=== PATIENT | male | born 1950 | race Caucasian/White ===

== ENCOUNTER → 2016-10-16 | Outpatient (CLI) | payer MEDICARE, OTHER ==
--- NOTE | 2016-10-16 11:06 | XR ---
EXAMINATION TYPE: XR Hip RT and AP Pelvis DATE OF EXAM: 10/16/2016 10:30 AM COMPARISON: NONE HISTORY: Pain TECHNIQUE: A single AP view of the pelvis is obtained. Two views of the right hip are obtained. FINDINGS: There is no acute fracture/dislocation evident in the pelvis. The hip and sacroiliac join ts appear symmetric and unremarkable. The overlying soft tissue appears unremarkable. Two views of right hip show no acute fracture or dislocation. No focal lytic or sclerotic lesion see n in the proximal right femur. The overlying soft tissue is unremarkable. IMPRESSION: There is no acute fracture or dislocation in the pelvis or hip.
== END | disposition home or self-care (01) ==
LOC: RADXRMAIN 10:18
PROVIDERS: ATTEND Family Medicine
DX: M25.851 Other specified joint disorders, right hip (principal)
CPT/HCPCS: 73502

== ENCOUNTER → 2017-02-09 | Outpatient (CLI) | payer MEDICARE, OTHER ==
--- NOTE | 2017-02-09 12:56 | XR ---
EXAMINATION TYPE: XR chest 2V DATE OF EXAM: 02/09/2017 12:48 PM COMPARISON: NONE HISTORY: Shortness of breath TECHNIQUE: Frontal and lateral views of the chest are obtained. FINDINGS: Scattered senescent parenchymal changes noted. Hyperinflation compatible with COPD. No evidence for infiltrate. No evidence for atelectasis. Heart size is stable. Mediastinal structures are stable and grossly unremarkable. No evidence for hilar prominence. Degenerative changes dorsal spine. IMPRESSION: 1. No evidence for acute pulmonary disease.
== END | disposition home or self-care (01) ==
LOC: RADXRMAIN 12:21
PROVIDERS: ATTEND Family Medicine
DX: Z01.818 Encounter for other preprocedural examination (principal); I10 Essential (primary) hypertension
CPT/HCPCS: 71020; 93005

== ENCOUNTER → 2017-02-13 | Outpatient (CLI) | payer MEDICARE, OTHER ==
[2017-02-13 09:35] LABS: Prothrombin Time 10.6 sec (9.0-12.0)
[2017-02-13 09:43] LABS: Partial Thromboplastin Time 21.7 sec (22.0-30.0)
== END | disposition home or self-care (01) ==
LOC: LABWHC1 09:02
PROVIDERS: ATTEND Family Medicine
DX: Z01.812 Encounter for preprocedural laboratory examination (principal)
CPT/HCPCS: 36415; 85610; 85730

== ENCOUNTER → 2017-04-08 | Outpatient (CLI) | payer MEDICARE, OTHER ==
--- NOTE | 2017-04-08 14:18 | US ---
EXAMINATION TYPE: US venous doppler duplex LE DATE OF EXAM: 04/08/2017 2:04 PM COMPARISON: US CLINICAL HISTORY: M79.661, M79.662 Pain-Bilateral legs. Follow up after hip replacement SIDE PERFORMED: Bilateral TECHNIQUE: The lower extremity deep venous system is examined utilizing real time linear array sonog alan with graded compression, doppler sonography and color-flow sonography. VESSELS IMAGED: External Iliac Vein (EIV) Common Femoral Vein Deep Femoral Vein Greater Saphenous Vein * Femoral Vein Popliteal Vein Small Saphenous Vein * Proximal Calf Veins (* superficial vessels) Grayscale, color doppler, spectral doppler imaging performed of the deep veins of the lower extremiti es. There is normal flow, compressibility, vascular waveforms bilaterally. Right Leg: Appears negative for DVT Left Leg: Appears negative for DVT IMPRESSION: No evidence for DVT.
== END | disposition home or self-care (01) ==
LOC: RADUSWWP 13:39
PROVIDERS: ATTEND Orthopaedic Surgery
DX: M79.661 Pain in right lower leg (principal); M79.662 Pain in left lower leg
CPT/HCPCS: 93970

== ENCOUNTER → 2017-04-29 | Outpatient (CLI) | payer MEDICARE, OTHER ==
--- NOTE | 2017-04-29 11:48 | XR ---
EXAMINATION TYPE: XR lumbosacral spine min 4V DATE OF EXAM: 04/29/2017 CLINICAL HISTORY: Low back pain TECHNIQUE: Frontal, lateral, and oblique images of the lumbar spine are obtained. COMPARISON: Lumbar spine x-ray August 19, 2016 FINDINGS: There are 5 lumbar type vertebral bodies redemonstrated. The lumbar spine shows satisfact ory alignment without evidence of acute fracture or dislocation. Vertebral body heights normal limits . There is persistent mild to moderate disc space narrowing and spurring L3-L4 level. There is persis tent moderate to severe disc space narrowing with mild spurring L5-S1 level. Vacuum disc phenomenon i s present bilaterally at these levels. Facet arthropathy mid to lower lumbar levels is redemonstrated . Osseous structures are somewhat demineralized. The oblique images appear within normal limits. Vasc ular calcification of overlying abdominal aorta is seen. There is partial visualization of metallic h ardware from hip surgery. IMPRESSION: Multilevel degenerative changes L4-L5 and L5-S1 level redemonstrated, no significant ramirez ge from prior.
--- NOTE | 2017-04-29 11:52 | XR ---
EXAMINATION TYPE: XR pelvis AP view DATE OF EXAM: 04/29/2017 CLINICAL HISTORY: Low back and pelvic pain. TECHNIQUE: A single AP view of the pelvis is obtained. COMPARISON: Pelvic x-ray 10/16/2016. FINDINGS: There is no acute fracture/dislocation evident in the pelvis. Metallic hardware from left hip surgery is redemonstrated only partially imaged. Slight asymmetric protrusion on the left is stab le. There is interval total right hip replacement. Sacroiliac joints are maintained. Surgical clips l eft groin is redemonstrated. Osseous structures are overall somewhat demineralized. Pubic symphysis i s not suspiciously widened. IMPRESSION: There is no new or acute finding identified to account for patient's symptoms. Other fin dings as noted above.
--- NOTE | 2017-04-29 11:54 | XR ---
EXAMINATION TYPE: XR sacrum coccyx DATE OF EXAM: 04/29/2017 COMPARISON: NONE HISTORY: 2 views of sacrum and coccyx are obtained TECHNIQUE: Low back and sacral pain FINDINGS: Osseous structures are demineralized. There is no acute displaced sacral or coccygeal fract ure seen. Sacroiliac joints are maintained. Tubular and punctate densities overlying the lower pelvis are felt to reflect central zone calcifications in prostate gland. IMPRESSION: No significant new or acute finding is seen to account for patient's symptoms.
== END | disposition home or self-care (01) ==
LOC: RADXRMAIN 11:10
PROVIDERS: ATTEND Family Medicine
DX: M47.817 Spondylosis without myelopathy or radiculopathy, lumbosacral region (principal); M53.3 Sacrococcygeal disorders, not elsewhere classified; R10.2 Pelvic and perineal pain
CPT/HCPCS: 72110; 72170; 72220

== ENCOUNTER → 2017-11-23 | Outpatient (CLI) | payer MEDICARE, OTHER ==
--- NOTE | 2017-11-23 12:53 | MR ---
EXAMINATION TYPE: MR lumbar spine wo con DATE OF EXAM: 11/23/2017 11:26 AM COMPARISON: NONE HISTORY: Radiculopathy, lumbar region, pain Multiplanar, MultiSpin echo imaging of the lumbar spine was performed. L1-L2: Normal disc appearance without desiccation. No herniation, protrusion or disc bulging. No ca nal stenosis is present. Foramina are patent bilaterally. L2-L3: Normal disc appearance without desiccation. No herniation, protrusion or disc bulging. No ca nal stenosis is present. Foramina are patent bilaterally. L3-L4: Mild disc desiccation noted. Mild posterior disc bulge with mild effacement ventral thecal sac . Hypertrophy of the ligamentum flavum and facet joint arthropathy result in borderline central steno sis. Mild left greater than right foraminal encroachment. L4-L5: Moderate to severe disc desiccation. Circumferential disc bulge greatest posteriorly. Effaceme nt of the ventral thecal sac without central stenosis. Bilateral foraminal encroachment. L5-S1: Severe disc desiccation with partial encapsulating spur resulting in disc endplate complex. Mi ld effacement ventral thecal sac. No evidence for central stenosis. Bilateral foraminal encroachment. Lumbar segments are intact. No paraspinal masses are identified. Conus medullaris has a normal appe arance. Ventral spondylosis identified. IMPRESSION: 1. Degenerative disc disease as discussed. 2. Borderline central stenosis at L3-4. 3. Varying degrees of foraminal encroachment as outlined above.
== END | disposition home or self-care (01) ==
LOC: RADMRIMAIN 10:46
PROVIDERS: ATTEND Family Medicine
DX: M51.16 Intervertebral disc disorders with radiculopathy, lumbar region (principal)
CPT/HCPCS: 72148

== ENCOUNTER → 2018-01-12 | Outpatient (CLI) | payer MEDICARE, OTHER ==
[2018-01-08 13:33] VITALS: BMI 31.3
[2018-01-12 11:59] VITALS: BP 190/97; PULSE 56; RESP 16
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
--- NOTE | 2018-01-12 12:23 | P.PN ---
Progress Note - Text Progress Note Date: 01/12/18 This is an addendum to the note dictated earlier= patient blood pressure measurement was 190/97 measured , after multiple measurement, she'll continue to have severe pressure, patient is advised to see his primary care TISH and he reports that he is in his see her today, and he will discuss with his primary care , the appropriate treatment for hypertension
== END | disposition home or self-care (01) ==
LOC: PNWHC3 10:39
PROVIDERS: ATTEND Specialist
DX: G89.29 Other chronic pain (principal); M54.5 Low back pain; M51.36 Other intervertebral disc degeneration, lumbar region; M47.816 Spondylosis without myelopathy or radiculopathy, lumbar region; M46.86 Other specified inflammatory spondylopathies, lumbar region; I25.10 Atherosclerotic heart disease of native coronary artery without angina pectoris; E11.9 Type 2 diabetes mellitus without complications; E78.5 Hyperlipidemia, unspecified; I10 Essential (primary) hypertension; I25.2 Old myocardial infarction; Z87.891 Personal history of nicotine dependence; Z95.1 Presence of aortocoronary bypass graft; Z79.891 Long term (current) use of opiate analgesic
CPT/HCPCS: 99211

== ENCOUNTER 2018-02-22 07:49 | Day surgery (SDC) | payer MEDICARE, OTHER ==
[2018-02-18 10:26] VITALS: BMI 32.1
[~2018-02-22 07:49] MED LIST: LACTATED RINGERS 1,000 ML IV SCH
[2018-02-22 09:45] VITALS: RESP 16; TEMP 97.9
[2018-02-22] MEDS ORDERED: LIDOCAINE 1% 20 ML VIAL (10MG/ML) FOR IV START INTRADERMA ONE (09:52)
[2018-02-22 09:55] LABS: Glucose,Whole Blood 118 mg/dL (75-99)
--- NOTE | 2018-02-22 11:04 | P.PCN ---
Date of Procedure: 02/22/18 Surgeon: Basim Tierney Description of Procedure: PREOPERATIVE DIAGNOSIS: Lumbar spondylosis without myelopathy and facet arthropathy. POSTOPERATIVE DIAGNOSIS: Lumbar spondylosis without myelopathy and facet arthropathy. PROCEDURE : L3-L4, L4-L5 and L5-S1 diagnostic medial branch blocks under fluoroscopic guidance. The procedure is performed using fluoroscopic guidance during needle placement to assure proper position and maximize safety. ANESTHESIA: Local with 1% lidocaine; conscious sedation with IV versed EBL: Minimal PROCEDURE INDICATION: Patient with lumbar facet arthropathy signs and symptoms, here for diagnostic medial branch block #2 today. Pt does not take any blood thinning medications. PROCEDURE DESCRIPTION: The patient was seen and identified in the preoperative area. Risks, benefits, complications, and alternatives were discussed with the patient (including but not limited to incomplete pain relief, bleeding, infection, nerve damage, and allergies to medications), the patient agreed to proceed with the procedure and signed the consent after all questions were answered. Patient was taken to the OR and time out was completed to verify proper patient, position, laterality of pain, and allergies. Pt was placed in the prone position and a pillow was placed under the abdomen to reduce lumbar lordosis. The lumbosacral area was prepped and draped in the usual sterile fashion. Using oblique fluoroscopy, the eye of the "Yrn dog" of right L4 vertebral body, which corresponds to the path of the medial branch originating from the level above, which is L3 in this case, was identified. Subsequently, a 22-gauge 3.5-inch spinal needle was inserted under fluoroscopic guidance toward the eye of the "Yrn dog" of the right L4 vertebral body, corresponding to the junction of the superior articular process and the transverse process of the pedicle of the same level. After needle tip confirmation on lateral view and after negative aspiration for CSF and blood and without paresthesias, 1 mL of a 6 ml solution of 0.5% preservative-free bupivacaine and 40 mg Kenalog was injected. Subsequently the needle was withdrawn intact and the same procedure was repeated for the right L4, right L5, left L3, left L4, and left L5 medial branches which together with right L3 medial branch correspond to the sensory innervation of the bilateral L3-L4, L4-L5, and L5-S1 facet joints. Needle was withdrawn intact after each injection. At the end of the procedure, the skin was cleansed and bandages were applied. COMPLICATIONS: None. DISPOSITION/PLAN: The patient taken to the recovery area after the procedure in a stable condition for observation. Patient was reexamined prior to discharge and there were no issues. Patient was discharged home, accompanied by an adult, after meeting discharged criteria. Discharge instructions were give to the patient by the staff. Patient was specifically instructed not to drive today and to rest for the rest of the day. Patient will follow up in the clinic clinic in 2-4 weeks.
[2018-02-22] MEDS ORDERED: IV FLUID CONTINUATION 1,000 ML IV ONE (11:10)
--- NOTE | 2018-02-22 11:30 | FL ---
Fluoroscopy HISTORY: Pain 7 seconds fluoroscopy time supplied to the referring clinician. 3 intraoperative C-arm images docume nt the procedure. See dictated report from anesthesia.
[2018-02-22 11:32] VITALS: BP 162/78; PULSE 57
== END 2018-02-22 11:48 | disposition home or self-care (01) ==
LOC: ORPAIN 07:49
PROVIDERS: ATTEND Anesthesiology
DX: M47.816 Spondylosis without myelopathy or radiculopathy, lumbar region (principal); I25.10 Atherosclerotic heart disease of native coronary artery without angina pectoris; I10 Essential (primary) hypertension; E11.9 Type 2 diabetes mellitus without complications; Z88.6 Allergy status to analgesic agent
CPT/HCPCS: 64493; 64494; 64495; J2250; J3301; 99152

== ENCOUNTER → 2018-03-04 | Outpatient (CLI) | payer MEDICARE, OTHER ==
[2018-03-04 12:50] VITALS: BP 187/88; PULSE 54; RESP 16
--- NOTE | 2018-03-04 13:06 | P.PAINPG ---
Subjective Progress Note Date: 03/04/18 Principal diagnosis: Bilateral lumbar spondylosis His very pleasant 67-year-old gentleman who is seen in our clinic for intractable low back pain. He is undergone previous diagnostic medial branch blocks on 2 separate occasions. The first time gave him nearly 2 weeks of complete pain relief. The second time relieves his pain 100% for 3 days. He presents today requesting further management of his low back pain. Objective - Vital Signs Vital signs: Vital Signs Temp Pulse 54 L 03/04/18 12:43 Resp 16 03/04/18 12:43 BP 187/88 03/04/18 12:43 Pulse Ox 98 03/04/18 12:43 Intake & Output 03/03/18 03/04/18 03/04/18 18:59 06:59 18:59 Weight 92.986 kg - Exam General: The patient is alert and oriented. Patient is not sedateded Patient is a question appropriately. Cardiac: Heart is regular in rate and rhythm Respiratory: Clear to auscultation. No audible wheezes. Abdomen: Soft nontender nondistended. Lower extremities: Strength is normal bilaterally. Sensation is normal bilaterally. Reflexes are preserved and symmetric bilaterally. Straight leg raise is negative bilaterally. Facet loading maneuvers are positive bilaterally. Range of motion of her back extension is limited secondary to pain. Assessment and Plan (1) Lumbar spondylosis Current Visit: Yes Status: Acute Code(s): M47.816 - SPONDYLOSIS W/O MYELOPATHY OR RADICULOPATHY, LUMBAR REGION SNOMED Code(s): 522627623 Plan: Plan of Care 1. Medications: Patient does not receive any medications from our clinic. 2. Interventions: We'll schedule the patient for lumbar radio frequency ablation. The first appointment will be for this procedure to be performed on the right side at the L3, L4, L5 and S1 levels. This would be repeated on the left side as needed. 3. Referrals: None 4. Testing: None 5. Psychological: Patient denies significant anxiety or depression. PQRS Measure Charge Sheet Measure #226: Tobacco Use: Screen & Cessation Intervention: Pt screened for tobacco use AND intervention given Measure #111: Pneumonia Vaccination: Pneumococcal vaccine NOT administered or previously given Measure #47: Advance Care Plan: Advance care planning discussed & documented, pt chose/unable to give Measure #412: Opioid Treatment Agreement: No documentation of signed opioid treatment agreement Measure #408: Opioid Therapy Follow-up Evaluation: Patient had NO f/u eval minimum every 3 months during opioid therapy Measure #317: Preventitive Care & Scrn High Bld Press & F/U: Pre-hypertensive or hypertensive BP documented, pt will f/u with PCP Measure #131: Pain Assessment & Follow-up: Pain positive & plan documented Measure #431: Unhealthy Alcohol Use Preventative Care & Scrn: Patient not identified as an unhealthy alcohol user PQRS Narrative: Smoking Status Former smoker Do You Want the Pneumonia Vaccine Up to Date Vaccine AT THIS TIME? Blood Pressure 187/88 Pain Intensity [Bilateral 8 Lower Back] Scale Used Numeric (1 - 10) Hx Alcohol Use (MH) Yes: occ Home Medications: Ambulatory Orders Allopurinol [Zyloprim] 100 mg PO DAILY 01/20/18 Aspirin 1 tab PO HS 01/20/18 Atorvastatin Calcium [Lipitor] 10 mg PO HS 01/20/18 Hydrocodone/Acetaminophen [[place] 7.5-325] 1 tab PO Q6HR PRN 01/20/18 Lisinopril 40 mg PO DAILY 01/20/18 Metoprolol Tartrate [Lopressor] 75 mg PO BID 01/20/18 Niacin [Niacin ER] 1 tab PO HS 01/20/18 Pantoprazole Sodium [Protonix] 40 mg PO DAILY 01/20/18 Torsemide [Demadex] 10 mg PO DAILY 01/20/18 amLODIPine [Norvasc] 10 mg PO DAILY 01/20/18 metFORMIN HCL [Glucophage] 500 mg PO BID 01/20/18 Controlled Substance Measures - Controlled Substance Measures Is patient prescribed a controlled substance at discharge?: No
== END | disposition home or self-care (01) ==
LOC: PNWHC3 11:52
PROVIDERS: ATTEND Pain Medicine Pain Medicine
DX: M47.816 Spondylosis without myelopathy or radiculopathy, lumbar region (principal); Z79.82 Long term (current) use of aspirin; Z79.899 Other long term (current) drug therapy
CPT/HCPCS: 99211

== ENCOUNTER 2018-03-10 09:11 | Day surgery (SDC) | payer MEDICARE, OTHER ==
[2018-03-04 15:08] VITALS: BMI 32.1
[2018-03-10 10:19] VITALS: TEMP 97.9
[2018-03-10 10:24] LABS: Glucose,Whole Blood 131 mg/dL (75-99)
--- NOTE | 2018-03-10 11:23 | P.PCN ---
Date of Procedure: 03/10/18 Surgeon: Basim Tierney Pathology: none sent Condition: stable Disposition: PACU Description of Procedure: PREOPERATIVE DIAGNOSIS: Lumbar spondylosis without myelopathy POSTOPERATIVE DIAGNOSIS: Lumbar spondylosis without myelopathy PROCEDURES : Rt Radiofrequency thermocoagulation,L2-4, L3-L4, L4-L5, and L5-S1 medial branch, with fluoroscopic guidance ANESTHESIA: IV moderate conscious sedation with versed and fentanyl and local infiltration with lidocaine 1% 5 ml EBL: Minimal PROCEDURE INDICATION: The patient with low back pain secondary to lumbar facet arthropathy who had more than 50% relief of her pain with previous diagnostic lumbar medial branch block with bupivacaine. PROCEDURE DESCRIPTION / TECHNIQUE: The patient was seen and identified in the preoperative area. Risks, benefits, complications, including but not limited to risk of infection ,bleeding , allergic reactions to the medications and no complete pain relief , and alternatives were discussed with the patient, the patient agreed to proceed with the procedure and signed the consent. IV was started. Vital signs remained stable throughout the procedure. Patient was taken to the OR and time out was completed. The patient was placed in the prone position on the procedure table. The lumber area was prepped and draped in the usual sterile fashion. . Vital signs were closely monitored during the procedure .IV sedation was used during the procedure to decrease patients anxiety. The target points were identified as follows: For the L5-S1 level which corresponds to the dorsal ramus of L5 the target point was at the superior medial aspect of the sacral ala on the --rt-- side of the spine on the AP view of fluoroscopy and for the L2, L3, and L4 medial branches the target points were at the connection between the transverse process and the superior articular process of L3, L4, and L5 vertebra respectively on the -Rt--- oblique view of fluoroscopy. skin was marked, and localized with 1% lidocaineat these points. Subsequently, an 18 [id number] radiofrequency needles with a 10-mm curved active tips were advanced guided by fluoroscopy to each of the target points mentioned above in a superior medial direction to get the active tips as parallel as possible to the medial branches tracks. AP, oblique, and lateral views of fluoroscopy were used to verify needle tips position. Each level then underwent motor testing at 2.5 Hz and 0 to 3 volt with local stimulation, but no radicular symptoms down the legs. I then injected 1 mL of lidocaine 1% in each needle before starting radiofrequency thermocoagulation at 80 degrees celsius for 90 seconds and then I injected 1 ml of a solution made up of PF ropivacaine 0.5%(3 mls) with 40 mg of Kenalog. At the end of the procedure, the skin was cleansed and bandages were applied. COMPLICATIONS: No acute complications. DISPOSITION / PLANS: The patient was placed in a supine position and transferred to the recovery area in a stable condition for observation and was discharged from the recovery room after meeting discharge criteria. Home discharge instructions given to the patient by the staff. The patient was reexamined prior to discharge. The patient will schedule the same procedure to be done on the left side in 2-4 weeks from now.
[2018-03-10] MEDS ORDERED: IV FLUID CONTINUATION 1,000 ML IV ONE (11:32)
[2018-03-10 11:38] VITALS: RESP 18
[2018-03-10 11:41] LABS: Glucose,Whole Blood 123 mg/dL (75-99)
[2018-03-10 11:53] VITALS: BP 170/75; PULSE 53
--- NOTE | 2018-03-10 12:03 | FL ---
Fluoroscopy INDICATION: Pain FINDINGS: Fluoroscopy time: 12 seconds. Images obtained: 4. IMPRESSIONS: 1. Documentation of fluoroscopy.
== END 2018-03-10 12:06 | disposition home or self-care (01) ==
LOC: ORPAIN 09:11
PROVIDERS: ATTEND Anesthesiology
DX: M47.816 Spondylosis without myelopathy or radiculopathy, lumbar region (principal); I10 Essential (primary) hypertension; E11.9 Type 2 diabetes mellitus without complications
CPT/HCPCS: 64635; 64636 ×3; J2250; J3301; J3010; 99152

== ENCOUNTER 2018-04-05 07:02 | Day surgery (SDC) | payer MEDICARE, OTHER ==
[2018-03-31 09:12] VITALS: BMI 32.1
[2018-04-05 07:40] VITALS: RESP 18; TEMP 98.2
[2018-04-05] MEDS ORDERED: LACTATED RINGERS 1,000 ML IV ONE (07:41)
[2018-04-05] MEDS ORDERED: LIDOCAINE 1% 20 ML VIAL (10MG/ML) FOR IV START INTRADERMA ONE (07:44)
[2018-04-05 07:47] LABS: Glucose,Whole Blood 126 mg/dL (75-99)
--- NOTE | 2018-04-05 08:23 | P.OP ---
Date of Procedure: 04/05/18 Surgeon: Christian Sainz Description of Procedure: Procedure(s) Performed: PREOPERATIVE DIAGNOSIS: 1. Lumbar Spondylosis with Facet Arthropathy without myelopathy. 2-. Lumber degenerative disc disease POSTOPERATIVE DIAGNOSIS: 1. Lumbar Spondylosis with Facet Arthropathy without myelopathy. 2-. Lumber degenerative disc disease PROCEDURES: Left Radiofrequency thermocoagulation, L4,L5, Sacral Ala medial branch, with fluoroscopic guidance SURGEON: Christian Sainz MD. ANESTHESIA: Moderate sedation with intravenous versed 2 mg and fentanyl 100 mcg and local infiltration with lidocaine 1% 4 ml EBL: Minimal PROCEDURE INDICATION: The patient with low back pain secondary to lumbar facet arthropathy who had more than 50% relief of pain with previous diagnostic lumbar medial branch block with bupivacaine. PROCEDURE DESCRIPTION / TECHNIQUE: The patient was seen and identified in the preoperative area. Risks, benefits, complications, including but not limited to risk of infection ,bleeding , allergic reactions to the medications and no complete pain relief , and alternatives were discussed with the patient, the patient agreed to proceed with the procedure and signed the consent. IV was started. The operative site was marked. Patient was taken to the OR and time out was completed. The patient was placed in the prone position on the procedure table. The lumber area was prepped and draped in the usual sterile fashion. . Vital signs were closely monitored during the procedure .IV sedation was used during the procedure to decrease patients anxiety. Using AP and then oblique fluoroscopy, the ``eye of the Yrn dog corresponding to the connection between the superior and transverse articular processes of the above-mentioned levels were identified, marked, and localized with 1% lidocaine. Subsequently, a [id number] radiofrequency cannula with a 10-mm active tip was advanced guided by fluoroscopy to each of the ``eyes of the Yrn dog at each site then underwent sensory testing at 50 Hz and 0 to 1 volt and motor testing at 2.5 Hz and 0 to 3 volt with local stimulation, but no radicular symptoms down the legs. Then the sites underwent radiofrequency thermocoagulation at 80 degrees celsius for 90 seconds after injecting 0.5 ml of PF lidocaine 1%. then After the thermocoagulation done , 1 ml of the block solution containing depomedrol 40 mg and 4 ml of maraine 0.5 % was injected at each levels after negative aspiration of CSF and blood and with no paresthesias. Cannulas were retracted while injecting lidocaine 1% until the needle is out.. At the end of the procedure, the skin was cleansed and bandages were applied. COMPLICATIONS: No acute complications. DISPOSITION / PLANS: The patient was placed in a supine position and transferred to the recovery area in a stable condition for observation and was discharged from the recovery room after meeting discharge criteria. Home discharge instructions given to the patient by the staff. The patient was reexamined prior to discharge.
--- NOTE | 2018-04-05 08:46 | FL ---
Fluoroscopy INDICATION: Pain FINDINGS: Fluoroscopy time: 3 seconds. Images obtained: 3. IMPRESSIONS: 1. Documentation of fluoroscopy.
[2018-04-05] MEDS ORDERED: IV FLUID CONTINUATION 1,000 ML IV ONE (08:53)
[2018-04-05 08:57] VITALS: PULSE 53
[2018-04-05 09:14] VITALS: BP 158/83
[2018-04-05 09:30] LABS: Glucose,Whole Blood 132 mg/dL (75-99)
== END 2018-04-05 09:30 | disposition home or self-care (01) ==
LOC: ORPAIN 07:02
PROVIDERS: ATTEND Pain Medicine Pain Medicine
DX: M47.816 Spondylosis without myelopathy or radiculopathy, lumbar region (principal); M51.36 Other intervertebral disc degeneration, lumbar region; Z79.82 Long term (current) use of aspirin; Z88.6 Allergy status to analgesic agent
CPT/HCPCS: 64635; 64636; J2250; J1030; J2001; 99152

== ENCOUNTER → 2018-05-03 | Outpatient (CLI) | payer MEDICARE, OTHER ==
[2018-05-03 13:54] VITALS: BP 166/86; PULSE 67; RESP 16
--- NOTE | 2018-05-03 14:10 | P.PN ---
Subjective Progress Note Date: 05/03/18 Principal diagnosis: Lumbar spondylosis without myelopathy and degenerative disc disease This is a 67-year-old gentleman with history of chronic lower back pain with no radiation down the lower extremities. The patient denies any numbness or tingling in the lower extremities or any weakness. He also denies any bowel or bladder dysfunction. He just had lumbar medial branch radio frequency ablation recently which gave him significant relief of his pain however he feels his back pain at a higher level now above the procedure level. He used to be on Muddy for his pain and he was taken Muddy sparingly 1-2 pills a day however his physician stopped prescribing Muddy for him. He states that when he was on Muddy he had better pain control and he was able to do his daily activities in a better way. n addition to above, 13-point review of systems is also negative for chest pain , shortness of breath, changes in vision, changes in hearing, new onset weakness , abdominal pain, diarrhea, extreme fatigue, malaise, fever, skin changes, homicidal or suicidal ideation, or bowel or bladder incontinence. Vital Signs: Reviewed in EMR Gen: WDWN, AAOx3, NAD HEENT: NCAT, EOMI, hearing grossly normal Pulm: resp unlabored Neck: supple, trachea midline ROM in flexion lumbar spine: reduced ROM in extension lumbar spine: reduced Lumbar paravertebral tenderness: + Straight leg raise: _ Neuro: CN II-XII grossly intact, muscle strength lower extremities PRESERVED Deep tendon reflexes in the lower extremities normal and symmetrical Imaging: Reviewed in EMR Assessment: lumbar spondylosis without myelopathy Severe disc desiccation in the lumbar area Chronic pain syndrome Plan: 1. Explanation: Opioid and psychological risk scores were reviewed. Diagnoses , prognoses, and multiple treatment options including but not limited to physical therapy, interventional therapies, adjuvant medical therapies, narcotic medication therapies, and surgery were discussed with the patient and all questions were answered to the patient's satisfaction. 2. Opioid agreement: We do not prescribe opioids 3. Counseling: The patient was counseled extensively on SMOKING CESSATION, BODY MASS INDEX, EXERCISE. Specifically, the patient was instructed regarding the importance of smoking cessation, obesity, and exercise in the context of both chronic pain and overall health. 4. Procedures: None at this point 5. Consultations: Referred to Dr. Mejia for possible opioid treatment 6. Investigations: None 7. Medications: No prescriptions are given today 8. Disposition: f/u in the pain clinic on an as-needed basis Objective - Vital Signs Vital signs: Vital Signs Temp Pulse 67 05/03/18 13:49 Resp 16 05/03/18 13:49 BP 166/86 05/03/18 13:49 Pulse Ox 95 05/03/18 13:49 Intake & Output 05/02/18 05/03/18 05/03/18 18:59 06:59 18:59 Weight 92.986 kg
== END | disposition home or self-care (01) ==
LOC: PNWHC3 13:31
PROVIDERS: ATTEND Anesthesiology
DX: G89.4 Chronic pain syndrome (principal); M54.5 Low back pain; M51.36 Other intervertebral disc degeneration, lumbar region; M47.816 Spondylosis without myelopathy or radiculopathy, lumbar region; Z79.891 Long term (current) use of opiate analgesic
CPT/HCPCS: 99211

== ENCOUNTER → 2018-11-18 | Outpatient (CLI) | payer MEDICARE, OTHER ==
--- NOTE | 2018-11-18 08:36 | US ---
EXAMINATION TYPE: US abdomen limited DATE OF EXAM: 11/18/2018 COMPARISON: NONE CLINICAL HISTORY: Elevated liver enzymes R94.5. EXAM MEASUREMENTS: Liver Length: 11.1 cm Gallbladder Wall: 0.2 cm CBD: 0.6 cm Right Kidney: 10.1 x 4.7 x 5.1 cm Pancreas: limited visualization due to midline bowel gas Liver: wnl Gallbladder: No stones seen, folds noted Evidence for sonographic Miner's sign: No CBD: wnl Right Kidney: No hydronephrosis or masses seen IMPRESSION: 1. No distinct abnormality appreciated.
== END | disposition home or self-care (01) ==
LOC: RADUSWWP 07:57
PROVIDERS: ATTEND Nurse Practitioner Family
DX: R74.8 Abnormal levels of other serum enzymes (principal)
CPT/HCPCS: 76705

== ENCOUNTER 2019-02-08 14:37 | Inpatient (IN) | payer MEDICARE, OTHER ==
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
[2019-02-08] MEDS: SODIUM CHLORIDE 0.9% 1,000 ML IV STA (15:12)
[2019-02-08 15:19] LABS: Basophils % (A) 0 %; Eosinophils # (A) 0.1 k/uL (0-0.7); Eosinophils % (A) 2 %; HCT 39.1 % (39.0-53.0); HGB 13.2 gm/dL (13.0-17.5); Lymphocytes # (A) 1.4 k/uL (1.0-4.8); Lymphocytes % (A) 30 %; MCHC 33.8 g/dL (31.0-37.0); MCV 88.8 fL (80.0-100.0); Mean Platelet Volume 6.5; Monocytes # (A) 0.3 k/uL (0-1.0); Monocytes % (A) 7 %; Neutrophils # (A) 2.6 k/uL (1.3-7.7); Neutrophils % (A) 56 %; Platelet Count 179 k/uL (150-450); RBC 4.41 m/uL (4.30-5.90); RDW 14.1 % (11.5-15.5); WBC 4.6 k/uL (3.8-10.6)
[2019-02-08 15:28] LABS: INR 0.9 (<1.2); Prothrombin Time 10.1 sec (9.0-12.0)
[2019-02-08 15:37] LABS: Albumin 4.5 g/dL (3.5-5.0); Calcium 9.7 mg/dL (8.4-10.2); Magnesium 1.5 mg/dL (1.6-2.3); Phosphorus 3.3 mg/dL (2.5-4.5); Potassium 3.5 mmol/L (3.5-5.1); Total Bilirubin 0.6 mg/dL (0.2-1.3); Total Protein 7.1 g/dL (6.3-8.2)
[2019-02-08] MEDS ORDERED: HEPARIN SODIUM,PORCINE 5,000 UNIT/ML 1 ML VIAL IV ONE (16:25)
[2019-02-08] MEDS ORDERED: HEPARIN SODIUM,PORCINE 5,000 UNIT/ML 1 ML VIAL IV PRN (16:25)
[2019-02-08] MEDS ORDERED: HEPARIN SOD,PORK IN 0.45% NACL 25,000 UNIT in 0.45% NACL 1 250ML.BAG IV SCH (16:30)
[2019-02-08] MEDS ORDERED: NITROGLYCERIN SL TABS 0.4 MG TAB SUBLINGUAL PRN (16:32)
[2019-02-08] MEDS ORDERED: ASPIRIN 81 MG PO STA (16:32)
[2019-02-08] MEDS ORDERED: ACETAMINOPHEN TAB 325 MG TAB PO PRN (17:08)
[2019-02-08] MEDS ORDERED: NALOXONE 0.4 MG/ML 1 ML VIAL IV PRN (17:08)
[2019-02-08] MEDS ORDERED: MORPHINE SULFATE 2 MG/ML SYRINGE IV PRN (17:08)
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
[2019-02-08] MEDS: MAGNESIUM SULFATE-D5W PMX 1 GM in DEXTROSE/WATER 1 100ML.BAG IVPB SCH ×2 (19:39→21:37)
[2019-02-08 20:50] LABS: Glucose,Whole Blood 110 mg/dL (75-99)
[2019-02-08] MEDS ORDERED: NIACIN TR 500 MG CAPLET PO SCH (21:00)
[2019-02-08] MEDS ORDERED: ATORVASTATIN 10 MG TAB PO SCH (21:00)
[2019-02-08] MEDS ORDERED: ASPIRIN 325 MG TAB PO SCH (21:00)
[2019-02-08] MEDS ORDERED: METOPROLOL TARTRATE 25 MG TAB PO SCH (21:00)
[2019-02-08] MEDS: METOPROLOL TARTRATE 25 MG TAB PO SCH (21:38)
[2019-02-08] MEDS: TAMSULOSIN 0.4 MG CAP.ER.24H PO SCH (21:38)
[2019-02-09] MEDS: SODIUM CHLORIDE 0.9% 1,000 ML IV STA (00:25)
[2019-02-09 05:16] LABS: Basophils % (A) 0 %; Eosinophils # (A) 0.1 k/uL (0-0.7); Eosinophils % (A) 3 %; HCT 33.5 % (39.0-53.0); HGB 11.6 gm/dL (13.0-17.5); Lymphocytes # (A) 1.1 k/uL (1.0-4.8); Lymphocytes % (A) 26 %; MCH 30.4 pg (25.0-35.0); MCHC 34.6 g/dL (31.0-37.0); Monocytes # (A) 0.3 k/uL (0-1.0); Monocytes % (A) 6 %; Neutrophils # (A) 2.6 k/uL (1.3-7.7); Neutrophils % (A) 62 %; Platelet Count 155 k/uL (150-450); RDW 14.3 % (11.5-15.5); WBC 4.2 k/uL (3.8-10.6)
[2019-02-09 05:46] LABS: Partial Thromboplastin Time 46.5 sec (22.0-30.0); Prothrombin Time 10.7 sec (9.0-12.0)
[2019-02-09 06:05] LABS: Albumin 3.6 g/dL (3.5-5.0); Potassium 3.2 mmol/L (3.5-5.1); Total Bilirubin 0.7 mg/dL (0.2-1.3); Total Protein 6.1 g/dL (6.3-8.2)
[2019-02-09 06:26] LABS: Glucose,Whole Blood 124 mg/dL (75-99)
[2019-02-09] MEDS: INSULIN ASPART (NovoLOG) 100 UNIT/ML VIAL SQ SCH ×2 (06:44→12:40)
[2019-02-09] MEDS ORDERED: POTASSIUM CHLORIDE ER 20 MEQ TAB.ER PO STA (07:28)
[2019-02-09] MEDS ORDERED: PANTOPRAZOLE 40 MG TABLET PO SCH (07:30)
--- NOTE | 2019-02-09 08:26 | P.PN ---
Subjective Progress Note Date: 02/09/19 Principal diagnosis: Palpitations Patient was seen and examined. No acute events overnight. No palpitations overnight. He denies any chest pain, shortness of breath. No dizziness. No nausea or vomiting. No fever or chills. Nothing by mouth for possible intervention today. Objective - Vital Signs Vital signs: Vital Signs Temp 98 F 02/09/19 04:00 Pulse 54 L 02/09/19 04:00 Resp 16 02/09/19 04:00 BP 135/71 02/09/19 04:00 Pulse Ox 98 02/09/19 04:00 Intake & Output 02/08/19 02/09/19 02/09/19 18:59 06:59 18:59 Intake Total 1245.896 Output Total 250 675 Balance -250 570.896 Weight 90.718 kg 92.2 kg Intake: Intake, IV Titration 545.896 Amount Heparin Sod,Pork in 0.45% 145.896 NaCl 25,000 unit In 0.45 % NaCl 1 250ml.bag @ 11. 023 UNITS/KG/HR 10 mls/hr IV .Q24H [facility] Rx#: [id number] Magnesium Sulfate-D5w Pmx 200 1 gm In Dextrose/Water 1 100ml.bag @ 100 mls/hr IVPB Q1H [facility] Rx#: [id number] Sodium Chloride 0.9% 1, 200 000 ml @ 100 mls/hr IV . Q10H [facility] Rx#:[id number] Oral 700 Output: Urine 250 675 Other: # Voids 1 - Exam General: [non toxic], [no distress], [appears at stated age] Derm: [warm], [dry] Head: [atraumatic], [normocephalic], [symmetric] Eyes: [EOMI], [no lid lag], [anicteric sclera] Mouth: [no lip lesion], [mucus membranes moist] Cardiovascular: [S1S2 reg], [no murmur], [positive DP pulse bilateral] Lungs: [CTA bilateral], [no rhonchi, no rales] , [no accessory muscle use] Abdominal: [soft], [ nontender to palpation], [no guarding], [no appreciable organomegaly] Ext: [no gross muscle atrophy], [no edema], [no contractures] Neuro: [ CN II-XI grossly intact], [no focal neuro deficits] Psych: [Alert], [oriented], [appropriate affect] - Labs CBC & Chem 7: 02/09/19 05:00 02/09/19 05:00 Labs: Abnormal Lab Results - Last 24 Hours (Table) 02/08/19 02/08/19 02/08/19 Range/Units 14:50 14:50 20:48 RBC (4.30-5.90) m/uL Hgb (13.0-17.5) gm/dL Hct (39.0-53.0) % APTT (22.0-30.0) sec Potassium (3.5-5.1) mmol/L Glucose 143 H (74-99) mg/dL POC Glucose (mg/dL) 110 H (75-99) mg/dL Magnesium 1.5 L (1.6-2.3) mg/dL ALT 73 H (21-72) U/L Troponin I 0.253 H* (0.000-0.034) ng/mL Total Protein (6.3-8.2) g/dL 02/08/19 02/08/19 02/09/19 Range/Units 21:47 21:47 02:49 RBC (4.30-5.90) m/uL Hgb (13.0-17.5) gm/dL Hct (39.0-53.0) % APTT 35.1 H (22.0-30.0) sec Potassium (3.5-5.1) mmol/L Glucose (74-99) mg/dL POC Glucose (mg/dL) (75-99) mg/dL Magnesium (1.6-2.3) mg/dL ALT (21-72) U/L Troponin I 0.534 H* 0.350 H* (0.000-0.034) ng/mL Total Protein (6.3-8.2) g/dL 02/09/19 02/09/19 02/09/19 Range/Units 02:49 05:00 05:00 RBC 3.80 L (4.30-5.90) m/uL Hgb 11.6 L (13.0-17.5) gm/dL Hct 33.5 L (39.0-53.0) % APTT 46.5 H (22.0-30.0) sec Potassium (3.5-5.1) mmol/L Glucose (74-99) mg/dL POC Glucose (mg/dL) (75-99) mg/dL Magnesium 2.4 H (1.6-2.3) mg/dL ALT (21-72) U/L Troponin I (0.000-0.034) ng/mL Total Protein (6.3-8.2) g/dL 02/09/19 02/09/19 Range/Units 05:00 06:25 RBC (4.30-5.90) m/uL Hgb (13.0-17.5) gm/dL Hct (39.0-53.0) % APTT (22.0-30.0) sec Potassium 3.2 L (3.5-5.1) mmol/L Glucose 103 H (74-99) mg/dL POC Glucose (mg/dL) 124 H (75-99) mg/dL Magnesium (1.6-2.3) mg/dL ALT (21-72) U/L Troponin I (0.000-0.034) ng/mL Total Protein 6.1 L (6.3-8.2) g/dL Assessment and Plan Assessment: Assessment and Plan Palpitations Troponin elevation CAD status post CABG Diabetes mellitus with hyperglycemia Hypertension Hyperlipidemia Hypokalemia Elevated ALT Frequent PVCs seen on telemetry. Concerns for acute coronary syndrome. Potassium is low at 3.2, magnesium within normal limits after replacement. TSH 1.910, within normal limits. Troponin 0.253, 0.534, 0.350 with EKG showing normal sinus rhythm and incomplete RBBB. Plan: ACS ruled out but Troponins remain elevated (unknown reason). Continue metoprolol. Telemetry monitoring. Need to obtain most recent echocardiogram. Replace potassium. Follow cardiology consult. Troponin 0.253, 0.534, 0.350 with EKG showing normal sinus rhythm and incomplete RBBB. Given risk factors, plans to rule out acute coronary syndrome. Lipid panel is within normal limits. Plan: As above. Nitrostat, Tylenol or morphine for pain management. Continue aspirin and Lipitor. Upjeg-ke-hafx glucose 124. Plan: Insulin sliding scale. Hypoglycemic precautions. Regular Accu-Cheks. BP 135/71. Plan: Continue lisinopril and metoprolol. Monitor vitals, adjust medications as necessary. Plan: Continue Lipitor. Follow lipid panel. Potassium 3.4. Replaced by mouth. Plan: BMP in the AM. ALT mildly elevated at 73 to 46. Likely secondary to fatty liver. Lipid panel within normal limits. Plan: Resolved Patient admitted for palpitations. Found to have frequent PVCs on telemetry. Also elevated troponins. Heparin drip started. Cardiology is consulted.
[2019-02-09] MEDS: METOPROLOL TARTRATE 25 MG TAB PO SCH (08:43)
[2019-02-09] MEDS: TAMSULOSIN 0.4 MG CAP.ER.24H PO SCH (08:43)
[2019-02-09 08:47] LABS: Troponin I 0.277 ng/mL (0.000-0.034)
[2019-02-09 08:49] VITALS: RESP 18
[2019-02-09] MEDS ORDERED: ASPIRIN 325 MG TAB PO SCH (09:00)
[2019-02-09] MEDS ORDERED: amLODIPine 10 MG TAB PO SCH (09:00)
[2019-02-09] MEDS ORDERED: TORSEMIDE 20 MG TAB PO SCH (09:00)
[2019-02-09] MEDS ORDERED: LISINOPRIL 20 MG TAB PO SCH (09:00)
[2019-02-09 11:52] VITALS: BP 151/75; PULSE 58; TEMP 98
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
[2019-02-09 12:33] LABS: Glucose,Whole Blood 129 mg/dL (75-99)
[2019-02-09] MEDS ORDERED: ASPIRIN 81 MG PO SCH (21:00)
== END 2019-02-09 14:39 | disposition home or self-care (01) | DRG 310 ==
LOC: EC 14:37 → 3SCARD 16:32
PROVIDERS: ADMIT Internal Medicine; ATTEND Internal Medicine
DX: R00.2 Palpitations (principal); E11.65 Type 2 diabetes mellitus with hyperglycemia; E83.42 Hypomagnesemia; K76.0 Fatty (change of) liver, not elsewhere classified; E87.6 Hypokalemia; E78.5 Hyperlipidemia, unspecified; H40.9 Unspecified glaucoma; I10 Essential (primary) hypertension; I25.10 Atherosclerotic heart disease of native coronary artery without angina pectoris; I25.2 Old myocardial infarction; I45.10 Unspecified right bundle-branch block; G89.29 Other chronic pain; M54.5 Low back pain; R00.0 Tachycardia, unspecified; I49.3 Ventricular premature depolarization; R77.9 Abnormality of plasma protein, unspecified; Z79.82 Long term (current) use of aspirin; Z79.84 Long term (current) use of oral hypoglycemic drugs; Z79.899 Other long term (current) drug therapy; Z88.8 Allergy status to other drugs, medicaments and biological substances; Z87.891 Personal history of nicotine dependence; Z95.1 Presence of aortocoronary bypass graft; Z96.643 Presence of artificial hip joint, bilateral
CPT/HCPCS: 36415; 80053; 80061; 82550; 82553; 83605; 83735; 84100; 84132; 84443; 84484; 85025; 85379; 85610; 85730; 93005; 96365; 96366; 96368; 96376; 99291

== ENCOUNTER 2019-04-28 07:18 | Day surgery (SDC) | payer MEDICARE, OTHER ==
[2019-04-27 08:33] VITALS: BMI 32.1
[2019-04-28] MEDS ORDERED: ALPRAZolam 0.25 MG TAB PO PRN (07:50)
[2019-04-28] MEDS ORDERED: ALPRAZolam 0.5 MG TAB PO PRN (07:50)
[2019-04-28] MEDS ORDERED: NITROGLYCERIN SL TABS 0.4 MG TAB SUBLINGUAL PRN (07:50)
[2019-04-28] MEDS ORDERED: SODIUM CHLORIDE 0.9% 1,000 ML in EMPTY BAG 1 BAG IV ONE (07:50)
[2019-04-28] MEDS ORDERED: ASPIRIN 325 MG TAB PO STA (07:57)
[2019-04-28] MEDS ORDERED: ATORVASTATIN 80 MG TAB PO STA (07:57)
[2019-04-28 08:17] LABS: Glucose,Whole Blood 142 mg/dL (75-99)
[2019-04-28 08:28] LABS: Basophils % (A) 0 %; Eosinophils # (A) 0.1 k/uL (0-0.7); Eosinophils % (A) 2 %; HCT 39.5 % (39.0-53.0); Lymphocytes % (A) 19 %; MCH 28.9 pg (25.0-35.0); MCV 87.8 fL (80.0-100.0); Mean Platelet Volume 6.9; Monocytes # (A) 0.3 k/uL (0-1.0); Monocytes % (A) 5 %; Neutrophils # (A) 3.8 k/uL (1.3-7.7); Neutrophils % (A) 71 %; Platelet Count 185 k/uL (150-450); RDW 14.2 % (11.5-15.5); WBC 5.4 k/uL (3.8-10.6)
[2019-04-28 08:38] LABS: Calcium 9.7 mg/dL (8.4-10.2)
[2019-04-28 08:39] LABS: Potassium 4.7 mmol/L (3.5-5.1)
[2019-04-28] MEDS ORDERED: MIDAZOLAM (PF) 2 MG/2 ML VIAL IV ONE (10:10)
[2019-04-28] MEDS ORDERED: fentaNYL (PF) 50 MCG/ML 2 ML AMP IV ONE (10:10)
[2019-04-28] MEDS ORDERED: LIDOCAINE 1% INJ 10MG/ML (20 ML MDV) SQ ONE (10:13)
[2019-04-28 10:47] LABS: O2 Sat Blood Gas 67.7 %
[2019-04-28] MEDS ORDERED: IOPAMIDOL-370 100ML BTL INJ ONE ×2 (10:47→11:05)
[2019-04-28 10:50] LABS: O2 Sat Blood Gas 71.3 %
[2019-04-28] MEDS ORDERED: RX INFO: IV CONTRAST WAS GIVEN 1 EACH MISC MISCELLANE PRN (11:25)
[2019-04-28] MEDS ORDERED: SODIUM CHLORIDE 0.9% 1,000 ML IV SCH (11:30)
--- NOTE | 2019-04-28 11:45 | P.CARDCATH ---
Date of Procedure: 04/28/19 Preoperative Diagnosis: Coronary artery disease, ventricular tachycardia, nonsustained, and also aortic stenosis Postoperative Diagnosis: Noncritical aortic stenosis. Occlusion of the grafts to the OM branch diagonal and also to the RCA. Patent GAYLE graft to the LAD. Description of Procedure: HISTORY: This is a 68-year-old gentleman with history of ischemic heart disease with previous bypass surgery who was admitted with the dizziness and syncope and subsequent evaluation showed episodes of nonsustained V. tach. He also had evidence of aortic stenosis by echo. Patient is advised to have a right and left heart catheterization to assess underlying ischemic heart disease and also to assess aortic stenosis. CONSENT:I have discussed the risks, benefits and alternative therapies for the above-mentioned procedure and for both sedation/analgesia as well as necessary blood product administration, if indicated, as they pertain to this patient. The patient has indicated understanding and acceptance of the risks and procedures discussed. PROCEDURE: Left heart catheterization: Patient was brought to the lab in a fasting state. Patient was given some IV sedation. The right groin is infiltrated with lidocaine and right femoral artery was entered using Seldinger technique. A 6-[place] catheter was left in place and selective coronary arteriography was performed. Patient tolerated the procedure well. Femoral angiogram was performed and Angio-Seal was applied for hemostasis. Right heart catheterization: The right groin is infiltrated. The right femoral vein was entered using Seldinger technique and a 7-[place] introducer sheath was left in place. A 6-[place] catheter was used for right heart catheterization. Patient tolerated the procedure well. No immediate complications. Manual compression was applied for hemostasis No immediate complications were noted and patient was transferred to [facility] in a stable condition Conscious Sedation: Versed 1mg Fentanyl 50 g Duration 55minutes HEMODYNAMICS: The aortic pressure is about 130/70. Left ventricular end- diastolic pressure is 12. The right atrial pressure was 4. Right ventricular pressure is about 30/10. The have pulmonary artery pressure is about 30/12. The pulmonary wedge pressure is 12. The cardiac output is about 5.9. There is a gradient of 6-10 across the aortic valve. No significant aortic stenosis SELECTIVE CORONARY ARTERIOGRAPHY: LEFT MAIN: Normal length and patent THE LEFT ANTERIOR DESCENDING CORONARY ARTERY:. This is totally occluded after giving rise to diagonal branch. There is critical lesion involving the ostium of the diagonal. The diagonal is a relatively small caliber vessel THE LEFT CIRCUMFLEX AND IS CORONARY ARTERY:. This is a fair caliber vessel giving rise good-sized OM branch. The left system has diffuse disease with a 70% lesion of the ostium of the OM branch. There is also about 60-70% stenosis in the mid circumflex. The PLV branch of the circumflex has about 70-80% lesion THE RIGHT CORONARY ARTERY:. This is a good caliber vessel with diffuse disease in the proximal midportion. There is about 80% stenosis of the proximal right coronary artery. There is areas of about 40-50% stenosis throat length of the RCA. The PDA and PLV branch and good in caliber. The GAYLE graft to the LAD: This is patent at the distal anastomosis and throat its length. The distal LAD is free of any significant occlusive disease. The vein graft to the diagonal: Totally occluded area did The vein graft to the OM branch: Totally occluded The free radial graft to the RCA: Totally occluded LEFT VENTRICULOGRAPHY: Not performed FINAL IMPRESSION:. Total occlusion of vein grafts to the diagonal and also OM branch. Total occlusion of the graft to the RCA. The GAYLE graft to LAD is patent. There is critical lesions involving the RCA and also circumflex. In significant gradient across the aortic valve PLAN: Maximum medical therapy. Stent placement of the RCA and circumflex to be constricted. Films reviewed with Dr. ARTIE Aquino. Patient to be scheduled for stent placement as an outpatient PROGNOSIS:. Fair
[2019-04-28] MEDS ORDERED: HYDROcodone/APAP 5-325MG 1 EACH TAB PO STA (12:20)
[2019-04-28 12:27] LABS: Glucose,Whole Blood 113 mg/dL (75-99)
[2019-04-28 17:15] VITALS: RESP 18
[2019-04-28 17:16] VITALS: BP 152/77
== END 2019-04-28 17:17 | disposition home or self-care (01) ==
LOC: CATHCVL 07:18
PROVIDERS: ATTEND Internal Medicine Cardiovascular Disease
DX: I25.810 Atherosclerosis of coronary artery bypass graft(s) without angina pectoris (principal); I25.10 Atherosclerotic heart disease of native coronary artery without angina pectoris; I35.0 Nonrheumatic aortic (valve) stenosis; I25.82 Chronic total occlusion of coronary artery; I47.2 Ventricular tachycardia; E78.00 Pure hypercholesterolemia, unspecified; E78.5 Hyperlipidemia, unspecified; I10 Essential (primary) hypertension; I25.2 Old myocardial infarction; E11.9 Type 2 diabetes mellitus without complications; Z82.49 Family history of ischemic heart disease and other diseases of the circulatory system; F17.290 Nicotine dependence, other tobacco product, uncomplicated; Z79.84 Long term (current) use of oral hypoglycemic drugs; Z79.899 Other long term (current) drug therapy; Z95.1 Presence of aortocoronary bypass graft; Z88.6 Allergy status to analgesic agent
CPT/HCPCS: 93457; 80048; 85018; 82810; 85025; C1760; C1769 ×2; C1894 ×2; J2001; J3010; Q9967; J2250

== ENCOUNTER → 2019-05-05 | Outpatient (CLI) | payer MEDICARE, OTHER ==
[2019-05-05 17:55] LABS: Anion Gap 9.1 mmol/L (4.00-12.00); BUN/Creat Ratio 14.67 Ratio (12.00-20.00); Calcium 9.6 mg/dL (8.7-10.3); Carbon Dioxide 25.9 mmol/L (21.6-31.8); Potassium 3.4 mmol/L (3.5-5.5)
== END | disposition home or self-care (01) ==
LOC: LABWHC1 14:25
PROVIDERS: ATTEND Internal Medicine Cardiovascular Disease
DX: I25.10 Atherosclerotic heart disease of native coronary artery without angina pectoris (principal); N19 Unspecified kidney failure
CPT/HCPCS: 36415; 80048

== ENCOUNTER → 2019-05-23 | Outpatient (CLI) | payer MEDICARE, OTHER ==
[2019-05-23 11:33] LABS: Magnesium 1.7 mg/dL (1.6-2.3); Potassium 3.9 mmol/L (3.5-5.1)
[2019-05-23 11:37] LABS: HCT 40.9 % (39.0-53.0); HGB 13.3 gm/dL (13.0-17.5); MCH 29.6 pg (25.0-35.0); MCHC 32.5 g/dL (31.0-37.0); MCV 91.1 fL (80.0-100.0); Mean Platelet Volume 6.7; Platelet Count 211 k/uL (150-450); RBC 4.49 m/uL (4.30-5.90); RDW 14.2 % (11.5-15.5); WBC 4.9 k/uL (3.8-10.6)
== END | disposition home or self-care (01) ==
LOC: LABPAT 10:04
PROVIDERS: ATTEND Internal Medicine Interventional Cardiology
DX: Z01.812 Encounter for preprocedural laboratory examination (principal); I10 Essential (primary) hypertension; I25.10 Atherosclerotic heart disease of native coronary artery without angina pectoris
CPT/HCPCS: 80051; 82565; 82947; 83735; 84520; 85027

== ENCOUNTER 2019-05-26 06:10 | Day surgery (SDC) | payer MEDICARE, OTHER ==
[2019-05-24 09:20] VITALS: BMI 31.4
[2019-05-26] MEDS ORDERED: ATORVASTATIN 80 MG TAB PO STA (06:24)
[2019-05-26] MEDS ORDERED: NITROGLYCERIN SL TABS 0.4 MG TAB SUBLINGUAL PRN ×2 (06:24→10:43)
[2019-05-26] MEDS ORDERED: ALPRAZolam 0.5 MG TAB PO PRN (06:24)
[2019-05-26] MEDS ORDERED: ASPIRIN 325 MG TAB PO STA (06:24)
[2019-05-26] MEDS ORDERED: SODIUM CHLORIDE 0.9% 1,000 ML in EMPTY BAG 1 BAG IV ONE (06:24)
[2019-05-26] MEDS ORDERED: ALPRAZolam 0.25 MG TAB PO PRN (06:24)
[2019-05-26 07:38] LABS: Glucose,Whole Blood 145 mg/dL (75-99)
[2019-05-26] MEDS ORDERED: LIDOCAINE 1% INJ 10MG/ML (20 ML MDV) ONE (09:14)
[2019-05-26] MEDS: MIDAZOLAM (PF) 2 MG/2 ML VIAL IV ONE ×2 (09:33→09:35)
[2019-05-26] MEDS ORDERED: LIDOCAINE 1% INJ 10MG/ML (20 ML MDV) SQ ONE (09:33)
[2019-05-26] MEDS ORDERED: HEPARIN SODIUM 1,000 UN/ML (10ML VL) ONE (09:40)
[2019-05-26] MEDS: NITROGLYCERIN 1000MCG/10ML SYRINGE INTRACORON ONE ×2 (09:43→10:09)
[2019-05-26] MEDS ORDERED: CLOPIDOGREL 75 MG TAB ONE ×2 (09:50→10:06)
[2019-05-26] MEDS ORDERED: IOPAMIDOL-370 100ML BTL INJ ONE ×2 (10:06→10:22)
[2019-05-26] MEDS ORDERED: CLOPIDOGREL 75 MG TAB PO ONE (10:06)
[2019-05-26] MEDS ORDERED: HYDROmorphone 1 MG/ML 1 ML SYRINGE ONE (10:14)
[2019-05-26] MEDS ORDERED: BIVALIRUDIN 250 MG VIAL IV ONE (10:20)
[2019-05-26] MEDS ORDERED: SODIUM CHLORIDE 0.9% 50 ML BAG ONE (10:20)
[2019-05-26] MEDS ORDERED: HYDROmorphone 1 MG/ML 1 ML SYRINGE IVP ONE (10:22)
[2019-05-26] MEDS ORDERED: ZOLPIDEM 5 MG TAB PO PRN (10:43)
[2019-05-26] MEDS ORDERED: ATROPINE SULFATE 0.1 MG/ML 10ML SYRINGE IV PRN (10:43)
[2019-05-26] MEDS ORDERED: RX INFO: IV CONTRAST WAS GIVEN 1 EACH MISC MISCELLANE PRN (10:43)
[2019-05-26] MEDS ORDERED: MAG HYDROX/AL HYDROX/SIMETH 30 ML CUP PO PRN (10:43)
[2019-05-26] MEDS ORDERED: SODIUM CHLORIDE 0.9% 1,000 ML IV SCH (10:45)
--- NOTE | 2019-05-26 11:31 | PTCA ---
PERCUTANEOUSTRANS CORORONARY ANGIOGRAPHY DATE OF SERVICE: 05/26/2019. PROCEDURE: PTCA and stenting of a long calcified chronic tortuous lesion involving the proximal and mid RCA with a drug-eluting stent. PERFORMED BY: Dr. Valery Aquino. Moderate conscious sedation time was 43 minutes. Patient was administered Versed and Dilaudid. His oxygen saturation, hemodynamics and EKG were monitored closely. CLINICAL INFORMATION: Mr. Lester Wright is a 51 is a 68-year-old gentleman, history of type 2 diabetes, hypertension, hyperlipidemia, previous aortocoronary bypass surgery in He had separate grafts placed to the circumflex marginal diagonal and RCA and these were all vein grafts and he had a GAYLE to LAD. Because of symptoms of angina pectoris and abnormal stress test with ventricular ectopy, Dr. Hicks performed a cardiac cath a few weeks ago, which revealed that all vein grafts were occluded, but GAYLE was patent. The [place] RCA was diffusely diseased with a lot of plaque throughout and approximately there was 80% to 90% stenosis and the mid lesion there was 70% long area of narrowing. Circumflex also had diffuse disease. Patient has mild renal dysfunction with a creatinine of about 1.32. He was orally hydrated and also intravenously hydrated and brought in for the procedure. PROCEDURE NOTE: Under local anesthesia and strict aseptic precautions, a 6-Emir[place] introducer was placed in the right femoral artery. I used a standard right Shira guide catheter to cannulate the right coronary artery. This patient was pretreated with Plavix for the last 3 days and he received a total of 600 mg over 3 days. He was initiated on an intravenous correction. He was given heparin about a total of 3280-2695 units of intravenous heparin was given and his ACT was about 303. He was already pretreated with Plavix. A standard right Shira guide catheter was used to cannulate the right coronary artery and a run-through wire was used to cross the lesion. A 2.5 caliber 12 mm [place] Trek balloon was used to dilate the mid and proximal lesions. I then deployed a 12 mm long 2.5 caliber Xience stent in the mid lesion and the entire proximal area was covered with a 38 mm long 2.5 caliber Xience stent that was deployed at 14 atmospheres. Patient did not have chest pain but had inferior ST elevation. Excellent angiographic result without complication was achieved. The sheath was taken out and a Perclose device used to secure hemostasis and he was sent to the room in stable condition. Results were discussed with the patient's girlfriend and family members. Excellent angiographic result without complication was achieved. He received about 115 mL of contrast. I will bring him back for circumflex intervention at a later date. Patient will be discharged in 24 hours if he remains stable. He will be hydrated during his stay. ILIA / RENETTAN: [id number] /
[2019-05-26] MEDS: SODIUM CHLORIDE 0.9% 1,000 ML IV SCH ×4 (11:36→23:51)
[2019-05-26 11:47] LABS: Glucose,Whole Blood 117 mg/dL (75-99)
[2019-05-26] MEDS ORDERED: HYDROcodone/APAP 5-325MG 1 EACH TAB PO ONE (12:00)
[2019-05-26] MEDS: ATORVASTATIN 80 MG TAB PO SCH (12:13)
[2019-05-26 16:49] LABS: Glucose,Whole Blood 109 mg/dL (75-99)
[2019-05-26 20:40] LABS: Glucose,Whole Blood 148 mg/dL (75-99)
[2019-05-27 06:43] LABS: Glucose,Whole Blood 130 mg/dL (75-99)
[2019-05-27] MEDS: SODIUM CHLORIDE 0.9% 1,000 ML IV SCH (06:53)
[2019-05-27] MEDS ORDERED: TAMSULOSIN 0.4 MG CAP.ER.24H PO SCH (07:22)
[2019-05-27 07:47] LABS: Basophils % (A) 0 %; Eosinophils # (A) 0.1 k/uL (0-0.7); Eosinophils % (A) 3 %; HCT 39.7 % (39.0-53.0); HGB 13.2 gm/dL (13.0-17.5); Lymphocytes # (A) 0.9 k/uL (1.0-4.8); Lymphocytes % (A) 22 %; MCH 29.8 pg (25.0-35.0); MCHC 33.3 g/dL (31.0-37.0); MCV 89.5 fL (80.0-100.0); Mean Platelet Volume 7.5; Monocytes # (A) 0.2 k/uL (0-1.0); Monocytes % (A) 5 %; Neutrophils # (A) 2.7 k/uL (1.3-7.7); Neutrophils % (A) 68 %; Platelet Count 165 k/uL (150-450); RBC 4.43 m/uL (4.30-5.90)
[2019-05-27 07:50] VITALS: BP 151/81; PULSE 64; RESP 16; TEMP 98.1
[2019-05-27] MEDS ORDERED: METOPROLOL TARTRATE 50 MG TAB PO SCH (08:00)
[2019-05-27 08:01] LABS: Calcium 9.2 mg/dL (8.4-10.2); Potassium 3.7 mmol/L (3.5-5.1)
[2019-05-27] MEDS: ATORVASTATIN 80 MG TAB PO SCH (08:03)
[2019-05-27] MEDS ORDERED: amLODIPine 10 MG TAB PO SCH (09:00)
[2019-05-27] MEDS ORDERED: CLOPIDOGREL 75 MG TAB PO SCH (09:00)
[2019-05-27] MEDS ORDERED: ALLOPURINOL 100 MG TAB PO SCH (09:00)
[2019-05-27] MEDS ORDERED: ASPIRIN 81 MG PO SCH (09:00)
[2019-05-27] MEDS ORDERED: PANTOPRAZOLE 40 MG TABLET PO SCH (09:00)
[2019-05-27] MEDS ORDERED: ISOSORBIDE MONONITRATE ER 30 MG TAB.ER.24H PO SCH (09:00)
[2019-05-27] MEDS ORDERED: LISINOPRIL 20 MG TAB PO SCH (09:00)
--- NOTE | 2019-05-27 09:23 | DS ---
DISCHARGE SUMMARY DATE OF ADMISSION: 05/26/2019. DATE OF DISCHARGE: 05/27/2019. DIAGNOSES: 1. Moderate aortic stenosis. 2. Coronary artery disease with previous bypass surgery. 3. Occlusion of 3 vein grafts and patient was brought in for elective PCI off the RCA and staged intervention of circumflex. 4. Type 2 diabetes. 5. 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 PROCEDURES PERFORMED: Patient was brought in for elective PCI of RCA. Two drug-eluting stents were deployed. Excellent angiographic result was achieved. Postprocedure course was uneventful. This morning, patient's blood pressure is 140/80, pulse rate is about 68 per minute. HEENT: Unremarkable, fundus was not examined by me, neck is supple. There is no JVD. I do not hear a carotid bruit heart exam reveals S1, S2 with ejection systolic murmur. Second heart sound is preserved lungs are clear abdomen is soft, nontender. Lower right groin is clean and dry with a good pulse. EKG revealed sinus mechanism with mild IVCD. No acute changes. Laboratory data was unremarkable. Patient is asymptomatic ambulating the hallways. He will be discharged today and he will see Dr. Hicks in one week. Discharge instructions regarding activity, diet, medications, and appointment were given. MMODL / IJN: [id number] /
== END 2019-05-27 08:51 | disposition home or self-care (01) ==
LOC: CATHCVL 06:10 → 3SCARD 10:15 → CATHCVL 05-27 08:51
PROVIDERS: ATTEND Internal Medicine Interventional Cardiology
DX: I25.119 Atherosclerotic heart disease of native coronary artery with unspecified angina pectoris (principal); I25.84 Coronary atherosclerosis due to calcified coronary lesion; I25.709 Atherosclerosis of coronary artery bypass graft(s), unspecified, with unspecified angina pectoris; I25.82 Chronic total occlusion of coronary artery; Z95.1 Presence of aortocoronary bypass graft; I35.0 Nonrheumatic aortic (valve) stenosis; I25.2 Old myocardial infarction; I47.2 Ventricular tachycardia; I12.9 Hypertensive chronic kidney disease with stage 1 through stage 4 chronic kidney disease, or unspecified chronic kidney disease; E11.22 Type 2 diabetes mellitus with diabetic chronic kidney disease; N18.2 Chronic kidney disease, stage 2 (mild); E78.5 Hyperlipidemia, unspecified; E78.00 Pure hypercholesterolemia, unspecified; F17.290 Nicotine dependence, other tobacco product, uncomplicated; Z79.02 Long term (current) use of antithrombotics/antiplatelets; Z79.82 Long term (current) use of aspirin; Z79.84 Long term (current) use of oral hypoglycemic drugs; Z79.899 Other long term (current) drug therapy; Z88.6 Allergy status to analgesic agent; Z82.49 Family history of ischemic heart disease and other diseases of the circulatory system
CPT/HCPCS: 80048; 85025; C9600; C1769 ×4; C1887; C1725; C1894; C1760; C1874; J2001; J1644 ×2; J1170; J0583; Q9967; J2250

== ENCOUNTER → 2019-06-02 | Outpatient (CLI) | payer MEDICARE, OTHER ==
[2019-06-02 16:08] LABS: African American GFR (CKD) 65.4 (60.0-200.0); Anion Gap 14.1 mmol/L (4.00-12.00); BUN/Creat Ratio 16.92 Ratio (12.00-20.00); Calcium 9.8 mg/dL (8.7-10.3); Carbon Dioxide 21.9 mmol/L (21.6-31.8); Potassium 4.3 mmol/L (3.5-5.5)
== END | disposition home or self-care (01) ==
LOC: LABWHC1 09:58
PROVIDERS: ATTEND Internal Medicine Cardiovascular Disease
DX: N19 Unspecified kidney failure (principal)
CPT/HCPCS: 36415; 80048

== ENCOUNTER 2019-06-16 06:04 | Day surgery (SDC) | payer MEDICARE, OTHER ==
[2019-06-16] MEDS ORDERED: NITROGLYCERIN SL TABS 0.4 MG TAB SUBLINGUAL PRN ×3 (06:27→14:36)
[2019-06-16] MEDS ORDERED: ALPRAZolam 0.5 MG TAB PO PRN (06:27)
[2019-06-16] MEDS ORDERED: SODIUM CHLORIDE 0.9% 1,000 ML in EMPTY BAG 1 BAG IV ONE (06:27)
[2019-06-16] MEDS ORDERED: ALPRAZolam 0.25 MG TAB PO PRN (06:27)
[2019-06-16] MEDS ORDERED: ASPIRIN 325 MG TAB PO ONE (07:00)
[2019-06-16] MEDS ORDERED: ATORVASTATIN 80 MG TAB PO ONE (07:00)
[2019-06-16 07:31] LABS: Glucose,Whole Blood 111 mg/dL (75-99)
[2019-06-16] MEDS ORDERED: LIDOCAINE 1% INJ 10MG/ML (20 ML MDV) ONE (10:30)
[2019-06-16] MEDS ORDERED: MIDAZOLAM (PF) 2 MG/2 ML VIAL IV ONE (10:46)
[2019-06-16] MEDS ORDERED: LIDOCAINE 1% INJ 10MG/ML (20 ML MDV) SQ ONE (10:46)
[2019-06-16] MEDS ORDERED: IV FLUID CONTINUATION 400 ML IV ONE (10:47)
[2019-06-16] MEDS ORDERED: BIVALIRUDIN BOLUS 250 MG/50 ML IV ONE (11:01)
[2019-06-16] MEDS ORDERED: BIVALIRUDIN 250 MG in SODIUM CHLORIDE 0.9% 36.5 ML IV ONE (11:03)
[2019-06-16] MEDS ORDERED: IOPAMIDOL-370 100ML BTL INJ ONE ×2 (11:24→11:57)
[2019-06-16] MEDS: NITROGLYCERIN 1000MCG/10ML SYRINGE INTRACORON ONE ×2 (11:31→11:53)
[2019-06-16] MEDS ORDERED: BIVALIRUDIN 250 MG in SODIUM CHLORIDE 0.9% 50 ML IV ONE (11:53)
[2019-06-16] MEDS ORDERED: IOPAMIDOL-370 50ML BTL INJ ONE (11:58)
[2019-06-16] MEDS ORDERED: CLOPIDOGREL 75 MG TAB ONE (11:58)
[2019-06-16] MEDS ORDERED: CLOPIDOGREL 75 MG TAB PO ONE (12:03)
[2019-06-16] MEDS ORDERED: ZOLPIDEM 5 MG TAB PO PRN (12:04)
[2019-06-16] MEDS ORDERED: MAG HYDROX/AL HYDROX/SIMETH 30 ML CUP PO PRN (12:04)
[2019-06-16] MEDS ORDERED: RX INFO: IV CONTRAST WAS GIVEN 1 EACH MISC MISCELLANE PRN (12:04)
[2019-06-16] MEDS ORDERED: ATROPINE SULFATE 0.1 MG/ML 10ML SYRINGE IV PRN (12:04)
--- NOTE | 2019-06-16 14:48 | PTCA ---
PERCUTANEOUSTRANS CORORONARY ANGIOGRAPHY DATE OF SERVICE: 06/16/2019. PROCEDURE: 1. Selective coronary angiography of [place] right coronary artery. 2. PTCA and stenting of first obtuse marginal branch of circumflex with a drug-eluting stent. 3. PTCA and stenting of proximal and mid circumflex coronary artery with 2 drug- eluting stents. PERFORMED BY: Dr. Valery Aquino. Moderate conscious sedation time was 72 minutes. Patient was administered Versed. His oxygen saturation, hemodynamics and EKG were monitored closely. CLINICAL INFORMATION: Mr. Lester Wright is a 68-year-old gentleman, history of type 2 diabetes, hypertension, hyperlipidemia, previous aortocoronary bypass surgery. He had separate graft to the circumflex marginal and RCA and a diagonal branch. And these were all vein grafts and he had a GAYLE to LAD. Because of symptoms of angina and abnormal stress test and ventricular ectopy, Dr. Hicks performed a cardiac cath sometime in late April and cardiac cath revealed that all vein grafts were occluded, but GAYLE was patent. I performed stenting of the [place] RCA with 2 long drug-eluting stents on 05/26/2019 and brought him back for a [place] circumflex intervention today. Rationale, risks, benefits, options were explained. Patient's creatinine was elevated. He was hydrated both orally and intravenously. PROCEDURE NOTE: Under local anesthesia and strict aseptic precautions, a 6-Nepali introducer was placed in the right femoral artery. I used a standard JL-4 guide catheter to cannulate the left coronary artery. Correction was I used a standard right Shira type diagnostic catheter to cannulate the right coronary artery and performed selective coronary angiography. I noted that the RCA that was stented was widely patent. Distally, there was a 40% lesion which was unchanged. The stented segments were widely patent with good flow. I then turned my attention to the circumflex coronary artery. A JL4 guide catheter was used to cannulate the circumflex coronary artery. A run-through wire was used to cross the lesion in the proximal circumflex and mid circumflex. The wire was kept in the distal posterolateral branch. I then used a Whisper wire with a very steep curve and this was a whisper with a J-tip and a steep curve proximal to the J-tip, with this I was able to cross into the tight lesion of the circumflex marginal and wire was kept distally. I performed a PTCA of the proximal circumflex and proximal portion of the obtuse marginal with a 15 mm long 2.5 NC Trek balloon at 12 atmospheres. A decent result was achieved. I then stented the first obtuse marginal branch of circumflex with a 3.0 caliber 8 mm long Xience stent and the proximal end of the stent was placed just at the ostium of the circumflex marginal. Excellent angiographic result was achieved. I noted that there was a compromise in the mid circumflex just after the obtuse marginal. This was addressed with a 3.0 caliber 8 mm Trek balloon with which I gave 8 mm correction with a with which I gave 8 atmosphere at inflation. I then used a 2.5 caliber 12 mm long Xience stent and deployed this in the mid circumflex where there was a 90% lesion with excellent angiographic result. Subsequently, I used a 3.0 caliber 8 mm Xience stent and deployed this in the proximal lesion just before the origin of the obtuse marginal and the stent was just before the circumflex marginal stent. There was no compromise of the continuation of circumflex. Excellent angiographic result was achieved. Patient did not have much chest discomfort and also had mild EKG changes. Excellent angiographic result was achieved. There were therefore 3 drug-eluting stents 1 in the proximal circumflex of 3.0 caliber 8 mm length, one in the first obtuse marginal at its ostium extending into the circumflex marginal which was also 3.0 caliber 8 mm stent. Mid circumflex was stented with a 2.5 caliber 12 mm Xience stent. Patient received Angiomax bolus and infusion. He was already on Plavix. He received additional 150 mg of Plavix orally today. Excellent angiographic result without complication was achieved. The sheath was taken out and Angio-Seal device used to secure hemostasis and he was sent to the room in a stable condition. MMODL / IJN: [id number] /
[2019-06-16 14:55] VITALS: BMI 31.1
[2019-06-16] MEDS: SODIUM CHLORIDE 0.9% 1,000 ML IV SCH ×3 (15:05→17:26)
[2019-06-16] MEDS: METOPROLOL TARTRATE 25 MG TAB PO SCH (20:02)
[2019-06-16] MEDS: POTASSIUM CHLORIDE ER 20 MEQ TAB.ER PO SCH (20:02)
[2019-06-16] MEDS: TAMSULOSIN 0.4 MG CAP.ER.24H PO SCH (20:02)
[2019-06-16 20:50] LABS: Glucose,Whole Blood 98 mg/dL (75-99)
[2019-06-17 00:05] VITALS: TEMP 97.8
[2019-06-17 06:08] LABS: Glucose,Whole Blood 109 mg/dL (75-99)
[2019-06-17] MEDS: SODIUM CHLORIDE 0.9% 1,000 ML IV SCH ×2 (06:35→08:27)
[2019-06-17 07:18] LABS: Calcium 8.9 mg/dL (8.4-10.2); Potassium 3.3 mmol/L (3.5-5.1)
[2019-06-17] MEDS ORDERED: POTASSIUM CHLORIDE ER 20 MEQ TAB.ER PO STA (07:42)
[2019-06-17 07:56] VITALS: BP 147/92; PULSE 65; RESP 20
[2019-06-17] MEDS: TAMSULOSIN 0.4 MG CAP.ER.24H PO SCH (07:56)
[2019-06-17] MEDS: METOPROLOL TARTRATE 25 MG TAB PO SCH (07:56)
[2019-06-17] MEDS: POTASSIUM CHLORIDE ER 20 MEQ TAB.ER PO SCH (07:57)
[2019-06-17 08:22] LABS: Basophils % (A) 1 %; Eosinophils # (A) 0.2 k/uL (0-0.7); Eosinophils % (A) 4 %; HCT 34.6 % (39.0-53.0); HGB 11.9 gm/dL (13.0-17.5); Lymphocytes # (A) 0.7 k/uL (1.0-4.8); Lymphocytes % (A) 15 %; MCH 30.2 pg (25.0-35.0); MCHC 34.5 g/dL (31.0-37.0); MCV 87.6 fL (80.0-100.0); Monocytes # (A) 0.3 k/uL (0-1.0); Monocytes % (A) 7 %; Neutrophils % (A) 71 %; Platelet Count 187 k/uL (150-450); RBC 3.95 m/uL (4.30-5.90); RDW 15.7 % (11.5-15.5); WBC 4.3 k/uL (3.8-10.6)
[2019-06-17] MEDS ORDERED: ALLOPURINOL 100 MG TAB PO SCH (09:00)
[2019-06-17] MEDS ORDERED: ISOSORBIDE MONONITRATE ER 30 MG TAB.ER.24H PO SCH (09:00)
[2019-06-17] MEDS ORDERED: amLODIPine 10 MG TAB PO SCH (09:00)
[2019-06-17] MEDS ORDERED: LISINOPRIL 20 MG TAB PO SCH (09:00)
[2019-06-17] MEDS ORDERED: CLOPIDOGREL 75 MG TAB PO SCH (09:00)
[2019-06-17] MEDS ORDERED: ATORVASTATIN 80 MG TAB PO SCH (09:00)
[2019-06-17] MEDS ORDERED: PANTOPRAZOLE 40 MG TABLET PO SCH (09:00)
[2019-06-17] MEDS ORDERED: ASPIRIN 81 MG PO SCH (09:00)
--- NOTE | 2019-06-17 12:31 | DS ---
DISCHARGE SUMMARY DATE OF ADMISSION: 06/16/2019 DATE OF DISCHARGE: 06/17/2019. DIAGNOSES: 1. CAD with previous history of prior bypass surgery and multivessel PCI. 2. Patient also has history of type 2 diabetes mellitus, hypertension, and hyperlipidemia. PROCEDURES PERFORMED: PTCA and stenting of a complex bifurcation lesion involving the circumflex marginal and main circumflex in the proximal and distal portion with 3 drug-eluting stents. Mr. Wright is a 68-year-old gentleman with a history of type 2 diabetes, hypertension, hyperlipidemia, previous bypass surgery. All his vein grafts are occluded. About 3 weeks ago I performed stenting of the wales RCA and brought him here electively yesterday for a PCI of circumflex. Circumflex was a very complex lesion. The first obtuse marginal was a good-sized vessel. There was ostial lesion. There was also lesion in the mid and proximal circumflex. All these 3 were addressed with drug-eluting stents. I used 2 separate wires, but I did not perform bifurcation stenting. Excellent angiographic result was achieved. The patient's postprocedure course was uneventful. His creatinine today is 1.02. Potassium is low at 3.3. This is being supplemented. Patient is asymptomatic. His right groin is clean and dry with a good pulse. Blood pressure today is 140/70, pulse rate is 65 per minute. EKG revealed sinus mechanism of the right bundle, unchanged from before. No acute changes. S1, S2 heard normally. Short ejection systolic murmur is audible at the base. Lungs are clear. Abdomen and lower exam unchanged and unchanged. Right groin is clean and dry. RECOMMENDATIONS: Patient will be discharged today and he will see me on June 21 at 3 p.m. and will then follow up with Dr. Hicks. He is also advised to follow with his primary care physician Alvaro Arias. Patient will be discharged today. MMODL / IJN: [id number] /
== END 2019-06-17 08:46 | disposition home or self-care (01) ==
LOC: CATHCVL 06:04 → 3SCARD 11:55 → CATHCVL 06-17 08:46
PROVIDERS: ATTEND Internal Medicine Interventional Cardiology
DX: I25.10 Atherosclerotic heart disease of native coronary artery without angina pectoris (principal); I25.810 Atherosclerosis of coronary artery bypass graft(s) without angina pectoris; I10 Essential (primary) hypertension; Z72.0 Tobacco use; Z95.1 Presence of aortocoronary bypass graft; I35.0 Nonrheumatic aortic (valve) stenosis; I47.2 Ventricular tachycardia; Z95.5 Presence of coronary angioplasty implant and graft; E78.5 Hyperlipidemia, unspecified; I25.2 Old myocardial infarction; E78.00 Pure hypercholesterolemia, unspecified; E11.9 Type 2 diabetes mellitus without complications; Z82.49 Family history of ischemic heart disease and other diseases of the circulatory system; Z79.84 Long term (current) use of oral hypoglycemic drugs; Z79.02 Long term (current) use of antithrombotics/antiplatelets; Z79.82 Long term (current) use of aspirin; Z79.899 Other long term (current) drug therapy; Z88.6 Allergy status to analgesic agent
CPT/HCPCS: 80048; 85025; C9600; C9601; C1760; C1769 ×5; C1887 ×2; C1725 ×2; C1894; C1874; J2001; J0583; Q9967 ×2; J2250

== ENCOUNTER → 2019-07-12 | Outpatient (CLI) | payer MEDICARE, OTHER ==
[2019-07-12 17:45] LABS: African American GFR (CKD) 65.4 (60.0-200.0); Anion Gap 14.5 mmol/L (4.00-12.00); BUN/Creat Ratio 13.85 Ratio (12.00-20.00); Calcium 9.2 mg/dL (8.7-10.3); Carbon Dioxide 24.5 mmol/L (21.6-31.8); Potassium 3.2 mmol/L (3.5-5.5)
== END | disposition home or self-care (01) ==
LOC: LABWHC1 11:16
PROVIDERS: ATTEND Internal Medicine Cardiovascular Disease
DX: I10 Essential (primary) hypertension (principal); E87.6 Hypokalemia
CPT/HCPCS: 36415; 80048

== ENCOUNTER 2019-08-03 07:18 | Emergency (ER) | payer MEDICARE, OTHER ==
[2019-08-03 07:28] VITALS: BP 145/77; PULSE 61; RESP 18; TEMP 98
[2019-08-03] MEDS ORDERED: DIPH,PERTUS(ACELL)TETVAC-LF 0.5 ML VIAL IM ONE (07:40)
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
--- NOTE | 2019-08-03 08:07 | XR ---
EXAMINATION TYPE: XR forearm RT DATE OF EXAM: 08/03/2019 COMPARISON: None HISTORY: Pain, entire follow-up unenhanced TECHNIQUE: 1 view right forearm FINDINGS: There is a oblique fracture of the proximal diaphyseal ulna. Prominent soft tissue swelling is over the proximal forearm. Old fracture of the ulnar styloid is evident nonunion. Multiple surgical clips are present within th e anterior forearm. IMPRESSION: 1. Nondisplaced proximal diaphyseal ulnar forearm. 2. Soft tissue swelling proximal forearm
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
== END 2019-08-03 08:47 | disposition home or self-care (01) ==
LOC: EC 07:18
DX: S52.001A Unspecified fracture of upper end of right ulna, initial encounter for closed fracture (principal); S10.91XA Abrasion of unspecified part of neck, initial encounter; S60.511A Abrasion of right hand, initial encounter; I25.10 Atherosclerotic heart disease of native coronary artery without angina pectoris; K21.9 Gastro-esophageal reflux disease without esophagitis; E78.5 Hyperlipidemia, unspecified; I10 Essential (primary) hypertension; I25.2 Old myocardial infarction; M46.90 Unspecified inflammatory spondylopathy, site unspecified; Z87.891 Personal history of nicotine dependence; Z88.6 Allergy status to analgesic agent; Z79.899 Other long term (current) drug therapy; Z95.1 Presence of aortocoronary bypass graft; Z96.643 Presence of artificial hip joint, bilateral; Z98.890 Other specified postprocedural states; Z23 Encounter for immunization; X50.1XXA Overexertion from prolonged static or awkward postures, initial encounter; W18.39XA Other fall on same level, initial encounter; Y93.89 Activity, other specified
CPT/HCPCS: 29105; 90471; 90715; 99284

== ENCOUNTER 2019-08-26 12:29 | Day surgery (SDC) | payer MEDICARE, OTHER ==
[2019-08-24 15:57] VITALS: BMI 32.1
[~2019-08-26 12:29] MED LIST changes: +DEXAMETHASONE SOD PHOSPHATE 10 MG/ML 1 ML VIAL IV ONE; +HYDROmorphone 0.5 MG/0.5 ML SYRINGE IVP PRN; +LIDOCAINE 1% 20 ML VIAL (10MG/ML) FOR IV START INTRADERMA PRN; +MIDAZOLAM 2 MG/2 ML VIAL IV PRN; +ONDANSETRON 4 MG/2 ML VIAL IVP ONE; +SCOPOLAMINE 1.5MG/72HR PATCH TRANSDERM ONE
[2019-08-26 13:35] LABS: Glucose,Whole Blood 97 mg/dL (75-99)
[2019-08-26] MEDS ORDERED: fentaNYL (PF) 50 MCG/ML 2 ML AMP IV ONE ×2 (14:16)
--- NOTE | 2019-08-26 14:52 | P.ANPRN ---
Procedure Note - Anesthesia - Nerve Block Performed Right Axillary Single Time Out Performed: Yes (1415) Date of Procedure: 08/26/19 Procedure Start Time: 14:15 Procedure Stop Time: 14:20 Location of Patient Procedure: PreOp Indication: Acute Post-Operative Pain, Dx/Pain Location, Requested by Surgeon Sedation Type: Sedate with meaningful contact maintained Position: Supine Needle Types: Pajunk Needle Gauge: 21 Ultrasound used to visualize needle placement: Yes Ultrasound used to observe medication spread: Yes Injectate: 0.5% Ropivacaine (see comment for volume) (20ml) Blood Aspirated: No Pain Paresthesia on Injection Noted: No Resistance on Injection: Normal Image Stored and Saved: Yes Events: Uneventful and Well Tolerated
[2019-08-26] MEDS ORDERED: fentaNYL (PF) 50 MCG/ML 2 ML AMP ONE (15:36)
[2019-08-26] MEDS ORDERED: PROPOFOL 10 MG/ML 20 ML VIAL IV ONE (15:36)
[2019-08-26] MEDS ORDERED: LIDOCAINE 1% INJ 10MG/ML (20 ML MDV) ONE (15:36)
[2019-08-26] MEDS ORDERED: MIDAZOLAM 2 MG/2 ML VIAL ONE (15:36)
[2019-08-26] MEDS ORDERED: ROPIVACAINE 5 MG/ML 30 ML VIAL ONE (15:36)
[2019-08-26] MEDS ORDERED: LACTATED RINGERS 1,000 ML IV ONE (16:00)
[2019-08-26] MEDS ORDERED: ceFAZolin 1,000 MG in SODIUM CHLORIDE 0.9% 1,000 ML IRRIGATION ONE (16:11)
--- NOTE | 2019-08-26 17:04 | P.OP ---
Date of Procedure: 08/26/19 Procedure(s) Performed: PREOPERATIVE DIAGNOSES: 1. Right Ulnar shaft fracture, acute POSTOPERATIVE DIAGNOSES: 1. Right Ulnar shaft fracture, acute PROCEDURES PERFORMED: 1. Right Ulnar shaft fracture open reduction and internal fixation ANESTHESIA: Gen. ELECTRIC SCREW DRIVER OPERATOR: Rosa Lopez PA-C (assistance with: Patient positioning, retraction, exposure, fixation, hemostasis, closure, dressing, splint) COMPLICATIONS: None ESTIMATED BLOOD LOSS: 50 mL. DISPOSITION: To post-anesthesia care unit INDICATIONS: Mr. Wright is a 68-year-old male with a angulated and displaced fracture of the right ulnar shaft. The fracture has angulated during conservative management with a cast and now is in approximately 15 of angulation. I have advised open reduction and internal fixation. I have explained the risks and potential complications of this surgery as being inclusive of but not limited to bleeding, infection, scarring, discomfort, blood vessel and/or nerve damage, malunion, nonunion, stiffness, hardware irritation, deformity, rotational abnormality, need for further surgery, and other risks. We have extensively discussed the risk of stiffness of the elbow joint, which is something that commonly occurs with these kinds of injuries. We have discussed the need for extended rehabilitation and occupational therapy to regain motion and strength. The consent form has been signed. PROCEDURE: After appropriate consent was obtained, the patient was taken to the operating room placed in the supine position. Anesthesia was initiated, and after confirmation of adequate anesthesia, the patient was carefully positioned. Care was taken to make sure that all pressure points were adequately padded. Prepping and draping were completed in the usual aseptic fashion using ChloraPrep. Timeout was called, confirming patient identity, side, procedure, and administration of antibiotics. The limb was exsanguinated with an Esmarch bandage and the tourniquet was inflated to 250 mmHg. Incision was created over the ulnar aspect of the forearm in line with the ulnar shaft. Incision was centered over the fracture site. Total length of incision was approximately 6 inches. Incision was carried down through skin into subcu tissues and then to muscular fascia. The raphae between the extensor and flexor structures was developed. Self-retaining retractor was applied. The fracture site was then exposed with subperiosteal dissection, removing organizing callus as necessary. Bone quality was judged as mildly osteopenic. A sparse amount of new bone formation was noted around the fracture site which was removed on the ulnar side side to create a flat surface for application of the plate. The interior of the fracture site was exposed and organizing soft tissue in this region was removed. The continuity of the intramedullary canal was reestablished using a small drill bit. Subsequent, the fracture was reduced anatomically. Provisional pin fixation was performed. A 3.5 mm DCP plate was used on the ulnar side and clamped into position over the fracture site. A slight bend was placed in the plate to allow for proper compression technique. Screws were filled first proximally using nonlocking 3.5 mm cortical screws. Then compression technique was used on the more distal screws. Good compression was noted at the fracture site. C-arm imaging was then used to confirm proper plate placement, reduction, and screw lengths. These parameters were judged to be satisfactory. All screws were away from the radiocapitellar joint and away from the radius. Irrigation was performed using normal saline and hemostasis was obtained using electrocautery after tourniquet deflation. Some of the good quality previous bone that was removed on exposure of the fracture site was reapplied at the fracture site.] Closure was performed of the deep fascia using 0 Vicryl suture, followed by 2-0 Vicryl suture in the subcu tissues and 3-0 strata fix suture for the skin. Dermabond adhesive was then applied (Exofin). A soft dressing with compressive Madhu wrap was placed. Neurovascular status was satisfactory. Patient tolerated the procedure well and taken to recovery room in stable condition.
[2019-08-26 17:38] VITALS: TEMP 97.2
[2019-08-26 17:47] VITALS: RESP 16
[2019-08-26 18:51] VITALS: BP 170/82; PULSE 58
--- NOTE | 2019-08-27 15:13 | FL ---
EXAMINATION TYPE: FL guidance operating room, XR forearm RT DATE OF EXAM: 08/26/2019 CLINICAL HISTORY: Open reduction internal fixation of a right ulnar fracture TECHNIQUE: Fluoroscopy. COMPARISON: None. FINDINGS: Fluoroscopic guidance was provided during pain relief procedure performed by Dr. Verduzco. A total of 2 seconds of fluoroscopic time was utilized during the procedure and two spot images are ac quired. Images acquired shows open reduction internal fixation of a right ulnar fracture. IMPRESSION: As Above.
--- NOTE | 2019-08-29 14:40 | CDI ---
Outpatient Documentation Clarification Form Date: 08/29/19 CDS/Swiss Type Screw Machine Operator name: Raven Casey Patient Name: Lester Wright Admit Date: 08/26/19 Discharge Date: 08/26/19 ATTENTION: The [facility] Coding Staff appreciate your assistance in clarifying documentation. Please respond to the clarification below the line and electronically sign. The [facility] Coding Staff will review the response and follow- up if needed. Please Note: Queries are made part of the Legal Health Record. If you have any questions, please contact the Residential Director. Dear Dr Verduzco, Please provide clarification of the laterality of the procedure. There is not laterality mentioned on the Operative report. Please clarify. Thank you for you kind consideration. MTDD
== END 2019-08-26 18:59 | disposition home or self-care (01) ==
LOC: OR 12:29
PROVIDERS: ATTEND Orthopaedic Surgery
DX: S52.201K Unspecified fracture of shaft of right ulna, subsequent encounter for closed fracture with nonunion (principal); I10 Essential (primary) hypertension; E78.5 Hyperlipidemia, unspecified; E11.9 Type 2 diabetes mellitus without complications; Z87.891 Personal history of nicotine dependence; I25.10 Atherosclerotic heart disease of native coronary artery without angina pectoris; I35.0 Nonrheumatic aortic (valve) stenosis; I25.2 Old myocardial infarction; Z98.890 Other specified postprocedural states
CPT/HCPCS: 25545; 64415; 76942; 84132; 73090; C1713; J2250; J1100; J0690 ×2; J2405; J2001; J3010; J2795; J2704

== ENCOUNTER → 2019-12-15 | Outpatient (CLI) | payer MEDICARE, OTHER ==
--- NOTE | 2019-12-15 15:09 | CT ---
EXAMINATION TYPE: CT abdomen w con DATE OF EXAM: 12/15/2019 COMPARISON: Ultrasound abdomen 11/18/2018 HISTORY: Elevated liver enzymes. CT DLP: 1216 mGycm Automated exposure control for dose reduction was used. TECHNIQUE: Helical acquisition of images was performed from the lung bases through the top of iliac crest to include entire abdomen. CONTRAST: Performed with Oral Contrast and with IV Contrast, patient injected with 80 mL of Isovue M300. FINDINGS: LUNG BASES: The lung bases demonstrate linear subsegmental changes suggestive of atelectasis. Sternot kunal clips are suggested correlate for previous surgery coronary artery calcification suggested LIVER/GB: No gallstones. Liver is reduced in attenuation mild. There are 2 tiny hypodensities noted w ithin the liver both measuring less than 5 mm too small to characterize. PANCREAS: No significant abnormality is seen. SPLEEN: No significant abnormality is seen. ADRENALS: Atrophy of the left adrenal gland. KIDNEYS: There are 2 hypodensities within the lower pole the left kidney the largest measuring 1.4 cm and 5 Hounsfield units compatible with simple cyst with no hydronephrosis. Tiny hypodensity along th e lateral margin of the right mid to upper pole posteriorly is too small to characterize but also lik brittany statistically a renal simple cyst. BOWEL: No significant abnormality is seen. LYMPH NODES: No significant abnormality is seen. OSSEOUS STRUCTURES: Hypertrophic and degenerative changes of the spine are noted. Multilevel facet a rthropathy noted. Canal stenosis at the lower lumbar spine is suggested. OTHER: Visualized aorta of normal caliber with atherosclerotic changes. There is a small hiatal herni a. No free fluid IMPRESSION: 1. Mild reduced attenuation of liver can be associated with mild hepatic steatosis. Correlate to excl ude hepatocellular disease or hepatitis with LFTs. There are 2 tiny hypodensities measuring less than 5 mm within the liver which are too small to characterize. 2. Simple left renal cyst.
== END | disposition home or self-care (01) ==
LOC: RADCTMAIN 13:26
PROVIDERS: ATTEND Family Medicine
DX: K76.0 Fatty (change of) liver, not elsewhere classified (principal); N28.1 Cyst of kidney, acquired; K76.89 Other specified diseases of liver
CPT/HCPCS: 82565; 84520; 74160; 36415; Q9967 ×2

== ENCOUNTER 2020-12-19 06:01 | Inpatient (IN) | payer MEDICARE, OTHER ==
[2020-12-19] MEDS ORDERED: ALBUTEROL NEB (CONC) 2.5 MG/0.5 ML INHALATION STA (06:23)
[2020-12-19] MEDS ORDERED: IPRATROPIUM-ALBUTEROL 3 ML NEB INHALATION STA (06:23)
[2020-12-19 06:45] LABS: Basophils % (A) 0 %; Eosinophils # (A) 0.1 k/uL (0-0.7); Eosinophils % (A) 2 %; HCT 36.5 % (39.0-53.0); HGB 11.9 gm/dL (13.0-17.5); Lymphocytes # (A) 0.4 k/uL (1.0-4.8); Lymphocytes % (A) 7 %; MCH 27.8 pg (25.0-35.0); MCHC 32.5 g/dL (31.0-37.0); MCV 85.4 fL (80.0-100.0); Mean Platelet Volume 7.2; Monocytes # (A) 0.3 k/uL (0-1.0); Monocytes % (A) 5 %; Neutrophils # (A) 5.2 k/uL (1.3-7.7); Neutrophils % (A) 84 %; Platelet Count 196 k/uL (150-450); RBC 4.28 m/uL (4.30-5.90); RDW 15.8 % (11.5-15.5); WBC 6.1 k/uL (3.8-10.6)
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
[2020-12-19 06:59] LABS: Albumin 4.4 g/dL (3.5-5.0); Calcium 9.6 mg/dL (8.4-10.2); Magnesium 1.2 mg/dL (1.6-2.3); Potassium 3.5 mmol/L (3.5-5.1); Total Protein 7.4 g/dL (6.3-8.2)
[2020-12-19 07:03] LABS: INR 1.1 (<1.2); Prothrombin Time 11.1 sec (9.0-12.0)
--- NOTE | 2020-12-19 07:10 | XR ---
EXAM: XR Chest, 2 Views CLINICAL HISTORY: ITS.REASON XR Reason: difficulty breathing TECHNIQUE: Frontal and lateral views of the chest. COMPARISON: 02/09/17 FINDINGS: Artifacts: Lateral view suboptimal due to motion artifact Lungs: Increased central markings. Low lung volume. Pleural space: Blunting of the costophrenic sulci bilaterally. No pneumothorax. Heart: Cardiovascular silhouette appears mildly enlarged which may partly reflect low lung volume and lordotic position. Mild cardiomegaly difficult to exclude. Mediastinum: Tortuous calcified thoracic aorta. Bones/joints: Status post median sternotomy. Degenerative changes in the spine. Other findings: Mild increased central markings. IMPRESSION: 1. Mild cardiomegaly. 2. Mild vascular congestion/edema. 3. Small bilateral pleural effusions suspected
[2020-12-19] MEDS ORDERED: FUROSEMIDE 10 MG/ML 4 ML VIAL IV STA (07:13)
[2020-12-19] MEDS ORDERED: Magnesium Replacement Protocol 1 EACH MISC MISCELLANE PRN (07:14)
[2020-12-19 07:23] LABS: Partial Thromboplastin Time 19.6 sec (22.0-30.0)
[2020-12-19] MEDS ORDERED: NALOXONE 0.4 MG/ML 1 ML VIAL IV PRN (07:23)
[2020-12-19] MEDS ORDERED: HEPARIN SODIUM,PORCINE 5,000 UNIT/ML 1 ML VIAL IV ONE (07:47)
[2020-12-19] MEDS ORDERED: HEPARIN SODIUM,PORCINE 5,000 UNIT/ML 1 ML VIAL IV PRN (07:47)
[2020-12-19] MEDS: MAGNESIUM SULFATE-D5W PMX 1 GM in DEXTROSE/WATER 1 100ML.BAG IVPB SCH ×3 (08:03→10:19)
[2020-12-19] MEDS: HEPARIN SOD,PORK IN 0.45% NACL 25,000 UNIT in 0.45% NACL 1 250ML.BAG IV SCH (08:14)
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
[2020-12-19] MEDS: allopurinoL 100 MG TAB PO SCH (09:16)
[2020-12-19] MEDS: ASPIRIN 81 MG PO SCH (09:18)
[2020-12-19] MEDS: CHOLECALCIFEROL 25 MCG (1000 IU) TABLET PO SCH (09:18)
[2020-12-19] MEDS: POTASSIUM CHLORIDE ER 20 MEQ TAB.ER PO SCH ×2 (09:23→21:03)
[2020-12-19] MEDS: ISOSORBIDE MONONITRATE ER 30 MG TAB.ER.24H PO SCH (09:23)
[2020-12-19] MEDS: PANTOPRAZOLE 40 MG TABLET PO SCH (09:23)
[2020-12-19] MEDS: ATORVASTATIN 80 MG TAB PO SCH (09:23)
[2020-12-19] MEDS: CLOPIDOGREL 75 MG TAB PO SCH (09:23)
[2020-12-19] MEDS: amLODIPine 10 MG TAB PO SCH (09:23)
[2020-12-19] MEDS: lisinopriL 20 MG TAB PO SCH (09:24)
[2020-12-19] MEDS: TAMSULOSIN 0.4 MG CAP.ER.24H PO SCH ×2 (09:24→21:03)
[2020-12-19] MEDS: METOPROLOL TARTRATE 25 MG TAB PO SCH ×2 (09:24→21:03)
[2020-12-19 12:12] LABS: Glucose,Whole Blood 115 mg/dL (75-99)
[2020-12-19] MEDS: INSULIN ASPART (NovoLOG) 100 UNIT/ML VIAL SQ SCH ×3 (12:23→19:48)
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
[2020-12-19 17:32] LABS: Glucose,Whole Blood 138 mg/dL (75-99)
[2020-12-19 19:49] LABS: Glucose,Whole Blood 119 mg/dL (75-99)
--- NOTE | 2020-12-19 20:00 | ECHOF ---
Referral Reason:CHF MEASUREMENTS -------- HEIGHT: 170.2 cm WEIGHT: 93.0 kg BP: IVSd: 1.2 cm (0.6 - 1.1) LVIDd: 5.9 cm (3.9 - 5.3) LVPWd: 1.2 cm (0.6 - 1.1) IVSs: 1.3 cm LVIDs: 5.5 cm LVPWs: 1.1 cm Ao Diam: 2.7 cm (2.0 - 3.7) AV Cusp: 0.8 cm (1.5 - 2.6) LA Diam: 4.1 cm (2.7 - 3.8) MV EXCURSION: 14.577 mm (> 18.000) MV EF SLOPE: 29 mm/s (70 - 150) EPSS: 2.4 cm MV E Young: 1.21 m/s MV DecT: 152 ms MV A Young: 0.21 m/s MV E/A Ratio: 5.90 AV maxP.10 mmHg AV meanP.78 mmHg RAP: 5.00 mmHg RVSP: 28.84 mmHg FINDINGS -------- Sinus rhythm. This was a technically difficult study with suboptimal views. The left ventricular size is normal. There is mild concentric left ventricular hypertrophy. Overa ll left ventricular systolic function is severely impaired with, an EF between 20 - 25 %. Basal inf erior LV wall motion is akinetic. Basal inferoseptal LV wall motion is akinetic. Mid inferior L V wall motion is akinetic. Mid inferoseptal LV wall motion is akinetic. Apical inferior LV wall motion is akinetic. The right ventricle is normal in size. The left atrium is mildly dilated. The right atrial size is normal. Lumason used There is moderate to severe aortic valve sclerosis. There is mild aortic stenosis present. Peak/m marco gradient across the Aortic Valve is 28.10mmHg / 14.78mmHg. Mild mitral annular calcification present. Mild mitral regurgitation is present. The tricuspid valve appears structurally normal. Mild tricuspid regurgitation present. Right vent ricular systolic pressure is normal at < 35 mmHg. Moderate pulmonic regurgitation. The aortic root size is normal. IVC Not well visulized. There is no pericardial effusion. CONCLUSIONS -------- 1. This was a technically difficult study with suboptimal views. 2. There is mild concentric left ventricular hypertrophy. 3. Overall left ventricular systolic function is severely impaired with, an EF between 20 - 25 %. 4. Basal inferior LV wall motion is akinetic. 5. Basal inferoseptal LV wall motion is akinetic. 6. Mid inferior LV wall motion is akinetic. 7. Mid inferoseptal LV wall motion is akinetic. 8. Apical inferior LV wall motion is akinetic. 9. The left atrium is mildly dilated. 10. There is moderate to severe aortic valve sclerosis. 11. There is mild aortic stenosis present. 12. Peak/mean gradient across the Aortic Valve is 28.10mmHg / 14.78mmHg. 13. Mild mitral annular calcification present. 14. Mild mitral regurgitation is present. 15. Mild tricuspid regurgitation present. 16. Moderate pulmonic regurgitation. 17. There is no pericardial effusion. SURGICAL INSTRUMENT MAKER: Richelle Rutledge RDCS
[2020-12-19] MEDS: FUROSEMIDE 10 MG/ML 4 ML VIAL IV SCH (21:03)
[2020-12-19] MEDS: ALBUTEROL NEBULIZED 2.5 MG/3 ML INHALATION PRN (23:04)
[2020-12-20 05:21] LABS: Basophils % (A) 0 %; Eosinophils # (A) 0.1 k/uL (0-0.7); Eosinophils % (A) 3 %; HCT 34.4 % (39.0-53.0); HGB 11.5 gm/dL (13.0-17.5); Lymphocytes # (A) 0.6 k/uL (1.0-4.8); Lymphocytes % (A) 12 %; MCH 28.2 pg (25.0-35.0); MCHC 33.4 g/dL (31.0-37.0); MCV 84.6 fL (80.0-100.0); Mean Platelet Volume 7.5; Monocytes # (A) 0.3 k/uL (0-1.0); Monocytes % (A) 6 %; Neutrophils # (A) 3.9 k/uL (1.3-7.7); Neutrophils % (A) 78 %; Platelet Count 186 k/uL (150-450); RBC 4.07 m/uL (4.30-5.90); RDW 15.9 % (11.5-15.5)
[2020-12-20 05:53] LABS: Calcium 9.4 mg/dL (8.4-10.2); Magnesium 1.9 mg/dL (1.6-2.3)
[2020-12-20] MEDS: HEPARIN SOD,PORK IN 0.45% NACL 25,000 UNIT in 0.45% NACL 1 250ML.BAG IV SCH ×2 (05:59→11:04)
[2020-12-20 06:17] LABS: Glucose,Whole Blood 138 mg/dL (75-99)
[2020-12-20] MEDS: PANTOPRAZOLE 40 MG TABLET PO SCH (06:25)
[2020-12-20] MEDS: INSULIN ASPART (NovoLOG) 100 UNIT/ML VIAL SQ SCH ×4 (06:25→20:30)
[2020-12-20] MEDS: ALBUTEROL NEBULIZED 2.5 MG/3 ML INHALATION PRN ×4 (07:50→20:18)
[2020-12-20] MEDS: allopurinoL 100 MG TAB PO SCH (09:20)
[2020-12-20] MEDS: ISOSORBIDE MONONITRATE ER 30 MG TAB.ER.24H PO SCH (09:20)
[2020-12-20] MEDS: lisinopriL 20 MG TAB PO SCH (09:20)
[2020-12-20] MEDS: METOPROLOL TARTRATE 25 MG TAB PO SCH ×2 (09:20→18:31)
[2020-12-20] MEDS: TAMSULOSIN 0.4 MG CAP.ER.24H PO SCH ×2 (09:20→20:30)
[2020-12-20] MEDS: amLODIPine 10 MG TAB PO SCH (09:20)
[2020-12-20] MEDS: CHOLECALCIFEROL 25 MCG (1000 IU) TABLET PO SCH (09:20)
[2020-12-20] MEDS: ASPIRIN 81 MG PO SCH (09:21)
[2020-12-20] MEDS: ATORVASTATIN 80 MG TAB PO SCH (09:21)
[2020-12-20] MEDS: CLOPIDOGREL 75 MG TAB PO SCH (09:21)
[2020-12-20] MEDS: FUROSEMIDE 10 MG/ML 4 ML VIAL IV SCH (09:21)
[2020-12-20] MEDS: POTASSIUM CHLORIDE ER 20 MEQ TAB.ER PO SCH (09:21)
--- NOTE | 2020-12-20 09:43 | P.PN ---
Subjective Progress Note Date: 12/20/20 Patient was up in the chair when I saw him this morning. Shortness of breath is improving. He is not diuresing as much as we would like to. Nursing staff informed me that is and os are accurate in the computer. Objective - Vital Signs Vital signs: Vital Signs Temp 97.8 F 12/20/20 08:00 Pulse 78 12/20/20 08:03 Resp 16 12/20/20 08:00 BP 147/82 12/20/20 08:00 Pulse Ox 95 12/20/20 09:34 Intake & Output 12/19/20 12/20/20 12/20/20 18:59 06:59 18:59 Intake Total 222 234.123 Output Total 850 Balance 222 -615.877 Weight 92.986 kg 92.2 kg Intake: Intake, IV Titration 234.123 Amount Heparin Sod,Pork in 0.45% 234.123 NaCl 25,000 unit In 0.45 % NaCl 1 250ml.bag @ 10. 754 UNITS/KG/HR 10 mls/hr IV .Q24H [facility] Rx#: [id number] Oral 222 Output: Urine 850 Other: Voiding Method Toilet Toilet Urinal Urinal # Voids 2 - Exam General: The patient is awake and alert, in no distress Eye: there is normal conjunctiva bilaterally. Neck: The neck is supple, there is no JVD. Cardiovascular: Normal S1-S2, no S3-S4, no murmurs. Respiratory: Lungs with scattered crackles Gastrointestinal: Abdomen is soft, nontender Musculoskeletal: There is +2 pedal edema. Neurological:. Speech is normal. Skin: Skin is warm and dry - Labs CBC & Chem 7: 12/20/20 04:51 12/20/20 04:51 Labs: Abnormal Lab Results - Last 24 Hours (Table) 12/19/20 12/19/20 12/19/20 Range/Units 09:01 12:09 12:11 RBC (4.30-5.90) m/uL Hgb (13.0-17.5) gm/dL Hct (39.0-53.0) % RDW (11.5-15.5) % Lymphocytes # (1.0-4.8) k/uL APTT (22.0-30.0) sec Carbon Dioxide (22-30) mmol/L BUN (9-20) mg/dL Creatinine (0.66-1.25) mg/dL Glucose (74-99) mg/dL POC Glucose (mg/dL) 115 H (75-99) mg/dL Troponin I 0.078 H* 0.088 H* (0.000-0.034) ng/mL 12/19/20 12/19/20 12/19/20 Range/Units 14:12 17:30 19:46 RBC (4.30-5.90) m/uL Hgb (13.0-17.5) gm/dL Hct (39.0-53.0) % RDW (11.5-15.5) % Lymphocytes # (1.0-4.8) k/uL APTT 33.0 H (22.0-30.0) sec Carbon Dioxide (22-30) mmol/L BUN (9-20) mg/dL Creatinine (0.66-1.25) mg/dL Glucose (74-99) mg/dL POC Glucose (mg/dL) 138 H 119 H (75-99) mg/dL Troponin I (0.000-0.034) ng/mL 12/19/20 12/20/20 12/20/20 Range/Units 20:17 04:51 04:51 RBC 4.07 L (4.30-5.90) m/uL Hgb 11.5 L (13.0-17.5) gm/dL Hct 34.4 L (39.0-53.0) % RDW 15.9 H (11.5-15.5) % Lymphocytes # 0.6 L (1.0-4.8) k/uL APTT 35.6 H (22.0-30.0) sec Carbon Dioxide 21 L (22-30) mmol/L BUN 23 H (9-20) mg/dL Creatinine 1.37 H (0.66-1.25) mg/dL Glucose 126 H (74-99) mg/dL POC Glucose (mg/dL) (75-99) mg/dL Troponin I (0.000-0.034) ng/mL 12/20/20 12/20/20 Range/Units 04:51 06:15 RBC (4.30-5.90) m/uL Hgb (13.0-17.5) gm/dL Hct (39.0-53.0) % RDW (11.5-15.5) % Lymphocytes # (1.0-4.8) k/uL APTT 40.0 H (22.0-30.0) sec Carbon Dioxide (22-30) mmol/L BUN (9-20) mg/dL Creatinine (0.66-1.25) mg/dL Glucose (74-99) mg/dL POC Glucose (mg/dL) 138 H (75-99) mg/dL Troponin I (0.000-0.034) ng/mL Assessment and Plan Assessment: This is a 70-year-old male with past medical history noted below who presented to the emergency room with worsening shortness of breath and orthopnea. Patient was evaluated in the ER and admitted to the hospital for further management of his medical problems noted below. 1. Acute systolic heart failure exacerbation: Echocardiogram showed EF of 20- 25%. Started on IV Lasix 40 mg twice daily with not a very good response. I would increase Lasix dose to 40 mg every 8 hours.. We will continue strict I's and O's and daily weights. 2. Acute hypoxic respiratory failure: Requiring 2 L of oxygen via nasal cannula. Chest x-ray showed evidence of fluid overload and pulmonary edema. COVID-19 screen negative. I would obtain repeat chest x-ray in the morning as follow-up 3. Troponin elevation: Most likely non-thrombotic troponin leak secondary to underlying CHF. Patient denies any chest pain. 12-lead EKG showed no acute ischemic changes in the emergency room. Patient was started on IV heparin drip by ER staff. Cardiology consulted for further evaluation. I would discontinue IV heparin today. Continue dual antiplatelet therapy. Echocardiogram showed diffuse akinesia involving left ventricular wall 4. Hypomagnesemia: Replaced 5. Coronary artery disease with history of CABG in year 1999 and subsequent stent placement most recently in June 2019 with drug-eluting stent to first dose marginal branch of circumflex and proximal and mid circumflex coronary artery. On dual antiplatelet therapy. 6. Type 2 diabetes: Hold home dose of metformin and continue sliding scale insulin 7. Essential hypertension: Blood pressure within acceptable range. Continue home regimen 8. Hyperlipidemia: On Lipitor 9. Ischemic cardiomyopathy, patient might be a candidate for AICD. Will discuss further with cardiology. Today, I reviewed his medication list and lab work results. Repeat lab work in the morning.
[2020-12-20] MEDS ORDERED: FUROSEMIDE 10 MG/ML 4 ML VIAL IV ONE (10:00)
[2020-12-20] MEDS ORDERED: FUROSEMIDE 10 MG/ML 4 ML VIAL IV SCH (10:00)
[2020-12-20] MEDS ORDERED: HEPARIN SODIUM,PORCINE 5,000 UNIT/ML 1 ML VIAL IV PRN (10:17)
[2020-12-20] MEDS: SPIRONOLACTONE 25 MG TAB PO SCH (11:03)
[2020-12-20 11:43] LABS: Glucose,Whole Blood 183 mg/dL (75-99)
--- NOTE | 2020-12-20 12:52 | P.PN ---
Subjective Progress Note Date: 12/20/20 HISTORY OF PRESENT ILLNESS: 12/19/2020 This is a 70-year-old male with a past medical history significant for coronary artery disease with previous CABG and PCI, diabetes mellitus, GERD, hypertension, and hyperlipidemia. Patient follows in the office with . We have been asked to see the patient in consultation for congestive heart failure. Patient examined at the bedside. Patient reports he has been having shortness of breath over the last 2-3 weeks. Patient states he did not seek any treatment for this because he thought "it would pass". However he states his shortness of breath has continued to worsen and yesterday he was so dyspneic he came to the emergency room for further evaluation. He also reports increased lower extremity edema. He denies any chest pain or pressure. He states his breathing has improved already since coming to the hospital. He denies dizziness or lightheadedness. Denies cough or congestion. EKG sinus rhythm with PACs Chest x-ray mild cardiomegaly, mild vascular congestion/edema, small bilateral pleural effusions. Laboratory data: WBC 6.1. Hemoglobin 11.9. Platelet count 196. Sodium 142. Potassium 3.5. BUN 21. Creatinine 1.32. Lactic acid 1.4. Magnesium 1.2. Troponin 0.077. 0.078. BNP 10,700. Current home cardiac medications include lisinopril 40 mg daily, amlodipine 10 mg daily, Demadex 20 mg daily, metoprolol tartrate 75 mg twice a day, Imdur 30 mg daily, Plavix 75 mg daily, Lipitor 80 mg daily, and aspirin 81 mg daily Cardiac catheterization history: June 2019 with PCI to first OM range of th e circumflex and PCI of proximal and mid circumflex 12/20/2020 Patient examined this morning. He is sitting in the chair. He denies chest pain or pressure. He reports continued shortness of breath. Fluid balance over the last 24 hours is -400 mL. Echocardiogram completed reveals ejection fraction 20-25%, mild aortic stenosis, mild mitral regurgitation, and mild tricuspid regurgitation. Patient had echocardiogram completed in June 2020 at the cardiology office revealing ejection fraction 50%. PHYSICAL EXAM: VITAL SIGNS: Reviewed. GENERAL: Well-developed in no acute distress. HEENT: Head is normocephalic. Pupils are equal, round. Sclerae anicteric. Mucous membranes of the mouth are moist. Neck supple. No JVD or thyromegaly LUNGS: Respirations even and unlabored. Lungs diminished bilaterally HEART: Regular rate and rhythm. S1 and S2 heard. Systolic murmur noted. ABDOMEN: Soft. Nondistended. Nontender. EXTREMITIES: Normal range of motion. No clubbing or cyanosis. Peripheral pulses intact. 3+ pitting edema of left lower extremity. 2+ pitting edema of right lower extremity NEUROLOGIC: Awake and alert. Oriented x 3. ASSESSMENT: Acute exacerbation of chronic systolic heart failure, EF 20-25%, EF previously 50% in 2019 per echo at cardiology office Coronary artery disease with previous CABG and PCI Hypertension Hyperlipidemia Diabetes mellitus GERD PLAN: Continue IV heparin Continue current cardiac medications Increase Lasix to 80 mg every 8 hours Monitor kidney function Daily weights Accurate I&O Nothing by mouth at midnight Possible cardiac catheterization tomorrow due to new impaired EF and abnormal troponins Further recommendations pending patient course Nurse practitioner note has been reviewed by physician. Signing provider agrees with the documented findings, assessment, and plan of care. Objective - Vital Signs Vital signs: Vital Signs Temp 97.8 F 12/20/20 08:00 Pulse 72 12/20/20 11:24 Resp 20 12/20/20 11:02 BP 117/78 12/20/20 11:02 Pulse Ox 96 12/20/20 11:29 Intake & Output 12/19/20 12/20/20 12/20/20 18:59 06:59 18:59 Intake Total 222 234.123 360 Output Total 850 750 Balance 222 -615.877 -390 Weight 92.986 kg 92.2 kg Intake: Intake, IV Titration 234.123 Amount Heparin Sod,Pork in 0.45% 234.123 NaCl 25,000 unit In 0.45 % NaCl 1 250ml.bag @ 10. 754 UNITS/KG/HR 10 mls/hr IV .Q24H [facility] Rx#: [id number] Oral 222 360 Output: Urine 850 750 Other: Voiding Method Toilet Toilet Urinal Urinal # Voids 2 - Labs CBC & Chem 7: 12/20/20 04:51 12/20/20 04:51 Labs: Abnormal Lab Results - Last 24 Hours (Table) 12/19/20 12/19/20 12/19/20 Range/Units 12:11 14:12 17:30 RBC (4.30-5.90) m/uL Hgb (13.0-17.5) gm/dL Hct (39.0-53.0) % RDW (11.5-15.5) % Lymphocytes # (1.0-4.8) k/uL APTT 33.0 H (22.0-30.0) sec Carbon Dioxide (22-30) mmol/L BUN (9-20) mg/dL Creatinine (0.66-1.25) mg/dL Glucose (74-99) mg/dL POC Glucose (mg/dL) 138 H (75-99) mg/dL Troponin I 0.088 H* (0.000-0.034) ng/mL 12/19/20 12/19/20 12/20/20 Range/Units 19:46 20:17 04:51 RBC (4.30-5.90) m/uL Hgb (13.0-17.5) gm/dL Hct (39.0-53.0) % RDW (11.5-15.5) % Lymphocytes # (1.0-4.8) k/uL APTT 35.6 H (22.0-30.0) sec Carbon Dioxide 21 L (22-30) mmol/L BUN 23 H (9-20) mg/dL Creatinine 1.37 H (0.66-1.25) mg/dL Glucose 126 H (74-99) mg/dL POC Glucose (mg/dL) 119 H (75-99) mg/dL Troponin I (0.000-0.034) ng/mL 12/20/20 12/20/20 12/20/20 Range/Units 04:51 04:51 06:15 RBC 4.07 L (4.30-5.90) m/uL Hgb 11.5 L (13.0-17.5) gm/dL Hct 34.4 L (39.0-53.0) % RDW 15.9 H (11.5-15.5) % Lymphocytes # 0.6 L (1.0-4.8) k/uL APTT 40.0 H (22.0-30.0) sec Carbon Dioxide (22-30) mmol/L BUN (9-20) mg/dL Creatinine (0.66-1.25) mg/dL Glucose (74-99) mg/dL POC Glucose (mg/dL) 138 H (75-99) mg/dL Troponin I (0.000-0.034) ng/mL 12/20/20 12/20/20 Range/Units 11:41 11:50 RBC (4.30-5.90) m/uL Hgb (13.0-17.5) gm/dL Hct (39.0-53.0) % RDW (11.5-15.5) % Lymphocytes # (1.0-4.8) k/uL APTT 34.3 H (22.0-30.0) sec Carbon Dioxide (22-30) mmol/L BUN (9-20) mg/dL Creatinine (0.66-1.25) mg/dL Glucose (74-99) mg/dL POC Glucose (mg/dL) 183 H (75-99) mg/dL Troponin I (0.000-0.034) ng/mL
[2020-12-20] MEDS: FUROSEMIDE 10 MG/ML 10 ML VIAL IV SCH ×2 (16:00→23:08)
[2020-12-20 16:57] LABS: Glucose,Whole Blood 111 mg/dL (75-99)
[2020-12-20 19:41] LABS: Glucose,Whole Blood 203 mg/dL (75-99)
[2020-12-21 06:16] LABS: Glucose,Whole Blood 120 mg/dL (75-99)
[2020-12-21] MEDS: INSULIN ASPART (NovoLOG) 100 UNIT/ML VIAL SQ SCH ×4 (06:26→20:46)
[2020-12-21] MEDS: PANTOPRAZOLE 40 MG TABLET PO SCH (06:29)
[2020-12-21] MEDS: HEPARIN SOD,PORK IN 0.45% NACL 25,000 UNIT in 0.45% NACL 1 250ML.BAG IV SCH (06:29)
[2020-12-21 07:03] LABS: Basophils % (A) 0 %; Eosinophils # (A) 0.1 k/uL (0-0.7); Eosinophils % (A) 2 %; HCT 34.8 % (39.0-53.0); HGB 11.5 gm/dL (13.0-17.5); Lymphocytes # (A) 0.5 k/uL (1.0-4.8); Lymphocytes % (A) 12 %; MCH 28.1 pg (25.0-35.0); MCV 85.1 fL (80.0-100.0); Mean Platelet Volume 7.5; Monocytes # (A) 0.3 k/uL (0-1.0); Monocytes % (A) 7 %; Neutrophils # (A) 3.4 k/uL (1.3-7.7); Neutrophils % (A) 76 %; Platelet Count 181 k/uL (150-450); RBC 4.09 m/uL (4.30-5.90); WBC 4.4 k/uL (3.8-10.6)
[2020-12-21 07:20] LABS: Calcium 9.1 mg/dL (8.4-10.2); Magnesium 1.7 mg/dL (1.6-2.3); Potassium 3.6 mmol/L (3.5-5.1)
[2020-12-21] MEDS: ALBUTEROL NEBULIZED 2.5 MG/3 ML INHALATION PRN (07:55)
--- NOTE | 2020-12-21 08:15 | XR ---
EXAMINATION TYPE: XR chest 1V DATE OF EXAM: 12/21/2020 COMPARISON: 12/19/2020 HISTORY: 70-year-old male follow-up TECHNIQUE: Single frontal view of the chest is obtained. FINDINGS: Median sternotomy wires and postsurgical clips in the mediastinum. Heart is enlarged. Small effusions and interstitial prominence which appears slightly improved. IMPRESSION: Correlate for CHF with improving pulmonary vascular congestion. Persistent small effusions with adjac ent atelectasis and/or consolidation.
[2020-12-21] MEDS: amLODIPine 10 MG TAB PO SCH (08:25)
[2020-12-21] MEDS: lisinopriL 20 MG TAB PO SCH (08:25)
[2020-12-21] MEDS: TAMSULOSIN 0.4 MG CAP.ER.24H PO SCH ×2 (08:25→20:46)
[2020-12-21] MEDS: CLOPIDOGREL 75 MG TAB PO SCH (08:25)
[2020-12-21] MEDS: ATORVASTATIN 80 MG TAB PO SCH (08:25)
[2020-12-21] MEDS: METOPROLOL TARTRATE 25 MG TAB PO SCH ×2 (08:26→20:46)
[2020-12-21] MEDS: SPIRONOLACTONE 25 MG TAB PO SCH (08:26)
[2020-12-21] MEDS: CHOLECALCIFEROL 25 MCG (1000 IU) TABLET PO SCH (08:26)
[2020-12-21] MEDS: POTASSIUM CHLORIDE ER 20 MEQ TAB.ER PO SCH (08:26)
[2020-12-21] MEDS: allopurinoL 100 MG TAB PO SCH (08:26)
[2020-12-21] MEDS: ISOSORBIDE MONONITRATE ER 30 MG TAB.ER.24H PO SCH (08:26)
[2020-12-21] MEDS: ASPIRIN 81 MG PO SCH (08:26)
[2020-12-21] MEDS: FUROSEMIDE 10 MG/ML 10 ML VIAL IV SCH ×2 (08:29→20:46)
[2020-12-21 11:55] LABS: Glucose,Whole Blood 170 mg/dL (75-99)
[2020-12-21] MEDS ORDERED: ALPRAZolam 0.25 MG TAB PO PRN (12:30)
[2020-12-21] MEDS ORDERED: ALPRAZolam 0.5 MG TAB PO PRN (12:30)
[2020-12-21] MEDS ORDERED: NITROGLYCERIN SL TABS 0.4 MG TAB SUBLINGUAL PRN (12:30)
--- NOTE | 2020-12-21 12:35 | P.PN ---
Subjective This is a pleasant 70-year-old male past medical history significant for coronary artery disease s/p bypass grafting and PCI, diabetes mellitus, hyp ertension, dyslipidemia and GERD. He follows in the office with Dr. Hicks. He is seen and examined in no acute distress. He continues to improve daily. Blood pressure 111/75 heart rate 77 afebrile and maintaining oxygen saturation on nasal cannula. Laboratory data reviewed, WBC 4.4, hgb 11.5, platelets 181, sodium 143, potassium 3.6, creatinine 1.54, magnesium 1.7 and proBNP 41681. Currently maintained on amlodipine 10 mg daily, aspirin 81 mg daily, atorvastatin 80 mg daily, plavix 75 mg daily, lasix 60 mg IV BID, heparin infusion, imidur 30 mg daily, lisinopirl 4mg daily, lopressor 75 mg daily and aldactone 12.5 mg daily. 24- hours urine output 3K and maintaining a negative fluid balance. Repeat chest xray today reveals improving vascular congestion with ongoing heart failure. GENERAL: Well-appearing, well-nourished and in no acute distress. NECK: Supple without JVD or thyromegaly. LUNGS: Bibasilar rales. Respiration equal and unlabored. Diminished bilaterally. HEART: Regular rate and rhythm with systolic ejection murmur at the base, no rubs or gallops. S1 and S2 heard. EXTREMITIES: Normal range of motion, 2+ pitting edema bilaterally. No clubbing or cyanosis. Peripheral pulses intact. ASSESSMENT Acute on chronic heart failure with reduced ejection fraction NSTEMI Coronary artery disease s/p bypass grafting and PCI Hypertension Dyslipidemia Diabetes mellitus PLAN Continue current medical regimen and diuresis. Plan for catheterization tomorrow if he continues to improve from a heart failure standpoint. NPO after midnight. Follow renal function in the morning. Further recommendations to follow based on clinical course. Nurse Practitioner note has been reviewed, I agree with a documented findings and plan of care. Patient was seen and examined. Objective - Vital Signs Vital signs: Vital Signs Temp 98.1 F 12/21/20 04:10 Pulse 77 12/21/20 11:39 Resp 18 12/21/20 11:39 BP 111/75 12/21/20 11:39 Pulse Ox 99 12/21/20 11:39 Intake & Output 12/20/20 12/21/20 12/21/20 18:59 06:59 18:59 Intake Total 240.890 3169.509 34.241 Output Total 1750 1250 450 Balance -878.509 -221.491 -415.759 Weight 90.5 kg Intake: Intake, IV Titration 31.491 218.509 34.241 Amount Heparin Sod,Pork in 0.45% 31.491 218.509 34.241 NaCl 25,000 unit In 0.45 % NaCl 1 250ml.bag @ 13. 754 UNITS/KG/HR 12.681 mls/hr IV .[id number] [facility] Rx #:[id number] Oral 840 810 Output: Urine 1750 1250 450 Other: Voiding Method Toilet Urinal # Voids 2 - Labs CBC & Chem 7: 12/21/20 06:04 12/21/20 06:04 Labs: Abnormal Lab Results - Last 24 Hours (Table) 12/20/20 12/20/20 12/20/20 Range/Units 11:50 16:56 19:04 RBC (4.30-5.90) m/uL Hgb (13.0-17.5) gm/dL Hct (39.0-53.0) % RDW (11.5-15.5) % Lymphocytes # (1.0-4.8) k/uL APTT 34.3 H 50.9 H (22.0-30.0) sec BUN (9-20) mg/dL Creatinine (0.66-1.25) mg/dL Glucose (74-99) mg/dL POC Glucose (mg/dL) 111 H (75-99) mg/dL 12/20/20 12/21/20 12/21/20 Range/Units 19:39 06:04 06:04 RBC 4.09 L (4.30-5.90) m/uL Hgb 11.5 L (13.0-17.5) gm/dL Hct 34.8 L (39.0-53.0) % RDW 16.0 H (11.5-15.5) % Lymphocytes # 0.5 L (1.0-4.8) k/uL APTT (22.0-30.0) sec BUN 24 H (9-20) mg/dL Creatinine 1.54 H (0.66-1.25) mg/dL Glucose 122 H (74-99) mg/dL POC Glucose (mg/dL) 203 H (75-99) mg/dL 12/21/20 12/21/20 12/21/20 Range/Units 06:04 06:14 11:52 RBC (4.30-5.90) m/uL Hgb (13.0-17.5) gm/dL Hct (39.0-53.0) % RDW (11.5-15.5) % Lymphocytes # (1.0-4.8) k/uL APTT 68.1 H (22.0-30.0) sec BUN (9-20) mg/dL Creatinine (0.66-1.25) mg/dL Glucose (74-99) mg/dL POC Glucose (mg/dL) 120 H 170 H (75-99) mg/dL
--- NOTE | 2020-12-21 14:04 | P.PN ---
Subjective Progress Note Date: 12/21/20 Patient is awake and alert. Shortness of breath is improving. He is diuresing well. Objective - Vital Signs Vital signs: Vital Signs Temp 98.1 F 12/21/20 04:10 Pulse 77 12/21/20 11:39 Resp 18 12/21/20 11:39 BP 111/75 12/21/20 11:39 Pulse Ox 99 12/21/20 11:39 Intake & Output 12/20/20 12/21/20 12/21/20 18:59 06:59 18:59 Intake Total 015.190 7794.509 274.241 Output Total 1750 1250 450 Balance -878.509 -221.491 -175.759 Weight 90.5 kg Intake: Intake, IV Titration 31.491 218.509 34.241 Amount Heparin Sod,Pork in 0.45% 31.491 218.509 34.241 NaCl 25,000 unit In 0.45 % NaCl 1 250ml.bag @ 13. 754 UNITS/KG/HR 12.681 mls/hr IV .[id number] [facility] Rx #:[id number] Oral 840 810 240 Output: Urine 1750 1250 450 Other: Voiding Method Toilet Urinal # Voids 2 - Exam General: The patient is awake and alert, in no distress Eye: there is normal conjunctiva bilaterally. Neck: The neck is supple, there is no JVD. Cardiovascular: Normal S1-S2, no S3-S4, no murmurs. Respiratory: Lungs with scattered crackles Gastrointestinal: Abdomen is soft, nontender Musculoskeletal: There is +1 pedal edema. Neurological:. Speech is normal. Skin: Skin is warm and dry - Labs CBC & Chem 7: 12/21/20 06:04 12/21/20 06:04 Labs: Abnormal Lab Results - Last 24 Hours (Table) 12/20/20 12/20/20 12/20/20 Range/Units 16:56 19:04 19:39 RBC (4.30-5.90) m/uL Hgb (13.0-17.5) gm/dL Hct (39.0-53.0) % RDW (11.5-15.5) % Lymphocytes # (1.0-4.8) k/uL APTT 50.9 H (22.0-30.0) sec BUN (9-20) mg/dL Creatinine (0.66-1.25) mg/dL Glucose (74-99) mg/dL POC Glucose (mg/dL) 111 H 203 H (75-99) mg/dL 12/21/20 12/21/20 12/21/20 Range/Units 06:04 06:04 06:04 RBC 4.09 L (4.30-5.90) m/uL Hgb 11.5 L (13.0-17.5) gm/dL Hct 34.8 L (39.0-53.0) % RDW 16.0 H (11.5-15.5) % Lymphocytes # 0.5 L (1.0-4.8) k/uL APTT 68.1 H (22.0-30.0) sec BUN 24 H (9-20) mg/dL Creatinine 1.54 H (0.66-1.25) mg/dL Glucose 122 H (74-99) mg/dL POC Glucose (mg/dL) (75-99) mg/dL 12/21/20 12/21/20 Range/Units 06:14 11:52 RBC (4.30-5.90) m/uL Hgb (13.0-17.5) gm/dL Hct (39.0-53.0) % RDW (11.5-15.5) % Lymphocytes # (1.0-4.8) k/uL APTT (22.0-30.0) sec BUN (9-20) mg/dL Creatinine (0.66-1.25) mg/dL Glucose (74-99) mg/dL POC Glucose (mg/dL) 120 H 170 H (75-99) mg/dL Assessment and Plan Assessment: This is a 70-year-old male with past medical history noted below who presented to the emergency room with worsening shortness of breath and orthopnea. Patient was evaluated in the ER and admitted to the hospital for further management of his medical problems noted below. 1. Acute systolic heart failure exacerbation: Echocardiogram showed EF of 20- 25%. Started on IV Lasix 40 mg twice daily now increased to 60 twice a day. We will continue strict I's and O's and daily weights. 2. Acute hypoxic respiratory failure: Requiring 2 L of oxygen via nasal cannula . Chest x-ray showed evidence of fluid overload and pulmonary edema. COVID-19 screen negative. I would obtain repeat chest x-ray in the morning as follow-up 3. Troponin elevation: Most likely non-thrombotic troponin leak secondary to underlying CHF. Patient denies any chest pain. 12-lead EKG showed no acute ischemic changes in the emergency room. Patient was started on IV heparin drip by cardiology. Cardiology consulted for further evaluation. Plan for left heart catheterization tomorrow. Continue dual antiplatelet therapy. Echocardiogram showed diffuse akinesia involving left ventricular wall 4. Hypomagnesemia: Replaced 5. Coronary artery disease with history of CABG in year 1999 and subsequent stent placement most recently in June 2019 with drug-eluting stent to first dose marginal branch of circumflex and proximal and mid circumflex coronary artery. On dual antiplatelet therapy. 6. Type 2 diabetes: Hold home dose of metformin and continue sliding scale insulin 7. Essential hypertension: Blood pressure within acceptable range. Continue home regimen 8. Hyperlipidemia: On Lipitor 9. Ischemic cardiomyopathy, patient might be a candidate for AICD. Will raven henry further with cardiology. Today, I reviewed his medication list and lab work results. Repeat lab work in the morning.
[2020-12-21] MEDS ORDERED: Magnesium Replacement Protocol 1 EACH MISC MISCELLANE PRN (16:06)
[2020-12-21 17:14] LABS: Glucose,Whole Blood 90 mg/dL (75-99)
[2020-12-21] MEDS: MAGNESIUM SULFATE-D5W PMX 1 GM in DEXTROSE/WATER 1 100ML.BAG IVPB SCH ×2 (17:14→18:33)
[2020-12-21 20:24] LABS: Glucose,Whole Blood 168 mg/dL (75-99)
[2020-12-22] MEDS: SODIUM CHLORIDE 0.9% 1,000 ML IV SCH ×2 (00:30→21:08)
[2020-12-22] MEDS: ALBUTEROL NEBULIZED 2.5 MG/3 ML INHALATION PRN ×3 (00:35→19:17)
[2020-12-22] MEDS: PANTOPRAZOLE 40 MG TABLET PO SCH (05:47)
[2020-12-22] MEDS: INSULIN ASPART (NovoLOG) 100 UNIT/ML VIAL SQ SCH ×4 (05:47→20:51)
[2020-12-22] MEDS: HEPARIN SOD,PORK IN 0.45% NACL 25,000 UNIT in 0.45% NACL 1 250ML.BAG IV SCH ×2 (05:48→15:08)
[2020-12-22 06:34] LABS: Anisocytosis Slight; Basophils % (A) 1 %; Eosinophils # (A) 0.1 k/uL (0-0.7); Eosinophils % (A) 2 %; HCT 33.6 % (39.0-53.0); Lymphocytes # (A) 0.5 k/uL (1.0-4.8); Lymphocytes % (A) 12 %; MCHC 32.6 g/dL (31.0-37.0); MCV 85.8 fL (80.0-100.0); Mean Platelet Volume 7.4; Monocytes # (A) 0.3 k/uL (0-1.0); Monocytes % (A) 8 %; Neutrophils % (A) 76 %; Platelet Count 168 k/uL (150-450); RBC 3.92 m/uL (4.30-5.90); RDW 16.1 % (11.5-15.5)
[2020-12-22] MEDS ORDERED: HEPARIN SODIUM,PORCINE 10,000 UNIT in SODIUM CHLORIDE 0.9% 1,000 ML IRRIGATION PRN (07:00)
[2020-12-22] MEDS ORDERED: HEPARIN SODIUM,PORCINE 2,500 UNIT in SODIUM CHLORIDE 0.9% 250 ML IRRIGATION PRN (07:00)
[2020-12-22 07:30] LABS: Calcium 9.1 mg/dL (8.4-10.2); Magnesium 2.1 mg/dL (1.6-2.3); Potassium 3.7 mmol/L (3.5-5.1)
[2020-12-22] MEDS: ISOSORBIDE MONONITRATE ER 30 MG TAB.ER.24H PO SCH (08:30)
[2020-12-22] MEDS: METOPROLOL TARTRATE 25 MG TAB PO SCH ×2 (08:30→22:23)
[2020-12-22] MEDS: ASPIRIN 81 MG PO SCH (08:30)
[2020-12-22] MEDS: allopurinoL 100 MG TAB PO SCH (08:30)
[2020-12-22] MEDS: ATORVASTATIN 80 MG TAB PO SCH (08:31)
[2020-12-22] MEDS: lisinopriL 20 MG TAB PO SCH ×2 (08:31→12:15)
[2020-12-22] MEDS: POTASSIUM CHLORIDE ER 20 MEQ TAB.ER PO SCH (08:31)
[2020-12-22] MEDS: amLODIPine 10 MG TAB PO SCH (08:31)
[2020-12-22] MEDS: CHOLECALCIFEROL 25 MCG (1000 IU) TABLET PO SCH (08:31)
[2020-12-22] MEDS: SPIRONOLACTONE 25 MG TAB PO SCH (08:31)
[2020-12-22] MEDS: TAMSULOSIN 0.4 MG CAP.ER.24H PO SCH ×2 (08:32→20:51)
[2020-12-22] MEDS: CLOPIDOGREL 75 MG TAB PO SCH (08:36)
--- NOTE | 2020-12-22 09:15 | P.PN ---
Subjective Progress Note Date: 12/22/20 Patient is feeling well today. This shortness of breath is improving. He is diuresing well. Patient is scheduled for left heart catheterization today at 11:30 in the morning. Objective - Vital Signs Vital signs: Vital Signs Temp 98.2 F 12/22/20 05:51 Pulse 77 12/22/20 08:16 Resp 16 12/22/20 05:51 BP 102/57 12/22/20 05:51 Pulse Ox 96 12/22/20 05:51 Intake & Output 12/21/20 12/22/20 12/22/20 18:59 06:59 18:59 Intake Total 514.241 215.759 Output Total 800 975 Balance -285.759 -759.241 Weight 91.9 kg Intake: Intake, IV Titration 34.241 215.759 Amount Heparin Sod,Pork in 0.45% 34.241 215.759 NaCl 25,000 unit In 0.45 % NaCl 1 250ml.bag @ 13. 754 UNITS/KG/HR 12.681 mls/hr IV .[id number] [facility] Rx #:[id number] Oral 480 0 Output: Urine 800 975 Other: # Voids 1 - Exam General: The patient is awake and alert, in no distress Eye: there is normal conjunctiva bilaterally. Neck: The neck is supple, there is no JVD. Cardiovascular: Normal S1-S2, no S3-S4, no murmurs. Respiratory: Lungs with scattered crackles Gastrointestinal: Abdomen is soft, nontender Musculoskeletal: There is +1 pedal edema. Neurological:. Speech is normal. Skin: Skin is warm and dry - Labs CBC & Chem 7: 12/22/20 06:02 12/22/20 06:02 Labs: Abnormal Lab Results - Last 24 Hours (Table) 12/21/20 12/21/20 12/21/20 Range/Units 11:52 15:52 20:23 RBC (4.30-5.90) m/uL Hgb (13.0-17.5) gm/dL Hct (39.0-53.0) % RDW (11.5-15.5) % Lymphocytes # (1.0-4.8) k/uL APTT 52.0 H (22.0-30.0) sec BUN (9-20) mg/dL Creatinine (0.66-1.25) mg/dL Glucose (74-99) mg/dL POC Glucose (mg/dL) 170 H 168 H (75-99) mg/dL 12/22/20 12/22/20 12/22/20 Range/Units 06:02 06:02 07:57 RBC 3.92 L (4.30-5.90) m/uL Hgb 11.0 L (13.0-17.5) gm/dL Hct 33.6 L (39.0-53.0) % RDW 16.1 H (11.5-15.5) % Lymphocytes # 0.5 L (1.0-4.8) k/uL APTT 53.3 H (22.0-30.0) sec BUN 29 H (9-20) mg/dL Creatinine 1.50 H (0.66-1.25) mg/dL Glucose 107 H (74-99) mg/dL POC Glucose (mg/dL) (75-99) mg/dL Assessment and Plan Assessment: This is a 70-year-old male with past medical history noted below who presented to the emergency room with worsening shortness of breath and orthopnea. Patient was evaluated in the ER and admitted to the hospital for further management of his medical problems noted below. 1. Acute systolic heart failure exacerbation: Echocardiogram showed EF of 20- 25%. Started on IV Lasix 40 mg twice daily now increased to 60 twice a day. We will continue strict I's and O's and daily weights. 2. Acute hypoxic respiratory failure: Requiring 2 L of oxygen via nasal cannula. Chest x-ray showed evidence of fluid overload and pulmonary edema. COVID-19 screen negative. I would obtain repeat chest x-ray in the morning as follow-up 3. Troponin elevation: Most likely non-thrombotic troponin leak secondary to underlying CHF. Patient denies any chest pain. 12-lead EKG showed no acute ischemic changes in the emergency room. Patient was started on IV heparin drip by cardiology. Cardiology consulted for further evaluation. Continue dual antiplatelet therapy. Echocardiogram showed diffuse akinesia involving left ventricular wall 4. Hypomagnesemia: Replaced 5. Coronary artery disease with history of CABG in year 1999 and subsequent stent placement most recently in June 2019 with drug-eluting stent to first dose marginal branch of circumflex and proximal and mid circumflex coronary artery. On dual antiplatelet therapy. 6. Type 2 diabetes: Hold home dose of metformin and continue sliding scale insulin 7. Essential hypertension: Blood pressure within acceptable range. Continue home regimen 8. Hyperlipidemia: On Lipitor 9. Ischemic cardiomyopathy, patient might be a candidate for AICD. Will discuss further with cardiology. Today, I reviewed his medication list and lab work results. Heparin drip managed by cardiology. Also IV fluid started by cardiology? Repeat lab work in the morning. Scheduled for left heart catheterization today
[2020-12-22] MEDS ORDERED: HEPARIN SODIUM 1,000 UN/ML (10ML VL) ONE (09:45)
[2020-12-22] MEDS ORDERED: VERAPAMIL 2.5 MG/ML 2 ML AMP ONE (09:45)
[2020-12-22] MEDS ORDERED: fentaNYL (PF) 50 MCG/ML 2 ML AMP ONE (09:46)
[2020-12-22] MEDS ORDERED: LIDOCAINE 1% INJ 10MG/ML (20 ML MDV) ONE (09:46)
[2020-12-22] MEDS ORDERED: fentaNYL (PF) 50 MCG/ML 2 ML AMP IV ONE (10:23)
[2020-12-22] MEDS ORDERED: IV FLUID CONTINUATION 400 ML IV ONE (10:23)
[2020-12-22] MEDS ORDERED: MIDAZOLAM 2 MG/2 ML VIAL IV ONE (10:23)
[2020-12-22] MEDS ORDERED: LIDOCAINE 1% INJ 10MG/ML (20 ML MDV) SQ ONE (10:29)
[2020-12-22] MEDS ORDERED: IOPAMIDOL-370 125ML BTL INJ ONE (10:43)
[2020-12-22] MEDS ORDERED: RX INFO: IV CONTRAST WAS GIVEN 1 EACH MISC MISCELLANE PRN (10:56)
[2020-12-22] MEDS ORDERED: SODIUM CHLORIDE 0.9% 1,000 ML IV SCH (11:00)
[2020-12-22] MEDS ORDERED: HEPARIN SODIUM,PORCINE 5,000 UNIT/ML 1 ML VIAL IV ONE (11:15)
[2020-12-22] MEDS ORDERED: HEPARIN SODIUM,PORCINE 5,000 UNIT/ML 1 ML VIAL IV PRN (11:15)
[2020-12-22] MEDS ORDERED: DEXTROSE 5% IN WATER 100 ML with AMIODARONE 150 MG IV ONE (11:30)
[2020-12-22] MEDS ORDERED: AMIODARONE 360 MG in DEXTROSE 5% IN WATER 200 ML IV ONE ×2 (11:45)
[2020-12-22 11:58] LABS: Glucose,Whole Blood 105 mg/dL (75-99)
[2020-12-22] MEDS: FUROSEMIDE 10 MG/ML 10 ML VIAL IV SCH ×2 (12:15→20:50)
[2020-12-22] MEDS: ACETAMINOPHEN TAB 325 MG TAB PO PRN (14:18)
[2020-12-22 16:30] LABS: Glucose,Whole Blood 140 mg/dL (75-99)
[2020-12-22] MEDS ORDERED: HYDROcodone/APAP 10-325MG 1 EACH TAB PO ONE (16:45)
[2020-12-22] MEDS: AMIODARONE 450 MG in DEXTROSE 5% IN WATER 250 ML IV SCH ×2 (17:52)
[2020-12-22] MEDS ORDERED: Potassium Replacement Protocol 1 EACH MISC MISCELLANE PRN (18:21)
[2020-12-22] MEDS ORDERED: POTASSIUM CHLORIDE ER 20 MEQ TAB.ER PO SCH (19:00)
[2020-12-22 20:31] LABS: Glucose,Whole Blood 182 mg/dL (75-99)
[2020-12-23 04:57] LABS: Calcium 8.8 mg/dL (8.4-10.2); Potassium 4.1 mmol/L (3.5-5.1)
[2020-12-23 06:09] LABS: Glucose,Whole Blood 144 mg/dL (75-99)
[2020-12-23] MEDS: INSULIN ASPART (NovoLOG) 100 UNIT/ML VIAL SQ SCH ×4 (06:24→20:36)
[2020-12-23] MEDS: PANTOPRAZOLE 40 MG TABLET PO SCH (06:24)
[2020-12-23] MEDS: ALBUTEROL NEBULIZED 2.5 MG/3 ML INHALATION PRN ×3 (07:39→15:28)
[2020-12-23] MEDS: CHOLECALCIFEROL 25 MCG (1000 IU) TABLET PO SCH (09:02)
[2020-12-23] MEDS: TAMSULOSIN 0.4 MG CAP.ER.24H PO SCH ×2 (09:02→20:36)
[2020-12-23] MEDS: allopurinoL 100 MG TAB PO SCH (09:02)
[2020-12-23] MEDS: ATORVASTATIN 80 MG TAB PO SCH (09:02)
[2020-12-23] MEDS: ASPIRIN 81 MG PO SCH (09:02)
[2020-12-23] MEDS: ISOSORBIDE MONONITRATE ER 30 MG TAB.ER.24H PO SCH (09:02)
[2020-12-23] MEDS: lisinopriL 20 MG TAB PO SCH (09:02)
[2020-12-23] MEDS: METOPROLOL TARTRATE 25 MG TAB PO SCH ×2 (09:02→20:35)
[2020-12-23] MEDS: CLOPIDOGREL 75 MG TAB PO SCH (09:03)
--- NOTE | 2020-12-23 10:13 | P.PN ---
Subjective Progress Note Date: 12/23/20 Patient is awake and alert today. Shortness of breath is unchanged compared to yesterday. He denies any chest pain. No acute events overnight reported by nursing staff. Objective - Vital Signs Vital signs: Vital Signs Temp 97.6 F 12/23/20 08:00 Pulse 120 H 12/23/20 08:00 Resp 20 12/23/20 08:00 BP 117/69 12/23/20 08:00 Pulse Ox 95 12/23/20 08:00 Intake & Output 12/22/20 12/23/20 12/23/20 17:59 06:59 18:59 Intake Total 240 Output Total 275 Balance -35 Weight Intake: IV Intake, IV Titration Amount Amiodarone 360 mg In Dextrose 5% in Water 200 ml @ 1 MG/MIN 33.333 mls/ hr IV .Q6H [facility] Rx#: [id number] Heparin Sod,Pork in 0.45% NaCl 25,000 unit In 0.45 % NaCl 1 250ml.bag @ 12 UNITS/KG/HR 11.028 mls/hr IV .[id number] [facility] Rx#: [id number] Sodium Chloride 0.9% 1, 000 ml @ 50 mls/hr IV . Q20H [facility] Rx#:[id number] Oral 240 Output: Urine 275 Other: # Voids 1 - Exam General: The patient is awake and alert, in no distress Eye: there is normal conjunctiva bilaterally. Neck: The neck is supple, there is no JVD. Cardiovascular: Normal S1-S2, no S3-S4, no murmurs. Respiratory: Lungs with scattered crackles Gastrointestinal: Abdomen is soft, nontender Musculoskeletal: There is +1 pedal edema. Neurological:. Speech is normal. Skin: Skin is warm and dry - Labs CBC & Chem 7: 12/22/20 06:02 12/23/20 04:08 Labs: Abnormal Lab Results - Last 24 Hours (Table) 12/22/20 12/22/20 12/22/20 Range/Units 11:57 16:29 20:30 APTT (22.0-30.0) sec BUN (9-20) mg/dL Creatinine (0.66-1.25) mg/dL Glucose (74-99) mg/dL POC Glucose (mg/dL) 105 H 140 H 182 H (75-99) mg/dL 12/22/20 12/23/20 12/23/20 Range/Units 21:07 04:08 04:08 APTT 42.4 H 50.0 H (22.0-30.0) sec BUN 35 H (9-20) mg/dL Creatinine 2.02 H (0.66-1.25) mg/dL Glucose 116 H (74-99) mg/dL POC Glucose (mg/dL) (75-99) mg/dL 12/23/20 Range/Units 06:08 APTT (22.0-30.0) sec BUN (9-20) mg/dL Creatinine (0.66-1.25) mg/dL Glucose (74-99) mg/dL POC Glucose (mg/dL) 144 H (75-99) mg/dL Assessment and Plan Assessment: This is a 70-year-old male with past medical history noted below who presented to the emergency room with worsening shortness of breath and orthopnea. Patient was evaluated in the ER and admitted to the hospital for further management of his medical problems noted below. 1. Acute systolic heart failure exacerbation: Echocardiogram showed EF of 20- 25%. Started on IV Lasix with good response. We will continue strict I's and O's and daily weights. 2. Acute hypoxic respiratory failure: Requiring 2 L of oxygen via nasal cannula. Chest x-ray showed evidence of fluid overload and pulmonary edema. COVID-19 screen negative. The chest x-ray showed improved congestion 3. Troponin elevation: Most likely non-thrombotic troponin leak secondary to underlying CHF. Patient denies any chest pain. 12-lead EKG showed no acute ischemic changes in the emergency room. Patient was started on IV heparin drip by cardiology. He underwent left heart catheterization during this admission showing no in-stent restenosis. Awaiting final report. Continue dual antiplatelet therapy. Echocardiogram showed diffuse akinesia involving left ventricular wall 4. New onset atrial fibrillation, and started on IV amiodarone drip by cardiology 5. Coronary artery disease with history of CABG in year 1999 and subsequent stent placement most recently in June 2019 with drug-eluting stent to first dose marginal branch of circumflex and proximal and mid circumflex coronary artery. On dual antiplatelet therapy. 6. Type 2 diabetes: Hold home dose of metformin and continue sliding scale insulin 7. Essential hypertension: Blood pressure within acceptable range. Continue home regimen 8. Hyperlipidemia: On Lipitor 9. Ischemic cardiomyopathy, patient might be a candidate for AICD. Will discuss further with cardiology. Today, I reviewed his medication list and lab work results. Blood pressure appears soft and kidney function worsening. Discontinue amlodipine, hold Lasix, spironolactone, and potassium. Continue gentle IV fluid hydration. Repeat lab work in the morning.
[2020-12-23] MEDS: HEPARIN SOD,PORK IN 0.45% NACL 25,000 UNIT in 0.45% NACL 1 250ML.BAG IV SCH (10:45)
--- NOTE | 2020-12-23 10:49 | P.PN ---
Subjective Progress Note Date: 12/23/20 This is a pleasant 70-year-old male past medical history significant for coronary artery disease s/p bypass grafting and PCI, diabetes mellitus, hypertension, dyslipidemia and GERD. He follows in the office with Dr. Hicks. He is seen and examined in no acute distress. He continues to improve daily. Blood pressure 111/75 heart rate 77 afebrile and maintaining oxygen saturation on nasal cannula. Laboratory data reviewed, WBC 4.4, hgb 11.5, platelets 181, sodium 143, potassium 3.6, creatinine 1.54, magnesium 1.7 and proBNP 54009. Currently maintained on amlodipine 10 mg daily, aspirin 81 mg daily, atorvastatin 80 mg daily, plavix 75 mg daily, lasix 60 mg IV BID, heparin infusion, imidur 30 mg daily, lisinopirl 4mg daily, lopressor 75 mg daily and aldactone 12.5 mg daily. 24- hours urine output 3K and maintaining a negative fluid balance. Repeat chest xray today reveals improving vascular congestion with ongoing heart failure. 12/23: Patient underwent heart catheterization yesterday and all stents were open. Patient has been started on amiodarone for atrial fibrillation and will transition to oral today. Renal function continues to worsen with BUN of 35 and creatinine 2.02 and consult will be added for nephrology. Lisinopril will be discontinued. Patient has been off diuretics. He has been afebrile, heart rate 60, blood pressure 122/90, pulse ox 97% on room air. surveillance monitor is atrial fibrillation with controlled rate. Patient continues to complain of some shortness of breath, orthopnea. No chest pain. GENERAL: Well-appearing, well-nourished and in no acute distress. NECK: Supple without JVD or thyromegaly. LUNGS: Bibasilar rales. Respiration equal and unlabored. Diminished bilaterally. HEART: Irregular rate and rhythm with systolic ejection murmur at the base, no rubs or gallops. S1 and S2 heard. EXTREMITIES: Normal range of motion, 1+ pitting edema bilaterally. No clubbing or cyanosis. Peripheral pulses intact. Right groin soft with no sign of hematom a. ASSESSMENT Acute on chronic heart failure with reduced ejection fraction NSTEMI Coronary artery disease s/p bypass grafting and PCI Hypertension Dyslipidemia Diabetes mellitus Paroxysmal atrial fibrillation with RVR onset on 12/20 evening PLAN Diuretics are on hold, discontinue lisinopril due to worsening renal function Consult nephrology for acute kidney injury Start patient on dobutamine drip at 5 mcg/kg/m Continue amiodarone but transition IV piggyback to oral 400 mg twice daily Continue heparin drip Continue to monitor renal function Further recommendations to follow based on clinical course. Nurse Practitioner note has been reviewed, I agree with a documented findings and plan of care. Patient was seen and examined. Objective - Vital Signs Vital signs: Vital Signs Temp 97.7 F 12/23/20 04:30 Pulse 69 12/23/20 07:50 Resp 18 12/23/20 04:30 BP 122/90 12/23/20 04:30 Pulse Ox 97 12/23/20 04:30 Intake & Output 12/22/20 12/23/20 12/23/20 17:59 06:59 18:59 Intake Total 240 Output Total Balance 240 Weight Intake: IV Intake, IV Titration Amount Amiodarone 360 mg In Dextrose 5% in Water 200 ml @ 1 MG/MIN 33.333 mls/ hr IV .Q6H [facility] Rx#: [id number] Heparin Sod,Pork in 0.45% NaCl 25,000 unit In 0.45 % NaCl 1 250ml.bag @ 12 UNITS/KG/HR 11.028 mls/hr IV .[id number] [facility] Rx#: [id number] Sodium Chloride 0.9% 1, 000 ml @ 50 mls/hr IV . Q20H [facility] Rx#:[id number] Oral 240 Output: Urine Other: # Voids 1 - Labs CBC & Chem 7: 12/22/20 06:02 12/23/20 04:08 Labs: Abnormal Lab Results - Last 24 Hours (Table) 12/22/20 12/22/20 12/22/20 Range/Units 07:57 11:57 16:29 APTT 53.3 H (22.0-30.0) sec BUN (9-20) mg/dL Creatinine (0.66-1.25) mg/dL Glucose (74-99) mg/dL POC Glucose (mg/dL) 105 H 140 H (75-99) mg/dL 12/22/20 12/22/20 12/23/20 Range/Units 20:30 21:07 04:08 APTT 42.4 H (22.0-30.0) sec BUN 35 H (9-20) mg/dL Creatinine 2.02 H (0.66-1.25) mg/dL Glucose 116 H (74-99) mg/dL POC Glucose (mg/dL) 182 H (75-99) mg/dL 12/23/20 12/23/20 Range/Units 04:08 06:08 APTT 50.0 H (22.0-30.0) sec BUN (9-20) mg/dL Creatinine (0.66-1.25) mg/dL Glucose (74-99) mg/dL POC Glucose (mg/dL) 144 H (75-99) mg/dL
[2020-12-23] MEDS: DOBUTamine DRIP 500 MG in DEXTROSE/WATER 1 250ML.BAG IV SCH (11:25)
[2020-12-23] MEDS: AMIODARONE 200 MG TAB PO SCH ×2 (11:33→20:35)
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
[2020-12-23 11:57] LABS: Glucose,Whole Blood 156 mg/dL (75-99)
[2020-12-23] MEDS: APIXABAN 5 MG TAB PO SCH ×3 (12:14→23:32)
--- NOTE | 2020-12-23 12:34 | P.CARDCATH ---
Date of Procedure: 12/23/20 Preoperative Diagnosis: Cardiomyopathy, congestive heart failure, known ischemic heart disease with stent placements of the circumflex and right coronary artery Postoperative Diagnosis: Patent stents without any progression of the coronary artery disease Procedure(s) Performed: Cardiac catheterization without left ventriculography Description of Procedure: HISTORY: . This is a 70-year-old gentleman with history of known ischemic or disease with previous bypass surgery. Patient had stent placement of the both right coronary artery and circumflex coronary artery. Patient is now admitted to the hospital with progressive shortness of breath and evidence of congestive heart failure. Echo cardiogram showed impaired LV function. Patient is advised to have cardiac catheterization to rule out progression of ischemic heart disease. Patient has underlying chronic kidney disease. CONSENT:I have discussed the risks, benefits and alternative therapies for the above-mentioned procedure and for both sedation/analgesia as well as necessary blood product administration, if indicated, as they pertain to this patient. The patient has indicated understanding and acceptance of the risks and procedures discussed. PROCEDURE: Patient was brought to the lab in a fasting state. Patient was given some IV sedation. The right groin is infiltrated with lidocaine and right femoral artery was entered using Seldinger technique. A 6-Spanish catheter was left in place and selective coronary arteriography was performed. Patient tolerated the procedure well. Femoral angiogram was performed and Angio-Seal was applied for hemostasis. No immediate complications were noted and patient was transferred to [facility] in a stable condition Conscious Sedation: Versed 1mg Fentanyl 50 g Duration 18minutes HEMODYNAMICS: Aortic pressure is about 110/70. The left ventricular end- diastolic pressure is about 25. There is mild gradient across the aortic valve probably in the range of 10-15 SELECTIVE CORONARY ARTERIOGRAPHY: LEFT MAIN: Normal length and free of occlusive disease THE LEFT ANTERIOR DESCENDING CORONARY ARTERY: . Totally occluded THE LEFT CIRCUMFLEX AND IS CORONARY ARTERY: Patent stents without any significant focal lesions THE RIGHT CORONARY ARTERY: And vessel with patent stents with about 30-40% stenosis in the midportion. The GAYLE graft to the LAD: This is patent throat its length and also at least anastomosis. The LAD beyond the anastomosis has mild disease without any critical lesions LEFT VENTRICULOGRAPHY: Not performed FINAL IMPRESSION: . Stable coronary artery disease with patent GAYLE to the LAD and widely open circumflex and right coronary artery at the previous stented areas PLAN: Continue maximal medical therapy. No intervention needed PROGNOSIS: Guarded
[2020-12-23] MEDS: AMIODARONE 450 MG in DEXTROSE 5% IN WATER 250 ML IV SCH ×2 (14:27)
[2020-12-23 16:41] LABS: Glucose,Whole Blood 131 mg/dL (75-99)
[2020-12-23] MEDS: SODIUM CHLORIDE 0.9% 1,000 ML IV SCH (17:47)
[2020-12-23 20:33] LABS: Glucose,Whole Blood 165 mg/dL (75-99)
[2020-12-23 22:32] LABS: Glucose,Whole Blood 105 mg/dL (75-99)
[2020-12-23 23:00] LABS: Glucose,Whole Blood 149 mg/dL (75-99)
[2020-12-23 23:07] LABS: Anisocytosis Slight; Basophils % (A) 0 %; Eosinophils # (A) 0.1 k/uL (0-0.7); Eosinophils % (A) 2 %; HGB 11.3 gm/dL (13.0-17.5); Lymphocytes # (A) 0.5 k/uL (1.0-4.8); Lymphocytes % (A) 12 %; MCHC 32.2 g/dL (31.0-37.0); MCV 86.8 fL (80.0-100.0); Mean Platelet Volume 7.9; Monocytes # (A) 0.3 k/uL (0-1.0); Monocytes % (A) 7 %; Neutrophils # (A) 3.5 k/uL (1.3-7.7); Neutrophils % (A) 78 %; Platelet Count 174 k/uL (150-450); RBC 4.03 m/uL (4.30-5.90); RDW 16.4 % (11.5-15.5); WBC 4.5 k/uL (3.8-10.6)
--- NOTE | 2020-12-23 23:10 | XR ---
EXAMINATION TYPE: XR chest 1V portable DATE OF EXAM: 12/23/2020 COMPARISON: 12/21/2020 HISTORY: Short of breath TECHNIQUE: FINDINGS: Heart is enlarged. There is some pulmonary vascular congestion. There is blunting of the co stophrenic angles. IMPRESSION: Congestive heart failure. There is decreased pleural fluid on the left side and increased fluid on the right side compared to old exam. Pulmonary congestion is increased.
[2020-12-23 23:11] LABS: Potassium 4.5 mmol/L (3.5-5.1); Total Bilirubin 0.6 mg/dL (0.2-1.3); Total Protein 6.6 g/dL (6.3-8.2)
[2020-12-23 23:34] LABS: ABG Base Excess -3.6 mmol/L; ABG HCO3 21 mmol/L (21-25); ABG Oxygen Saturation 95.8 % (94-97); ABG PCO2 33 mmHg (35-45); ABG PH 7.41 (7.35-7.45); ABG PO2 74 mmHg (83-108); ABG TCO2 22 mmol/L (19-24); Allen Test Performed? Yes
[2020-12-23] MEDS: HYDROcodone/APAP 5-325MG 1 EACH TAB PO PRN (23:57)
--- NOTE | 2020-12-24 00:45 | CT ---
EXAM: CT Head Without Intravenous Contrast CLINICAL HISTORY: ITS.REASON CT Reason: Fall TECHNIQUE: Axial computed tomography images of the head/brain without intravenous contrast. CTDI is 49.27 mGy and DLP is 1114.4 mGy-cm. This CT exam was performed using one or more of the following dose reduction techniques: automated exposure control, adjustment of the mA and/or kV according to patient size, and/or use of iterative reconstruction technique. COMPARISON: No relevant prior studies available. FINDINGS: Brain: No hemorrhage or mass effect. Ventricles: No hydrocephalus. Bones/joints: Unremarkable. Soft tissues: Unremarkable. Sinuses: Unremarkable. Mastoid air cells: Clear. IMPRESSION: No acute hemorrhage, hydrocephalus, or mass effect.
--- NOTE | 2020-12-24 01:12 | P.EN ---
yfn arias called on this patient after he sustained a fall while going to the bathroom, then he was unresponsive and lost pulse. CPR initiated following ACLS protocol, ROSC achieved after one round of CPR, patient regained consciousness and did not require intubation , following commands and answering questions properly , post ROSC EKG showed no acute ST changes, but new 1st degree block , tele did not show any arrhythmia , patient was in PEA the whole time. vital signs stable patient initially admitted for acute CHF exacerbation , ICMP with LVEF 25%, currently without AICD. left heart cath showed no significant occlusions , patient with history of CAD s/p CABG 1999 patient on blood thinners, and due to the fall, CT of the brain is ordered continue current meds , including dobutamine drip check fresh set of labs, CBC, CMP, magnesium due to suspicion of seizure like activity , prolactine level will be obtained, and EEG in AM seizure precautions family updated ICU dr. Azar consulted and updated 33 minutes spent in critical care time in the care of this patient
[2020-12-24 03:52] LABS: Anisocytosis Slight; Basophils % (A) 0 %; Eosinophils % (A) 1 %; HCT 31.6 % (39.0-53.0); HGB 10.2 gm/dL (13.0-17.5); Lymphocytes # (A) 0.2 k/uL (1.0-4.8); Lymphocytes % (A) 5 %; MCHC 32.3 g/dL (31.0-37.0); MCV 86.8 fL (80.0-100.0); Mean Platelet Volume 7.5; Monocytes # (A) 0.3 k/uL (0-1.0); Monocytes % (A) 6 %; Neutrophils # (A) 4.5 k/uL (1.3-7.7); Neutrophils % (A) 88 %; Platelet Count 157 k/uL (150-450); RBC 3.64 m/uL (4.30-5.90); RDW 16.2 % (11.5-15.5); WBC 5.1 k/uL (3.8-10.6)
[2020-12-24 04:04] LABS: Calcium 8.7 mg/dL (8.4-10.2); Magnesium 1.9 mg/dL (1.6-2.3); Potassium 4.6 mmol/L (3.5-5.1)
[2020-12-24 06:07] LABS: Glucose,Whole Blood 127 mg/dL (75-99)
[2020-12-24] MEDS: PANTOPRAZOLE 40 MG TABLET PO SCH (06:09)
[2020-12-24] MEDS: HYDROcodone/APAP 5-325MG 1 EACH TAB PO PRN ×4 (06:09→20:39)
[2020-12-24] MEDS: INSULIN ASPART (NovoLOG) 100 UNIT/ML VIAL SQ SCH ×4 (06:11→20:40)
[2020-12-24 06:31] LABS: Appearance,Urine Cloudy (Clear); Bacteria,Urine Rare /hpf; Bilirubin,Urine Negative (Negative); Blood,Urine Negative (Negative); Color,Urine Yellow; Glucose,Urine (UA) Negative (Negative); Hyaline Casts,Urine 72 /lpf (0-2); Ketones,Urine Negative (Negative); Leukocyte Esterase,Urine Moderate (Negative); Mucus,Urine Rare /hpf; Nitrite,Urine Negative (Negative); PH, Urine 5.5 (5.0-8.0); Protein,Urine 2+ (Negative); RBC,Urine 2 /hpf (0-5); Specific Gravity,Urine 1.022 (1.001-1.035); Squamous Epithelial Cell,Urine 1 /hpf (0-4); Urobilinogen,Urine <2.0 mg/dL (<2.0); WBC,Urine 11 /hpf (0-5)
[2020-12-24] MEDS: allopurinoL 100 MG TAB PO SCH (08:31)
[2020-12-24] MEDS: ATORVASTATIN 80 MG TAB PO SCH (08:32)
[2020-12-24] MEDS: AMIODARONE 200 MG TAB PO SCH ×2 (08:32→20:26)
[2020-12-24] MEDS: CHOLECALCIFEROL 25 MCG (1000 IU) TABLET PO SCH (08:33)
[2020-12-24] MEDS: ISOSORBIDE MONONITRATE ER 30 MG TAB.ER.24H PO SCH (08:33)
[2020-12-24] MEDS: METOPROLOL TARTRATE 25 MG TAB PO SCH (08:33)
[2020-12-24] MEDS: TAMSULOSIN 0.4 MG CAP.ER.24H PO SCH ×2 (08:34→20:26)
[2020-12-24] MEDS: ASPIRIN 81 MG PO SCH (08:35)
[2020-12-24] MEDS: CLOPIDOGREL 75 MG TAB PO SCH (08:35)
[2020-12-24] MEDS: ALBUTEROL NEBULIZED 2.5 MG/3 ML INHALATION PRN ×4 (08:50→19:46)
[2020-12-24 09:40] LABS: Prolactin 8.1 ng/mL (2.1-17.7)
[2020-12-24] MEDS ORDERED: FUROSEMIDE 10 MG/ML 4 ML VIAL IV STA (10:57)
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
--- NOTE | 2020-12-24 11:34 | P.PN ---
Subjective Patient is seen in follow-up for acute kidney injury on chronic kidney disease. Renal function is fairly stable. She is a little better today. No chest pain or shortness of breath. Last night he sustained a fall while going to the bathroom and was unresponsive. [facility] was called and he regained consciousness after 1 round of CPR. There was also concern for seizure episode. He is currently in ICU. Awake and alert. He is on dobutamine drip and also receiving normal saline at 50 mL an hour. Vital signs are stable. General: The patient appeared well nourished and normally developed. HEENT: Head exam is unremarkable. Neck is without jugular venous distension. LUNGS: Breath sounds decreased. HEART: Rate and Rhythm are regular. ABDOMEN: Soft, nontender. EXTREMITITES: 1+ edema left lower extremity. Trace edema right lower extremity. Objective - Vital Signs Vital signs: Vital Signs Temp 98.3 F 12/24/20 08:00 Pulse 64 12/24/20 11:00 Resp 24 12/24/20 11:00 BP 113/73 12/24/20 11:00 Pulse Ox 94 L 12/24/20 11:00 Intake & Output 12/23/20 12/24/20 12/24/20 18:59 06:59 18:59 Intake Total 2222.344 500 250 Output Total 378 350 100 Balance 1844.344 150 150 Weight 93.36 kg 95.3 kg Intake: IV 100 Sodium Chloride 0.9% 1, 100 000 ml @ 50 mls/hr IV . Q20H [facility] Rx#:[id number] Intake, IV Titration 1626.344 300 50 Amount Amiodarone 450 mg In 480 Dextrose 5% in Water 250 ml @ 0.5 MG/MIN 16.667 mls/hr IV .Q15H [facility] Rx#: [id number] DOBUTamine DRIP 500 mg In 0.468 Dextrose/Water 1 250ml. bag @ 3 MCG/KG/MIN 8.424 mls/hr IV .Q24H [facility] Rx#: [id number] Heparin Sod,Pork in 0.45% 145.876 NaCl 25,000 unit In 0.45 % NaCl 1 250ml.bag @ 12 UNITS/KG/HR 11.028 mls/hr IV .[id number] [facility] Rx#: [id number] IV Fluid Continuation 400 400 ml @ 0 mls/hr IV .ST[facility]- [facility] Rx#:[id number] Sodium Chloride 0.9% 1, 600 300 50 000 ml @ 50 mls/hr IV . Q20H [facility] Rx#:[id number] Oral 596 200 100 Output: Urine 378 350 100 Other: Voiding Method Toilet Urinal Urinal # Voids 1 - Labs CBC & Chem 7: 12/24/20 03:35 12/24/20 03:35 Labs: Abnormal Lab Results - Last 24 Hours (Table) 12/23/20 12/23/20 12/23/20 Range/Units 11:56 16:40 20:31 RBC (4.30-5.90) m/uL Hgb (13.0-17.5) gm/dL Hct (39.0-53.0) % RDW (11.5-15.5) % Lymphocytes # (1.0-4.8) k/uL ABG pCO2 (35-45) mmHg ABG pO2 (83-108) mmHg Sodium (137-145) mmol/L Carbon Dioxide (22-30) mmol/L BUN (9-20) mg/dL Creatinine (0.66-1.25) mg/dL Glucose (74-99) mg/dL POC Glucose (mg/dL) 156 H 131 H 165 H (75-99) mg/dL Plasma Lactic Acid Patrick (0.7-2.0) mmol/L Urine Protein (Negative) Ur Leukocyte Esterase (Negative) Urine WBC (0-5) /hpf Urine Bacteria (None) /hpf Hyaline Casts (0-2) /lpf Urine Mucus (None) /hpf 12/23/20 12/23/20 12/23/20 Range/Units 22:30 22:45 22:45 RBC 4.03 L (4.30-5.90) m/uL Hgb 11.3 L (13.0-17.5) gm/dL Hct 35.0 L (39.0-53.0) % RDW 16.4 H (11.5-15.5) % Lymphocytes # 0.5 L (1.0-4.8) k/uL ABG pCO2 (35-45) mmHg ABG pO2 (83-108) mmHg Sodium 135 L (137-145) mmol/L Carbon Dioxide 18 L (22-30) mmol/L BUN 35 H (9-20) mg/dL Creatinine 2.14 H (0.66-1.25) mg/dL Glucose 120 H (74-99) mg/dL POC Glucose (mg/dL) 105 H (75-99) mg/dL Plasma Lactic Acid Patrick (0.7-2.0) mmol/L Urine Protein (Negative) Ur Leukocyte Esterase (Negative) Urine WBC (0-5) /hpf Urine Bacteria (None) /hpf Hyaline Casts (0-2) /lpf Urine Mucus (None) /hpf 12/23/20 12/23/20 12/23/20 Range/Units 22:45 22:58 23:29 RBC (4.30-5.90) m/uL Hgb (13.0-17.5) gm/dL Hct (39.0-53.0) % RDW (11.5-15.5) % Lymphocytes # (1.0-4.8) k/uL ABG pCO2 33 L (35-45) mmHg ABG pO2 74 L (83-108) mmHg Sodium (137-145) mmol/L Carbon Dioxide (22-30) mmol/L BUN (9-20) mg/dL Creatinine (0.66-1.25) mg/dL Glucose (74-99) mg/dL POC Glucose (mg/dL) 149 H (75-99) mg/dL Plasma Lactic Acid Patrick 3.2 H* (0.7-2.0) mmol/L Urine Protein (Negative) Ur Leukocyte Esterase (Negative) Urine WBC (0-5) /hpf Urine Bacteria (None) /hpf Hyaline Casts (0-2) /lpf Urine Mucus (None) /hpf 12/24/20 12/24/20 12/24/20 Range/Units 03:35 03:35 05:40 RBC 3.64 L (4.30-5.90) m/uL Hgb 10.2 L (13.0-17.5) gm/dL Hct 31.6 L (39.0-53.0) % RDW 16.2 H (11.5-15.5) % Lymphocytes # 0.2 L (1.0-4.8) k/uL ABG pCO2 (35-45) mmHg ABG pO2 (83-108) mmHg Sodium 135 L (137-145) mmol/L Carbon Dioxide 19 L (22-30) mmol/L BUN 38 H (9-20) mg/dL Creatinine 2.14 H (0.66-1.25) mg/dL Glucose 126 H (74-99) mg/dL POC Glucose (mg/dL) (75-99) mg/dL Plasma Lactic Acid Patrick (0.7-2.0) mmol/L Urine Protein 2+ H (Negative) Ur Leukocyte Esterase Moderate H (Negative) Urine WBC 11 H (0-5) /hpf Urine Bacteria Rare H (None) /hpf Hyaline Casts 72 H (0-2) /lpf Urine Mucus Rare H (None) /hpf 12/24/20 Range/Units 06:05 RBC (4.30-5.90) m/uL Hgb (13.0-17.5) gm/dL Hct (39.0-53.0) % RDW (11.5-15.5) % Lymphocytes # (1.0-4.8) k/uL ABG pCO2 (35-45) mmHg ABG pO2 (83-108) mmHg Sodium (137-145) mmol/L Carbon Dioxide (22-30) mmol/L BUN (9-20) mg/dL Creatinine (0.66-1.25) mg/dL Glucose (74-99) mg/dL POC Glucose (mg/dL) 127 H (75-99) mg/dL Plasma Lactic Acid Patrick (0.7-2.0) mmol/L Urine Protein (Negative) Ur Leukocyte Esterase (Negative) Urine WBC (0-5) /hpf Urine Bacteria (None) /hpf Hyaline Casts (0-2) /lpf Urine Mucus (None) /hpf Microbiology - Last 24 Hours (Table) 12/24/20 05:40 Urine Culture - Preliminary Urine,Clean Catch Assessment and Plan Plan: Assessment: 1. Acute kidney injury secondary to ATN secondary to cardiorenal syndrome. Creatinine slightly worse at 2.14 today. Patient also received IV contrast dye on December 23 for cardiac catheterization. 2. Acute on chronic systolic CHF with ejection fraction of 20%. 3. Chronic kidney disease stage IIIa with baseline creatinine near 1.3. 4. Metabolic acidosis secondary to acute kidney injury and IV fluids. 5. Volume overload. Plan: Maintain dobutamine per cardiology. Lasix 40 mg IV once today. Stop normal saline. Encouraged oral intake. Avoid nephrotoxins. Continue to monitor renal function and urine output. Add oral bicarbonate.
[2020-12-24] MEDS: DOBUTamine DRIP 500 MG in DEXTROSE/WATER 1 250ML.BAG IV SCH (11:37)
[2020-12-24] MEDS: SODIUM BICARBONATE TAB 650 MG TAB PO SCH ×2 (11:51→20:26)
[2020-12-24 12:02] LABS: Glucose,Whole Blood 153 mg/dL (75-99)
[2020-12-24] MEDS ORDERED: bisacodyL 5 MG TABLET.DR PO PRN (12:12)
--- NOTE | 2020-12-24 12:18 | P.PN ---
Subjective Progress Note Date: 12/24/20 Patient was transferred to the ICU last night. He was apparently found on the floor in his room and thought to have no pulse and CPR was started and sewn after patient was awake and alert. Nursing staff informed me that cardiology reviewed campus monitor and there was no significant arrhythmia or PEA to suggest a cardiac arrest. Patient is currently in the ICU. He is doing fairly well. He denies any chest pain or shortness of breath. He is having some rib pain in his side. Objective - Vital Signs Vital signs: Vital Signs Temp 98.3 F 12/24/20 08:00 Pulse 64 12/24/20 11:00 Resp 24 12/24/20 11:00 BP 113/73 12/24/20 11:00 Pulse Ox 94 L 12/24/20 11:00 Intake & Output 12/23/20 12/24/20 12/24/20 18:59 06:59 18:59 Intake Total 2222.344 500 250 Output Total 378 350 100 Balance 1844.344 150 150 Weight 93.36 kg 95.3 kg Intake: IV 100 Sodium Chloride 0.9% 1, 100 000 ml @ 50 mls/hr IV . Q20H [facility] Rx#:[id number] Intake, IV Titration 1626.344 300 50 Amount Amiodarone 450 mg In 480 Dextrose 5% in Water 250 ml @ 0.5 MG/MIN 16.667 mls/hr IV .Q15H [facility] Rx#: [id number] DOBUTamine DRIP 500 mg In 0.468 Dextrose/Water 1 250ml. bag @ 3 MCG/KG/MIN 8.424 mls/hr IV .Q24H [facility] Rx#: [id number] Heparin Sod,Pork in 0.45% 145.876 NaCl 25,000 unit In 0.45 % NaCl 1 250ml.bag @ 12 UNITS/KG/HR 11.028 mls/hr IV .[id number] [facility] Rx#: [id number] IV Fluid Continuation 400 400 ml @ 0 mls/hr IV .STK- MED ONE Rx#:[id number] Sodium Chloride 0.9% 1, 600 300 50 000 ml @ 50 mls/hr IV . Q20H [facility] Rx#:[id number] Oral 596 200 100 Output: Urine 378 350 100 Other: Voiding Method Toilet Urinal Urinal # Voids 1 - Exam General: The patient is awake and alert, in no distress Eye: there is normal conjunctiva bilaterally. Neck: The neck is supple, there is no JVD. Cardiovascular: Normal S1-S2, no S3-S4, no murmurs. Respiratory: Lungs with scattered crackles Gastrointestinal: Abdomen is soft, nontender Musculoskeletal: There is +1 pedal edema. Neurological:. Speech is normal. Skin: Skin is warm and dry - Labs CBC & Chem 7: 12/24/20 03:35 12/24/20 03:35 Labs: Abnormal Lab Results - Last 24 Hours (Table) 12/23/20 12/23/20 12/23/20 Range/Units 16:40 20:31 22:30 RBC (4.30-5.90) m/uL Hgb (13.0-17.5) gm/dL Hct (39.0-53.0) % RDW (11.5-15.5) % Lymphocytes # (1.0-4.8) k/uL ABG pCO2 (35-45) mmHg ABG pO2 (83-108) mmHg Sodium (137-145) mmol/L Carbon Dioxide (22-30) mmol/L BUN (9-20) mg/dL Creatinine (0.66-1.25) mg/dL Glucose (74-99) mg/dL POC Glucose (mg/dL) 131 H 165 H 105 H (75-99) mg/dL Plasma Lactic Acid Patrick (0.7-2.0) mmol/L Urine Protein (Negative) Ur Leukocyte Esterase (Negative) Urine WBC (0-5) /hpf Urine Bacteria (None) /hpf Hyaline Casts (0-2) /lpf Urine Mucus (None) /hpf 12/23/20 12/23/20 12/23/20 Range/Units 22:45 22:45 22:45 RBC 4.03 L (4.30-5.90) m/uL Hgb 11.3 L (13.0-17.5) gm/dL Hct 35.0 L (39.0-53.0) % RDW 16.4 H (11.5-15.5) % Lymphocytes # 0.5 L (1.0-4.8) k/uL ABG pCO2 (35-45) mmHg ABG pO2 (83-108) mmHg Sodium 135 L (137-145) mmol/L Carbon Dioxide 18 L (22-30) mmol/L BUN 35 H (9-20) mg/dL Creatinine 2.14 H (0.66-1.25) mg/dL Glucose 120 H (74-99) mg/dL POC Glucose (mg/dL) (75-99) mg/dL Plasma Lactic Acid Patrick 3.2 H* (0.7-2.0) mmol/L Urine Protein (Negative) Ur Leukocyte Esterase (Negative) Urine WBC (0-5) /hpf Urine Bacteria (None) /hpf Hyaline Casts (0-2) /lpf Urine Mucus (None) /hpf 12/23/20 12/23/20 12/24/20 Range/Units 22:58 23:29 03:35 RBC 3.64 L (4.30-5.90) m/uL Hgb 10.2 L (13.0-17.5) gm/dL Hct 31.6 L (39.0-53.0) % RDW 16.2 H (11.5-15.5) % Lymphocytes # 0.2 L (1.0-4.8) k/uL ABG pCO2 33 L (35-45) mmHg ABG pO2 74 L (83-108) mmHg Sodium (137-145) mmol/L Carbon Dioxide (22-30) mmol/L BUN (9-20) mg/dL Creatinine (0.66-1.25) mg/dL Glucose (74-99) mg/dL POC Glucose (mg/dL) 149 H (75-99) mg/dL Plasma Lactic Acid Patrick (0.7-2.0) mmol/L Urine Protein (Negative) Ur Leukocyte Esterase (Negative) Urine WBC (0-5) /hpf Urine Bacteria (None) /hpf Hyaline Casts (0-2) /lpf Urine Mucus (None) /hpf 12/24/20 12/24/20 12/24/20 Range/Units 03:35 05:40 06:05 RBC (4.30-5.90) m/uL Hgb (13.0-17.5) gm/dL Hct (39.0-53.0) % RDW (11.5-15.5) % Lymphocytes # (1.0-4.8) k/uL ABG pCO2 (35-45) mmHg ABG pO2 (83-108) mmHg Sodium 135 L (137-145) mmol/L Carbon Dioxide 19 L (22-30) mmol/L BUN 38 H (9-20) mg/dL Creatinine 2.14 H (0.66-1.25) mg/dL Glucose 126 H (74-99) mg/dL POC Glucose (mg/dL) 127 H (75-99) mg/dL Plasma Lactic Acid Patrick (0.7-2.0) mmol/L Urine Protein 2+ H (Negative) Ur Leukocyte Esterase Moderate H (Negative) Urine WBC 11 H (0-5) /hpf Urine Bacteria Rare H (None) /hpf Hyaline Casts 72 H (0-2) /lpf Urine Mucus Rare H (None) /hpf 12/24/20 Range/Units 12:00 RBC (4.30-5.90) m/uL Hgb (13.0-17.5) gm/dL Hct (39.0-53.0) % RDW (11.5-15.5) % Lymphocytes # (1.0-4.8) k/uL ABG pCO2 (35-45) mmHg ABG pO2 (83-108) mmHg Sodium (137-145) mmol/L Carbon Dioxide (22-30) mmol/L BUN (9-20) mg/dL Creatinine (0.66-1.25) mg/dL Glucose (74-99) mg/dL POC Glucose (mg/dL) 153 H (75-99) mg/dL Plasma Lactic Acid Patrick (0.7-2.0) mmol/L Urine Protein (Negative) Ur Leukocyte Esterase (Negative) Urine WBC (0-5) /hpf Urine Bacteria (None) /hpf Hyaline Casts (0-2) /lpf Urine Mucus (None) /hpf Microbiology - Last 24 Hours (Table) 12/24/20 05:40 Urine Culture - Preliminary Urine,Clean Catch Assessment and Plan Assessment: This is a 70-year-old male with past medical history noted below who presented to the emergency room with worsening shortness of breath and orthopnea. Patient was evaluated in the ER and admitted to the hospital for further management of his medical problems noted below. 1. Acute systolic heart failure exacerbation: Echocardiogram showed EF of 20- 25%. Currently on dobutamine drip. Started on IV Lasix since admission with good response. Lasix was discontinued on 12/23 secondary to worsening kidney function. We will continue strict I's and O's and daily weights. 2. Acute hypoxic respiratory failure: Requiring 2 L of oxygen via nasal cannula. Chest x-ray showed evidence of fluid overload and pulmonary edema. COVID-19 screen negative. The chest x-ray showed improved congestion 3. Troponin elevation: Most likely non-thrombotic troponin leak secondary to underlying CHF. Patient denies any chest pain. 12-lead EKG showed no acute ischemic changes in the emergency room. Patient was started on IV heparin drip by cardiology. He underwent left heart catheterization during this admission showing patent graft and no in-stent restenosis. Continue dual antiplatelet therapy. Echocardiogram showed diffuse akinesia involving left ventricular wall 4. New onset atrial fibrillation, and started on IV amiodarone drip by cardiology. Currently transitioned to oral amiodarone and anticoagulation with Eliquis 5. Acute kidney failure on stage IIIB chronic kidney disease, baseline c reatinine around 1.4. Nephrology consulted for further evaluation. 6. Coronary artery disease with history of CABG in year 1999 and subsequent stent placement most recently in June 2019 with drug-eluting stent to first dose marginal branch of circumflex and proximal and mid circumflex coronary artery. On dual antiplatelet therapy. 7. Type 2 diabetes: Hold home dose of metformin and continue sliding scale insulin 8. Essential hypertension: Blood pressure within acceptable range. Continue home regimen 9. Hyperlipidemia: On Lipitor 10. Ischemic cardiomyopathy, patient might be a candidate for AICD. Will discuss further with cardiology. 11. CODE STATUS: Patient is full code Today, I reviewed his medication list and lab work results. Today, I spoke to his daughter Latoya over the phone. I updated her about her father's condition. I answered all of her questions to her satisfaction.
--- NOTE | 2020-12-24 14:56 | PN ---
PROGRESS NOTE Lester Wright is a gentleman who was on the floor yesterday. Apparently he had a cardiac catheterization which revealed that his grafts were patent and he is known to have previous bypass surgery and PCI. Apparently, his bypass grafts were patent. The GAYLE to LAD was patent and the ambler circumflex and RCA were widely patent at the previous stented segments. This catheterization was performed on 12/19/2020, was advised medical therapy but yesterday he developed an episode of unresponsiveness of unclear etiology. He was also in atrial fib, converted to sinus rhythm. It is unclear what the episode was whether it was a vasovagal episode or not is unclear. However, he is not able to remember the episode and looking at the clinical axis. He did not have any significant bradyarrhythmia. The details are very sketchy. I am recommending that given his bradycardia, we will decrease amiodarone from 400 to 200 mg b.i.d. and decrease the metoprolol to just 50 mg daily and observe him and monitor him closely. I will also discontinue the aspirin and leave him on a combination of Plavix as well as Eliquis. Aspirin will therefore be discontinued. Blood pressure today is 108/70, pulse rate is 56 per minute. JVD 1 cm. No carotid bruit. S1, S2 heard normally, short systolic murmur. Lungs reveal fair air entry. Abdomen is soft. Lower extremities reveal diminished pulses. IMPRESSION: 1. Patient is maintaining sinus rhythm, has history of atrial fibrillation. 2. Coronary artery disease with patent GAYLE to LAD and vein grafts. RECOMMENDATION: I will discontinue aspirin, leave him on a combination of Plavix and apixaban. I will also decrease amiodarone and beta cherri and continue monitoring. Discussed my thoughts with the patient and also spoke to his daughter by phone. MMODL / IJN: [id number] /
[2020-12-24 18:10] LABS: Glucose,Whole Blood 179 mg/dL (75-99)
--- NOTE | 2020-12-24 18:30 | EEG ---
ELECTROENCEPHALOGRAM REPORT DATE OF SERVICE: 12/24/2020. CLINICAL HISTORY: This is a 70-year-old gentleman with a reported episode of seizure-like activity. The video EEG is obtained to evaluate for seizure and epileptiform activity. EEG TYPE: A routine 21-channel EEG is performed with video using the 10/20 electrode placement system. DESCRIPTION: Only wakefulness is obtained. During wakefulness there is a posterior-dominant rhythm of low to moderate voltage, reactive, well modulated, of 8.5 to 9 hertz activity. There is no physiological stage II sleep. There is no focal slowing. Interictal and ictal: None. ACTIVATION PROCEDURE: Photic stimulation did not evoke a posterior driving response. There wis no abnormality during the photic stimulation. Hyperventilation is not performed. CLINICAL INTERPRETATION: This is a normal routine EEG. There are no focal slowing, epileptiform discharges or seizure on the EEG. Clinical correlation is recommended. ILIA / BRENDA: [id number] / MTDD
[2020-12-24] MEDS: polyethylene glycoL 3350 17 GM POWD.PACK PO SCH (20:26)
[2020-12-24] MEDS: APIXABAN 5 MG TAB PO SCH (20:26)
[2020-12-24 20:38] LABS: Glucose,Whole Blood 157 mg/dL (75-99)
[2020-12-25 03:46] LABS: Anisocytosis Slight; Basophils % (A) 0 %; Eosinophils # (A) 0.1 k/uL (0-0.7); Eosinophils % (A) 1 %; HCT 30.7 % (39.0-53.0); HGB 10.4 gm/dL (13.0-17.5); Lymphocytes # (A) 0.2 k/uL (1.0-4.8); Lymphocytes % (A) 6 %; MCH 29.5 pg (25.0-35.0); MCV 86.8 fL (80.0-100.0); Mean Platelet Volume 7.7; Monocytes # (A) 0.4 k/uL (0-1.0); Monocytes % (A) 10 %; Neutrophils # (A) 2.8 k/uL (1.3-7.7); Neutrophils % (A) 81 %; Platelet Count 147 k/uL (150-450); RBC 3.53 m/uL (4.30-5.90); RDW 16.4 % (11.5-15.5); WBC 3.5 k/uL (3.8-10.6)
[2020-12-25 04:00] LABS: Potassium 4.3 mmol/L (3.5-5.1)
[2020-12-25] MEDS: PANTOPRAZOLE 40 MG TABLET PO SCH (06:43)
[2020-12-25 06:46] LABS: Glucose,Whole Blood 127 mg/dL (75-99)
[2020-12-25] MEDS: HYDROcodone/APAP 5-325MG 1 EACH TAB PO PRN (06:47)
[2020-12-25] MEDS: INSULIN ASPART (NovoLOG) 100 UNIT/ML VIAL SQ SCH ×4 (06:59→21:40)
[2020-12-25] MEDS: ATORVASTATIN 80 MG TAB PO SCH (08:29)
[2020-12-25] MEDS: ISOSORBIDE MONONITRATE ER 30 MG TAB.ER.24H PO SCH (08:29)
[2020-12-25] MEDS: CLOPIDOGREL 75 MG TAB PO SCH (08:29)
[2020-12-25] MEDS: CHOLECALCIFEROL 25 MCG (1000 IU) TABLET PO SCH (08:29)
[2020-12-25] MEDS: METOPROLOL TARTRATE 50 MG TAB PO SCH ×2 (08:29→21:43)
[2020-12-25] MEDS: APIXABAN 5 MG TAB PO SCH ×2 (08:30→21:43)
[2020-12-25] MEDS: TAMSULOSIN 0.4 MG CAP.ER.24H PO SCH ×2 (08:30→21:43)
[2020-12-25] MEDS: SODIUM BICARBONATE TAB 650 MG TAB PO SCH ×2 (08:30→21:43)
[2020-12-25] MEDS: allopurinoL 100 MG TAB PO SCH (08:30)
[2020-12-25] MEDS: AMIODARONE 200 MG TAB PO SCH ×2 (08:30→21:43)
[2020-12-25] MEDS: ALBUTEROL NEBULIZED 2.5 MG/3 ML INHALATION PRN (08:57)
[2020-12-25] MEDS ORDERED: METOPROLOL TARTRATE 50 MG TAB PO SCH (09:00)
--- NOTE | 2020-12-25 09:25 | PN ---
PROGRESS NOTE Mr. Wright is in sinus rhythm. Complains of some right lateral rib area tenderness. He felt his rib pop. I am recommending some rib x-rays. He has not had any syncope or near syncope. His heart rate is better. I am recommending increase the metoprolol to 50 mg b.i.d. Vitals are stable. S1, S2 heard normally, short systolic murmur noted. Lungs reveal improved air entry. There is some splinting, possible some tenderness over the right lateral ribs. I am recommending a rib x-ray, same medications, increased activity and move him to telemetry unit. MMODL / IJN: [id number] /
[2020-12-25] MEDS ORDERED: LACTULOSE 20 GM/30 ML CUP PO ONE (10:13)
--- NOTE | 2020-12-25 10:36 | P.PN ---
Subjective Progress Note Date: 12/25/20 Principal diagnosis: PEA, unresponsiveness 70-year-old white male patient with history of ischemic cardiomyopathy with EF of 20-25% currently without AICD, coronary artery disease with previous of coronary artery bypass grafting in 1999, and subsequent stent placement most recently in May 2019, diabetes mellitus type 2, previous history of myocardial infarction, hypertension, hyperlipidemia, osteoarthritis, lifetime nonsmoker who came into the emergency department on 12/19/2020 complaining of shortness of breath, wheezing, orthopnea. His initial chest x-ray showed car diomegaly which was mild, mild vascular congestion/pulmonary edema, and small bilateral pleural effusions. Patient also reported increased lower extremity edema, however did not have any chest pain or chest pressure, he was evaluated by cardiology, he did have elevated troponins of 0.077, and 0.078, his admission proBNP was 10,700. He was given a diagnosis of acute exacerbation of chronic CHF with systolic dysfunction, he was started on IV diuretics. he underwent cardiac catheterization on 12/23/2020 and was found to have stable coronary artery disease with patent GAYLE to the LAD and a widely open circumflex and right coronary artery at the previously stented areas. Medical therapy was r ecommended. However on 12/23/2020 at around 2230 patient had gotten up to the bathroom, and had a fall, he was then unresponsive, and lost pulse. When he was connected to the monitor patient a core into the code sheet was in normal sinus rhythm with first-degree AV block. Brief CPR was given, with return of spontaneous circulation, patient does not require any epinephrine, or intubation, patient subsequently came to, there was a suspicion of seizure-like activity. Patient was transferred to the intensive care unit for further monitoring. In the ICU she was started on dobutamine drip at 3 units per kilo per minute, his point on the same infusing at 50 ML per hour, his chest x-ray shows changes consistent with pulmonary vessel congestion, CHF. Brain CT showed no acute intracranial abnormality. He remains in sinus mechanism, with a controlled rate, no arrhythmias since admission to the intensive care unit, he remains on gentle IV hydration with 0.9 at 50 ML per hour, his renal function is stable since yesterday, with BUN of 38 and creatinine of 2.14. His urine output is around 50-100 ML per hour, his oxygen requirement is currently at 2 L, his pulse ox is 96%, no signs of any acute respiratory distress at this time, no complaints of chest pain. No fever, blood pressures 131/74. On 12/25/2000 patient in follow-up in intensive care unit, he is awake and alert, oriented 3, breathing comfortably, no acute events overnight, dysrhythmias or bradycardias. He is currently on room air, pulse ox 95%, does complain of some chest wall soreness from previous CPR, exacerbated with movement. No cough or congestion, low-grade fever this morning temp of 99.3F, he is in sinus mechanism, his 0.9 normal saline is running at 10 ML per hour, rib x-rays pending. No episodes of syncope, neurology is following. Brain CT showed no acute hemorrhage hydrocephalus or mass effect, EEG did not show seizures, no focal slowing or epileptiform discharges. His labs have been reviewed, white blood cell count is 3.5, hemoglobin is 10.4, sodium is 133, potassium is 4.3, chloride is 102, CO2 is 21, BUN is 42, creatinine is 2.46. BNP is improved is down to 7250, urinalysis shows moderate, 2+ protein, rare bacteria, culture has been sent, patient has had no fever or chills, no urinary symptoms. Objective - Vital Signs Vital signs: Vital Signs Temp 99.3 F 12/25/20 08:00 Pulse 68 12/25/20 09:08 Resp 25 H 12/25/20 09:00 BP 125/85 12/25/20 09:00 Pulse Ox 95 12/25/20 09:00 Intake & Output 12/24/20 12/25/20 12/25/20 18:59 06:59 18:59 Intake Total 450 400 240 Output Total 250 475 100 Balance 200 -75 140 Weight 99.4 kg Intake: IV 100 Sodium Chloride 0.9% 1, 100 000 ml @ 50 mls/hr IV . Q20H [facility] Rx#:[id number] Intake, IV Titration 50 Amount Sodium Chloride 0.9% 1, 50 000 ml @ 50 mls/hr IV . Q20H [facility] Rx#:[id number] Oral 300 400 240 Output: Urine 250 475 100 Other: Voiding Method Urinal Urinal Urinal - Exam GENERAL EXAM: Alert, very pleasant, 70-year-old white male,on room air he pulse ox of 96% comfortable in no apparent distress. HEAD: Normocephalic/atraumatic. EYES: Normal reaction of pupils, equal size. Conjunctiva pink, sclera white. NOSE: Clear with pink turbinates. THROAT: No erythema or exudates. NECK: No masses, no JVD, no thyroid enlargement, no adenopathy. CHEST: No chest wall deformity. Symmetrical expansion. LUNGS: Equal air entry with mild crackles, no wheeze, rhonchi or dullness. CVS: Regular rate and rhythm, normal S1 and S2, no gallops, no murmurs, no rubs ABDOMEN: Soft, nontender. No hepatosplenomegaly, normal bowel sounds, no guarding or rigidity. EXTREMITIES: No clubbing, no edema, no cyanosis, 2+ pulses and upper and lower extremities. MUSCULOSKELETAL: Muscle strength and tone normal. SPINE: No scoliosis or deformity SKIN: No rashes CENTRAL NERVOUS SYSTEM: Alert and oriented -3. No focal deficits, tone is n ormal in all 4 extremities. PSYCHIATRIC: Alert and oriented -3. Appropriate affect. Intact judgment and insight. - Labs CBC & Chem 7: 12/25/20 03:19 12/25/20 03:19 Labs: Abnormal Lab Results - Last 24 Hours (Table) 12/24/20 12/24/20 12/24/20 Range/Units 12:00 18:08 20:36 WBC (3.8-10.6) k/uL RBC (4.30-5.90) m/uL Hgb (13.0-17.5) gm/dL Hct (39.0-53.0) % RDW (11.5-15.5) % Plt Count (150-450) k/uL Lymphocytes # (1.0-4.8) k/uL Sodium (137-145) mmol/L Carbon Dioxide (22-30) mmol/L BUN (9-20) mg/dL Creatinine (0.66-1.25) mg/dL Glucose (74-99) mg/dL POC Glucose (mg/dL) 153 H 179 H 157 H (75-99) mg/dL 12/25/20 12/25/20 12/25/20 Range/Units 03:19 03:19 06:44 WBC 3.5 L (3.8-10.6) k/uL RBC 3.53 L (4.30-5.90) m/uL Hgb 10.4 L (13.0-17.5) gm/dL Hct 30.7 L (39.0-53.0) % RDW 16.4 H (11.5-15.5) % Plt Count 147 L (150-450) k/uL Lymphocytes # 0.2 L (1.0-4.8) k/uL Sodium 133 L (137-145) mmol/L Carbon Dioxide 21 L (22-30) mmol/L BUN 42 H (9-20) mg/dL Creatinine 2.46 H (0.66-1.25) mg/dL Glucose 121 H (74-99) mg/dL POC Glucose (mg/dL) 127 H (75-99) mg/dL Microbiology - Last 24 Hours (Table) 12/24/20 05:40 Urine Culture - Preliminary Urine,Clean Catch Assessment and Plan Plan: Assessment: #1. Acute hypoxic respiratory failure related to acute exacerbation of systolic CHF #2. Cardiac arrest, PEA requiring brief CPR with return of spontaneous cir culation 12/23/2020 related to the above, possibility of seizures is not excluded, neurology consultation has been requested. CT brain shows no acute abnormality. EEG was within normal limits, no evidence of seizures or epileptiform discharges or background slowing #3. Acute kidney injury #4. Coronary artery disease, with previous bypass grafting and subsequent stenting. Patient underwent cardiac catheterization on 12/23/2020 showing stable chronic coronary artery disease with patent GAYLE to the LAD and circumflex and RCA stents patent #5. Ischemic cardiomyopathy #6. Nonsmoker #7. Diabetes mellitus #8. Troponin leak rule out possibility of non-ST elevated OR #9. Onset atrial fibrillation started on IV amiodarone #10. Hypertension #11. Hyperlipidemia Plan: Patient has had no acute events overnight, no syncopal episodes, no seizure, no further dysrhythmias. He is breathing comfortably, complaining of some rib pain likely related to recent history of CPR. We'll obtain bilateral rib x-ray. Patient is on room air, maintaining stable oxygenation, labs have been noted, EEG was within normal limits, brain CT showed no acute abnormality, neurology evaluation is pending. From pulmonary/critical care perspective patient is stable to go out of the intensive care unit to selective care today. I performed a history & physical examination of the patient and discussed their management with my nurse practitioner, Ariadna Cadena. I reviewed the nurse practitioner's note and agree with the documented findings and plan of care. Lung sounds are positive for diminished breath sounds.. The findings and the impression was discussed with the patient. I attest to the documentation by the nurse practitioner. Time with Patient: Less than 30
[2020-12-25] MEDS ORDERED: FUROSEMIDE 10 MG/ML 4 ML VIAL IV STA (10:38)
--- NOTE | 2020-12-25 10:38 | P.PN ---
Subjective Patient is seen in follow-up for acute kidney injury on chronic kidney disease. Renal function a little worse today. No chest pain or shortness of breath. Remains off IV fluids. Dobutamine stopped December 24. Vital signs are stable. General: The patient appeared well nourished and normally developed. HEENT: Head exam is unremarkable. Neck is without jugular venous distension. LUNGS: Breath sounds decreased. HEART: Rate and Rhythm are regular. ABDOMEN: Soft, nontender. EXTREMITITES: 1+ edema left lower extremity. Trace edema right lower extremity. Objective - Vital Signs Vital signs: Vital Signs Temp 99.3 F 12/25/20 08:00 Pulse 68 12/25/20 09:08 Resp 25 H 12/25/20 09:00 BP 125/85 12/25/20 09:00 Pulse Ox 95 12/25/20 09:00 Intake & Output 12/24/20 12/25/20 12/25/20 18:59 06:59 18:59 Intake Total 450 400 240 Output Total 250 475 100 Balance 200 -75 140 Weight 99.4 kg Intake: IV 100 Sodium Chloride 0.9% 1, 100 000 ml @ 50 mls/hr IV . Q20H [facility] Rx#:[id number] Intake, IV Titration 50 Amount Sodium Chloride 0.9% 1, 50 000 ml @ 50 mls/hr IV . Q20H [facility] Rx#:[id number] Oral 300 400 240 Output: Urine 250 475 100 Other: Voiding Method Urinal Urinal Urinal - Labs CBC & Chem 7: 12/25/20 03:19 12/25/20 03:19 Labs: Abnormal Lab Results - Last 24 Hours (Table) 12/24/20 12/24/20 12/24/20 Range/Units 12:00 18:08 20:36 WBC (3.8-10.6) k/uL RBC (4.30-5.90) m/uL Hgb (13.0-17.5) gm/dL Hct (39.0-53.0) % RDW (11.5-15.5) % Plt Count (150-450) k/uL Lymphocytes # (1.0-4.8) k/uL Sodium (137-145) mmol/L Carbon Dioxide (22-30) mmol/L BUN (9-20) mg/dL Creatinine (0.66-1.25) mg/dL Glucose (74-99) mg/dL POC Glucose (mg/dL) 153 H 179 H 157 H (75-99) mg/dL 12/25/20 12/25/20 12/25/20 Range/Units 03:19 03:19 06:44 WBC 3.5 L (3.8-10.6) k/uL RBC 3.53 L (4.30-5.90) m/uL Hgb 10.4 L (13.0-17.5) gm/dL Hct 30.7 L (39.0-53.0) % RDW 16.4 H (11.5-15.5) % Plt Count 147 L (150-450) k/uL Lymphocytes # 0.2 L (1.0-4.8) k/uL Sodium 133 L (137-145) mmol/L Carbon Dioxide 21 L (22-30) mmol/L BUN 42 H (9-20) mg/dL Creatinine 2.46 H (0.66-1.25) mg/dL Glucose 121 H (74-99) mg/dL POC Glucose (mg/dL) 127 H (75-99) mg/dL Microbiology - Last 24 Hours (Table) 12/24/20 05:40 Urine Culture - Preliminary Urine,Clean Catch Assessment and Plan Plan: Assessment: 1. Acute kidney injury secondary to ATN secondary to cardiorenal syndrome. Also component of contrast-induced acute kidney injury. Renal function worse. Creatinine 2.48 today. Patient received IV contrast dye on December 23 for cardiac catheterization. 2. Acute on chronic systolic CHF with ejection fraction of 20%. 3. Chronic kidney disease stage IIIa with baseline creatinine near 1.3. 4. Metabolic acidosis secondary to acute kidney injury and IV fluids. Maintained on oral bicarbonate. Better. 5. Volume overload. Plan: Dobutamine stopped December 24. Repeat Lasix 40 mg IV once today. Encouraged oral intake. Avoid nephrotoxins. Continue to monitor renal function and urine output. X-ray of the ribs pending. Patient states he felt the rib pop earlier today.
[2020-12-25 11:07] LABS: Glucose,Whole Blood 110 mg/dL (75-99)
--- NOTE | 2020-12-25 13:12 | XR ---
EXAMINATION TYPE: XR ribs bilateral DATE OF EXAM: 12/25/2020 COMPARISON: 12/23/2020 HISTORY: Rib pain TECHNIQUE: 2 view bilateral ribs FINDINGS: No acute fractures are identified. Ribs appear intact. IMPRESSION: 1. Normal bilateral ribs
[2020-12-25 16:42] LABS: Glucose,Whole Blood 132 mg/dL (75-99)
--- NOTE | 2020-12-25 17:31 | P.PN ---
Subjective Progress Note Date: 12/25/20 (delayed charting seen at 1045) Principal diagnosis: shortness of breath Patient is a 70-year-old male with a past medical history of coronary artery disease with history of CABG in 1999, diabetes mellitus type 2, hypertension, and dyslipidemia who presented to the emergency room with shortness of breath. He was subsequently found to have an acute exacerbation of systolic congestive heart failure. He was tachypneic and hypoxic on presentation. He was started on IV heparin due to an elevated troponin. He was started on Lasix and admitted. Cardiology was consulted who agreed with continuing Lasix and IV heparin. He had some optimal diuresis and therefore his Lasix was increased to 80 mg every 8 hours. Due to his low ejection fraction of 20-25% which was newly discovered plan was for cardiac catheterization, this was completed on 12/23 his stent were found to be patent LAD was widely open, with no additional intervention required. He was noted to have worsening renal function and his lisinopril was discontinued. He was transitioned off of heparin drip and onto Eliquis. He was also started on dobutamine. He did go into A. fib and was started on IV amiodarone and then transitioned to oral amiodarone. He was noted to have worsening renal function was seen by nephrology on 12/23. They agreed with continuing dobutamine drip and maintaining a systolic blood pressure greater than 110. On the evening of 12/23 patient seen in follow going to the bathroom and was found to be unresponsive with possible loss of pulses. CPR was initiated and after 1 round of CPR ROSC was achieved. He was awake and alert and did not require intubation. He was transferred to the ICU in critical care was consulted. There was some concern of possible seizure activity versus true cardiac arrest. Head CT was completed which showed no acute process, EEG was normal. His transitioned off of dobutamine on 12/24. Patient seen and examined at bedside. He reports feeling constipated and like his belly is distended. He initially denied any nausea or vomiting. He reports he has not had a bowel movement in several days. He is passing gas. He denies any chest pain. States his shortness of breath is at baseline. He is more edematous than prior to admission. General: non toxic, no distress, appears at stated age Derm: warm, dry Head: atraumatic, normocephalic, symmetric Eyes: EOMI, no lid lag, anicteric sclera Mouth: no lip lesion, mucus membranes moist Cardiovascular: S1-S2 regular, no murmur, positive posterior tibial pulse bilateral, Lungs: Crackles bilateral bases, no accessory muscle use, becomes quite winded when moving to the edge of the bed was in his lungs and is unable to speak been Abdominal: soft, distended, nontender to palpation, no guarding, no appreciable organomegaly Ext: no gross muscle atrophy, 3+ edema bilaterally with left greater than right, no contractures Neuro: CN II-XI grossly intact, no focal neuro deficits Psych: Alert, oriented, appropriate affect Acute exacerbation of systolic congestive heart failure with ejection fraction 20-25% -Cardiology recommendations appreciated -Strict I's and O's, daily weights -Off dobutamine -Continue with metoprolol -ILDA inhibitor on hold secondary to acute kidney injury -Question need for AICD in light of the affect of 20-25% with noted cardiac arrest, will defer to cardiology Cardiac arrest -Rosc achieved with 1 round of CPR -No additional arrhythmias noted -Normal EEG Constipation - add lactulose X1 to miralax Acute kidney injury, likely cardiorenal component of exposure to IV contrast dye, metabolic acidosis -Nephrology following -Intermittent doses of Lasix pending renal function -Off fluids -On oral bicarb Acute hypoxic respiratory failure -wean O2 as able New-onset A. fib -Started on IV amiodarone and then transitioned to oral amiodarone -Eliquis Non-STEMI with history of coronary artery disease and CABG -Cath with patent GAYLE to LAD and prior stents, no intervention needed -Continue with Plavix, Lipitor, Imdur, Lopressor Anemia, thrombocytopenia -Check iron studies -Follow CBC -No indication for transfusion at this point in time. Diabetes mellitus type 2 - off metformin - SSI - follow BS - check A1C Hypertension - controlled - Continue with metoprolol - follow BP Dyslipidemia - Statin Hypomagnesemia, resolved DVT prophylaxis: Nildaqunayely Discussed with: patient, nursing Anticipated discharge: 3-[address]: A total of 45 minutes was spent on the care of this complex patient more than 50% of the time was spent in counseling and care coordination. Objective - Vital Signs Vital signs: Vital Signs Temp 98.6 F 12/25/20 12:00 Pulse 73 12/25/20 14:00 Resp 16 12/25/20 14:00 BP 123/74 12/25/20 14:00 Pulse Ox 92 L 12/25/20 14:00 Intake & Output 12/24/20 12/25/20 12/25/20 18:59 06:59 18:59 Intake Total 450 400 600 Output Total 250 475 202 Balance 200 -75 398 Weight 99.4 kg 99.4 kg Intake: IV 100 Sodium Chloride 0.9% 1, 100 000 ml @ 50 mls/hr IV . Q20H BHASKAR Rx#:[id number] Intake, IV Titration 50 Amount Sodium Chloride 0.9% 1, 50 000 ml @ 50 mls/hr IV . Q20H BHASKAR Rx#:[id number] Oral 300 400 600 Output: Urine 250 475 200 Stool 2 Other: Voiding Method Urinal Urinal Urinal - Labs CBC & Chem 7: 12/25/20 03:19 12/25/20 03:19 Labs: Abnormal Lab Results - Last 24 Hours (Table) 12/24/20 12/24/20 12/25/20 Range/Units 18:08 20:36 03:19 WBC 3.5 L (3.8-10.6) k/uL RBC 3.53 L (4.30-5.90) m/uL Hgb 10.4 L (13.0-17.5) gm/dL Hct 30.7 L (39.0-53.0) % RDW 16.4 H (11.5-15.5) % Plt Count 147 L (150-450) k/uL Lymphocytes # 0.2 L (1.0-4.8) k/uL Sodium (137-145) mmol/L Carbon Dioxide (22-30) mmol/L BUN (9-20) mg/dL Creatinine (0.66-1.25) mg/dL Glucose (74-99) mg/dL POC Glucose (mg/dL) 179 H 157 H (75-99) mg/dL 12/25/20 12/25/20 12/25/20 Range/Units 03:19 06:44 11:05 WBC (3.8-10.6) k/uL RBC (4.30-5.90) m/uL Hgb (13.0-17.5) gm/dL Hct (39.0-53.0) % RDW (11.5-15.5) % Plt Count (150-450) k/uL Lymphocytes # (1.0-4.8) k/uL Sodium 133 L (137-145) mmol/L Carbon Dioxide 21 L (22-30) mmol/L BUN 42 H (9-20) mg/dL Creatinine 2.46 H (0.66-1.25) mg/dL Glucose 121 H (74-99) mg/dL POC Glucose (mg/dL) 127 H 110 H (75-99) mg/dL Microbiology - Last 24 Hours (Table) 12/24/20 05:40 Urine Culture - Final Urine,Clean Catch
--- NOTE | 2020-12-25 17:40 | XR ---
EXAMINATION TYPE: XR abdomen 2V DATE OF EXAM: 12/25/2020 COMPARISON: NONE HISTORY: Vomiting TECHNIQUE: Supine and upright views FINDINGS: There is dilated gas-filled large bowel down to the sigmoid colon. There is a relative lack of rectal gas. There is mild atelectasis and infiltrate at the lung bases. I see no sign of free air . IMPRESSION: Gas-filled distended large bowel probably due to ileus. Distal mechanical large bowel obs truction not excluded. No free air.
[2020-12-25 18:33] LABS: Albumin 4.2 g/dL (3.5-5.0); Calcium 9.2 mg/dL (8.4-10.2); Potassium 4.5 mmol/L (3.5-5.1); Total Bilirubin 0.8 mg/dL (0.2-1.3); Total Protein 6.9 g/dL (6.3-8.2)
--- NOTE | 2020-12-25 18:59 | CT ---
EXAMINATION TYPE: CT abdomen pelvis wo con DATE OF EXAM: 12/25/2020 COMPARISON: 12/15/2019 HISTORY: Pelvic pain, vomiting and constipation. CT DLP: 989.6 mGycm Automated exposure control for dose reduction was used. Images obtained from the diaphragm to the floor the pelvis without contrast. There are moderate-sized bilateral pleural effusions. Heart is enlarged. There is basilar pulmonary i nfiltrates and atelectasis. Heart is probably increased compared to old exam. Pleural fluid and infil trates are new. This could be congestive heart failure. Liver spleen pancreas stomach gallbladder appear intact. The bile ducts are not dilated. There is no adrenal mass. Kidneys have normal size and contour. There is no hydronephrosis. Ureters a re not dilated. There is mild bilateral perinephric fat stranding. There is small amount of ascites f luid in the paracolic gutters. There is no retroperitoneal adenopathy. There is metal artifact from l eft hip prosthesis. Bladder appears to distends smoothly. There is no inguinal hernia. There is no fr ee fluid in the pelvis. Appendix is normal. I see no mesenteric edema. There is no evidence of free a ir. I see no evidence of a bowel obstruction. There is some retained fecal material in the right colo n. There is some distended gas-filled transverse colon with fluid levels. I see no intestinal wall th ickening. This is consistent with ileus. There are a few sigmoid diverticula. The lumbar vertebra have normal alignment. There is no compression fracture. There is L5-S1 disc spac e narrowing and vacuum disc. There is some hypertrophic mild facet arthropathy. The bony pelvis appea rs intact. IMPRESSION: Distended large bowel with fluid levels suggestive of large bowel ileus. This is a change compared to old exam. I do not suspect a mechanical bowel obstruction. There is mild ascites. Bilateral pleural effusions and basilar pulmonary infiltrates suggestive of congestive heart failure which is new compared to recent exam.
[2020-12-25 21:21] LABS: Glucose,Whole Blood 130 mg/dL (75-99)
[2020-12-25] MEDS: polyethylene glycoL 3350 17 GM POWD.PACK PO SCH (21:44)
[2020-12-26 04:14] LABS: Anisocytosis Slight; Basophils % (A) 0 %; Eosinophils % (A) 0 %; HCT 30.7 % (39.0-53.0); HGB 9.9 gm/dL (13.0-17.5); Hypochromasia Slight; Lymphocytes # (A) 0.3 k/uL (1.0-4.8); Lymphocytes % (A) 10 %; MCH 28.5 pg (25.0-35.0); MCHC 32.3 g/dL (31.0-37.0); MCV 88.1 fL (80.0-100.0); Mean Platelet Volume 7.7; Monocytes # (A) 0.4 k/uL (0-1.0); Monocytes % (A) 10 %; Neutrophils # (A) 2.7 k/uL (1.3-7.7); Neutrophils % (A) 78 %; Platelet Count 150 k/uL (150-450); RBC 3.49 m/uL (4.30-5.90); RDW 16.2 % (11.5-15.5); WBC 3.5 k/uL (3.8-10.6)
[2020-12-26 04:40] LABS: Albumin 3.7 g/dL (3.5-5.0); Calcium 9.2 mg/dL (8.4-10.2); Potassium 3.9 mmol/L (3.5-5.1); Total Bilirubin 0.6 mg/dL (0.2-1.3); Total Protein 6.3 g/dL (6.3-8.2)
[2020-12-26 07:00] LABS: Glucose,Whole Blood 89 mg/dL (75-99)
[2020-12-26] MEDS: INSULIN ASPART (NovoLOG) 100 UNIT/ML VIAL SQ SCH ×4 (07:59→22:00)
[2020-12-26] MEDS: TAMSULOSIN 0.4 MG CAP.ER.24H PO SCH ×2 (08:03→21:58)
[2020-12-26] MEDS: CHOLECALCIFEROL 25 MCG (1000 IU) TABLET PO SCH (08:03)
[2020-12-26] MEDS: ISOSORBIDE MONONITRATE ER 30 MG TAB.ER.24H PO SCH (08:03)
[2020-12-26] MEDS: SODIUM BICARBONATE TAB 650 MG TAB PO SCH ×3 (08:03→21:58)
[2020-12-26] MEDS: LOSARTAN 25 MG TAB PO SCH (08:03)
[2020-12-26] MEDS: AMIODARONE 200 MG TAB PO SCH ×2 (08:03→21:58)
[2020-12-26] MEDS: METOPROLOL TARTRATE 50 MG TAB PO SCH ×2 (08:03→21:59)
[2020-12-26] MEDS: allopurinoL 100 MG TAB PO SCH (08:03)
[2020-12-26] MEDS: APIXABAN 5 MG TAB PO SCH ×2 (08:03→21:58)
[2020-12-26] MEDS: CLOPIDOGREL 75 MG TAB PO SCH (08:03)
[2020-12-26] MEDS: ATORVASTATIN 80 MG TAB PO SCH (08:03)
[2020-12-26] MEDS: PANTOPRAZOLE 40 MG TABLET PO SCH (08:06)
--- NOTE | 2020-12-26 10:27 | P.PN ---
Subjective Patient is seen in follow-up for acute kidney injury on chronic kidney disease. Renal function stable. No chest pain or shortness of breath. Remains off IV fluids. Dobutamine stopped December 24. Blood pressure stable. Vital signs are stable. General: The patient appeared well nourished and normally developed. HEENT: Head exam is unremarkable. Neck is without jugular venous distension. LUNGS: Breath sounds decreased. HEART: Rate and Rhythm are regular. ABDOMEN: Soft, nontender. EXTREMITITES: Trace edema. Objective - Vital Signs Vital signs: Vital Signs Temp 98.3 F 12/26/20 08:00 Pulse 94 12/26/20 08:00 Resp 22 12/26/20 08:00 BP 136/74 12/26/20 08:00 Pulse Ox 94 L 12/26/20 04:00 Intake & Output 12/25/20 12/26/20 12/26/20 18:59 06:59 18:59 Intake Total 600 Output Total 454 100 Balance 146 -100 Weight 99.4 kg 98.6 kg Intake: Oral 600 Output: Urine 350 100 Stool 4 Emesis 100 Other: Voiding Method Urinal Urinal Urinal # Voids 2 # Bowel Movements 3 - Labs CBC & Chem 7: 12/26/20 03:17 12/26/20 03:17 Labs: Abnormal Lab Results - Last 24 Hours (Table) 12/25/20 12/25/20 12/25/20 Range/Units 11:05 16:41 17:58 WBC (3.8-10.6) k/uL RBC (4.30-5.90) m/uL Hgb (13.0-17.5) gm/dL Hct (39.0-53.0) % RDW (11.5-15.5) % Lymphocytes # (1.0-4.8) k/uL Sodium 133 L (137-145) mmol/L Carbon Dioxide 16 L (22-30) mmol/L BUN 43 H (9-20) mg/dL Creatinine 2.34 H (0.66-1.25) mg/dL Glucose 127 H (74-99) mg/dL POC Glucose (mg/dL) 110 H 132 H (75-99) mg/dL Lipase 773 H (23-300) U/L 03/16/21 03/17/21 03/17/21 Range/Units 21:19 03:17 03:17 WBC 3.5 L (3.8-10.6) k/uL RBC 3.49 L (4.30-5.90) m/uL Hgb 9.9 L (13.0-17.5) gm/dL Hct 30.7 L (39.0-53.0) % RDW 16.2 H (11.5-15.5) % Lymphocytes # 0.3 L (1.0-4.8) k/uL Sodium 133 L (137-145) mmol/L Carbon Dioxide 17 L (22-30) mmol/L BUN 43 H (9-20) mg/dL Creatinine 2.20 H (0.66-1.25) mg/dL Glucose (74-99) mg/dL POC Glucose (mg/dL) 130 H (75-99) mg/dL Lipase (23-300) U/L Microbiology - Last 24 Hours (Table) 12/24/20 05:40 Urine Culture - Final Urine,Clean Catch Assessment and Plan Plan: Assessment: 1. Acute kidney injury secondary to ATN secondary to cardiorenal syndrome. Also component of contrast-induced acute kidney injury. Renal function stable. Patient received IV contrast dye on December 23 for cardiac catheterization. 2. Acute on chronic systolic CHF with ejection fraction of 20%. 3. Chronic kidney disease stage IIIa with baseline creatinine near 1.3. 4. Metabolic acidosis secondary to acute kidney injury and IV fluids. Maintained on oral bicarbonate. Better. 5. Volume overload. Plan: Dobutamine stopped December 24. Add oral Lasix 40 mg once daily. Encouraged oral intake. Avoid nephrotoxins. Continue to monitor renal function and urine output. Increase bicarb to 3 times a day.
--- NOTE | 2020-12-26 10:32 | P.PN ---
Subjective Progress Note Date: 12/26/20 Principal diagnosis: PEA, unresponsiveness 70-year-old white male patient with history of ischemic cardiomyopathy with EF of 20-25% currently without AICD, coronary artery disease with previous of coronary artery bypass grafting in 1999, and subsequent stent placement most recently in May 2019, diabetes mellitus type 2, previous history of myocardial infarction, hypertension, hyperlipidemia, osteoarthritis, lifetime nonsmoker who came into the emergency department on 12/19/2020 complaining of shortness of breath, wheezing, orthopnea. His initial chest x-ray showed car diomegaly which was mild, mild vascular congestion/pulmonary edema, and small bilateral pleural effusions. Patient also reported increased lower extremity edema, however did not have any chest pain or chest pressure, he was evaluated by cardiology, he did have elevated troponins of 0.077, and 0.078, his admission proBNP was 10,700. He was given a diagnosis of acute exacerbation of chronic CHF with systolic dysfunction, he was started on IV diuretics. he underwent cardiac catheterization on 12/23/2020 and was found to have stable coronary artery disease with patent GAYLE to the LAD and a widely open circumflex and right coronary artery at the previously stented areas. Medical therapy was r ecommended. However on 12/23/2020 at around 2230 patient had gotten up to the bathroom, and had a fall, he was then unresponsive, and lost pulse. When he was connected to the monitor patient a core into the code sheet was in normal sinus rhythm with first-degree AV block. Brief CPR was given, with return of spontaneous circulation, patient does not require any epinephrine, or intubation, patient subsequently came to, there was a suspicion of seizure-like activity. Patient was transferred to the intensive care unit for further monitoring. In the ICU she was started on dobutamine drip at 3 units per kilo per minute, his point on the same infusing at 50 ML per hour, his chest x-ray shows changes consistent with pulmonary vessel congestion, CHF. Brain CT showed no acute intracranial abnormality. He remains in sinus mechanism, with a controlled rate, no arrhythmias since admission to the intensive care unit, he remains on gentle IV hydration with 0.9 at 50 ML per hour, his renal function is stable since yesterday, with BUN of 38 and creatinine of 2.14. His urine output is around 50-100 ML per hour, his oxygen requirement is currently at 2 L, his pulse ox is 96%, no signs of any acute respiratory distress at this time, no complaints of chest pain. No fever, blood pressures 131/74. On 12/25/2000 patient in follow-up in intensive care unit, he is awake and alert, oriented 3, breathing comfortably, no acute events overnight, dysrhythmias or bradycardias. He is currently on room air, pulse ox 95%, does complain of some chest wall soreness from previous CPR, exacerbated with movement. No cough or congestion, low-grade fever this morning temp of 99.3F, he is in sinus mechanism, his 0.9 normal saline is running at 10 ML per hour, rib x-rays pending. No episodes of syncope, neurology is following. Brain CT showed no acute hemorrhage hydrocephalus or mass effect, EEG did not show seizures, no focal slowing or epileptiform discharges. His labs have been reviewed, white blood cell count is 3.5, hemoglobin is 10.4, sodium is 133, potassium is 4.3, chloride is 102, CO2 is 21, BUN is 42, creatinine is 2.46. BNP is improved is down to 7250, urinalysis shows moderate, 2+ protein, rare bacteria, culture has been sent, patient has had no fever or chills, no urinary symptoms. On 12/26/2020 patient seen in follow-up in the intensive care unit, since yesterday he has developed abdominal pain, and distention, and imaging was done, abdominal x-ray showed gas-filled distended large bowels related to ileus, no free air. CT of the abdomen and pelvis without contrast showed findings suggestive of large bowel ileus, but no suspicion for mechanical bowel obstruction, and there was mild ascites. Bilateral pleural effusions and bibasilar pulmonary infiltrates were noted suggestive of congestive heart failure. Patient developed nausea and vomiting as well. He is currently nothing by mouth, he was given enemas, he started passing small amount of stool, and a little bit of gas, he states his abdomen is less distended and he feels lightly reviewed, no worsening dyspnea, he still on 2 L of oxygen, his pulse ox is 94%, he's had no fever or chills, no chest pain. His had no arrhythmias overnight. A occasional cough, yesterday he was complaining of chest discomfort along her right lower ribs, rib x-ray showed normal bilateral ribs, without evidence of acute fractures. His labs have been reviewed, showing white blood cell, 3.5, hemoglobin of 9.9, sodium is 133, potassium is 3.9, CO2 17, and renal profile is stable, with BUN of 43 and creatinine of 2.2. Patient was given a dose of IV Lasix yesterday. His weight is down by 0.8 kg Objective - Vital Signs Vital signs: Vital Signs Temp 98.3 F 12/26/20 08:00 Pulse 94 12/26/20 08:00 Resp 22 12/26/20 08:00 BP 136/74 12/26/20 08:00 Pulse Ox 94 L 12/26/20 04:00 Intake & Output 12/25/20 12/26/20 12/26/20 18:59 06:59 18:59 Intake Total 600 Output Total 454 100 Balance 146 -100 Weight 99.4 kg 98.6 kg Intake: Oral 600 Output: Urine 350 100 Stool 4 Emesis 100 Other: Voiding Method Urinal Urinal Urinal # Voids 2 # Bowel Movements 3 - Exam GENERAL EXAM: Alert, very pleasant, 70-year-old white male,on 2 L of oxygen pulse ox of 94% comfortable in no apparent distress. HEAD: Normocephalic/atraumatic. EYES: Normal reaction of pupils, equal size. Conjunctiva pink, sclera white. NOSE: Clear with pink turbinates. THROAT: No erythema or exudates. NECK: No masses, no JVD, no thyroid enlargement, no adenopathy. CHEST: No chest wall deformity. Symmetrical expansion. LUNGS: Equal air entry with mild crackles, no wheeze, rhonchi or dullness. CVS: Regular rate and rhythm, normal S1 and S2, no gallops, no murmurs, no rubs ABDOMEN: Soft, nontender. No hepatosplenomegaly, normal bowel sounds, no guarding or rigidity. EXTREMITIES: No clubbing, no edema, no cyanosis, 2+ pulses and upper and lower extremities. MUSCULOSKELETAL: Muscle strength and tone normal. SPINE: No scoliosis or deformity SKIN: No rashes CENTRAL NERVOUS SYSTEM: Alert and oriented -3. No focal deficits, tone is normal in all 4 extremities. PSYCHIATRIC: Alert and oriented -3. Appropriate affect. Intact judgment and insight. - Labs CBC & Chem 7: 12/26/20 03:17 12/26/20 03:17 Labs: Abnormal Lab Results - Last 24 Hours (Table) 12/25/20 12/25/20 12/25/20 Range/Units 11:05 16:41 17:58 WBC (3.8-10.6) k/uL RBC (4.30-5.90) m/uL Hgb (13.0-17.5) gm/dL Hct (39.0-53.0) % RDW (11.5-15.5) % Lymphocytes # (1.0-4.8) k/uL Sodium 133 L (137-145) mmol/L Carbon Dioxide 16 L (22-30) mmol/L BUN 43 H (9-20) mg/dL Creatinine 2.34 H (0.66-1.25) mg/dL Glucose 127 H (74-99) mg/dL POC Glucose (mg/dL) 110 H 132 H (75-99) mg/dL Lipase 773 H (23-300) U/L 12/25/20 12/26/20 12/26/20 Range/Units 21:19 03:17 03:17 WBC 3.5 L (3.8-10.6) k/uL RBC 3.49 L (4.30-5.90) m/uL Hgb 9.9 L (13.0-17.5) gm/dL Hct 30.7 L (39.0-53.0) % RDW 16.2 H (11.5-15.5) % Lymphocytes # 0.3 L (1.0-4.8) k/uL Sodium 133 L (137-145) mmol/L Carbon Dioxide 17 L (22-30) mmol/L BUN 43 H (9-20) mg/dL Creatinine 2.20 H (0.66-1.25) mg/dL Glucose (74-99) mg/dL POC Glucose (mg/dL) 130 H (75-99) mg/dL Lipase (23-300) U/L Microbiology - Last 24 Hours (Table) 12/24/20 05:40 Urine Culture - Final Urine,Clean Catch Assessment and Plan Plan: Assessment: #1. Acute hypoxic respiratory failure related to acute exacerbation of systolic CHF #2. Cardiac arrest, PEA requiring brief CPR with return of spontaneous circulation 12/23/2020 related to the above, possibility of seizures is not excluded, neurology consultation has been requested. CT brain shows no acute abnormality. EEG was within normal limits, no evidence of seizures or e pileptiform discharges or background slowing #3. Acute kidney injury #4. Coronary artery disease, with previous bypass grafting and subsequent stenting. Patient underwent cardiac catheterization on 12/23/2020 showing stable chronic coronary artery disease with patent GAYLE to the LAD and circumf maurice and RCA stents patent #5. Ischemic cardiomyopathy #6. Nonsmoker #7. Diabetes mellitus #8. Troponin leak rule out possibility of non-ST elevated CT #9. Onset atrial fibrillation started on IV amiodarone #10. Hypertension #11. Hyperlipidemia #12. Acute ileus, with abdominal distention, nausea and vomiting, abdominal x- ray and CT imaging of the abdomen and pelvis showed colonic distention, but no suspicion for mechanical obstruction Plan: Continue oral Lasix, no worsening dyspnea, encourage deep breathing and coughing, no acute events overnight, patient was given enemas for ileus, we'll consult surgery for this issue. No recurrence of arrhythmia, hemodynamically stable. Patient is stable to transfer out of intensive care unit to selective care unit. I performed a history & physical examination of the patient and discussed their management with my nurse practitioner, Ariadna Cadena. I reviewed the nurse practitioner's note and agree with the documented findings and plan of care. Lung sounds are positive for diminished breath sounds.. The findings and the impression was discussed with the patient. I attest to the documentation by the nurse practitioner. Time with Patient: Less than 30
--- NOTE | 2020-12-26 11:29 | P.PN ---
Subjective Progress Note Date: 12/26/20 (delayed charting seen at 0915) Principal diagnosis: shortness of breath Patient is a 70-year-old male with a past medical history of coronary artery disease with history of CABG in 1999, diabetes mellitus type 2, hypertension, and dyslipidemia who presented to the emergency room with shortness of breath. He was subsequently found to have an acute exacerbation of systolic congestive heart failure. He was tachypneic and hypoxic on presentation. He was started on IV heparin due to an elevated troponin. He was started on Lasix and admitted. Cardiology was consulted who agreed with continuing Lasix and IV heparin. He had some optimal diuresis and therefore his Lasix was increased to 80 mg every 8 hours. Due to his low ejection fraction of 20-25% which was newly discovered plan was for cardiac catheterization, this was completed on 12/23 his stent were found to be patent LAD was widely open, with no additional intervention required. He was noted to have worsening renal function and his lisinopril was discontinued. He was transitioned off of heparin drip and onto Eliquis. He was also started on dobutamine. He did go into A. fib and was started on IV amiodarone and then transitioned to oral amiodarone. He was noted to have worsening renal function was seen by nephrology on 12/23. They agreed with continuing dobutamine drip and maintaining a systolic blood pressure greater than 110. On the evening of 12/23 patient seen in follow going to the bathroom and was found to be unresponsive with possible loss of pulses. CPR was initiated and after 1 round of CPR ROSC was noted, concern for possible vasovagal episode. He was awake and alert and did not require intubation. He was transferred to the ICU in critical care was consulted. There was some conc kay of possible seizure activity versus true cardiac arrest. Head CT was completed which showed no acute process, EEG was normal. His transitioned off of dobutamine on 12/24. He developed abdominal distension, nausea, and abdominal pain on 12/[address] demonstrated large bowel ileus. He did have an enema which resulted in liquid bowel movement and he had one large formed BM the morning of 12/26. Patient seen and examined at bedside. Feeling better today, some abd pain still, no nausea, has been tolerating small amounts of water. No chest pain, + SOB, still with edema L>R and more than he has at home. General: non toxic, mild distress distress, appears at stated age Derm: warm, dry Head: atraumatic, normocephalic, symmetric Eyes: EOMI, no lid lag, anicteric sclera Mouth: no lip lesion, mucus membranes moist Cardiovascular: S1-S2 regular, no murmur, positive posterior tibial pulse yanira ateral, Lungs: Crackles bilateral bases, no accessory muscle use Abdominal: Hypoactive bowel sounds, soft, distended, nontender to palpation, no guarding, no appreciable organomegaly Ext: no gross muscle atrophy, 3+ edema bilaterally with left greater than right, no contracture Neuro: CN II-XI grossly intact, no focal neuro deficits Psych: Alert, oriented, appropriate affect Acute exacerbation of systolic congestive heart failure with ejection fraction 20-25% -Cardiology recommendations appreciated -Strict I's and O's, daily weights -Off dobutamine -Continue with metoprolol -Lasix being dose by nephrology daily -ILDA inhibitor on hold secondary to acute kidney injury -Question need for AICD in light of the affect of 20-25% with noted cardiac arrest, will defer to cardiology Cardiac event possible syncope vs cardiac arrest -Rosc noted after 1 round of CPR -No additional arrhythmias noted -Normal EEG large bowel ileus - NPO except Ice chips and meds - enema X 1 - encourage up to chair and moving - had 1 large formed BM if no improvement in AM then consult surgery Acute kidney injury, likely cardiorenal component of exposure to IV contrast dye, metabolic acidosis -Nephrology following -Intermittent doses of Lasix pending renal function -Off fluids -On oral bicarb Acute hypoxic respiratory failure -wean O2 as able New-onset Paroxysmal A. fib -Started on IV amiodarone and then transitioned to oral amiodarone -Eliquis Non-STEMI with history of coronary artery disease and CABG -Cath with patent GAYLE to LAD and prior stents, no intervention needed -Continue with Plavix, Lipitor, Imdur, Lopressor Anemia, thrombocytopenia -await iron studies -Follow CBC -No indication for transfusion at this point in time. Diabetes mellitus type 2 - off metformin - SSI - follow BS - check A1C Hypertension - controlled - Continue with metoprolol - follow BP Dyslipidemia - Statin Hypomagnesemia, resolved DVT prophylaxis: Nildaquis Discussed with: patient, nursing Anticipated discharge: 2-[address]: A total of 35 minutes was spent on the care of this complex patient more than 50% of the time was spent in counseling and care coordination. Objective - Vital Signs Vital signs: Vital Signs Temp 98.3 F 12/26/20 08:00 Pulse 94 12/26/20 08:00 Resp 22 12/26/20 08:00 BP 136/74 12/26/20 08:00 Pulse Ox 94 L 12/26/20 04:00 Intake & Output 12/25/20 12/26/20 12/26/20 18:59 06:59 18:59 Intake Total 600 Output Total 454 100 Balance 146 -100 Weight 99.4 kg 98.6 kg Intake: Oral 600 Output: Urine 350 100 Stool 4 Emesis 100 Other: Voiding Method Urinal Urinal Urinal # Voids 2 # Bowel Movements 3 - Labs CBC & Chem 7: 12/26/20 03:17 12/26/20 03:17 Labs: Abnormal Lab Results - Last 24 Hours (Table) 12/25/20 12/25/20 12/25/20 Range/Units 16:41 17:58 21:19 WBC (3.8-10.6) k/uL RBC (4.30-5.90) m/uL Hgb (13.0-17.5) gm/dL Hct (39.0-53.0) % RDW (11.5-15.5) % Lymphocytes # (1.0-4.8) k/uL Sodium 133 L (137-145) mmol/L Carbon Dioxide 16 L (22-30) mmol/L BUN 43 H (9-20) mg/dL Creatinine 2.34 H (0.66-1.25) mg/dL Glucose 127 H (74-99) mg/dL POC Glucose (mg/dL) 132 H 130 H (75-99) mg/dL Lipase 773 H (23-300) U/L 12/26/20 12/26/20 Range/Units 03:17 03:17 WBC 3.5 L (3.8-10.6) k/uL RBC 3.49 L (4.30-5.90) m/uL Hgb 9.9 L (13.0-17.5) gm/dL Hct 30.7 L (39.0-53.0) % RDW 16.2 H (11.5-15.5) % Lymphocytes # 0.3 L (1.0-4.8) k/uL Sodium 133 L (137-145) mmol/L Carbon Dioxide 17 L (22-30) mmol/L BUN 43 H (9-20) mg/dL Creatinine 2.20 H (0.66-1.25) mg/dL Glucose (74-99) mg/dL POC Glucose (mg/dL) (75-99) mg/dL Lipase (23-300) U/L Microbiology - Last 24 Hours (Table) 12/24/20 05:40 Urine Culture - Final Urine,Clean Catch
[2020-12-26 11:41] LABS: Glucose,Whole Blood 88 mg/dL (75-99)
--- NOTE | 2020-12-26 12:44 | PN ---
PROGRESS NOTE Mr. Wright is doing well today. He is hemodynamically stable. No evidence of bradycardia. No syncope or near syncope. Vitals are stable. S1, S2 heard normally, short systolic murmur is audible at the base. Lungs reveal diminished air entry. Abdomen and lower extremity exam unchanged. Plan is to add losartan 25 mg daily, increase activity and move him to the medical floor on . MMODL / IJN: [id number] /
[2020-12-26] MEDS: FUROSEMIDE 40 MG TAB PO SCH (16:36)
[2020-12-26 16:44] LABS: Glucose,Whole Blood 81 mg/dL (75-99)
[2020-12-26 20:38] LABS: Glucose,Whole Blood 92 mg/dL (75-99)
[2020-12-26] MEDS: polyethylene glycoL 3350 17 GM POWD.PACK PO SCH (22:00)
[2020-12-27 03:00] LABS: Ferritin 45.2 ng/mL (22.0-322.0)
[2020-12-27 04:11] LABS: % Iron Saturation 6.73 (15.00-50.00)
[2020-12-27 04:59] LABS: Anisocytosis Slight; HCT 31.3 % (39.0-53.0); HGB 9.9 gm/dL (13.0-17.5); Hypochromasia Slight; MCH 27.1 pg (25.0-35.0); MCHC 31.6 g/dL (31.0-37.0); MCV 85.8 fL (80.0-100.0); Mean Platelet Volume 7.4; Platelet Count 156 k/uL (150-450); RBC 3.65 m/uL (4.30-5.90); RDW 16.3 % (11.5-15.5); WBC 3.2 k/uL (3.8-10.6)
[2020-12-27 05:24] LABS: Calcium 8.9 mg/dL (8.4-10.2); Potassium 3.3 mmol/L (3.5-5.1)
[2020-12-27] MEDS ORDERED: Potassium Replacement Protocol 1 EACH MISC MISCELLANE PRN (05:29)
[2020-12-27] MEDS: INSULIN ASPART (NovoLOG) 100 UNIT/ML VIAL SQ SCH ×4 (08:03→22:09)
[2020-12-27 08:04] LABS: Glucose,Whole Blood 86 mg/dL (75-99)
[2020-12-27] MEDS: POTASSIUM CHLORIDE ER 20 MEQ TAB.ER PO SCH ×2 (08:12→10:27)
[2020-12-27] MEDS: PANTOPRAZOLE 40 MG TABLET PO SCH (08:18)
[2020-12-27] MEDS: ATORVASTATIN 80 MG TAB PO SCH (08:19)
[2020-12-27] MEDS: AMIODARONE 200 MG TAB PO SCH ×2 (08:19→22:06)
[2020-12-27] MEDS: allopurinoL 100 MG TAB PO SCH (08:19)
[2020-12-27] MEDS: CLOPIDOGREL 75 MG TAB PO SCH (08:19)
[2020-12-27] MEDS: CHOLECALCIFEROL 25 MCG (1000 IU) TABLET PO SCH (08:19)
[2020-12-27] MEDS: APIXABAN 5 MG TAB PO SCH ×2 (08:19→22:07)
[2020-12-27] MEDS: FUROSEMIDE 40 MG TAB PO SCH (08:19)
[2020-12-27] MEDS: ISOSORBIDE MONONITRATE ER 30 MG TAB.ER.24H PO SCH (08:20)
[2020-12-27] MEDS: SODIUM BICARBONATE TAB 650 MG TAB PO SCH ×3 (08:20→22:06)
[2020-12-27] MEDS: METOPROLOL TARTRATE 50 MG TAB PO SCH ×2 (08:20→22:07)
[2020-12-27] MEDS: TAMSULOSIN 0.4 MG CAP.ER.24H PO SCH ×2 (08:20→22:07)
--- NOTE | 2020-12-27 08:36 | PN ---
PROGRESS NOTE Mr. Wright remains in sinus rhythm hemodynamically stable. However, he is having some abdominal distention and discomfort. There seems to be a small bowel partial obstruction type picture clinically. I am requesting evaluation by Dr. Chow. Vitals are stable. JVD is 1 cm. No carotid bruit. S1, S2 heard normally, short systolic murmur noted. Lungs reveal improved air entry. Abdomen is distended. Bowel sounds are diminished. Advised evaluation by Surgery. Same medications from a cardiac standpoint. MMODL / IJN: [id number] /
--- NOTE | 2020-12-27 09:51 | P.PN ---
Subjective Progress Note Date: 12/27/20 Principal diagnosis: shortness of breath Patient is a 70-year-old male with a past medical history of coronary artery disease with history of CABG in 1999, diabetes mellitus type 2, hypertension, and dyslipidemia who presented to the emergency room with shortness of breath. He was subsequently found to have an acute exacerbation of systolic congestive heart failure. He was tachypneic and hypoxic on presentation. He was started on IV heparin due to an elevated troponin. He was started on Lasix and admitted. Cardiology was consulted who agreed with continuing Lasix and IV heparin. He had some optimal diuresis and therefore his Lasix was increased to 80 mg every 8 hours. Due to his low ejection fraction of 20-25% which was newly discovered plan was for cardiac catheterization, this was completed on 12/23 his stent were found to be patent LAD was widely open, with no additional intervention required. He was noted to have worsening renal function and his lisinopril was discontinued. He was transitioned off of heparin drip and onto Eliquis. He was also started on dobutamine. He did go into A. fib and was started on IV amiodarone and then transitioned to oral amiodarone. He was noted to have worsening renal function was seen by nephrology on 12/23. They agreed with continuing dobutamine drip and maintaining a systolic blood pressure greater than 110. On the evening of 12/23 patient seen in follow going to the bathroom and was found to be unresponsive with possible loss of pulses. CPR was initiated and after 1 round of CPR ROSC was noted, concern for possible vasovagal episode. He was awake and alert and did not require intubation. He was transferred to the ICU in critical care was consulted. There was some concern of possible seizure activity versus true cardiac arrest. Head CT was completed which showed no acute process, EEG was normal. His transitioned off of dobutamine on 12/24. He developed abdominal distension, nausea, and abdominal pain on 12/[address] demonstrated large bowel ileus. He did have an enema which resulted in liquid bowel movement and he had one large formed BM the morning of 12/26, the rest were liquid. His renal function was slowly improving. Patient seen and examined at bedside. Having some abdominal cramping, not as severe as prior had several liquid stools. General: non toxic,no distress distress, appears at stated age Derm: warm, dry Head: atraumatic, normocephalic, symmetric Eyes: EOMI, no lid lag, anicteric sclera Mouth: no lip lesion, mucus membranes moist Cardiovascular: S1-S2 regular, no murmur, positive posterior tibial pulse bilateral, Lungs: Crackles bilateral bases, no accessory muscle use Abdominal: + bowel sounds, soft, distended, nontender to palpation, no guarding, no appreciable organomegaly Ext: no gross muscle atrophy, 2+ edema bilaterally with left greater than right, no contracture Neuro: CN II-XI grossly intact, no focal neuro deficits Psych: Alert, oriented, appropriate affect Acute exacerbation of systolic congestive heart failure with ejection fraction 20-25% -Cardiology recommendations appreciated -Strict I's and O's, daily weights - lopressor, losartan -Off dobutamine -Lasix once daily -Question need for AICD in light of the affect of 20-25% with noted cardiac arrest, will defer to cardiology Cardiac event possible syncope vs cardiac arrest -Rosc noted after 1 round of CPR -No additional arrhythmias noted -Normal EEG large bowel ileus - Clear liquid diet - enema X 1 - await surgery recs - encourage up to chair and moving - up to chair increase ambulation as able. Acute kidney injury, likely cardiorenal component of exposure to IV contrast d ye, metabolic acidosis -Nephrology following -Intermittent doses of Lasix pending renal function -Off fluids -On oral bicarb Acute hypoxic respiratory failure -wean O2 as able New-onset Paroxysmal A. fib -Started on IV amiodarone and then transitioned to oral amiodarone -Eliquis Non-STEMI with history of coronary artery disease and CABG -Cath with patent GAYLE to LAD and prior stents, no intervention needed -Continue with Plavix, Lipitor, Imdur, Lopressor Iron deficiency anemia -Follow CBC -No indication for transfusion at this point in time. -Recommend colonoscopy as outpatient in light of ileus, frequent use of imodium at home, and iron deficiency Diabetes mellitus type 2 - off metformin - SSI - follow BS - A1C 6 Hypertension - controlled - Continue with metoprolol - follow BP Dyslipidemia - Statin Hypomagnesemia, resolved thrombocytopenia, resolved DVT prophylaxis: Eliquis Discussed with: patient, nursing Anticipated discharge: 2-[address]: A total of 35 minutes was spent on the care of this complex patient more than 50% of the time was spent in counseling and care coordination. Objective - Vital Signs Vital signs: Vital Signs Temp 96.3 F L 12/27/20 08:00 Pulse 84 12/27/20 08:00 Resp 16 12/27/20 08:00 BP 147/78 12/27/20 08:00 Pulse Ox 94 L 12/27/20 08:00 Intake & Output 12/26/20 12/27/20 12/27/20 18:59 06:59 18:59 Intake Total 120 300 Output Total 200 1900 200 Balance -80 -1600 -200 Weight 92.5 kg Intake: Oral 120 300 Output: Urine 200 1400 200 Urine/Stool Mix 500 Other: Voiding Method Urinal # Voids 2 # Bowel Movements 2 2 - Labs CBC & Chem 7: 12/27/20 03:35 12/27/20 03:35 Labs: Abnormal Lab Results - Last 24 Hours (Table) 12/26/20 12/27/20 12/27/20 Range/Units 03:17 03:35 03:35 WBC 3.2 L (3.8-10.6) k/uL RBC 3.65 L (4.30-5.90) m/uL Hgb 9.9 L (13.0-17.5) gm/dL Hct 31.3 L (39.0-53.0) % RDW 16.3 H (11.5-15.5) % Potassium 3.3 L (3.5-5.1) mmol/L Carbon Dioxide 20 L (22-30) mmol/L BUN 37 H (9-20) mg/dL Creatinine 1.74 H (0.66-1.25) mg/dL Iron 23 L (65-175) ug/dL % Saturation 6.73 L (15.00-50.00)
[2020-12-27] MEDS: LOSARTAN 25 MG TAB PO SCH (10:28)
--- NOTE | 2020-12-27 10:32 | P.PN ---
Subjective Patient is seen in follow-up for acute kidney injury on chronic kidney disease. Renal function improved. No chest pain or shortness of breath. Remains off IV fluids. Dobutamine stopped December 24. Blood pressure stable. Good urine output. Vital signs are stable. General: The patient appeared well nourished and normally developed. HEENT: Head exam is unremarkable. Neck is without jugular venous distension. LUNGS: Breath sounds decreased. HEART: Rate and Rhythm are regular. ABDOMEN: Soft, nontender. EXTREMITITES: Trace edema. Objective - Vital Signs Vital signs: Vital Signs Temp 96.3 F L 12/27/20 08:00 Pulse 84 12/27/20 08:00 Resp 16 12/27/20 08:00 BP 147/78 12/27/20 08:00 Pulse Ox 94 L 12/27/20 08:00 Intake & Output 12/26/20 12/27/20 12/27/20 18:59 06:59 18:59 Intake Total 120 300 Output Total 200 1900 200 Balance -80 -1600 -200 Weight 92.5 kg Intake: Oral 120 300 Output: Urine 200 1400 200 Urine/Stool Mix 500 Other: Voiding Method Urinal # Voids 2 # Bowel Movements 2 2 - Labs CBC & Chem 7: 12/27/20 03:35 12/27/20 03:35 Labs: Abnormal Lab Results - Last 24 Hours (Table) 12/26/20 12/27/20 12/27/20 Range/Units 03:17 03:35 03:35 WBC 3.2 L (3.8-10.6) k/uL RBC 3.65 L (4.30-5.90) m/uL Hgb 9.9 L (13.0-17.5) gm/dL Hct 31.3 L (39.0-53.0) % RDW 16.3 H (11.5-15.5) % Potassium 3.3 L (3.5-5.1) mmol/L Carbon Dioxide 20 L (22-30) mmol/L BUN 37 H (9-20) mg/dL Creatinine 1.74 H (0.66-1.25) mg/dL Iron 23 L (65-175) ug/dL % Saturation 6.73 L (15.00-50.00) Assessment and Plan Plan: Assessment: 1. Acute kidney injury secondary to ATN secondary to cardiorenal syndrome. A lso component of contrast-induced acute kidney injury. Renal function improved. Patient received IV contrast dye on December 23 for cardiac catheterization. 2. Acute on chronic systolic CHF with ejection fraction of 20%. 3. Chronic kidney disease stage IIIa with baseline creatinine near 1.3. 4. Metabolic acidosis secondary to acute kidney injury and IV fluids. Maintained on oral bicarbonate. Better. 5. Volume overload. 6. Hypokalemia from diuresis. Replaced. Plan: Dobutamine stopped December 24. Maintain oral Lasix 40 mg once daily. Encouraged oral intake. Avoid nephrotoxins. Continue to monitor renal function and urine output.
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
--- NOTE | 2020-12-27 11:37 | P.PN ---
Subjective Progress Note Date: 12/27/20 Principal diagnosis: PEA, unresponsiveness 70-year-old white male patient with history of ischemic cardiomyopathy with EF of 20-25% currently without AICD, coronary artery disease with previous of coronary artery bypass grafting in 1999, and subsequent stent placement most recently in May 2019, diabetes mellitus type 2, previous history of myocardial infarction, hypertension, hyperlipidemia, osteoarthritis, lifetime nonsmoker who came into the emergency department on 12/19/2020 complaining of shortness of breath, wheezing, orthopnea. His initial chest x-ray showed car diomegaly which was mild, mild vascular congestion/pulmonary edema, and small bilateral pleural effusions. Patient also reported increased lower extremity edema, however did not have any chest pain or chest pressure, he was evaluated by cardiology, he did have elevated troponins of 0.077, and 0.078, his admission proBNP was 10,700. He was given a diagnosis of acute exacerbation of chronic CHF with systolic dysfunction, he was started on IV diuretics. he underwent cardiac catheterization on 12/23/2020 and was found to have stable coronary artery disease with patent GAYEL to the LAD and a widely open circumflex and right coronary artery at the previously stented areas. Medical therapy was r ecommended. However on 12/23/2020 at around 2230 patient had gotten up to the bathroom, and had a fall, he was then unresponsive, and lost pulse. When he was connected to the monitor patient a core into the code sheet was in normal sinus rhythm with first-degree AV block. Brief CPR was given, with return of spontaneous circulation, patient does not require any epinephrine, or intubation, patient subsequently came to, there was a suspicion of seizure-like activity. Patient was transferred to the intensive care unit for further monitoring. In the ICU she was started on dobutamine drip at 3 units per kilo per minute, his point on the same infusing at 50 ML per hour, his chest x-ray shows changes consistent with pulmonary vessel congestion, CHF. Brain CT showed no acute intracranial abnormality. He remains in sinus mechanism, with a controlled rate, no arrhythmias since admission to the intensive care unit, he remains on gentle IV hydration with 0.9 at 50 ML per hour, his renal function is stable since yesterday, with BUN of 38 and creatinine of 2.14. His urine output is around 50-100 ML per hour, his oxygen requirement is currently at 2 L, his pulse ox is 96%, no signs of any acute respiratory distress at this time, no complaints of chest pain. No fever, blood pressures 131/74. On 12/25/2000 patient in follow-up in intensive care unit, he is awake and alert, oriented 3, breathing comfortably, no acute events overnight, dysrhythmias or bradycardias. He is currently on room air, pulse ox 95%, does complain of some chest wall soreness from previous CPR, exacerbated with movement. No cough or congestion, low-grade fever this morning temp of 99.3F, he is in sinus mechanism, his 0.9 normal saline is running at 10 ML per hour, rib x-rays pending. No episodes of syncope, neurology is following. Brain CT showed no acute hemorrhage hydrocephalus or mass effect, EEG did not show seizures, no focal slowing or epileptiform discharges. His labs have been reviewed, white blood cell count is 3.5, hemoglobin is 10.4, sodium is 133, potassium is 4.3, chloride is 102, CO2 is 21, BUN is 42, creatinine is 2.46. BNP is improved is down to 7250, urinalysis shows moderate, 2+ protein, rare bacteria, culture has been sent, patient has had no fever or chills, no urinary symptoms. On 12/26/2020 patient seen in follow-up in the intensive care unit, since yesterday he has developed abdominal pain, and distention, and imaging was done, abdominal x-ray showed gas-filled distended large bowels related to ileus, no free air. CT of the abdomen and pelvis without contrast showed findings suggestive of large bowel ileus, but no suspicion for mechanical bowel obstruction, and there was mild ascites. Bilateral pleural effusions and bibasilar pulmonary infiltrates were noted suggestive of congestive heart failure. Patient developed nausea and vomiting as well. He is currently nothing by mouth, he was given enemas, he started passing small amount of stool, and a little bit of gas, he states his abdomen is less distended and he feels lightly reviewed, no worsening dyspnea, he still on 2 L of oxygen, his pulse ox is 94%, he's had no fever or chills, no chest pain. His had no arrhythmias overnight. A occasional cough, yesterday he was complaining of chest discomfort along her right lower ribs, rib x-ray showed normal bilateral ribs, without evidence of acute fractures. His labs have been reviewed, showing white blood cell, 3.5, hemoglobin of 9.9, sodium is 133, potassium is 3.9, CO2 17, and renal profile is stable, with BUN of 43 and creatinine of 2.2. Patient was given a dose of IV Lasix yesterday. His weight is down by 0.8 kg On 12/27/2020 patient seen in follow-up in the intensive care unit, he is awake and alert, in no acute distress, is currently on 2 L of oxygen pulse ox is 94%, vital signs are stable, no fever or chills, breathing fernández she is very stable, lung sounds are clear, no rhonchi wheezing or crackles. No cough or congestion, no complaints of chest pain. No dysrhythmias on the monitor, abdomen is soft, less distended, she has been started on clear liquid diet, abdomen is nontender, patient is passing some liquid brown output per rectum, he is still receiving MiraLAX and enemas. He is awaiting surgical evaluation. Otherwise he's had no acute events overnight Objective - Vital Signs Vital signs: Vital Signs Temp 96.3 F L 12/27/20 08:00 Pulse 84 12/27/20 08:00 Resp 16 12/27/20 08:00 BP 147/78 12/27/20 08:00 Pulse Ox 94 L 12/27/20 08:00 Intake & Output 12/26/20 12/27/20 12/27/20 18:59 06:59 18:59 Intake Total 120 300 Output Total 200 1900 200 Balance -80 -1600 -200 Weight 92.5 kg Intake: Oral 120 300 Output: Urine 200 1400 200 Urine/Stool Mix 500 Other: Voiding Method Urinal # Voids 2 # Bowel Movements 2 2 - Exam GENERAL EXAM: Alert, very pleasant, 70-year-old white male,on 2 L of oxygen pulse ox of 94% comfortable in no apparent distress. HEAD: Normocephalic/atraumatic. EYES: Normal reaction of pupils, equal size. Conjunctiva pink, sclera white. NOSE: Clear with pink turbinates. THROAT: No erythema or exudates. NECK: No masses, no JVD, no thyroid enlargement, no adenopathy. CHEST: No chest wall deformity. Symmetrical expansion. LUNGS: Equal air entry with mild crackles, no wheeze, rhonchi or dullness. CVS: Regular rate and rhythm, normal S1 and S2, no gallops, no murmurs, no rubs ABDOMEN: Soft, nontender. No hepatosplenomegaly, normal bowel sounds, no guarding or rigidity. EXTREMITIES: No clubbing, no edema, no cyanosis, 2+ pulses and upper and lower extremities. MUSCULOSKELETAL: Muscle strength and tone normal. SPINE: No scoliosis or deformity SKIN: No rashes CENTRAL NERVOUS SYSTEM: Alert and oriented -3. No focal deficits, tone is normal in all 4 extremities. PSYCHIATRIC: Alert and oriented -3. Appropriate affect. Intact judgment and insight. - Labs CBC & Chem 7: 12/27/20 03:35 12/27/20 03:35 Labs: Abnormal Lab Results - Last 24 Hours (Table) 12/26/20 12/27/20 12/27/20 Range/Units 03:17 03:35 03:35 WBC 3.2 L (3.8-10.6) k/uL RBC 3.65 L (4.30-5.90) m/uL Hgb 9.9 L (13.0-17.5) gm/dL Hct 31.3 L (39.0-53.0) % RDW 16.3 H (11.5-15.5) % Potassium 3.3 L (3.5-5.1) mmol/L Carbon Dioxide 20 L (22-30) mmol/L BUN 37 H (9-20) mg/dL Creatinine 1.74 H (0.66-1.25) mg/dL Iron 23 L (65-175) ug/dL % Saturation 6.73 L (15.00-50.00) Assessment and Plan Plan: Assessment: #1. Acute hypoxic respiratory failure related to acute exacerbation of systolic CHF #2. Cardiac arrest, PEA requiring brief CPR with return of spontaneous circulation 12/23/2020 related to the above, possibility of seizures is not excluded, neurology consultation has been requested. CT brain shows no acute abnormality. EEG was within normal limits, no evidence of seizures or epileptiform discharges or background slowing #3. Acute kidney injury #4. Coronary artery disease, with previous bypass grafting and subsequent stenting. Patient underwent cardiac catheterization on 12/23/2020 showing stable chronic coronary artery disease with patent GAYLE to the LAD and circumflex and RCA stents patent #5. Ischemic cardiomyopathy #6. Nonsmoker #7. Diabetes mellitus #8. Troponin leak rule out possibility of non-ST elevated ME #9. Onset atrial fibrillation started on IV amiodarone #10. Hypertension #11. Hyperlipidemia #12. Acute ileus, with abdominal distention, nausea and vomiting, abdominal x- ray and CT imaging of the abdomen and pelvis showed colonic distention, but no suspicion for mechanical obstruction Plan: Vital signs are stable, no worsening dyspnea, patient is awaiting surgical evaluation, but abdomen soft, nontender, slightly less distended, he is tolerating clear liquid diet and popsicles, from pulmonary/critical care perspective he stable to go out of ICU to general medical floor today I performed a history & physical examination of the patient and discussed their management with my nurse practitioner, Ariadna Cadena. I reviewed the nurse practitioner's note and agree with the documented findings and plan of care. Lung sounds are positive for diminished breath sounds.. The findings and the impression was discussed with the patient. I attest to the documentation by the nurse practitioner. Time with Patient: Less than 30
[2020-12-27 12:05] LABS: Glucose,Whole Blood 102 mg/dL (75-99)
[2020-12-27] MEDS: FERROUS SULFATE 325 MG TAB PO SCH (12:42)
[2020-12-27 17:33] LABS: Glucose,Whole Blood 114 mg/dL (75-99)
[2020-12-27 20:49] LABS: Glucose,Whole Blood 130 mg/dL (75-99)
[2020-12-27] MEDS: polyethylene glycoL 3350 17 GM POWD.PACK PO SCH (22:09)
[2020-12-28 07:24] LABS: Glucose,Whole Blood 106 mg/dL (75-99)
[2020-12-28 08:09] LABS: Anisocytosis Slight; HCT 32.7 % (39.0-53.0); HGB 10.8 gm/dL (13.0-17.5); MCH 28.2 pg (25.0-35.0); MCHC 32.9 g/dL (31.0-37.0); MCV 85.9 fL (80.0-100.0); Mean Platelet Volume 7.7; Platelet Count 166 k/uL (150-450); RBC 3.81 m/uL (4.30-5.90); RDW 16.4 % (11.5-15.5); WBC 3.4 k/uL (3.8-10.6)
[2020-12-28 08:19] LABS: ALT 45 U/L (4-49); AST 74 U/L (17-59); African American GFR (CKD) 56 (>60 ml/min/1.73 sqM); Albumin 3.5 g/dL (3.5-5.0); Albumin/Globulin Ratio 1.3; Alkaline Phosphatase 93 U/L (38-126); Anion Gap 10 mmol/L; Blood Urea Nitrogen 27 mg/dL (9-20); Calcium 8.9 mg/dL (8.4-10.2); Carbon Dioxide 20 mmol/L (22-30); Chloride 107 mmol/L (98-107); Globulin 2.6 g/dL; Glucose 111 mg/dL (74-99); Magnesium 1.7 mg/dL (1.6-2.3); Non-African American GFR(CKD) 48 (>60 ml/min/1.73 sqM); Potassium 2.9 mmol/L (3.5-5.1); Sodium 137 mmol/L (137-145); Total Bilirubin 0.6 mg/dL (0.2-1.3); Total Protein 6.1 g/dL (6.3-8.2)
[2020-12-28] MEDS: INSULIN ASPART (NovoLOG) 100 UNIT/ML VIAL SQ SCH ×4 (08:36→21:18)
[2020-12-28] MEDS: ATORVASTATIN 80 MG TAB PO SCH (08:41)
[2020-12-28] MEDS: TAMSULOSIN 0.4 MG CAP.ER.24H PO SCH ×2 (08:41→20:41)
[2020-12-28] MEDS: allopurinoL 100 MG TAB PO SCH (08:41)
[2020-12-28] MEDS: FUROSEMIDE 40 MG TAB PO SCH (08:41)
[2020-12-28] MEDS: ISOSORBIDE MONONITRATE ER 30 MG TAB.ER.24H PO SCH (08:41)
[2020-12-28] MEDS: METOPROLOL TARTRATE 50 MG TAB PO SCH ×2 (08:41→20:40)
[2020-12-28] MEDS: CHOLECALCIFEROL 25 MCG (1000 IU) TABLET PO SCH (08:42)
[2020-12-28] MEDS: LOSARTAN 25 MG TAB PO SCH ×2 (08:42→20:41)
[2020-12-28] MEDS: PANTOPRAZOLE 40 MG TABLET PO SCH (08:42)
[2020-12-28] MEDS: APIXABAN 5 MG TAB PO SCH ×2 (08:42→20:41)
[2020-12-28] MEDS: CLOPIDOGREL 75 MG TAB PO SCH (08:42)
[2020-12-28] MEDS ORDERED: POTASSIUM CHLORIDE ER 20 MEQ TAB.ER PO STA (08:49)
[2020-12-28] MEDS: AMIODARONE 200 MG TAB PO SCH ×2 (09:19→20:42)
[2020-12-28] MEDS: SODIUM BICARBONATE TAB 650 MG TAB PO SCH ×3 (09:19→20:40)
[2020-12-28] MEDS: HYDROcodone/APAP 5-325MG 1 EACH TAB PO PRN ×2 (09:19→23:57)
[2020-12-28] MEDS: POTASSIUM CHLORIDE 10 MEQ in WATER FOR INJECTION 1 100ML.BAG IVPB SCH ×4 (09:20→13:38)
--- NOTE | 2020-12-28 09:29 | P.PN ---
Subjective Progress Note Date: 12/28/20 Principal diagnosis: shortness of breath Patient is a 70-year-old male with a past medical history of coronary artery disease with history of CABG in 1999, diabetes mellitus type 2, hypertension, and dyslipidemia who presented to the emergency room with shortness of breath. He was subsequently found to have an acute exacerbation of systolic congestive heart failure. He was tachypneic and hypoxic on presentation. He was started on IV heparin due to an elevated troponin. He was started on Lasix and admitted. Cardiology was consulted who agreed with continuing Lasix and IV heparin. He had some optimal diuresis and therefore his Lasix was increased to 80 mg every 8 hours. Due to his low ejection fraction of 20-25% which was newly discovered plan was for cardiac catheterization, this was completed on 12/23 his stent were found to be patent LAD was widely open, with no additional intervention required. He was noted to have worsening renal function and his lisinopril was discontinued. He was transitioned off of heparin drip and onto Eliquis. He was also started on dobutamine. He did go into A. fib and was started on IV amiodarone and then transitioned to oral amiodarone. He was noted to have worsening renal function was seen by nephrology on 12/23. They agreed with continuing dobutamine drip and maintaining a systolic blood pressure greater than 110. On the evening of 12/23 patient seen in follow going to the bathroom and was found to be unresponsive with possible loss of pulses. CPR was initiated and after 1 round of CPR ROSC was noted, concern for possible vasovagal episode. He was awake and alert and did not require intubation. He was transferred to the ICU in critical care was consulted. There was some concern of possible seizure activity versus true cardiac arrest. Head CT was completed which showed no acute process, EEG was normal. His transitioned off of dobutamine on 12/24. He developed abdominal distension, nausea, and abdominal pain on 12/[address] demonstrated large bowel ileus. He did have an enema which resulted in liquid bowel movement and he had one large formed BM the morning of 12/26, the rest were liquid. His renal function was slowly improving and he was kept on lasix. He started having multiple liquid bowel movements. Patient seen and examined at bedside. Belly cramping is better, no nausea, no vomiting, feeling hungry and would like to eat more. Green liquid stool. Still short of breath with movements, still with significant edema. General: non toxic,no distress distress, appears at stated age Derm: warm, dry Head: atraumatic, normocephalic, symmetric Eyes: EOMI, no lid lag, anicteric sclera Mouth: no lip lesion, mucus membranes moist Cardiovascular: S1-S2 regular, no murmur, positive posterior tibial pulse bilateral, Lungs: Decreased bs bilateral bases, no accessory muscle use Abdominal: + bowel sounds, soft, nontender to palpation, no guarding, no appreciable organomegaly Ext: no gross muscle atrophy, 2+ edema bilaterally with left greater than right, no contracture Neuro: CN II-XI grossly intact, no focal neuro deficits Psych: Alert, oriented, appropriate affect Acute exacerbation of systolic congestive heart failure with ejection fraction 20-25% -Cardiology recommendations appreciated -Strict I's and O's, daily weights -Lopressor, losartan -Off dobutamine -Lasix once daily Cardiac event possible syncope vs cardiac arrest -Rosc noted after 1 round of CPR -No additional arrhythmias noted -Normal EEG large bowel ileus - full liquid diet - s/p enema X 1 - Surgery recs appreciated - encourage up to chair and moving - up to chair, increase ambulation as able. Hypokalemia - replace and recheck in AM - recheck Mg in AM - suspect related to lasix and diarrhea Acute kidney injury, likely cardiorenal component of exposure to IV contrast dye, metabolic acidosis -Nephrology following -Lasix once daily -Off fluids -On oral bicarb Acute hypoxic respiratory failure -wean O2 as able New-onset Paroxysmal A. fib -Started on IV amiodarone and then transitioned to oral amiodarone -Eliquis Non-STEMI with history of coronary artery disease and CABG -Cath with patent GAYLE to LAD and prior stents, no intervention needed -Continue with Plavix, Lipitor, Imdur, Lopressor Iron deficiency anemia -Follow CBC -No indication for transfusion at this point in time. -Recommend colonoscopy as outpatient in light of ileus, frequent use of imodium at home, and iron deficiency Diabetes mellitus type 2 - off metformin - SSI - follow BS - A1C 6 Hypertension - controlled - Continue with metoprolol - follow BP Dyslipidemia - Statin Hypomagnesemia, resolved thrombocytopenia, resolved DVT prophylaxis: Eliquis Discussed with: patient, nursing Anticipated discharge: 2-[address]: A total of 35 minutes was spent on the care of this complex patient more than 50% of the time was spent in counseling and care coordination. Objective - Vital Signs Vital signs: Vital Signs Temp 98.6 F 12/28/20 05:00 Pulse 76 12/28/20 05:00 Resp 16 12/28/20 05:00 BP 156/84 12/28/20 05:00 Pulse Ox 95 12/28/20 05:00 Intake & Output 12/27/20 12/28/20 12/28/20 18:59 06:59 18:59 Output Total 500 1 Balance -500 -1 Weight 94 kg Output: Urine 500 Stool 1 Other: Voiding Method Urinal Urinal # Voids 2 1 # Bowel Movements 2 4 - Labs CBC & Chem 7: 12/28/20 07:47 12/28/20 07:47 Labs: Abnormal Lab Results - Last 24 Hours (Table) 12/27/20 12/27/20 12/27/20 Range/Units 12:04 17:32 20:48 WBC (3.8-10.6) k/uL RBC (4.30-5.90) m/uL Hgb (13.0-17.5) gm/dL Hct (39.0-53.0) % RDW (11.5-15.5) % Potassium (3.5-5.1) mmol/L Carbon Dioxide (22-30) mmol/L BUN (9-20) mg/dL Creatinine (0.66-1.25) mg/dL Glucose (74-99) mg/dL POC Glucose (mg/dL) 102 H 114 H 130 H (75-99) mg/dL AST (17-59) U/L Total Protein (6.3-8.2) g/dL 12/28/20 12/28/20 12/28/20 Range/Units 07:23 07:47 07:47 WBC 3.4 L (3.8-10.6) k/uL RBC 3.81 L (4.30-5.90) m/uL Hgb 10.8 L (13.0-17.5) gm/dL Hct 32.7 L (39.0-53.0) % RDW 16.4 H (11.5-15.5) % Potassium 2.9 L (3.5-5.1) mmol/L Carbon Dioxide 20 L (22-30) mmol/L BUN 27 H (9-20) mg/dL Creatinine 1.46 H (0.66-1.25) mg/dL Glucose 111 H (74-99) mg/dL POC Glucose (mg/dL) 106 H (75-99) mg/dL AST 74 H (17-59) U/L Total Protein 6.1 L (6.3-8.2) g/dL
[2020-12-28 11:53] LABS: Glucose,Whole Blood 101 mg/dL (75-99)
[2020-12-28] MEDS: FERROUS SULFATE 325 MG TAB PO SCH (12:10)
--- NOTE | 2020-12-28 13:21 | P.PN ---
Subjective Progress Note Date: 12/28/20 CHIEF COMPLAINT: Ileus HISTORY OF PRESENT ILLNESS: The patient is a 70 year old male admitted for acute on chronic congestive heart failure admitted with elevated troponins. General surgery has been following for large bowel ileus. He continues to pass flatus and is tolerating diet. He also reports having bowel movements. No further abdominal pain at this time. Patient has been transferred from the ICU to the medical floor. REVIEW OF ORGAN SYSTEMS:No fevers or chills. Denies acute chest pain. Denies acute dyspnea on exertion PHYSICAL EXAM: VITALS: Reviewed CONSTITUTIONAL: Well developed and in no acute distress. EYES: Conjuctivae without sclera icterus. Extraocular movements grossly intact. HEAD, EARS, NOSE, THROAT: Moist buccal mucosa. Head is atraumatic, normocephalic . Hears conversational speech. No nasal drainage. NECK: Supple. No thyroidomegaly. RESPIRATORY: Non-labored respirations and equal bilateral excursions. CARDIOVASCULAR: Regular rate and rhythm. ABDOMEN: No peritonitis. Nontender. Mild abdominal distention MUSCULOSKELETAL: Range of motion bilateral upper extremities within normal limits. No clubbing. No cyanosis. SKIN: Well perfused with good skin turgor. NEUROLOGIC: Cranial nerves II through XII grossly intact. Sensation upper and extremities intact. No focal or lateralizing signs. PSYCH: Appropriate affect. Alert and oriented to person, place and time. Displays appropriate insight. CLINCAL LABS: Reviewed. WBC low 3.2 with leukopenia Hemoglobin low at 10.8 for anemia. Potassium low 2.9, hypokalemia. Creatinine improved 1.74 to 1.46 ASSESSMENT: 1. Abdominal distention with large bowel ileus 2. Coronary artery disease with history of stent 3. Acute on chronic congestive heart failure 4. History of recent cardiac event requiring cardiopulmonary resuscitation 5. Diabetes type 2, [id number] 6. Hypokalemia 7. Acute on chronic renal injury 8. Anemia 9. Leukopenia PLAN: 1. Recommend correcting low potassium which may cause refractory ileus 2. May advance diet as tolerated 3. Once medically stable, patient may be discharged Objective - Vital Signs Vital signs: Vital Signs Temp 98.6 F 12/28/20 05:00 Pulse 76 12/28/20 05:00 Resp 16 12/28/20 05:00 BP 156/84 12/28/20 05:00 Pulse Ox 95 03/19/21 05:00 Intake & Output 12/27/20 12/28/20 12/28/20 18:59 06:59 18:59 Output Total 500 1 Balance -500 -1 Weight 94 kg Output: Urine 500 Stool 1 Other: Voiding Method Urinal Urinal # Voids 2 1 # Bowel Movements 2 4 - Labs CBC & Chem 7: 12/29/20 06:20 12/29/20 09:28 Labs: Abnormal Lab Results - Last 24 Hours (Table) 12/27/20 12/27/20 12/28/20 Range/Units 17:32 20:48 07:23 WBC (3.8-10.6) k/uL RBC (4.30-5.90) m/uL Hgb (13.0-17.5) gm/dL Hct (39.0-53.0) % RDW (11.5-15.5) % Potassium (3.5-5.1) mmol/L Carbon Dioxide (22-30) mmol/L BUN (9-20) mg/dL Creatinine (0.66-1.25) mg/dL Glucose (74-99) mg/dL POC Glucose (mg/dL) 114 H 130 H 106 H (75-99) mg/dL AST (17-59) U/L Total Protein (6.3-8.2) g/dL 12/28/20 12/28/20 12/28/20 Range/Units 07:47 07:47 11:51 WBC 3.4 L (3.8-10.6) k/uL RBC 3.81 L (4.30-5.90) m/uL Hgb 10.8 L (13.0-17.5) gm/dL Hct 32.7 L (39.0-53.0) % RDW 16.4 H (11.5-15.5) % Potassium 2.9 L (3.5-5.1) mmol/L Carbon Dioxide 20 L (22-30) mmol/L BUN 27 H (9-20) mg/dL Creatinine 1.46 H (0.66-1.25) mg/dL Glucose 111 H (74-99) mg/dL POC Glucose (mg/dL) 101 H (75-99) mg/dL AST 74 H (17-59) U/L Total Protein 6.1 L (6.3-8.2) g/dL Assessment and Plan (1) Anemia Current Visit: Yes Status: Acute Code(s): D64.9 - ANEMIA, UNSPECIFIED SNOMED Code(s): 475844783 (2) Leukopenia Current Visit: Yes Status: Acute Code(s): D72.819 - DECREASED WHITE BLOOD CELL COUNT, UNSPECIFIED SNOMED Code(s): 73587458
--- NOTE | 2020-12-28 13:22 | P.PN ---
Subjective Patient is seen in follow-up for acute kidney injury on chronic kidney disease. Renal function improving. No chest pain or shortness of breath. Remains off IV fluids. Dobutamine stopped December 24. Blood pressure stable. Good urine output. Maintain on oral Lasix. Potassium level low today. Vital signs are stable. General: The patient appeared well nourished and normally developed. HEENT: Head exam is unremarkable. Neck is without jugular venous distension. LUNGS: Breath sounds decreased. HEART: Rate and Rhythm are regular. ABDOMEN: Soft, nontender. EXTREMITITES: Trace edema. Objective - Vital Signs Vital signs: Vital Signs Temp 98.6 F 12/28/20 05:00 Pulse 76 12/28/20 05:00 Resp 16 12/28/20 05:00 BP 156/84 12/28/20 05:00 Pulse Ox 95 12/28/20 05:00 Intake & Output 12/27/20 12/28/20 12/28/20 18:59 06:59 18:59 Output Total 500 1 Balance -500 -1 Weight 94 kg Output: Urine 500 Stool 1 Other: Voiding Method Urinal Urinal # Voids 2 1 # Bowel Movements 2 4 - Labs CBC & Chem 7: 12/28/20 07:47 12/28/20 07:47 Labs: Abnormal Lab Results - Last 24 Hours (Table) 12/27/20 12/27/20 12/28/20 Range/Units 17:32 20:48 07:23 WBC (3.8-10.6) k/uL RBC (4.30-5.90) m/uL Hgb (13.0-17.5) gm/dL Hct (39.0-53.0) % RDW (11.5-15.5) % Potassium (3.5-5.1) mmol/L Carbon Dioxide (22-30) mmol/L BUN (9-20) mg/dL Creatinine (0.66-1.25) mg/dL Glucose (74-99) mg/dL POC Glucose (mg/dL) 114 H 130 H 106 H (75-99) mg/dL AST (17-59) U/L Total Protein (6.3-8.2) g/dL 12/28/20 12/28/20 12/28/20 Range/Units 07:47 07:47 11:51 WBC 3.4 L (3.8-10.6) k/uL RBC 3.81 L (4.30-5.90) m/uL Hgb 10.8 L (13.0-17.5) gm/dL Hct 32.7 L (39.0-53.0) % RDW 16.4 H (11.5-15.5) % Potassium 2.9 L (3.5-5.1) mmol/L Carbon Dioxide 20 L (22-30) mmol/L BUN 27 H (9-20) mg/dL Creatinine 1.46 H (0.66-1.25) mg/dL Glucose 111 H (74-99) mg/dL POC Glucose (mg/dL) 101 H (75-99) mg/dL AST 74 H (17-59) U/L Total Protein 6.1 L (6.3-8.2) g/dL Assessment and Plan Plan: Assessment: 1. Acute kidney injury secondary to ATN secondary to cardiorenal syndrome. Also component of contrast-induced acute kidney injury. Renal function i mproved. Patient received IV contrast dye on December 23 for cardiac catheterization. 2. Acute on chronic systolic CHF with ejection fraction of 20%. 3. Chronic kidney disease stage IIIa with baseline creatinine near 1.3. 4. Metabolic acidosis secondary to acute kidney injury and IV fluids. Mainta ined on oral bicarbonate. 5. Volume overload. Improving with diuresis. 6. Hypokalemia from diuresis. Being replaced. Magnesium slightly on the lower side. Plan: Dobutamine stopped December 24. Maintain oral Lasix 40 mg once daily. Encouraged oral intake. Avoid nephrotoxins. Continue to monitor renal function and urine output. Potassium being replaced. I will give him 2 g of IV magnesium today.
[2020-12-28] MEDS: MAGNESIUM SULFATE-D5W PMX 1 GM in DEXTROSE/WATER 1 100ML.BAG IVPB SCH ×2 (14:50→17:03)
--- NOTE | 2020-12-28 16:16 | P.PN ---
Subjective Progress Note Date: 12/28/20 Principal diagnosis: PEA, unresponsiveness 70-year-old white male patient with history of ischemic cardiomyopathy with EF of 20-25% currently without AICD, coronary artery disease with previous of coronary artery bypass grafting in 1999, and subsequent stent placement most recently in May 2019, diabetes mellitus type 2, previous history of myocardial infarction, hypertension, hyperlipidemia, osteoarthritis, lifetime nonsmoker who came into the emergency department on 12/19/2020 complaining of shortness of breath, wheezing, orthopnea. His initial chest x-ray showed car diomegaly which was mild, mild vascular congestion/pulmonary edema, and small bilateral pleural effusions. Patient also reported increased lower extremity edema, however did not have any chest pain or chest pressure, he was evaluated by cardiology, he did have elevated troponins of 0.077, and 0.078, his admission proBNP was 10,700. He was given a diagnosis of acute exacerbation of chronic CHF with systolic dysfunction, he was started on IV diuretics. he underwent cardiac catheterization on 12/23/2020 and was found to have stable coronary artery disease with patent GAYLE to the LAD and a widely open circumflex and right coronary artery at the previously stented areas. Medical therapy was r ecommended. However on 12/23/2020 at around 2230 patient had gotten up to the bathroom, and had a fall, he was then unresponsive, and lost pulse. When he was connected to the monitor patient a core into the code sheet was in normal sinus rhythm with first-degree AV block. Brief CPR was given, with return of spontaneous circulation, patient does not require any epinephrine, or intubation, patient subsequently came to, there was a suspicion of seizure-like activity. Patient was transferred to the intensive care unit for further monitoring. In the ICU she was started on dobutamine drip at 3 units per kilo per minute, his point on the same infusing at 50 ML per hour, his chest x-ray shows changes consistent with pulmonary vessel congestion, CHF. Brain CT showed no acute intracranial abnormality. He remains in sinus mechanism, with a controlled rate, no arrhythmias since admission to the intensive care unit, he remains on gentle IV hydration with 0.9 at 50 ML per hour, his renal function is stable since yesterday, with BUN of 38 and creatinine of 2.14. His urine output is around 50-100 ML per hour, his oxygen requirement is currently at 2 L, his pulse ox is 96%, no signs of any acute respiratory distress at this time, no complaints of chest pain. No fever, blood pressures 131/74. On 12/25/2000 patient in follow-up in intensive care unit, he is awake and alert, oriented 3, breathing comfortably, no acute events overnight, dysrhythmias or bradycardias. He is currently on room air, pulse ox 95%, does complain of some chest wall soreness from previous CPR, exacerbated with movement. No cough or congestion, low-grade fever this morning temp of 99.3F, he is in sinus mechanism, his 0.9 normal saline is running at 10 ML per hour, rib x-rays pending. No episodes of syncope, neurology is following. Brain CT showed no acute hemorrhage hydrocephalus or mass effect, EEG did not show seizures, no focal slowing or epileptiform discharges. His labs have been reviewed, white blood cell count is 3.5, hemoglobin is 10.4, sodium is 133, potassium is 4.3, chloride is 102, CO2 is 21, BUN is 42, creatinine is 2.46. BNP is improved is down to 7250, urinalysis shows moderate, 2+ protein, rare bacteria, culture has been sent, patient has had no fever or chills, no urinary symptoms. On 12/26/2020 patient seen in follow-up in the intensive care unit, since yesterday he has developed abdominal pain, and distention, and imaging was done, abdominal x-ray showed gas-filled distended large bowels related to ileus, no free air. CT of the abdomen and pelvis without contrast showed findings suggestive of large bowel ileus, but no suspicion for mechanical bowel obstruction, and there was mild ascites. Bilateral pleural effusions and bibasilar pulmonary infiltrates were noted suggestive of congestive heart failure. Patient developed nausea and vomiting as well. He is currently nothing by mouth, he was given enemas, he started passing small amount of stool, and a little bit of gas, he states his abdomen is less distended and he feels lightly reviewed, no worsening dyspnea, he still on 2 L of oxygen, his pulse ox is 94%, he's had no fever or chills, no chest pain. His had no arrhythmias overnight. A occasional cough, yesterday he was complaining of chest discomfort along her right lower ribs, rib x-ray showed normal bilateral ribs, without evidence of acute fractures. His labs have been reviewed, showing white blood cell, 3.5, hemoglobin of 9.9, sodium is 133, potassium is 3.9, CO2 17, and renal profile is stable, with BUN of 43 and creatinine of 2.2. Patient was given a dose of IV Lasix yesterday. His weight is down by 0.8 kg On 12/27/2020 patient seen in follow-up in the intensive care unit, he is awake and alert, in no acute distress, is currently on 2 L of oxygen pulse ox is 94%, vital signs are stable, no fever or chills, breathing fernández she is very stable, lung sounds are clear, no rhonchi wheezing or crackles. No cough or congestion, no complaints of chest pain. No dysrhythmias on the monitor, abdomen is soft, less distended, she has been started on clear liquid diet, abdomen is nontender, patient is passing some liquid brown output per rectum, he is still receiving MiraLAX and enemas. He is awaiting surgical evaluation. Otherwise he's had no acute events overnight On 12/28/2020 patient seen in follow-up on medical floor. Is currently awake, in no acute distress, he is resting in bed, denies any shortness of breath, no chest pain, transfer out of intensive care unit yesterday, has had no acute events overnight, no further episodes of unresponsiveness or arrhythmias, lung sounds are clear, pulse ox is 95%, no fever or chills, abdomen is soft, nontender, hypoactive bowel sounds, no abdominal pain, patient continues to have liquid greenish colored watery stools, continues on popsicles and clear liquid diet, tolerating them well so far. His labs have been reviewed, showing white blood cell, 3.4, hemoglobin of 10.8, potassium is 2.9, CO2 is 20, BUN is 27 creatinine is 1.46 Objective - Vital Signs Vital signs: Vital Signs Temp 97.7 F 12/28/20 12:22 Pulse 69 12/28/20 12:22 Resp 16 12/28/20 12:22 BP 130/74 12/28/20 12:22 Pulse Ox 95 12/28/20 12:22 Intake & Output 12/27/20 12/28/2021 18:59 06:59 18:59 Output Total 500 1 Balance -500 -1 Weight 94 kg Output: Urine 500 Stool 1 Other: Voiding Method Urinal Urinal # Voids 2 2 # Bowel Movements 2 4 2 - Exam GENERAL EXAM: Alert, very pleasant, 70-year-old white male,on room air 94% comfortable in no apparent distress. HEAD: Normocephalic/atraumatic. EYES: Normal reaction of pupils, equal size. Conjunctiva pink, sclera white. NOSE: Clear with pink turbinates. THROAT: No erythema or exudates. NECK: No masses, no JVD, no thyroid enlargement, no adenopathy. CHEST: No chest wall deformity. Symmetrical expansion. LUNGS: Equal air entry with mild crackles, no wheeze, rhonchi or dullness. CVS: Regular rate and rhythm, normal S1 and S2, no gallops, no murmurs, no rubs ABDOMEN: Soft, nontender. No hepatosplenomegaly, normal bowel sounds, no guarding or rigidity. EXTREMITIES: No clubbing, no edema, no cyanosis, 2+ pulses and upper and lower extremities. MUSCULOSKELETAL: Muscle strength and tone normal. SPINE: No scoliosis or deformity SKIN: No rashes CENTRAL NERVOUS SYSTEM: Alert and oriented -3. No focal deficits, tone is normal in all 4 extremities. PSYCHIATRIC: Alert and oriented -3. Appropriate affect. Intact judgment and insight. - Labs CBC & Chem 7: 12/28/20 07:47 12/28/20 07:47 Labs: Abnormal Lab Results - Last 24 Hours (Table) 12/27/20 12/27/20 12/28/20 Range/Units 17:32 20:48 07:23 WBC (3.8-10.6) k/uL RBC (4.30-5.90) m/uL Hgb (13.0-17.5) gm/dL Hct (39.0-53.0) % RDW (11.5-15.5) % Potassium (3.5-5.1) mmol/L Carbon Dioxide (22-30) mmol/L BUN (9-20) mg/dL Creatinine (0.66-1.25) mg/dL Glucose (74-99) mg/dL POC Glucose (mg/dL) 114 H 130 H 106 H (75-99) mg/dL AST (17-59) U/L Total Protein (6.3-8.2) g/dL 12/28/20 12/28/20 12/28/20 Range/Units 07:47 07:47 11:51 WBC 3.4 L (3.8-10.6) k/uL RBC 3.81 L (4.30-5.90) m/uL Hgb 10.8 L (13.0-17.5) gm/dL Hct 32.7 L (39.0-53.0) % RDW 16.4 H (11.5-15.5) % Potassium 2.9 L (3.5-5.1) mmol/L Carbon Dioxide 20 L (22-30) mmol/L BUN 27 H (9-20) mg/dL Creatinine 1.46 H (0.66-1.25) mg/dL Glucose 111 H (74-99) mg/dL POC Glucose (mg/dL) 101 H (75-99) mg/dL AST 74 H (17-59) U/L Total Protein 6.1 L (6.3-8.2) g/dL Assessment and Plan Plan: Assessment: #1. Acute hypoxic respiratory failure related to acute exacerbation of systolic CHF #2. Cardiac arrest, PEA requiring brief CPR with return of spontaneous circulation 12/23/2020 related to the above, possibility of seizures is not excluded, neurology consultation has been requested. CT brain shows no acute abnormality. EEG was within normal limits, no evidence of seizures or epileptiform discharges or background slowing #3. Acute kidney injury #4. Coronary artery disease, with previous bypass grafting and subsequent stenting. Patient underwent cardiac catheterization on 12/23/2020 showing stable chronic coronary artery disease with patent GAYLE to the LAD and circumflex and RCA stents patent #5. Ischemic cardiomyopathy #6. Nonsmoker #7. Diabetes mellitus #8. Troponin leak rule out possibility of non-ST elevated CT #9. Onset atrial fibrillation started on IV amiodarone #10. Hypertension #11. Hyperlipidemia #12. Acute ileus, with abdominal distention, nausea and vomiting, abdominal x- ray and CT imaging of the abdomen and pelvis showed colonic distention, but no suspicion for mechanical obstruction Plan: No acute issues overnight, breathing comfortably, patient is maintaining stable to saturations on room air, abdomen is soft, nontender, surgical services are following, no surgical intervention was recommended at this time, pulmonary perspective she stable for discharge when cleared by cardiology, surgery and medical team. I performed a history & physical examination of the patient and discussed their management with my nurse practitioner, Ariadna Cadena. I reviewed the nurse practitioner's note and agree with the documented findings and plan of care. Lung sounds are positive for diminished breath sounds.. The findings and the impression was discussed with the patient. I attest to the documentation by the nurse practitioner. Time with Patient: Less than 30
[2020-12-28 17:26] LABS: Glucose,Whole Blood 192 mg/dL (75-99)
[2020-12-28 20:37] LABS: Glucose,Whole Blood 106 mg/dL (75-99)
[2020-12-28] MEDS: polyethylene glycoL 3350 17 GM POWD.PACK PO SCH (21:18)
[2020-12-29 07:53] LABS: Glucose,Whole Blood 103 mg/dL (75-99)
[2020-12-29] MEDS: INSULIN ASPART (NovoLOG) 100 UNIT/ML VIAL SQ SCH ×4 (08:18→21:17)
[2020-12-29] MEDS: FUROSEMIDE 40 MG TAB PO SCH (08:20)
[2020-12-29] MEDS: CHOLECALCIFEROL 25 MCG (1000 IU) TABLET PO SCH (08:20)
[2020-12-29] MEDS: ISOSORBIDE MONONITRATE ER 30 MG TAB.ER.24H PO SCH (08:20)
[2020-12-29] MEDS: ATORVASTATIN 80 MG TAB PO SCH (08:20)
[2020-12-29] MEDS: CLOPIDOGREL 75 MG TAB PO SCH (08:20)
[2020-12-29] MEDS: METOPROLOL TARTRATE 50 MG TAB PO SCH ×2 (08:20→21:17)
[2020-12-29] MEDS: PANTOPRAZOLE 40 MG TABLET PO SCH (08:20)
[2020-12-29] MEDS: APIXABAN 5 MG TAB PO SCH ×2 (08:20→21:18)
[2020-12-29] MEDS: LOSARTAN 25 MG TAB PO SCH (08:21)
[2020-12-29] MEDS: TAMSULOSIN 0.4 MG CAP.ER.24H PO SCH ×2 (08:22→21:18)
[2020-12-29] MEDS: AMIODARONE 200 MG TAB PO SCH ×2 (08:22→21:18)
[2020-12-29] MEDS: allopurinoL 100 MG TAB PO SCH (08:22)
[2020-12-29] MEDS: SODIUM BICARBONATE TAB 650 MG TAB PO SCH ×3 (08:23→21:17)
[2020-12-29 09:09] LABS: HCT 32.8 % (39.6-50.0); HGB 10.2 g/dL (13.0-17.0); MCH 27.3 pg (27.0-32.0); MCHC 31.1 g/dL (32.0-37.0); MCV 87.7 fL (80.0-97.0); Mean Platelet Volume 10.3 fL (9.5-12.2); Platelet Count 165 X 10*3/uL (140-440); RBC 3.74 X 10*6/uL (4.40-5.60); RDW 16.4 % (11.5-14.5)
[2020-12-29] MEDS ORDERED: POTASSIUM CHLORIDE ER 20 MEQ TAB.ER PO STA (09:58)
[2020-12-29 10:24] LABS: African American GFR (CKD) 54.3 (60.0-200.0); Anion Gap 11.9 mmol/L (4.00-12.00); BUN/Creat Ratio 18.67 Ratio (12.00-20.00); Calcium 8.7 mg/dL (8.7-10.3); Carbon Dioxide 19.1 mmol/L (21.6-31.8); Magnesium 1.8 mg/dL (1.5-2.4); Non-African American GFR(CKD) 46.8 (60.0-200.0); Potassium 3.2 mmol/L (3.5-5.5)
--- NOTE | 2020-12-29 11:18 | P.PN ---
Subjective Progress Note Date: 12/29/20 Principal diagnosis: shortness of breath Patient is a 70-year-old male with a past medical history of coronary artery disease with history of CABG in 1999, diabetes mellitus type 2, hypertension, and dyslipidemia who presented to the emergency room with shortness of breath. He was subsequently found to have an acute exacerbation of systolic congestive heart failure. He was tachypneic and hypoxic on presentation. He was started on IV heparin due to an elevated troponin. He was started on Lasix and admitted. Cardiology was consulted who agreed with continuing Lasix and IV heparin. He had some optimal diuresis and therefore his Lasix was increased to 80 mg every 8 hours. Due to his low ejection fraction of 20-25% which was newly discovered plan was for cardiac catheterization, this was completed on 12/23 his stent were found to be patent LAD was widely open, with no additional intervention required. He was noted to have worsening renal function and his lisinopril was discontinued. He was transitioned off of heparin drip and onto Eliquis. He was also started on dobutamine. He did go into A. fib and was started on IV amiodarone and then transitioned to oral amiodarone. He was noted to have worsening renal function was seen by nephrology on 12/23. They agreed with continuing dobutamine drip and maintaining a systolic blood pressure greater than 110. On the evening of 12/23 patient seen in follow going to the bathroom and was found to be unresponsive with possible loss of pulses. CPR was initiated and after 1 round of CPR ROSC was noted, concern for possible vasovagal episode. He was awake and alert and did not require intubation. He was transferred to the ICU in critical care was consulted. There was some concern of possible seizure activity versus true cardiac arrest. Head CT was completed which showed no acute process, EEG was normal. His transitioned off of dobutamine on 12/24. He developed abdominal distension, nausea, and abdominal pain on 12/[address] demonstrated large bowel ileus. He did have an enema which resulted in liquid bowel movement and he had one large formed BM the morning of 12/26, the rest were liquid. His renal function was slowly improving and he was kept on lasix. He started having multiple liquid bowel movements. He continued to have some liquid bowel movements but was tolerating a diet. Patient seen and examined at bedside. Moving around and getting better, still feeling hungry, liquid stool is still consisting, has returned from green to black. Lower extremity edema still present. Wants to go home tomorrow. We discussed needing to perform a home O2 eval today. General: non toxic,no distress distress, appears at stated age Derm: warm, dry Head: atraumatic, normocephalic, symmetric Eyes: EOMI, no lid lag, anicteric sclera Mouth: no lip lesion, mucus membranes dry Cardiovascular: S1-S2 regular, no murmur, positive posterior tibial pulse bilateral, Lungs: Decreased bs bilateral bases, no accessory muscle use Abdominal: + bowel sounds, soft, nontender to palpation, no guarding, no apprec iable organomegaly Ext: no gross muscle atrophy, 2+ edema bilaterally with left greater than right, no contracture Neuro: CN II-XI grossly intact, no focal neuro deficits Psych: Alert, oriented, appropriate affect Acute exacerbation of systolic congestive heart failure with ejection fraction 20-25% -Cardiology recommendations appreciated -Strict I's and O's, daily weights -Lopressor, losartan -Off dobutamine -Lasix once daily large bowel ileus -Advance to regular diet -Repeat x-ray in a.m. - s/p enema X 1 - Surgery recs appreciated - encourage up to chair and moving - up to chair, increase ambulation as able. Hypokalemia - replace and recheck in AM - suspect related to lasix and diarrhea Acute kidney injury, likely cardiorenal component of exposure to IV contrast dye, metabolic acidosis -Nephrology recs appreciated -Lasix once daily -Off fluids -On oral bicarb Acute hypoxic respiratory failure -wean O2 as able New-onset Paroxysmal A. fib -Started on IV amiodarone and then transitioned to oral amiodarone -Eliquis Non-STEMI with history of coronary artery disease and CABG -Cath with patent GAYLE to LAD and prior stents, no intervention needed -Continue with Plavix, Lipitor, Imdur, Lopressor Iron deficiency anemia -Follow CBC -No indication for transfusion at this point in time. -Recommend colonoscopy as outpatient in light of ileus, frequent use of imodium at home, and iron deficiency Diabetes mellitus type 2 - off metformin - SSI - follow BS - A1C 6 Hypertension - controlled - Continue with metoprolol - follow BP Dyslipidemia - Statin Hypomagnesemia, resolved thrombocytopenia, resolved Cardiac event possible syncope vs cardiac arrest DVT prophylaxis: Cara Discussed with: patient, nursing Anticipated discharge: in AM Anticipated discharge place: A total of 35 minutes was spent on the care of this complex patient more than 50% of the time was spent in counseling and care coordination. Objective - Vital Signs Vital signs: Vital Signs Temp 98.5 F 12/29/20 05:20 Pulse 73 12/29/20 05:20 Resp 20 12/29/20 05:20 BP 138/81 12/29/20 05:20 Pulse Ox 95 12/28/20 20:00 Intake & Output 12/28/20 12/29/20 12/29/20 18:59 06:59 18:59 Intake Total 100 Balance 100 Weight 92.8 kg Intake: Oral 100 Other: # Voids 4 3 # Bowel Movements 3 - Labs CBC & Chem 7: 12/29/20 06:20 12/29/20 09:28 Labs: Abnormal Lab Results - Last 24 Hours (Table) 12/28/20 12/28/20 12/28/20 Range/Units 11:51 17:24 20:34 WBC (4.50-10.00) X 10*3/uL RBC (4.40-5.60) X 10*6/uL Hgb (13.0-17.0) g/dL Hct (39.6-50.0) % MCHC (32.0-37.0) g/dL RDW (11.5-14.5) % Potassium (3.5-5.5) mmol/L Carbon Dioxide (21.6-31.8) mmol/L BUN (9.0-27.0) mg/dL Est GFR (CKD-EPI)AfAm (60.0-200.0) Est GFR (CKD-EPI)NonAf (60.0-200.0) POC Glucose (mg/dL) 101 H 192 H 106 H (75-99) mg/dL 12/29/20 12/29/20 12/29/20 Range/Units 06:20 06:20 07:52 WBC 2.90 L (4.50-10.00) X 10*3/uL RBC 3.74 L (4.40-5.60) X 10*6/uL Hgb 10.2 L (13.0-17.0) g/dL Hct 32.8 L (39.6-50.0) % MCHC 31.1 L (32.0-37.0) g/dL RDW 16.4 H (11.5-14.5) % Potassium 3.2 L (3.5-5.5) mmol/L Carbon Dioxide 19.1 L (21.6-31.8) mmol/L BUN 28.0 H (9.0-27.0) mg/dL Est GFR (CKD-EPI)AfAm 54.3 L (60.0-200.0) Est GFR (CKD-EPI)NonAf 46.8 L (60.0-200.0) POC Glucose (mg/dL) 103 H (75-99) mg/dL 12/29/20 Range/Units 09:28 WBC (4.50-10.00) X 10*3/uL RBC (4.40-5.60) X 10*6/uL Hgb (13.0-17.0) g/dL Hct (39.6-50.0) % MCHC (32.0-37.0) g/dL RDW (11.5-14.5) % Potassium 3.3 L (3.5-5.5) mmol/L Carbon Dioxide (21.6-31.8) mmol/L BUN (9.0-27.0) mg/dL Est GFR (CKD-EPI)AfAm (60.0-200.0) Est GFR (CKD-EPI)NonAf (60.0-200.0) POC Glucose (mg/dL) (75-99) mg/dL
--- NOTE | 2020-12-29 11:20 | XR ---
EXAMINATION TYPE: XR KUB DATE OF EXAM: 12/29/2020 COMPARISON: CT abdomen pelvis 12/25/2020 INDICATION: Follow-up ileus TECHNIQUE: Single view abdomen upright view FINDINGS: There are dilated bowel loops within the upper abdomen which can be compatible with ileus. These appe ar to be colonic. There is some nonspecific small bowel loops within the lower pelvis which are not dilated. Psoas margins are normal. No organomegaly is present. IMPRESSION: 1. Dilated prominent transverse colon. Correlate for colonic ileus.
[2020-12-29 11:49] LABS: Glucose,Whole Blood 119 mg/dL (75-99)
[2020-12-29] MEDS: FERROUS SULFATE 325 MG TAB PO SCH (12:04)
[2020-12-29] MEDS: HYDROcodone/APAP 5-325MG 1 EACH TAB PO PRN ×2 (14:16→19:27)
--- NOTE | 2020-12-29 14:27 | P.PN ---
Subjective Progress Note Date: 12/29/20 Principal diagnosis: ICU management. On 12/26/2020 patient seen in follow-up in the intensive care unit, since yesterday he has developed abdominal pain, and distention, and imaging was done, abdominal x-ray showed gas-filled distended large bowels related to ileus, no free air. CT of the abdomen and pelvis without contrast showed findings suggestive of large bowel ileus, but no suspicion for mechanical bowel obstruction, and there was mild ascites. Bilateral pleural effusions and bibasilar pulmonary infiltrates were noted suggestive of congestive heart failure. Patient developed nausea and vomiting as well. He is currently nothing by mouth, he was given enemas, he started passing small amount of stool, and a little bit of gas, he states his abdomen is less distended and he feels lightly reviewed, no worsening dyspnea, he still on 2 L of oxygen, his pulse ox is 94%, he's had no fever or chills, no chest pain. His had no arrhythmias overnight. A occasional cough, yesterday he was complaining of chest discomfort along her right lower ribs, rib x-ray showed normal bilateral ribs, without evidence of acute fractures. His labs have been reviewed, showing white blood cell, 3.5, hemoglobin of 9.9, sodium is 133, potassium is 3.9, CO2 17, and renal profile is stable, with BUN of 43 and creatinine of 2.2. Patient was given a dose of IV Lasix yesterday. His weight is down by 0.8 kg On 12/27/2020 patient seen in follow-up in the intensive care unit, he is awake and alert, in no acute distress, is currently on 2 L of oxygen pulse ox is 94%, vital signs are stable, no fever or chills, breathing fernández she is very stable, lung sounds are clear, no rhonchi wheezing or crackles. No cough or congestion, no complaints of chest pain. No dysrhythmias on the monitor, abdomen is soft, less distended, she has been started on clear liquid diet, abdomen is nontender, patient is passing some liquid brown output per rectum, he is still receiving MiraLAX and enemas. He is awaiting surgical evaluation. Otherwise he's had no acute events overnight On 12/28/2020 patient seen in follow-up on medical floor. Is currently awake, in no acute distress, he is resting in bed, denies any shortness of breath, no chest pain, transfer out of intensive care unit yesterday, has had no acute events overnight, no further episodes of unresponsiveness or arrhythmias, lung sounds are clear, pulse ox is 95%, no fever or chills, abdomen is soft, nontender, hypoactive bowel sounds, no abdominal pain, patient continues to have liquid greenish colored watery stools, continues on popsicles and clear liquid diet, tolerating them well so far. His labs have been reviewed, showing white blood cell, 3.4, hemoglobin of 10.8, potassium is 2.9, CO2 is 20, BUN is 27 creatinine is 1.46 Progress note dated 12/29/2020. The patient is again seen today, on December 29, in room 523. He is resting comfortably. He mostly complains of some abdominal distention, with some mild nausea. Patient denies any shortness of breath, cough, wheezing, phlegm production, chest pain, chest discomfort, or fever or chills. He was discharged out of the intensive care unit a couple days ago. His room air saturation is 95%. His potassium is 3.3, white count 2.9, hemoglobin 10.2, hematocrit 32.8, and platelet count 165,000. Sodium 138, potassium 3.3, chlorides 107, CO2 19, anion gap is 12, BUN 28, creatinine 1.5. A KUB film done today showed a dilated prominent transverse colon, which could be consistent with colonic ileus. Objective - Vital Signs Vital signs: Vital Signs Temp 98.5 F 12/29/20 05:20 Pulse 73 12/29/20 05:20 Resp 20 12/29/20 05:20 BP 138/81 12/29/20 05:20 Pulse Ox 95 12/28/20 20:00 Intake & Output 12/28/20 12/29/20 12/29/20 18:59 06:59 18:59 Intake Total 100 Balance 100 Weight 92.8 kg Intake: Oral 100 Other: # Voids 4 3 # Bowel Movements 3 - Exam GENERAL EXAM: Alert, very pleasant, 70-year-old white male,on room air 96% comfortable in no apparent distress. HEAD: Normocephalic/atraumatic. EYES: Normal reaction of pupils, equal size. Conjunctiva pink, sclera white. NOSE: Clear with pink turbinates. THROAT: No erythema or exudates. NECK: No masses, no JVD, no thyroid enlargement, no adenopathy. CHEST: No chest wall deformity. Symmetrical expansion. LUNGS: Equal air entry with mild crackles, no wheeze, rhonchi or dullness. CVS: Regular rate and rhythm, normal S1 and S2, no gallops, no murmurs, no rubs. Heart rate 73 bpm. ABDOMEN: Mildly distended, without tenderness. No bowel sounds noted. Mildly tympanitic. EXTREMITIES: No clubbing, no edema, no cyanosis, 2+ pulses and upper and lower extremities. MUSCULOSKELETAL: Muscle strength and tone normal. SPINE: No scoliosis or deformity SKIN: No rashes CENTRAL NERVOUS SYSTEM: Alert and oriented -3. No focal deficits, tone is normal in all 4 extremities. PSYCHIATRIC: Alert and oriented -3. Appropriate affect. Intact judgment and insight. - Labs CBC & Chem 7: 12/29/20 06:20 12/29/20 09:28 Labs: Abnormal Lab Results - Last 24 Hours (Table) 12/28/20 12/28/20 12/29/20 Range/Units 17:24 20:34 06:20 WBC 2.90 L (4.50-10.00) X 10*3/uL RBC 3.74 L (4.40-5.60) X 10*6/uL Hgb 10.2 L (13.0-17.0) g/dL Hct 32.8 L (39.6-50.0) % MCHC 31.1 L (32.0-37.0) g/dL RDW 16.4 H (11.5-14.5) % Potassium (3.5-5.5) mmol/L Carbon Dioxide (21.6-31.8) mmol/L BUN (9.0-27.0) mg/dL Est GFR (CKD-EPI)AfAm (60.0-200.0) Est GFR (CKD-EPI)NonAf (60.0-200.0) POC Glucose (mg/dL) 192 H 106 H (75-99) mg/dL 12/29/20 12/29/20 12/29/20 Range/Units 06:20 07:52 09:28 WBC (4.50-10.00) X 10*3/uL RBC (4.40-5.60) X 10*6/uL Hgb (13.0-17.0) g/dL Hct (39.6-50.0) % MCHC (32.0-37.0) g/dL RDW (11.5-14.5) % Potassium 3.2 L 3.3 L (3.5-5.5) mmol/L Carbon Dioxide 19.1 L (21.6-31.8) mmol/L BUN 28.0 H (9.0-27.0) mg/dL Est GFR (CKD-EPI)AfAm 54.3 L (60.0-200.0) Est GFR (CKD-EPI)NonAf 46.8 L (60.0-200.0) POC Glucose (mg/dL) 103 H (75-99) mg/dL 12/29/20 Range/Units 11:46 WBC (4.50-10.00) X 10*3/uL RBC (4.40-5.60) X 10*6/uL Hgb (13.0-17.0) g/dL Hct (39.6-50.0) % MCHC (32.0-37.0) g/dL RDW (11.5-14.5) % Potassium (3.5-5.5) mmol/L Carbon Dioxide (21.6-31.8) mmol/L BUN (9.0-27.0) mg/dL Est GFR (CKD-EPI)AfAm (60.0-200.0) Est GFR (CKD-EPI)NonAf (60.0-200.0) POC Glucose (mg/dL) 119 H (75-99) mg/dL Assessment and Plan Assessment: #1. Acute hypoxic respiratory failure related to acute exacerbation of systolic CHF. #2. Cardiac arrest, PEA requiring brief CPR with return of spontaneous circulation 12/23/2020 related to the above, possibility of seizures is not excl uded, neurology consultation has been requested. CT brain shows no acute abnormality. EEG was within normal limits, no evidence of seizures or epileptiform discharges or background slowing. #3. Acute kidney injury. #4. Coronary artery disease, with previous bypass grafting and subsequent stent ing. Patient underwent cardiac catheterization on 12/23/2020 showing stable chronic coronary artery disease with patent GAYLE to the LAD and circumflex and RCA stents patent. #5. Ischemic cardiomyopathy. #6. Nonsmoker. #7. Diabetes mellitus. #8. Troponin leak rule out possibility of non-ST elevated WA. #9. Onset atrial fibrillation started on IV amiodarone. #10. Hypertension. #11. Hyperlipidemia. #12. Acute ileus, with abdominal distention, nausea and vomiting, abdominal x- ray and CT imaging of the abdomen and pelvis showed colonic distention, but no suspicion for mechanical obstruction. Plan: Plan dated 12/29/2020. Currently, from the pulmonary standpoint, the patient is very stable. The patient's on room air, and saturation today is in the mid to high 90s. His big issue now is his abdominal distention. He feels a bit nauseated. KUB film shows a potential colonic ileus. Additional recommendations and suggestions are forthcoming. After today, we'll see the patient as needed unless he develops an acute respiratory issue. Prognosis is guarded. Time with Patient: Less than 30
--- NOTE | 2020-12-29 14:35 | PN ---
PROGRESS NOTE Patient is seen for followup for acute kidney injury. Renal function has improved. The patient also has underlying chronic kidney disease. The patient is being diuresed. He is maintained on oral Lasix. He is also maintained on a small dose of Cozaar. Serum creatinine is 1.5, which is down from 2.4 at peak on 12/25/2020. EXAMINATION: Today blood pressure 138/81, heart rate 73 per minute, he is afebrile. Examination of the heart S1, S2. Examination of the lungs, bilateral breath sounds are heard. Abdomen is soft, nontender. Examination lower extremities shows edema 1+ bilaterally. 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 LAB: Show sodium of 138, potassium 3.2, chloride 107, CO2 is 19, BUN 28, creatinine 1.5, calcium 8.7, magnesium 1.8. ASSESSMENT: 1. Acute kidney injury, currently improving, mostly cardiorenal and a component of contrast induced nephropathy. 2. Acute on chronic systolic congestive heart failure. 3. Cardiomyopathy, ejection fraction 20%. 4. Chronic kidney disease, stage 3A, baseline creatinine 1.3. 5. Metabolic acidosis associated with acute kidney injury, maintained on oral bicarb. 6. Volume overload now improved. 7. Hypokalemia from diuresis, being replaced. PLAN: Replace potassium. Continue with oral Lasix. Repeat labs in a.m. Follow up as outpatient. MMODL / IJN: [id number] /
[2020-12-29 17:57] LABS: Glucose,Whole Blood 124 mg/dL (75-99)
[2020-12-29] MEDS: ALBUTEROL NEBULIZED 2.5 MG/3 ML INHALATION PRN (20:22)
[2020-12-29 20:38] LABS: Glucose,Whole Blood 194 mg/dL (75-99)
[2020-12-29] MEDS ORDERED: FUROSEMIDE 10 MG/ML 4 ML VIAL IV STA (20:45)
[2020-12-29] MEDS: ACETAMINOPHEN TAB 325 MG TAB PO PRN (21:16)
--- NOTE | 2020-12-29 21:28 | XR ---
EXAMINATION TYPE: XR chest 1V portable DATE OF EXAM: 12/29/2020 COMPARISON: 12/23/2020 HISTORY: Short of breath TECHNIQUE: Single view FINDINGS: Heart is enlarged. There is some probably vascular congestion. There is pulmonary patchy ai rspace edema. There are sternal wires. There is mild blunting of the right costophrenic angle. IMPRESSION: There is evidence for congestive heart failure that is slightly worse than last exam. Rig ht pleural effusion noted.
[2020-12-29] MEDS: ALPRAZolam 0.25 MG TAB PO PRN (22:43)
[2020-12-30 00:16] LABS: Glucose,Whole Blood 135 mg/dL (75-99)
[2020-12-30] MEDS ORDERED: ALPRAZolam 0.25 MG TAB PO PRN (00:28)
[2020-12-30] MEDS ORDERED: VANCOMYCIN IV PER PHARMACY 1 EACH MISC MISCELLANE PRN (00:43)
[2020-12-30 00:52] LABS: Glucose,Whole Blood 111 mg/dL (75-99)
[2020-12-30] MEDS ORDERED: VANCOMYCIN 2,000 MG in SODIUM CHLORIDE 0.9% 500 ML 500 ML IVPB ONE (01:00)
[2020-12-30] MEDS: ALPRAZolam 0.25 MG TAB PO PRN (01:14)
--- NOTE | 2020-12-30 01:25 | P.EN ---
A team called on this patient , for worsening hypoxemia ,and increase work of breathing 70 year old male was admitted for acute hypoxic respiratory failure from CHF exacerbation , NSTEMI s/p cath with recommendations for maximal medical management at this time, he experienced PEA cardiac arrest was brief. he was discharge from ICU couple days ago, he was doing well this morning , having some large bowel ileus , but started having liquid bowel movement , plans were for discharge in AM . This evening he started having increase work of breathing, CXR repeated, and showed worsening right pleural effusion and patchy airspace disease diffuse infilterate vs pulmonary congestion , a trial of lasix given IV (he is currently on oral lasix) , then patient started having some productive cough, with increase work of breathing and hypoxemia to low 80% , he is also having spikes of fever. He denies any chest pain , or leg swelling. he denies any abd pain , nausea or vomiting on exam patient is in acute respiratory distress , unable to talk, diaphoretic, and tachypnic. alert, awake, makes good eye contact. follows commands lungs, decrease breath sounds right lung base, no wheezing or rales CVS tachycardia, normal s1 s2 bilateral pitting peripheral edema +2 abd mild distention , no tenderness patient has not urinated since lasix acute hypoxic respiratory failure spikes of fever , despite giving tylenol , rule out pneumonia , vs UTI plan patient was given one dose of IV lasix 40 mg bladder scan <100 cc, no estrada cath in place sputum Cx , blood Cx and UA and culture start empiric antibiotics with vanc and zosyn , for possible hospital acquired pneumonia check CBC, CMP, lactic acid close monitor of vital signs encourage to use bipap (currently on non rebreather , oxygen sat mid 80%) xanax to help tolerate bipap transfer patient to step down unit tylenol for fever 45 minutes were spent in critical care time in the care of this complex patient
[2020-12-30] MEDS: PIPERACILLIN-TAZOBACTAM 3.375 GM in SODIUM CHLORIDE 0.9% 100 ML IVPB SCH ×3 (01:29→16:52)
[2020-12-30 01:48] LABS: Anisocytosis Slight; Basophils % (A) 0 %; Eosinophils % (A) 0 %; HCT 33.8 % (39.0-53.0); HGB 11.2 gm/dL (13.0-17.5); Hypochromasia Slight; Lymphocytes # (A) 0.2 k/uL (1.0-4.8); Lymphocytes % (A) 2 %; MCH 28.6 pg (25.0-35.0); MCV 86.7 fL (80.0-100.0); Mean Platelet Volume 7.8; Monocytes # (A) 0.2 k/uL (0-1.0); Monocytes % (A) 3 %; Neutrophils # (A) 8.8 k/uL (1.3-7.7); Neutrophils % (A) 94 %; Platelet Count 163 k/uL (150-450); RDW 16.4 % (11.5-15.5); WBC 9.3 k/uL (3.8-10.6)
[2020-12-30 01:58] LABS: Albumin 3.8 g/dL (3.5-5.0); Calcium 8.7 mg/dL (8.4-10.2); Total Bilirubin 0.8 mg/dL (0.2-1.3); Total Protein 6.5 g/dL (6.3-8.2)
[2020-12-30] MEDS: ACETAMINOPHEN TAB 325 MG TAB PO PRN (02:18)
[2020-12-30] MEDS: HYDROcodone/APAP 5-325MG 1 EACH TAB PO PRN (03:20)
[2020-12-30] MEDS ORDERED: dexAMETHasone 2 MG TAB PO SCH ×2 (03:44→09:00)
[2020-12-30 04:43] LABS: C Reactive Protein 54.7 mg/L (<10.0); D-Dimer <0.17 mg/L FEU (<0.60); INR 1.4 (<1.2); Partial Thromboplastin Time 34.6 sec (22.0-30.0); Prothrombin Time 14.1 sec (9.0-12.0)
[2020-12-30] MEDS: polyethylene glycoL 3350 17 GM POWD.PACK PO SCH (06:16)
[2020-12-30] MEDS: PANTOPRAZOLE 40 MG TABLET PO SCH (06:29)
[2020-12-30 06:33] LABS: Glucose,Whole Blood 106 mg/dL (75-99)
[2020-12-30] MEDS: INSULIN ASPART (NovoLOG) 100 UNIT/ML VIAL SQ SCH ×4 (06:34→23:51)
[2020-12-30 09:54] LABS: Ferritin 187.4 ng/mL (22.0-322.0)
[2020-12-30] MEDS: FUROSEMIDE 10 MG/ML 4 ML VIAL IV SCH ×2 (10:09→20:06)
[2020-12-30] MEDS: ASCORBIC ACID 500 MG TAB PO SCH (10:10)
[2020-12-30] MEDS: SODIUM BICARBONATE TAB 650 MG TAB PO SCH ×3 (10:10→20:06)
[2020-12-30] MEDS: TAMSULOSIN 0.4 MG CAP.ER.24H PO SCH ×2 (10:10→20:06)
[2020-12-30] MEDS: CHOLECALCIFEROL 25 MCG (1000 IU) TABLET PO SCH (10:10)
[2020-12-30] MEDS: APIXABAN 5 MG TAB PO SCH ×2 (10:10→20:06)
[2020-12-30] MEDS: ATORVASTATIN 80 MG TAB PO SCH (10:10)
[2020-12-30] MEDS: METOPROLOL TARTRATE 50 MG TAB PO SCH ×2 (10:10→20:07)
[2020-12-30] MEDS: ISOSORBIDE MONONITRATE ER 30 MG TAB.ER.24H PO SCH (10:10)
[2020-12-30] MEDS: CLOPIDOGREL 75 MG TAB PO SCH (10:10)
[2020-12-30] MEDS: AMIODARONE 200 MG TAB PO SCH ×2 (10:10→20:06)
[2020-12-30] MEDS: allopurinoL 100 MG TAB PO SCH (10:11)
[2020-12-30] MEDS: DEXAMETHASONE SOD PHOSPHATE 10 MG/ML 1 ML VIAL IV SCH (10:11)
[2020-12-30] MEDS: ZINC SULFATE 220 MG CAP PO SCH (10:11)
--- NOTE | 2020-12-30 10:19 | P.PN ---
Subjective Progress Note Date: 12/30/20 Principal diagnosis: Colonic ileus Patient was being followed by Dr. Osman. Patient had evidence of colonic ileus which appeared to be clinically improving. Yesterday evening the patient had a decline in his condition. He was transferred to the ICU. He is currently tachypneic. Recently found to be Covid positive. Abdominal x-rays show persistent colonic distention without pneumoperitoneum. Patient has no complaints of pain and is nontender. We will re-consulted to evaluate this morning. Objective - Vital Signs Vital signs: Vital Signs Temp 99.7 F H 12/30/20 08:00 Pulse 75 12/30/20 08:00 Resp 25 H 12/30/20 08:00 BP 108/69 12/30/20 08:00 Pulse Ox 95 12/30/20 08:32 Intake & Output 12/29/20 12/30/20 12/30/20 18:59 06:59 18:59 Intake Total 240 0 Output Total 25 Balance 240 -25 Weight 95 kg Intake: Oral 240 0 Output: Urine 25 Other: Voiding Method Urinal # Voids 1 - Exam Abdomen: Soft, mild distention, nontender - Labs CBC & Chem 7: 12/30/20 01:16 12/30/20 01:16 Labs: Abnormal Lab Results - Last 24 Hours (Table) 12/29/20 12/29/20 12/29/20 Range/Units 06:20 11:46 17:50 RBC (4.30-5.90) m/uL Hgb (13.0-17.5) gm/dL Hct (39.0-53.0) % RDW (11.5-15.5) % Neutrophils # (1.3-7.7) k/uL Lymphocytes # (1.0-4.8) k/uL PT (9.0-12.0) sec INR (<1.2) APTT (22.0-30.0) sec Sodium (137-145) mmol/L Potassium 3.2 L (3.5-5.5) mmol/L Carbon Dioxide 19.1 L (21.6-31.8) mmol/L BUN 28.0 H (9.0-27.0) mg/dL Creatinine (0.66-1.25) mg/dL Est GFR (CKD-EPI)AfAm 54.3 L (60.0-200.0) Est GFR (CKD-EPI)NonAf 46.8 L (60.0-200.0) Glucose (74-99) mg/dL POC Glucose (mg/dL) 119 H 124 H (75-99) mg/dL Plasma Lactic Acid Patrick (0.7-2.0) mmol/L AST (17-59) U/L Lactate Dehydrogenase (313-618) U/L C-Reactive Protein (<10.0) mg/L Coronavirus (PCR) (Not Detectd) 12/29/20 12/30/20 12/30/20 Range/Units 20:35 00:14 00:50 RBC (4.30-5.90) m/uL Hgb (13.0-17.5) gm/dL Hct (39.0-53.0) % RDW (11.5-15.5) % Neutrophils # (1.3-7.7) k/uL Lymphocytes # (1.0-4.8) k/uL PT (9.0-12.0) sec INR (<1.2) APTT (22.0-30.0) sec Sodium (137-145) mmol/L Potassium (3.5-5.5) mmol/L Carbon Dioxide (21.6-31.8) mmol/L BUN (9.0-27.0) mg/dL Creatinine (0.66-1.25) mg/dL Est GFR (CKD-EPI)AfAm (60.0-200.0) Est GFR (CKD-EPI)NonAf (60.0-200.0) Glucose (74-99) mg/dL POC Glucose (mg/dL) 194 H 135 H 111 H (75-99) mg/dL Plasma Lactic Acid Patrick (0.7-2.0) mmol/L AST (17-59) U/L Lactate Dehydrogenase (313-618) U/L C-Reactive Protein (<10.0) mg/L Coronavirus (PCR) (Not Detectd) 12/30/20 12/30/20 12/30/20 Range/Units 01:16 01:16 01:17 RBC 3.90 L (4.30-5.90) m/uL Hgb 11.2 L (13.0-17.5) gm/dL Hct 33.8 L (39.0-53.0) % RDW 16.4 H (11.5-15.5) % Neutrophils # 8.8 H (1.3-7.7) k/uL Lymphocytes # 0.2 L (1.0-4.8) k/uL PT (9.0-12.0) sec INR (<1.2) APTT (22.0-30.0) sec Sodium 136 L (137-145) mmol/L Potassium (3.5-5.5) mmol/L Carbon Dioxide 17 L (21.6-31.8) mmol/L BUN 31 H (9.0-27.0) mg/dL Creatinine 2.15 H (0.66-1.25) mg/dL Est GFR (CKD-EPI)AfAm (60.0-200.0) Est GFR (CKD-EPI)NonAf (60.0-200.0) Glucose 121 H (74-99) mg/dL POC Glucose (mg/dL) (75-99) mg/dL Plasma Lactic Acid Patrick 2.2 H* (0.7-2.0) mmol/L AST 83 H (17-59) U/L Lactate Dehydrogenase (313-618) U/L C-Reactive Protein (<10.0) mg/L Coronavirus (PCR) (Not Detectd) 12/30/20 12/30/20 12/30/20 Range/Units 02:00 03:57 03:57 RBC (4.30-5.90) m/uL Hgb (13.0-17.5) gm/dL Hct (39.0-53.0) % RDW (11.5-15.5) % Neutrophils # (1.3-7.7) k/uL Lymphocytes # (1.0-4.8) k/uL PT 14.1 H (9.0-12.0) sec INR 1.4 H (<1.2) APTT 34.6 H (22.0-30.0) sec Sodium (137-145) mmol/L Potassium (3.5-5.5) mmol/L Carbon Dioxide (21.6-31.8) mmol/L BUN (9.0-27.0) mg/dL Creatinine (0.66-1.25) mg/dL Est GFR (CKD-EPI)AfAm (60.0-200.0) Est GFR (CKD-EPI)NonAf (60.0-200.0) Glucose (74-99) mg/dL POC Glucose (mg/dL) (75-99) mg/dL Plasma Lactic Acid Patrick (0.7-2.0) mmol/L AST (17-59) U/L Lactate Dehydrogenase 790 H (313-618) U/L C-Reactive Protein 54.7 H (<10.0) mg/L Coronavirus (PCR) Detected A (Not Detectd) 12/30/20 Range/Units 06:32 RBC (4.30-5.90) m/uL Hgb (13.0-17.5) gm/dL Hct (39.0-53.0) % RDW (11.5-15.5) % Neutrophils # (1.3-7.7) k/uL Lymphocytes # (1.0-4.8) k/uL PT (9.0-12.0) sec INR (<1.2) APTT (22.0-30.0) sec Sodium (137-145) mmol/L Potassium (3.5-5.5) mmol/L Carbon Dioxide (21.6-31.8) mmol/L BUN (9.0-27.0) mg/dL Creatinine (0.66-1.25) mg/dL Est GFR (CKD-EPI)AfAm (60.0-200.0) Est GFR (CKD-EPI)NonAf (60.0-200.0) Glucose (74-99) mg/dL POC Glucose (mg/dL) 106 H (75-99) mg/dL Plasma Lactic Acid Patrick (0.7-2.0) mmol/L AST (17-59) U/L Lactate Dehydrogenase (313-618) U/L C-Reactive Protein (<10.0) mg/L Coronavirus (PCR) (Not Detectd) Assessment and Plan (1) Ileus Narrative/Plan: Patient unfortunately has had a decline in his condition and currently admitted to the intensive care unit. Patient with evidence of ongoing tachypnea likely on the basis of recent Covid infection. The patient's x-rays show persistent mild to moderate colonic distention. Patient is having some loose liquid stools and flatus intermittently. We'll repeat abdominal x-rays tomorrow morning. Begin Dulcolax suppositories daily. With rectal stimulation hopefully some degree of improvement in the patient's ileus will be seen. Keep nothing by mouth for now. Will follow. Current Visit: Yes Status: Acute Code(s): K56.7 - ILEUS, UNSPECIFIED SNOMED Code(s): 497032001
[2020-12-30] MEDS ORDERED: ONDANSETRON 4 MG/2 ML VIAL IVP PRN (11:01)
[2020-12-30] MEDS: bisacodyL 10 MG SUPP RECTAL SCH (11:10)
[2020-12-30] MEDS: FERROUS SULFATE 325 MG TAB PO SCH (11:10)
[2020-12-30 11:14] LABS: Glucose,Whole Blood 114 mg/dL (75-99)
--- NOTE | 2020-12-30 12:31 | PN ---
PROGRESS NOTE The patient is seen for followup for acute kidney injury. Last night, patient developed worsening shortness of breath and was transferred to the ICU. His creatinine has increased to 2.1 mg/dL from 1.5 the day before. The patient also tested positive for COVID. He was initially negative on admission but test repeated laser engineer at 2:00 am showed positive PCR for coronavirus. The patient is currently still complaining of some shortness of breath. He did receive IV fluid bolus. His lactic acid was elevated at 2.2. Blood pressure has been around 108-125 mmHg systolic. The patient has not voided yet. It looks like earlier he had about 25 cc. There was no urinary retention noted on bladder scan done last night. Chest x-ray from this morning shows evidence of CHF, worse than last exam. EXAMINATION: Today blood pressure was 108/69, heart rate 77 per minute, he is afebrile. Examination shows edema 2+ bilateral lower extremities. Abdomen is soft, nontender. LABS: Show sodium of 136, potassium 4.0, chloride 104, CO2 17, BUN 31, creatinine 2.15, hemoglobin of 11.2 g/dL. ASSESSMENT: 1. Acute kidney injury with worsening renal function from yesterday, most likely acute tubular necrosis associated with underlying infection versus an element of cardiorenal syndrome as well. A bladder scan will be done again to check for urine retention and urine output. If urine output is low, the patient may need a Duckworth catheter placement. In the meantime, he is volume overloaded. I will maintain him on Lasix. Some of the chest x-ray findings could be related to the pneumonia as well. However, patient does have significant edema in his lower extremities. 2. Volume overload. Diurese patient. 3. COVID-19 pneumonia. 4. Acute kidney injury also related to contrast nephropathy. 5. Congestive heart failure, ejection fraction is 20%. 6. Chronic kidney disease stage 3a, baseline creatinine about 1.3. PLAN: Maintain patient on IV Lasix. Avoid any nephrotoxic agents. Check bladder scan. May need Duckworth catheter if urine output is low. Avoid hypotension. There is definitely a component of contrast induced nephropathy as patient had IV contrast for catheterization on December 23. Renal function, however, had improved with creatinine down to 1.4 and 1.5 as of yesterday. Therefore, this new acute kidney injury is most likely related to recent instability and possibly underlying infection as well. MMODL / IJN: [id number] /
--- NOTE | 2020-12-30 13:11 | P.PN ---
Subjective Progress Note Date: 12/30/20 Principal diagnosis: ICU management. On 12/26/2020 patient seen in follow-up in the intensive care unit, since yesterday he has developed abdominal pain, and distention, and imaging was done, abdominal x-ray showed gas-filled distended large bowels related to ileus, no free air. CT of the abdomen and pelvis without contrast showed findings suggestive of large bowel ileus, but no suspicion for mechanical bowel obstruction, and there was mild ascites. Bilateral pleural effusions and bibasilar pulmonary infiltrates were noted suggestive of congestive heart failure. Patient developed nausea and vomiting as well. He is currently nothing by mouth, he was given enemas, he started passing small amount of stool, and a little bit of gas, he states his abdomen is less distended and he feels lightly reviewed, no worsening dyspnea, he still on 2 L of oxygen, his pulse ox is 94%, he's had no fever or chills, no chest pain. His had no arrhythmias overnight. A occasional cough, yesterday he was complaining of chest discomfort along her right lower ribs, rib x-ray showed normal bilateral ribs, without evidence of acute fractures. His labs have been reviewed, showing white blood cell, 3.5, hemoglobin of 9.9, sodium is 133, potassium is 3.9, CO2 17, and renal profile is stable, with BUN of 43 and creatinine of 2.2. Patient was given a dose of IV Lasix yesterday. His weight is down by 0.8 kg On 12/27/2020 patient seen in follow-up in the intensive care unit, he is awake and alert, in no acute distress, is currently on 2 L of oxygen pulse ox is 94%, vital signs are stable, no fever or chills, breathing fernández she is very stable, lung sounds are clear, no rhonchi wheezing or crackles. No cough or congestion, no complaints of chest pain. No dysrhythmias on the monitor, abdomen is soft, less distended, she has been started on clear liquid diet, abdomen is nontender, patient is passing some liquid brown output per rectum, he is still receiving MiraLAX and enemas. He is awaiting surgical evaluation. Otherwise he's had no acute events overnight On 12/28/2020 patient seen in follow-up on medical floor. Is currently awake, in no acute distress, he is resting in bed, denies any shortness of breath, no chest pain, transfer out of intensive care unit yesterday, has had no acute events overnight, no further episodes of unresponsiveness or arrhythmias, lung sounds are clear, pulse ox is 95%, no fever or chills, abdomen is soft, nontender, hypoactive bowel sounds, no abdominal pain, patient continues to have liquid greenish colored watery stools, continues on popsicles and clear liquid diet, tolerating them well so far. His labs have been reviewed, showing white blood cell, 3.4, hemoglobin of 10.8, potassium is 2.9, CO2 is 20, BUN is 27 creatinine is 1.46 Progress note dated 12/29/2020. The patient is again seen today, on December 29, in room 523. He is resting comfortably. He mostly complains of some abdominal distention, with some mild nausea. Patient denies any shortness of breath, cough, wheezing, phlegm production, chest pain, chest discomfort, or fever or chills. He was discharged out of the intensive care unit a couple days ago. His room air saturation is 95%. His potassium is 3.3, white count 2.9, hemoglobin 10.2, hematocrit 32.8, and platelet count 165,000. Sodium 138, potassium 3.3, chlorides 107, CO2 19, anion gap is 12, BUN 28, creatinine 1.5. A KUB film done today showed a dilated prominent transverse colon, which could be consistent with colonic ileus. Progress note dated 12/30/2020. This is a patient that we saw yesterday in follow-up. Yesterday, he was on the [facility]. He was room 523. He was planning to be discharged home today. Unfortunately, last night, the patient developed some respiratory difficulty. He was thought to have CHF. The patient received Lasix 40 mg IV push, and was transferred over to the ICU as a overflow patient. He was placed on BiPAP initially with settings of 12/6 and 60%. Currently, he is on 10 L high flow nasal O2. He is not receiving any IV fluids. His lactic acid level was 2.2, and they retested him for coronavirus, and he was positive. The patient will have a pro-calcitonin level done, an N-terminal proBNP, and be given Decadron, vitamin C, vitamin D3, and zinc, and is ready on a factor X a inhibitor. White count is 9.3, hemoglobin 11.2, hematocrit 33.8, and platelet count 163,000. PT 14.1, INR 1.4, PTT 34.6, and d-dimer less than 0.17. Sodium 136, potassium 4, chloride 104, CO2 17, anion gap 15, with a BUN of 31 and a creatinine of 2.15. Ferritin is 187. C-reactive protein is 55, LDH 790, N-terminal proBNP 52,900, and pro-calcitonin level is 8.80. Chest x-ray shows diffuse bilateral infiltrates, which may relate to CHF/fluid overload, and/or COVID 19 Objective - Vital Signs Vital signs: Vital Signs Temp 98.6 F 12/30/20 12:00 Pulse 67 12/30/20 12:00 Resp 31 H 12/30/20 12:00 BP 108/65 12/30/20 12:00 Pulse Ox 96 12/30/20 12:00 Intake & Output 12/29/20 12/30/20 12/30/20 18:59 06:59 18:59 Intake Total 240 0 350 Output Total 25 101 Balance 240 -25 249 Weight 95 kg Intake: Intake, IV Titration 100 Amount Piperacillin-Tazobactam 3 100 .375 gm In Sodium Chloride 0.9% 100 ml @ 25 mls/hr IVPB Q8H [facility] Rx#: [id number] Oral 240 0 250 Output: Urine 25 100 Urine/Stool Mix 1 Other: Voiding Method Urinal Urinal # Voids 1 - Exam The patient has mild respiratory distress, and is on 10 L high flow oxygen. Mild conversational dyspnea, but no audible wheezing or use of accessory muscles. HEENT examination is grossly unremarkable. Mucous membranes are moist. Nasal cannula and place. Neck supple. Full range of motion. No adenopathy thyromegaly or neck vein distention. Cardiovascular examination reveals regular rhythm rate. S1-S2 normal. No S3 or S4. No discernible murmur noted. Heart sounds are distant. Heart rate 67 bpm. Lungs reveal diffuse coarse rhonchi in by lateral crackles. No wheezes. Breath sounds equal bilaterally. He does not take deep breaths. Abdomen soft bowel sounds are heard. No masses or tenderness. Extremities are intact. No cyanosis or clubbing. Trace edema. Skin is without rash or lesion. Neurologic examination is brief but nonfocal. - Labs CBC & Chem 7: 12/30/20 01:16 12/30/20 01:16 Labs: Abnormal Lab Results - Last 24 Hours (Table) 12/29/20 12/29/20 12/30/20 Range/Units 17:50 20:35 00:14 RBC (4.30-5.90) m/uL Hgb (13.0-17.5) gm/dL Hct (39.0-53.0) % RDW (11.5-15.5) % Neutrophils # (1.3-7.7) k/uL Lymphocytes # (1.0-4.8) k/uL PT (9.0-12.0) sec INR (<1.2) APTT (22.0-30.0) sec Sodium (137-145) mmol/L Carbon Dioxide (22-30) mmol/L BUN (9-20) mg/dL Creatinine (0.66-1.25) mg/dL Glucose (74-99) mg/dL POC Glucose (mg/dL) 124 H 194 H 135 H (75-99) mg/dL Plasma Lactic Acid Patrick (0.7-2.0) mmol/L AST (17-59) U/L Lactate Dehydrogenase (313-618) U/L C-Reactive Protein (<10.0) mg/L Procalcitonin (0.02-0.09) ng/mL Coronavirus (PCR) (Not Detectd) 12/30/20 12/30/20 12/30/20 Range/Units 00:50 01:16 01:16 RBC 3.90 L (4.30-5.90) m/uL Hgb 11.2 L (13.0-17.5) gm/dL Hct 33.8 L (39.0-53.0) % RDW 16.4 H (11.5-15.5) % Neutrophils # 8.8 H (1.3-7.7) k/uL Lymphocytes # 0.2 L (1.0-4.8) k/uL PT (9.0-12.0) sec INR (<1.2) APTT (22.0-30.0) sec Sodium 136 L (137-145) mmol/L Carbon Dioxide 17 L (22-30) mmol/L BUN 31 H (9-20) mg/dL Creatinine 2.15 H (0.66-1.25) mg/dL Glucose 121 H (74-99) mg/dL POC Glucose (mg/dL) 111 H (75-99) mg/dL Plasma Lactic Acid Patrick (0.7-2.0) mmol/L AST 83 H (17-59) U/L Lactate Dehydrogenase (313-618) U/L C-Reactive Protein (<10.0) mg/L Procalcitonin (0.02-0.09) ng/mL Coronavirus (PCR) (Not Detectd) 12/30/20 12/30/20 12/30/20 Range/Units 01:17 02:00 03:57 RBC (4.30-5.90) m/uL Hgb (13.0-17.5) gm/dL Hct (39.0-53.0) % RDW (11.5-15.5) % Neutrophils # (1.3-7.7) k/uL Lymphocytes # (1.0-4.8) k/uL PT 14.1 H (9.0-12.0) sec INR 1.4 H (<1.2) APTT 34.6 H (22.0-30.0) sec Sodium (137-145) mmol/L Carbon Dioxide (22-30) mmol/L BUN (9-20) mg/dL Creatinine (0.66-1.25) mg/dL Glucose (74-99) mg/dL POC Glucose (mg/dL) (75-99) mg/dL Plasma Lactic Acid Patrick 2.2 H* (0.7-2.0) mmol/L AST (17-59) U/L Lactate Dehydrogenase (313-618) U/L C-Reactive Protein (<10.0) mg/L Procalcitonin (0.02-0.09) ng/mL Coronavirus (PCR) Detected A (Not Detectd) 12/30/20 12/30/20 12/30/20 Range/Units 03:57 03:57 06:32 RBC (4.30-5.90) m/uL Hgb (13.0-17.5) gm/dL Hct (39.0-53.0) % RDW (11.5-15.5) % Neutrophils # (1.3-7.7) k/uL Lymphocytes # (1.0-4.8) k/uL PT (9.0-12.0) sec INR (<1.2) APTT (22.0-30.0) sec Sodium (137-145) mmol/L Carbon Dioxide (22-30) mmol/L BUN (9-20) mg/dL Creatinine (0.66-1.25) mg/dL Glucose (74-99) mg/dL POC Glucose (mg/dL) 106 H (75-99) mg/dL Plasma Lactic Acid Patrick (0.7-2.0) mmol/L AST (17-59) U/L Lactate Dehydrogenase 790 H (313-618) U/L C-Reactive Protein 54.7 H (<10.0) mg/L Procalcitonin 8.80 H (0.02-0.09) ng/mL Coronavirus (PCR) (Not Detectd) 12/30/20 Range/Units 11:13 RBC (4.30-5.90) m/uL Hgb (13.0-17.5) gm/dL Hct (39.0-53.0) % RDW (11.5-15.5) % Neutrophils # (1.3-7.7) k/uL Lymphocytes # (1.0-4.8) k/uL PT (9.0-12.0) sec INR (<1.2) APTT (22.0-30.0) sec Sodium (137-145) mmol/L Carbon Dioxide (22-30) mmol/L BUN (9-20) mg/dL Creatinine (0.66-1.25) mg/dL Glucose (74-99) mg/dL POC Glucose (mg/dL) 114 H (75-99) mg/dL Plasma Lactic Acid Patrick (0.7-2.0) mmol/L AST (17-59) U/L Lactate Dehydrogenase (313-618) U/L C-Reactive Protein (<10.0) mg/L Procalcitonin (0.02-0.09) ng/mL Coronavirus (PCR) (Not Detectd) Assessment and Plan Assessment: Acute hypoxemic respiratory failure, likely multifactorial, in part related to acute decompensation of systolic CHF, and/or COVID 19 pneumonia, with readmission to the ICU on December 30. Status post brief cardiac arrest, with pulseless electrical activity, requiring CPR in return of spontaneous circulation, on December 23. Acute kidney injury. History of coronary artery disease, with previous bypass grafting, and subsequent stenting. Ischemic cardiomyopathy. History of non-tobacco use. Diabetes mellitus. Rule out non-ST segment elevation myocardial infarction. New onset atrial fibrillation. History of hypertension. History of hyperlipidemia. History of a colonic ileus. Plan: Plan dated 12/30/2020. Because of the patient's respiratory decline, he was moved back to the ICU on December 30. The patient has a chest x-ray which suggested bilateral infiltrates, which may relate to underlying fluid overload and/or COVID 19 pneumonia. The patient's pro calcitonin was quite high. We added Decadron, vitamin C, vitamin D3, and zinc, and the patient was ready on a factor X a inhibitor. We also added an albuterol inhaler. Prognosis is guarded. We will continue to follow. The patient was made in the intensive care unit patient. Initially he was a [facility] overflow patient. Prognosis is guarded. Time with Patient: Greater than 30
--- NOTE | 2020-12-30 14:29 | P.PN ---
Subjective Progress Note Date: 12/30/20 (delayed charting seen at 0830) Principal diagnosis: shortness of breath Patient is a 70-year-old male with a past medical history of coronary artery disease with history of CABG in 1999, diabetes mellitus type 2, hypertension, and dyslipidemia who presented to the emergency room with shortness of breath. He was subsequently found to have an acute exacerbation of systolic congestive heart failure. He was tachypneic and hypoxic on presentation. He was started on IV heparin due to an elevated troponin. He was started on Lasix and admitted. Cardiology was consulted who agreed with continuing Lasix and IV heparin. He had some optimal diuresis and therefore his Lasix was increased to 80 mg every 8 hours. Due to his low ejection fraction of 20-25% which was newly discovered plan was for cardiac catheterization, this was completed on 12/23 his stent were found to be patent LAD was widely open, with no additional intervention required. He was noted to have worsening renal function and his lisinopril was discontinued. He was transitioned off of heparin drip and onto Eliquis. He was also started on dobutamine. He did go into A. fib and was started on IV amiodarone and then transitioned to oral amiodarone. He was noted to have worsening renal function was seen by nephrology on 12/23. They agreed with continuing dobutamine drip and maintaining a systolic blood pressure greater than 110. On the evening of 12/23 patient seen in follow going to the bathroom and was found to be unresponsive with possible loss of pulses. CPR was initiated and after 1 round of CPR ROSC was noted, concern for possible vasovagal episode. He was awake and alert and did not require intubation. He was transferred to the ICU in critical care was consulted. There was some conc kay of possible seizure activity versus true cardiac arrest. Head CT was completed which showed no acute process, EEG was normal. His transitioned off of dobutamine on 12/24. He developed abdominal distension, nausea, and abdominal pain on 12/[address] demonstrated large bowel ileus. He did have an enema which resulted in liquid bowel movement and he had one large formed BM the morning of 12/26, the rest were liquid. His renal function was slowly improving and he was kept on lasix. He started having multiple liquid bowel movements. He continued to have some liquid bowel movements but was tolerating a diet. Overnight on 12/29 the patient started spiking fevers at approximately 8 PM. He experienced respiratory distress and was noted to be hypoxemic. CXR demonstrated patchy perihilar infiltrates and COVID testing came back positive. He required BiPap for O2 support he was transferred to the ICU. Pulmonary was reconsulted. He was noted to have high procalcitonin and was started on Zosyn. Patient seen and examined at bedside. He complains of wanting to be up to stool, + SOB, + Fatigue, + nausea, + poor appetite, + liquid stools. General: ill appearing, mild distress, appears at stated age Derm: warm, dry, multiple areas of ecchymosis Head: atraumatic, normocephalic, symmetric Eyes: EOMI, no lid lag, anicteric sclera Mouth: no lip lesion, mucus membranes dry Cardiovascular: S1S2 irreg wth grade 3 ejection murmur, positive posterior tibial pulse bilateral, Lungs: High pitched wheeze bilateral, no rhonchi, no rales , + accessory muscle use, + 3 word conversational dyspnea Abdominal: soft, + high pitched bowel sounds, nontender to palpation, no guarding, no appreciable organomegaly Ext: no gross muscle atrophy, 2+ edema b/l LE, no contractures Neuro: CN II-XI grossly intact, no focal neuro deficits Psych: fatigued but awakes to speak, oriented, appropriate affect Covid-19 pneumonitis with acute hypoxic respiratory failure - Pulm recs - Decadron - Follow inflammatory labs - vit C, zinc, vit D - possible bacterial pneumonia with elevated procalcitonin, continue zosyn Acute exacerbation of systolic congestive heart failure with ejection fraction 20-25% -Cardiology recommendations appreciated -Strict I's and O's, daily weights -Lopressor, losartan on hold due to LULÚ -Off dobutamine -Lasix IV BID LULÚ, worsening: cardiorenal with component of contrast induced nephropathy, metabolic acidosis - nephrology recs: IV lasix BID - hold losartan -Off fluids -On oral bicarb large bowel ileus -NPO, rectal dulcolax -Repeat x-ray in a.m. - s/p enema X 1 - Surgery recs appreciated New-onset Paroxysmal A. fib -Started on IV amiodarone and then transitioned to oral amiodarone -Eliquis Non-STEMI with history of coronary artery disease and CABG -Cath with patent GAYLE to LAD and prior stents, no intervention needed -Continue with Plavix, Lipitor, Imdur, Lopressor Iron deficiency anemia -Follow CBC -No indication for transfusion at this point in time. -Recommend colonoscopy as outpatient in light of ileus, frequent use of imodium at home, and iron deficiency Diabetes mellitus type 2 - off metformin - SSI - follow BS - A1C 6 Hypertension - controlled - Continue with metoprolol - follow BP Dyslipidemia - Statin Hypomagnesemia, resolved thrombocytopenia, resolved Cardiac event possible syncope vs cardiac arrest Hypokalemia, resolved Updated [id number] Tara over the phone on current condition DVT prophylaxis: Cara Discussed with: patient, nursing Anticipated discharge:undetermined Anticipated discharge place: undetermined A total of 35 minutes was spent on the care of this complex patient more than 50% of the time was spent in counseling and care coordination. Objective - Vital Signs Vital signs: Vital Signs Temp 98.6 F 12/30/20 12:00 Pulse 67 12/30/20 13:00 Resp 24 12/30/20 13:00 BP 102/61 12/30/20 13:00 Pulse Ox 96 12/30/20 13:00 Intake & Output 12/29/20 12/30/20 12/30/20 18:59 06:59 18:59 Intake Total 240 0 600 Output Total 25 101 Balance 240 -25 499 Weight 95 kg Intake: Intake, IV Titration 100 Amount Piperacillin-Tazobactam 3 100 .375 gm In Sodium Chloride 0.9% 100 ml @ 25 mls/hr IVPB Q8H [facility] Rx#: [id number] Oral 240 0 500 Output: Urine 25 100 Urine/Stool Mix 1 Other: Voiding Method Urinal Urinal # Voids 1 # Bowel Movements 1 - Labs CBC & Chem 7: 12/30/20 01:16 12/30/20 01:16 Labs: Abnormal Lab Results - Last 24 Hours (Table) 12/29/20 12/29/20 12/30/20 Range/Units 17:50 20:35 00:14 RBC (4.30-5.90) m/uL Hgb (13.0-17.5) gm/dL Hct (39.0-53.0) % RDW (11.5-15.5) % Neutrophils # (1.3-7.7) k/uL Lymphocytes # (1.0-4.8) k/uL PT (9.0-12.0) sec INR (<1.2) APTT (22.0-30.0) sec Sodium (137-145) mmol/L Carbon Dioxide (22-30) mmol/L BUN (9-20) mg/dL Creatinine (0.66-1.25) mg/dL Glucose (74-99) mg/dL POC Glucose (mg/dL) 124 H 194 H 135 H (75-99) mg/dL Plasma Lactic Acid Patrick (0.7-2.0) mmol/L AST (17-59) U/L Lactate Dehydrogenase (313-618) U/L C-Reactive Protein (<10.0) mg/L Procalcitonin (0.02-0.09) ng/mL Coronavirus (PCR) (Not Detectd) 12/30/20 12/30/20 12/30/20 Range/Units 00:50 01:16 01:16 RBC 3.90 L (4.30-5.90) m/uL Hgb 11.2 L (13.0-17.5) gm/dL Hct 33.8 L (39.0-53.0) % RDW 16.4 H (11.5-15.5) % Neutrophils # 8.8 H (1.3-7.7) k/uL Lymphocytes # 0.2 L (1.0-4.8) k/uL PT (9.0-12.0) sec INR (<1.2) APTT (22.0-30.0) sec Sodium 136 L (137-145) mmol/L Carbon Dioxide 17 L (22-30) mmol/L BUN 31 H (9-20) mg/dL Creatinine 2.15 H (0.66-1.25) mg/dL Glucose 121 H (74-99) mg/dL POC Glucose (mg/dL) 111 H (75-99) mg/dL Plasma Lactic Acid Patrick (0.7-2.0) mmol/L AST 83 H (17-59) U/L Lactate Dehydrogenase (313-618) U/L C-Reactive Protein (<10.0) mg/L Procalcitonin (0.02-0.09) ng/mL Coronavirus (PCR) (Not Detectd) 12/30/20 12/30/20 12/30/20 Range/Units 01:17 02:00 03:57 RBC (4.30-5.90) m/uL Hgb (13.0-17.5) gm/dL Hct (39.0-53.0) % RDW (11.5-15.5) % Neutrophils # (1.3-7.7) k/uL Lymphocytes # (1.0-4.8) k/uL PT 14.1 H (9.0-12.0) sec INR 1.4 H (<1.2) APTT 34.6 H (22.0-30.0) sec Sodium (137-145) mmol/L Carbon Dioxide (22-30) mmol/L BUN (9-20) mg/dL Creatinine (0.66-1.25) mg/dL Glucose (74-99) mg/dL POC Glucose (mg/dL) (75-99) mg/dL Plasma Lactic Acid Patrick 2.2 H* (0.7-2.0) mmol/L AST (17-59) U/L Lactate Dehydrogenase (313-618) U/L C-Reactive Protein (<10.0) mg/L Procalcitonin (0.02-0.09) ng/mL Coronavirus (PCR) Detected A (Not Detectd) 12/30/20 12/30/20 12/30/20 Range/Units 03:57 03:57 06:32 RBC (4.30-5.90) m/uL Hgb (13.0-17.5) gm/dL Hct (39.0-53.0) % RDW (11.5-15.5) % Neutrophils # (1.3-7.7) k/uL Lymphocytes # (1.0-4.8) k/uL PT (9.0-12.0) sec INR (<1.2) APTT (22.0-30.0) sec Sodium (137-145) mmol/L Carbon Dioxide (22-30) mmol/L BUN (9-20) mg/dL Creatinine (0.66-1.25) mg/dL Glucose (74-99) mg/dL POC Glucose (mg/dL) 106 H (75-99) mg/dL Plasma Lactic Acid Patrick (0.7-2.0) mmol/L AST (17-59) U/L Lactate Dehydrogenase 790 H (313-618) U/L C-Reactive Protein 54.7 H (<10.0) mg/L Procalcitonin 8.80 H (0.02-0.09) ng/mL Coronavirus (PCR) (Not Detectd) 12/30/20 Range/Units 11:13 RBC (4.30-5.90) m/uL Hgb (13.0-17.5) gm/dL Hct (39.0-53.0) % RDW (11.5-15.5) % Neutrophils # (1.3-7.7) k/uL Lymphocytes # (1.0-4.8) k/uL PT (9.0-12.0) sec INR (<1.2) APTT (22.0-30.0) sec Sodium (137-145) mmol/L Carbon Dioxide (22-30) mmol/L BUN (9-20) mg/dL Creatinine (0.66-1.25) mg/dL Glucose (74-99) mg/dL POC Glucose (mg/dL) 114 H (75-99) mg/dL Plasma Lactic Acid Patrick (0.7-2.0) mmol/L AST (17-59) U/L Lactate Dehydrogenase (313-618) U/L C-Reactive Protein (<10.0) mg/L Procalcitonin (0.02-0.09) ng/mL Coronavirus (PCR) (Not Detectd)
[2020-12-30 16:50] LABS: Glucose,Whole Blood 158 mg/dL (75-99)
[2020-12-30 20:23] LABS: Glucose,Whole Blood 128 mg/dL (75-99)
[2020-12-31] MEDS: PIPERACILLIN-TAZOBACTAM 3.375 GM in SODIUM CHLORIDE 0.9% 100 ML IVPB SCH ×3 (00:18→17:08)
[2020-12-31] MEDS: HYDROcodone/APAP 5-325MG 1 EACH TAB PO PRN ×3 (00:49→21:16)
[2020-12-31] MEDS ORDERED: VANCOMYCIN 2,000 MG in SODIUM CHLORIDE 0.9% 500 ML 500 ML IVPB SCH (01:00)
[2020-12-31 04:20] LABS: Anisocytosis Slight; Basophils % (A) 0 %; Eosinophils % (A) 0 %; HGB 9.9 gm/dL (13.0-17.5); Hypochromasia Slight; Lymphocytes # (A) 0.2 k/uL (1.0-4.8); Lymphocytes % (A) 2 %; MCH 27.7 pg (25.0-35.0); MCHC 32.1 g/dL (31.0-37.0); MCV 86.4 fL (80.0-100.0); Mean Platelet Volume 8.1; Monocytes # (A) 0.2 k/uL (0-1.0); Monocytes % (A) 2 %; Neutrophils # (A) 8.5 k/uL (1.3-7.7); Neutrophils % (A) 95 %; Platelet Count 111 k/uL (150-450); RBC 3.59 m/uL (4.30-5.90); RDW 16.2 % (11.5-15.5)
[2020-12-31 04:39] LABS: Albumin 2.8 g/dL (3.5-5.0); Calcium 7.8 mg/dL (8.4-10.2); Magnesium 1.9 mg/dL (1.6-2.3); Potassium 3.1 mmol/L (3.5-5.1); Total Bilirubin 0.8 mg/dL (0.2-1.3); Total Protein 5.2 g/dL (6.3-8.2)
[2020-12-31 05:06] LABS: C Reactive Protein 203.7 mg/L (<10.0)
[2020-12-31] MEDS: POTASSIUM CHLORIDE ER 20 MEQ TAB.ER PO SCH ×4 (06:34→13:26)
[2020-12-31] MEDS: PANTOPRAZOLE 40 MG TABLET PO SCH (06:34)
[2020-12-31] MEDS: INSULIN ASPART (NovoLOG) 100 UNIT/ML VIAL SQ SCH ×4 (06:34→21:13)
--- NOTE | 2020-12-31 07:18 | XR ---
EXAMINATION TYPE: XR abdomen 2V DATE OF EXAM: 12/31/2020 COMPARISON: 12/29/2020 HISTORY: Pain TECHNIQUE: Single supine KUB image of the abdomen is obtained FINDINGS: Persistent distention of the large bowel with a larger all bile component noted at this time relative to the prior study. Findings are felt to reflect ileus. Continued follow-up is advised. No convincing evidence for pneumoperitoneum. No unusual calcifications. The lung bases are clear. The osseous structures are intact. IMPRESSION: 1. Persistent features of ileus. Clinical correlation advised.
--- NOTE | 2020-12-31 08:05 | P.PN ---
Subjective Progress Note Date: 12/31/20 12/31/2020, patient is being seen in follow-up in the intensive care unit. The patient the patient is an acute hypoxic respiratory failure due to a combination of the congestion heart failure and coronavirus/Covid 19 related pneumonia. Note that the patient has CHF on the patient also has impaired left ventricular function with an ejection fraction of 20-25% and the patient is post cardiac catheterization and coronary stent placed earlier was noted to be normal and patent and no intervention was performed. The patient also is post brief cardiac arrest with PEA requiring CPR and return of spontaneous circulation occurred on 12/23/2020. Note that the patient's computed tomography scan of the head that was done showed no abnormalities an EEG was also normal. During the course of her treatment here in the hospital, the patient also developed an ileus with secondary abdominal distention and nausea and emesis and the CAT scan of the abdomen that was done on 12/25/2020 showed large bowel ileus. The patient has was given an enema which resulted in to a liquid bowel movement and subsequently the patient phoned 1 large bowel movement and the rest was essentially liquids. The patient is known to have CAD, previous bypass surgery, ischemic cardiomyopathy, diabetes mellitus, and she fibrillation which is a new onset in addition to hypertension and hyperlipidemia and history of colonic ileu s. The patient currently is in intensive care unit. The patient is on high flow oxygen 10 L per minute nasal cannula to maintain a saturation above 90%. The was dropped to Chest x-ray showing diffuse breath and pulmonary infiltrates. The patient is being treated with a combination of Decadron which is currently being given at a dose of 6 minute grams IV every 24 hours in addition to routine vitamin supplements for Covid 19 related pneumonia. At the same time, the patient is on broad-spectrum antibiotics with a combination of Zosyn and vancomycin. The antibiotic coverage essentially empiric as the patient has an elevated pro-calcitonin level. She has developed an acute kidney injury in the creatinine is up to 2.1 from a baseline of 1.32 at time of admission. This creatinine rises was from yesterday and based on that the patient on no diuretics. This acute kidney injury was thought to be related to a various factors including diuretics and contrast and heart failure. Based on the evolving acute kidney injury, the patient was taken off the diuretics. The patient is also in atrial fibrillation. The patient on amiodarone. The patient is on long-term and to coagulation with Eliquis. Creatinine today is up to 2.48 and the patient has staph aureus Objective - Vital Signs Vital signs: Vital Signs Temp 98.6 F 12/31/20 04:00 Pulse 74 12/31/20 06:00 Resp 19 12/31/20 06:00 BP 97/67 12/31/20 06:00 Pulse Ox 97 12/31/20 06:00 Intake & Output 12/30/20 12/30/20 12/31/20 06:59 18:59 06:59 Intake Total 0 700 Output Total 25 201 300 Balance -25 499 -300 Weight 95 kg Intake: Intake, IV Titration 200 Amount Piperacillin-Tazobactam 3 200 .375 gm In Sodium Chloride 0.9% 100 ml @ 25 mls/hr IVPB Q8H [facility] Rx#: [id number] Oral 0 500 Output: Urine 25 200 300 Urine/Stool Mix 1 Other: Voiding Method Urinal Urinal Urinal # Voids 1 # Bowel Movements 1 - Exam General: ill appearing, mild distress, appears at stated age, currently on 4 L of oxygen by nasal cannula Derm: warm, dry, multiple areas of ecchymosis Head: Head exam was generally normal. There was no scleral icterus or corneal arcus. Mucous membranes were moist. Eyes: EOMI, no lid lag, anicteric sclera Mouth: no lip lesion, mucus membranes dry Cardiovascular: The patient is currently in an atrial fibrillation with S1S2 irreg wth grade 3 ejection murmur Lungs: High pitched wheeze bilateral, no rhonchi, no rales , patient is also having tach is midline bases bilaterally. Abdominal: soft, + high pitched bowel sounds, nontender to palpation, no guarding, no appreciable organomegaly Ext: no gross muscle atrophy, 2+ edema b/l LE, no contractures Neuro: Neurologically, the patient is awake and alert and the patient does not have any focal neurological deficit. Cranial nerves are essentially intact. Psych: fatigued but awakes to speak, oriented, appropriate affect - Labs CBC & Chem 7: 12/31/20 02:51 12/31/20 02:51 Labs: Abnormal Lab Results - Last 24 Hours (Table) 12/30/20 12/30/20 12/30/20 Range/Units 03:57 11:13 16:49 RBC (4.30-5.90) m/uL Hgb (13.0-17.5) gm/dL Hct (39.0-53.0) % RDW (11.5-15.5) % Plt Count (150-450) k/uL Neutrophils # (1.3-7.7) k/uL Lymphocytes # (1.0-4.8) k/uL D-Dimer (<0.60) mg/L FEU Sodium (137-145) mmol/L Potassium (3.5-5.1) mmol/L Carbon Dioxide (22-30) mmol/L BUN (9-20) mg/dL Creatinine (0.66-1.25) mg/dL Glucose (74-99) mg/dL POC Glucose (mg/dL) 114 H 158 H (75-99) mg/dL Calcium (8.4-10.2) mg/dL AST (17-59) U/L Lactate Dehydrogenase (313-618) U/L C-Reactive Protein (<10.0) mg/L Total Protein (6.3-8.2) g/dL Albumin (3.5-5.0) g/dL Procalcitonin 8.80 H (0.02-0.09) ng/mL 12/30/20 12/31/20 12/31/20 Range/Units 20:22 02:51 02:51 RBC 3.59 L (4.30-5.90) m/uL Hgb 9.9 L (13.0-17.5) gm/dL Hct 31.0 L (39.0-53.0) % RDW 16.2 H (11.5-15.5) % Plt Count 111 L (150-450) k/uL Neutrophils # 8.5 H (1.3-7.7) k/uL Lymphocytes # 0.2 L (1.0-4.8) k/uL D-Dimer 1.60 H (<0.60) mg/L FEU Sodium (137-145) mmol/L Potassium (3.5-5.1) mmol/L Carbon Dioxide (22-30) mmol/L BUN (9-20) mg/dL Creatinine (0.66-1.25) mg/dL Glucose (74-99) mg/dL POC Glucose (mg/dL) 128 H (75-99) mg/dL Calcium (8.4-10.2) mg/dL AST (17-59) U/L Lactate Dehydrogenase (313-618) U/L C-Reactive Protein (<10.0) mg/L Total Protein (6.3-8.2) g/dL Albumin (3.5-5.0) g/dL Procalcitonin (0.02-0.09) ng/mL 12/31/20 Range/Units 02:51 RBC (4.30-5.90) m/uL Hgb (13.0-17.5) gm/dL Hct (39.0-53.0) % RDW (11.5-15.5) % Plt Count (150-450) k/uL Neutrophils # (1.3-7.7) k/uL Lymphocytes # (1.0-4.8) k/uL D-Dimer (<0.60) mg/L FEU Sodium 135 L (137-145) mmol/L Potassium 3.1 L (3.5-5.1) mmol/L Carbon Dioxide 18 L (22-30) mmol/L BUN 45 H (9-20) mg/dL Creatinine 2.48 H (0.66-1.25) mg/dL Glucose 114 H (74-99) mg/dL POC Glucose (mg/dL) (75-99) mg/dL Calcium 7.8 L (8.4-10.2) mg/dL AST 71 H (17-59) U/L Lactate Dehydrogenase 646 H (313-618) U/L C-Reactive Protein 203.7 H (<10.0) mg/L Total Protein 5.2 L (6.3-8.2) g/dL Albumin 2.8 L (3.5-5.0) g/dL Procalcitonin (0.02-0.09) ng/mL Microbiology - Last 24 Hours (Table) 12/30/20 00:58 Blood Culture Gram Stain - Preliminary Blood Blood Culture - Preliminary Staphylococcus aureus 12/30/20 00:58 Blood Culture - Final Blood Assessment and Plan Plan: 1 acute hypoxic respiratory failure, currently on 4 L of oxygen by nasal cannula, and the respiratory failure is essentially due to combination of CHF exacerbation and covid 19 related pneumonia, currently the patient is on Decadron. The chest x-ray from today is still pending. LDH is 646 which is low and CRP is high at at 203. 2 acute covid 19 related pneumonia currently on Decadron and this to a combination of vitamin C, zinc and vitamin D. Superimposed pneumonia is likely the patient had an elevated pro-calcitonin level and the patient is currently on Zosyn 3 CHF with impaired left ventricular function and systolic heart failure with an ejection fraction of 20-25%. The patient was taken off diuretics due to an acute kidney injury. The patient was also off losartan and off dobutamine. 4 acute kidney injury, with interval worsening of the renal function and creatinine is up to 2.4. 5 large bowel ileus, please refer to the most recent CAT scan of the abdomen and the patient was given an enema with adequate bowel movements. General surgeries on the case 6 coronary artery disease, post non-STEMI, post cardiac catheterization with a patent GAYLE to LAD and patent previous stent inserted stents 7 new-onset atrial fibrillation, rate controlled on amiodarone and the patient is on long-term articulation with Eliquis 8 iron deficiency anemia 9. Diabetes mellitus type 2, currently off metformin due to acute kidney injury 10 hypertension 11 hyperlipidemia 12 thrombocytopenia, recovered Plan Repeat chest x-ray today Hold Lasix Hold vancomycin and continue the Zosyn Repeat blood cultures Wean down the FiO2 as the patient is currently on 4 L by nasal cannula The patient is having liquidy bowel movements Adjust the dose of Eliquis down to 2.5 mg by mouth twice a day my the patient continues to be in atrial fibrillation. Also obtain a flat film of the abdomen We'll continue to follow
--- NOTE | 2020-12-31 08:43 | XR ---
EXAMINATION TYPE: XR chest 1V portable DATE OF EXAM: 12/31/2020 HISTORY: Shortness of breath. COMPARISON: 12/29/2020 TECHNIQUE: Single view of the chest is submitted. FINDINGS: Demonstrated are scattered senescent parenchymal change. Patchy perihilar and basilar infiltrates are significantly improved although do persist. Continued fo llow-up is advised. The heart is stable. Hilar and mediastinal structures are within normal limits. Degenerative changes are seen of the dorsal spine. IMPRESSION: 1. Patchy perihilar and basilar infiltrates are significantly improved although do persist. Continue d follow-up is advised.
[2020-12-31] MEDS: ZINC SULFATE 220 MG CAP PO SCH (08:48)
[2020-12-31] MEDS: METOPROLOL TARTRATE 50 MG TAB PO SCH (08:48)
[2020-12-31] MEDS: SODIUM BICARBONATE TAB 650 MG TAB PO SCH ×3 (08:48→21:14)
[2020-12-31] MEDS: TAMSULOSIN 0.4 MG CAP.ER.24H PO SCH ×2 (08:49→21:14)
[2020-12-31] MEDS: allopurinoL 100 MG TAB PO SCH (08:49)
[2020-12-31] MEDS: AMIODARONE 200 MG TAB PO SCH ×2 (08:49→21:14)
[2020-12-31] MEDS: CLOPIDOGREL 75 MG TAB PO SCH (08:49)
[2020-12-31] MEDS: bisacodyL 10 MG SUPP RECTAL SCH (08:49)
[2020-12-31] MEDS: ASCORBIC ACID 500 MG TAB PO SCH (08:49)
[2020-12-31] MEDS: CHOLECALCIFEROL 25 MCG (1000 IU) TABLET PO SCH (08:49)
[2020-12-31] MEDS: DEXAMETHASONE SOD PHOSPHATE 10 MG/ML 1 ML VIAL IV SCH (08:49)
[2020-12-31] MEDS: ATORVASTATIN 80 MG TAB PO SCH (08:49)
[2020-12-31] MEDS ORDERED: APIXABAN 2.5 MG TABLET PO SCH (09:00)
[2020-12-31] MEDS: ISOSORBIDE MONONITRATE ER 30 MG TAB.ER.24H PO SCH (11:37)
--- NOTE | 2020-12-31 11:52 | P.PN ---
<RebeccaJessica medina - Last Filed: 12/31/20 11:41> Subjective Progress Note Date: 12/31/20 CHIEF COMPLAINT: Shortness of breath HISTORY OF PRESENT ILLNESS: Patient is followed by surgical service for his large bowel ileus. Patient required transfer back to the ICU due to elevated respiratory rate and increased shortness of breath on 12/30/2020. He was found to be Covid positive. Patient is currently sitting up in bed he appears comfortable. He is on 2 L of oxygen. Abdominal x-ray from today still showing a persistent ileus. Per nursing staff patient did have 3 liquidy bowel movements 2 of them last night and one this morning. His abdomen is soft. And he has been reporting that he is hungry. Afebrile. WBC 9.0 Hgb 9.9 platelets 111 d-dimer 1.60 sodium 135 potassium 3.4 creatinine 2.48 PHYSICAL EXAM: VITAL SIGNS: Reviewed GENERAL: Well-developed in no acute distress. HEENT: No sclera icterus. Extraocular movements grossly intact. Moist buccal mucosa. Head is atraumatic, normocephalic. Hears conversational speech. No nasal drainage. NECK: Supple without lymphadenopathy. CHEST: Non-labored respirations and equal bilateral excursions. CARDIOVASCULAR: Palpable 2+ radial pulses. ABDOMEN: Soft. Mildly distended. Nontender. MUSCULOSKELETAL: No clubbing or cyanosis. NEUROLOGIC: No focal or lateralizing signs. Cranial nerves II through XII grossly intact. PSYCH: Appropriate affect. Alert and oriented to person, place and time. SKIN: Well perfused. Good skin turgor. ASSESSMENT: 1. Abdominal distention with Large bowel ileus 2. Covid 19 pneumonia 3. Coronary artery disease with history of stent 4. Acute on chronic congestive heart failure 5. History of recent cardiac event requiring cardiopulmonary resuscitation 6. Diabetes type 2, [id number] 7. Hypokalemia 8. Acute on chronic renal injury 9. Anemia 10. Leukopenia PLAN: -Continue ICU management -Continue supportive care -Keep patient nothing by mouth for now -Potassium being replaced -Continue Dulcolax suppositories daily -Further recommendations forthcoming per surgeon Physician Surface Lay Out Technician note has been reviewed by physician. Signing provider agrees with the documented findings, assessment, and plan of care. Objective - Vital Signs Vital signs: Vital Signs Temp 98.0 F 12/31/20 08:00 Pulse 66 03/22/21 11:00 Resp 23 12/31/20 11:00 BP 85/59 12/31/20 11:00 Pulse Ox 95 12/31/20 11:00 Intake & Output 12/30/20 12/31/20 12/31/20 18:59 06:59 18:59 Intake Total 700 50 Output Total 201 500 100 Balance 499 -500 -50 Weight 95.4 kg Intake: Intake, IV Titration 200 50 Amount Piperacillin-Tazobactam 3 200 50 .375 gm In Sodium Chloride 0.9% 100 ml @ 25 mls/hr IVPB Q8H [facility] Rx#: [id number] Oral 500 Output: Urine 200 500 100 Urine/Stool Mix 1 Other: Voiding Method Urinal Urinal # Bowel Movements 1 1 - Labs CBC & Chem 7: 12/31/20 02:51 12/31/20 09:28 Labs: Abnormal Lab Results - Last 24 Hours (Table) 12/30/20 12/30/20 12/30/20 Range/Units 03:57 16:49 20:22 RBC (4.30-5.90) m/uL Hgb (13.0-17.5) gm/dL Hct (39.0-53.0) % RDW (11.5-15.5) % Plt Count (150-450) k/uL Neutrophils # (1.3-7.7) k/uL Lymphocytes # (1.0-4.8) k/uL D-Dimer (<0.60) mg/L FEU Sodium (137-145) mmol/L Potassium (3.5-5.1) mmol/L Carbon Dioxide (22-30) mmol/L BUN (9-20) mg/dL Creatinine (0.66-1.25) mg/dL Glucose (74-99) mg/dL POC Glucose (mg/dL) 158 H 128 H (75-99) mg/dL Calcium (8.4-10.2) mg/dL AST (17-59) U/L Lactate Dehydrogenase (313-618) U/L C-Reactive Protein (<10.0) mg/L Total Protein (6.3-8.2) g/dL Albumin (3.5-5.0) g/dL Procalcitonin 8.80 H (0.02-0.09) ng/mL 12/31/20 12/31/20 12/31/20 Range/Units 02:51 02:51 02:51 RBC 3.59 L (4.30-5.90) m/uL Hgb 9.9 L (13.0-17.5) gm/dL Hct 31.0 L (39.0-53.0) % RDW 16.2 H (11.5-15.5) % Plt Count 111 L (150-450) k/uL Neutrophils # 8.5 H (1.3-7.7) k/uL Lymphocytes # 0.2 L (1.0-4.8) k/uL D-Dimer 1.60 H (<0.60) mg/L FEU Sodium 135 L (137-145) mmol/L Potassium 3.1 L (3.5-5.1) mmol/L Carbon Dioxide 18 L (22-30) mmol/L BUN 45 H (9-20) mg/dL Creatinine 2.48 H (0.66-1.25) mg/dL Glucose 114 H (74-99) mg/dL POC Glucose (mg/dL) (75-99) mg/dL Calcium 7.8 L (8.4-10.2) mg/dL AST 71 H (17-59) U/L Lactate Dehydrogenase 646 H (313-618) U/L C-Reactive Protein 203.7 H (<10.0) mg/L Total Protein 5.2 L (6.3-8.2) g/dL Albumin 2.8 L (3.5-5.0) g/dL Procalcitonin (0.02-0.09) ng/mL 12/31/20 Range/Units 09:28 RBC (4.30-5.90) m/uL Hgb (13.0-17.5) gm/dL Hct (39.0-53.0) % RDW (11.5-15.5) % Plt Count (150-450) k/uL Neutrophils # (1.3-7.7) k/uL Lymphocytes # (1.0-4.8) k/uL D-Dimer (<0.60) mg/L FEU Sodium (137-145) mmol/L Potassium 3.4 L (3.5-5.1) mmol/L Carbon Dioxide (22-30) mmol/L BUN (9-20) mg/dL Creatinine (0.66-1.25) mg/dL Glucose (74-99) mg/dL POC Glucose (mg/dL) (75-99) mg/dL Calcium (8.4-10.2) mg/dL AST (17-59) U/L Lactate Dehydrogenase (313-618) U/L C-Reactive Protein (<10.0) mg/L Total Protein (6.3-8.2) g/dL Albumin (3.5-5.0) g/dL Procalcitonin (0.02-0.09) ng/mL Microbiology - Last 24 Hours (Table) 12/30/20 00:58 Blood Culture Gram Stain - Preliminary Blood Blood Culture - Preliminary Presumptive MRSA 12/30/20 00:58 Blood Culture - Final Blood <Thuy Alvarado - Last Filed: 12/31/20 20:57> Subjective Patient seen and evaluated. Please see additional documentation below. CHIEF COMPLAINT: Ileus HISTORY OF PRESENT ILLNESS: The patient is a 70 year old male admitted for acute on chronic congestive heart failure. He has had multiple cardiac events with return from the floor to the ICU. His diet was held as he had recurrent abdominal distention and ileus. He reports his last colonoscopy was more than 5 to 10 years ago. His last colonoscopy was canceled due to severe heart disease. He is passing flatus and having loose bowel movements. REVIEW OF ORGAN SYSTEMS: No fevers or chills. Has intermittent dyspnea. No blood in stools PHYSICAL EXAM: VITALS: Reviewed CONSTITUTIONAL: Well developed and in no acute distress. EYES: Conjuctivae without sclera icterus. Extraocular movements grossly intact. HEAD, EARS, NOSE, THROAT: Moist buccal mucosa. Head is atraumatic, normocephalic. Hears conversational speech. No nasal drainage. NECK: No thyroidomegaly. RESPIRATORY: Non-labored respirations and equal bilateral excursions. CARDIOVASCULAR: Regular rate and rhythm. ABDOMEN: No peritonitis. Nontender. Mild abdominal distention MUSCULOSKELETAL: No clubbing. No cyanosis. SKIN: Well perfused with good skin turgor. NEUROLOGIC: Cranial nerves II through XII grossly intact. Sensation upper and extremities intact. No focal or lateralizing signs. PSYCH: Appropriate affect. Alert and oriented to person, place and time. Displays appropriate insight. CLINCAL LABS: Reviewed. WBC normal 9.0, Hemoglobin down 11.2 to 9.9, potassium improved 3.1 to 4.0. Creatinine elevated 1.5 to 2.48 STUDIES: CT of the abdomen and pelvis re-evaluated with large bowel dilation proximal and distal to the sigmoid colon.F ocal area at sigmoid colon of stenosis with neoplasm cannot be excluded. ASSESSMENT: 1. Abdominal distention with large bowel ileus 2. Coronary artery disease with history of stent 3. Acute on chronic congestive heart failure 4. History of recent cardiac event requiring cardiopulmonary resuscitation 5. Diabetes type 2, [id number] 6. Hypokalemia 7. Acute on chronic renal injury 8. Anemia 9. Leukopenia, improved. PLAN: 1. He reports not having a recent colonoscopy. With re-evaluation of his CT scan, a sigmoid neoplasm cannot be excluded. 2. Recommend tumor markers for colon neoplasm. 3. May start liquid diet cautiously. 4. Correct electrolytes. 5. Start simethicone. Objective - Vital Signs Vital signs: Vital Signs Temp 98.1 F 12/31/20 12:00 Pulse 62 12/31/20 14:00 Resp 21 12/31/20 14:00 BP 97/61 12/31/20 14:00 Pulse Ox 93 L 12/31/20 14:00 Intake & Output 12/30/20 12/31/20 12/31/20 18:59 06:59 18:59 Intake Total 700 100 Output Total 201 500 225 Balance 499 -500 -125 Weight 95.4 kg Intake: Intake, IV Titration 200 100 Amount Piperacillin-Tazobactam 3 200 100 .375 gm In Sodium Chloride 0.9% 100 ml @ 25 mls/hr IVPB Q8H [facility] Rx#: [id number] Oral 500 Output: Urine 200 500 225 Urine/Stool Mix 1 Other: Voiding Method Urinal Urinal # Bowel Movements 1 1 - Labs CBC & Chem 7: 12/31/20 02:51 12/31/20 15:21 Labs: Abnormal Lab Results - Last 24 Hours (Table) 12/30/20 12/30/20 12/31/20 Range/Units 16:49 20:22 02:51 RBC 3.59 L (4.30-5.90) m/uL Hgb 9.9 L (13.0-17.5) gm/dL Hct 31.0 L (39.0-53.0) % RDW 16.2 H (11.5-15.5) % Plt Count 111 L (150-450) k/uL Neutrophils # 8.5 H (1.3-7.7) k/uL Lymphocytes # 0.2 L (1.0-4.8) k/uL D-Dimer (<0.60) mg/L FEU Sodium (137-145) mmol/L Potassium (3.5-5.1) mmol/L Carbon Dioxide (22-30) mmol/L BUN (9-20) mg/dL Creatinine (0.66-1.25) mg/dL Glucose (74-99) mg/dL POC Glucose (mg/dL) 158 H 128 H (75-99) mg/dL Calcium (8.4-10.2) mg/dL AST (17-59) U/L Lactate Dehydrogenase (313-618) U/L C-Reactive Protein (<10.0) mg/L Total Protein (6.3-8.2) g/dL Albumin (3.5-5.0) g/dL 12/31/20 12/31/20 12/31/20 Range/Units 02:51 02:51 09:28 RBC (4.30-5.90) m/uL Hgb (13.0-17.5) gm/dL Hct (39.0-53.0) % RDW (11.5-15.5) % Plt Count (150-450) k/uL Neutrophils # (1.3-7.7) k/uL Lymphocytes # (1.0-4.8) k/uL D-Dimer 1.60 H (<0.60) mg/L FEU Sodium 135 L (137-145) mmol/L Potassium 3.1 L 3.4 L (3.5-5.1) mmol/L Carbon Dioxide 18 L (22-30) mmol/L BUN 45 H (9-20) mg/dL Creatinine 2.48 H (0.66-1.25) mg/dL Glucose 114 H (74-99) mg/dL POC Glucose (mg/dL) (75-99) mg/dL Calcium 7.8 L (8.4-10.2) mg/dL AST 71 H (17-59) U/L Lactate Dehydrogenase 646 H (313-618) U/L C-Reactive Protein 203.7 H (<10.0) mg/L Total Protein 5.2 L (6.3-8.2) g/dL Albumin 2.8 L (3.5-5.0) g/dL 12/31/20 Range/Units 12:29 RBC (4.30-5.90) m/uL Hgb (13.0-17.5) gm/dL Hct (39.0-53.0) % RDW (11.5-15.5) % Plt Count (150-450) k/uL Neutrophils # (1.3-7.7) k/uL Lymphocytes # (1.0-4.8) k/uL D-Dimer (<0.60) mg/L FEU Sodium (137-145) mmol/L Potassium (3.5-5.1) mmol/L Carbon Dioxide (22-30) mmol/L BUN (9-20) mg/dL Creatinine (0.66-1.25) mg/dL Glucose (74-99) mg/dL POC Glucose (mg/dL) 152 H (75-99) mg/dL Calcium (8.4-10.2) mg/dL AST (17-59) U/L Lactate Dehydrogenase (313-618) U/L C-Reactive Protein (<10.0) mg/L Total Protein (6.3-8.2) g/dL Albumin (3.5-5.0) g/dL Microbiology - Last 24 Hours (Table) 12/30/20 00:58 Blood Culture Gram Stain - Preliminary Blood Blood Culture - Preliminary Presumptive MRSA 12/30/20 00:58 Blood Culture - Final Blood Assessment and Plan (1) Anemia Current Visit: Yes Status: Acute Code(s): D64.9 - ANEMIA, UNSPECIFIED SNOMED Code(s): 690145126 (2) Leukopenia Current Visit: Yes Status: Acute Code(s): D72.819 - DECREASED WHITE BLOOD CELL COUNT, UNSPECIFIED SNOMED Code(s): 48308416 (3) Acute on chronic renal insufficiency Current Visit: Yes Status: Acute Code(s): N28.9 - DISORDER OF KIDNEY AND URETER, UNSPECIFIED; N18.9 - CHRONIC KIDNEY DISEASE, UNSPECIFIED SNOMED Code(s): 322643914 (4) CHF (congestive heart failure) Current Visit: Yes Status: Acute Code(s): I50.9 - HEART FAILURE, UNSPECIFIED SNOMED Code(s): 61982717 (5) Cardiopulmonary arrest Current Visit: Yes Status: Acute Code(s): I46.9 - CARDIAC ARREST, CAUSE UNSPECIFIED SNOMED Code(s): 837753813 (6) Elevated troponin Current Visit: Yes Status: Acute Code(s): R77.8 - OTHER SPECIFIED ABNORMALITIES OF PLASMA PROTEINS SNOMED Code(s): 046477134 (7) Hypokalemia Current Visit: Yes Status: Acute Code(s): E87.6 - HYPOKALEMIA SNOMED Code(s): 94446873 (8) Ileus Current Visit: Yes Status: Acute Code(s): K56.7 - ILEUS, UNSPECIFIED SNOMED Code(s): 505195605
--- NOTE | 2020-12-31 12:00 | P.PN ---
Subjective Progress Note Date: 12/31/20 (delayed charting seen at 0930) Principal diagnosis: shortness of breath Patient is a 70-year-old male with a past medical history of coronary artery disease with history of CABG in 1999, diabetes mellitus type 2, hypertension, and dyslipidemia who presented to the emergency room with shortness of breath. He was subsequently found to have an acute exacerbation of systolic congestive heart failure. He was tachypneic and hypoxic on presentation. He was started on IV heparin due to an elevated troponin. He was started on Lasix and admitted. Cardiology was consulted who agreed with continuing Lasix and IV heparin. He had some optimal diuresis and therefore his Lasix was increased to 80 mg every 8 hours. Due to his low ejection fraction of 20-25% which was newly discovered plan was for cardiac catheterization, this was completed on 12/23 his stent were found to be patent LAD was widely open, with no additional intervention required. He was noted to have worsening renal function and his lisinopril was discontinued. He was transitioned off of heparin drip and onto Eliquis. He was also started on dobutamine. He did go into A. fib and was started on IV amiodarone and then transitioned to oral amiodarone. He was noted to have worsening renal function was seen by nephrology on 12/23. They agreed with continuing dobutamine drip and maintaining a systolic blood pressure greater than 110. On the evening of 12/23 patient seen in follow going to the bathroom and was found to be unresponsive with possible loss of pulses. CPR was initiated and after 1 round of CPR ROSC was noted, concern for possible vasovagal episode. He was awake and alert and did not require intubation. He was transferred to the ICU in critical care was consulted. There was some conc kay of possible seizure activity versus true cardiac arrest. Head CT was completed which showed no acute process, EEG was normal. His transitioned off of dobutamine on 12/24. He developed abdominal distension, nausea, and abdominal pain on 12/[address] demonstrated large bowel ileus. He did have an enema which resulted in liquid bowel movement and he had one large formed BM the morning of 12/26, the rest were liquid. His renal function was slowly improving and he was kept on lasix. He started having multiple liquid bowel movements. He continued to have some liquid bowel movements but was tolerating a diet. Overnight on 12/29 the patient started spiking fevers at approximately 8 PM. He experienced respiratory distress and was noted to be hypoxemic. CXR demonstrated patchy perihilar infiltrates and COVID testing came back positive. He required BiPap for O2 support he was transferred to the ICU. Pulmonary was reconsulted. He was noted to have high procalcitonin and was started on Zosyn. He then became nauseated and surgery made him NPO and ordered dulcolax. + blood culture and possible MRSA on 12/30 started on vanco. Patient seen and examined at bedside. He complains of wanting to eat, no nausea, Breathing okay still some swelling in lower extremities. General: ill appearing, mild distress, appears at stated age Derm: warm, dry, multiple areas of ecchymosis Head: atraumatic, normocephalic, symmetric Eyes: EOMI, no lid lag, anicteric sclera Mouth: no lip lesion, mucus membranes dry Cardiovascular: S1S2 irreg wth grade 3 ejection murmur, positive posterior tibial pulse bilateral, Lungs: + Ronchi bilateral bases, no accessory muscle use, no conversational dyspnea Abdominal: soft, + high pitched bowel sounds, nontender to palpation, no guarding, no appreciable organomegaly Ext: no gross muscle atrophy, 2+ edema b/l LE, no contractures Neuro: CN II-XI grossly intact, no focal neuro deficits Psych: fatigued but awakes to speak, oriented, appropriate affect Covid-19 pneumonitis with acute hypoxic respiratory failure - Pulm recs - Decadron - Follow inflammatory labs - vit C, zinc, vit D - possible bacterial pneumonia with elevated procalcitonin, continue zosyn + Blood cultures - continue vanco - repeat blood culture - await final reuslts. Acute exacerbation of systolic congestive heart failure with ejection fraction 20-25% -Cardiology recommendations appreciated -Strict I's and O's, daily weights -Lopressor, losartan on hold due to LULÚ -Off dobutamine -Lasix IV BID (hold) LULÚ, worsening: cardiorenal with component of contrast induced nephropathy, m etabolic acidosis - nephrology recs: IV lasix BID (hold) - hold losartan -Off fluids -On oral bicarb large bowel ileus - NPO, rectal dulcolax - Repeat x-ray in a.m. - s/p enema X 1 - Surgery recs appreciated New-onset Paroxysmal A. fib -Started on IV amiodarone and then transitioned to oral amiodarone -Eliquis, renal dose adjusted. Non-STEMI with history of coronary artery disease and CABG -Cath with patent GAYLE to LAD and prior stents, no intervention needed -Continue with Plavix, Lipitor, Imdur, Lopressor Iron deficiency anemia -Follow CBC -No indication for transfusion at this point in time. -Recommend colonoscopy as outpatient in light of ileus, frequent use of imodium at home, and iron deficiency Diabetes mellitus type 2 - off metformin - SSI - follow BS - A1C 6 Hypertension - controlled - Continue with metoprolol - follow BP Dyslipidemia - Statin Hypomagnesemia, resolved thrombocytopenia, resolved Cardiac event possible syncope vs cardiac arrest Hypokalemia, resolved Updated [id number] Tara over the phone on possible bacterial infection and on abx. DVT prophylaxis: Nildaqunayely Discussed with: patient, nursing Anticipated discharge:undetermined Anticipated discharge place: undetermined A total of 35 minutes was spent on the care of this complex patient more than 50% of the time was spent in counseling and care coordination. Objective - Vital Signs Vital signs: Vital Signs Temp 98.0 F 12/31/20 08:00 Pulse 66 12/31/20 11:00 Resp 23 12/31/20 11:00 BP 85/59 12/31/20 11:00 Pulse Ox 95 12/31/20 11:00 Intake & Output 12/30/20 12/31/20 12/31/20 18:59 06:59 18:59 Intake Total 700 50 Output Total 201 500 100 Balance 499 -500 -50 Weight 95.4 kg Intake: Intake, IV Titration 200 50 Amount Piperacillin-Tazobactam 3 200 50 .375 gm In Sodium Chloride 0.9% 100 ml @ 25 mls/hr IVPB Q8H [facility] Rx#: [id number] Oral 500 Output: Urine 200 500 100 Urine/Stool Mix 1 Other: Voiding Method Urinal Urinal # Bowel Movements 1 1 - Labs CBC & Chem 7: 12/31/20 02:51 12/31/20 09:28 Labs: Abnormal Lab Results - Last 24 Hours (Table) 12/30/20 12/30/20 12/30/20 Range/Units 03:57 16:49 20:22 RBC (4.30-5.90) m/uL Hgb (13.0-17.5) gm/dL Hct (39.0-53.0) % RDW (11.5-15.5) % Plt Count (150-450) k/uL Neutrophils # (1.3-7.7) k/uL Lymphocytes # (1.0-4.8) k/uL D-Dimer (<0.60) mg/L FEU Sodium (137-145) mmol/L Potassium (3.5-5.1) mmol/L Carbon Dioxide (22-30) mmol/L BUN (9-20) mg/dL Creatinine (0.66-1.25) mg/dL Glucose (74-99) mg/dL POC Glucose (mg/dL) 158 H 128 H (75-99) mg/dL Calcium (8.4-10.2) mg/dL AST (17-59) U/L Lactate Dehydrogenase (313-618) U/L C-Reactive Protein (<10.0) mg/L Total Protein (6.3-8.2) g/dL Albumin (3.5-5.0) g/dL Procalcitonin 8.80 H (0.02-0.09) ng/mL 12/31/20 12/31/20 12/31/20 Range/Units 02:51 02:51 02:51 RBC 3.59 L (4.30-5.90) m/uL Hgb 9.9 L (13.0-17.5) gm/dL Hct 31.0 L (39.0-53.0) % RDW 16.2 H (11.5-15.5) % Plt Count 111 L (150-450) k/uL Neutrophils # 8.5 H (1.3-7.7) k/uL Lymphocytes # 0.2 L (1.0-4.8) k/uL D-Dimer 1.60 H (<0.60) mg/L FEU Sodium 135 L (137-145) mmol/L Potassium 3.1 L (3.5-5.1) mmol/L Carbon Dioxide 18 L (22-30) mmol/L BUN 45 H (9-20) mg/dL Creatinine 2.48 H (0.66-1.25) mg/dL Glucose 114 H (74-99) mg/dL POC Glucose (mg/dL) (75-99) mg/dL Calcium 7.8 L (8.4-10.2) mg/dL AST 71 H (17-59) U/L Lactate Dehydrogenase 646 H (313-618) U/L C-Reactive Protein 203.7 H (<10.0) mg/L Total Protein 5.2 L (6.3-8.2) g/dL Albumin 2.8 L (3.5-5.0) g/dL Procalcitonin (0.02-0.09) ng/mL 12/31/20 Range/Units 09:28 RBC (4.30-5.90) m/uL Hgb (13.0-17.5) gm/dL Hct (39.0-53.0) % RDW (11.5-15.5) % Plt Count (150-450) k/uL Neutrophils # (1.3-7.7) k/uL Lymphocytes # (1.0-4.8) k/uL D-Dimer (<0.60) mg/L FEU Sodium (137-145) mmol/L Potassium 3.4 L (3.5-5.1) mmol/L Carbon Dioxide (22-30) mmol/L BUN (9-20) mg/dL Creatinine (0.66-1.25) mg/dL Glucose (74-99) mg/dL POC Glucose (mg/dL) (75-99) mg/dL Calcium (8.4-10.2) mg/dL AST (17-59) U/L Lactate Dehydrogenase (313-618) U/L C-Reactive Protein (<10.0) mg/L Total Protein (6.3-8.2) g/dL Albumin (3.5-5.0) g/dL Procalcitonin (0.02-0.09) ng/mL Microbiology - Last 24 Hours (Table) 12/30/20 00:58 Blood Culture Gram Stain - Preliminary Blood Blood Culture - Preliminary Presumptive MRSA 12/30/20 00:58 Blood Culture - Final Blood
[2020-12-31 12:30] LABS: Glucose,Whole Blood 152 mg/dL (75-99)
[2020-12-31] MEDS: FERROUS SULFATE 325 MG TAB PO SCH (13:26)
--- NOTE | 2020-12-31 14:42 | PN ---
PROGRESS NOTE Patient is being followed for acute kidney injury. He was transferred to the ICU secondary to shortness of breath, any he turned out to be positive for COVID-19. The patient was started on diuretics as he had significant edema and evidence of bilateral pulmonary infiltrates, which could be either CHF versus pneumonia from underlying COVID infection. Serum creatinine has been slowly increasing. It is up to 2.4. Patient did receive IV contrast for cardiac catheterization on 12/23/2020. Blood pressure has been on the lower side with systolic around 85 to 88 mmHg. The patient was not examined. Case discussed with nursing staff. Blood pressure today was 87/55, heart rate 72 per minute. He is afebrile. Lower extremities continue to have edema 2+ bilaterally. CONSULAR OFFICER exam grossly intact. LABS: Labs show sodium of 135, potassium 3.1, CO2 is 18, BUN 45, creatinine 2.48, hemoglobin 9.9 g/dL. ASSESSMENT: 1. Acute kidney injury, acute tubular necrosis, currently nonoliguric associated with underlying infection as well as contrast administration. Possible component of cardiorenal syndrome as well. The patient was being diuresed. His diuretics are currently on hold. He is off of IV fluids. Respiratory status appears fairly stable. He is maintained on steroids for COVID pneumonia. He may need to resume gentle diuresis. No nephrotoxic agents on board. Definitely the renal function has worsened with ongoing hypotension. I will add midodrine. 2. Hypotension associated with underlying infection. Rule out adrenal insufficiency. Check random cortisol level and add midodrine. 3. COVID-19 pneumonia. 4. Congestive heart failure, ejection fraction 20%. 5. Chronic kidney disease stage 3, baseline creatinine about 1.3 mg/dL. PLAN: Add midodrine. Check random cortisol level. May need to add loop diuretics depending on volume status and respiratory status. MMODL / IJN: [id number] /
[2020-12-31 16:23] LABS: Glucose,Whole Blood 125 mg/dL (75-99)
[2020-12-31] MEDS: MIDODRINE 5 MG TAB PO SCH (17:08)
[2020-12-31] MEDS ORDERED: MIDODRINE 5 MG TAB PO SCH (17:30)
[2020-12-31 20:50] LABS: Glucose,Whole Blood 150 mg/dL (75-99)
[2020-12-31] MEDS: APIXABAN 2.5 MG TABLET PO SCH (21:14)
[2020-12-31] MEDS: METOPROLOL TARTRATE 25 MG TAB PO SCH (21:14)
[2021-01-01] MEDS ORDERED: VANCOMYCIN IV PER PHARMACY 1 EACH MISC MISCELLANE PRN (02:47)
[2021-01-01] MEDS ORDERED: VANCOMYCIN 1,500 MG in SODIUM CHLORIDE 0.9% 250 ML IVPB ONE (03:00)
[2021-01-01] MEDS: PIPERACILLIN-TAZOBACTAM 3.375 GM in SODIUM CHLORIDE 0.9% 100 ML IVPB SCH ×3 (03:24→17:31)
[2021-01-01 03:31] LABS: Anisocytosis Slight; Basophils % (A) 0 %; Eosinophils % (A) 0 %; HCT 34.2 % (39.0-53.0); HGB 10.9 gm/dL (13.0-17.5); Hypochromasia Slight; Lymphocytes # (A) 0.2 k/uL (1.0-4.8); Lymphocytes % (A) 2 %; MCV 87.3 fL (80.0-100.0); Monocytes # (A) 0.3 k/uL (0-1.0); Monocytes % (A) 3 %; Neutrophils # (A) 9.6 k/uL (1.3-7.7); Neutrophils % (A) 94 %; Platelet Count 125 k/uL (150-450); RBC 3.91 m/uL (4.30-5.90); RDW 16.3 % (11.5-15.5); WBC 10.2 k/uL (3.8-10.6)
[2021-01-01] MEDS: HYDROcodone/APAP 5-325MG 1 EACH TAB PO PRN (03:33)
[2021-01-01 03:56] LABS: Albumin 2.9 g/dL (3.5-5.0); Calcium 8.1 mg/dL (8.4-10.2); Magnesium 2.1 mg/dL (1.6-2.3); Potassium 3.9 mmol/L (3.5-5.1); Total Bilirubin 0.8 mg/dL (0.2-1.3); Total Protein 5.5 g/dL (6.3-8.2)
[2021-01-01 04:42] LABS: C Reactive Protein 164.8 mg/L (<10.0)
[2021-01-01] MEDS: INSULIN ASPART (NovoLOG) 100 UNIT/ML VIAL SQ SCH ×4 (05:05→20:57)
[2021-01-01 06:51] LABS: Glucose,Whole Blood 124 mg/dL (75-99)
--- NOTE | 2021-01-01 08:18 | P.PN ---
Subjective Progress Note Date: 01/01/21 12/31/2020, patient is being seen in follow-up in the intensive care unit. The patient the patient is an acute hypoxic respiratory failure due to a combination of the congestion heart failure and coronavirus/Covid 19 related pneumonia. Note that the patient has CHF on the patient also has impaired left ventricular function with an ejection fraction of 20-25% and the patient is post cardiac catheterization and coronary stent placed earlier was noted to be normal and patent and no intervention was performed. The patient also is post brief cardiac arrest with PEA requiring CPR and return of spontaneous circulation occurred on 12/23/2020. Note that the patient's computed tomography scan of the head that was done showed no abnormalities an EEG was also normal. During the course of her treatment here in the hospital, the patient also developed an ileus with secondary abdominal distention and nausea and emesis and the CAT scan of the abdomen that was done on 12/25/2020 showed large bowel ileus. The patient has was given an enema which resulted in to a liquid bowel movement and subsequently the patient phoned 1 large bowel movement and the rest was essentially liquids. The patient is known to have CAD, previous bypass surgery, ischemic cardiomyopathy, diabetes mellitus, and she fibrillation which is a new onset in addition to hypertension and hyperlipidemia and history of colonic ileu s. The patient currently is in intensive care unit. The patient is on high flow oxygen 10 L per minute nasal cannula to maintain a saturation above 90%. The was dropped to Chest x-ray showing diffuse breath and pulmonary infiltrates. The patient is being treated with a combination of Decadron which is currently being given at a dose of 6 minute grams IV every 24 hours in addition to routine vitamin supplements for Covid 19 related pneumonia. At the same time, the patient is on broad-spectrum antibiotics with a combination of Zosyn and vancomycin. The antibiotic coverage essentially empiric as the patient has an elevated pro-calcitonin level. She has developed an acute kidney injury in the creatinine is up to 2.1 from a baseline of 1.32 at time of admission. This creatinine rises was from yesterday and based on that the patient on no diuretics. This acute kidney injury was thought to be related to a various factors including diuretics and contrast and heart failure. Based on the evolving acute kidney injury, the patient was taken off the diuretics. The patient is also in atrial fibrillation. The patient on amiodarone. The patient is on long-term and to coagulation with Eliquis. Creatinine today is up to 2.48 and the patient has staph aureus On 01/01/2021, the patient is being seen for a follow-up. The patient is quite comfortable on 3 L by nasal cannula. Repeat chest x-ray was done and it showed no major interval change compared to yesterday. Meanwhile, the patient is still in the intensive care unit and he is being treated for all these comorbidities. In terms of his respiratory status, the patient is still on Decadron 6 mg daily. His inflammatory markers show an LDH of 810 with a CRP of 164 which is down compared to yesterday. He did have staph aureus in the blood which is presumptively staph aureus. Due to concern of his underlying renal fa ilure, I stopped the vancomycin which probably has to be restarted back again. He is also on Zosyn. His pro-calcitonin level was as high as 8.8. A serum vancomycin level is not available at this point in time. Note that the patient also developed an acute kidney injury. Creatinine is at 2.5 which is slightly higher compared to yesterday. Serum bicarb is at 17 and the BUN is a 61. The patient's cardiac rhythm is still atrial fibrillation which is controlled for now. Abdominal ileus is still present as the patient's abdomen is slightly distended and patient is having liquid bowel movements. No nausea. No emesis. He is tolerating no direct for now and the patient is currently nothing by mouth. The abdominal film from yesterday showed persistence of ileus and distention of the large bowel. No abdominal pain at this point in time. As of his atrial fibrillation, the patient is on a combination of metoprolol 25 twice a day and amiodarone and the patient is on Eliquis 2.5 mg by mouth twice a day. His rate is currently controlled. His heart rate is in the mid 80s. Objective - Vital Signs Vital signs: Vital Signs Temp 99.2 F 01/01/21 04:00 Pulse 84 01/01/21 07:00 Resp 19 01/01/21 07:00 BP 112/69 01/01/21 07:00 Pulse Ox 95 01/01/21 07:00 Intake & Output 12/31/20 01/01/21 01/01/21 18:59 06:59 18:59 Intake Total 125 110 10 Output Total 225 426 101 Balance -100 -316 -91 Weight 96 kg Intake: IV 110 10 Normal saline 110 10 Intake, IV Titration 125 Amount Piperacillin-Tazobactam 3 125 .375 gm In Sodium Chloride 0.9% 100 ml @ 25 mls/hr IVPB Q8H [facility] Rx#: [id number] Output: Urine 225 425 100 Stool 1 1 Other: Voiding Method Urinal Urinal # Voids 0 1 # Bowel Movements 1 1 - Exam General: ill appearing, mild distress, appears at stated age, currently on 3 L of oxygen by nasal cannula Derm: warm, dry, multiple areas of ecchymosis Head: Head exam was generally normal. There was no scleral icterus or corneal arcus. Mucous membranes were moist. Eyes: EOMI, no lid lag, anicteric sclera Mouth: no lip lesion, mucus membranes dry Cardiovascular: The patient is currently in an atrial fibrillation with S1S2 irreg wth grade 3 ejection murmur Lungs: High pitched wheeze bilateral, no rhonchi, no rales , patient is also having tach is midline bases bilaterally. Abdominal: soft, + high pitched bowel sounds, nontender to palpation, no guarding, no appreciable organomegaly Ext: no gross muscle atrophy, 2+ edema b/l LE, no contractures Neuro: Neurologically, the patient is awake and alert and the patient does not have any focal neurological deficit. Cranial nerves are essentially intact. Psych: fatigued but awakes to speak, oriented, appropriate affect - Labs CBC & Chem 7: 01/01/21 03:07 01/01/21 03:07 Labs: Abnormal Lab Results - Last 24 Hours (Table) 12/31/20 12/31/20 12/31/20 Range/Units 09:28 12:29 16:22 RBC (4.30-5.90) m/uL Hgb (13.0-17.5) gm/dL Hct (39.0-53.0) % RDW (11.5-15.5) % Plt Count (150-450) k/uL Neutrophils # (1.3-7.7) k/uL Lymphocytes # (1.0-4.8) k/uL D-Dimer (<0.60) mg/L FEU Sodium (137-145) mmol/L Potassium 3.4 L (3.5-5.1) mmol/L Carbon Dioxide (22-30) mmol/L BUN (9-20) mg/dL Creatinine (0.66-1.25) mg/dL Glucose (74-99) mg/dL POC Glucose (mg/dL) 152 H 125 H (75-99) mg/dL Calcium (8.4-10.2) mg/dL Lactate Dehydrogenase (313-618) U/L C-Reactive Protein (<10.0) mg/L Total Protein (6.3-8.2) g/dL Albumin (3.5-5.0) g/dL 12/31/20 01/01/21 01/01/21 Range/Units 20:48 03:07 03:07 RBC 3.91 L (4.30-5.90) m/uL Hgb 10.9 L (13.0-17.5) gm/dL Hct 34.2 L (39.0-53.0) % RDW 16.3 H (11.5-15.5) % Plt Count 125 L (150-450) k/uL Neutrophils # 9.6 H (1.3-7.7) k/uL Lymphocytes # 0.2 L (1.0-4.8) k/uL D-Dimer 1.92 H (<0.60) mg/L FEU Sodium (137-145) mmol/L Potassium (3.5-5.1) mmol/L Carbon Dioxide (22-30) mmol/L BUN (9-20) mg/dL Creatinine (0.66-1.25) mg/dL Glucose (74-99) mg/dL POC Glucose (mg/dL) 150 H (75-99) mg/dL Calcium (8.4-10.2) mg/dL Lactate Dehydrogenase (313-618) U/L C-Reactive Protein (<10.0) mg/L Total Protein (6.3-8.2) g/dL Albumin (3.5-5.0) g/dL 01/01/21 01/01/21 Range/Units 03:07 06:50 RBC (4.30-5.90) m/uL Hgb (13.0-17.5) gm/dL Hct (39.0-53.0) % RDW (11.5-15.5) % Plt Count (150-450) k/uL Neutrophils # (1.3-7.7) k/uL Lymphocytes # (1.0-4.8) k/uL D-Dimer (<0.60) mg/L FEU Sodium 136 L (137-145) mmol/L Potassium (3.5-5.1) mmol/L Carbon Dioxide 17 L (22-30) mmol/L BUN 61 H (9-20) mg/dL Creatinine 2.52 H (0.66-1.25) mg/dL Glucose 122 H (74-99) mg/dL POC Glucose (mg/dL) 124 H (75-99) mg/dL Calcium 8.1 L (8.4-10.2) mg/dL Lactate Dehydrogenase 810 H (313-618) U/L C-Reactive Protein 164.8 H (<10.0) mg/L Total Protein 5.5 L (6.3-8.2) g/dL Albumin 2.9 L (3.5-5.0) g/dL Microbiology - Last 24 Hours (Table) 12/31/20 07:30 Blood Culture - Final Blood 12/31/20 07:47 Blood Culture - Final Blood 12/31/20 10:30 Gram Stain - Preliminary Sputum Sputum Culture - Preliminary 12/30/20 00:58 Blood Culture Gram Stain - Preliminary Blood Blood Culture - Preliminary Presumptive MRSA Assessment and Plan Plan: 1 acute hypoxic respiratory failure, currently on 3 L of oxygen by nasal cannula, and the respiratory failure is essentially due to combination of CHF exacerbation and covid 19 related pneumonia, currently the patient is on Decadron. The chest x-ray stable with diffuse but the pulmonary infiltrates with probably some improvement compared to yesterday.. LDH is 810 which is low and CRP is high at at 164. 2 acute covid 19 related pneumonia currently on Decadron and this to a combination of vitamin C, zinc and vitamin D. Superimposed pneumonia is likely the patient had an elevated pro-calcitonin level and the patient is currently on Zosyn and vancomycin. Sputum has not resulted yet. 3 CHF with impaired left ventricular function and systolic heart failure with an ejection fraction of 20-25%. The patient was taken off diuretics due to an acute kidney injury. The patient was also off losartan and off dobutamine. 4 acute kidney injury, with interval worsening of the renal function and creatinine is up to 2.5, the patient is producing urine output in the order of 50 mL an hour. 5 large bowel ileus, please refer to the most recent CAT scan of the abdomen and the patient was given an enema with adequate bowel movements. General surgeries on the case 6 coronary artery disease, post non-STEMI, post cardiac catheterization with a patent GAYLE to LAD and patent previous stent inserted stents 7 new-onset atrial fibrillation, rate controlled on amiodarone and metoprolol and the patient is on long-term articulation with Eliquis 8 iron deficiency anemia 9. Diabetes mellitus type 2, currently off metformin due to acute kidney injury 10 hypertension 11 hyperlipidemia 12 thrombocytopenia, recovered 13 MRSA in the blood, exact source is not clear. Rule out MRSA sepsi s/bacteremia. Repeat blood cultures are being sent. Continue vancomycin for now. Plan keep Lasix hold Continue metoprolol, amiodarone and Eliquis for long-term anticoagulation vancomycin and continue the Zosyn Keep vancomycin trough at 4 PM and decide on the dosing accordingly. Repeat blood cultures Wean down the FiO2 as the patient is currently on 3 L by nasal cannula The patient is having liquidy bowel movements Eliquis down to 2.5 mg by mouth twice a day flat film of the abdomen was noted and the patient is currently nothing by mouth in general surgeries on the case Repeat abdominal films A given some applesauce or soft diet at a later stage once cleared by general surgery. We'll continue to follow
--- NOTE | 2021-01-01 09:27 | XR ---
Abdomen HISTORY: Ileus Single frontal view the abdomen correlated prior abdomen 12/31/2020 Distended loops of colon and small bowel are noted similar to prior exam, no evident pneumoperitoneum . Lung bases, entire abdomen not included on the exam. IMPRESSION: The exam is somewhat limited. If pneumoperitoneum is suspected clinically, then additiona l imaging is suggested.
--- NOTE | 2021-01-01 09:31 | XR ---
EXAMINATION TYPE: XR chest 1V portable DATE OF EXAM: 01/01/2021 COMPARISON: Chest x-ray 12/31/2020 HISTORY: Shortness of breath TECHNIQUE: Single frontal view of the chest is obtained. FINDINGS: Bilateral patchy airspace disease is again seen. Patient is post median sternotomy. Superi or mediastinal wires are fractured. Cardiac mediastinal silhouette is stable. No pneumothorax or pleu ral effusion. IMPRESSION: Correlate for pneumonia, edema not excluded.
[2021-01-01] MEDS: PANTOPRAZOLE 40 MG TABLET PO SCH (09:33)
[2021-01-01] MEDS: CLOPIDOGREL 75 MG TAB PO SCH (09:33)
[2021-01-01] MEDS: CHOLECALCIFEROL 25 MCG (1000 IU) TABLET PO SCH (09:33)
[2021-01-01] MEDS: METOPROLOL TARTRATE 25 MG TAB PO SCH ×2 (09:33→20:33)
[2021-01-01] MEDS: TAMSULOSIN 0.4 MG CAP.ER.24H PO SCH ×2 (09:33→20:32)
[2021-01-01] MEDS: ZINC SULFATE 220 MG CAP PO SCH (09:33)
[2021-01-01] MEDS: ASCORBIC ACID 500 MG TAB PO SCH (09:33)
[2021-01-01] MEDS: SODIUM BICARBONATE TAB 650 MG TAB PO SCH ×3 (09:33→20:33)
[2021-01-01] MEDS: ISOSORBIDE MONONITRATE ER 30 MG TAB.ER.24H PO SCH (09:33)
[2021-01-01] MEDS: AMIODARONE 200 MG TAB PO SCH ×2 (09:33→20:33)
[2021-01-01] MEDS: FERROUS SULFATE 325 MG TAB PO SCH (09:33)
[2021-01-01] MEDS: ATORVASTATIN 80 MG TAB PO SCH (09:33)
[2021-01-01] MEDS: allopurinoL 100 MG TAB PO SCH (09:34)
[2021-01-01] MEDS: MIDODRINE 5 MG TAB PO SCH ×2 (09:34→17:31)
[2021-01-01] MEDS: APIXABAN 2.5 MG TABLET PO SCH ×2 (09:34→20:33)
[2021-01-01] MEDS: DEXAMETHASONE SOD PHOSPHATE 10 MG/ML 1 ML VIAL IV SCH (09:34)
[2021-01-01] MEDS: SIMETHICONE 40 MG/0.6 ML DROPS 2,000 MG/30 ML BOTTLE PO SCH ×4 (09:35→20:33)
[2021-01-01] MEDS: bisacodyL 10 MG SUPP RECTAL SCH (09:36)
[2021-01-01 10:25] LABS: Ferritin 344.6 ng/mL (22.0-322.0)
--- NOTE | 2021-01-01 11:08 | PN ---
PROGRESS NOTE The patient is seen for followup for acute kidney injury. He is being treated for COVID pneumonia. Patient is maintained on steroids. He has had diarrhea. The patient's blood pressure has been stable at 114 to 113 mmHg. He is complaining of feeling tired today. No significant shortness of breath. Oxygen requirement is stable. Patient is maintained on 3 L nasal cannula with O2 sats at 95%. PHYSICAL EXAMINATION: On examination today, blood pressure 113/85, heart rate of 96 per minute. Patient is afebrile. Examination shows edema 1+ bilateral lower extremities. Abdomen is soft, distended, nontender. L[employer] K[employer] AND RE[employer]USTICIZING OPERATOR exam grossly intact. Lungs and heart are not examined. LABS: Labs show sodium 136, potassium 3.9, chloride 107, CO2 is 17, BUN 61, creatinine 2.52, hemoglobin 10.9 g/dL. ASSESSMENT: 1. Acute kidney injury, acute tubular necrosis, nonoliguric, currently off of Lasix. The patient has good urine output. He has been voiding on his own. His chest x- ray is stable and since oxygen requirements are stable, we can continue to maintain patient off of Lasix, also given the fact that he has been having diarrhea. 2. Non gap metabolic acidosis secondary to renal failure and diarrhea. 3. Hypotension, maintained on midodrine. 4. Blood culture was positive for MRSA. 5. COVID-19 pneumonia, maintained on Decadron. PLAN: Continue with midodrine. Continue off of Lasix. Repeat labs in a.m. Continue with the sodium bicarb tablets. Continue to avoid nephrotoxic medications. MMODL / IJN: [id number] /
[2021-01-01 11:21] LABS: Glucose,Whole Blood 157 mg/dL (75-99)
--- NOTE | 2021-01-01 12:00 | ECHOF ---
Referral Reason:repeat echo; covid MEASUREMENTS -------- HEIGHT: 170.2 cm WEIGHT: 95.3 kg BP: 88/58 RVIDd: 4.1 cm (< 3.3) IVSd: 1.5 cm (0.6 - 1.1) LVIDd: 6.4 cm (3.9 - 5.3) LVPWd: 1.5 cm (0.6 - 1.1) IVSs: 1.9 cm LVIDs: 5.3 cm LVPWs: 1.6 cm LA Diam: 4.2 cm (2.7 - 3.8) LAESV Index (A-L): 32.37 ml/m Ao Diam: 3.8 cm (2.0 - 3.7) AV Cusp: 1.1 cm (1.5 - 2.6) MV EXCURSION: 18.742 mm (> 18.000) MV EF SLOPE: 91 mm/s (70 - 150) EPSS: 1.9 cm AV maxP.29 mmHg AV meanP.79 mmHg RAP: 15.00 mmHg RVSP: 42.66 mmHg FINDINGS -------- Atrial fibrillation. This was a technically difficult study with suboptimal apical views. The left ventricle is moderately dilated. There is moderate concentric left ventricular hypertrophy . Overall left ventricular systolic function is severely impaired with, an EF between 20 - 25 %. The right ventricle is moderately enlarged. LA is midly dilated 29-33ml/m2. The right atrium is normal in size. 5.0mg of Lumason was utilized for enhancement of images There is mild aortic valve sclerosis. There is mild aortic stenosis present. Peak/mean gradient a cross the Aortic Valve is 23.29mmHg / 13.79mmHg. The mitral valve leaflets are mildly thickened. There is trace to mild mitral regurgitation. Mild tricuspid regurgitation present. There is mild pulmonary hypertension. The right ventricular systolic pressure, as measured by Doppler, is 42.66mmHg. There is no pulmonic regurgitation present. The aortic root is dilated measuring 3.8cm. IVC Not well visulized. There is no pericardial effusion. CONCLUSIONS -------- 1. The left ventricle is moderately dilated. 2. There is moderate concentric left ventricular hypertrophy. 3. Overall left ventricular systolic function is severely impaired with, an EF between 20 - 25 %. 4. The right ventricle is moderately enlarged. 5. LA is midly dilated 29-33ml/m2. 6. 5.0mg of Lumason was utilized for enhancement of images 7. There is mild aortic valve sclerosis. 8. There is mild aortic stenosis present. 9. Peak/mean gradient across the Aortic Valve is 23.29mmHg / 13.79mmHg. 10. The mitral valve leaflets are mildly thickened. 11. There is trace to mild mitral regurgitation. 12. Mild tricuspid regurgitation present. 13. There is mild pulmonary hypertension. 14. The right ventricular systolic pressure, as measured by Doppler, is 42.66mmHg. 15. There is no pulmonic regurgitation present. 16. The aortic root is dilated measuring 3.8cm. 17. There is no pericardial effusion. [employer]: Sheridan Vaughan RDCS
--- NOTE | 2021-01-01 13:21 | P.PN ---
Subjective Progress Note Date: 01/01/21 Patient is awake and alert. He does not have any complaints. He had a bowel movement this morning. He denies any nausea or vomiting. No acute events overnight reported by nursing staff. Objective - Vital Signs Vital signs: Vital Signs Temp 98.8 F 01/01/21 09:00 Pulse 70 01/01/21 11:00 Resp 23 01/01/21 11:00 BP 104/77 01/01/21 11:00 Pulse Ox 94 L 01/01/21 11:00 Intake & Output 12/31/20 01/01/21 01/01/21 18:59 06:59 18:59 Intake Total 125 110 380 Output Total 225 426 201 Balance -100 -316 179 Weight 96 kg Intake: IV 110 40 Normal saline 110 40 Intake, IV Titration 125 100 Amount Piperacillin-Tazobactam 3 125 100 .375 gm In Sodium Chloride 0.9% 100 ml @ 25 mls/hr IVPB Q8H [facility] Rx#: [id number] Oral 240 Output: Urine 225 425 200 Stool 1 1 Other: Voiding Method Urinal Urinal Urinal # Voids 0 1 # Bowel Movements 1 1 1 - Exam General: The patient is awake and alert, in no distress Eye: there is normal conjunctiva bilaterally. Neck: The neck is supple, there is no JVD. Cardiovascular: Normal S1-S2, no S3-S4, no murmurs. Respiratory: Lungs clear to auscultation bilaterally Gastrointestinal: Abdomen is soft, nontender Musculoskeletal: There is +3 edema up to the midshin Neurological:. Speech is normal. Skin: Skin is warm and dry - Labs CBC & Chem 7: 01/01/21 03:07 01/01/21 03:07 Labs: Abnormal Lab Results - Last 24 Hours (Table) 12/31/20 12/31/20 01/01/21 Range/Units 16:22 20:48 03:07 RBC 3.91 L (4.30-5.90) m/uL Hgb 10.9 L (13.0-17.5) gm/dL Hct 34.2 L (39.0-53.0) % RDW 16.3 H (11.5-15.5) % Plt Count 125 L (150-450) k/uL Neutrophils # 9.6 H (1.3-7.7) k/uL Lymphocytes # 0.2 L (1.0-4.8) k/uL D-Dimer (<0.60) mg/L FEU Sodium (137-145) mmol/L Carbon Dioxide (22-30) mmol/L BUN (9-20) mg/dL Creatinine (0.66-1.25) mg/dL Glucose (74-99) mg/dL POC Glucose (mg/dL) 125 H 150 H (75-99) mg/dL Calcium (8.4-10.2) mg/dL Ferritin (22.0-322.0) ng/mL Lactate Dehydrogenase (313-618) U/L C-Reactive Protein (<10.0) mg/L Total Protein (6.3-8.2) g/dL Albumin (3.5-5.0) g/dL 01/01/21 01/01/21 01/01/21 Range/Units 03:07 03:07 06:50 RBC (4.30-5.90) m/uL Hgb (13.0-17.5) gm/dL Hct (39.0-53.0) % RDW (11.5-15.5) % Plt Count (150-450) k/uL Neutrophils # (1.3-7.7) k/uL Lymphocytes # (1.0-4.8) k/uL D-Dimer 1.92 H (<0.60) mg/L FEU Sodium 136 L (137-145) mmol/L Carbon Dioxide 17 L (22-30) mmol/L BUN 61 H (9-20) mg/dL Creatinine 2.52 H (0.66-1.25) mg/dL Glucose 122 H (74-99) mg/dL POC Glucose (mg/dL) 124 H (75-99) mg/dL Calcium 8.1 L (8.4-10.2) mg/dL Ferritin 344.6 H (22.0-322.0) ng/mL Lactate Dehydrogenase 810 H (313-618) U/L C-Reactive Protein 164.8 H (<10.0) mg/L Total Protein 5.5 L (6.3-8.2) g/dL Albumin 2.9 L (3.5-5.0) g/dL 01/01/21 Range/Units 11:19 RBC (4.30-5.90) m/uL Hgb (13.0-17.5) gm/dL Hct (39.0-53.0) % RDW (11.5-15.5) % Plt Count (150-450) k/uL Neutrophils # (1.3-7.7) k/uL Lymphocytes # (1.0-4.8) k/uL D-Dimer (<0.60) mg/L FEU Sodium (137-145) mmol/L Carbon Dioxide (22-30) mmol/L BUN (9-20) mg/dL Creatinine (0.66-1.25) mg/dL Glucose (74-99) mg/dL POC Glucose (mg/dL) 157 H (75-99) mg/dL Calcium (8.4-10.2) mg/dL Ferritin (22.0-322.0) ng/mL Lactate Dehydrogenase (313-618) U/L C-Reactive Protein (<10.0) mg/L Total Protein (6.3-8.2) g/dL Albumin (3.5-5.0) g/dL Microbiology - Last 24 Hours (Table) 12/31/20 07:30 Blood Culture Gram Stain - Preliminary Blood 12/31/20 07:47 Blood Culture Gram Stain - Preliminary Blood 12/30/20 00:58 Blood Culture Gram Stain - Final Blood Blood Culture - Final Methicillin resist S. aureus 12/31/20 07:30 Blood Culture - Final Blood 12/31/20 07:47 Blood Culture - Final Blood 12/31/20 10:30 Gram Stain - Preliminary Sputum Sputum Culture - Preliminary Assessment and Plan Assessment: Patient is a 70-year-old male with a past medical history of coronary artery disease with history of CABG in 1999, diabetes mellitus type 2, hypertension, and dyslipidemia who presented to the emergency room with shortness of breath. He was subsequently found to have an acute exacerbation of systolic congestive heart failure. He was tachypneic and hypoxic on presentation. He was started on IV heparin due to an elevated troponin. He was started on Lasix and admitted. Cardiology was consulted who agreed with continuing Lasix and IV heparin. He had some optimal diuresis and therefore his Lasix was increased to 80 mg every 8 hours. Due to his low ejection fraction of 20-25% which was newly discovered plan was for cardiac catheterization, this was completed on 12/23 his stent were found to be patent LAD was widely open, with no additional intervention required. He was noted to have worsening renal function and his lisinopril was discontinued. He was transitioned off of heparin drip and onto Eliquis. He was also started on dobutamine. He did go into A. fib and was started on IV amiodarone and then transitioned to oral amiodarone. He was noted to have worsening renal function was seen by nephrology on 12/23. They agreed with continuing dobutamine drip and maintaining a systolic blood pressure greater than 110. On the evening of 12/23 patient seen in follow going to the bathroom and was found to be unresponsive with possible loss of pulses. CPR was initiated and after 1 round of CPR ROSC was noted, concern for possible vasovagal episode. He was awake and alert and did not require intubation. He was transferred to the ICU in critical care was consulted. There was some concern of possible seizure activity versus true cardiac arrest. Head CT was completed which showed no acute process, EEG was normal. His transitioned off of dobutamine on 12/24. He developed abdominal distension, nausea, and abdominal pain on 12/[address] demonstrated large bowel ileus. He did have an enema which resulted in liquid bowel movement and he had one large formed BM the morning of 12/26, the rest were liquid. His renal function was slowly improving and he was kept on lasix. He started having multiple liquid bowel movements. He continued to have some liquid bowel movements but was tolerating a diet. Overnight on 12/29 the patient started spiking fevers at approximately 8 PM. He experienced respiratory distress and was noted to be hypoxemic. CXR demonstrated patchy perihilar infiltrates and COVID testing came back positive. He required BiPap for O2 support he was transferred to the ICU. Pulmonary was reconsulted. He was noted to have high procalcitonin and was started on Zosyn. He then became nauseated and surgery made him NPO and ordered dulcolax. + blood culture and possible MRSA on 12/30 started on vanco. Covid-19 pneumonitis with acute hypoxic respiratory failure - Pulm recs - Decadron day #3 - Follow inflammatory labs - vit C, zinc, vit D - possible bacterial pneumonia with elevated procalcitonin, continue zosyn day #3 MRSA bacteremia -Persistent with blood culture positive on 12/30 and 12/31 -Repeat blood culture today pending - continue vanco - Exam source unclear. I would consult infectious disease for further evaluation Acute exacerbation of systolic congestive heart failure with ejection fraction 20-25% -Cardiology recommendations appreciated -Strict I's and O's, daily weights -Lopressor, losartan on hold due to LULÚ -Off dobutamine -I would resume IV Lasix 40 mg daily LULÚ, worsening: cardiorenal with component of contrast induced nephropathy, metabolic acidosis - nephrology recs - hold losartan -Off fluids -On oral bicarb large bowel ileus - Improving clinically. Seen and evaluated by general surgery. Start liquid diet today. New-onset Paroxysmal A. fib -Started on IV amiodarone and then transitioned to oral amiodarone -Eliquis, renal dose adjusted. Non-STEMI with history of coronary artery disease and CABG -Cath with patent GAYLE to LAD and prior stents, no intervention needed -Continue with Plavix, Lipitor, Imdur, Lopressor Iron deficiency anemia -Follow CBC -No indication for transfusion at this point in time. -Recommend colonoscopy as outpatient in light of ileus, frequent use of imodium at home, and iron deficiency Diabetes mellitus type 2 - off metformin - SSI - follow BS - A1C 6 Hypertension - controlled - Continue with metoprolol - follow BP Dyslipidemia - Statin Hypomagnesemia, resolved thrombocytopenia, resolved Cardiac event possible syncope vs cardiac arrest Hypokalemia, resolved Updated [id number] Tara over the phone on possible bacterial infection and on abx. DVT prophylaxis: Cara Discussed with: patient, nursing Anticipated discharge:undetermined Anticipated discharge place: undetermined A total of 35 minutes was spent on the care of this complex patient more than 50% of the time was spent in counseling and care coordination.
[2021-01-01] MEDS: FUROSEMIDE 10 MG/ML 4 ML VIAL IV SCH (13:39)
[2021-01-01 15:32] LABS: Carcinoembryonic Antigen 2.1 ng/mL (0.0-4.9)
[2021-01-01 16:37] LABS: Glucose,Whole Blood 146 mg/dL (75-99)
[2021-01-01 16:46] LABS: Alpha Fetoprotein, Tumor Mkr <2.5 ng/mL (0.0-7.9)
[2021-01-01 20:39] LABS: Glucose,Whole Blood 217 mg/dL (75-99)
[2021-01-02] MEDS: PIPERACILLIN-TAZOBACTAM 3.375 GM in SODIUM CHLORIDE 0.9% 100 ML IVPB SCH ×2 (01:08→08:18)
[2021-01-02 04:22] LABS: Anisocytosis Slight; Basophils % (A) 0 %; Eosinophils % (A) 0 %; HCT 31.6 % (39.0-53.0); HGB 10.3 gm/dL (13.0-17.5); Hypochromasia Slight; Lymphocytes # (A) 0.2 k/uL (1.0-4.8); Lymphocytes % (A) 3 %; MCH 27.7 pg (25.0-35.0); MCHC 32.5 g/dL (31.0-37.0); MCV 85.2 fL (80.0-100.0); Mean Platelet Volume 8.4; Monocytes # (A) 0.3 k/uL (0-1.0); Monocytes % (A) 4 %; Neutrophils # (A) 6.9 k/uL (1.3-7.7); Neutrophils % (A) 92 %; Platelet Count 141 k/uL (150-450); RBC 3.71 m/uL (4.30-5.90); RDW 16.3 % (11.5-15.5); WBC 7.6 k/uL (3.8-10.6)
[2021-01-02 04:34] LABS: Potassium 3.2 mmol/L (3.5-5.1)
[2021-01-02 04:35] LABS: Albumin 2.8 g/dL (3.5-5.0); Calcium 7.9 mg/dL (8.4-10.2); Magnesium 2.1 mg/dL (1.6-2.3); Total Bilirubin 0.7 mg/dL (0.2-1.3); Total Protein 5.3 g/dL (6.3-8.2)
[2021-01-02 04:40] LABS: Vancomycin,Random 19.7 ug/mL
[2021-01-02 06:30] LABS: Glucose,Whole Blood 174 mg/dL (75-99)
[2021-01-02] MEDS ORDERED: POTASSIUM CHLORIDE ER 20 MEQ TAB.ER PO STA (06:31)
[2021-01-02] MEDS: INSULIN ASPART (NovoLOG) 100 UNIT/ML VIAL SQ SCH ×4 (06:45→20:53)
[2021-01-02] MEDS: PANTOPRAZOLE 40 MG TABLET PO SCH (06:45)
[2021-01-02] MEDS: MIDODRINE 5 MG TAB PO SCH ×2 (06:46→16:48)
[2021-01-02] MEDS: SIMETHICONE 40 MG/0.6 ML DROPS 2,000 MG/30 ML BOTTLE PO SCH ×4 (08:17→20:54)
[2021-01-02] MEDS: ISOSORBIDE MONONITRATE ER 30 MG TAB.ER.24H PO SCH (08:18)
[2021-01-02] MEDS: ASCORBIC ACID 500 MG TAB PO SCH (08:18)
[2021-01-02] MEDS: AMIODARONE 200 MG TAB PO SCH ×2 (08:18→20:52)
[2021-01-02] MEDS: ATORVASTATIN 80 MG TAB PO SCH (08:18)
[2021-01-02] MEDS: allopurinoL 100 MG TAB PO SCH (08:18)
[2021-01-02] MEDS: TAMSULOSIN 0.4 MG CAP.ER.24H PO SCH ×2 (08:18→20:52)
[2021-01-02] MEDS: APIXABAN 2.5 MG TABLET PO SCH ×2 (08:18→20:51)
[2021-01-02] MEDS: ZINC SULFATE 220 MG CAP PO SCH (08:18)
[2021-01-02] MEDS: SODIUM BICARBONATE TAB 650 MG TAB PO SCH ×3 (08:18→20:52)
[2021-01-02] MEDS: CHOLECALCIFEROL 25 MCG (1000 IU) TABLET PO SCH (08:18)
[2021-01-02] MEDS: CLOPIDOGREL 75 MG TAB PO SCH (08:18)
[2021-01-02] MEDS: FERROUS SULFATE 325 MG TAB PO SCH (08:18)
[2021-01-02] MEDS: FUROSEMIDE 10 MG/ML 4 ML VIAL IV SCH (08:18)
[2021-01-02] MEDS: METOPROLOL TARTRATE 25 MG TAB PO SCH ×2 (08:18→20:52)
[2021-01-02] MEDS: bisacodyL 10 MG SUPP RECTAL SCH (08:19)
[2021-01-02] MEDS: DEXAMETHASONE SOD PHOSPHATE 10 MG/ML 1 ML VIAL IV SCH (08:19)
--- NOTE | 2021-01-02 08:35 | P.PN ---
Subjective Progress Note Date: 01/02/21 12/31/2020, patient is being seen in follow-up in the intensive care unit. The patient the patient is an acute hypoxic respiratory failure due to a combination of the congestion heart failure and coronavirus/Covid 19 related pneumonia. Note that the patient has CHF on the patient also has impaired left ventricular function with an ejection fraction of 20-25% and the patient is post cardiac catheterization and coronary stent placed earlier was noted to be normal and patent and no intervention was performed. The patient also is post brief cardiac arrest with PEA requiring CPR and return of spontaneous circulation occurred on 12/23/2020. Note that the patient's computed tomography scan of the head that was done showed no abnormalities an EEG was also normal. During the course of her treatment here in the hospital, the patient also developed an ileus with secondary abdominal distention and nausea and emesis and the CAT scan of the abdomen that was done on 12/25/2020 showed large bowel ileus. The patient has was given an enema which resulted in to a liquid bowel movement and subsequently the patient phoned 1 large bowel movement and the rest was essentially liquids. The patient is known to have CAD, previous bypass surgery, ischemic cardiomyopathy, diabetes mellitus, and she fibrillation which is a new onset in addition to hypertension and hyperlipidemia and history of colonic ileu s. The patient currently is in intensive care unit. The patient is on high flow oxygen 10 L per minute nasal cannula to maintain a saturation above 90%. The was dropped to Chest x-ray showing diffuse breath and pulmonary infiltrates. The patient is being treated with a combination of Decadron which is currently being given at a dose of 6 minute grams IV every 24 hours in addition to routine vitamin supplements for Covid 19 related pneumonia. At the same time, the patient is on broad-spectrum antibiotics with a combination of Zosyn and vancomycin. The antibiotic coverage essentially empiric as the patient has an elevated pro-calcitonin level. She has developed an acute kidney injury in the creatinine is up to 2.1 from a baseline of 1.32 at time of admission. This creatinine rises was from yesterday and based on that the patient on no diuretics. This acute kidney injury was thought to be related to a various factors including diuretics and contrast and heart failure. Based on the evolving acute kidney injury, the patient was taken off the diuretics. The patient is also in atrial fibrillation. The patient on amiodarone. The patient is on long-term and to coagulation with Eliquis. Creatinine today is up to 2.48 and the patient has staph aureus On 01/01/2021, the patient is being seen for a follow-up. The patient is quite comfortable on 3 L by nasal cannula. Repeat chest x-ray was done and it showed no major interval change compared to yesterday. Meanwhile, the patient is still in the intensive care unit and he is being treated for all these comorbidities. In terms of his respiratory status, the patient is still on Decadron 6 mg daily. His inflammatory markers show an LDH of 810 with a CRP of 164 which is down compared to yesterday. He did have staph aureus in the blood which is presumptively staph aureus. Due to concern of his underlying renal fa ilure, I stopped the vancomycin which probably has to be restarted back again. He is also on Zosyn. His pro-calcitonin level was as high as 8.8. A serum vancomycin level is not available at this point in time. Note that the patient also developed an acute kidney injury. Creatinine is at 2.5 which is slightly higher compared to yesterday. Serum bicarb is at 17 and the BUN is a 61. The patient's cardiac rhythm is still atrial fibrillation which is controlled for now. Abdominal ileus is still present as the patient's abdomen is slightly distended and patient is having liquid bowel movements. No nausea. No emesis. He is tolerating no direct for now and the patient is currently nothing by mouth. The abdominal film from yesterday showed persistence of ileus and distention of the large bowel. No abdominal pain at this point in time. As of his atrial fibrillation, the patient is on a combination of metoprolol 25 twice a day and amiodarone and the patient is on Eliquis 2.5 mg by mouth twice a day. His rate is currently controlled. His heart rate is in the mid 80s. 01/02/2021 the patient is being seen for a follow-up. In terms of his pulmonary status, the patient remains on oxygen at 2 L per minute nasal cannula. As mentioned earlier, the patient has a Covid 19 related pneumonia and the patient remains on Decadron 6 mg by mouth daily. In terms of his inflammatory markers, the levels are still pending for now and they have been ordered. Meanwhile, the patient has positive blood culture with MRSA. There are at least 3 the positive blood cultures of last dose being on 12/31/2020 and the patient remains on vancomycin. The patient is also on empiric antibiotic coverage with IV Zosyn. Follow calcitonin level has been elevated at 23 consistent with underlying sep sis with staph aureus. The vancomycin trough was 19.7 from this morning. Vancomycin dosing adjustments is being done by pharmacy. White cell count 7.6. D-dimer is at 1.7. Creatinine is improving started around 2.1. The chest x-ray from today is showing cardiomegaly with stable bilateral pulmonary infiltrates and I will say they perihilar infiltrates have improved compared to earlier chest x-rays. In terms of his ileus, the patient is tolerating full liquid diet and he is requesting for more fluids. The patient remains in atrial fibrillation. He has cardiomyopathy with an ejection fraction of 20-25%. His rate is controlled for now with a combination of metoprolol 25 mg by mouth twice a day and amiodarone 400 mg by mouth twice a day and he is also on long-term anticoagulation with Eliquis 2.5 mg by mouth twice a day. Function continues to improve. Neck fluid balance over the past 24 hours is negative for 16 mL. He is on no diuretics for now and the Lasix and placed on hold bases underlying renal failure. Objective - Vital Signs Vital signs: Vital Signs Temp 98 F 01/02/21 00:00 Pulse 82 01/02/21 07:00 Resp 19 01/02/21 07:00 BP 125/78 01/02/21 07:00 Pulse Ox 93 L 01/02/21 07:00 Intake & Output 01/01/21 01/02/21 01/02/21 18:59 06:59 18:59 Intake Total 1400 660 10 Output Total 600 451 0 Balance 800 209 10 Weight 95.7 kg Intake: IV 120 120 10 Normal saline 120 120 10 Intake, IV Titration 200 Amount Piperacillin-Tazobactam 3 200 .375 gm In Sodium Chloride 0.9% 100 ml @ 25 mls/hr IVPB Q8H [facility] Rx#: [id number] Oral 1080 540 Output: Urine 600 450 0 Stool 1 Other: Voiding Method Urinal Urinal # Voids 1 0 0 # Bowel Movements 1 1 - Exam General: ill appearing, mild distress, appears at stated age, currently on 2 L of oxygen by nasal cannula Derm: warm, dry, multiple areas of ecchymosis Head: Head exam was generally normal. There was no scleral icterus or corneal arcus. Mucous membranes were moist. Eyes: EOMI, no lid lag, anicteric sclera Mouth: no lip lesion, mucus membranes dry Cardiovascular: The patient is currently in an atrial fibrillation with S1S2 irreg wth grade 3 ejection murmur Lungs: High pitched wheeze bilateral, no rhonchi, no rales , patient is also having tach is midline bases bilaterally. Abdominal: soft, + high pitched bowel sounds, nontender to palpation, no guarding, no appreciable organomegaly Ext: no gross muscle atrophy, 2+ edema b/l LE, no contractures Neuro: Neurologically, the patient is awake and alert and the patient does not have any focal neurological deficit. Cranial nerves are essentially intact. Psych: fatigued but awakes to speak, oriented, appropriate affect - Labs CBC & Chem 7: 01/02/21 03:18 01/02/21 03:18 Labs: Abnormal Lab Results - Last 24 Hours (Table) 12/31/20 01/01/21 01/01/21 Range/Units 09:28 03:07 03:07 RBC (4.30-5.90) m/uL Hgb (13.0-17.5) gm/dL Hct (39.0-53.0) % RDW (11.5-15.5) % Plt Count (150-450) k/uL Lymphocytes # (1.0-4.8) k/uL D-Dimer (<0.60) mg/L FEU Sodium (137-145) mmol/L Potassium (3.5-5.1) mmol/L Carbon Dioxide (22-30) mmol/L BUN (9-20) mg/dL Creatinine (0.66-1.25) mg/dL Glucose (74-99) mg/dL POC Glucose (mg/dL) (75-99) mg/dL Calcium (8.4-10.2) mg/dL Ferritin 344.6 H (22.0-322.0) ng/mL Total Protein (6.3-8.2) g/dL Albumin (3.5-5.0) g/dL CA 125 Antigen (0.0-30.1) U/mL Procalcitonin 0.16 H 23.74 H (0.02-0.09) ng/mL 01/01/21 01/01/21 01/01/21 Range/Units 08:06 11:19 16:36 RBC (4.30-5.90) m/uL Hgb (13.0-17.5) gm/dL Hct (39.0-53.0) % RDW (11.5-15.5) % Plt Count (150-450) k/uL Lymphocytes # (1.0-4.8) k/uL D-Dimer (<0.60) mg/L FEU Sodium (137-145) mmol/L Potassium (3.5-5.1) mmol/L Carbon Dioxide (22-30) mmol/L BUN (9-20) mg/dL Creatinine (0.66-1.25) mg/dL Glucose (74-99) mg/dL POC Glucose (mg/dL) 157 H 146 H (75-99) mg/dL Calcium (8.4-10.2) mg/dL Ferritin (22.0-322.0) ng/mL Total Protein (6.3-8.2) g/dL Albumin (3.5-5.0) g/dL CA 125 Antigen 69.5 H (0.0-30.1) U/mL Procalcitonin (0.02-0.09) ng/mL 01/01/21 01/02/21 01/02/21 Range/Units 20:37 03:18 03:18 RBC 3.71 L (4.30-5.90) m/uL Hgb 10.3 L (13.0-17.5) gm/dL Hct 31.6 L (39.0-53.0) % RDW 16.3 H (11.5-15.5) % Plt Count 141 L (150-450) k/uL Lymphocytes # 0.2 L (1.0-4.8) k/uL D-Dimer 1.74 H (<0.60) mg/L FEU Sodium (137-145) mmol/L Potassium (3.5-5.1) mmol/L Carbon Dioxide (22-30) mmol/L BUN (9-20) mg/dL Creatinine (0.66-1.25) mg/dL Glucose (74-99) mg/dL POC Glucose (mg/dL) 217 H (75-99) mg/dL Calcium (8.4-10.2) mg/dL Ferritin (22.0-322.0) ng/mL Total Protein (6.3-8.2) g/dL Albumin (3.5-5.0) g/dL CA 125 Antigen (0.0-30.1) U/mL Procalcitonin (0.02-0.09) ng/mL 01/02/21 01/02/21 Range/Units 03:18 06:28 RBC (4.30-5.90) m/uL Hgb (13.0-17.5) gm/dL Hct (39.0-53.0) % RDW (11.5-15.5) % Plt Count (150-450) k/uL Lymphocytes # (1.0-4.8) k/uL D-Dimer (<0.60) mg/L FEU Sodium 134 L (137-145) mmol/L Potassium 3.2 L (3.5-5.1) mmol/L Carbon Dioxide 19 L (22-30) mmol/L BUN 63 H (9-20) mg/dL Creatinine 2.16 H (0.66-1.25) mg/dL Glucose 152 H (74-99) mg/dL POC Glucose (mg/dL) 174 H (75-99) mg/dL Calcium 7.9 L (8.4-10.2) mg/dL Ferritin (22.0-322.0) ng/mL Total Protein 5.3 L (6.3-8.2) g/dL Albumin 2.8 L (3.5-5.0) g/dL CA 125 Antigen (0.0-30.1) U/mL Procalcitonin (0.02-0.09) ng/mL Microbiology - Last 24 Hours (Table) 12/31/20 07:30 Blood Culture Gram Stain - Preliminary Blood Blood Culture - Preliminary Presumptive MRSA 12/31/20 07:47 Blood Culture Gram Stain - Preliminary Blood Blood Culture - Preliminary Presumptive MRSA 12/30/20 00:58 Blood Culture Gram Stain - Final Blood Blood Culture - Final Methicillin resist S. aureus 12/31/20 07:30 Blood Culture - Final Blood Assessment and Plan Plan: 1 acute hypoxic respiratory failure, currently on 2 L of oxygen by nasal cannula, and the respiratory failure is essentially due to combination of CHF exacerbation and covid 19 related pneumonia, currently the patient is on Decadron. The chest x-ray stable with diffuse but the pulmonary infiltrates with probably some improvement resident ongoing improvement in the chest x-ray findings and the patient's vaccinations also improved and currently is down to 2 L and he remains on Decadron. Diuretics have been discontinued as the patient developed an acute kidney injury in the renal function continues to improve the creatinine is down to 2.1. 2 acute covid 19 related pneumonia currently on Decadron and this to a c ombination of vitamin C, zinc and vitamin D. Superimposed pneumonia is likely the patient had an elevated pro-calcitonin level and the patient is currently on Zosyn and vancomycin. Sputum has not resulted yet. Meanwhile the patient had MRSA in his blood, source is not clear, could be pneumonia. 3 CHF with impaired left ventricular function and systolic heart failure with an ejection fraction of 20-25%. The patient was taken off diuretics due to an acute kidney injury. The patient was also off losartan and off dobutamine. 4 acute kidney injury, with interval worsening of the renal function and creatinine is up to 2.1 5 large bowel ileus, please refer to the most recent CAT scan of the abdomen and the patient was given an enema with adequate bowel movements. General surgeries on the case 6 coronary artery disease, post non-STEMI, post cardiac catheterization with a patent GAYLE to LAD and patent previous stent inserted stents 7 new-onset atrial fibrillation, rate controlled on amiodarone and metoprolol and the patient is on long-term articulation with Eliquis 8 iron deficiency anemia 9. Diabetes mellitus type 2, currently off metformin due to acute kidney injury 10 hypertension 11 hyperlipidemia 12 thrombocytopenia, recovered 13 MRSA in the blood, exact source is not clear. Rule out MRSA sepsis/bacteremia. Repeat blood cultures are being sent. Continue vancomycin for now. She is also on empiric antibiotic coverage with Zosyn. Plan X-ray findings are stable and improving and the patient is down to 2 L of oxygen by nasal cannula history keep Lasix hold Continue metoprolol, amiodarone and Eliquis for long-term anticoagulation vancomycin and continue the Zosyn him a and may need another set of blood cultures to reevaluate the presence of MRSA. The patient has elevated pro- calcitonin level. The patient is currently on vancomycin. Vancomycin trough was 19 and pharmacy is adjusting the dose. Repeat blood cultures Wean down the FiO2 as the patient is currently on 2 L by nasal cannula The patient is having liquidy bowel movements advance diet if this is okay with general surgery Eliquis down to 2.5 mg by mouth twice a day A given some applesauce or soft diet at a later stage once cleared by general surgery. We'll continue to follow
--- NOTE | 2021-01-02 10:15 | XR ---
EXAMINATION TYPE: XR chest 1V portable DATE OF EXAM: 01/02/2021 COMPARISON: 01/01/2021 INDICATION: Shortness of breath TECHNIQUE: Single frontal view of the chest is obtained. FINDINGS: The heart size is upper limits of normal. The pulmonary vasculature is normal. Some mild left upper lobe infiltrate may be present. Right lower lobe infiltrate has improved with mi ld residual. IMPRESSION: 1. Mild bilateral scattered infiltrates improving from comparison. Correlate for atypical pneumonia
--- NOTE | 2021-01-02 10:43 | PN ---
PROGRESS NOTE The patient is being followed for acute kidney injury. His renal function has been improving. Case is discussed with nursing staff. NG tube is out. Patient is maintained on liquid diet. He has had good urine output. A 24 hour output documented at about 1051 mL. PHYSICAL EXAMINATION: On examination today, blood pressure was 115/86, heart rate of 84 per minute. Patient is awake, comfortable, not in any acute distress. [employer] exam grossly intact. He continues to have edema in the lower extremities. LABS: Labs show sodium 134, potassium 3.2, chloride 106, BUN 63, creatinine 2.16, hemoglobin 10.3 g/dL. ASSESSMENT: 1. Acute kidney injury, acute tubular necrosis, currently improving. Nonoliguric. The patient was being diuresed. Lasix was held and restarted yesterday. No significant change in his respiratory status. 2. Ileus, status post removal of NG tube, started on liquid diet. 3. Hypokalemia, currently being replaced. 4. COVID-19 pneumonia, maintained on steroids. 5. Cardiomyopathy, ejection fraction of 20%. 6. Chronic kidney disease stage 3. Baseline creatinine about 1.3 mg/dL. PLAN: Replace potassium. Continue to encourage increased oral intake. MMODL / IJN: [id number] / MIRTA
--- NOTE | 2021-01-02 11:03 | P.PN ---
Subjective Progress Note Date: 01/02/21 Patient is doing fairly well today. He denies any nausea or vomiting. No abdominal pain. He continues to have watery stool. There is no acute events overnight reported by nursing staff. Objective - Vital Signs Vital signs: Vital Signs Temp 97.5 F L 01/02/21 09:00 Pulse 84 01/02/21 10:00 Resp 21 01/02/21 10:00 BP 115/74 01/02/21 10:00 Pulse Ox 95 01/02/21 09:00 Intake & Output 01/01/21 01/02/21 01/02/21 18:59 06:59 18:59 Intake Total 1400 660 500 Output Total 600 451 300 Balance 800 209 200 Weight 95.7 kg Intake: IV 120 120 40 Normal saline 120 120 40 Intake, IV Titration 200 100 Amount Piperacillin-Tazobactam 3 200 100 .375 gm In Sodium Chloride 0.9% 100 ml @ 25 mls/hr IVPB Q8H [facility] Rx#: [id number] Oral 1080 540 360 Output: Urine 600 450 300 Stool 1 Other: Voiding Method Urinal Urinal Urinal # Voids 1 0 0 # Bowel Movements 1 1 1 - Exam General: The patient is awake and alert, in no distress Eye: there is normal conjunctiva bilaterally. Neck: The neck is supple, there is no JVD. Cardiovascular: Normal S1-S2, no S3-S4, no murmurs. Respiratory: Lungs clear to auscultation bilaterally Gastrointestinal: Abdomen is soft, nontender Musculoskeletal: There is +3 edema up to the midshin Neurological:. Speech is normal. Skin: Skin is warm and dry - Labs CBC & Chem 7: 01/02/21 03:18 01/02/21 03:18 Labs: Abnormal Lab Results - Last 24 Hours (Table) 12/31/20 01/01/21 01/01/21 Range/Units 09:28 03:07 08:06 RBC (4.30-5.90) m/uL Hgb (13.0-17.5) gm/dL Hct (39.0-53.0) % RDW (11.5-15.5) % Plt Count (150-450) k/uL Lymphocytes # (1.0-4.8) k/uL D-Dimer (<0.60) mg/L FEU Sodium (137-145) mmol/L Potassium (3.5-5.1) mmol/L Carbon Dioxide (22-30) mmol/L BUN (9-20) mg/dL Creatinine (0.66-1.25) mg/dL Glucose (74-99) mg/dL POC Glucose (mg/dL) (75-99) mg/dL Calcium (8.4-10.2) mg/dL Total Protein (6.3-8.2) g/dL Albumin (3.5-5.0) g/dL CA 125 Antigen 69.5 H (0.0-30.1) U/mL Procalcitonin 0.16 H 23.74 H (0.02-0.09) ng/mL 01/01/21 01/01/21 01/01/21 Range/Units 11:19 16:36 20:37 RBC (4.30-5.90) m/uL Hgb (13.0-17.5) gm/dL Hct (39.0-53.0) % RDW (11.5-15.5) % Plt Count (150-450) k/uL Lymphocytes # (1.0-4.8) k/uL D-Dimer (<0.60) mg/L FEU Sodium (137-145) mmol/L Potassium (3.5-5.1) mmol/L Carbon Dioxide (22-30) mmol/L BUN (9-20) mg/dL Creatinine (0.66-1.25) mg/dL Glucose (74-99) mg/dL POC Glucose (mg/dL) 157 H 146 H 217 H (75-99) mg/dL Calcium (8.4-10.2) mg/dL Total Protein (6.3-8.2) g/dL Albumin (3.5-5.0) g/dL CA 125 Antigen (0.0-30.1) U/mL Procalcitonin (0.02-0.09) ng/mL 01/02/21 01/02/21 01/02/21 Range/Units 03:18 03:18 03:18 RBC 3.71 L (4.30-5.90) m/uL Hgb 10.3 L (13.0-17.5) gm/dL Hct 31.6 L (39.0-53.0) % RDW 16.3 H (11.5-15.5) % Plt Count 141 L (150-450) k/uL Lymphocytes # 0.2 L (1.0-4.8) k/uL D-Dimer 1.74 H (<0.60) mg/L FEU Sodium 134 L (137-145) mmol/L Potassium 3.2 L (3.5-5.1) mmol/L Carbon Dioxide 19 L (22-30) mmol/L BUN 63 H (9-20) mg/dL Creatinine 2.16 H (0.66-1.25) mg/dL Glucose 152 H (74-99) mg/dL POC Glucose (mg/dL) (75-99) mg/dL Calcium 7.9 L (8.4-10.2) mg/dL Total Protein 5.3 L (6.3-8.2) g/dL Albumin 2.8 L (3.5-5.0) g/dL CA 125 Antigen (0.0-30.1) U/mL Procalcitonin (0.02-0.09) ng/mL 01/02/21 Range/Units 06:28 RBC (4.30-5.90) m/uL Hgb (13.0-17.5) gm/dL Hct (39.0-53.0) % RDW (11.5-15.5) % Plt Count (150-450) k/uL Lymphocytes # (1.0-4.8) k/uL D-Dimer (<0.60) mg/L FEU Sodium (137-145) mmol/L Potassium (3.5-5.1) mmol/L Carbon Dioxide (22-30) mmol/L BUN (9-20) mg/dL Creatinine (0.66-1.25) mg/dL Glucose (74-99) mg/dL POC Glucose (mg/dL) 174 H (75-99) mg/dL Calcium (8.4-10.2) mg/dL Total Protein (6.3-8.2) g/dL Albumin (3.5-5.0) g/dL CA 125 Antigen (0.0-30.1) U/mL Procalcitonin (0.02-0.09) ng/mL Microbiology - Last 24 Hours (Table) 03/23/21 08:06 Blood Culture Gram Stain - Preliminary Blood 01/01/21 08:06 Blood Culture - Final Blood 12/31/20 07:30 Blood Culture Gram Stain - Preliminary Blood Blood Culture - Preliminary Presumptive MRSA 12/31/20 07:47 Blood Culture Gram Stain - Preliminary Blood Blood Culture - Preliminary Presumptive MRSA 12/30/20 00:58 Blood Culture Gram Stain - Final Blood Blood Culture - Final Methicillin resist S. aureus Assessment and Plan Assessment: Patient is a 70-year-old male with a past medical history of coronary artery disease with history of CABG in 1999, diabetes mellitus type 2, hypertension, and dyslipidemia who presented to the emergency room with shortness of breath. He was subsequently found to have an acute exacerbation of systolic congestive heart failure. He was tachypneic and hypoxic on presentation. He was started on IV heparin due to an elevated troponin. He was started on Lasix and admitted. Cardiology was consulted who agreed with continuing Lasix and IV heparin. He had some optimal diuresis and therefore his Lasix was increased to 80 mg every 8 hours. Due to his low ejection fraction of 20-25% which was newly discovered plan was for cardiac catheterization, this was completed on 12/23 his stent were found to be patent LAD was widely open, with no additional intervention required. He was noted to have worsening renal function and his lisinopril was discontinued. He was transitioned off of heparin drip and onto Eliquis. He was also started on dobutamine. He did go into A. fib and was s tarted on IV amiodarone and then transitioned to oral amiodarone. He was noted to have worsening renal function was seen by nephrology on 12/23. They agreed with continuing dobutamine drip and maintaining a systolic blood pressure greater than 110. On the evening of 12/23 patient seen in follow going to the bathroom and was found to be unresponsive with possible loss of pulses. CPR was initiated and after 1 round of CPR ROSC was noted, concern for possible vasovagal episode. He was awake and alert and did not require intubation. He was transferred to the ICU in critical care was consulted. There was some concern of possible seizure activity versus true cardiac arrest. Head CT was completed which showed no acute process, EEG was normal. His transitioned off of dobutamine on 12/24. He developed abdominal distension, nausea, and abdominal pain on 12/[address] demonstrated large bowel ileus. He did have an enema which resulted in liquid bowel movement and he had one large formed BM the morning of 12/26, the rest were liquid. His renal function was slowly improving and he was kept on lasix. He started having multiple liquid bowel movements. He continued to have some liquid bowel movements but was tolerating a diet. Overnight on 12/29 the patient started spiking fevers at approximately 8 PM. He experienced respiratory distress and was noted to be hypoxemic. CXR demonstrated patchy perihilar infiltrates and COVID testing came back positive. He required BiPap for O2 support he was transferred to the ICU. Pulmonary was reconsulted. He was noted to have high procalcitonin and was started on Zosyn. He then became nauseated and surgery made him NPO and ordered dulcolax. + blood culture and possible MRSA on 12/30 started on vanco. Covid-19 pneumonitis with acute hypoxic respiratory failure - Pulm recs - Decadron day #4 - Follow inflammatory labs - vit C, zinc, vit D - possible bacterial pneumonia with elevated procalcitonin, continue zosyn day #4 MRSA bacteremia -Persistent with blood culture positive on 12/30 and 12/31 -Repeat blood culture 01/01 pending - continue vanco - Exact source unclear. I consulted infectious disease for further evaluation Acute exacerbation of systolic congestive heart failure with ejection fraction 20-25% -Cardiology recommendations appreciated -Strict I's and O's, daily weights -Lopressor, losartan on hold due to LULÚ -Off dobutamine -I would continue IV Lasix 40 mg daily LULÚ, worsening: cardiorenal with component of contrast induced nephropathy, metabolic acidosis - nephrology recs - hold losartan -Off fluids -On oral bicarb large bowel ileus - Improving clinically. Seen and evaluated by general surgery. Start liquid diet New-onset Paroxysmal A. fib -Started on IV amiodarone and then transitioned to oral amiodarone -Eliquis, renal dose adjusted. Non-STEMI with history of coronary artery disease and CABG -Cath with patent GAYLE to LAD and prior stents, no intervention needed -Continue with Plavix, Lipitor, Imdur, Lopressor Iron deficiency anemia -Follow CBC -No indication for transfusion at this point in time. -Recommend colonoscopy as outpatient in light of ileus, frequent use of imodium at home, and iron deficiency Diabetes mellitus type 2 - off metformin - SSI - follow BS - A1C 6 Hypertension - controlled - Continue with metoprolol - follow BP Dyslipidemia - Statin Hypomagnesemia, resolved thrombocytopenia, resolved Cardiac event possible syncope vs cardiac arrest Hypokalemia, resolved Updated [id number] Tara over the phone on possible bacterial infection and on abx. DVT prophylaxis: Nildaqunayely Discussed with: patient, nursing Anticipated discharge:undetermined Anticipated discharge place: undetermined A total of 35 minutes was spent on the care of this complex patient more than 50% of the time was spent in counseling and care coordination.
--- NOTE | 2021-01-02 11:08 | P.PN ---
Subjective Progress Note Date: 01/02/21 CHIEF COMPLAINT: Colonic distention HISTORY OF PRESENT ILLNESS: The patient is a 70 year old male admitted for acute on chronic congestive heart failure. He has had cardiopulmonary resuscitation events at least twice. He was recently diagnosed coronavirus positive. In the past week he has progressive colonic distention initially being treated for ileus however further discussion with the patient confirms no recent colonoscopy within the past 5-[address] of the abdomen and pelvis reviewed with questionable neoplasm of the sigmoid colon. Tumor markers were obtained and elevated for CA-125. He is tolerating liquid diet. Patient is in the ICU maintaining adequate oxygen saturation on 2 L nasal cannula. Denies abdominal pain. He reports some passage of flatus. REVIEW OF ORGAN SYSTEMS: No fevers or chills. Has intermittent dyspnea. No blood in stools PHYSICAL EXAM: VITALS: Reviewed CONSTITUTIONAL: Well developed and in no acute distress. EYES: Conjuctivae without sclera icterus. Extraocular movements grossly intact. HEAD, EARS, NOSE, THROAT: Moist buccal mucosa. Head is atraumatic, normocephalic. Hears conversational speech. No nasal drainage. Wears glasses. NECK: No thyroidomegaly. RESPIRATORY: Non-labored respirations and equal bilateral excursions. CARDIOVASCULAR: Regular rate and rhythm. ABDOMEN: Persistent distention of the abdomen, tympanic, nontender. No p eritonitis. MUSCULOSKELETAL: No clubbing. No cyanosis. SKIN: Well perfused with good skin turgor. NEUROLOGIC: Cranial nerves II through XII grossly intact. Sensation upper and extremities intact. No focal or lateralizing signs. PSYCH: Appropriate affect. Alert and oriented to person, place and time. Displays appropriate insight. CLINCAL LABS: Reviewed. WBC normal 7.6. Potassium of 3.2 with hypokalemia. Creatinine improving from 2.4-2.16. STUDIES: Abdominal x-ray independently reviewed with transverse colon and ascending colon dilated over 7 cm. ASSESSMENT: 1. Abdominal distention with large bowel dilation, persistent 2. Coronary artery disease with history of stent 3. Acute on chronic congestive heart failure 4. History of recent cardiac event requiring cardiopulmonary resuscitation 5. Diabetes type 2, [id number] 6. Hypokalemia 7. Acute on chronic renal injury 8. Anemia 9. Leukopenia, improved. PLAN: 1. Recommend barium enema to elucidate sigmoid stricture/neoplasm. 2. Diet held pending barium enema 3. Correction of persistent hypokalemia including check of magnesium level for medical refractory hypokalemia Objective - Vital Signs Vital signs: Vital Signs Temp 97.5 F L 01/02/21 09:00 Pulse 84 01/02/21 10:00 Resp 21 01/02/21 10:00 BP 115/74 01/02/21 10:00 Pulse Ox 95 01/02/21 09:00 Intake & Output 01/01/21 01/02/21 01/02/21 18:59 06:59 18:59 Intake Total 1400 660 500 Output Total 600 451 300 Balance 800 209 200 Weight 95.7 kg Intake: IV 120 120 40 Normal saline 120 120 40 Intake, IV Titration 200 100 Amount Piperacillin-Tazobactam 3 200 100 .375 gm In Sodium Chloride 0.9% 100 ml @ 25 mls/hr IVPB Q8H [facility] Rx#: [id number] Oral 1080 540 360 Output: Urine 600 450 300 Stool 1 Other: Voiding Method Urinal Urinal Urinal # Voids 1 0 0 # Bowel Movements 1 1 1 - Labs CBC & Chem 7: 01/02/21 03:18 01/02/21 03:18 Labs: Abnormal Lab Results - Last 24 Hours (Table) 12/31/20 01/01/21 01/01/21 Range/Units 09:28 03:07 08:06 RBC (4.30-5.90) m/uL Hgb (13.0-17.5) gm/dL Hct (39.0-53.0) % RDW (11.5-15.5) % Plt Count (150-450) k/uL Lymphocytes # (1.0-4.8) k/uL D-Dimer (<0.60) mg/L FEU Sodium (137-145) mmol/L Potassium (3.5-5.1) mmol/L Carbon Dioxide (22-30) mmol/L BUN (9-20) mg/dL Creatinine (0.66-1.25) mg/dL Glucose (74-99) mg/dL POC Glucose (mg/dL) (75-99) mg/dL Calcium (8.4-10.2) mg/dL Total Protein (6.3-8.2) g/dL Albumin (3.5-5.0) g/dL CA 125 Antigen 69.5 H (0.0-30.1) U/mL Procalcitonin 0.16 H 23.74 H (0.02-0.09) ng/mL 01/01/21 01/01/21 01/01/21 Range/Units 11:19 16:36 20:37 RBC (4.30-5.90) m/uL Hgb (13.0-17.5) gm/dL Hct (39.0-53.0) % RDW (11.5-15.5) % Plt Count (150-450) k/uL Lymphocytes # (1.0-4.8) k/uL D-Dimer (<0.60) mg/L FEU Sodium (137-145) mmol/L Potassium (3.5-5.1) mmol/L Carbon Dioxide (22-30) mmol/L BUN (9-20) mg/dL Creatinine (0.66-1.25) mg/dL Glucose (74-99) mg/dL POC Glucose (mg/dL) 157 H 146 H 217 H (75-99) mg/dL Calcium (8.4-10.2) mg/dL Total Protein (6.3-8.2) g/dL Albumin (3.5-5.0) g/dL CA 125 Antigen (0.0-30.1) U/mL Procalcitonin (0.02-0.09) ng/mL 01/02/21 01/02/21 01/02/21 Range/Units 03:18 03:18 03:18 RBC 3.71 L (4.30-5.90) m/uL Hgb 10.3 L (13.0-17.5) gm/dL Hct 31.6 L (39.0-53.0) % RDW 16.3 H (11.5-15.5) % Plt Count 141 L (150-450) k/uL Lymphocytes # 0.2 L (1.0-4.8) k/uL D-Dimer 1.74 H (<0.60) mg/L FEU Sodium 134 L (137-145) mmol/L Potassium 3.2 L (3.5-5.1) mmol/L Carbon Dioxide 19 L (22-30) mmol/L BUN 63 H (9-20) mg/dL Creatinine 2.16 H (0.66-1.25) mg/dL Glucose 152 H (74-99) mg/dL POC Glucose (mg/dL) (75-99) mg/dL Calcium 7.9 L (8.4-10.2) mg/dL Total Protein 5.3 L (6.3-8.2) g/dL Albumin 2.8 L (3.5-5.0) g/dL CA 125 Antigen (0.0-30.1) U/mL Procalcitonin (0.02-0.09) ng/mL 01/02/21 Range/Units 06:28 RBC (4.30-5.90) m/uL Hgb (13.0-17.5) gm/dL Hct (39.0-53.0) % RDW (11.5-15.5) % Plt Count (150-450) k/uL Lymphocytes # (1.0-4.8) k/uL D-Dimer (<0.60) mg/L FEU Sodium (137-145) mmol/L Potassium (3.5-5.1) mmol/L Carbon Dioxide (22-30) mmol/L BUN (9-20) mg/dL Creatinine (0.66-1.25) mg/dL Glucose (74-99) mg/dL POC Glucose (mg/dL) 174 H (75-99) mg/dL Calcium (8.4-10.2) mg/dL Total Protein (6.3-8.2) g/dL Albumin (3.5-5.0) g/dL CA 125 Antigen (0.0-30.1) U/mL Procalcitonin (0.02-0.09) ng/mL Microbiology - Last 24 Hours (Table) 01/01/21 08:06 Blood Culture Gram Stain - Preliminary Blood 01/01/21 08:06 Blood Culture - Final Blood 12/31/20 07:30 Blood Culture Gram Stain - Preliminary Blood Blood Culture - Preliminary Presumptive MRSA 12/31/20 07:47 Blood Culture Gram Stain - Preliminary Blood Blood Culture - Preliminary Presumptive MRSA 12/30/20 00:58 Blood Culture Gram Stain - Final Blood Blood Culture - Final Methicillin resist S. aureus Assessment and Plan (1) Anemia Current Visit: Yes Status: Acute Code(s): D64.9 - ANEMIA, UNSPECIFIED SNOMED Code(s): 978919418 (2) Leukopenia Current Visit: Yes Status: Acute Code(s): D72.819 - DECREASED WHITE BLOOD CELL COUNT, UNSPECIFIED SNOMED Code(s): 28678600 (3) Acute on chronic renal insufficiency Current Visit: Yes Status: Acute Code(s): N28.9 - DISORDER OF KIDNEY AND URETER, UNSPECIFIED; N18.9 - CHRONIC KIDNEY DISEASE, UNSPECIFIED SNOMED Code(s): 613051903 (4) CHF (congestive heart failure) Current Visit: Yes Status: Acute Code(s): I50.9 - HEART FAILURE, UNSPECIFIED SNOMED Code(s): 25792203 (5) Cardiopulmonary arrest Current Visit: Yes Status: Acute Code(s): I46.9 - CARDIAC ARREST, CAUSE UNSPECIFIED SNOMED Code(s): 099375388 (6) Elevated troponin Current Visit: Yes Status: Acute Code(s): R77.8 - OTHER SPECIFIED ABNORMA LITIES OF PLASMA PROTEINS SNOMED Code(s): 651765744 (7) Hypokalemia Current Visit: Yes Status: Acute Code(s): E87.6 - HYPOKALEMIA SNOMED Code(s): 56416923 (8) Ileus Current Visit: Yes Status: Acute Code(s): K56.7 - ILEUS, UNSPECIFIED SNO MED Code(s): 347093585
[2021-01-02 11:56] LABS: Glucose,Whole Blood 189 mg/dL (75-99)
[2021-01-02] MEDS ORDERED: POLYETHYLENE GLYCOL LYTES SOLN 4,000 ML SOLN.RECON PO ONE (14:07)
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
[2021-01-02 16:53] LABS: Glucose,Whole Blood 143 mg/dL (75-99)
--- NOTE | 2021-01-02 17:08 | P.PN ---
Progress Note - Text Progress Note Date: 01/02/21 Notified by nursing, barium enema unable to obtain per radiology. Will proceed with colonoscopy for direct visualization of sigmoid colon lesion versus ileus
[2021-01-02 20:43] LABS: Glucose,Whole Blood 207 mg/dL (75-99)
[2021-01-02] MEDS: HYDROcodone/APAP 5-325MG 1 EACH TAB PO PRN (20:52)
--- NOTE | 2021-01-02 23:19 | PN ---
PROGRESS NOTE DATE OF SERVICE: 01/02/2021 REASON FOR FOLLOWUP: MRSA bacteremia. INTERVAL HISTORY: The patient is currently afebrile. He is breathing comfortably. Denies having any chest pain. He did have shortness of breath and cough, bringing up some yellow sputum. No nausea, no vomiting. No abdominal pain or diarrhea. PHYSICAL EXAMINATION: Blood pressure 149/89, pulse of 79, temperature 98. He is 97% on 2 L nasal cannula. General description is an elderly male lying in bed in no distress. RESPIRATORY SYSTEM: Labored breathing with decreased breath sounds at the base. No wheeze. HEART: S1, S2. Regular rate and rhythm. ABDOMEN: Soft. No tenderness. EXTREMITIES: No edema of the feet. LABS: Hemoglobin is 10.3, white count 7.6, BUN of 63, creatinine is 2.16. Vancomycin random is 19.7. Blood culture repeat positive as well. DIAGNOSTIC IMPRESSION AND PLAN: Patient with MRSA bacteremia, concern for possible pneumonia; has no other obvious focus. Patient is covered with vancomycin; to continue. Daily blood cultures to document clearance of his bacteremia. Zosyn discontinued. MMODL / IJN: [id number] /
[2021-01-03 06:09] LABS: Anisocytosis Slight; Basophils % (A) 0 %; Eosinophils % (A) 0 %; HCT 33.8 % (39.0-53.0); HGB 10.7 gm/dL (13.0-17.5); Hypochromasia Slight; Lymphocytes # (A) 0.2 k/uL (1.0-4.8); Lymphocytes % (A) 3 %; MCH 27.1 pg (25.0-35.0); MCHC 31.8 g/dL (31.0-37.0); MCV 85.1 fL (80.0-100.0); Mean Platelet Volume 8.3; Monocytes # (A) 0.4 k/uL (0-1.0); Monocytes % (A) 5 %; Neutrophils # (A) 6.7 k/uL (1.3-7.7); Neutrophils % (A) 91 %; Platelet Count 165 k/uL (150-450); RBC 3.97 m/uL (4.30-5.90); RDW 16.4 % (11.5-15.5); WBC 7.3 k/uL (3.8-10.6)
[2021-01-03 06:22] LABS: C Reactive Protein 53.4 mg/L (<10.0); Calcium 8.1 mg/dL (8.4-10.2); Potassium 2.8 mmol/L (3.5-5.1)
[2021-01-03 06:25] LABS: Vancomycin,Random 12.8 ug/mL
[2021-01-03 06:34] LABS: Glucose,Whole Blood 141 mg/dL (75-99)
[2021-01-03] MEDS: INSULIN ASPART (NovoLOG) 100 UNIT/ML VIAL SQ SCH ×4 (06:51→20:09)
[2021-01-03] MEDS: POTASSIUM CHLORIDE 10 MEQ in WATER FOR INJECTION 1 100ML.BAG IVPB SCH ×6 (06:52→15:26)
--- NOTE | 2021-01-03 07:21 | XR ---
EXAMINATION TYPE: XR chest 1V portable DATE OF EXAM: 01/03/2021 HISTORY: Shortness of breath. COMPARISON: 01/02/2021 TECHNIQUE: Single view of the chest is submitted. FINDINGS: Demonstrated are scattered senescent parenchymal change. There is persistent scattered patchy infiltrates seen without significant interval change appreciated . The heart is stable. Hilar and mediastinal structures are within normal limits. Degenerative changes are seen of the dorsal spine. IMPRESSION: 1. There is persistent scattered patchy infiltrates seen without significant interval change appreci ated.
--- NOTE | 2021-01-03 07:51 | P.PN ---
Subjective Progress Note Date: 01/03/21 12/31/2020, patient is being seen in follow-up in the intensive care unit. The patient the patient is an acute hypoxic respiratory failure due to a combination of the congestion heart failure and coronavirus/Covid 19 related pneumonia. Note that the patient has CHF on the patient also has impaired left ventricular function with an ejection fraction of 20-25% and the patient is post cardiac catheterization and coronary stent placed earlier was noted to be normal and patent and no intervention was performed. The patient also is post brief cardiac arrest with PEA requiring CPR and return of spontaneous circulation occurred on 12/23/2020. Note that the patient's computed tomography scan of the head that was done showed no abnormalities an EEG was also normal. During the course of her treatment here in the hospital, the patient also developed an ileus with secondary abdominal distention and nausea and emesis and the CAT scan of the abdomen that was done on 12/25/2020 showed large bowel ileus. The patient has was given an enema which resulted in to a liquid bowel movement and subsequently the patient phoned 1 large bowel movement and the rest was essentially liquids. The patient is known to have CAD, previous bypass surgery, ischemic cardiomyopathy, diabetes mellitus, and she fibrillation which is a new onset in addition to hypertension and hyperlipidemia and history of colonic ileu s. The patient currently is in intensive care unit. The patient is on high flow oxygen 10 L per minute nasal cannula to maintain a saturation above 90%. The was dropped to Chest x-ray showing diffuse breath and pulmonary infiltrates. The patient is being treated with a combination of Decadron which is currently being given at a dose of 6 minute grams IV every 24 hours in addition to routine vitamin supplements for Covid 19 related pneumonia. At the same time, the patient is on broad-spectrum antibiotics with a combination of Zosyn and vancomycin. The antibiotic coverage essentially empiric as the patient has an elevated pro-calcitonin level. She has developed an acute kidney injury in the creatinine is up to 2.1 from a baseline of 1.32 at time of admission. This creatinine rises was from yesterday and based on that the patient on no diuretics. This acute kidney injury was thought to be related to a various factors including diuretics and contrast and heart failure. Based on the evolving acute kidney injury, the patient was taken off the diuretics. The patient is also in atrial fibrillation. The patient on amiodarone. The patient is on long-term and to coagulation with Eliquis. Creatinine today is up to 2.48 and the patient has staph aureus On 01/01/2021, the patient is being seen for a follow-up. The patient is quite comfortable on 3 L by nasal cannula. Repeat chest x-ray was done and it showed no major interval change compared to yesterday. Meanwhile, the patient is still in the intensive care unit and he is being treated for all these comorbidities. In terms of his respiratory status, the patient is still on Decadron 6 mg daily. His inflammatory markers show an LDH of 810 with a CRP of 164 which is down compared to yesterday. He did have staph aureus in the blood which is presumptively staph aureus. Due to concern of his underlying renal fa ilure, I stopped the vancomycin which probably has to be restarted back again. He is also on Zosyn. His pro-calcitonin level was as high as 8.8. A serum vancomycin level is not available at this point in time. Note that the patient also developed an acute kidney injury. Creatinine is at 2.5 which is slightly higher compared to yesterday. Serum bicarb is at 17 and the BUN is a 61. The patient's cardiac rhythm is still atrial fibrillation which is controlled for now. Abdominal ileus is still present as the patient's abdomen is slightly distended and patient is having liquid bowel movements. No nausea. No emesis. He is tolerating no direct for now and the patient is currently nothing by mouth. The abdominal film from yesterday showed persistence of ileus and distention of the large bowel. No abdominal pain at this point in time. As of his atrial fibrillation, the patient is on a combination of metoprolol 25 twice a day and amiodarone and the patient is on Eliquis 2.5 mg by mouth twice a day. His rate is currently controlled. His heart rate is in the mid 80s. 01/02/2021 the patient is being seen for a follow-up. In terms of his pulmonary status, the patient remains on oxygen at 2 L per minute nasal cannula. As mentioned earlier, the patient has a Covid 19 related pneumonia and the patient remains on Decadron 6 mg by mouth daily. In terms of his inflammatory markers, the levels are still pending for now and they have been ordered. Meanwhile, the patient has positive blood culture with MRSA. There are at least 3 the positive blood cultures of last dose being on 12/31/2020 and the patient remains on vancomycin. The patient is also on empiric antibiotic coverage with IV Zosyn. Follow calcitonin level has been elevated at 23 consistent with underlying sep sis with staph aureus. The vancomycin trough was 19.7 from this morning. Vancomycin dosing adjustments is being done by pharmacy. White cell count 7.6. D-dimer is at 1.7. Creatinine is improving started around 2.1. The chest x-ray from today is showing cardiomegaly with stable bilateral pulmonary infiltrates and I will say they perihilar infiltrates have improved compared to earlier chest x-rays. In terms of his ileus, the patient is tolerating full liquid diet and he is requesting for more fluids. The patient remains in atrial fibrillation. He has cardiomyopathy with an ejection fraction of 20-25%. His rate is controlled for now with a combination of metoprolol 25 mg by mouth twice a day and amiodarone 400 mg by mouth twice a day and he is also on long-term anticoagulation with Eliquis 2.5 mg by mouth twice a day. Function continues to improve. Neck fluid balance over the past 24 hours is negative for 16 mL. He is on no diuretics for now and the Lasix and placed on hold bases underlying renal failure. 01/03/2021, the patient is persistently bacteremic with MRSA. I think this is a main ongoing issue along with his Covid 19 related pneumonia, acute kidney injury, and abdominal ileus. The blood culture from yesterday came back again positive for MRSA and the patient remains on vancomycin. I'm not absolutely sure of the source of the infection. Unlikely to be related to MRSA pneumonia. Consider endovascular infection. Echocardiogram that was done during this current admission. Days back showed no evidence of any valvular vegetation. Remains on vancomycin. The chest x-ray f showed no major abnormalities. No evidence of any significant consolidation and the findings are essentially the same compared to yesterday's film. The patient's only on 2 L of oxygen by nasal cannula. Antibiotic coverage with Zosyn and vancomycin. His white cell count today that 7.3 and the patient is afebrile. I'm also noticing improvement in his renal function and the creatinine is down to 1.5 and the diuretics has been on hold. Potassium level needs to be replaced. His LDH level is down to 850 and the CRP is down to 53 and the patient remains on Decadron. The pro- calcitonin level is still quite elevated and the level came up to 23 and this is consistent with his MRSA bacteremia/sepsis. The patient has a vancomycin trough of 12.8. He remains in atrial fibrillation. He has a poor ejection fraction of 20-25%. His fluid balance over the past 24 hours has been in the order of +1.1 L. Abdomen is still distended. The patient is having liquidy stool. The abdomen is tympanic. The plan is to do a colonoscopy. The patient has taken follow-up prep with [facility]. Objective - Vital Signs Vital signs: Vital Signs Temp 96.6 F L 01/03/21 04:00 Pulse 93 01/03/21 07:00 Resp 13 01/03/21 07:00 BP 144/90 01/03/21 07:00 Pulse Ox 91 L 01/03/21 07:00 Intake & Output 01/02/21 01/03/21 01/03/21 18:59 06:59 18:59 Intake Total 880 1660 10 Output Total 800 631 1 Balance 80 1029 9 Weight 96.3 kg Intake: IV 120 120 10 Normal saline 120 120 10 Intake, IV Titration 100 Amount Piperacillin-Tazobactam 3 100 .375 gm In Sodium Chloride 0.9% 100 ml @ 25 mls/hr IVPB [facility] Rx#: [id number] Oral 660 1540 Output: Urine 800 625 0 Stool 6 1 Other: Voiding Method Urinal Urinal # Voids 0 0 0 # Bowel Movements 1 - Exam General: ill appearing, mild distress, appears at stated age, currently on 2 L of oxygen by nasal cannula Derm: warm, dry, multiple areas of ecchymosis Head: Head exam was generally normal. There was no scleral icterus or corneal arcus. Mucous membranes were moist. Eyes: EOMI, no lid lag, anicteric sclera Mouth: no lip lesion, mucus membranes dry Cardiovascular: The patient is currently in an atrial fibrillation with S1S2 irreg wth grade 3 ejection murmur Lungs: High pitched wheeze bilateral, no rhonchi, no rales , patient is also having tach is midline bases bilaterally. Abdominal: soft, + high pitched bowel sounds, nontender to palpation, no guarding, no appreciable organomegaly Ext: no gross muscle atrophy, 2+ edema b/l LE, no contractures Neuro: Neurologically, the patient is awake and alert and the patient does not have any focal neurological deficit. Cranial nerves are essentially intact. Psych: fatigued but awakes to speak, oriented, appropriate affect - Labs CBC & Chem 7: 01/03/21 05:23 01/03/21 05:23 Labs: Abnormal Lab Results - Last 24 Hours (Table) 01/02/21 01/02/21 01/02/21 Range/Units 11:55 16:51 20:42 RBC (4.30-5.90) m/uL Hgb (13.0-17.5) gm/dL Hct (39.0-53.0) % RDW (11.5-15.5) % Lymphocytes # (1.0-4.8) k/uL Sodium (137-145) mmol/L Potassium (3.5-5.1) mmol/L Carbon Dioxide (22-30) mmol/L BUN (9-20) mg/dL Creatinine (0.66-1.25) mg/dL Glucose (74-99) mg/dL POC Glucose (mg/dL) 189 H 143 H 207 H (75-99) mg/dL Calcium (8.4-10.2) mg/dL Lactate Dehydrogenase (313-618) U/L C-Reactive Protein (<10.0) mg/L 01/03/21 01/03/21 01/03/21 Range/Units 05:23 05:23 06:34 RBC 3.97 L (4.30-5.90) m/uL Hgb 10.7 L (13.0-17.5) gm/dL Hct 33.8 L (39.0-53.0) % RDW 16.4 H (11.5-15.5) % Lymphocytes # 0.2 L (1.0-4.8) k/uL Sodium 136 L (137-145) mmol/L Potassium 2.8 L (3.5-5.1) mmol/L Carbon Dioxide 21 L (22-30) mmol/L BUN 53 H (9-20) mg/dL Creatinine 1.57 H (0.66-1.25) mg/dL Glucose 146 H (74-99) mg/dL POC Glucose (mg/dL) 141 H (75-99) mg/dL Calcium 8.1 L (8.4-10.2) mg/dL Lactate Dehydrogenase 850 H (313-618) U/L C-Reactive Protein 53.4 H (<10.0) mg/L Microbiology - Last 24 Hours (Table) 01/02/21 13:30 Sputum Culture - Preliminary Sputum 01/01/21 08:06 Blood Culture Gram Stain - Preliminary Blood Blood Culture - Preliminary Presumptive MRSA 12/31/20 07:30 Blood Culture Gram Stain - Final Blood Blood Culture - Final Methicillin resist S. aureus 12/31/20 07:47 Blood Culture Gram Stain - Final Blood Blood Culture - Final Methicillin resist S. aureus 12/31/20 10:30 Gram Stain - Final Sputum Sputum Culture - Final 01/01/21 08:06 Blood Culture - Final Blood Assessment and Plan Plan: 1 acute hypoxic respiratory failure, currently on 2 L of oxygen by nasal ca nnula, and the respiratory failure is essentially due to combination of CHF exacerbation and covid 19 related pneumonia, currently the patient is on Decadron. 2 acute covid 19 related pneumonia currently on Decadron and this to a combination of vitamin C, zinc and vitamin D. Superimposed pneumonia is likely the patient had an elevated pro-calcitonin level and the patient is currently on vancomycin. Sputum has not resulted yet. Meanwhile the patient had MRSA in his blood, source is not clear, could be pneumonia. 3 CHF with impaired left ventricular function and systolic heart failure with an ejection fraction of 20-25%. The patient was taken off diuretics due to an acute kidney injury. The patient was also off losartan and off dobutamine. 4 acute kidney injury, improving and creatinine is up to 1.5 5 large bowel ileus, please refer to the most recent CAT scan of the abdomen and the patient was given an enema with adequate bowel movements. General surgeries on the case patient is receiving bowel preps and the patient is going to undergo a colonoscopy today. 6 coronary artery disease, post non-STEMI, post cardiac catheterization with a patent GAYLE to LAD and patent previous stent inserted stents 7 new-onset atrial fibrillation, rate controlled on amiodarone and metoprolol and the patient is on long-term articulation with Eliquis 8 iron deficiency anemia 9. Diabetes mellitus type 2, currently off metformin due to acute kidney injury 10 hypertension 11 hyperlipidemia 12 thrombocytopenia, recovered 13 MRSA in the blood, exact source is not clear. Rule out MRSA sepsis/bacteremia. Repeat blood cultures are being sent. Continue vancomycin for now. Plan CX-ray findings are stable and improving and the patient is down to 2 L of oxygen by nasal cannula history keep Lasix hold Continue metoprolol, amiodarone and Eliquis for long-term anticoagulation vancomycin an The patient has elevated pro-calcitonin level. The patient is currently on vancomycin. Vancomycin trough was 12 and pharmacy is adjusting the dose. Repeat another set of blood cultures Repeat blood cultures and the patient has persistent bacteremia with MRSA. Consider a JOHN and this will be discussed with the cardiology team Wean down the FiO2 as the patient is currently on 2 L by nasal cannula The patient is having liquidy bowel movements and the patient is going to underg o a colonoscopy today Eliquis down to 2.5 mg by mouth twice a day We'll continue to follow
[2021-01-03] MEDS: FUROSEMIDE 10 MG/ML 4 ML VIAL IV SCH (08:57)
[2021-01-03] MEDS: allopurinoL 100 MG TAB PO SCH (08:57)
[2021-01-03] MEDS: ISOSORBIDE MONONITRATE ER 30 MG TAB.ER.24H PO SCH (08:57)
[2021-01-03] MEDS: SODIUM BICARBONATE TAB 650 MG TAB PO SCH ×3 (08:57→20:10)
[2021-01-03] MEDS: AMIODARONE 200 MG TAB PO SCH ×2 (08:57→20:00)
[2021-01-03] MEDS: TAMSULOSIN 0.4 MG CAP.ER.24H PO SCH ×2 (08:57→20:00)
[2021-01-03] MEDS: DEXAMETHASONE SOD PHOSPHATE 10 MG/ML 1 ML VIAL IV SCH (08:57)
[2021-01-03] MEDS: CLOPIDOGREL 75 MG TAB PO SCH (08:57)
[2021-01-03] MEDS: CHOLECALCIFEROL 25 MCG (1000 IU) TABLET PO SCH (08:57)
[2021-01-03] MEDS: APIXABAN 2.5 MG TABLET PO SCH (08:57)
[2021-01-03] MEDS: METOPROLOL TARTRATE 25 MG TAB PO SCH ×2 (08:58→20:00)
[2021-01-03] MEDS: ASCORBIC ACID 500 MG TAB PO SCH (08:58)
[2021-01-03] MEDS: VANCOMYCIN 1,500 MG in SODIUM CHLORIDE 0.9% 250 ML IVPB SCH (08:58)
[2021-01-03] MEDS: MIDODRINE 5 MG TAB PO SCH ×2 (08:58→16:34)
[2021-01-03] MEDS: PANTOPRAZOLE 40 MG TABLET PO SCH (08:58)
[2021-01-03] MEDS: ATORVASTATIN 80 MG TAB PO SCH (08:58)
[2021-01-03] MEDS: SIMETHICONE 40 MG/0.6 ML DROPS 2,000 MG/30 ML BOTTLE PO SCH ×4 (09:00→19:59)
[2021-01-03 09:34] LABS: Ferritin 262.7 ng/mL (22.0-322.0)
[2021-01-03] MEDS: bisacodyL 10 MG SUPP RECTAL SCH (09:59)
[2021-01-03 11:28] LABS: Glucose,Whole Blood 179 mg/dL (75-99)
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
[2021-01-03] MEDS: FERROUS SULFATE 325 MG TAB PO SCH (12:06)
[2021-01-03] MEDS: ZINC SULFATE 220 MG CAP PO SCH (12:06)
--- NOTE | 2021-01-03 14:46 | P.PN ---
<Jessica Mitchell - Last Filed: 01/03/21 14:39> Subjective Progress Note Date: 01/03/21 CHIEF COMPLAINT: Colonic distention HISTORY OF PRESENT ILLNESS: The patient is a 70 year old male admitted for acute on chronic congestive heart failure. He has had cardiopulmonary resuscitation events at least twice. He was recently diagnosed coronavirus positive. In the past week he has progressive colonic distention initially being treated for ileus however further discussion with the patient confirms no recent colonoscopy within the past 5-[address] of the abdomen and pelvis reviewed with questionable neoplasm of the sigmoid colon. Tumor markers were obtained and elevated for CA-125. He is tolerating liquid diet. Patient unable to have colonoscopy today due to hypokalemia. Patient's potassium is being corrected and colonoscopy is scheduled for tomorrow. Afebrile. He's on 2 L of oxygen satting at 96%. WBC 7.3 hemoglobin 10.7 platelets 165 sodium 136 potassium 2.8 magnesium 2.0 creatinine 1.57 PHYSICAL EXAM: VITAL SIGNS: Reviewed GENERAL: Well-developed in no acute distress. HEENT: No sclera icterus. Extraocular movements grossly intact. Moist buccal mucosa. Head is atraumatic, normocephalic. Hears conversational speech. No nasal drainage. NECK: Supple without lymphadenopathy. CHEST: Non-labored respirations and equal bilateral excursions. CARDIOVASCULAR: Palpable 2+ radial pulses. ABDOMEN: Soft. Mildly distended. Nontender. MUSCULOSKELETAL: No clubbing or cyanosis. NEUROLOGIC: No focal or lateralizing signs. Cranial nerves II through XII grossly intact. PSYCH: Appropriate affect. Alert and oriented to person, place and time. SKIN: Well perfused. Good skin turgor. ASSESSMENT: 1. Abdominal distention with Large bowel ileus 2. Covid 19 pneumonia 3. Coronary artery disease with history of stent 4. Acute on chronic congestive heart failure 5. History of recent cardiac event requiring cardiopulmonary resuscitation 6. Diabetes type 2, [id number] 7. Hypokalemia 8. Acute on chronic renal injury 9. Anemia 10. Leukopenia improved PLAN: -Patient is scheduled for colonoscopy tomorrow, 01/04/[address] Christiano Victor placed on hold for colonoscopy tomorrow -Continue ICU management -Continue supportive care -Potassium being replaced -We'll check potassium at 6 PM and further correction to be made if potassium remains low Physician Casing Machine Operator note has been reviewed by physician. Signing provider agrees with the documented findings, assessment, and plan of care. Objective - Vital Signs Vital signs: Vital Signs Temp 98.5 F 01/03/21 12:00 Pulse 83 01/03/21 14:00 Resp 33 H 01/03/21 14:00 BP 148/109 01/03/21 14:00 Pulse Ox 96 01/03/21 14:00 Intake & Output 01/02/21 01/03/21 01/03/21 18:59 06:59 18:59 Intake Total 880 1660 1720 Output Total 800 631 977 Balance 80 1029 743 Weight 96.3 kg 96.3 kg Intake: IV 120 120 70 Normal saline 120 120 70 Intake, IV Titration 100 850 Amount Piperacillin-Tazobactam 3 100 .375 gm In Sodium Chloride 0.9% 100 ml @ 25 mls/hr IVPB Q8H [facility] Rx#: [id number] Potassium Chloride 10 meq 600 In Water For Injection 1 100ml.bag @ 100 mls/hr IVPB Q1HR [facility] Rx#: [id number] Vancomycin 1,500 mg In 250 Sodium Chloride 0.9% 250 ml @ 125 mls/hr IVPB Q24HR [facility] Rx#:[id number] Oral 660 1540 800 Output: Urine 800 625 975 Stool 6 2 Other: Voiding Method Urinal Urinal Urinal # Voids 0 0 0 # Bowel Movements 1 - Labs CBC & Chem 7: 01/03/21 05:23 01/03/21 05:23 Labs: Abnormal Lab Results - Last 24 Hours (Table) 01/02/21 01/02/21 01/03/21 Range/Units 16:51 20:42 05:23 RBC (4.30-5.90) m/uL Hgb (13.0-17.5) gm/dL Hct (39.0-53.0) % RDW (11.5-15.5) % Lymphocytes # (1.0-4.8) k/uL Sodium 136 L (137-145) mmol/L Potassium 2.8 L (3.5-5.1) mmol/L Carbon Dioxide 21 L (22-30) mmol/L BUN 53 H (9-20) mg/dL Creatinine 1.57 H (0.66-1.25) mg/dL Glucose 146 H (74-99) mg/dL POC Glucose (mg/dL) 143 H 207 H (75-99) mg/dL Calcium 8.1 L (8.4-10.2) mg/dL Lactate Dehydrogenase 850 H (313-618) U/L C-Reactive Protein 53.4 H (<10.0) mg/L 01/03/21 01/03/21 01/03/21 Range/Units 05:23 06:34 11:26 RBC 3.97 L (4.30-5.90) m/uL Hgb 10.7 L (13.0-17.5) gm/dL Hct 33.8 L (39.0-53.0) % RDW 16.4 H (11.5-15.5) % Lymphocytes # 0.2 L (1.0-4.8) k/uL Sodium (137-145) mmol/L Potassium (3.5-5.1) mmol/L Carbon Dioxide (22-30) mmol/L BUN (9-20) mg/dL Creatinine (0.66-1.25) mg/dL Glucose (74-99) mg/dL POC Glucose (mg/dL) 141 H 179 H (75-99) mg/dL Calcium (8.4-10.2) mg/dL Lactate Dehydrogenase (313-618) U/L C-Reactive Protein (<10.0) mg/L Microbiology - Last 24 Hours (Table) 01/02/21 13:30 Gram Stain - Preliminary Sputum Sputum Culture - Preliminary 01/01/21 08:06 Blood Culture Gram Stain - Preliminary Blood Blood Culture - Preliminary Presumptive MRSA 12/31/20 07:30 Blood Culture Gram Stain - Final Blood Blood Culture - Final Methicillin resist S. aureus 12/31/20 07:47 Blood Culture Gram Stain - Final Blood Blood Culture - Final Methicillin resist S. aureus 12/31/20 10:30 Gram Stain - Final Sputum Sputum Culture - Final <Thuy Alvarado - Last Filed: 01/03/21 19:02> Subjective Patient seen and evaluated. Please see additional documentation below. CHIEF COMPLAINT: Colonic distention HISTORY OF PRESENT ILLNESS: The patient is a 70 year old male with acute on chronic congestive heart failure, chronic anticoagulation, multiple cardiopulmonary arrest, recent diagnosis coronavirus serology who has over 1 week history of persistent colonic distention. Initially ileus was suspected however additional tumor markers were obtained with suspicion of gastrointestinal malignancy. Patient has not had recent colonoscopy. Additi onally computed tomography scan is suspicious of neoplasm along the sigmoid colon. Colonoscopy was deferred due to severe hypokalemia. REVIEW OF ORGAN SYSTEMS: No fevers or chills. He is having bowel movements. No reports of abdominal pain. PHYSICAL EXAM: VITALS: Reviewed CONSTITUTIONAL: Well developed and in no acute distress. EYES: Conjuctivae without sclera icterus. Extraocular movements grossly intact. HEAD, EARS, NOSE, THROAT: Moist buccal mucosa. Head is atraumatic, normocephali c. Hears conversational speech. No nasal drainage. Wears glasses. NECK: No thyroidomegaly. RESPIRATORY: Non-labored respirations and equal bilateral excursions. CARDIOVASCULAR: Iregular rate and rhythm. ABDOMEN: No peritonitis. Mild abdominal distention. MUSCULOSKELETAL: No clubbing. No cyanosis. SKIN: Well perfused with good skin turgor. NEUROLOGIC: Cranial nerves II through XII grossly intact. Sensation upper and extremities intact. No focal or lateralizing signs. PSYCH: Appropriate affect. Alert and oriented to person, place and time. Displays appropriate insight. CLINCAL LABS: Reviewed. WBC normal 7.6. Potassium 2.8 with hypokalemia. Creatinine improving from 2.16 down to 1.57 STUDIES: Chest x-ray in the pelvis reviewed without pulmonary congestion or pleural effusions. ASSESSMENT: 1. Abdominal distention with large bowel dilation, persistent 2. Coronary artery disease with history of stent 3. Acute on chronic congestive heart failure 4. History of recent cardiac event requiring cardiopulmonary resuscitation 5. Diabetes type 2, [id number] 6. Hypokalemia 7. Acute on chronic renal injury 8. Anemia 9. Leukopenia, improved. 10. Coronavirus positive serology PLAN: 1. We'll recheck an correct potassium for greater than 3.5. 2. He is at elevated risk for complications from colonoscopy including bleeding complications and perforation with pre-existing colonic ileus 3. In the interim, may have clear liquid diet. 4. Colonoscopy deferred for tomorrow. Objective - Vital Signs Vital signs: Vital Signs Temp 98.8 F 01/03/21 16:00 Pulse 85 01/03/21 18:00 Resp 21 01/03/21 18:00 BP 161/113 01/03/21 18:00 Pulse Ox 96 01/03/21 18:00 Intake & Output 01/02/21 01/03/21 01/03/21 18:59 06:59 18:59 Intake Total 880 1660 2160 Output Total 038 623 9598 Balance 80 1029 682 Weight 96.3 kg 96.3 kg Intake: IV 120 120 110 Normal saline 120 120 110 Intake, IV Titration 100 850 Amount Piperacillin-Tazobactam 3 100 .375 gm In Sodium Chloride 0.9% 100 ml @ 25 mls/hr IVPB Q8H [facility] Rx#: [id number] Potassium Chloride 10 meq 600 In Water For Injection 1 100ml.bag @ 100 mls/hr IVPB Q1HR [facility] Rx#: [id number] Vancomycin 1,500 mg In 250 Sodium Chloride 0.9% 250 ml @ 125 mls/hr IVPB Q24HR [facility] Rx#:[id number] Oral 660 1540 1200 Output: Urine 530 240 8601 Stool 6 3 Other: Voiding Method Urinal Urinal Urinal # Voids 0 0 0 # Bowel Movements 1 - Labs CBC & Chem 7: 01/03/21 05:23 01/03/21 18:00 Labs: Abnormal Lab Results - Last 24 Hours (Table) 01/02/21 01/03/21 01/03/21 Range/Units 20:42 05:23 05:23 RBC 3.97 L (4.30-5.90) m/uL Hgb 10.7 L (13.0-17.5) gm/dL Hct 33.8 L (39.0-53.0) % RDW 16.4 H (11.5-15.5) % Lymphocytes # 0.2 L (1.0-4.8) k/uL Sodium 136 L (137-145) mmol/L Potassium 2.8 L (3.5-5.1) mmol/L Carbon Dioxide 21 L (22-30) mmol/L BUN 53 H (9-20) mg/dL Creatinine 1.57 H (0.66-1.25) mg/dL Glucose 146 H (74-99) mg/dL POC Glucose (mg/dL) 207 H (75-99) mg/dL Calcium 8.1 L (8.4-10.2) mg/dL Lactate Dehydrogenase 850 H (313-618) U/L C-Reactive Protein 53.4 H (<10.0) mg/L 01/03/21 01/03/21 01/03/21 Range/Units 06:34 11:26 16:37 RBC (4.30-5.90) m/uL Hgb (13.0-17.5) gm/dL Hct (39.0-53.0) % RDW (11.5-15.5) % Lymphocytes # (1.0-4.8) k/uL Sodium (137-145) mmol/L Potassium (3.5-5.1) mmol/L Carbon Dioxide (22-30) mmol/L BUN (9-20) mg/dL Creatinine (0.66-1.25) mg/dL Glucose (74-99) mg/dL POC Glucose (mg/dL) 141 H 179 H 273 H (75-99) mg/dL Calcium (8.4-10.2) mg/dL Lactate Dehydrogenase (313-618) U/L C-Reactive Protein (<10.0) mg/L 01/03/21 Range/Units 18:00 RBC (4.30-5.90) m/uL Hgb (13.0-17.5) gm/dL Hct (39.0-53.0) % RDW (11.5-15.5) % Lymphocytes # (1.0-4.8) k/uL Sodium (137-145) mmol/L Potassium 3.3 L (3.5-5.1) mmol/L Carbon Dioxide (22-30) mmol/L BUN (9-20) mg/dL Creatinine (0.66-1.25) mg/dL Glucose (74-99) mg/dL POC Glucose (mg/dL) (75-99) mg/dL Calcium (8.4-10.2) mg/dL Lactate Dehydrogenase (313-618) U/L C-Reactive Protein (<10.0) mg/L Microbiology - Last 24 Hours (Table) 01/02/21 15:18 Blood Culture Gram Stain - Preliminary Blood 01/02/21 15:18 Blood Culture - Final Blood 01/02/21 13:30 Gram Stain - Preliminary Sputum Sputum Culture - Preliminary 01/01/21 08:06 Blood Culture Gram Stain - Preliminary Blood Blood Culture - Preliminary Presumptive MRSA 12/31/20 07:30 Blood Culture Gram Stain - Final Blood Blood Culture - Final Methicillin resist S. aureus 12/31/20 07:47 Blood Culture Gram Stain - Final Blood Blood Culture - Final Methicillin resist S. aureus Assessment and Plan (1) Anemia Current Visit: Yes Status: Acute Code(s): D64.9 - ANEMIA, UNSPECIFIED S NOMED Code(s): 033533794 (2) Leukopenia Current Visit: Yes Status: Acute Code(s): D72.819 - DECREASED WHITE BLOOD CELL COUNT, UNSPECIFIED SNOMED Code(s): 70832940 (3) Acute on chronic renal insufficiency Current Visit: Yes Status: Acute Code(s): N28.9 - DISORDER OF KIDNEY AND URETER, UNSPECIFIED; N18.9 - CHRONIC KIDNEY DISEASE, UNSPECIFIED SNOMED Cod e(s): 563601056 (4) CHF (congestive heart failure) Current Visit: Yes Status: Acute Code(s): I50.9 - HEART FAILURE, UNSPECIFIED SNOMED Code(s): 44519723 (5) Cardiopulmonary arrest Current Visit: Yes Status: Acute Code(s): I46.9 - CARDIAC ARREST, CAUSE UNSPECIFIED SNOMED Code(s): 140303505 (6) Elevated troponin Current Visit: Yes Status: Acute Code(s): R77.8 - OTHER SPECIFIED ABNORMALITIES OF PLASMA PROTEINS SNOMED Code(s): 710373705 (7) Hypokalemia Current Visit: Yes Status: Acute Code(s): E87.6 - HYPOKALEMIA SNOMED Code(s): 19256091 (8) Ileus Current Visit: Yes Status: Acute Code(s): K56.7 - ILEUS, UNSPECIFIED SNOMED Code(s): 061491701
--- NOTE | 2021-01-03 14:50 | P.PN ---
Subjective Progress Note Date: 01/03/21 Patient is awake and alert. No acute events overnight. He is very frustrated that his colonoscopy was canceled this morning secondary to hypokalemia. Objective - Vital Signs Vital signs: Vital Signs Temp 98.5 F 01/03/21 12:00 Pulse 83 01/03/21 14:00 Resp 33 H 01/03/21 14:00 BP 148/109 01/03/21 14:00 Pulse Ox 96 01/03/21 14:00 Intake & Output 01/02/21 01/03/21 01/03/21 18:59 06:59 18:59 Intake Total 880 1660 1720 Output Total 800 631 977 Balance 80 1029 743 Weight 96.3 kg 96.3 kg Intake: IV 120 120 70 Normal saline 120 120 70 Intake, IV Titration 100 850 Amount Piperacillin-Tazobactam 3 100 .375 gm In Sodium Chloride 0.9% 100 ml @ 25 mls/hr IVPB Q8H [facility] Rx#: [id number] Potassium Chloride 10 meq 600 In Water For Injection 1 100ml.bag @ 100 mls/hr IVPB Q1HR [facility] Rx#: [id number] Vancomycin 1,500 mg In 250 Sodium Chloride 0.9% 250 ml @ 125 mls/hr IVPB Q24HR [facility] Rx#:[id number] Oral 660 1540 800 Output: Urine 800 625 975 Stool 6 2 Other: Voiding Method Urinal Urinal Urinal # Voids 0 0 0 # Bowel Movements 1 - Exam General: The patient is awake and alert, in no distress Eye: there is normal conjunctiva bilaterally. Neck: The neck is supple, there is no JVD. Cardiovascular: Normal S1-S2, no S3-S4, no murmurs. Respiratory: Lungs clear to auscultation bilaterally Gastrointestinal: Abdomen is soft, nontender Musculoskeletal: There is +3 edema up to the midshin Neurological:. Speech is normal. Skin: Skin is warm and dry - Labs CBC & Chem 7: 01/03/21 05:23 01/03/21 05:23 Labs: Abnormal Lab Results - Last 24 Hours (Table) 01/02/21 01/02/21 01/03/21 Range/Units 16:51 20:42 05:23 RBC (4.30-5.90) m/uL Hgb (13.0-17.5) gm/dL Hct (39.0-53.0) % RDW (11.5-15.5) % Lymphocytes # (1.0-4.8) k/uL Sodium 136 L (137-145) mmol/L Potassium 2.8 L (3.5-5.1) mmol/L Carbon Dioxide 21 L (22-30) mmol/L BUN 53 H (9-20) mg/dL Creatinine 1.57 H (0.66-1.25) mg/dL Glucose 146 H (74-99) mg/dL POC Glucose (mg/dL) 143 H 207 H (75-99) mg/dL Calcium 8.1 L (8.4-10.2) mg/dL Lactate Dehydrogenase 850 H (313-618) U/L C-Reactive Protein 53.4 H (<10.0) mg/L 01/03/21 01/03/21 01/03/21 Range/Units 05:23 06:34 11:26 RBC 3.97 L (4.30-5.90) m/uL Hgb 10.7 L (13.0-17.5) gm/dL Hct 33.8 L (39.0-53.0) % RDW 16.4 H (11.5-15.5) % Lymphocytes # 0.2 L (1.0-4.8) k/uL Sodium (137-145) mmol/L Potassium (3.5-5.1) mmol/L Carbon Dioxide (22-30) mmol/L BUN (9-20) mg/dL Creatinine (0.66-1.25) mg/dL Glucose (74-99) mg/dL POC Glucose (mg/dL) 141 H 179 H (75-99) mg/dL Calcium (8.4-10.2) mg/dL Lactate Dehydrogenase (313-618) U/L C-Reactive Protein (<10.0) mg/L Microbiology - Last 24 Hours (Table) 01/02/21 13:30 Gram Stain - Preliminary Sputum Sputum Culture - Preliminary 01/01/21 08:06 Blood Culture Gram Stain - Preliminary Blood Blood Culture - Preliminary Presumptive MRSA 12/31/20 07:30 Blood Culture Gram Stain - Final Blood Blood Culture - Final Methicillin resist S. aureus 12/31/20 07:47 Blood Culture Gram Stain - Final Blood Blood Culture - Final Methicillin resist S. aureus 12/31/20 10:30 Gram Stain - Final Sputum Sputum Culture - Final Assessment and Plan Assessment: Patient is a 70-year-old male with a past medical history of coronary artery disease with history of CABG in 1999, diabetes mellitus type 2, hypertension, and dyslipidemia who presented to the emergency room with shortness of breath. He was subsequently found to have an acute exacerbation of systolic congestive heart failure. He was tachypneic and hypoxic on presentation. He was started on IV heparin due to an elevated troponin. He was started on Lasix and admitted. Cardiology was consulted who agreed with continuing Lasix and IV heparin. He had some optimal diuresis and therefore his Lasix was increased to 80 mg every 8 hours. Due to his low ejection fraction of 20-25% which was newly discovered plan was for cardiac catheterization, this was completed on 12/23 his stent were found to be patent LAD was widely open, with no additional intervention required. He was noted to have worsening renal function and his lisinopril was discontinued. He was transitioned off of heparin drip and onto Eliquis. He was also started on dobutamine. He did go into A. fib and was s tarted on IV amiodarone and then transitioned to oral amiodarone. He was noted to have worsening renal function was seen by nephrology on 12/23. They agreed with continuing dobutamine drip and maintaining a systolic blood pressure greater than 110. On the evening of 12/23 patient seen in follow going to the bathroom and was found to be unresponsive with possible loss of pulses. CPR was initiated and after 1 round of CPR ROSC was noted, concern for possible vasovagal episode. He was awake and alert and did not require intubation. He was transferred to the ICU in critical care was consulted. There was some concern of possible seizure activity versus true cardiac arrest. Head CT was completed which showed no acute process, EEG was normal. His transitioned off of dobutamine on 12/24. He developed abdominal distension, nausea, and abdominal pain on 12/[address] demonstrated large bowel ileus. He did have an enema which resulted in liquid bowel movement and he had one large formed BM the morning of 12/26, the rest were liquid. His renal function was slowly improving and he was kept on lasix. He started having multiple liquid bowel movements. He continued to have some liquid bowel movements but was tolerating a diet. Overnight on 12/29 the patient started spiking fevers at approximately 8 PM. He experienced respiratory distress and was noted to be hypoxemic. CXR demonstrated patchy perihilar infiltrates and COVID testing came back positive. He required BiPap for O2 support he was transferred to the ICU. Pulmonary was reconsulted. He was noted to have high procalcitonin and was started on Zosyn. He then became nauseated and surgery made him NPO and ordered dulcolax. + blood culture and possible MRSA on 12/30 started on vanco. Covid-19 pneumonitis with acute hypoxic respiratory failure - Pulm recs - Decadron day #5 - Follow inflammatory labs - vit C, zinc, vit D - possible bacterial pneumonia with elevated procalcitonin, patient received Zosyn for 4 days and currently on vancomycin day #5 MRSA bacteremia -Persistent with blood culture positive on 12/30, 12/31, and 01/01 -Repeat blood culture 01/02 pending - continue vanco - Exact source unclear possibly underlying pneumonia. I consulted infectious disease for further evaluation -Cardiology consulted for JOHN Acute exacerbation of systolic congestive heart failure with ejection fraction 20-25% -Cardiology recommendations appreciated -Strict I's and O's, daily weights -Lopressor, losartan on hold due to LULÚ -Off dobutamine -I would continue IV Lasix 40 mg daily LULÚ, worsening: cardiorenal with component of contrast induced nephropathy, metabolic acidosis - nephrology recs - hold losartan -Off fluids -On oral bicarb large bowel ileus - Improving clinically. Seen and evaluated by general surgery. Started liquid diet. Plan for colonoscopy in the morning New-onset Paroxysmal A. fib -Started on IV amiodarone and then transitioned to oral amiodarone -Eliquis, renal dose adjusted. Non-STEMI with history of coronary artery disease and CABG -Cath with patent GAYLE to LAD and prior stents, no intervention needed -Continue with Plavix, Lipitor, Imdur, Lopressor Iron deficiency anemia -Follow CBC -No indication for transfusion at this point in time. -Recommend colonoscopy as outpatient in light of ileus, frequent use of imodium at home, and iron deficiency Diabetes mellitus type 2 - off metformin - SSI - follow BS - A1C 6 Hypertension - controlled - Continue with metoprolol - follow BP Dyslipidemia - Statin Hypomagnesemia, resolved thrombocytopenia, resolved Cardiac event possible syncope vs cardiac arrest Hypokalemia, resolved Updated [id number] Tara over the phone on possible bacterial infection and on abx. DVT prophylaxis: Cara Discussed with: patient, nursing Anticipated discharge:undetermined Anticipated discharge place: undetermined A total of 35 minutes was spent on the care of this complex patient more than 50% of the time was spent in counseling and care coordination.
--- NOTE | 2021-01-03 16:12 | PN ---
PROGRESS NOTE Patient is seen for followup for acute kidney injury. Renal function has improved. The patient is maintained on IV Lasix once a day. He was scheduled for colonoscopy which is postponed until tomorrow secondary to hypokalemia. No significant chest pains or shortness of breath. Good urine output. Patient is maintained on IV Lasix once a day. PHYSICAL EXAMINATION: Blood pressure is 124/85, heart rate 77 per minute. He is afebrile. EXAMINATION OF THE HEART: S1, S2. Examination of the lower extremities shows edema 2+ bilaterally. Abdomen is soft, distended, nontender. LABS: Labs show sodium 136, potassium 2.8, BUN 53, serum creatinine 1.57, hemoglobin 10.7 g/dL. ASSESSMENT: 1. Acute kidney injury, acute tubular necrosis, nonoliguric, currently improved. Continue with IV Lasix. The patient does have significant edema. 2. Hypokalemia secondary to diuresis, being replaced. 3. COVID-19 pneumonia, maintained on Decadron. 4. Congestive heart failure acute on top of chronic systolic, ejection fraction of about 20% to 25%, currently off of dobutamine. 5. Atrial fibrillation with controlled ventricular response. 6. Ileus being followed by Surgery. 7. Persistent MRSA bacteremia source is unclear, maintained on vancomycin. PLAN: Continue with IV Lasix. Repeat labs in a.m. Replace potassium and recheck this evening. MMODL / IJN: [id number] /
[2021-01-03 16:39] LABS: Glucose,Whole Blood 273 mg/dL (75-99)
[2021-01-03] MEDS ORDERED: INSULIN ASPART (NovoLOG) 100 UNIT/ML VIAL SQ ONE (16:50)
--- NOTE | 2021-01-03 17:47 | PN ---
PROGRESS NOTE DATE OF SERVICE: 01/03/2021 REASON FOR FOLLOWUP: MRSA bacteremia. INTERVAL HISTORY: The patient is currently afebrile. The patient is breathing slightly comfortably. The patient denies having any chest pain or shortness of breath. He did have a cough. No abdominal pain or diarrhea. PHYSICAL EXAMINATION: Blood pressure 145/83 with a pulse of 80, temperature 98.8. He is 93% on 2 L nasal cannula. General description is an elderly male lying in bed in no distress. RESPIRATORY SYSTEM: Unlabored breathing with decreased breath sounds at the base. No wheeze. HEART: S1, S2. Regular rate and rhythm. ABDOMEN: Soft. No tenderness. LABS: Hemoglobin 10.3, white count 7.3, BUN of 53, creatinine 1.57. Vancomycin trough on the low side. Blood culture obtained is positive. DIAGNOSTIC IMPRESSION AND PLAN: Patient with MRSA bacteremia, persistent; possible for endovascular source plus/minus pneumonia. Patient is covered with vancomycin; dose to be adjusted up to keep the trough around 15. Blood culture to document clearance of bacteremia. Patient will need an echocardiogram currently has been consulted. Patient is covered vancomycin. Daily blood culture to document clearance of bacteremia. Continue with supportive care. MMODL / IJN: [id number] /
[2021-01-03] MEDS: POTASSIUM CHLORIDE ER 20 MEQ TAB.ER PO SCH ×2 (18:44→20:00)
[2021-01-03] MEDS ORDERED: POTASSIUM CHLORIDE ER 20 MEQ TAB.ER PO STA (18:56)
[2021-01-03 19:59] LABS: Glucose,Whole Blood 264 mg/dL (75-99)
[2021-01-03] MEDS: FUROSEMIDE 40 MG TAB PO SCH (20:41)
[2021-01-04 05:53] LABS: Calcium 8.2 mg/dL (8.4-10.2); Potassium 3.4 mmol/L (3.5-5.1)
[2021-01-04 06:17] LABS: Glucose,Whole Blood 119 mg/dL (75-99)
[2021-01-04] MEDS: INSULIN ASPART (NovoLOG) 100 UNIT/ML VIAL SQ SCH ×4 (07:07→20:14)
[2021-01-04] MEDS ORDERED: PROPOFOL 10 MG/ML 20 ML VIAL IV ONE (07:36)
[2021-01-04] MEDS ORDERED: LIDOCAINE 1% INJ 10MG/ML (20 ML MDV) ONE (07:36)
[2021-01-04] MEDS ORDERED: IV FLUID CONTINUATION 500 ML IV ONE (07:42)
--- NOTE | 2021-01-04 08:04 | P.PCN ---
Date of Procedure: 01/04/21 Description of Procedure: PREOPERATIVE DIAGNOSIS: Abnormal computed tomography scan for sigmoid stricture Colonic ileus Congestive heart failure Anasarca Active chronic anticoagulation Elevated tumor markers Coronavirus positive serology Stage I decubiti ulcer, right buttock POSTOPERATIVE DIAGNOSIS: Segmental edema sigmoid colon causing mild large bowel obstruction Colonic ileus Congestive heart failure with anasarca Colon polyp, descending colon Active chronic anticoagulation Elevated tumor markers Coronavirus positive serology Stage I decubiti ulcer, right buttock OPERATION: Colonoscopy to the cecum, ileocecal valve and appendiceal orifice. Colonoscopy decompression for colonic distention SURGEON: Thuy Alvarado MD. ANESTHESIA: MAC. INDICATIONS: The patient is a 70-year-old male who presents colonic distention with abnormal computed tomography scan with focal narrowing of the sigmoid colon including elevated tumor markers. Last colonoscopy was over 5-10 years ago. Lower endoscopy was offered for therapeutic and diagnostic assessment. Benefits and risks were described and informed consent was obtained. DESCRIPTION OF PROCEDURE: The patient had undergone Golytely prep. The patient had been brought into the operating room and laid in the left lateral decubitus position. After adequate intravenous sedation, the rectum was examined with 2% lidocaine jelly. The prostate was mildly enlarged, soft. No external hemorrhoids were encountered. The rectal tone was within normal limits. No lesions were palpated in the rectal vault. An Olympus colonoscope was advanced until the cecum, ileocecal valve and appendiceal orifice were clearly viewed. The prep was fair. No large diverticulosis was encountered. Segmental edema of the sigmoid colon between 20-30 cm was identified causing mild obstruction. No evidence of focal colitis was found. Hyperplastic 4-mm polyp was identified along the descending colon unable to retrieve due to active anticoagulation. Retroflexion of the scope demonstrated grade 2 internal hemorrhoids without active bleeding or inflammation. The colon was desufflated. The patient had tolerated the procedure well. Withdrawal time was over 6 minutes. FINDINGS: Aronchick preparation quality scale 3 (1-5) Internal hemorrhoids, grade 2 No external prolapsed hemorrhoids. No arteriovenous malformations. No adenomatous polyps. Focal segmental edema between 20-30 cm causing functional intermittent large bowel obstruction RECOMMENDATIONS: Lower endoscopy in 5 years, 2025 Recommend treatment of global anasarca with diuretics May start heart healthy diet
--- NOTE | 2021-01-04 08:10 | P.PN ---
Subjective Progress Note Date: 01/04/21 12/31/2020, patient is being seen in follow-up in the intensive care unit. The patient the patient is an acute hypoxic respiratory failure due to a combination of the congestion heart failure and coronavirus/Covid 19 related pneumonia. Note that the patient has CHF on the patient also has impaired left ventricular function with an ejection fraction of 20-25% and the patient is post cardiac catheterization and coronary stent placed earlier was noted to be normal and patent and no intervention was performed. The patient also is post brief cardiac arrest with PEA requiring CPR and return of spontaneous circulation occurred on 12/23/2020. Note that the patient's computed tomography scan of the head that was done showed no abnormalities an EEG was also normal. During the course of her treatment here in the hospital, the patient also developed an ileus with secondary abdominal distention and nausea and emesis and the CAT scan of the abdomen that was done on 12/25/2020 showed large bowel ileus. The patient has was given an enema which resulted in to a liquid bowel movement and subsequently the patient phoned 1 large bowel movement and the rest was essentially liquids. The patient is known to have CAD, previous bypass surgery, ischemic cardiomyopathy, diabetes mellitus, and she fibrillation which is a new onset in addition to hypertension and hyperlipidemia and history of colonic ileu s. The patient currently is in intensive care unit. The patient is on high flow oxygen 10 L per minute nasal cannula to maintain a saturation above 90%. The was dropped to Chest x-ray showing diffuse breath and pulmonary infiltrates. The patient is being treated with a combination of Decadron which is currently being given at a dose of 6 minute grams IV every 24 hours in addition to routine vitamin supplements for Covid 19 related pneumonia. At the same time, the patient is on broad-spectrum antibiotics with a combination of Zosyn and vancomycin. The antibiotic coverage essentially empiric as the patient has an elevated pro-calcitonin level. She has developed an acute kidney injury in the creatinine is up to 2.1 from a baseline of 1.32 at time of admission. This creatinine rises was from yesterday and based on that the patient on no diuretics. This acute kidney injury was thought to be related to a various factors including diuretics and contrast and heart failure. Based on the evolving acute kidney injury, the patient was taken off the diuretics. The patient is also in atrial fibrillation. The patient on amiodarone. The patient is on long-term and to coagulation with Eliquis. Creatinine today is up to 2.48 and the patient has staph aureus On 01/01/2021, the patient is being seen for a follow-up. The patient is quite comfortable on 3 L by nasal cannula. Repeat chest x-ray was done and it showed no major interval change compared to yesterday. Meanwhile, the patient is still in the intensive care unit and he is being treated for all these comorbidities. In terms of his respiratory status, the patient is still on Decadron 6 mg daily. His inflammatory markers show an LDH of 810 with a CRP of 164 which is down compared to yesterday. He did have staph aureus in the blood which is presumptively staph aureus. Due to concern of his underlying renal fa ilure, I stopped the vancomycin which probably has to be restarted back again. He is also on Zosyn. His pro-calcitonin level was as high as 8.8. A serum vancomycin level is not available at this point in time. Note that the patient also developed an acute kidney injury. Creatinine is at 2.5 which is slightly higher compared to yesterday. Serum bicarb is at 17 and the BUN is a 61. The patient's cardiac rhythm is still atrial fibrillation which is controlled for now. Abdominal ileus is still present as the patient's abdomen is slightly distended and patient is having liquid bowel movements. No nausea. No emesis. He is tolerating no direct for now and the patient is currently nothing by mouth. The abdominal film from yesterday showed persistence of ileus and distention of the large bowel. No abdominal pain at this point in time. As of his atrial fibrillation, the patient is on a combination of metoprolol 25 twice a day and amiodarone and the patient is on Eliquis 2.5 mg by mouth twice a day. His rate is currently controlled. His heart rate is in the mid 80s. 01/02/2021 the patient is being seen for a follow-up. In terms of his pulmonary status, the patient remains on oxygen at 2 L per minute nasal cannula. As mentioned earlier, the patient has a Covid 19 related pneumonia and the patient remains on Decadron 6 mg by mouth daily. In terms of his inflammatory markers, the levels are still pending for now and they have been ordered. Meanwhile, the patient has positive blood culture with MRSA. There are at least 3 the positive blood cultures of last dose being on 12/31/2020 and the patient remains on vancomycin. The patient is also on empiric antibiotic coverage with IV Zosyn. Follow calcitonin level has been elevated at 23 consistent with underlying sep sis with staph aureus. The vancomycin trough was 19.7 from this morning. Vancomycin dosing adjustments is being done by pharmacy. White cell count 7.6. D-dimer is at 1.7. Creatinine is improving started around 2.1. The chest x-ray from today is showing cardiomegaly with stable bilateral pulmonary infiltrates and I will say they perihilar infiltrates have improved compared to earlier chest x-rays. In terms of his ileus, the patient is tolerating full liquid diet and he is requesting for more fluids. The patient remains in atrial fibrillation. He has cardiomyopathy with an ejection fraction of 20-25%. His rate is controlled for now with a combination of metoprolol 25 mg by mouth twice a day and amiodarone 400 mg by mouth twice a day and he is also on long-term anticoagulation with Eliquis 2.5 mg by mouth twice a day. Function continues to improve. Neck fluid balance over the past 24 hours is negative for 16 mL. He is on no diuretics for now and the Lasix and placed on hold bases underlying renal failure. 01/03/2021, the patient is persistently bacteremic with MRSA. I think this is a main ongoing issue along with his Covid 19 related pneumonia, acute kidney injury, and abdominal ileus. The blood culture from yesterday came back again positive for MRSA and the patient remains on vancomycin. I'm not absolutely sure of the source of the infection. Unlikely to be related to MRSA pneumonia. Consider endovascular infection. Echocardiogram that was done during this current admission. Days back showed no evidence of any valvular vegetation. Remains on vancomycin. The chest x-ray f showed no major abnormalities. No evidence of any significant consolidation and the findings are essentially the same compared to yesterday's film. The patient's only on 2 L of oxygen by nasal cannula. Antibiotic coverage with Zosyn and vancomycin. His white cell count today that 7.3 and the patient is afebrile. I'm also noticing improvement in his renal function and the creatinine is down to 1.5 and the diuretics has been on hold. Potassium level needs to be replaced. His LDH level is down to 850 and the CRP is down to 53 and the patient remains on Decadron. The pro- calcitonin level is still quite elevated and the level came up to 23 and this is consistent with his MRSA bacteremia/sepsis. The patient has a vancomycin trough of 12.8. He remains in atrial fibrillation. He has a poor ejection fraction of 20-25%. His fluid balance over the past 24 hours has been in the order of +1.1 L. Abdomen is still distended. The patient is having liquidy stool. The abdomen is tympanic. The plan is to do a colonoscopy. The patient has taken follow-up prep with [facility]. 01/04/2021, the patient is on 2 L of oxygen by nasal cannula. He underwent his colonoscopy this morning it is ongoing ileus and the patient was found to have no major abnormalities. He was found to have some colonic polyps. 4 report is pending for now. The patient otherwise is not having any significant respiratory distress. Renal function continues to improve in the creatinine is down to 1.1. His chest x-ray from today is still pending. The blood cultures is still showing persistent bacteremia with the blood culture from 01/02/2021 was still positive for MRSA and a subsequent blood cultures from 01/03/2021 are positive for gram-positive cocci. As such, the patient is still bacteremic. He did have MRSA in his blood. He remains on vancomycin. The trough is 12.8 from yesterday. ID is on the case. No plans for JOHN by cardiology despite this ongoing bacteremia. As of his Covid 19 infection, the patient remains on Decadron 6 mg and he will complete a total of 10 day course. I make sure that they follow-up chest x-ray is obtained from today. Objective - Vital Signs Vital signs: Vital Signs Temp 98 F 01/04/21 03:15 Pulse 106 H 01/04/21 06:15 Resp 39 H 01/04/21 06:15 BP 149/79 01/04/21 06:15 Pulse Ox 91 L 01/04/21 06:15 Intake & Output 01/03/21 01/04/21 01/04/21 18:59 06:59 18:59 Intake Total 2160 120 10 Output Total 1478 603 Balance 682 -483 10 Weight 96.3 kg 95.2 kg Intake: IV 110 120 10 Normal saline 110 120 10 Intake, IV Titration 850 Amount Potassium Chloride 10 meq 600 In Water For Injection 1 100ml.bag @ 100 mls/hr IVPB Q1HR [facility] Rx#: [id number] Vancomycin 1,500 mg In 250 Sodium Chloride 0.9% 250 ml @ 125 mls/hr IVPB Q24HR [facility] Rx#:[id number] Oral 1200 Output: Urine 1475 600 Stool 3 3 Other: Voiding Method Urinal # Voids 0 # Bowel Movements 1 - Exam General: ill appearing, mild distress, appears at stated age, currently on 2 L of oxygen by nasal cannula Derm: warm, dry, multiple areas of ecchymosis Head: Head exam was generally normal. There was no scleral icterus or corneal arcus. Mucous membranes were moist. Eyes: EOMI, no lid lag, anicteric sclera Mouth: no lip lesion, mucus membranes dry Cardiovascular: The patient is currently in an atrial fibrillation with S1S2 irreg wth grade 3 ejection murmur Lungs: High pitched wheeze bilateral, no rhonchi, no rales , patient is also having tach is midline bases bilaterally. Abdominal: soft, + high pitched bowel sounds, nontender to palpation, no guarding, no appreciable organomegaly Ext: no gross muscle atrophy, 2+ edema b/l LE, no contractures Neuro: Neurologically, the patient is awake and alert and the patient does not have any focal neurological deficit. Cranial nerves are essentially intact. Psych: fatigued but awakes to speak, oriented, appropriate affect - Labs CBC & Chem 7: 01/03/21 05:23 01/04/21 03:30 Labs: Abnormal Lab Results - Last 24 Hours (Table) 01/03/21 01/03/21 01/03/21 Range/Units 11:26 16:37 18:00 Potassium 3.3 L (3.5-5.1) mmol/L Chloride (98-107) mmol/L Carbon Dioxide (22-30) mmol/L BUN (9-20) mg/dL Glucose (74-99) mg/dL POC Glucose (mg/dL) 179 H 273 H (75-99) mg/dL Calcium (8.4-10.2) mg/dL 01/03/21 01/04/21 01/04/21 Range/Units 19:58 03:30 06:15 Potassium 3.4 L (3.5-5.1) mmol/L Chloride 109 H (98-107) mmol/L Carbon Dioxide 21 L (22-30) mmol/L BUN 41 H (9-20) mg/dL Glucose 100 H (74-99) mg/dL POC Glucose (mg/dL) 264 H 119 H (75-99) mg/dL Calcium 8.2 L (8.4-10.2) mg/dL Microbiology - Last 24 Hours (Table) 01/03/21 05:23 Blood Culture - Final Blood 01/03/21 11:50 Blood Culture - Final Blood 01/02/21 15:18 Blood Culture Gram Stain - Preliminary Blood 01/01/21 08:06 Blood Culture Gram Stain - Final Blood Blood Culture - Final Methicillin resist S. aureus 01/02/21 15:18 Blood Culture - Final Blood 01/02/21 13:30 Gram Stain - Preliminary Sputum Sputum Culture - Preliminary Assessment and Plan Plan: 1 acute hypoxic respiratory failure, currently on 2 L of oxygen by nasal cannula, and the respiratory failure is essentially due to combination of CHF exacerbation and covid 19 related pneumonia, currently the patient is on Decadron. Overall pulmonary status is stable. Chest x-ray from today still pending. No active respiratory issues and there are no signs of respiratory decompensation at this point in time. 2 acute covid 19 related pneumonia currently on Decadron and this to a combination of vitamin C, zinc and vitamin D. Superimposed pneumonia is likely the patient had an elevated pro-calcitonin level and the patient is currently on vancomycin. Sputum has not resulted yet. Meanwhile the patient had MRSA in his blood, source is not clear, could be pneumonia. Strongly suspect an intravascular infection/cardiac abscess, valvular infection because of the persistent bacteremia. 3 CHF with impaired left ventricular function and systolic heart failure with an ejection fraction of 20-25%. The patient was taken off diuretics due to an acu te kidney injury. The patient was also off losartan and off dobutamine. 4 acute kidney injury, improving and creatinine is up to 1.1 5 large bowel ileus, please refer to the most recent CAT scan of the abdomen and the patient was given an enema with adequate bowel movements. General surgeries on the case ,colonoscopy today Reveals no abnormalities. 6 coronary artery disease, post non-STEMI, post cardiac catheterization with a patent GAYLE to LAD and patent previous stent inserted stents 7 new-onset atrial fibrillation, rate controlled on amiodarone and metoprolol and the patient is on long-term articulation with Eliquis, and correlation will be restarted post colonoscopy 8 iron deficiency anemia 9. Diabetes mellitus type 2, currently off metformin due to acute kidney injury 10 hypertension 11 hyperlipidemia 12 thrombocytopenia, recovered 13 MRSA in the blood, exact source is not clear. Rule out MRSA sepsis/bacteremia. Repeat blood cultures are being sent. Continue vancomycin for now. There is persistent bacteremia even the blood cultures from yesterday on 01/03/2021 are positive. Strongly suspect endovascular infection. Doubt this bacteremia is all resulting from a pneumonia. His pulmonary status is stable. JOHN is recommended. Plan Repeat chest x-ray Restart Eliquis keep Lasix hold Continue metoprolol, amiodarone and Eliquis for long-term anticoagulation vancomycin regarding his MRSA septicemia Repeat another set of blood cultures from 01/03/2021 were still positive Repeat blood cultures and the patient has persistent bacteremia with MRSA. Wean down the FiO2 as the patient is currently on 2 L by nasal cannula colonoscopy today done , and results noted We'll continue to follow
[2021-01-04] MEDS: bisacodyL 10 MG SUPP RECTAL SCH (08:33)
[2021-01-04] MEDS: ISOSORBIDE MONONITRATE ER 30 MG TAB.ER.24H PO SCH (08:38)
[2021-01-04] MEDS: ASCORBIC ACID 500 MG TAB PO SCH (08:38)
[2021-01-04] MEDS: CHOLECALCIFEROL 25 MCG (1000 IU) TABLET PO SCH (08:38)
[2021-01-04] MEDS: APIXABAN 5 MG TAB PO SCH ×2 (08:38→20:14)
[2021-01-04] MEDS: AMIODARONE 200 MG TAB PO SCH ×2 (08:38→20:14)
[2021-01-04] MEDS: PANTOPRAZOLE 40 MG TABLET PO SCH (08:38)
[2021-01-04] MEDS: METOPROLOL TARTRATE 25 MG TAB PO SCH ×2 (08:38→20:13)
[2021-01-04] MEDS: MIDODRINE 5 MG TAB PO SCH (08:38)
[2021-01-04] MEDS: SODIUM BICARBONATE TAB 650 MG TAB PO SCH ×3 (08:38→21:45)
[2021-01-04] MEDS: CLOPIDOGREL 75 MG TAB PO SCH (08:38)
[2021-01-04] MEDS: ATORVASTATIN 80 MG TAB PO SCH (08:39)
[2021-01-04] MEDS: TAMSULOSIN 0.4 MG CAP.ER.24H PO SCH ×2 (08:39→20:13)
[2021-01-04] MEDS: DEXAMETHASONE SOD PHOSPHATE 10 MG/ML 1 ML VIAL IV SCH (08:39)
[2021-01-04] MEDS: allopurinoL 100 MG TAB PO SCH (08:39)
[2021-01-04] MEDS: HYDROcodone/APAP 5-325MG 1 EACH TAB PO PRN ×3 (08:39→19:44)
[2021-01-04] MEDS: SIMETHICONE 40 MG/0.6 ML DROPS 2,000 MG/30 ML BOTTLE PO SCH ×4 (08:42→20:13)
--- NOTE | 2021-01-04 08:47 | XR ---
EXAMINATION TYPE: XR chest 1V portable DATE OF EXAM: 01/04/2021 COMPARISON: NONE HISTORY: SOB TECHNIQUE: Single frontal view of the chest is obtained. FINDINGS: Diffuse interstitial pattern. Heart is prominent there is postoperative change. Atheroscle rotic change aorta. Diffuse osteopenia and arthropathy of the shoulders. No sizable pleural effusion. Hypertrophic and degenerative change of the spine. IMPRESSION: Bilateral diffuse infiltrates stable.
[2021-01-04] MEDS ORDERED: FUROSEMIDE 10 MG/ML 4 ML VIAL IV SCH (10:30)
[2021-01-04] MEDS: ZINC SULFATE 220 MG CAP PO SCH (11:04)
[2021-01-04] MEDS: VANCOMYCIN 1,500 MG in SODIUM CHLORIDE 0.9% 250 ML IVPB SCH (11:05)
[2021-01-04] MEDS: FERROUS SULFATE 325 MG TAB PO SCH (11:57)
[2021-01-04] MEDS: POTASSIUM CHLORIDE ER 20 MEQ TAB.ER PO SCH ×2 (11:57→14:41)
[2021-01-04 12:01] LABS: Glucose,Whole Blood 186 mg/dL (75-99)
--- NOTE | 2021-01-04 12:58 | P.PN ---
Subjective Progress Note Date: 01/04/21 Patient is doing well today. No acute events overnight. Patient is not diuresing and is actually positive on his fluid balance. He had a colonoscopy this morning showing a couple polyps that were not removed secondary to patient being on anticoagulation. Also noted colon edema. Patient is clearly fluid overloaded and has anasarca up to the hip. Objective - Vital Signs Vital signs: Vital Signs Temp 96.5 F L 01/04/21 08:00 Pulse 101 H 01/04/21 09:00 Resp 35 H 01/04/21 09:00 BP 140/104 01/04/21 09:00 Pulse Ox 94 L 01/04/21 09:00 Intake & Output 01/03/21 01/04/21 01/04/21 18:59 06:59 18:59 Intake Total 2160 120 620 Output Total 1478 603 2 Balance 682 -483 618 Weight 96.3 kg 95.2 kg 95.2 kg Intake: IV 110 120 120 Normal saline 110 120 20 Intake, IV Titration 850 Amount Potassium Chloride 10 meq 600 In Water For Injection 1 100ml.bag @ 100 mls/hr IVPB Q1HR [facility] Rx#: [id number] Vancomycin 1,500 mg In 250 Sodium Chloride 0.9% 250 ml @ 125 mls/hr IVPB Q24HR [facility] Rx#:[id number] Oral 1200 500 Output: Urine 1475 600 Stool 3 3 2 Other: Voiding Method Urinal Urinal # Voids 0 # Bowel Movements 1 - Exam General: The patient is awake and alert, in no distress Eye: there is normal conjunctiva bilaterally. Neck: The neck is supple, there is no JVD. Cardiovascular: Normal S1-S2, no S3-S4, no murmurs. Respiratory: Lungs clear to auscultation bilaterally Gastrointestinal: Abdomen is soft, nontender Musculoskeletal: There is +3 edema up to the midshin Neurological:. Speech is normal. Skin: Skin is warm and dry - Labs CBC & Chem 7: 01/03/21 05:23 01/04/21 03:30 Labs: Abnormal Lab Results - Last 24 Hours (Table) 01/03/21 01/03/21 01/03/21 Range/Units 16:37 18:00 19:58 Potassium 3.3 L (3.5-5.1) mmol/L Chloride (98-107) mmol/L Carbon Dioxide (22-30) mmol/L BUN (9-20) mg/dL Glucose (74-99) mg/dL POC Glucose (mg/dL) 273 H 264 H (75-99) mg/dL Calcium (8.4-10.2) mg/dL 01/04/21 01/04/21 01/04/21 Range/Units 03:30 06:15 11:59 Potassium 3.4 L (3.5-5.1) mmol/L Chloride 109 H (98-107) mmol/L Carbon Dioxide 21 L (22-30) mmol/L BUN 41 H (9-20) mg/dL Glucose 100 H (74-99) mg/dL POC Glucose (mg/dL) 119 H 186 H (75-99) mg/dL Calcium 8.2 L (8.4-10.2) mg/dL Microbiology - Last 24 Hours (Table) 01/03/21 05:23 Blood Culture Gram Stain - Preliminary Blood 01/03/21 11:50 Blood Culture Gram Stain - Preliminary Blood 01/02/21 15:18 Blood Culture Gram Stain - Preliminary Blood Blood Culture - Preliminary Presumptive MRSA 01/01/21 08:06 Blood Culture Gram Stain - Final Blood Blood Culture - Final Methicillin resist S. aureus 01/03/21 05:23 Blood Culture - Final Blood 01/03/21 11:50 Blood Culture - Final Blood 01/02/21 15:18 Blood Culture - Final Blood Assessment and Plan Assessment: Patient is a 70-year-old male with a past medical history of coronary artery disease with history of CABG in 1999, diabetes mellitus type 2, hypertension, and dyslipidemia who presented to the emergency room with shortness of breath. He was subsequently found to have an acute exacerbation of systolic congestive heart failure. He was tachypneic and hypoxic on presentation. He was started on IV heparin due to an elevated troponin. He was started on Lasix and admitted. Cardiology was consulted who agreed with continuing Lasix and IV heparin. He had some optimal diuresis and therefore his Lasix was increased to 80 mg every 8 hours. Due to his low ejection fraction of 20-25% which was newly discovered plan was for cardiac catheterization, this was completed on 12/23 his stent were found to be patent LAD was widely open, with no additional intervention required. He was noted to have worsening renal function and his lisinopril was discontinued. He was transitioned off of heparin drip and onto Eliquis. He was also started on dobutamine. He did go into A. fib and was started on IV amiodarone and then transitioned to oral amiodarone. He was noted to have worsening renal function was seen by nephrology on 12/23. They agreed with continuing dobutamine drip and maintaining a systolic blood pressure greater than 110. On the evening of 12/23 patient seen in follow going to the bathroom and was found to be unresponsive with possible loss of pulses. CPR was initiated and after 1 round of CPR ROSC was noted, concern for possible vasovagal episode. He was awake and alert and did not require intubation. He was transferred to the ICU in critical care was consulted. There was some concern of possible seizure activity versus true cardiac arrest. Head CT was completed which showed no acute process, EEG was normal. His transitioned off of dobutamine on 12/24. He developed abdominal distension, nausea, and abdominal pain on 12/[address] demonstrated large bowel ileus. He did have an enema which resulted in liquid bowel movement and he had one large formed BM the morning of 12/26, the rest were liquid. His renal function was slowly improving and he was kept on lasix. He started having multiple liquid bowel movements. He continued to have some liquid bowel movements but was tolerating a diet. Overnight on 12/29 the patient started spiking fevers at approximately 8 PM. He experienced respiratory distress and was noted to be hypoxemic. CXR demonstrated patchy perihilar infiltrates and COVID testing came back positive. He required BiPap for O2 support he was transferred to the ICU. Pulmonary was reconsulted. He was noted to have high procalcitonin and was started on Zosyn. He then became nauseated and surgery made him NPO and ordered dulcolax. + blood culture and possible MRSA on 12/30 started on vanco. Covid-19 pneumonitis with acute hypoxic respiratory failure - Pulm recs - Decadron day #6 - Follow inflammatory labs - vit C, zinc, vit D - possible bacterial pneumonia with elevated procalcitonin, patient received Zosyn for 4 days and currently on vancomycin day #6 MRSA bacteremia -Persistent for 5 days with blood culture positive on 12/30-25 -Repeat blood culture today - continue vanco - Exact source unclear possibly underlying pneumonia. I consulted infectious disease for further evaluation. Patient does not have any lines or open wounds. Cardiology consulted to perform a JOHN that they did not think it's necessary as the patient echocardiogram was done 2 days ago was a good study and did not show any evidence of endocarditis or vegetation Acute exacerbation of systolic congestive heart failure with ejection fraction 20-25% -Cardiology recommendations appreciated -Strict I's and O's, daily weights -Lopressor, losartan on hold due to LULÚ -Required dobutamine during this admission -I would continue IV Lasix 40 mg twice daily LULÚ, worsening: cardiorenal with component of contrast induced nephropathy, metabolic acidosis - nephrology recs - hold losartan -Off fluids -On oral bicarb large bowel ileus - Improving clinically. Seen and evaluated by general surgery. Underwent colonoscopy showing colon polyp and segmental edema involving the sigmoid colon New-onset Paroxysmal A. fib -Started on IV amiodarone and then transitioned to oral amiodarone -Eliquis, renal dose adjusted. Non-STEMI with history of coronary artery disease and CABG -Cath with patent GAYLE to LAD and prior stents, no intervention needed -Continue with Plavix, Lipitor, Imdur, Lopressor Iron deficiency anemia -Follow CBC -No indication for transfusion at this point in time. -Recommend colonoscopy as outpatient in light of ileus, frequent use of imodium at home, and iron deficiency Diabetes mellitus type 2 - off metformin - SSI - follow BS - A1C 6 Hypertension - controlled - Continue with metoprolol - follow BP Dyslipidemia - Statin Hypomagnesemia, resolved thrombocytopenia, resolved Cardiac event possible syncope vs cardiac arrest Hypokalemia, resolved DVT prophylaxis: Cara Discussed with: patient, nursing Anticipated discharge:undetermined Anticipated discharge place: undetermined A total of 35 minutes was spent on the care of this complex patient more than 50% of the time was spent in counseling and care coordination.
--- NOTE | 2021-01-04 16:02 | P.PN ---
Subjective Progress Note Date: 01/04/21 CHIEF COMPLAINT: Colonic distention HISTORY OF PRESENT ILLNESS: The patient is a 70 year old male with acute on chronic congestive heart failure, chronic anticoagulation, multiple cardiopulmonary arrest, recent diagnosis coronavirus serology who had ileus and abnormal computed tomography scan for sigmoid stricture. Colonoscopy has been completed with findings of focal edema along the sigmoid colon causing functional large bowel obstruction. Patient has generalized anasarca. He had been placed on regular diet. He is tolerating. Creatinine has improved. Potassium has improved as well. No reports of abdominal pain. He is passing flatus and bowel movements. REVIEW OF ORGAN SYSTEMS: No fevers or chills. He is having bowel movements. No reports of abdominal pain. PHYSICAL EXAM: VITALS: Reviewed CONSTITUTIONAL: Well developed and in no acute distress. EYES: Conjuctivae without sclera icterus. Extraocular movements grossly intact. HEAD, EARS, NOSE, THROAT: Moist buccal mucosa. Head is atraumatic, normocephalic. Hears conversational speech. No nasal drainage. Wears glasses. NECK: No thyroidomegaly. RESPIRATORY: Non-labored respirations and equal bilateral excursions. CARDIOVASCULAR: Iregular rate and rhythm. ABDOMEN: No peritonitis. Mild abdominal distention. MUSCULOSKELETAL: No clubbing. No cyanosis. SKIN: Well perfused with good skin turgor. NEUROLOGIC: Cranial nerves II through XII grossly intact. Sensation upper and extremities intact. No focal or lateralizing signs. PSYCH: Appropriate affect. Alert and oriented to person, place and time. Displays appropriate insight. CLINCAL LABS: Reviewed. WBC normal 7.3. Potassium up to 3.4. Creatinine improving to normal 1.18 ASSESSMENT: 1. Abdominal distention with large bowel dilation, persistent 2. Coronary artery disease with history of stent 3. Acute on chronic congestive heart failure 4. History of recent cardiac event requiring cardiopulmonary resuscitation 5. Diabetes type 2, [id number] 6. Hypokalemia 7. Acute on chronic renal injury 8. Anemia 9. Leukopenia, improved. 10. Coronavirus positive serology 11. Functional obstruction due to colonic edema PLAN: 1. Recommend correction of anasarca with generous diuresis. 2. Regular diet, low-salt Objective - Vital Signs Vital signs: Vital Signs Temp 96.5 F L 01/04/21 08:00 Pulse 101 H 01/04/21 09:00 Resp 35 H 01/04/21 09:00 BP 140/104 01/04/21 09:00 Pulse Ox 94 L 01/04/21 09:00 Intake & Output 01/03/21 01/04/21 01/04/21 18:59 06:59 18:59 Intake Total 2160 120 1420 Output Total 1478 603 452 Balance 682 -483 968 Weight 96.3 kg 95.2 kg 95.2 kg Intake: IV 110 120 120 Normal saline 110 120 20 Intake, IV Titration 850 300 Amount DAPTOmycin 550 mg In 50 Sodium Chloride 0.9% 50 ml @ 100 mls/hr IVPB Q24H [facility] Rx#:[id number] Potassium Chloride 10 meq 600 In Water For Injection 1 100ml.bag @ 100 mls/hr IVPB Q1HR [facility] Rx#: [id number] Vancomycin 1,500 mg In 250 250 Sodium Chloride 0.9% 250 ml @ 125 mls/hr IVPB Q24HR [facility] Rx#:[id number] Oral 1200 1000 Output: Urine 1475 600 450 Stool 3 3 2 Other: Voiding Method Urinal Urinal # Voids 0 # Bowel Movements 1 - Labs CBC & Chem 7: 01/03/21 05:23 01/04/21 03:30 Labs: Abnormal Lab Results - Last 24 Hours (Table) 01/03/21 01/03/21 01/03/21 Range/Units 16:37 18:00 19:58 Potassium 3.3 L (3.5-5.1) mmol/L Chloride (98-107) mmol/L Carbon Dioxide (22-30) mmol/L BUN (9-20) mg/dL Glucose (74-99) mg/dL POC Glucose (mg/dL) 273 H 264 H (75-99) mg/dL Calcium (8.4-10.2) mg/dL 01/04/21 01/04/21 01/04/21 Range/Units 03:30 06:15 11:59 Potassium 3.4 L (3.5-5.1) mmol/L Chloride 109 H (98-107) mmol/L Carbon Dioxide 21 L (22-30) mmol/L BUN 41 H (9-20) mg/dL Glucose 100 H (74-99) mg/dL POC Glucose (mg/dL) 119 H 186 H (75-99) mg/dL Calcium 8.2 L (8.4-10.2) mg/dL Microbiology - Last 24 Hours (Table) 01/03/21 05:23 Blood Culture Gram Stain - Preliminary Blood 01/03/21 11:50 Blood Culture Gram Stain - Preliminary Blood 01/02/21 15:18 Blood Culture Gram Stain - Preliminary Blood Blood Culture - Preliminary Presumptive MRSA 01/01/21 08:06 Blood Culture Gram Stain - Final Blood Blood Culture - Final Methicillin resist S. aureus 01/03/21 05:23 Blood Culture - Final Blood 01/03/21 11:50 Blood Culture - Final Blood 01/02/21 15:18 Blood Culture - Final Blood Assessment and Plan (1) Anemia Current Visit: Yes Status: Acute Code(s): D64.9 - ANEMIA, UNSPECIFIED SNOMED Code(s): 787249993 (2) Leukopenia Current Visit: Yes Status: Acute Code(s): D72.819 - DECREASED WHITE BLOOD CELL COUNT, UNSPECIFIED SNOMED Code(s): 77916677 (3) Acute on chronic renal insufficiency Current Visit: Yes Status: Acute Code(s): N28.9 - DISORDER OF KIDNEY AND URETER, UNSPECIFIED; N18.9 - CHRONIC KIDNEY DISEASE, UNSPECIFIED SNOMED Code(s): 732774317 (4) CHF (congestive heart failure) Current Visit: Yes Status: Acute Code(s): I50.9 - HEART FAILURE, UNSPECIFIED SNOMED Code(s): 57014711 (5) Cardiopulmonary arrest Current Visit: Yes Status: Acute Code(s): I46.9 - CARDIAC ARREST, CAUSE UNSPECIFIED SNOMED Code(s): 720415200 (6) Elevated troponin Current Visit: Yes Status: Acute Code(s): R77.8 - OTHER SPECIFIED ABNORMALITIES OF PLASMA PROTEINS SNOMED Code(s): 748428896 (7) Hypokalemia Current Visit: Yes Status: Acute Code(s): E87.6 - HYPOKALEMIA SNOMED Code(s): 82527728 (8) Ileus Current Visit: Yes Status: Acute Code(s): K56.7 - ILEUS, UNSPECIFIED SNOMED Code(s): 719747685
--- NOTE | 2021-01-04 16:07 | PN ---
PROGRESS NOTE Patient is seen for followup for acute kidney injury, mostly ATN, currently improved. Patient also has underlying COVID-19 pneumonia. His oxygen requirements have improved. Renal function continues to improve, with creatinine down to 1.18. Patient also has MRSA bacteremia, for which an MRI of the lumbar spine is being considered to rule out diskitis. Patient had been having diarrhea, which is now improved. Patient had a colonoscopy this morning which showed evidence of colonic ileus. There was a polyp noted, but polypectomy was not done secondary to patient being on anticoagulation. On examination, patient's vital signs are reviewed. Blood pressure was 149/79, heart rate 105 per minute. Patient is not examined. Case is discussed with nursing staff. He continues to have good urine output with 24-hour output documented at about 2 L. RUG FRAME MOUNTER exam is grossly intact. Patient continues to have edema in his lower extremities, about 2+, unchanged from yesterday. Labs show sodium 139, potassium 3.4, chloride 109. CO2 is 21, BUN 41, creatinine 1.18. ASSESSMENT: 1. Acute kidney injury, acute tubular necrosis, currently nonoliguric secondary to sepsis, hypotension, underlying COVID infection as well as an element of contrast nephropathy. Renal function is significantly improved. Patient has good urine output. He has edema in his lower extremities with an EF of 20% to 25%. Therefore patient is maintained on diuretics. I will continue with the current dose of Lasix 40 mg IV daily. 2. Cardiomyopathy. EF 20% to 25%. 3. Methicillin-resistant Staphylococcus aeruginosa bacteremia with no evidence of vegetation on echocardiogram. Patient is scheduled for MRI of the spine. 4. Hypokalemia secondary to diuresis. 5. COVID-19 pneumonia, currently maintained on Decadron. 6. Atrial fibrillation with controlled ventricular response. 7. Colonic ileus, status post colonoscopy done yesterday. PLAN: Continue with IV Lasix. Repeat labs in a.m. Replace potassium. Okay to proceed with MRI with contrast. MMODL / IJN: [id number] /
[2021-01-04 17:47] LABS: Glucose,Whole Blood 315 mg/dL (75-99)
[2021-01-04 17:49] LABS: Glucose,Whole Blood 288 mg/dL (75-99)
[2021-01-04 20:03] LABS: Glucose,Whole Blood 260 mg/dL (75-99)
[2021-01-04] MEDS: FUROSEMIDE 10 MG/ML 4 ML VIAL IV SCH (20:13)
--- NOTE | 2021-01-04 23:12 | PN ---
PROGRESS NOTE DATE OF SERVICE: 01/04/2021 REASON FOR FOLLOWUP: MRSA bacteremia. INTERVAL HISTORY: The patient is currently afebrile. The patient has been breathing comfortably. Still requiring high-flow oxygen. The patient denies having any chest pain or shortness of breath. He did have a cough. No abdominal pain or diarrhea. PHYSICAL EXAMINATION: Blood pressure is 140/100 with a pulse of 101, temperature 98. He is 94% on 2 L nasal cannula. General description is an elderly male lying in bed in no distress. RESPIRATORY SYSTEM: Unlabored breathing with decreased breath sounds at the base. No wheeze. HEART: S1, S2. Regular rate and rhythm. ABDOMEN: Soft. No tenderness. LABS: BUN of 41, creatinine is 1.18. Vancomycin level was low at 12.8. Blood cultures repeat from 01/03 were positive as well. DIAGNOSTIC IMPRESSION AND PLAN: Patient with MRSA bacteremia, nosocomial with initial concern for possible pneumonia; however, sputum has been negative so far. The patient's chest x-ray has more of a diffuse infiltrate rather than consolidation. The patient has been complaining of a lot of back pain; possible diskitis. At this point we will obtain an MRI of the lumbosacral spine with contrast, and this has been cleared with Nephrology. Antibiotic will be switched over to daptomycin, as the patient has been bacteremic for almost a week on vancomycin, and clinical suspicion for pneumonia is low. All his questions and concerns were answered. Plan of care was discussed in detail with the admitting team. ILIA / BRENDA: [id number] /
--- NOTE | 2021-01-05 04:24 | MR ---
EXAMINATION TYPE: MR lumbar spine wo con DATE OF EXAM: 01/04/2021 COMPARISON: 11/23/2017 HISTORY: MRSA bacteremia, back pain, discitis. Multiplanar multiecho imaging of the lumbar spine was performed without contrast. The vertebra have normal alignment. There is no compression fracture. There is some disc space narrow ing at L5-S1. There is no lumbar paraspinal mass. Posterior elements are intact. There is some hypert rophic facet arthropathy and mild lateral recess stenosis at L4-5. I do not see any significant incre ased fluid signal in the distal suggest discitis. There is hypertrophic spurring of the endplates ant eriorly and posteriorly at L4-5 and L5-S1. There is bilateral narrowing of the neural foramina from L 3 to S1 due to disc space narrowing and facet arthropathy. IMPRESSION: Spondylotic changes. No definite sign of discitis. There is bilateral multilevel mild neural foramina l narrowing due to disc space narrowing and facet arthropathy.
[2021-01-05 06:34] LABS: C Reactive Protein 45.3 mg/L (<10.0); Calcium 8.3 mg/dL (8.4-10.2); Potassium 3.6 mmol/L (3.5-5.1)
[2021-01-05 07:00] LABS: Glucose,Whole Blood 190 mg/dL (75-99)
[2021-01-05] MEDS ORDERED: VANCOMYCIN TROUGH DUE 1 EACH MISC MISCELLANE ONE (08:00)
[2021-01-05] MEDS: TAMSULOSIN 0.4 MG CAP.ER.24H PO SCH ×2 (08:23→20:45)
[2021-01-05] MEDS: PANTOPRAZOLE 40 MG TABLET PO SCH (08:23)
[2021-01-05] MEDS: METOPROLOL TARTRATE 25 MG TAB PO SCH ×2 (08:23→20:45)
[2021-01-05] MEDS: CHOLECALCIFEROL 25 MCG (1000 IU) TABLET PO SCH (08:23)
[2021-01-05] MEDS: ZINC SULFATE 220 MG CAP PO SCH (08:23)
[2021-01-05] MEDS: SODIUM BICARBONATE TAB 650 MG TAB PO SCH ×3 (08:23→20:44)
[2021-01-05] MEDS: allopurinoL 100 MG TAB PO SCH (08:23)
[2021-01-05] MEDS: CLOPIDOGREL 75 MG TAB PO SCH (08:23)
[2021-01-05] MEDS: FUROSEMIDE 10 MG/ML 4 ML VIAL IV SCH ×3 (08:23→20:45)
[2021-01-05] MEDS: ISOSORBIDE MONONITRATE ER 30 MG TAB.ER.24H PO SCH (08:23)
[2021-01-05] MEDS: ASCORBIC ACID 500 MG TAB PO SCH (08:23)
[2021-01-05] MEDS: APIXABAN 5 MG TAB PO SCH ×2 (08:23→20:45)
[2021-01-05] MEDS: AMIODARONE 200 MG TAB PO SCH ×2 (08:23→20:45)
[2021-01-05] MEDS: DEXAMETHASONE SOD PHOSPHATE 10 MG/ML 1 ML VIAL IV SCH (08:24)
[2021-01-05] MEDS: bisacodyL 10 MG SUPP RECTAL SCH (08:25)
[2021-01-05] MEDS: INSULIN ASPART (NovoLOG) 100 UNIT/ML VIAL SQ SCH ×4 (08:25→20:47)
[2021-01-05] MEDS: SIMETHICONE 40 MG/0.6 ML DROPS 2,000 MG/30 ML BOTTLE PO SCH ×4 (08:25→20:46)
--- NOTE | 2021-01-05 09:21 | P.PN ---
Subjective Progress Note Date: 01/05/21 Principal diagnosis: This is a 70-year-old male seen in consultation because of acute kidney injury from [place] with pneumonia. Additionally had MRSA bacteremia. He is slowly impro ving although remained short of breath. He has significant cardiomyopathy with ejection fraction of 20-25%, atrial fibrillation. No nausea vomiting diarrhea Blood pressure remains somewhat high. 24-hour urine output is documented at 678 mL only. Is on Lasix 40 mg by mouth twice a day Objective - Vital Signs Vital signs: Vital Signs Temp 99.3 F 01/05/21 09:09 Pulse 81 01/05/21 09:09 Resp 22 01/05/21 09:09 BP 141/83 01/05/21 09:09 Pulse Ox 94 L 01/05/21 09:09 Intake & Output 01/04/21 01/05/21 01/05/21 18:59 06:59 18:59 Intake Total 1420 200 Output Total 453 225 Balance 967 -25 Weight 95.2 kg 97 kg Intake: IV 120 0 Normal saline 20 0 Intake, IV Titration 300 Amount DAPTOmycin 550 mg In 50 Sodium Chloride 0.9% 50 ml @ 100 mls/hr IVPB Q24H [facility] Rx#:[id number] Vancomycin 1,500 mg In 250 Sodium Chloride 0.9% 250 ml @ 125 mls/hr IVPB Q24HR [facility] Rx#:[id number] Oral 1000 200 Output: Urine 450 225 Stool 3 Other: Voiding Method Urinal Urinal # Voids 4 # Bowel Movements 1 Examination is awake alert, slightly short of breath HEENT exam JVP is elevated about 7-8 cm about sternal angle is supple no facial asymmetry Lung exam is significant for occasional fine crackle at the left base fairly Heart sounds unremarkable except for atrial fibrillation Abdomen soft nontender Extremity exam was mild edema Neurologically awake alert oriented but profoundly weak had difficulty sitting up - Labs CBC & Chem 7: 01/03/21 05:23 01/05/21 05:38 Labs: Abnormal Lab Results - Last 24 Hours (Table) 01/04/21 01/04/21 01/04/21 Range/Units 11:59 17:45 17:47 Chloride (98-107) mmol/L BUN (9-20) mg/dL Glucose (74-99) mg/dL POC Glucose (mg/dL) 186 H 315 H 288 H (75-99) mg/dL Calcium (8.4-10.2) mg/dL Lactate Dehydrogenase (313-618) U/L C-Reactive Protein (<10.0) mg/L 01/04/21 01/05/21 01/05/21 Range/Units 20:02 05:38 06:53 Chloride 110 H (98-107) mmol/L BUN 36 H (9-20) mg/dL Glucose 183 H (74-99) mg/dL POC Glucose (mg/dL) 260 H 190 H (75-99) mg/dL Calcium 8.3 L (8.4-10.2) mg/dL Lactate Dehydrogenase 955 H (313-618) U/L C-Reactive Protein 45.3 H (<10.0) mg/L Microbiology - Last 24 Hours (Table) 01/04/21 03:30 Blood Culture - Preliminary Blood No Growth after 24 hours 01/03/21 05:23 Blood Culture Gram Stain - Preliminary Blood Blood Culture - Preliminary Presumptive MRSA 01/03/21 11:50 Blood Culture Gram Stain - Preliminary Blood Blood Culture - Preliminary Presumptive MRSA 01/02/21 15:18 Blood Culture Gram Stain - Preliminary Blood Blood Culture - Preliminary Presumptive MRSA 01/01/21 08:06 Blood Culture Gram Stain - Final Blood Blood Culture - Final Methicillin resist S. aureus 01/03/21 05:23 Blood Culture - Final Blood 01/03/21 11:50 Blood Culture - Final Blood Assessment and Plan Assessment: Impression 1. Acute kidney injury likely from the cardiac cath and dye but also element of cardiorenal syndrome with ejection fraction being 20%,: Pneumonia. Creatinine is down to normal at 1.05. 2. Chronic kidney disease, stage III likely diabetic nephropathy baseline creatinine 1.3. Urinalysis shows 2+ proteinuria on 12/24/2020. Possibility of renovascular disease is considered because of the coronary artery disease 3. Diabetes mellitus, with 2+ proteinuria . 4. Severe coronary artery disease status post CABG and subsequent stent 2018, heart catheterization yesterday the 2020 no intervention. Ejection fraction is 20%. 5. Anemia hemoglobin is 10.7 at target for chronic kidney disease. 6. Slightly high blood pressure Recommendation 1. start IV Lasix 40 twice a day and hold the by mouth Lasix and see how he responds as far as the blood pressure is concerned creatinine is concerned. 2. Also will hopefully improve his blood pressure with more diuresis 3. Watch creatinine urine output blood pressure closely
[2021-01-05 09:28] LABS: Ferritin 304.7 ng/mL (22.0-322.0)
[2021-01-05] MEDS: INSULIN DETEMIR (LEVEMIR) 100 UNIT/ML SYR SQ SCH (09:29)
--- NOTE | 2021-01-05 10:15 | P.PN ---
Subjective Progress Note Date: 01/05/21 12/31/2020, patient is being seen in follow-up in the intensive care unit. The patient the patient is an acute hypoxic respiratory failure due to a combination of the congestion heart failure and coronavirus/Covid 19 related pneumonia. Note that the patient has CHF on the patient also has impaired left ventricular function with an ejection fraction of 20-25% and the patient is post cardiac catheterization and coronary stent placed earlier was noted to be normal and patent and no intervention was performed. The patient also is post brief cardiac arrest with PEA requiring CPR and return of spontaneous circulation occurred on 12/23/2020. Note that the patient's computed tomography scan of the head that was done showed no abnormalities an EEG was also normal. During the course of her treatment here in the hospital, the patient also developed an ileus with secondary abdominal distention and nausea and emesis and the CAT scan of the abdomen that was done on 12/25/2020 showed large bowel ileus. The patient has was given an enema which resulted in to a liquid bowel movement and subsequently the patient phoned 1 large bowel movement and the rest was essentially liquids. The patient is known to have CAD, previous bypass surgery, ischemic cardiomyopathy, diabetes mellitus, and she fibrillation which is a new onset in addition to hypertension and hyperlipidemia and history of colonic ileu s. The patient currently is in intensive care unit. The patient is on high flow oxygen 10 L per minute nasal cannula to maintain a saturation above 90%. The was dropped to Chest x-ray showing diffuse breath and pulmonary infiltrates. The patient is being treated with a combination of Decadron which is currently being given at a dose of 6 minute grams IV every 24 hours in addition to routine vitamin supplements for Covid 19 related pneumonia. At the same time, the patient is on broad-spectrum antibiotics with a combination of Zosyn and vancomycin. The antibiotic coverage essentially empiric as the patient has an elevated pro-calcitonin level. She has developed an acute kidney injury in the creatinine is up to 2.1 from a baseline of 1.32 at time of admission. This creatinine rises was from yesterday and based on that the patient on no diuretics. This acute kidney injury was thought to be related to a various factors including diuretics and contrast and heart failure. Based on the evolving acute kidney injury, the patient was taken off the diuretics. The patient is also in atrial fibrillation. The patient on amiodarone. The patient is on long-term and to coagulation with Eliquis. Creatinine today is up to 2.48 and the patient has staph aureus On 01/01/2021, the patient is being seen for a follow-up. The patient is quite comfortable on 3 L by nasal cannula. Repeat chest x-ray was done and it showed no major interval change compared to yesterday. Meanwhile, the patient is still in the intensive care unit and he is being treated for all these comorbidities. In terms of his respiratory status, the patient is still on Decadron 6 mg daily. His inflammatory markers show an LDH of 810 with a CRP of 164 which is down compared to yesterday. He did have staph aureus in the blood which is presumptively staph aureus. Due to concern of his underlying renal fa ilure, I stopped the vancomycin which probably has to be restarted back again. He is also on Zosyn. His pro-calcitonin level was as high as 8.8. A serum vancomycin level is not available at this point in time. Note that the patient also developed an acute kidney injury. Creatinine is at 2.5 which is slightly higher compared to yesterday. Serum bicarb is at 17 and the BUN is a 61. The patient's cardiac rhythm is still atrial fibrillation which is controlled for now. Abdominal ileus is still present as the patient's abdomen is slightly distended and patient is having liquid bowel movements. No nausea. No emesis. He is tolerating no direct for now and the patient is currently nothing by mouth. The abdominal film from yesterday showed persistence of ileus and distention of the large bowel. No abdominal pain at this point in time. As of his atrial fibrillation, the patient is on a combination of metoprolol 25 twice a day and amiodarone and the patient is on Eliquis 2.5 mg by mouth twice a day. His rate is currently controlled. His heart rate is in the mid 80s. 01/02/2021 the patient is being seen for a follow-up. In terms of his pulmonary status, the patient remains on oxygen at 2 L per minute nasal cannula. As mentioned earlier, the patient has a Covid 19 related pneumonia and the patient remains on Decadron 6 mg by mouth daily. In terms of his inflammatory markers, the levels are still pending for now and they have been ordered. Meanwhile, the patient has positive blood culture with MRSA. There are at least 3 the positive blood cultures of last dose being on 12/31/2020 and the patient remains on vancomycin. The patient is also on empiric antibiotic coverage with IV Zosyn. Follow calcitonin level has been elevated at 23 consistent with underlying sep sis with staph aureus. The vancomycin trough was 19.7 from this morning. Vancomycin dosing adjustments is being done by pharmacy. White cell count 7.6. D-dimer is at 1.7. Creatinine is improving started around 2.1. The chest x-ray from today is showing cardiomegaly with stable bilateral pulmonary infiltrates and I will say they perihilar infiltrates have improved compared to earlier chest x-rays. In terms of his ileus, the patient is tolerating full liquid diet and he is requesting for more fluids. The patient remains in atrial fibrillation. He has cardiomyopathy with an ejection fraction of 20-25%. His rate is controlled for now with a combination of metoprolol 25 mg by mouth twice a day and amiodarone 400 mg by mouth twice a day and he is also on long-term anticoagulation with Eliquis 2.5 mg by mouth twice a day. Function continues to improve. Neck fluid balance over the past 24 hours is negative for 16 mL. He is on no diuretics for now and the Lasix and placed on hold bases underlying renal failure. 01/03/2021, the patient is persistently bacteremic with MRSA. I think this is a main ongoing issue along with his Covid 19 related pneumonia, acute kidney injury, and abdominal ileus. The blood culture from yesterday came back again positive for MRSA and the patient remains on vancomycin. I'm not absolutely sure of the source of the infection. Unlikely to be related to MRSA pneumonia. Consider endovascular infection. Echocardiogram that was done during this current admission. Days back showed no evidence of any valvular vegetation. Remains on vancomycin. The chest x-ray f showed no major abnormalities. No evidence of any significant consolidation and the findings are essentially the same compared to yesterday's film. The patient's only on 2 L of oxygen by nasal cannula. Antibiotic coverage with Zosyn and vancomycin. His white cell count today that 7.3 and the patient is afebrile. I'm also noticing improvement in his renal function and the creatinine is down to 1.5 and the diuretics has been on hold. Potassium level needs to be replaced. His LDH level is down to 850 and the CRP is down to 53 and the patient remains on Decadron. The pro- calcitonin level is still quite elevated and the level came up to 23 and this is consistent with his MRSA bacteremia/sepsis. The patient has a vancomycin trough of 12.8. He remains in atrial fibrillation. He has a poor ejection fraction of 20-25%. His fluid balance over the past 24 hours has been in the order of +1.1 L. Abdomen is still distended. The patient is having liquidy stool. The abdomen is tympanic. The plan is to do a colonoscopy. The patient has taken follow-up prep with [facility]. 01/04/2021, the patient is on 2 L of oxygen by nasal cannula. He underwent his colonoscopy this morning it is ongoing ileus and the patient was found to have no major abnormalities. He was found to have some colonic polyps. 4 report is pending for now. The patient otherwise is not having any significant respiratory distress. Renal function continues to improve in the creatinine is down to 1.1. His chest x-ray from today is still pending. The blood cultures is still showing persistent bacteremia with the blood culture from 01/02/2021 was still positive for MRSA and a subsequent blood cultures from 01/03/2021 are positive for gram-positive cocci. As such, the patient is still bacteremic. He did have MRSA in his blood. He remains on vancomycin. The trough is 12.8 from yesterday. ID is on the case. No plans for JOHN by cardiology despite this ongoing bacteremia. As of his Covid 19 infection, the patient remains on Decadron 6 mg and he will complete a total of 10 day course. I make sure that they follow-up chest x-ray is obtained from today. 01/05/2021 I'm seeing the patient for the follow-up. He is currently out of the intensive care unit and is currently on the medical floor. He remains on 2 L of oxygen by nasal cannula. No signs of any significant respiratory distress. Active issues for now are Covid 19 related pneumonia, ileus which is improved an d ongoing septicemia/bacteremia with MRSA. The last blood culture from 01/04/2021 is not showing any growth yet it's early. Prior to that, his cultures from 01/03/2021 were again positive for MRSA. The patient remains on vancomycin. His vancomycin trough level is at 12.8 from 01/03/2021 and pharmacy is adjusting the dose of vancomycin. His white cell count today is at pending and the rest of the electrolytes including his renal function is stable with a creatinine of 1.0 with a BUN of 36 and a sodium of 140. He is back on diuretics and is currently taking Lasix 40 mg IV every 12 hours. He has chronic atrial fibrillation. He remains on anticoagulation with Eliquis. No other significant events otherwise for now. He is tolerating diet Objective - Vital Signs Vital signs: Vital Signs Temp 99.3 F 01/05/21 09:09 Pulse 81 01/05/21 09:09 Resp 22 01/05/21 09:09 BP 141/83 01/05/21 09:09 Pulse Ox 94 L 01/05/21 09:09 Intake & Output 01/04/21 01/05/21 01/05/21 18:59 06:59 18:59 Intake Total 1420 200 Output Total 453 225 Balance 967 -25 Weight 95.2 kg 97 kg Intake: IV 120 0 Normal saline 20 0 Intake, IV Titration 300 Amount DAPTOmycin 550 mg In 50 Sodium Chloride 0.9% 50 ml @ 100 mls/hr IVPB Q24H [facility] Rx#:[id number] Vancomycin 1,500 mg In 250 Sodium Chloride 0.9% 250 ml @ 125 mls/hr IVPB Q24HR [facility] Rx#:[id number] Oral 1000 200 Output: Urine 450 225 Stool 3 Other: Voiding Method Urinal Urinal # Voids 4 # Bowel Movements 1 - Exam General: ill appearing, mild distress, appears at stated age, currently on 2 L of oxygen by nasal cannula Derm: warm, dry, multiple areas of ecchymosis Head: Head exam was generally normal. There was no scleral icterus or corneal arcus. Mucous membranes were moist. Eyes: EOMI, no lid lag, anicteric sclera Mouth: no lip lesion, mucus membranes dry Cardiovascular: The patient is currently in an atrial fibrillation with S1S2 irreg wth grade 3 ejection murmur Lungs: High pitched wheeze bilateral, no rhonchi, no rales , patient is also having tach is midline bases bilaterally. Abdominal: soft, + high pitched bowel sounds, nontender to palpation, no guarding, no appreciable organomegaly Ext: no gross muscle atrophy, 2+ edema b/l LE, no contractures Neuro: Neurologically, the patient is awake and alert and the patient does not have any focal neurological deficit. Cranial nerves are essentially intact. Psych: fatigued but awakes to speak, oriented, appropriate affect - Labs CBC & Chem 7: 01/03/21 05:23 01/05/21 05:38 Labs: Abnormal Lab Results - Last 24 Hours (Table) 01/04/21 01/04/21 01/04/21 Range/Units 11:59 17:45 17:47 Chloride (98-107) mmol/L BUN (9-20) mg/dL Glucose (74-99) mg/dL POC Glucose (mg/dL) 186 H 315 H 288 H (75-99) mg/dL Calcium (8.4-10.2) mg/dL Lactate Dehydrogenase (313-618) U/L C-Reactive Protein (<10.0) mg/L 01/04/21 01/05/21 01/05/21 Range/Units 20:02 05:38 06:53 Chloride 110 H (98-107) mmol/L BUN 36 H (9-20) mg/dL Glucose 183 H (74-99) mg/dL POC Glucose (mg/dL) 260 H 190 H (75-99) mg/dL Calcium 8.3 L (8.4-10.2) mg/dL Lactate Dehydrogenase 955 H (313-618) U/L C-Reactive Protein 45.3 H (<10.0) mg/L Microbiology - Last 24 Hours (Table) 01/02/21 15:18 Blood Culture Gram Stain - Final Blood Blood Culture - Final Methicillin resist S. aureus 01/02/21 13:30 Gram Stain - Final Sputum Sputum Culture - Final 01/04/21 03:30 Blood Culture - Preliminary Blood No Growth after 24 hours 01/03/21 05:23 Blood Culture Gram Stain - Preliminary Blood Blood Culture - Preliminary Presumptive MRSA 01/03/21 11:50 Blood Culture Gram Stain - Preliminary Blood Blood Culture - Preliminary Presumptive MRSA 01/01/21 08:06 Blood Culture Gram Stain - Final Blood Blood Culture - Final Methicillin resist S. aureus 01/03/21 05:23 Blood Culture - Final Blood 01/03/21 11:50 Blood Culture - Final Blood Assessment and Plan Plan: 1 acute hypoxic respiratory failure, currently on 2 L of oxygen by nasal cannula, and the respiratory failure is essentially due to combination of CHF exacerbation and covid 19 related pneumonia, currently the patient is on Decadron. Overall pulmonary status is stable. Signs of any significant rest or distress and the patient continues to be on 2 L of oxygen by nasal cannula. 2 acute covid 19 related pneumonia currently on Decadron and this to a combination of vitamin C, zinc and vitamin D. Superimposed pneumonia is likely the patient had an elevated pro-calcitonin level and the patient is currently on vancomycin. Sputum has not resulted yet. Meanwhile the patient had MRSA in his blood, source is not clear, could be pneumonia. Strongly suspect an intravascular infection/cardiac abscess, valvular infection because of the persistent bacteremia. The most recent blood culture from 01/03/2021 was positive for MRSA. The follow-up blood culture from 01/04/2010 1 is still pending. 3 CHF with impaired left ventricular function and systolic heart failure with an ejection fraction of 20-25%. The patient was taken off diuretics due to an acute kidney injury. The patient was also off losartan and off dobutamine. 4 acute kidney injury, recovered and the patient has a normal renal function for now 5 large bowel ileus, please refer to the most recent CAT scan of the abdomen and the patient was given an enema with adequate bowel movements. General surgeries on the case ,colonoscopy today Reveals no abnormalities. The patient is passing flatus and bowel movement activity 6 coronary artery disease, post non-STEMI, post cardiac catheterization with a patent GAYLE to LAD and patent previous stent inserted stents 7 new-onset atrial fibrillation, rate controlled on amiodarone and metoprolol and the patient is on long-term articulation with Eliquis, and correlation will be restarted post colonoscopy 8 iron deficiency anemia 9 Diabetes mellitus type 2, currently off metformin due to acute kidney injury 10 hypertension 11 hyperlipidemia 12 thrombocytopenia, recovered 13 MRSA in the blood, exact source is not clear. Rule out MRSA sepsis/bacteremia. Repeat blood cultures are being sent. Continue vancomycin for now. There is persistent bacteremia even the blood cultures from yesterday on 01/03/2021 are positive. Strongly suspect endovascular infection. Doubt this bacteremia is all resulting from a pneumonia. His pulmonary status is stable. JOHN is recommended. Plan MRI of the lumbar spine was noted. There is multilevel degenerative changes and abdominal narrowing and spondylosis. No evidence of any abscess. Continue Lasix 40 mg IV every 12 hours Continue anticoagulation with Eliquis Continue metoprolol, amiodarone and Eliquis for long-term anticoagulation vancomycin regarding his MRSA septicemia set of blood cultures from 01/03/2021 were still positive, and the repeat cultures from 01/04/2021 is still pending I would support the need for a JOHN Wean down the FiO2 as the patient is currently on 2 L by nasal cannula colonoscopy was completed and the patient has no significant abdominal distention today's evaluation. He is passing flatus above with activity We'll continue to follow
[2021-01-05 11:46] LABS: Glucose,Whole Blood 297 mg/dL (75-99)
--- NOTE | 2021-01-05 12:08 | P.PN ---
Subjective Progress Note Date: 01/05/21 Patient is doing fairly well today. No acute events overnight. He is not diuresing well. Urine output is not documented accurately as patient is wearing a diaper. Objective - Vital Signs Vital signs: Vital Signs Temp 99.3 F 01/05/21 09:09 Pulse 81 01/05/21 09:09 Resp 22 01/05/21 09:09 BP 141/83 01/05/21 09:09 Pulse Ox 94 L 01/05/21 09:09 Intake & Output 01/04/21 01/05/21 01/05/21 18:59 06:59 18:59 Intake Total 1420 200 Output Total 453 225 500 Balance 967 -25 -500 Weight 95.2 kg 97 kg Intake: IV 120 0 Normal saline 20 0 Intake, IV Titration 300 Amount DAPTOmycin 550 mg In 50 Sodium Chloride 0.9% 50 ml @ 100 mls/hr IVPB Q24H [facility] Rx#:[id number] Vancomycin 1,500 mg In 250 Sodium Chloride 0.9% 250 ml @ 125 mls/hr IVPB Q24HR [facility] Rx#:[id number] Oral 1000 200 Output: Urine 450 225 500 Stool 3 Other: Voiding Method Urinal Urinal # Voids 4 # Bowel Movements 1 - Exam General: The patient is awake and alert, in no distress Eye: there is normal conjunctiva bilaterally. Neck: The neck is supple, there is no JVD. Cardiovascular: Normal S1-S2, no S3-S4, no murmurs. Respiratory: Lungs clear to auscultation bilaterally Gastrointestinal: Abdomen is soft, nontender Musculoskeletal: There is +3 edema up to the midshin Neurological:. Speech is normal. Skin: Skin is warm and dry - Labs CBC & Chem 7: 01/03/21 05:23 01/05/21 05:38 Labs: Abnormal Lab Results - Last 24 Hours (Table) 01/04/21 01/04/21 01/04/21 Range/Units 17:45 17:47 20:02 Chloride (98-107) mmol/L BUN (9-20) mg/dL Glucose (74-99) mg/dL POC Glucose (mg/dL) 315 H 288 H 260 H (75-99) mg/dL Calcium (8.4-10.2) mg/dL Lactate Dehydrogenase (313-618) U/L C-Reactive Protein (<10.0) mg/L 01/05/21 01/05/21 01/05/21 Range/Units 05:38 06:53 11:37 Chloride 110 H (98-107) mmol/L BUN 36 H (9-20) mg/dL Glucose 183 H (74-99) mg/dL POC Glucose (mg/dL) 190 H 297 H (75-99) mg/dL Calcium 8.3 L (8.4-10.2) mg/dL Lactate Dehydrogenase 955 H (313-618) U/L C-Reactive Protein 45.3 H (<10.0) mg/L Microbiology - Last 24 Hours (Table) 01/02/21 15:18 Blood Culture Gram Stain - Final Blood Blood Culture - Final Methicillin resist S. aureus 01/02/21 13:30 Gram Stain - Final Sputum Sputum Culture - Final 01/04/21 03:30 Blood Culture - Preliminary Blood No Growth after 24 hours 01/03/21 05:23 Blood Culture Gram Stain - Preliminary Blood Blood Culture - Preliminary Presumptive MRSA 01/03/21 11:50 Blood Culture Gram Stain - Preliminary Blood Blood Culture - Preliminary Presumptive MRSA 01/01/21 08:06 Blood Culture Gram Stain - Final Blood Blood Culture - Final Methicillin resist S. aureus Assessment and Plan Assessment: Patient is a 70-year-old male with a past medical history of coronary artery disease with history of CABG in 1999, diabetes mellitus type 2, hypertension, and dyslipidemia who presented to the emergency room with shortness of breath. He was subsequently found to have an acute exacerbation of systolic congestive heart failure. He was tachypneic and hypoxic on presentation. He was started on IV heparin due to an elevated troponin. He was started on Lasix and admitted. Cardiology was consulted who agreed with continuing Lasix and IV heparin. He had some optimal diuresis and therefore his Lasix was increased to 80 mg every 8 hours. Due to his low ejection fraction of 20-25% which was newly discovered plan was for cardiac catheterization, this was completed on 12/23 his stent were found to be patent LAD was widely open, with no additional intervention required. He was noted to have worsening renal function and his lisinopril was discontinued. He was transitioned off of heparin drip and onto Eliquis. He was also started on dobutamine. He did go into A. fib and was started on IV amiodarone and then transitioned to oral amiodarone. He was noted to have worsening renal function was seen by nephrology on 12/23. They agreed with continuing dobutamine drip and maintaining a systolic blood pressure greater than 110. On the evening of 12/23 patient seen in follow going to the bathroom and was found to be unresponsive with possible loss of pulses. CPR was initiated and after 1 round of CPR ROSC was noted, concern for possible vasovagal episode. He was awake and alert and did not require intubation. He was transferred to the ICU in critical care was consulted. There was some concern of possible seizure activity versus true cardiac arrest. Head CT was completed which showed no acute process, EEG was normal. His transitioned off of dobutamine on 12/24. He developed abdominal distension, nausea, and abdominal pain on 12/[address] demonstrated large bowel ileus. He did have an enema which resulted in liquid bowel movement and he had one large formed BM the morning of 12/26, the rest were liquid. His renal function was slowly improving and he was kept on lasix. He started having multiple liquid bowel movements. He continued to have some liquid bowel movements but was tolerating a diet. Overnight on 12/29 the patient started spiking fevers at approximately 8 PM. He experienced respiratory distress and was noted to be hypoxemic. CXR demonstrated patchy perihilar infiltrates and COVID testing came back positive. He required BiPap for O2 support he was transferred to the ICU. Pulmonary was reconsulted. He was noted to have high procalcitonin and was started on Zosyn. He then became nauseated and surgery made him NPO and ordered dulcolax. + blood culture and pos sible MRSA on 12/30 started on vanco. Covid-19 pneumonitis with acute hypoxic respiratory failure - Pulm recs - Decadron day #7 - Follow inflammatory labs - vit C, zinc, vit D - possible bacterial pneumonia with elevated procalcitonin, patient received Zosyn for 4 days and received vancomycin for 6 days. Currently on daptomycin started 01/04 MRSA bacteremia -Persistent for 5 days with blood culture positive on 12/30-25 Blood culture from 01/04 negative to date -Repeat blood culture today - Received several vancomycin for 6 days and currently on daptomycin started on 01/04 - Exact source unclear possibly underlying pneumonia. I consulted infectious disease for further evaluation. Patient does not have any lines or open wounds. MRI of the lumbar spine with no evidence of discitis or any obvious source. Cardiology consulted to perform a JOHN that they did not think it's necessary as the patient echocardiogram was done 2 days ago was a good study and did not show any evidence of endocarditis or vegetation. I would strongly advocate for a JOHN and will discuss further with cardiology Acute exacerbation of systolic congestive heart failure with ejection fraction 20-25% -Cardiology recommendations appreciated -Strict I's and O's, daily weights -Lopressor, losartan on hold due to LULÚ -Required dobutamine during this admission -I would continue IV Lasix 40 mg twice daily LULÚ, worsening: cardiorenal with component of contrast induced nephropathy, metabolic acidosis - nephrology recs - hold losartan -Off fluids -On oral bicarb large bowel ileus - Improving clinically. Seen and evaluated by general surgery. Underwent colonoscopy showing colon polyp and segmental edema involving the sigmoid colon New-onset Paroxysmal A. fib -Started on IV amiodarone and then transitioned to oral amiodarone -Eliquis, renal dose adjusted. Non-STEMI with history of coronary artery disease and CABG -Cath with patent GAYLE to LAD and prior stents, no intervention needed -Continue with Plavix, Lipitor, Imdur, Lopressor Iron deficiency anemia -Follow CBC -No indication for transfusion at this point in time. -Recommend colonoscopy as outpatient in light of ileus, frequent use of imodium at home, and iron deficiency Diabetes mellitus type 2 - off metformin - SSI - follow BS - A1C 6 Hypertension - controlled - Continue with metoprolol - follow BP Dyslipidemia - Statin Hypomagnesemia, resolved thrombocytopenia, resolved Cardiac event possible syncope vs cardiac arrest Hypokalemia, resolved DVT prophylaxis: Cara Discussed with: patient, nursing Anticipated discharge:undetermined Anticipated discharge place: undetermined A total of 35 minutes was spent on the care of this complex patient more than 50% of the time was spent in counseling and care coordination.
[2021-01-05] MEDS: FERROUS SULFATE 325 MG TAB PO SCH (12:16)
[2021-01-05] MEDS ORDERED: SODIUM CHLORIDE 0.9% 1,000 ML IV ONE (14:48)
--- NOTE | 2021-01-05 15:21 | P.PN ---
Subjective Progress Note Date: 01/05/21 CHIEF COMPLAINT: Colonic distention HISTORY OF PRESENT ILLNESS: The patient is a 70 year old male with acute on chronic congestive heart failure, chronic anticoagulation, multiple cardiopulmonary arrest, recent diagnosis coronavirus who had ileus and abnormal computed tomography scan for sigmoid stricture. Then a colonoscopy without findings of neoplasm however had focal edema of the sigmoid colon. He had been started on regular diet yesterday. He is tolerating diet. He is passing flatus having bowel movements. He has been transferred from intensive care unit to the floor. He is on oxygen by nasal cannula He is snacking on sugary foods. He has loose stools. No abdominal pain. Denies distention. REVIEW OF ORGAN SYSTEMS: No fevers or chills. No reports of abdominal pain. He has intermittent cough. PHYSICAL EXAM: VITALS: Reviewed CONSTITUTIONAL: Well developed and in no acute distress. EYES: Conjuctivae without sclera icterus. Extraocular movements grossly intact. HEAD, EARS, NOSE, THROAT: Moist buccal mucosa. Head is atraumatic, normocephalic. Hears conversational speech. No nasal drainage. Wears glasses. NECK: No thyroidomegaly. RESPIRATORY: Non-labored respirations and equal bilateral excursions. CARDIOVASCULAR: Iregular rate and rhythm. ABDOMEN: No peritonitis. Nontender. Nondistended. MUSCULOSKELETAL: No clubbing. No cyanosis. SKIN: Well perfused with good skin turgor. NEUROLOGIC: Cranial nerves II through XII grossly intact. Sensation upper and extremities intact. No focal or lateralizing signs. PSYCH: Appropriate affect. Alert and oriented to person, place and time. Displays appropriate insight. CLINCAL LABS: Reviewed. No new CBC. Potassium up to 3.6. Creatinine improving from 1.18 to 1.05 ASSESSMENT: 1. Abdominal distention with large bowel dilation, persistent 2. Coronary artery disease with history of stent 3. Acute on chronic congestive heart failure 4. History of recent cardiac event requiring cardiopulmonary resuscitation 5. Diabetes type 2, [id number] 6. Hypokalemia 7. Acute on chronic renal injury 8. Anemia 9. Leukopenia, improved. 10. Coronavirus positive serology 11. Functional obstruction due to colonic edema PLAN: 1. Continue with diuretics with special attention to potassium due to persi stent hypokalemia. 2. Otherwise, moderate improvement in the last few days. 3. Hold all laxatives Objective - Vital Signs Vital signs: Vital Signs Temp 99.3 F 01/05/21 09:09 Pulse 81 01/05/21 09:09 Resp 22 01/05/21 09:09 BP 141/83 01/05/21 09:09 Pulse Ox 94 L 01/05/21 09:09 Intake & Output 01/04/21 01/05/21 01/05/21 18:59 06:59 18:59 Intake Total 1420 200 Output Total 453 225 500 Balance 967 -25 -500 Weight 95.2 kg 97 kg Intake: IV 120 0 Normal saline 20 0 Intake, IV Titration 300 Amount DAPTOmycin 550 mg In 50 Sodium Chloride 0.9% 50 ml @ 100 mls/hr IVPB Q24H [facility] Rx#:[id number] Vancomycin 1,500 mg In 250 Sodium Chloride 0.9% 250 ml @ 125 mls/hr IVPB Q24HR [facility] Rx#:[id number] Oral 1000 200 Output: Urine 450 225 500 Stool 3 Other: Voiding Method Urinal Urinal # Voids 4 # Bowel Movements 1 - Labs CBC & Chem 7: 01/03/21 05:23 01/05/21 05:38 Labs: Abnormal Lab Results - Last 24 Hours (Table) 01/04/21 01/04/21 01/04/21 Range/Units 17:45 17:47 20:02 Chloride (98-107) mmol/L BUN (9-20) mg/dL Glucose (74-99) mg/dL POC Glucose (mg/dL) 315 H 288 H 260 H (75-99) mg/dL Calcium (8.4-10.2) mg/dL Lactate Dehydrogenase (313-618) U/L C-Reactive Protein (<10.0) mg/L 01/05/21 01/05/21 01/05/21 Range/Units 05:38 06:53 11:37 Chloride 110 H (98-107) mmol/L BUN 36 H (9-20) mg/dL Glucose 183 H (74-99) mg/dL POC Glucose (mg/dL) 190 H 297 H (75-99) mg/dL Calcium 8.3 L (8.4-10.2) mg/dL Lactate Dehydrogenase 955 H (313-618) U/L C-Reactive Protein 45.3 H (<10.0) mg/L Microbiology - Last 24 Hours (Table) 01/02/21 15:18 Blood Culture Gram Stain - Final Blood Blood Culture - Final Methicillin resist S. aureus 01/02/21 13:30 Gram Stain - Final Sputum Sputum Culture - Final 01/04/21 03:30 Blood Culture - Preliminary Blood No Growth after 24 hours 01/03/21 05:23 Blood Culture Gram Stain - Preliminary Blood Blood Culture - Preliminary Presumptive MRSA 01/03/21 11:50 Blood Culture Gram Stain - Preliminary Blood Blood Culture - Preliminary Presumptive MRSA 01/01/21 08:06 Blood Culture Gram Stain - Final Blood Blood Culture - Final Methicillin resist S. aureus Assessment and Plan (1) Anemia Current Visit: Yes Status: Acute Code(s): D64.9 - ANEMIA, UNSPECIFIED SNOMED Code(s): 411862651 (2) Leukopenia Current Visit: Yes Status: Acute Code(s): D72.819 - DECREASED WHITE BLOOD CELL COUNT, UNSPECIFIED SNOMED Code(s): 62933353 (3) Acute on chronic renal insufficiency Current Visit: Yes Status: Acute Code(s): N28.9 - DISORDER OF KIDNEY AND URETER, UNSPECIFIED; N18.9 - CHRONIC KIDNEY DISEASE, UNSPECIFIED SNOMED Code(s): 151212692 (4) CHF (congestive heart failure) Current Visit: Yes Status: Acute Code(s): I50.9 - HEART FAILURE, UNSPECIFIED SNOMED Code(s): 95054120 (5) Cardiopulmonary arrest Current Visit: Yes Status: Acute Code(s): I46.9 - CARDIAC ARREST, CAUSE UNSPECIFIED SNOMED Code(s): 633037876 (6) Elevated troponin Current Visit: Yes Status: Acute Code(s): R77.8 - OTHER SPECIFIED ABNORMALITIES OF PLASMA PROTEINS SNOMED Code(s): 423770027 (7) Hypokalemia Current Visit: Yes Status: Acute Code(s): E87.6 - HYPOKALEMIA SNOMED Code(s): 57565080 (8) Ileus Current Visit: Yes Status: Acute Code(s): K56.7 - ILEUS, UNSPECIFIED SNOMED Code(s): 643325363
[2021-01-05] MEDS: HYDROcodone/APAP 5-325MG 1 EACH TAB PO PRN (15:59)
[2021-01-05 16:18] LABS: Glucose,Whole Blood 254 mg/dL (75-99)
--- NOTE | 2021-01-05 18:06 | PN ---
PROGRESS NOTE DATE OF SERVICE: 01/05/2021 REASON FOR FOLLOWUP: MRSA bacteremia. INTERVAL HISTORY: Patient is currently afebrile. The patient is feeling better. He is breathing comfortably. Patient denies having any chest pain. No shortness of breath. Occasional cough. No abdominal pain and low back pain has improved. PHYSICAL EXAMINATION: Blood pressure is 153/80 with a pulse of 95, temperature 98.8. He is 97% on 3 L nasal cannula. General description is an elderly male lying in bed in no distress. Respiratory system: Unlabored breathing, clear to auscultation anteriorly. Heart S1, S2. Regular rate and rhythm. Abdomen soft, no tenderness. LABS: BUN of 36 and creatinine 1.05. DIAGNOSTIC IMPRESSION AND PLAN: Patient with MRSA bacteremia persistent, possible endovascular deep source. The patient MRI of the lumbosacral spine came back negative. JOHN was requested. Cardiology recommended against it. We will obtain a WBC scan. Antibiotic has been adjusted to daptomycin yesterday. Will continue with daily blood cultures to document clearance of bacteremia. Continue supportive care. MMODL / IJN: [id number] /
[2021-01-05 19:49] LABS: Glucose,Whole Blood 261 mg/dL (75-99)
[2021-01-06] MEDS: HYDROcodone/APAP 5-325MG 1 EACH TAB PO PRN ×4 (05:43→22:23)
[2021-01-06 06:53] LABS: Glucose,Whole Blood 137 mg/dL (75-99)
[2021-01-06] MEDS: bisacodyL 10 MG SUPP RECTAL SCH (07:58)
[2021-01-06] MEDS: CHOLECALCIFEROL 25 MCG (1000 IU) TABLET PO SCH (08:07)
[2021-01-06] MEDS: METOPROLOL TARTRATE 25 MG TAB PO SCH ×2 (08:07→19:39)
[2021-01-06] MEDS: SODIUM BICARBONATE TAB 650 MG TAB PO SCH ×3 (08:07→19:40)
[2021-01-06] MEDS: CLOPIDOGREL 75 MG TAB PO SCH (08:07)
[2021-01-06] MEDS: AMIODARONE 200 MG TAB PO SCH ×2 (08:07→19:39)
[2021-01-06] MEDS: dexAMETHasone 2 MG TAB PO SCH (08:08)
[2021-01-06] MEDS: ASCORBIC ACID 500 MG TAB PO SCH (08:08)
[2021-01-06] MEDS: APIXABAN 5 MG TAB PO SCH ×2 (08:08→19:40)
[2021-01-06] MEDS: allopurinoL 100 MG TAB PO SCH (08:08)
[2021-01-06] MEDS: PANTOPRAZOLE 40 MG TABLET PO SCH (08:08)
[2021-01-06] MEDS: INSULIN ASPART (NovoLOG) 100 UNIT/ML VIAL SQ SCH ×4 (08:08→20:52)
[2021-01-06] MEDS: ISOSORBIDE MONONITRATE ER 30 MG TAB.ER.24H PO SCH (08:08)
[2021-01-06] MEDS: TAMSULOSIN 0.4 MG CAP.ER.24H PO SCH ×2 (08:08→19:39)
[2021-01-06] MEDS: ZINC SULFATE 220 MG CAP PO SCH (08:08)
[2021-01-06] MEDS: INSULIN DETEMIR (LEVEMIR) 100 UNIT/ML SYR SQ SCH (08:09)
[2021-01-06] MEDS: SIMETHICONE 40 MG/0.6 ML DROPS 2,000 MG/30 ML BOTTLE PO SCH ×4 (08:09→19:40)
[2021-01-06] MEDS: FUROSEMIDE 10 MG/ML 4 ML VIAL IV SCH (08:16)
[2021-01-06 08:17] LABS: African American GFR (CKD) 83 (>60 ml/min/1.73 sqM); Anion Gap 7 mmol/L; Blood Urea Nitrogen 32 mg/dL (9-20); Calcium 8.1 mg/dL (8.4-10.2); Carbon Dioxide 25 mmol/L (22-30); Chloride 108 mmol/L (98-107); Glucose 122 mg/dL (74-99); Magnesium 1.8 mg/dL (1.6-2.3); Non-African American GFR(CKD) 72 (>60 ml/min/1.73 sqM); Potassium 3.5 mmol/L (3.5-5.1); Sodium 140 mmol/L (137-145)
--- NOTE | 2021-01-06 10:00 | P.PN ---
Subjective Progress Note Date: 01/06/21 Principal diagnosis: This is a 70-year-old male seen in consultation because of acute kidney injury from Covid with pneumonia. Additionally had MRSA bacteremia. He is slowly impr oving although remained short of breath. He has significant cardiomyopathy with ejection fraction of 20-25%, atrial fibrillation. No nausea vomiting diarrhea, his appetite remains low though Is on Lasix 40 mg by mouth twice a day - History of Present Illness This is a 70-year-old male seen in consultation because of acute kidney injury and chronic kidney disease on 12/23/2020 Is known with diabetes for several years, no neuropathy or retinopathy reported. His review his creatinine has been 1.3. He was admitted with shortness of breath. Known with with past medical history significant for coronary artery disease with history of CABG in year 1999 and subsequent stent placement most recently in May 2019 that presented to the emergency room shortness of breath. He underwent cardiac catheterization yesterday 12/22/2020. Echocardiogram shows ejection fraction is 20%. Objective - Vital Signs Vital signs: Vital Signs Temp 98.1 F 01/06/21 09:34 Pulse 94 01/06/21 09:34 Resp 24 01/06/21 09:34 BP 143/85 01/06/21 09:34 Pulse Ox 88 L 01/06/21 09:34 Intake & Output 01/05/21 01/06/21 01/06/21 18:59 06:59 18:59 Intake Total 1250 300 Output Total 500 201 Balance 750 99 Weight 97.5 kg Intake: Intake, IV Titration 1050 Amount DAPTOmycin 550 mg In 50 Sodium Chloride 0.9% 50 ml @ 100 mls/hr IVPB Q24H [facility] Rx#:[id number] Sodium Chloride 0.9% 1, 1000 000 ml @ 999 mls/hr IV . Q1H1M [facility] Rx#:[id number] Oral 200 300 Output: Urine 500 200 Stool 1 Other: Voiding Method Urinal # Voids 3 # Bowel Movements 1 because of COVID, he was examined from the door. He is on nasal cannula oxygen. Is awake alert oriented. - Labs CBC & Chem 7: 01/03/21 05:23 01/06/21 07:39 Labs: Abnormal Lab Results - Last 24 Hours (Table) 01/05/21 01/05/21 01/05/21 Range/Units 11:37 16:17 19:48 Chloride (98-107) mmol/L BUN (9-20) mg/dL Glucose (74-99) mg/dL POC Glucose (mg/dL) 297 H 254 H 261 H (75-99) mg/dL Calcium (8.4-10.2) mg/dL Troponin I (0.000-0.034) ng/mL 01/06/21 01/06/21 01/06/21 Range/Units 06:52 07:39 07:39 Chloride 108 H (98-107) mmol/L BUN 32 H (9-20) mg/dL Glucose 122 H (74-99) mg/dL POC Glucose (mg/dL) 137 H (75-99) mg/dL Calcium 8.1 L (8.4-10.2) mg/dL Troponin I 0.060 H* (0.000-0.034) ng/mL Microbiology - Last 24 Hours (Table) 01/04/21 03:30 Blood Culture - Preliminary Blood No Growth after 48 hours 01/05/21 05:38 Blood Culture - Final Blood 01/03/21 05:23 Blood Culture Gram Stain - Final Blood Blood Culture - Final Methicillin resist S. aureus 01/03/21 11:50 Blood Culture Gram Stain - Final Blood Blood Culture - Final Methicillin resist S. aureus 01/02/21 15:18 Blood Culture Gram Stain - Final Blood Blood Culture - Final Methicillin resist S. aureus 01/02/21 13:30 Gram Stain - Final Sputum Sputum Culture - Final Assessment and Plan Assessment: Impression 1. Acute kidney injury likely from the cardiac cath and dye but also element of cardiorenal syndrome with ejection fraction being 20%,additionally Pneumonia. Creatinine is down to normal at 1.06. 2. Chronic kidney disease, stage III likely diabetic nephropathy baseline creatinine 1.3. Urinalysis shows 2+ proteinuria on 12/24/2020. Possibility of renovascular disease is considered because of the coronary artery disease 3. Diabetes mellitus, with 2+ proteinuria . 4. Severe coronary artery disease status post CABG and subsequent stent 2018, heart catheterization yesterday the 2020 no intervention. Ejection fraction is 20%. 5. Anemia hemoglobin is 10.7 at target for chronic kidney disease. 6. Slightly high blood pressure, improved on IV Lasix 7. MRSA bacteremia, infectious diseases on the case. Source is unclear. JOHN was not done, cardiology is on the case. Recommendation 1. patient should be considered for discharge therefore stop the IV Lasix, start torsemide 40 mg a day. 2. Also will hopefully improve his blood pressure with more diuresis 3. Watch creatinine urine output blood pressure closely
[2021-01-06] MEDS: TORSEMIDE 20 MG TAB PO SCH (10:28)
[2021-01-06 11:31] LABS: Glucose,Whole Blood 145 mg/dL (75-99)
[2021-01-06] MEDS: FERROUS SULFATE 325 MG TAB PO SCH (12:02)
--- NOTE | 2021-01-06 12:14 | P.PN ---
Subjective Progress Note Date: 01/06/21 Patient is awake and alert. He appeared more short of breath today. He is still on 3 L of oxygen via nasal cannula. Blood culture from yesterday returned positive for MRSA. Objective - Vital Signs Vital signs: Vital Signs Temp 98.1 F 01/06/21 09:34 Pulse 94 01/06/21 09:34 Resp 24 01/06/21 09:34 BP 143/85 01/06/21 09:34 Pulse Ox 88 L 01/06/21 09:34 Intake & Output 01/05/21 01/06/21 01/06/21 18:59 06:59 18:59 Intake Total 1250 300 Output Total 500 201 Balance 750 99 Weight 97.5 kg Intake: Intake, IV Titration 1050 Amount DAPTOmycin 550 mg In 50 Sodium Chloride 0.9% 50 ml @ 100 mls/hr IVPB Q24H [facility] Rx#:[id number] Sodium Chloride 0.9% 1, 1000 000 ml @ 999 mls/hr IV . Q1H1M ONE Rx#:[id number] Oral 200 300 Output: Urine 500 200 Stool 1 Other: Voiding Method Urinal # Voids 3 # Bowel Movements 1 - Exam General: The patient is awake and alert, in no distress Eye: there is normal conjunctiva bilaterally. Neck: The neck is supple, there is no JVD. Cardiovascular: Normal S1-S2, no S3-S4, no murmurs. Respiratory: Lungs clear to auscultation bilaterally Gastrointestinal: Abdomen is soft, nontender Musculoskeletal: There is +3 edema up to the midshin Neurological:. Speech is normal. Skin: Skin is warm and dry - Labs CBC & Chem 7: 01/03/21 05:23 01/06/21 07:39 Labs: Abnormal Lab Results - Last 24 Hours (Table) 01/05/21 01/05/21 01/06/21 Range/Units 16:17 19:48 06:52 Chloride (98-107) mmol/L BUN (9-20) mg/dL Glucose (74-99) mg/dL POC Glucose (mg/dL) 254 H 261 H 137 H (75-99) mg/dL Calcium (8.4-10.2) mg/dL Troponin I (0.000-0.034) ng/mL 01/06/21 01/06/21 01/06/21 Range/Units 07:39 07:39 11:28 Chloride 108 H (98-107) mmol/L BUN 32 H (9-20) mg/dL Glucose 122 H (74-99) mg/dL POC Glucose (mg/dL) 145 H (75-99) mg/dL Calcium 8.1 L (8.4-10.2) mg/dL Troponin I 0.060 H* (0.000-0.034) ng/mL Microbiology - Last 24 Hours (Table) 01/03/21 05:23 Blood Culture Gram Stain - Final Blood Blood Culture - Final Methicillin resist S. aureus 01/03/21 11:50 Blood Culture Gram Stain - Final Blood Blood Culture - Final Methicillin resist S. aureus 01/02/21 15:18 Blood Culture Gram Stain - Final Blood Blood Culture - Final Methicillin resist S. aureus 01/05/21 05:38 Blood Culture Gram Stain - Preliminary Blood Blood Culture - Preliminary Presumptive MRSA 01/04/21 03:30 Blood Culture - Preliminary Blood No Growth after 48 hours 01/05/21 05:38 Blood Culture - Final Blood 01/02/21 13:30 Gram Stain - Final Sputum Sputum Culture - Final Assessment and Plan Assessment: Patient is a 70-year-old male with a past medical history of coronary artery disease with history of CABG in 1999, diabetes mellitus type 2, hypertension, and dyslipidemia who presented to the emergency room with shortness of breath. He was subsequently found to have an acute exacerbation of systolic congestive heart failure. He was tachypneic and hypoxic on presentation. He was started on IV heparin due to an elevated troponin. He was started on Lasix and admitted. Cardiology was consulted who agreed with continuing Lasix and IV heparin. He had some optimal diuresis and therefore his Lasix was increased to 80 mg every 8 hours. Due to his low ejection fraction of 20-25% which was newly discovered plan was for cardiac catheterization, this was completed on 12/23 his stent were found to be patent LAD was widely open, with no additional intervention required. He was noted to have worsening renal function and his lisinopril was discontinued. He was transitioned off of heparin drip and onto Eliquis. He was also started on dobutamine. He did go into A. fib and was started on IV amiodarone and then transitioned to oral amiodarone. He was noted to have worsening renal function was seen by nephrology on 12/23. They agreed with continuing dobutamine drip and maintaining a systolic blood pressure greater than 110. On the evening of 12/23 patient seen in follow going to the bathroom and was found to be unresponsive with possible loss of pulses. CPR was initiated and after 1 round of CPR ROSC was noted, concern for possible vasovagal episode. He was awake and alert and did not require intubation. He was transferred to the ICU in critical care was consulted. There was some concern of possible seizure activity versus true cardiac arrest. Head CT was completed which showed no acute process, EEG was normal. His transitioned off of dobutamine on 12/24. He developed abdominal distension, nausea, and abdominal pain on 12/[address] demonstrated large bowel ileus. He did have an enema which resulted in liquid bowel movement and he had one large formed BM the morning of 12/26, the rest were liquid. His renal function was slowly improving and he was kept on lasix. He started having multiple liquid bowel movements. He continued to have some liquid bowel movements but was tolerating a diet. Overnight on 12/29 the patient started spiking fevers at approximately 8 PM. He experienced respiratory distress and was noted to be hypoxemic. CXR demonstrated patchy perihilar infiltrates and COVID testing came back positive. He required BiPap for O2 support he was transferred to the ICU. Pulmonary was reconsulted. He was noted to have high procalcitonin and was started on Zosyn. He then became nauseated and surgery made him NPO and ordered dulcolax. + blood culture and possible MRSA on 12/30 started on vanco. Covid-19 pneumonitis with acute hypoxic respiratory failure - Pulm recs - Decadron day #8 - Follow inflammatory labs - vit C, zinc, vit D - possible bacterial pneumonia with elevated procalcitonin, patient received Zosyn for 4 days and received vancomycin for 6 days. Currently on daptomycin started 01/04 MRSA bacteremia -Persistent for 5 days with blood culture positive on 12/30- then once negative on 01/04 but turned positive again on 01/05 -Repeat blood culture today - Received several vancomycin for 6 days and currently on daptomycin started on 01/04 - Exact source unclear possibly underlying pneumonia. I consulted infectious disease for further evaluation. Patient does not have any lines or open wounds. MRI of the lumbar spine with no evidence of discitis or any obvious source. Cardiology consulted to perform a JOHN that they did not think it's necessary as the patient echocardiogram was done 2 days ago was a good study and did not show any evidence of endocarditis or vegetation. I would strongly advocate for a JOHN and will discuss further with cardiology Acute exacerbation of systolic congestive heart failure with ejection fraction 20-25% -Cardiology recommendations appreciated -Strict I's and O's, daily weights -Lopressor, losartan on hold due to LULÚ -Required dobutamine during this admission -Improved with IV Lasix and currently transitioned to torsemide per nephrology recommendation LULÚ: cardiorenal with component of contrast induced nephropathy, metabolic acidosis - nephrology recs - hold losartan -Off fluids -On oral bicarb large bowel ileus - Improving clinically. Seen and evaluated by general surgery. Underwent colo noscopy showing colon polyp and segmental edema involving the sigmoid colon New-onset Paroxysmal A. fib -Started on IV amiodarone and then transitioned to oral amiodarone -Eliquis, renal dose adjusted. Non-STEMI with history of coronary artery disease and CABG -Cath with patent GAYLE to LAD and prior stents, no intervention needed -Continue with Plavix, Lipitor, Imdur, Lopressor Iron deficiency anemia -Follow CBC -No indication for transfusion at this point in time. -Recommend colonoscopy as outpatient in light of ileus, frequent use of imodium at home, and iron deficiency Diabetes mellitus type 2 - off metformin - SSI - follow BS - A1C 6 Hypertension - controlled - Continue with metoprolol - follow BP Dyslipidemia - Statin Hypomagnesemia, resolved thrombocytopenia, resolved Cardiac event possible syncope vs cardiac arrest Hypokalemia, resolved DVT prophylaxis: Cara Discussed with: patient, nursing Anticipated discharge:undetermined Anticipated discharge place: undetermined A total of 35 minutes was spent on the care of this complex patient more than 50% of the time was spent in counseling and care coordination.
--- NOTE | 2021-01-06 12:35 | P.PN ---
Subjective Progress Note Date: 01/06/21 CHIEF COMPLAINT: Colonic distention HISTORY OF PRESENT ILLNESS: The patient is a 70 year old male with acute on chronic congestive heart failure, chronic anticoagulation, multiple cardiopulmonary arrest, recent diagnosis coronavirus and focal segmental edema causing functional intermittent bowel obstruction. He is doing well. Patient being treated for MSSA bacteremia. He is tolerating his diet. He prefers desert. He is passing moderate flatus. REVIEW OF ORGAN SYSTEMS: No fevers or chills. No reports of abdominal pain. PHYSICAL EXAM: VITALS: Reviewed CONSTITUTIONAL: Well developed and in no acute distress. EYES: Conjuctivae without sclera icterus. Extraocular movements grossly intact. HEAD, EARS, NOSE, THROAT: Moist buccal mucosa. Head is atraumatic, normocephalic. Hears conversational speech. No nasal drainage. Wears glasses. NECK: No thyroidomegaly. RESPIRATORY: Non-labored respirations and equal bilateral excursions. CARDIOVASCULAR: Iregular rate and rhythm. ABDOMEN: No peritonitis. Nontender. Nondistended. MUSCULOSKELETAL: No clubbing. No cyanosis. SKIN: Well perfused with good skin turgor. NEUROLOGIC: Cranial nerves II through XII grossly intact. Sensation upper and extremities intact. No focal or lateralizing signs. PSYCH: Appropriate affect. Alert and oriented to person, place and time. Displays appropriate insight. CLINCAL LABS: Reviewed. Creatinine normal 1.06. ASSESSMENT: 1. Abdominal distention with large bowel dilation, persistent 2. Coronary artery disease with history of stent 3. Acute on chronic congestive heart failure 4. History of recent cardiac event requiring cardiopulmonary resuscitation 5. Diabetes type 2, [id number] 6. Hypokalemia 7. Acute on chronic renal injury 8. Anemia 9. Leukopenia, improved. 10. Coronavirus positive serology 11. Functional obstruction due to colonic edema 12. MSSA bacteremia PLAN: 1. At this time, diet as tolerated. 2. Continue IV antibiotics for MSSA bacteremia. 3. Also recommend generous diuretics due to global anasarca which is improving. Objective - Vital Signs Vital signs: Vital Signs Temp 98.1 F 01/06/21 09:34 Pulse 94 01/06/21 09:34 Resp 24 01/06/21 09:34 BP 143/85 01/06/21 09:34 Pulse Ox 88 L 01/06/21 09:34 Intake & Output 01/05/21 01/06/21 01/06/21 18:59 06:59 18:59 Intake Total 1250 300 Output Total 500 201 Balance 750 99 Weight 97.5 kg Intake: Intake, IV Titration 1050 Amount DAPTOmycin 550 mg In 50 Sodium Chloride 0.9% 50 ml @ 100 mls/hr IVPB Q24H [facility] Rx#:[id number] Sodium Chloride 0.9% 1, 1000 000 ml @ 999 mls/hr IV . Q1H1M [facility] Rx#:[id number] Oral 200 300 Output: Urine 500 200 Stool 1 Other: Voiding Method Urinal # Voids 3 # Bowel Movements 1 - Labs CBC & Chem 7: 01/03/21 05:23 01/06/21 07:39 Labs: Abnormal Lab Results - Last 24 Hours (Table) 01/05/21 01/05/21 01/05/21 Range/Units 11:37 16:17 19:48 Chloride (98-107) mmol/L BUN (9-20) mg/dL Glucose (74-99) mg/dL POC Glucose (mg/dL) 297 H 254 H 261 H (75-99) mg/dL Calcium (8.4-10.2) mg/dL Troponin I (0.000-0.034) ng/mL 01/06/21 01/06/21 01/06/21 Range/Units 06:52 07:39 07:39 Chloride 108 H (98-107) mmol/L BUN 32 H (9-20) mg/dL Glucose 122 H (74-99) mg/dL POC Glucose (mg/dL) 137 H (75-99) mg/dL Calcium 8.1 L (8.4-10.2) mg/dL Troponin I 0.060 H* (0.000-0.034) ng/mL Microbiology - Last 24 Hours (Table) 01/05/21 05:38 Blood Culture Gram Stain - Preliminary Blood Blood Culture - Preliminary Presumptive MRSA 01/04/21 03:30 Blood Culture - Preliminary Blood No Growth after 48 hours 01/05/21 05:38 Blood Culture - Final Blood 01/03/21 05:23 Blood Culture Gram Stain - Final Blood Blood Culture - Final Methicillin resist S. aureus 01/03/21 11:50 Blood Culture Gram Stain - Final Blood Blood Culture - Final Methicillin resist S. aureus 01/02/21 15:18 Blood Culture Gram Stain - Final Blood Blood Culture - Final Methicillin resist S. aureus 01/02/21 13:30 Gram Stain - Final Sputum Sputum Culture - Final Assessment and Plan (1) Anemia Current Visit: Yes Status: Acute Code(s): D64.9 - ANEMIA, UNSPECIFIED SNOMED Code(s): 296249005 (2) Leukopenia Current Visit: Yes Status: Acute Code(s): D72.819 - DECREASED WHITE BLOOD CELL COUNT, UNSPECIFIED SNOMED Code(s): 46414797 (3) Acute on chronic renal insufficiency Current Visit: Yes Status: Acute Code(s): N28.9 - DISORDER OF KIDNEY AND URETER, UNSPECIFIED; N18.9 - CHRONIC KIDNEY DISEASE, UNSPECIFIED SNOMED Code(s): 419924784 (4) CHF (congestive heart failure) Current Visit: Yes Status: Acute Code(s): I50.9 - HEART FAILURE, UNSPECIFIED SNOMED Code(s): 85696991 (5) Cardiopulmonary arrest Current Visit: Yes Status: Acute Code(s): I46.9 - CARDIAC ARREST, CAUSE UNSPECIFIED SNOMED Code(s): 766000577 (6) Elevated troponin Current Visit: Yes Status: Acute Code(s): R77.8 - OTHER SPECIFIED ABNORMALITIES OF PLASMA PROTEINS SNOMED Code(s): 412465449 (7) Hypokalemia Current Visit: Yes Status: Acute Code(s): E87.6 - HYPOKALEMIA SNOMED Code(s): 03238723 (8) Ileus Current Visit: Yes Status: Acute Code(s): K56.7 - ILEUS, UNSPECIFIED SNOMED Code(s): 998729815 (9) Anasarca Current Visit: Yes Status: Acute Code(s): R60.1 - GENERALIZED EDEMA SNOMED Code(s): 609600925
--- NOTE | 2021-01-06 13:13 | XR ---
EXAMINATION TYPE: XR chest 1V portable DATE OF EXAM: 01/06/2021 COMPARISON: 01/04/2021 HISTORY: Covid 19 TECHNIQUE: Single frontal view of the chest is obtained. FINDINGS: There is diffuse heterogeneous interstitial and airspace opacity in both lungs with slight interval worsening compared to the prior study. There is no pleural effusion or pneumothorax. Heart size is normal. The osseous structures are intact . Impression: mild interval worsening in the acute diffuse inflammatory process within the lungs.
--- NOTE | 2021-01-06 13:14 | P.PN ---
Subjective Progress Note Date: 01/06/21 12/31/2020, patient is being seen in follow-up in the intensive care unit. The patient the patient is an acute hypoxic respiratory failure due to a combination of the congestion heart failure and coronavirus/Covid 19 related pneumonia. Note that the patient has CHF on the patient also has impaired left ventricular function with an ejection fraction of 20-25% and the patient is post cardiac catheterization and coronary stent placed earlier was noted to be normal and patent and no intervention was performed. The patient also is post brief cardiac arrest with PEA requiring CPR and return of spontaneous circulation occurred on 12/23/2020. Note that the patient's computed tomography scan of the head that was done showed no abnormalities an EEG was also normal. During the course of her treatment here in the hospital, the patient also developed an ileus with secondary abdominal distention and nausea and emesis and the CAT scan of the abdomen that was done on 12/25/2020 showed large bowel ileus. The patient has was given an enema which resulted in to a liquid bowel movement and subsequently the patient phoned 1 large bowel movement and the rest was essentially liquids. The patient is known to have CAD, previous bypass surgery, ischemic cardiomyopathy, diabetes mellitus, and she fibrillation which is a new onset in addition to hypertension and hyperlipidemia and history of colonic ileu s. The patient currently is in intensive care unit. The patient is on high flow oxygen 10 L per minute nasal cannula to maintain a saturation above 90%. The was dropped to Chest x-ray showing diffuse breath and pulmonary infiltrates. The patient is being treated with a combination of Decadron which is currently being given at a dose of 6 minute grams IV every 24 hours in addition to routine vitamin supplements for Covid 19 related pneumonia. At the same time, the patient is on broad-spectrum antibiotics with a combination of Zosyn and vancomycin. The antibiotic coverage essentially empiric as the patient has an elevated pro-calcitonin level. She has developed an acute kidney injury in the creatinine is up to 2.1 from a baseline of 1.32 at time of admission. This creatinine rises was from yesterday and based on that the patient on no diuretics. This acute kidney injury was thought to be related to a various factors including diuretics and contrast and heart failure. Based on the evolving acute kidney injury, the patient was taken off the diuretics. The patient is also in atrial fibrillation. The patient on amiodarone. The patient is on long-term and to coagulation with Eliquis. Creatinine today is up to 2.48 and the patient has staph aureus On 01/01/2021, the patient is being seen for a follow-up. The patient is quite comfortable on 3 L by nasal cannula. Repeat chest x-ray was done and it showed no major interval change compared to yesterday. Meanwhile, the patient is still in the intensive care unit and he is being treated for all these comorbidities. In terms of his respiratory status, the patient is still on Decadron 6 mg daily. His inflammatory markers show an LDH of 810 with a CRP of 164 which is down compared to yesterday. He did have staph aureus in the blood which is presumptively staph aureus. Due to concern of his underlying renal fa ilure, I stopped the vancomycin which probably has to be restarted back again. He is also on Zosyn. His pro-calcitonin level was as high as 8.8. A serum vancomycin level is not available at this point in time. Note that the patient also developed an acute kidney injury. Creatinine is at 2.5 which is slightly higher compared to yesterday. Serum bicarb is at 17 and the BUN is a 61. The patient's cardiac rhythm is still atrial fibrillation which is controlled for now. Abdominal ileus is still present as the patient's abdomen is slightly distended and patient is having liquid bowel movements. No nausea. No emesis. He is tolerating no direct for now and the patient is currently nothing by mouth. The abdominal film from yesterday showed persistence of ileus and distention of the large bowel. No abdominal pain at this point in time. As of his atrial fibrillation, the patient is on a combination of metoprolol 25 twice a day and amiodarone and the patient is on Eliquis 2.5 mg by mouth twice a day. His rate is currently controlled. His heart rate is in the mid 80s. 01/02/2021 the patient is being seen for a follow-up. In terms of his pulmonary status, the patient remains on oxygen at 2 L per minute nasal cannula. As mentioned earlier, the patient has a Covid 19 related pneumonia and the patient remains on Decadron 6 mg by mouth daily. In terms of his inflammatory markers, the levels are still pending for now and they have been ordered. Meanwhile, the patient has positive blood culture with MRSA. There are at least 3 the positive blood cultures of last dose being on 12/31/2020 and the patient remains on vancomycin. The patient is also on empiric antibiotic coverage with IV Zosyn. Follow calcitonin level has been elevated at 23 consistent with underlying sep sis with staph aureus. The vancomycin trough was 19.7 from this morning. Vancomycin dosing adjustments is being done by pharmacy. White cell count 7.6. D-dimer is at 1.7. Creatinine is improving started around 2.1. The chest x-ray from today is showing cardiomegaly with stable bilateral pulmonary infiltrates and I will say they perihilar infiltrates have improved compared to earlier chest x-rays. In terms of his ileus, the patient is tolerating full liquid diet and he is requesting for more fluids. The patient remains in atrial fibrillation. He has cardiomyopathy with an ejection fraction of 20-25%. His rate is controlled for now with a combination of metoprolol 25 mg by mouth twice a day and amiodarone 400 mg by mouth twice a day and he is also on long-term anticoagulation with Eliquis 2.5 mg by mouth twice a day. Function continues to improve. Neck fluid balance over the past 24 hours is negative for 16 mL. He is on no diuretics for now and the Lasix and placed on hold bases underlying renal failure. 01/03/2021, the patient is persistently bacteremic with MRSA. I think this is a main ongoing issue along with his Covid 19 related pneumonia, acute kidney injury, and abdominal ileus. The blood culture from yesterday came back again positive for MRSA and the patient remains on vancomycin. I'm not absolutely sure of the source of the infection. Unlikely to be related to MRSA pneumonia. Consider endovascular infection. Echocardiogram that was done during this current admission. Days back showed no evidence of any valvular vegetation. Remains on vancomycin. The chest x-ray f showed no major abnormalities. No evidence of any significant consolidation and the findings are essentially the same compared to yesterday's film. The patient's only on 2 L of oxygen by nasal cannula. Antibiotic coverage with Zosyn and vancomycin. His white cell count today that 7.3 and the patient is afebrile. I'm also noticing improvement in his renal function and the creatinine is down to 1.5 and the diuretics has been on hold. Potassium level needs to be replaced. His LDH level is down to 850 and the CRP is down to 53 and the patient remains on Decadron. The pro- calcitonin level is still quite elevated and the level came up to 23 and this is consistent with his MRSA bacteremia/sepsis. The patient has a vancomycin trough of 12.8. He remains in atrial fibrillation. He has a poor ejection fraction of 20-25%. His fluid balance over the past 24 hours has been in the order of +1.1 L. Abdomen is still distended. The patient is having liquidy stool. The abdomen is tympanic. The plan is to do a colonoscopy. The patient has taken follow-up prep with [facility]. 01/04/2021, the patient is on 2 L of oxygen by nasal cannula. He underwent his colonoscopy this morning it is ongoing ileus and the patient was found to have no major abnormalities. He was found to have some colonic polyps. 4 report is pending for now. The patient otherwise is not having any significant respiratory distress. Renal function continues to improve in the creatinine is down to 1.1. His chest x-ray from today is still pending. The blood cultures is still showing persistent bacteremia with the blood culture from 01/02/2021 was still positive for MRSA and a subsequent blood cultures from 01/03/2021 are positive for gram-positive cocci. As such, the patient is still bacteremic. He did have MRSA in his blood. He remains on vancomycin. The trough is 12.8 from yesterday. ID is on the case. No plans for JOHN by cardiology despite this ongoing bacteremia. As of his Covid 19 infection, the patient remains on Decadron 6 mg and he will complete a total of 10 day course. I make sure that they follow-up chest x-ray is obtained from today. 01/05/2021 I'm seeing the patient for the follow-up. He is currently out of the intensive care unit and is currently on the medical floor. He remains on 2 L of oxygen by nasal cannula. No signs of any significant respiratory distress. Active issues for now are Covid 19 related pneumonia, ileus which is improved an d ongoing septicemia/bacteremia with MRSA. The last blood culture from 01/04/2021 is not showing any growth yet it's early. Prior to that, his cultures from 01/03/2021 were again positive for MRSA. The patient remains on vancomycin. His vancomycin trough level is at 12.8 from 01/03/2021 and pharmacy is adjusting the dose of vancomycin. His white cell count today is at pending and the rest of the electrolytes including his renal function is stable with a creatinine of 1.0 with a BUN of 36 and a sodium of 140. He is back on diuretics and is currently taking Lasix 40 mg IV every 12 hours. He has chronic atrial fibrillation. He remains on anticoagulation with Eliquis. No other significant events otherwise for now. He is tolerating diet 01/06/2021, not to my surprise, the patient's blood cultures came back positive again for MRSA. He remains on vancomycin. I'm not sure what is the plan for this patient in terms of infectious disease and cardiology, I feel that the patient may benefit from a JOHN for diagnostic purposes. He was on vancomycin and he was switched to daptomycin by infectious disease.. He is afebrile. He is quite debilitated. He is receiving Lasix and he is in a negative fluid balance for now. He was slightly more short of breath and he was placed on 3 L of oxygen by nasal cannula and his current pulse ox is around 89-90%. As mentioned, the likelihood of this patient having a MRSA pneumonia is extremely unlikely. We'll need to look for any endovascular infection causing this persistent bacteremia with MRSA. MRI of the lumbar spine was done and showed no evidence of any abscesses. A repeat chest x-ray was done today. The patient continues to have interstitial infiltrates bilaterally mainly in the peripheries either from CHF versus Covid 19 related pneumonia as both of these cases Presents with a similar chest x-ray finding. He remains on long-term anticoagulation with Eliquis. He is also on Decadron 6 mg by mouth daily. He was started on Dapto Objective - Vital Signs Vital signs: Vital Signs Temp 98.1 F 01/06/21 09:34 Pulse 94 01/06/21 09:34 Resp 24 01/06/21 09:34 BP 143/85 01/06/21 09:34 Pulse Ox 88 L 01/06/21 09:34 Intake & Output 01/05/21 01/06/21 01/06/21 18:59 06:59 18:59 Intake Total 1250 300 Output Total 500 201 Balance 750 99 Weight 97.5 kg Intake: Intake, IV Titration 1050 Amount DAPTOmycin 550 mg In 50 Sodium Chloride 0.9% 50 ml @ 100 mls/hr IVPB Q24H [facility] Rx#:[id number] Sodium Chloride 0.9% 1, 1000 000 ml @ 999 mls/hr IV . Q1H1M [facility] Rx#:[id number] Oral 200 300 Output: Urine 500 200 Stool 1 Other: Voiding Method Urinal # Voids 3 # Bowel Movements 1 - Exam General: ill appearing, mild distress, appears at stated age, currently on 3 L of oxygen by nasal cannula Derm: warm, dry, multiple areas of ecchymosis Head: Head exam was generally normal. There was no scleral icterus or corneal arcus. Mucous membranes were moist. Eyes: EOMI, no lid lag, anicteric sclera Mouth: no lip lesion, mucus membranes dry Cardiovascular: The patient is currently in an atrial fibrillation with S1S2 irreg wth grade 3 ejection murmur Lungs: High pitched wheeze bilateral, no rhonchi, no rales , patient is also having tach is midline bases bilaterally. Abdominal: soft, + high pitched bowel sounds, nontender to palpation, no guarding, no appreciable organomegaly Ext: no gross muscle atrophy, 2+ edema b/l LE, no contractures Neuro: Neurologically, the patient is awake and alert and the patient does not have any focal neurological deficit. Cranial nerves are essentially intact. Psych: fatigued but awakes to speak, oriented, appropriate affect - Labs CBC & Chem 7: 01/03/21 05:23 01/06/21 07:39 Labs: Abnormal Lab Results - Last 24 Hours (Table) 01/05/21 01/05/21 01/06/21 Range/Units 16:17 19:48 06:52 Chloride (98-107) mmol/L BUN (9-20) mg/dL Glucose (74-99) mg/dL POC Glucose (mg/dL) 254 H 261 H 137 H (75-99) mg/dL Calcium (8.4-10.2) mg/dL Troponin I (0.000-0.034) ng/mL 01/06/21 01/06/21 01/06/21 Range/Units 07:39 07:39 11:28 Chloride 108 H (98-107) mmol/L BUN 32 H (9-20) mg/dL Glucose 122 H (74-99) mg/dL POC Glucose (mg/dL) 145 H (75-99) mg/dL Calcium 8.1 L (8.4-10.2) mg/dL Troponin I 0.060 H* (0.000-0.034) ng/mL Microbiology - Last 24 Hours (Table) 01/03/21 05:23 Blood Culture Gram Stain - Final Blood Blood Culture - Final Methicillin resist S. aureus 01/03/21 11:50 Blood Culture Gram Stain - Final Blood Blood Culture - Final Methicillin resist S. aureus 01/02/21 15:18 Blood Culture Gram Stain - Final Blood Blood Culture - Final Methicillin resist S. aureus 01/05/21 05:38 Blood Culture Gram Stain - Preliminary Blood Blood Culture - Preliminary Presumptive MRSA 01/04/21 03:30 Blood Culture - Preliminary Blood No Growth after 48 hours 01/05/21 05:38 Blood Culture - Final Blood 01/02/21 13:30 Gram Stain - Final Sputum Sputum Culture - Final Assessment and Plan Plan: 1 acute hypoxic respiratory failure, currently on 3 L of oxygen by nasal cannula, and the respiratory failure is essentially due to combination of CHF exacerbation and covid 19 related pneumonia, currently the patient is on Decadron. Overall pulmonary status is stable. I worsened oxygenation. Chest x-ray is still showing persistent bilateral pulmonary infiltrates with peripheral distribution more consistent with Covid 19. Still on Decadron. 2 acute covid 19 related pneumonia currently on Decadron and this to a combination of vitamin C, zinc and vitamin D. Superimposed pneumonia is likely the patient had an elevated pro-calcitonin level due to his bacteremia and sepsis with MRSA. Nevertheless, a superinfection involving the lung is felt to be less likely. 3 CHF with impaired left ventricular function and systolic heart failure with an ejection fraction of 20-25%. The patient was taken off diuretics due to an acute kidney injury. The patient was also off losartan and off dobutamine. 4 acute kidney injury, recovered and the patient has a normal renal function for now 5 large bowel ileus, please refer to the most recent CAT scan of the abdomen and the patient was given an enema with adequate bowel movements. General surgeries on the case ,colonoscopy today Reveals no abnormalities. The patient is passing flatus and bowel movement activity 6 coronary artery disease, post non-STEMI, post cardiac catheterization with a patent GAYLE to LAD and patent previous stent inserted stents 7 new-onset atrial fibrillation, rate controlled on amiodarone and metoprolol and the patient is on long-term articulation with Eliquis, and correlation will be restarted post colonoscopy 8 iron deficiency anemia 9 Diabetes mellitus type 2, currently off metformin due to acute kidney injury 10 hypertension 11 hyperlipidemia 12 thrombocytopenia, recovered 13 MRSA in the blood, exact source is not clear. Rule out MRSA sepsis/bacteremia. Repeat blood cultures are being sent. There is persistent bacteremia even the blood cultures from yesterday on 01/03/2021 are positive. Strongly suspect endovascular infection. Doubt this bacteremia is all resulting from a pneumonia. His pulmonary status is stable. JOHN is recommended. She has been switched to daptomycin due to failure of vancomycin treatment in this patient. He was still persistently bacteremic. Plan MRI of the lumbar spine was noted. There is multilevel degenerative changes and abdominal narrowing and spondylosis. No evidence of any abscess. IV Lasix has been discontinued and the patient is currently on Demadex 40 mg daily Continue anticoagulation with Eliquis Continue metoprolol, amiodarone and Eliquis for long-term anticoagulation vancomycin regarding his MRSA septicemia set of blood cultures from 01/03/2021 were still positive, and the repeat cultures from 01/04/2021 was again positive. ID is on the case. I would support the need for a JOHN Wean down the FiO2 colonoscopy was completed and the patient has no significant abdominal distention today's evaluation. He is passing flatus above with activity We'll continue to follow
[2021-01-06] MEDS: LIDOCAINE 5% PATCH TOPICAL SCH (13:43)
[2021-01-06 16:43] LABS: Glucose,Whole Blood 379 mg/dL (75-99)
[2021-01-06] MEDS ORDERED: INSULIN ASPART (NovoLOG) 100 UNIT/ML VIAL SQ ONE (17:30)
[2021-01-06 19:36] LABS: Glucose,Whole Blood 327 mg/dL (75-99)
[2021-01-06] MEDS ORDERED: ALPRAZolam 0.25 MG TAB PO STA (20:21)
[2021-01-07 01:21] LABS: Allen Test Performed? Yes
[2021-01-07 01:22] LABS: ABG Base Excess 0.8 mmol/L; ABG HCO3 25 mmol/L (21-25); ABG PCO2 37 mmHg (35-45); ABG PH 7.44 (7.35-7.45); ABG PO2 68 mmHg (83-108); ABG TCO2 26 mmol/L (19-24)
[2021-01-07] MEDS: ALPRAZolam 0.25 MG TAB PO PRN ×2 (03:22→13:06)
[2021-01-07] MEDS: ACETAMINOPHEN TAB 325 MG TAB PO PRN (03:49)
--- NOTE | 2021-01-07 04:54 | PN ---
PROGRESS NOTE DATE OF SERVICE: 01/06/2021 REASON FOR FOLLOWUP: MRSA bacteremia. INTERVAL HISTORY: Patient is currently afebrile, has been complaining of shortness of breath. The patient denies having any chest pain. Occasional cough. No nausea, no vomiting. No abdominal pain or diarrhea. PHYSICAL EXAMINATION: Blood pressure 151/99 with a pulse of 115. Temperature 98.5. He is 92% on 3 L nasal cannula. General description is a middle aged male lying in bed in no distress. Respiratory system: Unlabored breathing, coarse breath sounds bilaterally. HEART: S1, S2. Regular rate and rhythm. ABDOMEN: Soft, no tenderness. EXTREMITIES: No edema of the feet. LABS: The patient blood cultures from yesterday positive as well. DIAGNOSTIC IMPRESSION AND PLAN: Patient with persistent MRSA bacteremia concern for endovascular source. JOHN will be requested as well as a WBC scan. Plan at this time is to adjust dose of daptomycin to 8 mg/kg in view of the persistent bacteremia. Daily blood cultures to document clearance of his bacteremia and monitor clinical course closely. Overall prognosis remains to be guarded. MMODL / IJN: [id number] /
[2021-01-07] MEDS ORDERED: LORazepam 0.5 MG TAB PO STA (06:22)
[2021-01-07 07:53] LABS: Glucose,Whole Blood 141 mg/dL (75-99)
[2021-01-07] MEDS: HYDROcodone/APAP 5-325MG 1 EACH TAB PO PRN ×3 (08:06→21:01)
[2021-01-07] MEDS: INSULIN DETEMIR (LEVEMIR) 100 UNIT/ML SYR SQ SCH (08:08)
[2021-01-07] MEDS: dexAMETHasone 2 MG TAB PO SCH (08:08)
[2021-01-07] MEDS: INSULIN ASPART (NovoLOG) 100 UNIT/ML VIAL SQ SCH ×4 (08:09→20:46)
[2021-01-07] MEDS: LIDOCAINE 5% PATCH TOPICAL SCH (08:09)
[2021-01-07] MEDS: TORSEMIDE 20 MG TAB PO SCH (08:10)
[2021-01-07] MEDS: allopurinoL 100 MG TAB PO SCH (08:11)
[2021-01-07] MEDS: APIXABAN 5 MG TAB PO SCH ×2 (08:11→20:46)
[2021-01-07] MEDS: METOPROLOL TARTRATE 25 MG TAB PO SCH ×2 (08:11→20:46)
[2021-01-07] MEDS: AMIODARONE 200 MG TAB PO SCH ×2 (08:11→20:46)
[2021-01-07] MEDS: ASCORBIC ACID 500 MG TAB PO SCH (08:12)
[2021-01-07] MEDS: ZINC SULFATE 220 MG CAP PO SCH (08:12)
[2021-01-07] MEDS: CHOLECALCIFEROL 25 MCG (1000 IU) TABLET PO SCH (08:12)
[2021-01-07] MEDS: SODIUM BICARBONATE TAB 650 MG TAB PO SCH ×3 (08:13→20:46)
[2021-01-07] MEDS: CLOPIDOGREL 75 MG TAB PO SCH (08:13)
[2021-01-07] MEDS: PANTOPRAZOLE 40 MG TABLET PO SCH (08:13)
[2021-01-07] MEDS: ISOSORBIDE MONONITRATE ER 30 MG TAB.ER.24H PO SCH (08:13)
[2021-01-07] MEDS: TAMSULOSIN 0.4 MG CAP.ER.24H PO SCH ×2 (08:13→20:46)
[2021-01-07] MEDS: bisacodyL 10 MG SUPP RECTAL SCH (08:14)
[2021-01-07] MEDS: SIMETHICONE 40 MG/0.6 ML DROPS 2,000 MG/30 ML BOTTLE PO SCH ×3 (08:15→23:58)
[2021-01-07] MEDS: ALBUTEROL HFA INHALER INHALATION PRN ×3 (08:57→15:06)
[2021-01-07 09:28] LABS: Anion Gap 8.9 mmol/L (4.00-12.00); BUN/Creat Ratio 35.45 Ratio (12.00-20.00); Calcium 8.2 mg/dL (8.7-10.3); Carbon Dioxide 23.1 mmol/L (21.6-31.8); Non-African American GFR(CKD) 68.1 (60.0-200.0); Potassium 3.7 mmol/L (3.5-5.5)
[2021-01-07] MEDS: DAPTOmycin 750 MG in SODIUM CHLORIDE 0.9% 50 ML IVPB SCH (09:55)
[2021-01-07] MEDS ORDERED: FUROSEMIDE 10 MG/ML 4 ML VIAL IV SCH (10:15)
[2021-01-07 12:16] LABS: Glucose,Whole Blood 235 mg/dL (75-99)
[2021-01-07] MEDS: FERROUS SULFATE 325 MG TAB PO SCH (12:21)
--- NOTE | 2021-01-07 13:05 | P.PN ---
Subjective Progress Note Date: 01/07/21 Principal diagnosis: overall surgically stable Objective - Vital Signs Vital signs: Vital Signs Temp 97.3 F L 01/07/21 10:00 Pulse 108 H 01/07/21 10:00 Resp 20 01/07/21 10:00 BP 148/99 01/07/21 06:00 Pulse Ox 97 01/07/21 10:00 Intake & Output 01/06/21 01/07/21 01/07/21 18:59 06:59 18:59 Intake Total 900 Output Total 550 952 Balance -550 -52 Weight 100 kg Intake: Oral 900 Output: Urine 550 950 Stool 2 Other: Voiding Method Urinal # Voids 2 - Labs CBC & Chem 7: 01/03/21 05:23 01/07/21 05:53 Labs: Abnormal Lab Results - Last 24 Hours (Table) 01/06/21 01/06/21 01/07/21 Range/Units 16:35 19:34 00:57 ABG pO2 68 L (83-108) mmHg ABG Total CO2 26 H (19-24) mmol/L BUN (9.0-27.0) mg/dL BUN/Creatinine Ratio (12.00-20.00) Ratio Glucose (70-110) mg/dL POC Glucose (mg/dL) 379 H 327 H (75-99) mg/dL Calcium (8.7-10.3) mg/dL Procalcitonin (0.02-0.09) ng/mL 01/07/21 01/07/21 01/07/21 Range/Units 05:53 05:53 07:51 ABG pO2 (83-108) mmHg ABG Total CO2 (19-24) mmol/L BUN 39.0 H (9.0-27.0) mg/dL BUN/Creatinine Ratio 35.45 H (12.00-20.00) Ratio Glucose 122 H (70-110) mg/dL POC Glucose (mg/dL) 141 H (75-99) mg/dL Calcium 8.2 L (8.7-10.3) mg/dL Procalcitonin 0.48 H (0.02-0.09) ng/mL 01/07/21 Range/Units 12:15 ABG pO2 (83-108) mmHg ABG Total CO2 (19-24) mmol/L BUN (9.0-27.0) mg/dL BUN/Creatinine Ratio (12.00-20.00) Ratio Glucose (70-110) mg/dL POC Glucose (mg/dL) 235 H (75-99) mg/dL Calcium (8.7-10.3) mg/dL Procalcitonin (0.02-0.09) ng/mL Microbiology - Last 24 Hours (Table) 01/05/21 05:38 Blood Culture Gram Stain - Final Blood Blood Culture - Final Methicillin resist S. aureus 01/04/21 03:30 Blood Culture - Preliminary Blood No Growth after 72 hours 01/06/21 07:39 Blood Culture Gram Stain - Preliminary Blood 01/06/21 07:39 Blood Culture - Final Blood 01/06/21 14:00 Catheter Tip Culture - Preliminary Catheter Tip 01/03/21 05:23 Blood Culture Gram Stain - Final Blood Blood Culture - Final Methicillin resist S. aureus 01/03/21 11:50 Blood Culture Gram Stain - Final Blood Blood Culture - Final Methicillin resist S. aureus 01/02/21 15:18 Blood Culture Gram Stain - Final Blood Blood Culture - Final Methicillin resist S. aureus Assessment and Plan (1) Anemia Current Visit: Yes Status: Acute Code(s): D64.9 - ANEMIA, UNSPECIFIED SNOMED Code(s): 970469419 (2) Leukopenia Current Visit: Yes Status: Acute Code(s): D72.819 - DECREASED WHITE BLOOD CELL COUNT, UNSPECIFIED SNOMED Code(s): 48410883 (3) Acute on chronic renal insufficiency Current Visit: Yes Status: Acute Code(s): N28.9 - DISORDER OF KIDNEY AND URE TER, UNSPECIFIED; N18.9 - CHRONIC KIDNEY DISEASE, UNSPECIFIED SNOMED Code(s): 606585054 (4) CHF (congestive heart failure) Current Visit: Yes Status: Acute Code(s): I50.9 - HEART FAILURE, UNSPECIFIED SNOMED Code(s): 41038951 (5) Cardiopulmonary arrest Current Visit: Yes Status: Acute Code(s): I46.9 - CARDIAC ARREST, CAUSE UNSPECIFIED SNOMED Code(s): 438538435 (6) Elevated troponin Current Visit: Yes Status: Acute Code(s): R77.8 - OTHER SPECIFIED ABNORMALITIES OF PLASMA PROTEINS SNOMED Code(s): 704478781 (7) Hypokalemia Current Visit: Yes Status: Acute Code(s): E87.6 - HYPOKALEMIA SNOMED Code(s): 14427388 (8) Ileus Current Visit: Yes Status: Acute Code(s): K56.7 - ILEUS, UNSPECIFIED SNOMED Code(s): 840575530 (9) Anasarca Current Visit: Yes Status: Acute Code(s): R60.1 - GENERALIZED EDEMA SNOMED Code(s): 761143921
[2021-01-07] MEDS ORDERED: FUROSEMIDE 10 MG/ML 4 ML VIAL IV STA (14:12)
--- NOTE | 2021-01-07 14:24 | P.PN ---
Progress Note - Text Progress Note Date: 01/07/21 today, I spoke to his daughter in law, Aby, over the phone. She is spoken person for the family and patient reported her to make decisions for him in case he is unable to. We discussed his overall condition. I explained to her ongoing multiorgan failure and worsening systolic CHF with EF of 20-25%. We also discussed increased work of breathing this morning. She had a lot of questions about MRSA bacteremia and we discussed no identifiable source of infection at this point. We also discussed goals of care. Patient himself and his family would like everything done possible. Patient is full code. His wishes. He even though he refused to wear BiPAP this morning for comfort. I informed his [id number] with this update and answered all of her questions to her satisfaction. Time spent > 16 minutes
--- NOTE | 2021-01-07 14:28 | P.PN ---
Subjective Progress Note Date: 01/07/21 Patient is complaining of worsening shortness of breath. Chest x-ray this morning shows diffuse inflammatory changes and possible pulmonary edema. Nursing staff has been unable to document urine output as patient is incontinent at times. Diuretics were switched back to IV Lasix this morning by nephrology. Patient reports worsening shortness of breath. O2 sats 97% on a nonrebreather. Objective - Vital Signs Vital signs: Vital Signs Temp 97.3 F L 01/07/21 10:00 Pulse 108 H 01/07/21 10:00 Resp 20 01/07/21 10:00 BP 148/99 01/07/21 06:00 Pulse Ox 97 01/07/21 10:00 Intake & Output 01/06/21 01/07/21 01/07/21 18:59 06:59 18:59 Intake Total 900 Output Total 550 952 Balance -550 -52 Weight 100 kg Intake: Oral 900 Output: Urine 550 950 Stool 2 Other: Voiding Method Urinal # Voids 2 - Exam General: The patient is awake and alert, in no distress Eye: there is normal conjunctiva bilaterally. Neck: The neck is supple, there is no JVD. Cardiovascular: Normal S1-S2, no S3-S4, no murmurs. Respiratory: Lungs clear to auscultation bilaterally Gastrointestinal: Abdomen is soft, nontender Musculoskeletal: There is +3 edema up to the midshin Neurological:. Speech is normal. Skin: Skin is warm and dry - Labs CBC & Chem 7: 01/03/21 05:23 01/07/21 05:53 Labs: Abnormal Lab Results - Last 24 Hours (Table) 01/06/21 01/06/21 01/07/21 Range/Units 16:35 19:34 00:57 ABG pO2 68 L (83-108) mmHg ABG Total CO2 26 H (19-24) mmol/L BUN (9.0-27.0) mg/dL BUN/Creatinine Ratio (12.00-20.00) Ratio Glucose (70-110) mg/dL POC Glucose (mg/dL) 379 H 327 H (75-99) mg/dL Calcium (8.7-10.3) mg/dL Procalcitonin (0.02-0.09) ng/mL 01/07/21 01/07/21 01/07/21 Range/Units 05:53 05:53 07:51 ABG pO2 (83-108) mmHg ABG Total CO2 (19-24) mmol/L BUN 39.0 H (9.0-27.0) mg/dL BUN/Creatinine Ratio 35.45 H (12.00-20.00) Ratio Glucose 122 H (70-110) mg/dL POC Glucose (mg/dL) 141 H (75-99) mg/dL Calcium 8.2 L (8.7-10.3) mg/dL Procalcitonin 0.48 H (0.02-0.09) ng/mL 01/07/21 Range/Units 12:15 ABG pO2 (83-108) mmHg ABG Total CO2 (19-24) mmol/L BUN (9.0-27.0) mg/dL BUN/Creatinine Ratio (12.00-20.00) Ratio Glucose (70-110) mg/dL POC Glucose (mg/dL) 235 H (75-99) mg/dL Calcium (8.7-10.3) mg/dL Procalcitonin (0.02-0.09) ng/mL Microbiology - Last 24 Hours (Table) 01/05/21 05:38 Blood Culture Gram Stain - Final Blood Blood Culture - Final Methicillin resist S. aureus 01/04/21 03:30 Blood Culture - Preliminary Blood No Growth after 72 hours 01/06/21 07:39 Blood Culture Gram Stain - Preliminary Blood 01/06/21 07:39 Blood Culture - Final Blood 01/06/21 14:00 Catheter Tip Culture - Preliminary Catheter Tip 01/03/21 05:23 Blood Culture Gram Stain - Final Blood Blood Culture - Final Methicillin resist S. aureus 01/03/21 11:50 Blood Culture Gram Stain - Final Blood Blood Culture - Final Methicillin resist S. aureus 01/02/21 15:18 Blood Culture Gram Stain - Final Blood Blood Culture - Final Methicillin resist S. aureus Assessment and Plan Assessment: Patient is a 70-year-old male with a past medical history of coronary artery disease with history of CABG in 1999, diabetes mellitus type 2, hypertension, and dyslipidemia who presented to the emergency room with shortness of breath. He was subsequently found to have an acute exacerbation of systolic congestive heart failure. He was tachypneic and hypoxic on presentation. He was started on IV heparin due to an elevated troponin. He was started on Lasix and admitted. Cardiology was consulted who agreed with continuing Lasix and IV heparin. He had some optimal diuresis and therefore his Lasix was increased to 80 mg every 8 hours. Due to his low ejection fraction of 20-25% which was newly discovered plan was for cardiac catheterization, this was completed on 12/23 his stent were found to be patent LAD was widely open, with no additional interven tion required. He was noted to have worsening renal function and his lisinopril was discontinued. He was transitioned off of heparin drip and onto Eliquis. He was also started on dobutamine. He did go into A. fib and was started on IV amiodarone and then transitioned to oral amiodarone. He was noted to have worsening renal function was seen by nephrology on 12/23. They agreed with continuing dobutamine drip and maintaining a systolic blood pressure greater than 110. On the evening of 12/23 patient seen in follow going to the bathroom and was found to be unresponsive with possible loss of pulses. CPR was initiated and after 1 round of CPR ROSC was noted, concern for possible vasovagal episode. He was awake and alert and did not require intubation. He was transferred to the ICU in critical care was consulted. There was some concern of possible seizure activity versus true cardiac arrest. Head CT was completed which showed no acute process, EEG was normal. His transitioned off of dobutamine on 12/24. He developed abdominal distension, nausea, and abdominal pain on 12/[address] demonstrated large bowel ileus. He did have an enema which resulted in liquid bowel movement and he had one large formed BM the morning of 12/26, the rest were liquid. His renal function was slowly improving and he was kept on lasix. He started having multiple liquid bowel movements. He continued to have some liquid bowel movements but was tolerating a diet. Overnight on 12/29 the patient started spiking fevers at approximately 8 PM. He experienced respiratory distress and was noted to be hypoxemic. CXR demonstrated patchy perihilar infiltrates and COVID testing came back positive. He required BiPap for O2 support he was transferred to the ICU. Pulmonary was reconsulted. He was noted to have high procalcitonin and was started on Zosyn. He then became nauseated and surgery made him NPO and ordered dulcolax. + blood culture and possible MRSA on 12/30 started on vanco. Covid-19 pneumonitis with acute hypoxic respiratory failure - Pulm recs - Decadron day #9 - Follow inflammatory labs - vit C, zinc, vit D - possible bacterial pneumonia with elevated procalcitonin, patient received Zosyn for 4 days and received vancomycin for 6 days. Currently on daptomycin started 01/04 MRSA bacteremia -Persistent for 5 days with blood culture positive on 12/30- then once negative on 01/04 but turned positive again on 01/05 -Repeat blood culture and midline tip culture pending from 01/06 - Received several vancomycin for 6 days and currently on daptomycin started on 01/04 - Exact source unclear possibly underlying pneumonia. I consulted infectious disease for further evaluation. Patient does not have any lines or open wounds. MRI of the lumbar spine with no evidence of discitis or any obvious source. Cardiology consulted to perform a JOHN that they did not think it's necessary as the patient echocardiogram was done 2 days ago was a good study and did not show any evidence of endocarditis or vegetation. I would strongly advocate for a JHON by cardiology did not think it's necessary at this time Acute exacerbation of systolic congestive heart failure with ejection fraction 20-25% -We will switch patient to IV Lasix drip. Duckworth catheter for accurate urine output measurement. LULÚ: Resolved cardiorenal with component of contrast induced nephropathy, metabolic acidosis - nephrology recs - hold losartan -Off fluids -On oral bicarb large bowel ileus - Improving clinically. Seen and evaluated by general surgery. Underwent colonoscopy showing colon polyp and segmental edema involving the sigmoid colon New-onset Paroxysmal A. fib -Started on IV amiodarone and then transitioned to oral amiodarone -Eliquis, renal dose adjusted. Non-STEMI with history of coronary artery disease and CABG -Cath with patent GAYLE to LAD and prior stents, no intervention needed -Continue with Plavix, Lipitor, Imdur, Lopressor Iron deficiency anemia -Follow CBC -No indication for transfusion at this point in time. -Recommend colonoscopy as outpatient in light of ileus, frequent use of imodium at home, and iron deficiency Diabetes mellitus type 2 - off metformin - SSI - follow BS - A1C 6 -Started on Levemir for better blood glucose control Hypertension - controlled - Continue with metoprolol - follow BP Dyslipidemia - Statin Hypomagnesemia, resolved thrombocytopenia, resolved Cardiac event possible syncope vs cardiac arrest Hypokalemia, resolved DVT prophylaxis: Nildaquis Discussed with: patient, nursing Anticipated discharge:undetermined Anticipated discharge place: undetermined A total of 35 minutes was spent on the care of this complex patient more than 50% of the time was spent in counseling and care coordination.
--- NOTE | 2021-01-07 14:36 | PN ---
PROGRESS NOTE Patient is seen for followup for acute kidney injury. Patient has COVID-19 pneumonia. He has been transferred out of the ICU. However, according to nursing staff, his oxygen requirement increased significantly overnight. The patient also has had significant edema and was being diuresed, but Lasix was decreased over the last few days. The patient's case is discussed with nursing staff. This morning blood pressure was 148/99, heart rate 107 per minute. He is afebrile. He is on 15 L nasal cannula, which is up from 3 to 5 L yesterday. He has significant edema lower extremities. [employer] N[employer]SE exam grossly intact. LABS: Labs show sodium 135, potassium 3.7, BUN 39, serum creatinine 1.1. ASSESSMENT: 1. Acute kidney injury, currently improved with creatinine at peak at 2.5 mg/dL now at about 1.0-1.1 mg/dL mostly acute tubular necrosis. 2. Volume overload. Resume IV Lasix, first dose now. 3. COVID-19 pneumonia. 4. MRSA bacteremia, status post MRI for possible discitis, which was negative. There is concern for possible endovascular source. A JOHN has been requested. PLAN: Diurese aggressively. Repeat labs in a.m. MMODL / IJN: [id number] /
[2021-01-07] MEDS: FUROSEMIDE 100 MG in SODIUM CHLORIDE 0.9% 90 ML IV SCH (14:49)
--- NOTE | 2021-01-07 16:17 | P.PN ---
Subjective Progress Note Date: 01/07/21 12/31/2020, patient is being seen in follow-up in the intensive care unit. The patient the patient is an acute hypoxic respiratory failure due to a combination of the congestion heart failure and coronavirus/Covid 19 related pneumonia. Note that the patient has CHF on the patient also has impaired left ventricular function with an ejection fraction of 20-25% and the patient is post cardiac catheterization and coronary stent placed earlier was noted to be normal and patent and no intervention was performed. The patient also is post brief cardiac arrest with PEA requiring CPR and return of spontaneous circulation occurred on 12/23/2020. Note that the patient's computed tomography scan of the head that was done showed no abnormalities an EEG was also normal. During the course of her treatment here in the hospital, the patient also developed an ileus with secondary abdominal distention and nausea and emesis and the CAT scan of the abdomen that was done on 12/25/2020 showed large bowel ileus. The patient has was given an enema which resulted in to a liquid bowel movement and subsequently the patient phoned 1 large bowel movement and the rest was essentially liquids. The patient is known to have CAD, previous bypass surgery, ischemic cardiomyopathy, diabetes mellitus, and she fibrillation which is a new onset in addition to hypertension and hyperlipidemia and history of colonic ileu s. The patient currently is in intensive care unit. The patient is on high flow oxygen 10 L per minute nasal cannula to maintain a saturation above 90%. The was dropped to Chest x-ray showing diffuse breath and pulmonary infiltrates. The patient is being treated with a combination of Decadron which is currently being given at a dose of 6 minute grams IV every 24 hours in addition to routine vitamin supplements for Covid 19 related pneumonia. At the same time, the patient is on broad-spectrum antibiotics with a combination of Zosyn and vancomycin. The antibiotic coverage essentially empiric as the patient has an elevated pro-calcitonin level. She has developed an acute kidney injury in the creatinine is up to 2.1 from a baseline of 1.32 at time of admission. This creatinine rises was from yesterday and based on that the patient on no diuretics. This acute kidney injury was thought to be related to a various factors including diuretics and contrast and heart failure. Based on the evolving acute kidney injury, the patient was taken off the diuretics. The patient is also in atrial fibrillation. The patient on amiodarone. The patient is on long-term and to coagulation with Eliquis. Creatinine today is up to 2.48 and the patient has staph aureus On 01/01/2021, the patient is being seen for a follow-up. The patient is quite comfortable on 3 L by nasal cannula. Repeat chest x-ray was done and it showed no major interval change compared to yesterday. Meanwhile, the patient is still in the intensive care unit and he is being treated for all these comorbidities. In terms of his respiratory status, the patient is still on Decadron 6 mg daily. His inflammatory markers show an LDH of 810 with a CRP of 164 which is down compared to yesterday. He did have staph aureus in the blood which is presumptively staph aureus. Due to concern of his underlying renal fa ilure, I stopped the vancomycin which probably has to be restarted back again. He is also on Zosyn. His pro-calcitonin level was as high as 8.8. A serum vancomycin level is not available at this point in time. Note that the patient also developed an acute kidney injury. Creatinine is at 2.5 which is slightly higher compared to yesterday. Serum bicarb is at 17 and the BUN is a 61. The patient's cardiac rhythm is still atrial fibrillation which is controlled for now. Abdominal ileus is still present as the patient's abdomen is slightly distended and patient is having liquid bowel movements. No nausea. No emesis. He is tolerating no direct for now and the patient is currently nothing by mouth. The abdominal film from yesterday showed persistence of ileus and distention of the large bowel. No abdominal pain at this point in time. As of his atrial fibrillation, the patient is on a combination of metoprolol 25 twice a day and amiodarone and the patient is on Eliquis 2.5 mg by mouth twice a day. His rate is currently controlled. His heart rate is in the mid 80s. 01/02/2021 the patient is being seen for a follow-up. In terms of his pulmonary status, the patient remains on oxygen at 2 L per minute nasal cannula. As mentioned earlier, the patient has a Covid 19 related pneumonia and the patient remains on Decadron 6 mg by mouth daily. In terms of his inflammatory markers, the levels are still pending for now and they have been ordered. Meanwhile, the patient has positive blood culture with MRSA. There are at least 3 the positive blood cultures of last dose being on 12/31/2020 and the patient remains on vancomycin. The patient is also on empiric antibiotic coverage with IV Zosyn. Follow calcitonin level has been elevated at 23 consistent with underlying sep sis with staph aureus. The vancomycin trough was 19.7 from this morning. Vancomycin dosing adjustments is being done by pharmacy. White cell count 7.6. D-dimer is at 1.7. Creatinine is improving started around 2.1. The chest x-ray from today is showing cardiomegaly with stable bilateral pulmonary infiltrates and I will say they perihilar infiltrates have improved compared to earlier chest x-rays. In terms of his ileus, the patient is tolerating full liquid diet and he is requesting for more fluids. The patient remains in atrial fibrillation. He has cardiomyopathy with an ejection fraction of 20-25%. His rate is controlled for now with a combination of metoprolol 25 mg by mouth twice a day and amiodarone 400 mg by mouth twice a day and he is also on long-term anticoagulation with Eliquis 2.5 mg by mouth twice a day. Function continues to improve. Neck fluid balance over the past 24 hours is negative for 16 mL. He is on no diuretics for now and the Lasix and placed on hold bases underlying renal failure. 01/03/2021, the patient is persistently bacteremic with MRSA. I think this is a main ongoing issue along with his Covid 19 related pneumonia, acute kidney injury, and abdominal ileus. The blood culture from yesterday came back again positive for MRSA and the patient remains on vancomycin. I'm not absolutely sure of the source of the infection. Unlikely to be related to MRSA pneumonia. Consider endovascular infection. Echocardiogram that was done during this current admission. Days back showed no evidence of any valvular vegetation. Remains on vancomycin. The chest x-ray f showed no major abnormalities. No evidence of any significant consolidation and the findings are essentially the same compared to yesterday's film. The patient's only on 2 L of oxygen by nasal cannula. Antibiotic coverage with Zosyn and vancomycin. His white cell count today that 7.3 and the patient is afebrile. I'm also noticing improvement in his renal function and the creatinine is down to 1.5 and the diuretics has been on hold. Potassium level needs to be replaced. His LDH level is down to 850 and the CRP is down to 53 and the patient remains on Decadron. The pro- calcitonin level is still quite elevated and the level came up to 23 and this is consistent with his MRSA bacteremia/sepsis. The patient has a vancomycin trough of 12.8. He remains in atrial fibrillation. He has a poor ejection fraction of 20-25%. His fluid balance over the past 24 hours has been in the order of +1.1 L. Abdomen is still distended. The patient is having liquidy stool. The abdomen is tympanic. The plan is to do a colonoscopy. The patient has taken follow-up prep with [facility]. 01/04/2021, the patient is on 2 L of oxygen by nasal cannula. He underwent his colonoscopy this morning it is ongoing ileus and the patient was found to have no major abnormalities. He was found to have some colonic polyps. 4 report is pending for now. The patient otherwise is not having any significant respiratory distress. Renal function continues to improve in the creatinine is down to 1.1. His chest x-ray from today is still pending. The blood cultures is still showing persistent bacteremia with the blood culture from 01/02/2021 was still positive for MRSA and a subsequent blood cultures from 01/03/2021 are positive for gram-positive cocci. As such, the patient is still bacteremic. He did have MRSA in his blood. He remains on vancomycin. The trough is 12.8 from yesterday. ID is on the case. No plans for JOHN by cardiology despite this ongoing bacteremia. As of his Covid 19 infection, the patient remains on Decadron 6 mg and he will complete a total of 10 day course. I make sure that they follow-up chest x-ray is obtained from today. 01/05/2021 I'm seeing the patient for the follow-up. He is currently out of the intensive care unit and is currently on the medical floor. He remains on 2 L of oxygen by nasal cannula. No signs of any significant respiratory distress. Active issues for now are Covid 19 related pneumonia, ileus which is improved an d ongoing septicemia/bacteremia with MRSA. The last blood culture from 01/04/2021 is not showing any growth yet it's early. Prior to that, his cultures from 01/03/2021 were again positive for MRSA. The patient remains on vancomycin. His vancomycin trough level is at 12.8 from 01/03/2021 and pharmacy is adjusting the dose of vancomycin. His white cell count today is at pending and the rest of the electrolytes including his renal function is stable with a creatinine of 1.0 with a BUN of 36 and a sodium of 140. He is back on diuretics and is currently taking Lasix 40 mg IV every 12 hours. He has chronic atrial fibrillation. He remains on anticoagulation with Eliquis. No other significant events otherwise for now. He is tolerating diet 01/06/2021, not to my surprise, the patient's blood cultures came back positive again for MRSA. He remains on vancomycin. I'm not sure what is the plan for this patient in terms of infectious disease and cardiology, I feel that the patient may benefit from a JOHN for diagnostic purposes. He was on vancomycin and he was switched to daptomycin by infectious disease.. He is afebrile. He is quite debilitated. He is receiving Lasix and he is in a negative fluid balance for now. He was slightly more short of breath and he was placed on 3 L of oxygen by nasal cannula and his current pulse ox is around 89-90%. As mentioned, the likelihood of this patient having a MRSA pneumonia is extremely unlikely. We'll need to look for any endovascular infection causing this persistent bacteremia with MRSA. MRI of the lumbar spine was done and showed no evidence of any abscesses. A repeat chest x-ray was done today. The patient continues to have interstitial infiltrates bilaterally mainly in the peripheries either from CHF versus Covid 19 related pneumonia as both of these cases Presents with a similar chest x-ray finding. He remains on long-term anticoagulation with Eliquis. He is also on Decadron 6 mg by mouth daily. He was started on Dapto The patient is seen today 01/08/2020 on follow-up on the regular medical floor. He is currently quite restless and short of breath. He is on 15 L high flow nasal cannula plus seen nonrebreather mask. Yesterday's x-ray revealed mild interval worsening in the acute diffuse inflammatory process within the lungs. Arterial blood gases done earlier this morning revealed a pO2 of 68, pCO2 37, pH 7.44 on 100% FiO2. Sodium 135. Potassium 3.7. Creatinine 1.1. Pro-calcitonin 0.48. Blood cultures are positive for MRSA. Patient will need for a JOHN. He is currently on daptomycin. He remains anticoagulated with Eliquis. Ejection fraction is 20-25%. He was given Lasix 40 mg IVP 1. Objective - Vital Signs Vital signs: Vital Signs Temp 98.0 F 01/07/21 14:00 Pulse 80 01/07/21 14:00 Resp 36 H 01/07/21 14:00 BP 133/89 01/07/21 14:00 Pulse Ox 97 01/07/21 14:00 Intake & Output 01/06/21 01/07/21 01/07/21 18:59 06:59 18:59 Intake Total 900 Output Total 550 952 325 Balance -550 -52 -325 Weight 100 kg Intake: Oral 900 Output: Urine 550 950 325 Uretheral (Duckworth) 100 Stool 2 Other: Voiding Method Urinal Indwelling Catheter # Voids 2 - Exam General: 70-year-old gentleman, ill appearing, mild distress, appears older than stated age, currently on 15 L high flow nasal cannula plus a nonrebreather mask Derm: warm, dry, multiple areas of ecchymosis Head: Head exam was generally normal. There was no scleral icterus or corneal arcus. Mucous membranes were moist. Eyes: EOMI, no lid lag, anicteric sclera Mouth: no lip lesion, mucus membranes dry Cardiovascular: The patient is currently in an atrial fibrillation with S1S2 irreg with grade 3 ejection murmur Lungs: High pitched wheeze, crackles in the bilateral posterior bases. Abdominal: soft, + high pitched bowel sounds, nontender to palpation, no guarding, no appreciable organomegaly Ext: no gross muscle atrophy, 2+ edema b/l LE, no contractures Neuro: Neurologically, the patient is awake and alert and the patient does not have any focal neurological deficit. Cranial nerves are essentially intact. Psych: fatigued but awakes to speak, oriented, appropriate affect - Labs CBC & Chem 7: 01/03/21 05:23 01/07/21 05:53 Labs: Abnormal Lab Results - Last 24 Hours (Table) 01/06/21 01/06/21 01/07/21 Range/Units 16:35 19:34 00:57 ABG pO2 68 L (83-108) mmHg ABG Total CO2 26 H (19-24) mmol/L BUN (9.0-27.0) mg/dL BUN/Creatinine Ratio (12.00-20.00) Ratio Glucose (70-110) mg/dL POC Glucose (mg/dL) 379 H 327 H (75-99) mg/dL Calcium (8.7-10.3) mg/dL Procalcitonin (0.02-0.09) ng/mL 01/07/21 01/07/21 01/07/21 Range/Units 05:53 05:53 07:51 ABG pO2 (83-108) mmHg ABG Total CO2 (19-24) mmol/L BUN 39.0 H (9.0-27.0) mg/dL BUN/Creatinine Ratio 35.45 H (12.00-20.00) Ratio Glucose 122 H (70-110) mg/dL POC Glucose (mg/dL) 141 H (75-99) mg/dL Calcium 8.2 L (8.7-10.3) mg/dL Procalcitonin 0.48 H (0.02-0.09) ng/mL 01/07/21 Range/Units 12:15 ABG pO2 (83-108) mmHg ABG Total CO2 (19-24) mmol/L BUN (9.0-27.0) mg/dL BUN/Creatinine Ratio (12.00-20.00) Ratio Glucose (70-110) mg/dL POC Glucose (mg/dL) 235 H (75-99) mg/dL Calcium (8.7-10.3) mg/dL Procalcitonin (0.02-0.09) ng/mL Microbiology - Last 24 Hours (Table) 01/06/21 07:39 Blood Culture Gram Stain - Preliminary Blood 01/05/21 05:38 Blood Culture Gram Stain - Final Blood Blood Culture - Final Methicillin resist S. aureus 01/04/21 03:30 Blood Culture - Preliminary Blood No Growth after 72 hours 01/06/21 07:39 Blood Culture - Final Blood 01/06/21 14:00 Catheter Tip Culture - Preliminary Catheter Tip Assessment and Plan Assessment: 1 acute hypoxic respiratory failure, currently on 15 L high flow nasal cannula plus a nonrebreather mask, and the respiratory failure is essentially due to combination of CHF exacerbation and covid 19 related pneumonia, currently the patient is on Decadron. Chest x-ray is still showing persistent bilateral pulmonary infiltrates with peripheral distribution more consistent with Covid 19. 2 acute covid 19 related pneumonia currently on Decadron and this to a combination of vitamin C, zinc and vitamin D. Superimposed pneumonia is likely the patient had an elevated pro-calcitonin level due to his bacteremia and sepsis with MRSA. Nevertheless, a superinfection involving the lung is felt to be less likely. 3 CHF with impaired left ventricular function and systolic heart failure with an ejection fraction of 20-25%. The patient was taken off diuretics due to an acute kidney injury. The patient was also off losartan and off dobutamine. 4 acute kidney injury, recovered and the patient has a normal renal function for now 5 large bowel ileus, please refer to the most recent CAT scan of the abdomen and the patient was given an enema with adequate bowel movements. General surgeries on the case ,colonoscopy today Reveals no abnormalities. The patient is passing flatus and bowel movement activity 6 coronary artery disease, post non-STEMI, post cardiac catheterization with a patent GAYLE to LAD and patent previous stent inserted stents 7 new-onset atrial fibrillation, rate controlled on amiodarone and metoprolol and the patient is on long-term articulation with Eliquis, and correlation will be restarted post colonoscopy 8 iron deficiency anemia 9 Diabetes mellitus type 2, currently off metformin due to acute kidney injury 10 hypertension 11 hyperlipidemia 12 thrombocytopenia, recovered 13 MRSA in the blood, exact source is not clear. Rule out MRSA sepsi s/bacteremia. Repeat blood cultures are being sent. There is persistent bacteremia even the blood cultures from yesterday on 01/03/2021 are positive. Strongly suspect endovascular infection. Doubt this bacteremia is all resulting from a pneumonia. His pulmonary status is stable. JOHN is recommended. She has been switched to daptomycin due to failure of vancomycin treatment in this patient. He was still persistently bacteremic. Plan The patient was seen and evaluated by Dr. Azar Significant rise in his oxygen requirements Given Lasix 40 mg IV push times one, start a Lasix drip Continued bacteremia, currently on daptomycin JOHN requested by ID service Condition remains guarded Continue to follow I, the cosigning physician, performed a history & physical examination of the patient. Lungs sounds with bilateral end extra wheeze, crackles in the posterior bases. Maintaining good O2 saturations in the 90s on 15 L high flow nasal cannula with a nonrebreather mask. I discussed the assessment and plan of care with my nurse practitioner, Katie Gagnon. I attest to the above note as dictated by her.
[2021-01-07 17:15] LABS: Glucose,Whole Blood 191 mg/dL (75-99)
[2021-01-07 20:06] LABS: Glucose,Whole Blood 219 mg/dL (75-99)
--- NOTE | 2021-01-07 23:31 | PN ---
PROGRESS NOTE DATE OF SERVICE: 01/07/2021 REASON FOR FOLLOWUP: MRSA bacteremia. INTERVAL HISTORY: The patient is currently afebrile. The patient seems to have transferred to the area because of his requirement for high-flow oxygen. The patient denies having any chest pain. He did have a cough with occasional sputum. No nausea, no vomiting, no abdominal pain or diarrhea. PHYSICAL EXAMINATION: Blood pressure 138/96, pulse of 117, temperature 97.8. He is 96% on 15 L high-flow oxygen. General description is an elderly male lying in bed in no distress. RESPIRATORY SYSTEM: Unlabored breathing with decreased intensity of breath sounds. No wheeze. HEART: S1, S2. Regular rate and rhythm. ABDOMEN: Soft. No tenderness. LABS: BUN of 39, creatinine 1.1. Procalcitonin 0.48. Blood cultures repeat remain to be positive. DIAGNOSTIC IMPRESSION AND PLAN: Patient with a methicillin-resistant Staphylococcus aeruginosa bacteremia, persistent, possible endovascular source. JOHN and a WBC scan have been ordered. Antibiotic has been daptomycin. Dose has been adjusted up, with daily monitoring of his blood cultures. Continue supportive care. Prognosis remains guarded. MMODL / IJN: [id number] /
[2021-01-08] MEDS: FUROSEMIDE 100 MG in SODIUM CHLORIDE 0.9% 90 ML IV SCH ×3 (00:15→21:13)
[2021-01-08 06:28] LABS: Glucose,Whole Blood 103 mg/dL (75-99)
[2021-01-08] MEDS: INSULIN ASPART (NovoLOG) 100 UNIT/ML VIAL SQ SCH ×4 (06:29→21:13)
[2021-01-08] MEDS: INSULIN DETEMIR (LEVEMIR) 100 UNIT/ML SYR SQ SCH (06:43)
[2021-01-08] MEDS: PANTOPRAZOLE 40 MG TABLET PO SCH (06:43)
[2021-01-08] MEDS: ALBUTEROL HFA INHALER INHALATION PRN ×2 (07:57→16:13)
[2021-01-08 08:08] LABS: Potassium 3.7 mmol/L (3.5-5.1)
[2021-01-08 08:31] LABS: Anisocytosis Slight; Basophils % (A) 0 %; Eosinophils % (A) 0 %; HCT 32.9 % (39.0-53.0); HGB 10.4 gm/dL (13.0-17.5); Hypochromasia Moderate; Lymphocytes # (A) 0.2 k/uL (1.0-4.8); Lymphocytes % (A) 2 %; MCH 27.6 pg (25.0-35.0); MCHC 31.6 g/dL (31.0-37.0); MCV 87.2 fL (80.0-100.0); Mean Platelet Volume 8.8; Monocytes # (A) 0.2 k/uL (0-1.0); Monocytes % (A) 2 %; Neutrophils # (A) 11.4 k/uL (1.3-7.7); Neutrophils % (A) 96 %; Platelet Count 212 k/uL (150-450); RBC 3.78 m/uL (4.30-5.90); RDW 17.2 % (11.5-15.5); WBC 11.9 k/uL (3.8-10.6)
[2021-01-08] MEDS: bisacodyL 10 MG SUPP RECTAL SCH (08:52)
[2021-01-08] MEDS: SIMETHICONE 40 MG/0.6 ML DROPS 2,000 MG/30 ML BOTTLE PO SCH ×4 (08:53→21:14)
[2021-01-08] MEDS: dexAMETHasone 2 MG TAB PO SCH (09:12)
[2021-01-08] MEDS: SODIUM BICARBONATE TAB 650 MG TAB PO SCH ×3 (09:12→21:13)
[2021-01-08] MEDS: allopurinoL 100 MG TAB PO SCH (09:12)
[2021-01-08] MEDS: AMIODARONE 200 MG TAB PO SCH ×2 (09:12→21:13)
[2021-01-08] MEDS: ISOSORBIDE MONONITRATE ER 30 MG TAB.ER.24H PO SCH (09:13)
[2021-01-08] MEDS: APIXABAN 5 MG TAB PO SCH ×2 (09:13→21:13)
[2021-01-08] MEDS: CLOPIDOGREL 75 MG TAB PO SCH (09:13)
[2021-01-08] MEDS: METOPROLOL TARTRATE 25 MG TAB PO SCH ×2 (09:13→21:13)
[2021-01-08] MEDS: CHOLECALCIFEROL 25 MCG (1000 IU) TABLET PO SCH (09:13)
[2021-01-08] MEDS: ASCORBIC ACID 500 MG TAB PO SCH (09:13)
[2021-01-08] MEDS: ZINC SULFATE 220 MG CAP PO SCH (09:13)
[2021-01-08] MEDS: LIDOCAINE 5% PATCH TOPICAL SCH (09:13)
[2021-01-08] MEDS: TAMSULOSIN 0.4 MG CAP.ER.24H PO SCH ×2 (09:13→21:13)
[2021-01-08] MEDS: HYDROcodone/APAP 5-325MG 1 EACH TAB PO PRN (09:19)
[2021-01-08] MEDS: DAPTOmycin 750 MG in SODIUM CHLORIDE 0.9% 50 ML IVPB SCH (10:58)
--- NOTE | 2021-01-08 11:45 | P.PN ---
Subjective Patient is seen in follow-up for acute kidney injury. He is currently maintained on Lasix drip at 10 mL an hour. Nonoliguric. Has a Duckworth catheter. Renal function stable. Denies chest pain or shortness of breath. Vital signs are stable. General: The patient appeared well nourished and normally developed. HEENT: Head exam is unremarkable. Neck is without jugular venous distension. LUNGS: Breath sounds decreased. HEART: Rate and Rhythm are regular. ABDOMEN: Soft, no distention noted. EXTREMITITES: 2+ edema. Objective - Vital Signs Vital signs: Vital Signs Temp 97.8 F 01/07/21 22:00 Pulse 95 01/08/21 02:00 Resp 20 01/08/21 03:34 BP 131/93 01/08/21 02:00 Pulse Ox 99 01/08/21 02:00 Intake & Output 01/07/21 01/08/21 01/08/21 18:59 06:59 18:59 Intake Total 872.333 100 Output Total 325 875 650 Balance -325 -2.667 -550 Weight 100.5 kg 100.5 kg Intake: Intake, IV Titration 94.333 100 Amount Furosemide 100 mg In 94.333 100 Sodium Chloride 0.9% 90 ml @ 10 MG/HR 10 mls/hr IV .Q10H [facility] Rx#: [id number] Oral 778 Output: Urine 325 875 650 Uretheral (Duckworth) 100 Other: Voiding Method Indwelling Catheter Indwelling Catheter # Bowel Movements 1 - Labs CBC & Chem 7: 01/08/21 07:13 01/08/21 07:13 Labs: Abnormal Lab Results - Last 24 Hours (Table) 01/07/21 01/07/21 01/07/21 Range/Units 12:15 17:11 20:05 WBC (3.8-10.6) k/uL RBC (4.30-5.90) m/uL Hgb (13.0-17.5) gm/dL Hct (39.0-53.0) % RDW (11.5-15.5) % Neutrophils # (1.3-7.7) k/uL Lymphocytes # (1.0-4.8) k/uL BUN (9-20) mg/dL Glucose (74-99) mg/dL POC Glucose (mg/dL) 235 H 191 H 219 H (75-99) mg/dL Calcium (8.4-10.2) mg/dL 01/08/21 01/08/21 01/08/21 Range/Units 06:26 07:13 07:13 WBC 11.9 H (3.8-10.6) k/uL RBC 3.78 L (4.30-5.90) m/uL Hgb 10.4 L (13.0-17.5) gm/dL Hct 32.9 L (39.0-53.0) % RDW 17.2 H (11.5-15.5) % Neutrophils # 11.4 H (1.3-7.7) k/uL Lymphocytes # 0.2 L (1.0-4.8) k/uL BUN 44 H (9-20) mg/dL Glucose 107 H (74-99) mg/dL POC Glucose (mg/dL) 103 H (75-99) mg/dL Calcium 8.0 L (8.4-10.2) mg/dL Microbiology - Last 24 Hours (Table) 01/07/21 05:53 Blood Culture Gram Stain - Preliminary Blood 01/04/21 03:30 Blood Culture - Preliminary Blood No Growth after 96 hours 01/07/21 05:53 Blood Culture - Final Blood 01/06/21 07:39 Blood Culture Gram Stain - Preliminary Blood Blood Culture - Preliminary Presumptive MRSA 01/05/21 05:38 Blood Culture Gram Stain - Final Blood Blood Culture - Final Methicillin resist S. aureus Assessment and Plan Plan: Assessment: 1. Acute kidney injury secondary to ATN secondary to cardiorenal syndrome. Renal function stable. 2. Acute on chronic systolic CHF with ejection fraction of 20%. 3. Chronic kidney disease stage IIIa with baseline creatinine near 1.3. 4. Volume overload. 5. Covid 19 pneumonia. 6. MRSA bacteremia maintained on antibiotics. Infectious disease following. Plan: Maintain Lasix drip. Add metolazone 5 mg once daily. Low-salt diet. Strict is and os. Avoid nephrotoxins. Follow-up JOHN.
[2021-01-08 12:20] LABS: Glucose,Whole Blood 146 mg/dL (75-99)
--- NOTE | 2021-01-08 13:35 | XR ---
EXAMINATION TYPE: XR chest 1V portable DATE OF EXAM: 01/08/2021 Comparison: 01/06/2021 Clinical History: 70-year-old male f/u xray Findings: Median sternotomy wires are present. Heart mildly enlarged. Diffuse interstitial and patchy bilateral airspace opacities especially in the periphery of the lungs may show minimal improvement. No pleural effusion. Impression: Diffuse interstitial opacities and extensive patchy bilateral airspace disease persists but may be mi nimally improved.
[2021-01-08] MEDS: FERROUS SULFATE 325 MG TAB PO SCH (13:38)
[2021-01-08] MEDS: metOLazone 5 MG TAB PO SCH (13:38)
--- NOTE | 2021-01-08 15:08 | P.PN ---
Subjective Progress Note Date: 01/08/21 Patient was getting cleaned this morning when I saw him. I get the chance to observe a small maybe stage I pressure sore on his right buttock. Otherwise patient is doing fairly well. He does not have any specific concerns or complaints. His shortness of breath is about the same compared to yesterday. No acute events overnight. We are finally able to do accurate urine output measurement is 40 catheter was inserted yesterday. Objective - Vital Signs Vital signs: Vital Signs Temp 98.0 F 01/08/21 08:00 Pulse 102 H 01/08/21 12:00 Resp 18 01/08/21 12:00 BP 122/76 01/08/21 12:00 Pulse Ox 97 01/08/21 14:07 Intake & Output 01/07/21 01/08/21 01/08/21 18:59 06:59 18:59 Intake Total 872.333 100 Output Total 325 875 650 Balance -325 -2.667 -550 Weight 100.5 kg 100.5 kg Intake: Intake, IV Titration 94.333 100 Amount Furosemide 100 mg In 94.333 100 Sodium Chloride 0.9% 90 ml @ 10 MG/HR 10 mls/hr IV .Q10H [facility] Rx#: [id number] Oral 778 Output: Urine 325 875 650 Uretheral ([place]) 100 Other: Voiding Method Indwelling Catheter Indwelling Catheter # Bowel Movements 1 - Exam General: The patient is awake and alert, in no distress Eye: there is normal conjunctiva bilaterally. Neck: The neck is supple, there is no JVD. Cardiovascular: Normal S1-S2, no S3-S4, no murmurs. Respiratory: Lungs with crackles bibasilarly Gastrointestinal: Abdomen is soft, nontender Musculoskeletal: There is +3 edema up to the midshin Neurological:. Speech is normal. Skin: Skin is warm and dry - Labs CBC & Chem 7: 01/08/21 07:13 01/08/21 07:13 Labs: Abnormal Lab Results - Last 24 Hours (Table) 01/07/21 01/07/21 01/08/21 Range/Units 17:11 20:05 06:26 WBC (3.8-10.6) k/uL RBC (4.30-5.90) m/uL Hgb (13.0-17.5) gm/dL Hct (39.0-53.0) % RDW (11.5-15.5) % Neutrophils # (1.3-7.7) k/uL Lymphocytes # (1.0-4.8) k/uL BUN (9-20) mg/dL Glucose (74-99) mg/dL POC Glucose (mg/dL) 191 H 219 H 103 H (75-99) mg/dL Calcium (8.4-10.2) mg/dL 01/08/21 01/08/21 01/08/21 Range/Units 07:13 07:13 12:18 WBC 11.9 H (3.8-10.6) k/uL RBC 3.78 L (4.30-5.90) m/uL Hgb 10.4 L (13.0-17.5) gm/dL Hct 32.9 L (39.0-53.0) % RDW 17.2 H (11.5-15.5) % Neutrophils # 11.4 H (1.3-7.7) k/uL Lymphocytes # 0.2 L (1.0-4.8) k/uL BUN 44 H (9-20) mg/dL Glucose 107 H (74-99) mg/dL POC Glucose (mg/dL) 146 H (75-99) mg/dL Calcium 8.0 L (8.4-10.2) mg/dL Microbiology - Last 24 Hours (Table) 01/06/21 14:00 Catheter Tip Culture - Preliminary Catheter Tip Coagulase Negative Staph 01/07/21 05:53 Blood Culture Gram Stain - Preliminary Blood 01/04/21 03:30 Blood Culture - Preliminary Blood No Growth after 96 hours 01/07/21 05:53 Blood Culture - Final Blood 01/06/21 07:39 Blood Culture Gram Stain - Preliminary Blood Blood Culture - Preliminary Presumptive MRSA 01/05/21 05:38 Blood Culture Gram Stain - Final Blood Blood Culture - Final Methicillin resist S. aureus Assessment and Plan Assessment: Patient is a 70-year-old male with a past medical history of coronary artery disease with history of CABG in 1999, diabetes mellitus type 2, hypertension, and dyslipidemia who presented to the emergency room with shortness of breath. He was subsequently found to have an acute exacerbation of systolic congestive heart failure. He was tachypneic and hypoxic on presentation. He was started on IV heparin due to an elevated troponin. He was started on Lasix and admitted. Cardiology was consulted who agreed with continuing Lasix and IV heparin. He had some optimal diuresis and therefore his Lasix was increased to 80 mg every 8 hours. Due to his low ejection fraction of 20-25% which was newly discovered plan was for cardiac catheterization, this was completed on 12/23 his stent were found to be patent LAD was widely open, with no additional intervention required. He was noted to have worsening renal function and his lisinopril was discontinued. He was transitioned off of heparin drip and onto Eliquis. He was also started on dobutamine. He did go into A. fib and was started on IV amiodarone and then transitioned to oral amiodarone. He was noted to have worsening renal function was seen by nephrology on 12/23. They agreed with continuing dobutamine drip and maintaining a systolic blood pressure greater than 110. On the evening of 12/23 patient seen in follow going to the bathroom and was found to be unresponsive with possible loss of pulses. CPR was initiated and after 1 round of CPR ROSC was noted, concern for possible vasovagal episode. He was awake and alert and did not require intubation. He w as transferred to the ICU in critical care was consulted. There was some concern of possible seizure activity versus true cardiac arrest. Head CT was completed which showed no acute process, EEG was normal. His transitioned off of dobutamine on 12/24. He developed abdominal distension, nausea, and abdominal pain on 12/[address] demonstrated large bowel ileus. He did have an enema which resulted in liquid bowel movement and he had one large formed BM the morning of 12/26, the rest were liquid. His renal function was slowly improving and he was kept on lasix. He started having multiple liquid bowel movements. He continued to have some liquid bowel movements but was tolerating a diet. Overnight on 12/29 the patient started spiking fevers at approximately 8 PM. He experienced respiratory distress and was noted to be hypoxemic. CXR demonstrated patchy perihilar infiltrates and COVID testing came back positive. He required BiPap for O2 support he was transferred to the ICU. Pulmonary was reconsulted. He was noted to have high procalcitonin and was started on Zosyn. He then became nauseated and surgery made him NPO and ordered dulcolax. + blood culture and possible MRSA on 12/30 started on vanco. Covid-19 pneumonitis with acute hypoxic respiratory failure - Pulm recs - Decadron day #10 - Follow inflammatory labs - vit C, zinc, vit D - possible bacterial pneumonia with elevated procalcitonin, patient received Zosyn for 4 days and received vancomycin for 6 days. Currently on daptomycin started 01/04 MRSA bacteremia -Persistent with blood culture positive on 12/30- then once negative on 01/04 but turned positive again on 01/05 -Repeat blood culture and midline tip culture from 01/06 (coag negative staph)- midline was inserted after positive MRSA bacteremia - Received vancomycin for 6 days then switched to daptomycin started on 01/04 - Exact source unclear possibly underlying pneumonia. I consulted infectious disease for further evaluation. Patient does not have any lines or open wounds. MRI of the lumbar spine with no evidence of discitis or any obvious source. Cardiology consulted to perform a JOHN that they did not think it's necessary as the patient echocardiogram was done 12/31 was a good study and did not show any evidence of endocarditis or vegetation. Had a prolonged discussion with Dr. Fernández today regarding JOHN. He preferred avoiding a JOHN on a COVID positive patient. We decided to obtain a repeat transthoracic echocardiogram today for further evaluation. Acute exacerbation of systolic congestive heart failure with ejection fraction 20-25% -With evidence of anasarca. Patient received IV Lasix on and off since admission. Started on Lasix drip on 01/07. LULÚ: Resolved cardiorenal with component of contrast induced nephropathy, metabolic acidosis - nephrology recs - hold losartan -On oral bicarb large bowel ileus - Improved clinically. Seen and evaluated by general surgery. Underwent colonoscopy showing colon polyp and segmental edema involving the sigmoid colon New-onset Paroxysmal A. fib -Started on IV amiodarone and then transitioned to oral amiodarone -Eliquis, renal dose adjusted. Non-STEMI with history of coronary artery disease and CABG -Cath with patent GAYLE to LAD and prior stents, no intervention needed -Continue with Plavix, Lipitor, Imdur, Lopressor Iron deficiency anemia -Follow CBC -No indication for transfusion at this point in time. -Recommend colonoscopy as outpatient in light of ileus, frequent use of imodium at home, and iron deficiency Diabetes mellitus type 2 - off metformin - SSI - follow BS - A1C 6 -Started on Levemir for better blood glucose control Hypertension - controlled - Continue with metoprolol - follow BP Dyslipidemia - Statin Hypomagnesemia, resolved thrombocytopenia, resolved Cardiac event possible syncope vs cardiac arrest Hypokalemia, resolved DVT prophylaxis: Cara Discussed with: patient, nursing Anticipated discharge:undetermined Anticipated discharge place: undetermined A total of 35 minutes was spent on the care of this complex patient more than 50% of the time was spent in counseling and care coordination.
--- NOTE | 2021-01-08 15:17 | P.PN ---
Subjective Progress Note Date: 01/08/21 CHIEF COMPLAINT: Colonic distention HISTORY OF PRESENT ILLNESS: The patient is a 70 year old male with acute on chronic congestive heart failure, chronic anticoagulation, multiple cardiopulmonary arrest, recent diagnosis coronavirus and focal segmental edema causing functional intermittent bowel obstruction. Patient being treated for MSSA bacteremia. He is tolerating his diet. Patient denies any abdominal pain. He denies any nausea or vomiting. He is having bowel movements and passing gas. Patient's blood cultures are still positive for MRSA. He is followed by infectious disease. ID is recommending patient to have JOHN completed. Patient remains on Lasix drip for fluid overload. Afebrile. He is currently on 15 L high flow oxygen. WBC 11.9 Hgb 10.4 PHYSICAL EXAM: VITAL SIGNS: Reviewed GENERAL: Well-developed in no acute distress. HEENT: No sclera icterus. Extraocular movements grossly intact. Moist buccal mucosa. Head is atraumatic, normocephalic. Hears conversational speech. No nasal drainage. NECK: Supple without lymphadenopathy. CHEST: Non-labored respirations and equal bilateral excursions. CARDIOVASCULAR: Palpable 2+ radial pulses. ABDOMEN: Soft. Nondistended. Nontender. MUSCULOSKELETAL: No clubbing or cyanosis. NEUROLOGIC: No focal or lateralizing signs. Cranial nerves II through XII grossly intact. PSYCH: Appropriate affect. Alert and oriented to person, place and time. SKIN: Well perfused. Good skin turgor. ASSESSMENT: 1. Abdominal distention with large bowel dilation, persistent 2. Coronary artery disease with history of stent 3. Acute on chronic congestive heart failure 4. History of recent cardiac event requiring cardiopulmonary resuscitation 5. Diabetes type 2, [id number] 6. Hypokalemia 7. Acute on chronic renal injury 8. Anemia 9. Leukopenia, improved. 10. Coronavirus positive serology 11. Functional obstruction due to colonic edema 12. MSSA bacteremia PLAN: -Continue supportive care -Continue current diet -Continue IV antibiotics for MSSA bacteremia -Continue IV diuretics for fluid overload Physician Audit Clerks Supervisor note has been reviewed by physician. Signing provider agrees with the documented findings, assessment, and plan of care. Objective - Vital Signs Vital signs: Vital Signs Temp 98.0 F 01/08/21 08:00 Pulse 102 H 01/08/21 12:00 Resp 18 01/08/21 12:00 BP 122/76 01/08/21 12:00 Pulse Ox 97 01/08/21 14:07 Intake & Output 01/07/21 01/08/21 01/08/21 18:59 06:59 18:59 Intake Total 872.333 100 Output Total 325 875 650 Balance -325 -2.667 -550 Weight 100.5 kg 100.5 kg Intake: Intake, IV Titration 94.333 100 Amount Furosemide 100 mg In 94.333 100 Sodium Chloride 0.9% 90 ml @ 10 MG/HR 10 mls/hr IV .Q10H [facility] Rx#: [id number] Oral 778 Output: Urine 325 875 650 Uretheral ([place]) 100 Other: Voiding Method Indwelling Catheter Indwelling Catheter # Bowel Movements 1 - Labs CBC & Chem 7: 01/08/21 07:13 01/08/21 07:13 Labs: Abnormal Lab Results - Last 24 Hours (Table) 01/07/21 01/07/21 01/08/21 Range/Units 17:11 20:05 06:26 WBC (3.8-10.6) k/uL RBC (4.30-5.90) m/uL Hgb (13.0-17.5) gm/dL Hct (39.0-53.0) % RDW (11.5-15.5) % Neutrophils # (1.3-7.7) k/uL Lymphocytes # (1.0-4.8) k/uL BUN (9-20) mg/dL Glucose (74-99) mg/dL POC Glucose (mg/dL) 191 H 219 H 103 H (75-99) mg/dL Calcium (8.4-10.2) mg/dL 01/08/21 01/08/21 01/08/21 Range/Units 07:13 07:13 12:18 WBC 11.9 H (3.8-10.6) k/uL RBC 3.78 L (4.30-5.90) m/uL Hgb 10.4 L (13.0-17.5) gm/dL Hct 32.9 L (39.0-53.0) % RDW 17.2 H (11.5-15.5) % Neutrophils # 11.4 H (1.3-7.7) k/uL Lymphocytes # 0.2 L (1.0-4.8) k/uL BUN 44 H (9-20) mg/dL Glucose 107 H (74-99) mg/dL POC Glucose (mg/dL) 146 H (75-99) mg/dL Calcium 8.0 L (8.4-10.2) mg/dL Microbiology - Last 24 Hours (Table) 01/06/21 14:00 Catheter Tip Culture - Preliminary Catheter Tip Coagulase Negative Staph 01/07/21 05:53 Blood Culture Gram Stain - Preliminary Blood 01/04/21 03:30 Blood Culture - Preliminary Blood No Growth after 96 hours 01/07/21 05:53 Blood Culture - Final Blood 01/06/21 07:39 Blood Culture Gram Stain - Preliminary Blood Blood Culture - Preliminary Presumptive MRSA 01/05/21 05:38 Blood Culture Gram Stain - Final Blood Blood Culture - Final Methicillin resist S. aureus
[2021-01-08 17:00] LABS: Glucose,Whole Blood 187 mg/dL (75-99)
--- NOTE | 2021-01-08 19:01 | P.PN ---
Subjective Progress Note Date: 01/08/21 12/31/2020, patient is being seen in follow-up in the intensive care unit. The patient the patient is an acute hypoxic respiratory failure due to a combination of the congestion heart failure and coronavirus/Covid 19 related pneumonia. Note that the patient has CHF on the patient also has impaired left ventricular function with an ejection fraction of 20-25% and the patient is post cardiac catheterization and coronary stent placed earlier was noted to be normal and patent and no intervention was performed. The patient also is post brief cardiac arrest with PEA requiring CPR and return of spontaneous circulation occurred on 12/23/2020. Note that the patient's computed tomography scan of the head that was done showed no abnormalities an EEG was also normal. During the course of her treatment here in the hospital, the patient also developed an ileus with secondary abdominal distention and nausea and emesis and the CAT scan of the abdomen that was done on 12/25/2020 showed large bowel ileus. The patient has was given an enema which resulted in to a liquid bowel movement and subsequently the patient phoned 1 large bowel movement and the rest was essentially liquids. The patient is known to have CAD, previous bypass surgery, ischemic cardiomyopathy, diabetes mellitus, and she fibrillation which is a new onset in addition to hypertension and hyperlipidemia and history of colonic ileu s. The patient currently is in intensive care unit. The patient is on high flow oxygen 10 L per minute nasal cannula to maintain a saturation above 90%. The was dropped to Chest x-ray showing diffuse breath and pulmonary infiltrates. The patient is being treated with a combination of Decadron which is currently being given at a dose of 6 minute grams IV every 24 hours in addition to routine vitamin supplements for Covid 19 related pneumonia. At the same time, the patient is on broad-spectrum antibiotics with a combination of Zosyn and vancomycin. The antibiotic coverage essentially empiric as the patient has an elevated pro-calcitonin level. She has developed an acute kidney injury in the creatinine is up to 2.1 from a baseline of 1.32 at time of admission. This creatinine rises was from yesterday and based on that the patient on no diuretics. This acute kidney injury was thought to be related to a various factors including diuretics and contrast and heart failure. Based on the evolving acute kidney injury, the patient was taken off the diuretics. The patient is also in atrial fibrillation. The patient on amiodarone. The patient is on long-term and to coagulation with Eliquis. Creatinine today is up to 2.48 and the patient has staph aureus On 01/01/2021, the patient is being seen for a follow-up. The patient is quite comfortable on 3 L by nasal cannula. Repeat chest x-ray was done and it showed no major interval change compared to yesterday. Meanwhile, the patient is still in the intensive care unit and he is being treated for all these comorbidities. In terms of his respiratory status, the patient is still on Decadron 6 mg daily. His inflammatory markers show an LDH of 810 with a CRP of 164 which is down compared to yesterday. He did have staph aureus in the blood which is presumptively staph aureus. Due to concern of his underlying renal fa ilure, I stopped the vancomycin which probably has to be restarted back again. He is also on Zosyn. His pro-calcitonin level was as high as 8.8. A serum vancomycin level is not available at this point in time. Note that the patient also developed an acute kidney injury. Creatinine is at 2.5 which is slightly higher compared to yesterday. Serum bicarb is at 17 and the BUN is a 61. The patient's cardiac rhythm is still atrial fibrillation which is controlled for now. Abdominal ileus is still present as the patient's abdomen is slightly distended and patient is having liquid bowel movements. No nausea. No emesis. He is tolerating no direct for now and the patient is currently nothing by mouth. The abdominal film from yesterday showed persistence of ileus and distention of the large bowel. No abdominal pain at this point in time. As of his atrial fibrillation, the patient is on a combination of metoprolol 25 twice a day and amiodarone and the patient is on Eliquis 2.5 mg by mouth twice a day. His rate is currently controlled. His heart rate is in the mid 80s. 01/02/2021 the patient is being seen for a follow-up. In terms of his pulmonary status, the patient remains on oxygen at 2 L per minute nasal cannula. As mentioned earlier, the patient has a Covid 19 related pneumonia and the patient remains on Decadron 6 mg by mouth daily. In terms of his inflammatory markers, the levels are still pending for now and they have been ordered. Meanwhile, the patient has positive blood culture with MRSA. There are at least 3 the positive blood cultures of last dose being on 12/31/2020 and the patient remains on vancomycin. The patient is also on empiric antibiotic coverage with IV Zosyn. Follow calcitonin level has been elevated at 23 consistent with underlying sep sis with staph aureus. The vancomycin trough was 19.7 from this morning. Vancomycin dosing adjustments is being done by pharmacy. White cell count 7.6. D-dimer is at 1.7. Creatinine is improving started around 2.1. The chest x-ray from today is showing cardiomegaly with stable bilateral pulmonary infiltrates and I will say they perihilar infiltrates have improved compared to earlier chest x-rays. In terms of his ileus, the patient is tolerating full liquid diet and he is requesting for more fluids. The patient remains in atrial fibrillation. He has cardiomyopathy with an ejection fraction of 20-25%. His rate is controlled for now with a combination of metoprolol 25 mg by mouth twice a day and amiodarone 400 mg by mouth twice a day and he is also on long-term anticoagulation with Eliquis 2.5 mg by mouth twice a day. Function continues to improve. Neck fluid balance over the past 24 hours is negative for 16 mL. He is on no diuretics for now and the Lasix and placed on hold bases underlying renal failure. 01/03/2021, the patient is persistently bacteremic with MRSA. I think this is a main ongoing issue along with his Covid 19 related pneumonia, acute kidney injury, and abdominal ileus. The blood culture from yesterday came back again positive for MRSA and the patient remains on vancomycin. I'm not absolutely sure of the source of the infection. Unlikely to be related to MRSA pneumonia. Consider endovascular infection. Echocardiogram that was done during this current admission. Days back showed no evidence of any valvular vegetation. Remains on vancomycin. The chest x-ray f showed no major abnormalities. No evidence of any significant consolidation and the findings are essentially the same compared to yesterday's film. The patient's only on 2 L of oxygen by nasal cannula. Antibiotic coverage with Zosyn and vancomycin. His white cell count today that 7.3 and the patient is afebrile. I'm also noticing improvement in his renal function and the creatinine is down to 1.5 and the diuretics has been on hold. Potassium level needs to be replaced. His LDH level is down to 850 and the CRP is down to 53 and the patient remains on Decadron. The pro- calcitonin level is still quite elevated and the level came up to 23 and this is consistent with his MRSA bacteremia/sepsis. The patient has a vancomycin trough of 12.8. He remains in atrial fibrillation. He has a poor ejection fraction of 20-25%. His fluid balance over the past 24 hours has been in the order of +1.1 L. Abdomen is still distended. The patient is having liquidy stool. The abdomen is tympanic. The plan is to do a colonoscopy. The patient has taken follow-up prep with [facility]. 01/04/2021, the patient is on 2 L of oxygen by nasal cannula. He underwent his colonoscopy this morning it is ongoing ileus and the patient was found to have no major abnormalities. He was found to have some colonic polyps. 4 report is pending for now. The patient otherwise is not having any significant respiratory distress. Renal function continues to improve in the creatinine is down to 1.1. His chest x-ray from today is still pending. The blood cultures is still showing persistent bacteremia with the blood culture from 01/02/2021 was still positive for MRSA and a subsequent blood cultures from 01/03/2021 are positive for gram-positive cocci. As such, the patient is still bacteremic. He did have MRSA in his blood. He remains on vancomycin. The trough is 12.8 from yesterday. ID is on the case. No plans for JOHN by cardiology despite this ongoing bacteremia. As of his Covid 19 infection, the patient remains on Decadron 6 mg and he will complete a total of 10 day course. I make sure that they follow-up chest x-ray is obtained from today. 01/05/2021 I'm seeing the patient for the follow-up. He is currently out of the intensive care unit and is currently on the medical floor. He remains on 2 L of oxygen by nasal cannula. No signs of any significant respiratory distress. Active issues for now are Covid 19 related pneumonia, ileus which is improved an d ongoing septicemia/bacteremia with MRSA. The last blood culture from 01/04/2021 is not showing any growth yet it's early. Prior to that, his cultures from 01/03/2021 were again positive for MRSA. The patient remains on vancomycin. His vancomycin trough level is at 12.8 from 01/03/2021 and pharmacy is adjusting the dose of vancomycin. His white cell count today is at pending and the rest of the electrolytes including his renal function is stable with a creatinine of 1.0 with a BUN of 36 and a sodium of 140. He is back on diuretics and is currently taking Lasix 40 mg IV every 12 hours. He has chronic atrial fibrillation. He remains on anticoagulation with Eliquis. No other significant events otherwise for now. He is tolerating diet 01/06/2021, not to my surprise, the patient's blood cultures came back positive again for MRSA. He remains on vancomycin. I'm not sure what is the plan for this patient in terms of infectious disease and cardiology, I feel that the patient may benefit from a JOHN for diagnostic purposes. He was on vancomycin and he was switched to daptomycin by infectious disease.. He is afebrile. He is quite debilitated. He is receiving Lasix and he is in a negative fluid balance for now. He was slightly more short of breath and he was placed on 3 L of oxygen by nasal cannula and his current pulse ox is around 89-90%. As mentioned, the likelihood of this patient having a MRSA pneumonia is extremely unlikely. We'll need to look for any endovascular infection causing this persistent bacteremia with MRSA. MRI of the lumbar spine was done and showed no evidence of any abscesses. A repeat chest x-ray was done today. The patient continues to have interstitial infiltrates bilaterally mainly in the peripheries either from CHF versus Covid 19 related pneumonia as both of these cases Presents with a similar chest x-ray finding. He remains on long-term anticoagulation with Eliquis. He is also on Decadron 6 mg by mouth daily. He was started on Dapto The patient is seen today 01/08/2020 on follow-up on the regular medical floor. He is currently quite restless and short of breath. He is on 15 L high flow nasal cannula plus seen nonrebreather mask. Yesterday's x-ray revealed mild interval worsening in the acute diffuse inflammatory process within the lungs. Arterial blood gases done earlier this morning revealed a pO2 of 68, pCO2 37, pH 7.44 on 100% FiO2. Sodium 135. Potassium 3.7. Creatinine 1.1. Pro-calcitonin 0.48. Blood cultures are positive for MRSA. Patient will need for a JOHN. He is currently on daptomycin. He remains anticoagulated with Eliquis. Ejection fraction is 20-25%. He was given Lasix 40 mg IVP 1. The patient is seen today 01/08/2021 in follow-up on the selective care unit. He is currently sitting up in a chair at the bedside. Awake and alert in no acute distress. Doing quite a bit better today compared to yesterday. He is still on 15 L high flow nasal cannula and maintaining O2 saturations in the 90s. Chest x-ray continues to show diffuse interstitial opacities and extensive patchy bilateral airspace disease. Minimally improved. White count 11.9. Hemoglobin 10.4. Lymphocytes 0.2. Sodium 139. Potassium 3.7. Creatinine 1.10. He remains on bronchodilators, dexamethasone, vitamin supplements, adequately related with Eliquis. Remains on a Lasix drip at 10 mg an hour. Remains in a negative balance. Continued on daptomycin. Objective - Vital Signs Vital signs: Vital Signs Temp 98.0 F 01/08/21 08:00 Pulse 102 H 01/08/21 12:00 Resp 18 01/08/21 12:00 BP 122/76 01/08/21 12:00 Pulse Ox 99 01/08/21 16:12 Intake & Output 01/07/21 01/08/21 01/08/21 18:59 06:59 18:59 Intake Total 872.333 100 Output Total 325 875 652 Balance -325 -2.667 -552 Weight 100.5 kg 100.5 kg Intake: Intake, IV Titration 94.333 100 Amount Furosemide 100 mg In 94.333 100 Sodium Chloride 0.9% 90 ml @ 10 MG/HR 10 mls/hr IV .Q10H BHASKAR Rx#: [id number] Oral 778 Output: Urine 325 875 650 Uretheral ([place]) 100 Stool 2 Other: Voiding Method Indwelling Catheter Indwelling Catheter Indwelling Catheter # Bowel Movements 1 - Exam General: 70-year-old gentleman, ill appearing, up in a chair at the bedside appears older than stated age, currently on 15 L high flow nasal cannula Derm: warm, dry, multiple areas of ecchymosis Head: Head exam was generally normal. There was no scleral icterus or corneal arcus. Mucous membranes were moist. Eyes: EOMI, no lid lag, anicteric sclera Mouth: no lip lesion, mucus membranes dry Cardiovascular: The patient is currently in an atrial fibrillation with S1S2 irreg with grade 3 ejection murmur Lungs: High pitched wheeze, crackles in the bilateral posterior bases. Abdominal: soft, + high pitched bowel sounds, nontender to palpation, no guarding, no appreciable organomegaly Ext: no gross muscle atrophy, 2+ edema b/l LE, no contractures Neuro: Neurologically, the patient is awake and alert and the patient does not have any focal neurological deficit. Cranial nerves are essentially intact. Psych: fatigued but awakes to speak, oriented, appropriate affect - Labs CBC & Chem 7: 01/08/21 07:13 01/08/21 07:13 Labs: Abnormal Lab Results - Last 24 Hours (Table) 01/07/21 01/08/21 01/08/21 Range/Units 20:05 06:26 07:13 WBC 11.9 H (3.8-10.6) k/uL RBC 3.78 L (4.30-5.90) m/uL Hgb 10.4 L (13.0-17.5) gm/dL Hct 32.9 L (39.0-53.0) % RDW 17.2 H (11.5-15.5) % Neutrophils # 11.4 H (1.3-7.7) k/uL Lymphocytes # 0.2 L (1.0-4.8) k/uL BUN (9-20) mg/dL Glucose (74-99) mg/dL POC Glucose (mg/dL) 219 H 103 H (75-99) mg/dL Calcium (8.4-10.2) mg/dL 01/08/21 01/08/21 01/08/21 Range/Units 07:13 12:18 16:48 WBC (3.8-10.6) k/uL RBC (4.30-5.90) m/uL Hgb (13.0-17.5) gm/dL Hct (39.0-53.0) % RDW (11.5-15.5) % Neutrophils # (1.3-7.7) k/uL Lymphocytes # (1.0-4.8) k/uL BUN 44 H (9-20) mg/dL Glucose 107 H (74-99) mg/dL POC Glucose (mg/dL) 146 H 187 H (75-99) mg/dL Calcium 8.0 L (8.4-10.2) mg/dL Microbiology - Last 24 Hours (Table) 01/06/21 14:00 Catheter Tip Culture - Preliminary Catheter Tip Coagulase Negative Staph 01/07/21 05:53 Blood Culture Gram Stain - Preliminary Blood 01/04/21 03:30 Blood Culture - Preliminary Blood No Growth after 96 hours 01/07/21 05:53 Blood Culture - Final Blood 01/06/21 07:39 Blood Culture Gram Stain - Preliminary Blood Blood Culture - Preliminary Presumptive MRSA Assessment and Plan Assessment: 1 acute hypoxic respiratory failure, currently on 15 L high flow nasal cannula, and the respiratory failure is essentially due to combination of CHF exacerb ation and covid 19 related pneumonia, currently the patient is on Decadron. Chest x-ray is still showing persistent bilateral pulmonary infiltrates with peripheral distribution more consistent with Covid 19. Mildly improved. 2 acute covid 19 related pneumonia currently on Decadron and this to a combination of vitamin C, zinc and vitamin D. Superimposed pneumonia is likely the patient had an elevated pro-calcitonin level due to his bacteremia and sepsis with MRSA. Nevertheless, a superinfection involving the lung is felt to be less likely. 3 CHF with impaired left ventricular function and systolic heart failure with an ejection fraction of 20-25%. The patient was taken off diuretics due to an acute kidney injury. The patient was also off losartan and off dobutamine. 4 acute kidney injury, recovered and the patient has a normal renal function for now 5 large bowel ileus, please refer to the most recent CAT scan of the abdomen and the patient was given an enema with adequate bowel movements. General surgeries on the case ,colonoscopy today Reveals no abnormalities. The patient is passing flatus and bowel movement activity 6 coronary artery disease, post non-STEMI, post cardiac catheterization with a patent GAYLE to LAD and patent previous stent inserted stents 7 new-onset atrial fibrillation, rate controlled on amiodarone and metoprolol and the patient is on long-term articulation with Eliquis, and correlation will be restarted post colonoscopy 8 iron deficiency anemia 9 Diabetes mellitus type 2, currently off metformin due to acute kidney injury 10 hypertension 11 hyperlipidemia 12 thrombocytopenia, recovered 13 MRSA in the blood, exact source is not clear. Rule out MRSA sepsis/bacteremia. Repeat blood cultures are being sent. There is persistent bacteremia even the blood cultures from yesterday on 01/03/2021 are positive. Strongly suspect endovascular infection. Doubt this bacteremia is all resulting from a pneumonia. His pulmonary status is stable. JOHN is recommended. She has been switched to daptomycin due to failure of vancomycin treatment in this patient. He was still persistently bacteremic. Plan The patient was seen and evaluated by Dr. Azar Currently on 15 L high flow Remains on dexamethasone, vitamin supplements Anticoagulated with Eliquis Remains on a Lasix drip Continued bacteremia, currently on daptomycin Condition remains guarded Continue to follow I, the cosigning physician, performed a history & physical examination of the patient. Lungs sounds with bilateral end extra wheeze, crackles in the posterior bases. Maintaining good O2 saturations in the 90s on 15 L high flow nasal can nula. I discussed the assessment and plan of care with my nurse practitioner, Katie Gagnon. I attest to the above note as dictated by her.
[2021-01-08 20:23] LABS: Glucose,Whole Blood 331 mg/dL (75-99)
--- NOTE | 2021-01-08 20:28 | PN ---
PROGRESS NOTE DATE OF SERVICE: 01/08/2021 REASON FOR FOLLOWUP: MRSA bacteremia. INTERVAL HISTORY: The patient is currently afebrile. The patient is breathing slightly comfortably. The patient denies having any chest pain or shortness of breath. Occasional cough. No abdominal pain or diarrhea. PHYSICAL EXAMINATION: Blood pressure is 122/76, pulse of 102, temperature 98. He is 97% on high-flow oxygen. General description is an elderly male lying in bed in no distress. RESPIRATORY SYSTEM: Unlabored breathing with decreased intensity of breath sounds. No wheeze. HEART: S1, S2. Regular rate and rhythm. ABDOMEN: Soft. No tenderness. EXTREMITIES: Some trace edema of feet. LABS: Hemoglobin is 10.1, white count 11.9, BUN of 44, creatinine 1.10. Blood cultures remain positive. ASSESSMENT: Patient with persistent methicillin-resistant Staphylococcus aeruginosa bacteremia concerning for an endovascular source. JOHN was requested. Cardiology is recommending however, in view of the persistent bacteremia, no significant should be done. WBC scan was ordered; unfortunately it has been canceled; not sure why. It will be reordered. Patient to continue with daptomycin, daily blood cultures to document clearance of his bacteremia, and monitor his clinical course closely. MMODL / IJN: [id number] /
[2021-01-09] MEDS: ACETAMINOPHEN TAB 325 MG TAB PO PRN (03:34)
[2021-01-09 06:13] LABS: Glucose,Whole Blood 196 mg/dL (75-99)
[2021-01-09] MEDS: INSULIN ASPART (NovoLOG) 100 UNIT/ML VIAL SQ SCH ×4 (06:47→20:07)
[2021-01-09] MEDS: PANTOPRAZOLE 40 MG TABLET PO SCH (06:47)
[2021-01-09] MEDS: FUROSEMIDE 100 MG in SODIUM CHLORIDE 0.9% 90 ML IV SCH ×2 (06:47→20:12)
[2021-01-09] MEDS: INSULIN DETEMIR (LEVEMIR) 100 UNIT/ML SYR SQ SCH (06:47)
[2021-01-09 07:35] LABS: Anisocytosis Slight; Basophils % (A) 0 %; Eosinophils % (A) 0 %; HCT 28.6 % (39.0-53.0); HGB 9.4 gm/dL (13.0-17.5); Hypochromasia Slight; Lymphocytes # (A) 0.2 k/uL (1.0-4.8); Lymphocytes % (A) 2 %; MCHC 32.9 g/dL (31.0-37.0); MCV 85.3 fL (80.0-100.0); Mean Platelet Volume 8.5; Monocytes # (A) 0.3 k/uL (0-1.0); Monocytes % (A) 2 %; Neutrophils # (A) 9.9 k/uL (1.3-7.7); Neutrophils % (A) 95 %; Platelet Count 223 k/uL (150-450); RBC 3.35 m/uL (4.30-5.90); RDW 17.1 % (11.5-15.5); WBC 10.4 k/uL (3.8-10.6)
[2021-01-09 07:47] LABS: Calcium 7.8 mg/dL (8.4-10.2); Magnesium 1.8 mg/dL (1.6-2.3); Potassium 3.6 mmol/L (3.5-5.1)
--- NOTE | 2021-01-09 08:40 | XR ---
EXAMINATION TYPE: XR chest 1V portable DATE OF EXAM: 01/09/2021 COMPARISON: 01/08/2021 INDICATION: CHF, COVID TECHNIQUE: Single frontal view of the chest is obtained. FINDINGS: The heart size is mildly prominent. The pulmonary vasculature is prominent. Diffuse patchy infiltrate is present bilaterally greater on the left. Findings are stable from compar farhad. IMPRESSION: 1. Diffuse patchy infiltrates present bilaterally. Findings are nonspecific and can be compatible wit h atypical pneumonia. Congestive heart failure would be within the differential.
[2021-01-09] MEDS: allopurinoL 100 MG TAB PO SCH (09:07)
[2021-01-09] MEDS: CHOLECALCIFEROL 25 MCG (1000 IU) TABLET PO SCH (09:07)
[2021-01-09] MEDS: FERROUS SULFATE 325 MG TAB PO SCH (09:07)
[2021-01-09] MEDS: TAMSULOSIN 0.4 MG CAP.ER.24H PO SCH ×2 (09:07→20:07)
[2021-01-09] MEDS: CLOPIDOGREL 75 MG TAB PO SCH (09:07)
[2021-01-09] MEDS: ZINC SULFATE 220 MG CAP PO SCH (09:07)
[2021-01-09] MEDS: ASCORBIC ACID 500 MG TAB PO SCH (09:08)
[2021-01-09] MEDS: ISOSORBIDE MONONITRATE ER 30 MG TAB.ER.24H PO SCH (09:08)
[2021-01-09] MEDS: METOPROLOL TARTRATE 25 MG TAB PO SCH ×2 (09:08→20:07)
[2021-01-09] MEDS: metOLazone 5 MG TAB PO SCH (09:08)
[2021-01-09] MEDS: bisacodyL 10 MG SUPP RECTAL SCH (09:08)
[2021-01-09] MEDS: APIXABAN 5 MG TAB PO SCH ×2 (09:08→20:07)
[2021-01-09] MEDS: AMIODARONE 200 MG TAB PO SCH ×2 (09:08→20:07)
[2021-01-09] MEDS: LIDOCAINE 5% PATCH TOPICAL SCH (09:09)
[2021-01-09] MEDS: DAPTOmycin 750 MG in SODIUM CHLORIDE 0.9% 50 ML IVPB SCH (09:11)
[2021-01-09] MEDS: SODIUM BICARBONATE TAB 650 MG TAB PO SCH ×3 (09:14→20:07)
[2021-01-09] MEDS: dexAMETHasone 2 MG TAB PO SCH (09:14)
[2021-01-09] MEDS: SIMETHICONE 40 MG/0.6 ML DROPS 2,000 MG/30 ML BOTTLE PO SCH ×4 (09:15→21:46)
[2021-01-09] MEDS ORDERED: LORazepam 2 MG/ML INJ IV STA (09:53)
--- NOTE | 2021-01-09 10:00 | ECHOF ---
Referral Reason:endocarditis MEASUREMENTS -------- HEIGHT: 170.2 cm WEIGHT: 93.0 kg BP: RVIDd: 4.3 cm (< 3.3) IVSd: 1.2 cm (0.6 - 1.1) LVIDd: 6.0 cm (3.9 - 5.3) LVPWd: 1.2 cm (0.6 - 1.1) IVSs: 1.6 cm LVIDs: 5.1 cm LVPWs: 1.4 cm LA Diam: 5.3 cm (2.7 - 3.8) AV maxP.05 mmHg AV meanP.30 mmHg RAP: 15.00 mmHg RVSP: 58.16 mmHg FINDINGS -------- Atrial fibrillation. This was a technically good study. The left ventricle is mildly dilated. There is borderline concentric left ventricular hypertrophy. There is severe global hypokinesis of LV . Overall left ventricular systolic function is severely impaired with, an EF between 20 - 25 %. There is septal flattening in diastole and systole which i s consistent with right ventricular pressure and volume overload. The right ventricle is severely enlarged. The left atrium is markedly dilated. The right atrium is normal in size. Interatrial and interventricular septum intact. There is moderate aortic valve sclerosis. There is mild aortic regurgitation. There is moderate a ortic stenosis present. Peak/mean gradient across the Aortic Valve is 22.05mmHg / 11.30mmHg. The mitral valve leaflets are mildly thickened. Mild mitral annular calcification present. Mild m itral regurgitation is present. [id number] tricuspid regurgitation present. There is severe pulmonary hypertension. The rig ht ventricular systolic pressure, as measured by Doppler, is 58.16mmHg. Moderate pulmonic regurgitation. No vegetation noted on valves The aortic root size is normal. Normal inferior vena cava with less than 50% inspiratory collapse consistent with estimated right atr ial pressure of 15 mmHg. There is no pericardial effusion. CONCLUSIONS -------- 1. The left ventricle is mildly dilated. 2. There is borderline concentric left ventricular hypertrophy. 3. There is severe global hypokinesis of LV . 4. Overall left ventricular systolic function is severely impaired with, an EF between 20 - 25 %. 5. There is septal flattening in diastole and systole which is consistent with right ventricular pres sure and volume overload. 6. The right ventricle is severely enlarged. 7. The left atrium is markedly dilated. 8. There is moderate aortic valve sclerosis. 9. There is mild aortic regurgitation. 10. There is moderate aortic stenosis present. 11. Peak/mean gradient across the Aortic Valve is 22.05mmHg / 11.30mmHg. 12. The mitral valve leaflets are mildly thickened. 13. Mild mitral annular calcification present. 14. Mild mitral regurgitation is present. 15. [id number] tricuspid regurgitation present. 16. There is severe pulmonary hypertension. 17. The right ventricular systolic pressure, as measured by Doppler, is 58.16mmHg. 18. Moderate pulmonic regurgitation. 19. No vegetation noted on valves 20. Normal inferior vena cava with less than 50% inspiratory collapse consistent with estimated right atrial pressure of 15 mmHg. 21. There is no pericardial effusion. WOOD FINISHER APPRENTICE: Sheridan Vaughan RDCS
[2021-01-09] MEDS: HYDROcodone/APAP 5-325MG 1 EACH TAB PO PRN ×2 (10:35→20:08)
--- NOTE | 2021-01-09 11:01 | P.PN ---
Subjective Patient is seen in follow-up for acute kidney injury. He is currently maintained on Lasix drip at 10 mL an hour. Nonoliguric. Has a Duckworth catheter. Urine output documented is 3.7 L in the last 24 hours. Renal function a little worse from diuresis. Denies chest pain or shortness of breath. Vital signs are stable. General: The patient appeared well nourished and normally developed. HEENT: Head exam is unremarkable. Neck is without jugular venous distension. LUNGS: Breath sounds decreased. HEART: Rate and Rhythm are regular. ABDOMEN: Soft, no distention noted. EXTREMITITES: 2+ edema. Objective - Vital Signs Vital signs: Vital Signs Temp 97.6 F 01/09/21 09:23 Pulse 89 01/09/21 09:23 Resp 24 01/09/21 09:23 BP 142/86 01/09/21 09:23 Pulse Ox 96 01/09/21 09:23 Intake & Output 01/08/21 01/09/21 01/09/21 18:59 06:59 18:59 Intake Total 100 195.667 Output Total 652 3125 1 Balance -552 -2929.333 -1 Weight 100.5 kg 101 kg Intake: Intake, IV Titration 100 195.667 Amount Furosemide 100 mg In 100 195.667 Sodium Chloride 0.9% 90 ml @ 10 MG/HR 10 mls/hr IV .Q10H [facility] Rx#: [id number] Output: Urine 650 3125 Stool 2 1 Other: Voiding Method Indwelling Catheter Indwelling Catheter Indwelling Catheter # Bowel Movements 1 - Labs CBC & Chem 7: 01/09/21 06:32 01/09/21 06:32 Labs: Abnormal Lab Results - Last 24 Hours (Table) 01/08/21 01/08/21 01/08/21 Range/Units 12:18 16:48 20:22 RBC (4.30-5.90) m/uL Hgb (13.0-17.5) gm/dL Hct (39.0-53.0) % RDW (11.5-15.5) % Neutrophils # (1.3-7.7) k/uL Lymphocytes # (1.0-4.8) k/uL Sodium (137-145) mmol/L BUN (9-20) mg/dL Creatinine (0.66-1.25) mg/dL Glucose (74-99) mg/dL POC Glucose (mg/dL) 146 H 187 H 331 H (75-99) mg/dL Calcium (8.4-10.2) mg/dL 01/09/21 01/09/21 01/09/21 Range/Units 06:12 06:32 06:32 RBC 3.35 L (4.30-5.90) m/uL Hgb 9.4 L (13.0-17.5) gm/dL Hct 28.6 L (39.0-53.0) % RDW 17.1 H (11.5-15.5) % Neutrophils # 9.9 H (1.3-7.7) k/uL Lymphocytes # 0.2 L (1.0-4.8) k/uL Sodium 134 L (137-145) mmol/L BUN 58 H (9-20) mg/dL Creatinine 1.33 H (0.66-1.25) mg/dL Glucose 182 H (74-99) mg/dL POC Glucose (mg/dL) 196 H (75-99) mg/dL Calcium 7.8 L (8.4-10.2) mg/dL Microbiology - Last 24 Hours (Table) 01/08/21 07:13 Blood Culture Gram Stain - Preliminary Blood 01/08/21 07:13 Blood Culture - Final Blood 01/04/21 03:30 Blood Culture - Preliminary Blood No Growth after 120 hours 01/06/21 07:39 Blood Culture Gram Stain - Final Blood Blood Culture - Final Methicillin resist S. aureus 01/07/21 05:53 Blood Culture Gram Stain - Preliminary Blood Blood Culture - Preliminary Presumptive MRSA 01/06/21 14:00 Catheter Tip Culture - Preliminary Catheter Tip Coagulase Negative Staph Assessment and Plan Plan: Assessment: 1. Acute kidney injury secondary to ATN secondary to cardiorenal syndrome. Renal function a little worse from diuresis. Creatinine 1.33 today. 2. Acute on chronic systolic CHF with ejection fraction of 20%. 3. Chronic kidney disease stage IIIa with baseline creatinine near 1.3. 4. Volume overload. 5. Covid 19 pneumonia. 6. MRSA bacteremia maintained on antibiotics. Infectious disease following. N o vegetation noted on the valves. 7. Metabolic acidosis secondary to acute kidney injury maintained on oral bicarb. Plan: Maintain Lasix drip. Maintain metolazone. Low-salt diet. Strict is and os. Avoid nephrotoxins. May benefit from dobutamine again.
[2021-01-09 12:08] LABS: Glucose,Whole Blood 186 mg/dL (75-99)
[2021-01-09] MEDS: ALBUTEROL HFA INHALER INHALATION PRN ×2 (13:04→19:29)
--- NOTE | 2021-01-09 14:58 | P.PN ---
Subjective Progress Note Date: 01/09/21 (Delayed charting seen at 0930) Principal diagnosis: shortness of breath Patient is a 70-year-old male with a past medical history of coronary artery disease with history of CABG in 1999, diabetes mellitus type 2, hypertension, and dyslipidemia who presented to the emergency room with shortness of breath. He was subsequently found to have an acute exacerbation of systolic congestive heart failure. He was tachypneic and hypoxic on presentation. He was started on IV heparin due to an elevated troponin. He was started on Lasix and admitted. Cardiology was consulted who agreed with continuing Lasix and IV heparin. He had some optimal diuresis and therefore his Lasix was increased to 80 mg every 8 hours. Due to his low ejection fraction of 20-25% which was newly discovered plan was for cardiac catheterization, this was completed on 12/23 his stent were found to be patent LAD was widely open, with no additional intervention required. He was noted to have worsening renal function and his lisinopril was discontinued. He was transitioned off of heparin drip and onto Eliquis. He was also started on dobutamine. He did go into A. fib and was started on IV amiodarone and then transitioned to oral amiodarone. He was noted to have worsening renal function was seen by nephrology on 12/23. They agreed with continuing dobutamine drip and maintaining a systolic blood pressure greater than 110. On the evening of 12/23 patient seen in follow going to the bathroom and was found to be unresponsive with possible loss of pulses. CPR was initiated and after 1 round of CPR ROSC was noted, concern for possible vasovagal episode. He was awake and alert and did not require intubation. He was transferred to the ICU in critical care was consulted. There was some conc kay of possible seizure activity versus true cardiac arrest. Head CT was completed which showed no acute process, EEG was normal. His transitioned off of dobutamine on 12/24. He developed abdominal distension, nausea, and abdominal pain on 12/[address] demonstrated large bowel ileus. He did have an enema which resulted in liquid bowel movement and he had one large formed BM the morning of 12/26, the rest were liquid. His renal function was slowly improving and he was kept on lasix. He started having multiple liquid bowel movements. He continued to have some liquid bowel movements but was tolerating a diet. On 01/04 he underwent colonoscopy which showed colonic ileus. MRI lumbar spine showed no evidence of discitis with bilateral multilevel neural foraminal narrowing due to disc space narrowing and facet arthropathy. Overnight on 12/29 the patient started spiking fevers at approximately 8 PM. He experienced respiratory distress and was noted to be hypoxemic. CXR demonstrated patchy perihilar infiltrates and COVID testing came back positive. He required BiPap for O2 support he was transferred to the ICU. Pulmonary was reconsulted. He was noted to have high procalcitonin and was started on Zosyn. He then became nauseated and surgery made him NPO and ordered dulcolax. + blood culture and possible MRSA on 12/30 started on vanco. Source of infection was unknown. Patient had prolonged positive blood cultures with staph. Infectious disease following. Patient was transitioned to daptomycin on 01/04. There is consideration for possible JOHN, however due to patient's Covid positive status cardiology recommended avoiding a JOHN at this time and repeating a transthoracic echocardiogram. This was completed and again showed an ejection fraction of 20- 25%, severe global hypokinesis of the left ventricle, moderate aortic sclerosis with moderate aortic stenosis, severe pulmonary hypertension, and no vegetation on valves. Nephrology restarted her Lasix drips on 01/07 and added Zaroxolyn on 01/08 due to worsening fluid overload. Patient seen and examined at bedside. He complains of severe back pain. He states his Atwood was stopped, the Tylenol is not helping with his pain. He does not want to lie flat secondary to pain. We discussed the need for continued imaging finding his source of bacteremia. We will reinstitute his Atwood and half when necessary Dilaudid for his imaging. General: ill appearing, mild distress due to pain, appears at stated age Derm: warm, dry, multiple areas of ecchymosis Head: atraumatic, normocephalic, symmetric Eyes: EOMI, no lid lag, anicteric sclera Mouth: no lip lesion, mucus membranes dry Cardiovascular: S1S2 irreg wth grade 3 ejection murmur, positive posterior tibial pulse bilateral, Lungs: + Decreased breath sounds bilateral bases, no accessory muscle use, no conversational dyspnea Abdominal: soft, bowel sounds present, nontender to palpation, no guarding, no appreciable organomegaly Ext: no gross muscle atrophy, diffuse anasarca, no contractures Neuro: CN II-XI grossly intact, no focal neuro deficits Psych: Awake alert and oriented 3 with appropriate affect Covid-19 pneumonitis with acute hypoxic respiratory failure secondary to COVID pneumonitis CHF - Pulm recs - Decadron - Follow inflammatory labs - vit C, zinc, vit D - possible bacterial pneumonia with elevated procalcitonin, continue zosyn -Wean O2 as able. Persistent MRSA bacteremia - continue Dapto - ID recs - repeat blood culture 01/08 remain positive - TTE without Acute exacerbation of systolic congestive heart failure with ejection fraction 20-25% -Cardiology recommendations appreciated -Strict I's and O's, daily weights -Lopressor, losartan on hold due to LULÚ -Off dobutamine -Lasix gtt LULÚ on CKD IIIa, metabolic acidosis - nephrology recs: Lasix gtt, Metalozone - hold losartan - Off fluids - On oral bicarb - ? need for dobutamine again large bowel ileus, improved - Surgery recs appreciated New-onset Paroxysmal A. fib -Started on IV amiodarone and then transitioned to oral amiodarone -Eliquis, renal dose adjusted. Non-STEMI with history of coronary artery disease and CABG -Cath with patent GAYLE to LAD and prior stents, no intervention needed -Continue with Plavix, Lipitor, Imdur, Lopressor Iron deficiency anemia -Follow CBC -No indication for transfusion at this point in time. -Recommend colonoscopy as outpatient in light of ileus, frequent use of imodium at home, and iron deficiency Diabetes mellitus type 2 - off metformin - SSI - follow BS - A1C 6 Hypertension - controlled - Continue with metoprolol - follow BP Dyslipidemia - Statin Hypomagnesemia, resolved thrombocytopenia, resolved Cardiac event possible syncope vs cardiac arrest Hypokalemia, resolved Updated [id number] Tara over the phone on possible bacterial infection and on abx. DVT prophylaxis: Nildaqunayely Discussed with: patient, nursing Anticipated discharge:undetermined Anticipated discharge place: undetermined A total of 35 minutes was spent on the care of this complex patient more than 50% of the time was spent in counseling and care coordination. Objective - Vital Signs Vital signs: Vital Signs Temp 97.6 F 01/09/21 12:09 Pulse 85 01/09/21 12:09 Resp 16 01/09/21 12:09 BP 146/79 01/09/21 12:09 Pulse Ox 98 01/09/21 12:09 Intake & Output 01/08/21 01/09/21 01/09/21 18:59 06:59 18:59 Intake Total 100 195.667 Output Total 652 3125 1 Balance -552 -7449.333 -1 Weight 100.5 kg 101 kg Intake: Intake, IV Titration 100 195.667 Amount Furosemide 100 mg In 100 195.667 Sodium Chloride 0.9% 90 ml @ 10 MG/HR 10 mls/hr IV .Q10H [facility] Rx#: [id number] Output: Urine 650 3125 Stool 2 1 Other: Voiding Method Indwelling Catheter Indwelling Catheter Indwelling Catheter # Bowel Movements 1 - Labs CBC & Chem 7: 01/09/21 06:32 01/09/21 06:32 Labs: Abnormal Lab Results - Last 24 Hours (Table) 01/08/21 01/08/21 01/09/21 Range/Units 16:48 20:22 06:12 RBC (4.30-5.90) m/uL Hgb (13.0-17.5) gm/dL Hct (39.0-53.0) % RDW (11.5-15.5) % Neutrophils # (1.3-7.7) k/uL Lymphocytes # (1.0-4.8) k/uL Sodium (137-145) mmol/L BUN (9-20) mg/dL Creatinine (0.66-1.25) mg/dL Glucose (74-99) mg/dL POC Glucose (mg/dL) 187 H 331 H 196 H (75-99) mg/dL Calcium (8.4-10.2) mg/dL 01/09/21 01/09/21 01/09/21 Range/Units 06:32 06:32 12:07 RBC 3.35 L (4.30-5.90) m/uL Hgb 9.4 L (13.0-17.5) gm/dL Hct 28.6 L (39.0-53.0) % RDW 17.1 H (11.5-15.5) % Neutrophils # 9.9 H (1.3-7.7) k/uL Lymphocytes # 0.2 L (1.0-4.8) k/uL Sodium 134 L (137-145) mmol/L BUN 58 H (9-20) mg/dL Creatinine 1.33 H (0.66-1.25) mg/dL Glucose 182 H (74-99) mg/dL POC Glucose (mg/dL) 186 H (75-99) mg/dL Calcium 7.8 L (8.4-10.2) mg/dL Microbiology - Last 24 Hours (Table) 01/08/21 07:13 Blood Culture Gram Stain - Preliminary Blood 01/08/21 07:13 Blood Culture - Final Blood 01/04/21 03:30 Blood Culture - Preliminary Blood No Growth after 120 hours 01/06/21 07:39 Blood Culture Gram Stain - Final Blood Blood Culture - Final Methicillin resist S. aureus 01/07/21 05:53 Blood Culture Gram Stain - Preliminary Blood Blood Culture - Preliminary Presumptive MRSA 01/06/21 14:00 Catheter Tip Culture - Preliminary Catheter Tip Coagulase Negative Staph
--- NOTE | 2021-01-09 15:29 | P.PN ---
Subjective Progress Note Date: 01/09/21 CHIEF COMPLAINT: Colonic distention HISTORY OF PRESENT ILLNESS: The patient is a 70 year old male with acute on chronic congestive heart failure, chronic anticoagulation, multiple cardiopulmonary arrest, recent diagnosis coronavirus and focal segmental edema causing functional intermittent bowel obstruction. Patient being treated for MSSA bacteremia. He is tolerating his diet. Patient denies any abdominal pain. He denies any nausea or vomiting. He is having bowel movements and passing gas. Patient's blood cultures are still positive for MRSA. He is followed by infectious disease. Patient remains on Lasix drip for fluid overload. Afebrile. Oxygen level has come down to 5 L satting at 98%. WBC 10.4 Hgb 9.4 platelets 223 creatinine 1.33 PHYSICAL EXAM: VITAL SIGNS: Reviewed GENERAL: Well-developed in no acute distress. HEENT: No sclera icterus. Extraocular movements grossly intact. Moist buccal mucosa. Head is atraumatic, normocephalic. Hears conversational speech. No nasal drai nage. NECK: Supple without lymphadenopathy. CHEST: Non-labored respirations and equal bilateral excursions. CARDIOVASCULAR: Palpable 2+ radial pulses. ABDOMEN: Soft. Nondistended. Nontender. MUSCULOSKELETAL: No clubbing or cyanosis. NEUROLOGIC: No focal or lateralizing signs. Cranial nerves II through XII grossly intact. PSYCH: Appropriate affect. Alert and oriented to person, place and time. SKIN: Well perfused. Good skin turgor. ASSESSMENT: 1. Abdominal distention with large bowel dilation, persistent 2. Coronary artery disease with history of stent 3. Acute on chronic congestive heart failure 4. History of recent cardiac event requiring cardiopulmonary resuscitation 5. Diabetes type 2, [id number] 6. Hypokalemia 7. Acute on chronic renal injury 8. Anemia 9. Leukopenia, improved. 10. Coronavirus positive serology 11. Functional obstruction due to colonic edema 12. MSSA bacteremia PLAN: -Continue supportive care -Continue current diet -Continue IV antibiotics for MSSA bacteremia -Continue IV diuretics for fluid overload Physician Cloth Doffer note has been reviewed by physician. Signing provider agrees with the documented findings, assessment, and plan of care. Objective - Vital Signs Vital signs: Vital Signs Temp 97.6 F 01/09/21 12:09 Pulse 85 01/09/21 12:09 Resp 16 01/09/21 12:09 BP 146/79 01/09/21 12:09 Pulse Ox 98 01/09/21 12:09 Intake & Output 01/08/21 01/09/21 01/09/21 18:59 06:59 18:59 Intake Total 100 195.667 Output Total 652 3125 1 Balance -792 -0949.333 -1 Weight 100.5 kg 101 kg Intake: Intake, IV Titration 100 195.667 Amount Furosemide 100 mg In 100 195.667 Sodium Chloride 0.9% 90 ml @ 10 MG/HR 10 mls/hr IV .Q10H [facility] Rx#: [id number] Output: Urine 650 3125 Stool 2 1 Other: Voiding Method Indwelling Catheter Indwelling Catheter Indwelling Catheter # Bowel Movements 1 - Labs CBC & Chem 7: 01/09/21 06:32 01/09/21 06:32 Labs: Abnormal Lab Results - Last 24 Hours (Table) 01/08/21 01/08/21 01/09/21 Range/Units 16:48 20:22 06:12 RBC (4.30-5.90) m/uL Hgb (13.0-17.5) gm/dL Hct (39.0-53.0) % RDW (11.5-15.5) % Neutrophils # (1.3-7.7) k/uL Lymphocytes # (1.0-4.8) k/uL Sodium (137-145) mmol/L BUN (9-20) mg/dL Creatinine (0.66-1.25) mg/dL Glucose (74-99) mg/dL POC Glucose (mg/dL) 187 H 331 H 196 H (75-99) mg/dL Calcium (8.4-10.2) mg/dL 01/09/21 01/09/21 01/09/21 Range/Units 06:32 06:32 12:07 RBC 3.35 L (4.30-5.90) m/uL Hgb 9.4 L (13.0-17.5) gm/dL Hct 28.6 L (39.0-53.0) % RDW 17.1 H (11.5-15.5) % Neutrophils # 9.9 H (1.3-7.7) k/uL Lymphocytes # 0.2 L (1.0-4.8) k/uL Sodium 134 L (137-145) mmol/L BUN 58 H (9-20) mg/dL Creatinine 1.33 H (0.66-1.25) mg/dL Glucose 182 H (74-99) mg/dL POC Glucose (mg/dL) 186 H (75-99) mg/dL Calcium 7.8 L (8.4-10.2) mg/dL Microbiology - Last 24 Hours (Table) 01/08/21 07:13 Blood Culture Gram Stain - Preliminary Blood 01/08/21 07:13 Blood Culture - Final Blood 01/04/21 03:30 Blood Culture - Preliminary Blood No Growth after 120 hours 01/06/21 07:39 Blood Culture Gram Stain - Final Blood Blood Culture - Final Methicillin resist S. aureus 01/07/21 05:53 Blood Culture Gram Stain - Preliminary Blood Blood Culture - Preliminary Presumptive MRSA 01/06/21 14:00 Catheter Tip Culture - Preliminary Catheter Tip Coagulase Negative Staph
[2021-01-09] MEDS: HYDROmorphone 0.5 MG/0.5 ML SYRINGE IVP STA (15:33)
--- NOTE | 2021-01-09 16:47 | NM ---
EXAMINATION TYPE: NM WBC whole body DATE OF EXAM: 01/09/2021 COMPARISON: NONE HISTORY: Bacteremia TECHNIQUE: Following administration of 20.4 mCi Tc99m Ceretec. Images obtained 4 hours post injecti on. FINDINGS: Normal physiological tracer activity is noted in the liver and spleen and in the bone marrow of the a xial and appendicular skeleton. No focal increased uptake seen to suggest a pyogenic infection. IMPRESSION: Negative exam.
[2021-01-09 16:57] LABS: Glucose,Whole Blood 267 mg/dL (75-99)
--- NOTE | 2021-01-09 19:38 | P.PN ---
Subjective Progress Note Date: 01/09/21 Principal diagnosis: Acute hypoxic respiratory failure, multifactorial. 12/31/2020, patient is being seen in follow-up in the intensive care unit. The patient the patient is an acute hypoxic respiratory failure due to a combination of the congestion heart failure and coronavirus/Covid 19 related pneumonia. Note that the patient has CHF on the patient also has impaired left ventricular function with an ejection fraction of 20-25% and the patient is post cardiac catheterization and coronary stent placed earlier was noted to be normal and patent and no intervention was performed. The patient also is post brief cardiac arrest with PEA requiring CPR and return of spontaneous circulation occurred on 12/23/2020. Note that the patient's computed tomography scan of the head that was done showed no abnormalities an EEG was also normal. During the course of her treatment here in the hospital, the patient also developed an ileus with secondary abdominal distention and nausea and emesis and the CAT scan of the abdomen that was done on 12/25/2020 showed large bowel ileus. The patient has was given an enema which resulted in to a liquid bowel movement and subsequently the patient phoned 1 large bowel movement and the rest was essentially liquids. The patient is known to have CAD, previous bypass surgery, ischemic cardiomyopathy, diabetes mellitus, and she fibrillation which is a new onset in addition to hypertension and hyperlipidemia and history of colonic ileus. The patient currently is in intensive care unit. The patient is on high flow oxygen 10 L per minute nasal cannula to maintain a saturation above 90%. The was dropped to Chest x-ray showing diffuse breath and pulmonary infiltrates. The patient is being treated with a combination of Decadron which is currently being given at a dose of 6 minute grams IV every 24 hours in addition to routine vitamin supplements for Covid 19 related pneumonia. At the same time, the patient is on broad-spectrum antibiotics with a combination of Zosyn and vancomycin. The antibiotic coverage essentially empiric as the patient has an elevated pro-calcitonin level. She has developed an acute kidney injury in the creatinine is up to 2.1 from a baseline of 1.32 at time of admission. This creatinine rises was from yesterday and based on that the patient on no diuretics. This acute kidney injury was thought to be related to a various factors including diuretics and contrast and heart failure. Based on the evolving acute kidney injury, the patient was taken off the diuretics. The patient is also in atrial fibrillation. The patient on amiodarone. The patient is on long-term and to coagulation with Eliquis. Creatinine today is up to 2.48 and the patient has staph aureus On 01/01/2021, the patient is being seen for a follow-up. The patient is quite comfortable on 3 L by nasal cannula. Repeat chest x-ray was done and it showed no major interval change compared to yesterday. Meanwhile, the patient is still in the intensive care unit and he is being treated for all these comorbidities. In terms of his respiratory status, the patient is still on Decadron 6 mg daily. His inflammatory markers show an LDH of 810 with a CRP of 164 which is down compared to yesterday. He did have staph aureus in the blood which is presumptively staph aureus. Due to concern of his underlying renal failure, I stopped the vancomycin which probably has to be restarted back again. He is also on Zosyn. His pro-calcitonin level was as high as 8.8. A serum vancomycin level is not available at this point in time. Note that the patient also developed an acute kidney injury. Creatinine is at 2.5 which is slightly higher compared to yesterday. Serum bicarb is at 17 and the BUN is a 61. The patient's cardiac rhythm is still atrial fibrillation which is controlled for now. Abdominal ileus is still present as the patient's abdomen is slightly distended and patient is having liquid bowel movements. No nausea. No emesis. He is tolerating no direct for now and the patient is currently nothing by mouth. The abdominal film from yesterday showed persistence of ileus and distention of the large bowel. No abdominal pain at this point in time. As of his atrial fibrillation, the patient is on a combination of metoprolol 25 twice a day and amiodarone and the patient is on Eliquis 2.5 mg by mouth twice a day. His rate is currently controlled. His heart rate is in the mid 80s. 01/02/2021 the patient is being seen for a follow-up. In terms of his pulmonary status, the patient remains on oxygen at 2 L per minute nasal cannula. As mentioned earlier, the patient has a Covid 19 related pneumonia and the patient remains on Decadron 6 mg by mouth daily. In terms of his inflammatory markers, the levels are still pending for now and they have been ordered. Meanwhile, the patient has positive blood culture with MRSA. There are at least 3 the positive blood cultures of last dose being on 12/31/2020 and the patient remains on vancomycin. The patient is also on empiric antibiotic coverage with IV Zosyn. Follow calcitonin level has been elevated at 23 consistent with underlying sepsi s with staph aureus. The vancomycin trough was 19.7 from this morning. Vancomycin dosing adjustments is being done by pharmacy. White cell count 7.6. D-dimer is at 1.7. Creatinine is improving started around 2.1. The chest x-ray from today is showing cardiomegaly with stable bilateral pulmonary infiltrates and I will say they perihilar infiltrates have improved compared to earlier chest x-rays. In terms of his ileus, the patient is tolerating full liquid diet and he is requesting for more fluids. The patient remains in atrial fibrillation. He has cardiomyopathy with an ejection fraction of 20-25%. His rate is controlled for now with a combination of metoprolol 25 mg by mouth twice a day and amiodarone 400 mg by mouth twice a day and he is also on long-term anticoagulation with Eliquis 2.5 mg by mouth twice a day. Function continues to improve. Neck fluid balance over the past 24 hours is negative for 16 mL. He is on no diuretics for now and the Lasix and placed on hold bases underlying renal failure. 01/03/2021, the patient is persistently bacteremic with MRSA. I think this is a main ongoing issue along with his Covid 19 related pneumonia, acute kidney injury, and abdominal ileus. The blood culture from yesterday came back again positive for MRSA and the patient remains on vancomycin. I'm not absolutely sure of the source of the infection. Unlikely to be related to MRSA pneumonia. Consider endovascular infection. Echocardiogram that was done during this current admission. Days back showed no evidence of any valvular vegetation. Remains on vancomycin. The chest x-ray f showed no major abnormalities. No evidence of any significant consolidation and the findings are essentially the same compared to yesterday's film. The patient's only on 2 L of oxygen by nasal cannula. Antibiotic coverage with Zosyn and vancomycin. His white cell count today that 7.3 and the patient is afebrile. I'm also noticing improvement in his renal function and the creatinine is down to 1.5 and the diuretics has been on hold. Potassium level needs to be replaced. His LDH level is down to 850 and the CRP is down to 53 and the patient remains on Decadron. The pro- calcitonin level is still quite elevated and the level came up to 23 and this is consistent with his MRSA bacteremia/sepsis. The patient has a vancomycin trough of 12.8. He remains in atrial fibrillation. He has a poor ejection fraction of 20-25%. His fluid balance over the past 24 hours has been in the order of +1.1 L. Abdomen is still distended. The patient is having liquidy stool. The abdomen is tympanic. The plan is to do a colonoscopy. The patient has taken follow-up prep with [facility]. 01/04/2021, the patient is on 2 L of oxygen by nasal cannula. He underwent his colonoscopy this morning it is ongoing ileus and the patient was found to have no major abnormalities. He was found to have some colonic polyps. 4 report is pending for now. The patient otherwise is not having any significant respiratory distress. Renal function continues to improve in the creatinine is down to 1.1. His chest x-ray from today is still pending. The blood cultures is still showing persistent bacteremia with the blood culture from 01/02/2021 was still positive for MRSA and a subsequent blood cultures from 01/03/2021 are positive for gram-positive cocci. As such, the patient is still bacteremic. He did have MRSA in his blood. He remains on vancomycin. The trough is 12.8 from yesterday. ID is on the case. No plans for JOHN by cardiology despite this ongoing bacteremia. As of his Covid 19 infection, the patient remains on Decadron 6 mg and he will complete a total of 10 day course. I make sure that they follow-up chest x-ray is obtained from today. 01/05/2021 I'm seeing the patient for the follow-up. He is currently out of the intensive care unit and is currently on the medical floor. He remains on 2 L of oxygen by nasal cannula. No signs of any significant respiratory distress. Active issues for now are Covid 19 related pneumonia, ileus which is improved and ongoing septicemia/bacteremia with MRSA. The last blood culture from 01/04/2021 is not showing any growth yet it's early. Prior to that, his cultures from 01/03/2021 were again positive for MRSA. The patient remains on vancomycin. His vancomycin trough level is at 12.8 from 01/03/2021 and pharmacy is adjusting the dose of vancomycin. His white cell count today is at pending and the rest of the electrolytes including his renal function is stable with a creatinine of 1.0 with a BUN of 36 and a sodium of 140. He is back on diuretics and is currently taking Lasix 40 mg IV every 12 hours. He has chronic atrial fibrillation. He remains on anticoagulation with Eliquis. No other significant events otherwise for now. He is tolerating diet 01/06/2021, not to my surprise, the patient's blood cultures came back positive again for MRSA. He remains on vancomycin. I'm not sure what is the plan for this patient in terms of infectious disease and cardiology, I feel that the patient may benefit from a JOHN for diagnostic purposes. He was on vancomycin and he was switched to daptomycin by infectious disease.. He is afebrile. He is quite debilitated. He is receiving Lasix and he is in a negative fluid balance for now. He was slightly more short of breath and he was placed on 3 L of oxygen by nasal cannula and his current pulse ox is around 89-90%. As mentioned, the likelihood of this patient having a MRSA pneumonia is extremely unlikely. We'll need to look for any endovascular infection causing this persistent bacteremia with MRSA. MRI of the lumbar spine was done and showed no evidence of any abscesses. A repeat chest x-ray was done today. The patient continues to have interstitial infiltrates bilaterally mainly in the peripheries either from CHF versus Covid 19 related pneumonia as both of these cases Presents with a similar chest x-ray finding. He remains on long-term anticoagulation with Eliquis. He is also on Decadron 6 mg by mouth daily. He was started on Dapto The patient is seen today 01/08/2020 on follow-up on the regular medical floor. He is currently quite restless and short of breath. He is on 15 L high flow nasal cannula plus seen nonrebreather mask. Yesterday's x-ray revealed mild interval worsening in the acute diffuse inflammatory process within the lungs. Arterial blood gases done earlier this morning revealed a pO2 of 68, pCO2 37, pH 7.44 on 100% FiO2. Sodium 135. Potassium 3.7. Creatinine 1.1. Pro-calcitonin 0.48. Blood cultures are positive for MRSA. Patient will need for a JOHN. He is currently on daptomycin. He remains anticoagulated with Eliquis. Ejection fraction is 20-25%. He was given Lasix 40 mg IVP 1. The patient is seen today 01/08/2021 in follow-up on the selective care unit. He is currently sitting up in a chair at the bedside. Awake and alert in no acute distress. Doing quite a bit better today compared to yesterday. He is still on 15 L high flow nasal cannula and maintaining O2 saturations in the 90s. Chest x-ray continues to show diffuse interstitial opacities and extensive patchy bilateral airspace disease. Minimally improved. White count 11.9. Hemoglobin 10.4. Lymphocytes 0.2. Sodium 139. Potassium 3.7. Creatinine 1.10. He remains on bronchodilators, dexamethasone, vitamin supplements, adequately related with Eliquis. Remains on a Lasix drip at 10 mg an hour. Remains in a negative balance. Continued on daptomycin. Patient was reevaluated today patient seems to be doing much better today that he has been doing over the last few days. Breathing a lot easier. He is now only on 5 L high flow nasal cannula, and his O2 saturation is 97%. No chest x- ray was done today, but I plan to do one tomorrow. Patient remains on Lasix at 10 mg per hour, and I will cut it down to 5 mg per hour. Patient underwent/tagged study/WBC whole body scan, and it came back nondiagnostic Objective - Vital Signs Vital signs: Vital Signs Temp 97.6 F 01/09/21 16:00 Pulse 96 01/09/21 16:00 Resp 16 01/09/21 16:00 BP 140/80 01/09/21 16:00 Pulse Ox 97 01/09/21 16:00 Intake & Output 01/09/21 01/09/21 01/10/21 06:59 18:59 06:59 Intake Total 195.667 Output Total 2405 0069 Balance -4119.841 -9308 Weight 101 kg Intake: Intake, IV Titration 195.667 Amount Furosemide 100 mg In 195.667 Sodium Chloride 0.9% 90 ml @ 5 MG/HR 5 mls/hr IV .Q20H [facility] Rx#:[id number] Output: Urine 3125 2350 Stool 3 Other: Voiding Method Indwelling Catheter Indwelling Catheter # Bowel Movements 1 1 - Exam General: 70-year-old gentleman, ill appearing, up in a chair at the bedside appears older than stated age, currently on 5 L cannula, in no distress. Derm: warm, dry, multiple areas of ecchymosis Head: Head exam was generally normal. There was no scleral icterus or corneal ar cus. Mucous membranes were moist. Eyes: EOMI, no lid lag, anicteric sclera Mouth: no lip lesion, mucus membranes dry Cardiovascular: The patient is currently in an atrial fibrillation with S1S2 irreg with grade 3 ejection murmur Lungs: Very diminished breath sounds at the bases, minimal crackles only. No rhonchi and no wheezes. Abdominal: soft, + high pitched bowel sounds, nontender to palpation, no guarding, no appreciable organomegaly Ext: no gross muscle atrophy, 2+ edema b/l LE, no contractures Neuro: Alert and oriented 3, no gross focal neurologic deficits.. Psych: Normal mood, affect and normal mental status examination. - Labs CBC & Chem 7: 01/09/21 06:32 01/09/21 06:32 Labs: Abnormal Lab Results - Last 24 Hours (Table) 01/08/21 01/09/21 01/09/21 Range/Units 20:22 06:12 06:32 RBC 3.35 L (4.30-5.90) m/uL Hgb 9.4 L (13.0-17.5) gm/dL Hct 28.6 L (39.0-53.0) % RDW 17.1 H (11.5-15.5) % Neutrophils # 9.9 H (1.3-7.7) k/uL Lymphocytes # 0.2 L (1.0-4.8) k/uL Sodium (137-145) mmol/L BUN (9-20) mg/dL Creatinine (0.66-1.25) mg/dL Glucose (74-99) mg/dL POC Glucose (mg/dL) 331 H 196 H (75-99) mg/dL Calcium (8.4-10.2) mg/dL 01/09/21 01/09/21 01/09/21 Range/Units 06:32 12:07 16:55 RBC (4.30-5.90) m/uL Hgb (13.0-17.5) gm/dL Hct (39.0-53.0) % RDW (11.5-15.5) % Neutrophils # (1.3-7.7) k/uL Lymphocytes # (1.0-4.8) k/uL Sodium 134 L (137-145) mmol/L BUN 58 H (9-20) mg/dL Creatinine 1.33 H (0.66-1.25) mg/dL Glucose 182 H (74-99) mg/dL POC Glucose (mg/dL) 186 H 267 H (75-99) mg/dL Calcium 7.8 L (8.4-10.2) mg/dL Microbiology - Last 24 Hours (Table) 01/08/21 07:13 Blood Culture Gram Stain - Preliminary Blood 01/08/21 07:13 Blood Culture - Final Blood 01/04/21 03:30 Blood Culture - Preliminary Blood No Growth after 120 hours 01/06/21 07:39 Blood Culture Gram Stain - Final Blood Blood Culture - Final Methicillin resist S. aureus 01/07/21 05:53 Blood Culture Gram Stain - Preliminary Blood Blood Culture - Preliminary Presumptive MRSA Assessment and Plan Assessment: 1 acute hypoxic respiratory failure, currently on 15 L high flow nasal cannula, and the respiratory failure is essentially due to combination of CHF exacerbation and covid 19 related pneumonia, currently the patient is on Decadron. Chest x-ray is still showing persistent bilateral pulmonary infiltrates with peripheral distribution more consistent with Covid 19. Mildly improved. 2 acute covid 19 related pneumonia currently on Decadron and this to a combination of vitamin C, zinc and vitamin D. Superimposed pneumonia is likely the patient had an elevated pro-calcitonin level due to his bacteremia and sepsis with MRSA. Nevertheless, a superinfection involving the lung is felt to be less likely. 3 CHF with impaired left ventricular function and systolic heart failure with an ejection fraction of 20-25%. The patient was taken off diuretics due to an acute kidney injury. The patient was also off losartan and off dobutamine. 4 acute kidney injury, recovered and the patient has a normal renal function for now 5 large bowel ileus, please refer to the most recent CAT scan of the abdomen and the patient was given an enema with adequate bowel movements. General surgeries on the case ,colonoscopy today Reveals no abnormalities. The patient is passing flatus and bowel movement activity 6 coronary artery disease, post non-STEMI, post cardiac catheterization with a patent GAYLE to LAD and patent previous stent inserted stents 7 new-onset atrial fibrillation, rate controlled on amiodarone and metoprolol and the patient is on long-term articulation with Eliquis, and correlation will be restarted post colonoscopy8 iron deficiency anemia 9 Diabetes mellitus type 2, currently off metformin due to acute kidney injury 10 hypertension 11 hyperlipidemia 12 thrombocytopenia, recovered 13 MRSA in the blood, exact source is not clear. Rule out MRSA sepsis/bacteremia. Repeat blood cultures are being sent. There is persistent bacteremia even the blood cultures from yesterday on 01/03/2021 are positive. Strongly suspect endovascular infection. Doubt this bacteremia is all resulting from a pneumonia. His pulmonary status is stable. JOHN is recommended. She has been switched to daptomycin due to failure of vancomycin treatment in this patient. He was still persistently bacteremic. Recommendation: Continue present treatment plan, Continue antibiotics. Cut down Lasix to 5 mg per hour. Continue Decadron and vitamin supplements. Continue anticoagulation therapy. Follow-up chest x-ray in a.m. Continue daptomycin for bacteremia. And this is being addressed by infectious disease on the case. We'll continue to follow. Time with Patient: Less than 30
[2021-01-09 20:01] LABS: Glucose,Whole Blood 266 mg/dL (75-99)
--- NOTE | 2021-01-09 23:22 | PN ---
PROGRESS NOTE DATE OF SERVICE: 01/09/2021 REASON FOR FOLLOWUP: MRSA bacteremia likely endovascular source. INTERVAL HISTORY: Patient is currently afebrile. Patient is breathing slightly comfortably. The patient denies any chest pain. He did have some cough, not bringing up any sputum. No abdominal pain. No nausea, vomiting or diarrhea. PHYSICAL EXAMINATION: Blood pressure 140/80 with a pulse of 96, temperature 97.6. He is 97% on 5 L nasal cannula. General description is an elderly male lying in bed in no distress. Respiratory system: Unlabored breathing, decreased breath sounds in the base. No wheeze. Heart S1, S2. Regular rate and rhythm. Abdomen soft. No tenderness. Extremities: Some trace edema of feet. LABS: Hemoglobin 9.4, white count 10.4, BUN of 58, creatinine is 1.33. Blood culture from yesterday is still positive. WBC scan came back negative. DIAGNOSTIC IMPRESSION AND PLAN: Patient with MRSA bacteremia, persistent with concern for possible endovascular deep source. The patient did have MRI of the lumbosacral spine that was negative for any diskitis. The patient did have a negative WBC scan and no other obvious focus of infection. JOHN was requested, not done. The patient antibiotic has been on daptomycin high dose. Daily blood cultures to document clearance of bacteremia and we will discuss further with the admitting as well as cardiology team. MMOLAYINKAL / RENETTAN: [id number] /
[2021-01-10] MEDS: HYDROcodone/APAP 5-325MG 1 EACH TAB PO PRN ×2 (02:34→11:04)
[2021-01-10] MEDS: FUROSEMIDE 100 MG in SODIUM CHLORIDE 0.9% 90 ML IV SCH ×3 (02:34→21:21)
[2021-01-10 06:07] LABS: Glucose,Whole Blood 257 mg/dL (75-99)
[2021-01-10] MEDS: INSULIN ASPART (NovoLOG) 100 UNIT/ML VIAL SQ SCH ×3 (06:33→19:44)
[2021-01-10] MEDS: PANTOPRAZOLE 40 MG TABLET PO SCH (06:34)
[2021-01-10] MEDS: INSULIN DETEMIR (LEVEMIR) 100 UNIT/ML SYR SQ SCH (06:34)
[2021-01-10] MEDS: ALBUTEROL HFA INHALER INHALATION PRN ×3 (07:08→19:45)
[2021-01-10] MEDS: FERROUS SULFATE 325 MG TAB PO SCH (08:50)
[2021-01-10] MEDS: METOPROLOL TARTRATE 25 MG TAB PO SCH ×2 (08:50→21:18)
[2021-01-10] MEDS: CLOPIDOGREL 75 MG TAB PO SCH (08:50)
[2021-01-10] MEDS: TAMSULOSIN 0.4 MG CAP.ER.24H PO SCH ×2 (08:50→21:18)
[2021-01-10] MEDS: APIXABAN 5 MG TAB PO SCH ×2 (08:50→21:18)
[2021-01-10] MEDS: DAPTOmycin 750 MG in SODIUM CHLORIDE 0.9% 50 ML IVPB SCH (08:50)
[2021-01-10] MEDS: SODIUM BICARBONATE TAB 650 MG TAB PO SCH ×3 (08:51→21:18)
[2021-01-10] MEDS: ISOSORBIDE MONONITRATE ER 30 MG TAB.ER.24H PO SCH (08:51)
[2021-01-10] MEDS: dexAMETHasone 2 MG TAB PO SCH (08:51)
[2021-01-10] MEDS: allopurinoL 100 MG TAB PO SCH (08:51)
[2021-01-10] MEDS: CHOLECALCIFEROL 25 MCG (1000 IU) TABLET PO SCH (08:51)
[2021-01-10] MEDS: AMIODARONE 200 MG TAB PO SCH ×2 (08:51→21:18)
[2021-01-10] MEDS: ASCORBIC ACID 500 MG TAB PO SCH (08:53)
[2021-01-10] MEDS: LIDOCAINE 5% PATCH TOPICAL SCH (08:56)
[2021-01-10] MEDS: metOLazone 5 MG TAB PO SCH (08:56)
--- NOTE | 2021-01-10 09:31 | XR ---
EXAMINATION TYPE: XR chest 1V portable DATE OF EXAM: 01/10/2021 COMPARISON: 01/09/2021 INDICATION: CHF coughing and shortness breath TECHNIQUE: Single frontal view of the chest is obtained. FINDINGS: The heart size is mildly prominent. The pulmonary vasculature is normal. Scattered bilateral infiltrates are present. Findings are worsening over the interval. IMPRESSION: 1. Worsening bilateral lung infiltrates are nonspecific and can be compatible with atypical pneumonia
[2021-01-10] MEDS: SIMETHICONE 40 MG/0.6 ML DROPS 2,000 MG/30 ML BOTTLE PO SCH ×4 (11:05→21:18)
[2021-01-10] MEDS: bisacodyL 10 MG SUPP RECTAL SCH (11:05)
[2021-01-10] MEDS: ZINC SULFATE 220 MG CAP PO SCH (11:05)
--- NOTE | 2021-01-10 11:10 | P.PN ---
Subjective Patient is seen in follow-up for acute kidney injury. He is currently maintained on Lasix drip at 10 mL an hour. Nonoliguric. Has a Duckworth catheter. Urine output documented is 4.6 L in the last 24 hours. Renal function a little worse from diuresis with creatinine 1.33 as of yesterday. Oral intake poor. Currently on 4 L high flow cannula. Edema improving. Vital signs are stable. General: The patient appeared well nourished and normally developed. HEENT: Head exam is unremarkable. Neck is without jugular venous distension. LUNGS: Breath sounds decreased. HEART: Rate and Rhythm are regular. ABDOMEN: Soft, no distention noted. EXTREMITITES: 1+ edema. Objective - Vital Signs Vital signs: Vital Signs Temp 98.1 F 01/10/21 09:17 Pulse 95 01/10/21 09:17 Resp 20 01/10/21 09:17 BP 137/79 01/10/21 09:17 Pulse Ox 95 01/10/21 09:17 Intake & Output 01/09/21 01/10/21 01/10/21 18:59 06:59 18:59 Intake Total 100 63.667 360 Output Total 2353 2252 1 Balance -2253 -2188.333 359 Weight 105 kg Intake: Intake, IV Titration 100 63.667 Amount Furosemide 100 mg In 100 63.667 Sodium Chloride 0.9% 90 ml @ 5 MG/HR 5 mls/hr IV .Q20H [facility] Rx#:[id number] Oral 360 Output: Urine 2350 2250 Stool 3 2 1 Other: Voiding Method Indwelling Catheter Indwelling Catheter Indwelling Catheter # Bowel Movements 1 2 - Labs CBC & Chem 7: 01/09/21 06:32 01/09/21 06:32 Labs: Abnormal Lab Results - Last 24 Hours (Table) 01/09/21 01/09/21 01/09/21 Range/Units 12:07 16:55 20:00 POC Glucose (mg/dL) 186 H 267 H 266 H (75-99) mg/dL 01/10/21 Range/Units 06:05 POC Glucose (mg/dL) 257 H (75-99) mg/dL Microbiology - Last 24 Hours (Table) 01/09/21 06:32 Blood Culture - Preliminary Blood No Growth after 24 hours 01/04/21 03:30 Blood Culture - Final Blood No Growth after 144 hours 01/07/21 05:53 Blood Culture Gram Stain - Final Blood Blood Culture - Final Methicillin resist S. aureus 01/08/21 07:13 Blood Culture Gram Stain - Preliminary Blood Blood Culture - Preliminary Presumptive MRSA 01/08/21 07:13 Blood Culture - Final Blood Assessment and Plan Plan: Assessment: 1. Acute kidney injury secondary to ATN secondary to cardiorenal syndrome. Renal function a little worse from diuresis. Creatinine 1.33 as of yesterday. 2. Acute on chronic systolic CHF with ejection fraction of 20%. 3. Chronic kidney disease stage IIIa with baseline creatinine near 1.3. 4. Volume overload. 5. Covid 19 pneumonia. Maintained on steroids and zinc. 6. MRSA bacteremia maintained on antibiotics. Infectious disease following. No vegetation noted on the valves. 7. Metabolic acidosis secondary to acute kidney injury maintained on oral bicarb. Plan: Maintain Lasix drip. Maintain metolazone. Low-salt diet. Strict is and os. Avoid nephrotoxins. May benefit from dobutamine again. Morning labs pending.
[2021-01-10 11:39] LABS: Anisocytosis Slight; Basophils % (A) 0 %; Eosinophils % (A) 0 %; HCT 29.9 % (39.0-53.0); HGB 9.9 gm/dL (13.0-17.5); Hypochromasia Slight; Lymphocytes # (A) 0.3 k/uL (1.0-4.8); Lymphocytes % (A) 2 %; MCH 28.6 pg (25.0-35.0); MCHC 33.2 g/dL (31.0-37.0); MCV 85.9 fL (80.0-100.0); Mean Platelet Volume 8.5; Monocytes # (A) 0.3 k/uL (0-1.0); Monocytes % (A) 3 %; Neutrophils # (A) 11.5 k/uL (1.3-7.7); Neutrophils % (A) 95 %; Platelet Count 244 k/uL (150-450); RBC 3.48 m/uL (4.30-5.90); RDW 17.1 % (11.5-15.5); WBC 12.1 k/uL (3.8-10.6)
[2021-01-10 12:04] LABS: Glucose,Whole Blood 172 mg/dL (75-99)
[2021-01-10 12:58] LABS: Albumin 2.9 g/dL (3.5-5.0); Calcium 8.2 mg/dL (8.4-10.2); Magnesium 1.8 mg/dL (1.6-2.3); Potassium 3.8 mmol/L (3.5-5.1); Total Bilirubin 0.6 mg/dL (0.2-1.3)
--- NOTE | 2021-01-10 13:28 | P.PN ---
Subjective Progress Note Date: 01/10/21 CHIEF COMPLAINT: Persistent bacteremia, JOHN HISTORY OF PRESENT ILLNESS: 01/03/2021 This is a 70-year-old male with a past medical history significant for coronary artery disease with previous CABG and PCI, diabetes mellitus, GERD, hypertension, and hyperlipidemia. Patient follows in the office with . We have been asked to see the patient in consultation for persistent bacteremia and possible JOHN. The patient is admitted to the hospital due to acute hypoxic respiratory failure due to congestive heart failure. Patient was also found to be positive for Covid. Patient has developed new onset atrial fibrillation since being in the hospital. Patient had positive blood cultures on 12/30/2020 for MRSA. Repeat cultures on 12/31 and 01/01 are also positive for MRSA. Telemetry reveals atrial fibrillation with controlled ventricular rate Chest xray persistent scattered patchy infiltrate seen without significant interval change. Laboratory data: WBC 7.3. Hemoglobin 10.7. Platelet count 165. Sodium 136. Potassium 2.8. BUN 53. Creatinine 1.57. Current home cardiac medications include lisinopril 40 mg daily, Norvasc 10 mg daily, Demadex 20 mg daily, metoprolol tartrate 75 mg twice a day, Imdur 30 mg daily, Plavix 75 mg daily, Lipitor 80 mg daily, and aspirin 81 mg daily Echocardiogram completed on 01/01/2021 revealed ejection fraction 20-25%, mild aortic stenosis, trace to mild mitral regurgitation, and mild tricuspid regurgitation Patient underwent cardiac catheterization on 12/19/[address] Hicks. Patient was found to have stable coronary artery disease with patent GAYLE to the LAD and widely open circumflex and right coronary artery at the previous stented areas. 01/10/2021 Cardiology was reconsulted secondary to worsening congestive heart failure and possible dobutamine infusion to be reinstated. patient's creatinine 1.44 today, up from 1.33 yesterday. he is currently on a Lasix drip per nephrology. repeat echocardiogram completed on 01/08/2021 revealed ejection fraction 20-25% with no vegetation noted on the valves. PHYSICAL EXAM: Thorough physical exam not completed secondary to limited evaluation/examination and due to Covid19 ASSESSMENT: MRSA bacteremia Acute exacerbation of chronic systolic heart failure, EF 20-25% Acute hypoxic respiratory failure Covid 19 NSTEMI New-onset paroxysmal atrial fibrillation Coronary artery disease with previous CABG and PCI Acute kidney injury Large bowel ileus Hypertension Hyperlipidemia Diabetes mellitus GERD Hypokalemia PLAN: Continue antibiotics per Dr. Kramer Continue lasix drip per nephrology Okay from a cardiac standpoint to begin Dobutamine if needed. Will defer to nephrology. Further recommendations pending patient course Nurse practitioner note has been reviewed by physician. Signing provider agrees with the documented findings, assessment, and plan of care. Objective - Vital Signs Vital signs: Vital Signs Temp 98.1 F 01/10/21 09:17 Pulse 95 01/10/21 09:17 Resp 20 01/10/21 09:17 BP 137/79 01/10/21 09:17 Pulse Ox 95 01/10/21 09:17 Intake & Output 01/09/21 01/10/21 01/10/21 18:59 06:59 18:59 Intake Total 100 63.667 360 Output Total 2353 2252 1 Balance -2253 -2188.333 359 Weight 105 kg Intake: Intake, IV Titration 100 63.667 Amount Furosemide 100 mg In 100 63.667 Sodium Chloride 0.9% 90 ml @ 5 MG/HR 5 mls/hr IV .Q20H [facility] Rx#:[id number] Oral 360 Output: Urine 2350 2250 Stool 3 2 1 Other: Voiding Method Indwelling Catheter Indwelling Catheter Indwelling Catheter # Bowel Movements 1 2 - Labs CBC & Chem 7: 01/10/21 09:31 01/10/21 09:31 Labs: Abnormal Lab Results - Last 24 Hours (Table) 01/09/21 01/09/21 01/10/21 Range/Units 16:55 20:00 06:05 WBC (3.8-10.6) k/uL RBC (4.30-5.90) m/uL Hgb (13.0-17.5) gm/dL Hct (39.0-53.0) % RDW (11.5-15.5) % Neutrophils # (1.3-7.7) k/uL Lymphocytes # (1.0-4.8) k/uL Sodium (137-145) mmol/L Chloride (98-107) mmol/L BUN (9-20) mg/dL Creatinine (0.66-1.25) mg/dL Glucose (74-99) mg/dL POC Glucose (mg/dL) 267 H 266 H 257 H (75-99) mg/dL Calcium (8.4-10.2) mg/dL Alkaline Phosphatase (38-126) U/L Total Protein (6.3-8.2) g/dL Albumin (3.5-5.0) g/dL 01/10/21 01/10/21 01/10/21 Range/Units 09:31 09:31 11:53 WBC 12.1 H (3.8-10.6) k/uL RBC 3.48 L (4.30-5.90) m/uL Hgb 9.9 L (13.0-17.5) gm/dL Hct 29.9 L (39.0-53.0) % RDW 17.1 H (11.5-15.5) % Neutrophils # 11.5 H (1.3-7.7) k/uL Lymphocytes # 0.3 L (1.0-4.8) k/uL Sodium 135 L (137-145) mmol/L Chloride 96 L (98-107) mmol/L BUN 68 H (9-20) mg/dL Creatinine 1.44 H (0.66-1.25) mg/dL Glucose 195 H (74-99) mg/dL POC Glucose (mg/dL) 172 H (75-99) mg/dL Calcium 8.2 L (8.4-10.2) mg/dL Alkaline Phosphatase 131 H (38-126) U/L Total Protein 6.0 L (6.3-8.2) g/dL Albumin 2.9 L (3.5-5.0) g/dL Microbiology - Last 24 Hours (Table) 01/09/21 06:32 Blood Culture - Final Blood 01/04/21 03:30 Blood Culture - Final Blood No Growth after 144 hours 01/07/21 05:53 Blood Culture Gram Stain - Final Blood Blood Culture - Final Methicillin resist S. aureus 01/08/21 07:13 Blood Culture Gram Stain - Preliminary Blood Blood Culture - Preliminary Presumptive MRSA 01/08/21 07:13 Blood Culture - Final Blood
--- NOTE | 2021-01-10 16:12 | P.PN ---
Subjective Progress Note Date: 01/10/21 (delayed charting seen at 0930) Principal diagnosis: shortness of breath Patient is a 70-year-old male with a past medical history of coronary artery disease with history of CABG in 1999, diabetes mellitus type 2, hypertension, and dyslipidemia who presented to the emergency room with shortness of breath. He was subsequently found to have an acute exacerbation of systolic congestive heart failure. He was tachypneic and hypoxic on presentation. He was started on IV heparin due to an elevated troponin. He was started on Lasix and admitted. Cardiology was consulted who agreed with continuing Lasix and IV heparin. He had some optimal diuresis and therefore his Lasix was increased to 80 mg every 8 hours. Due to his low ejection fraction of 20-25% which was newly discovered plan was for cardiac catheterization, this was completed on 12/23 his stent were found to be patent LAD was widely open, with no additional intervention required. He was noted to have worsening renal function and his lisinopril was discontinued. He was transitioned off of heparin drip and onto Eliquis. He was also started on dobutamine. He did go into A. fib and was started on IV amiodarone and then transitioned to oral amiodarone. He was noted to have worsening renal function was seen by nephrology on 12/23. They agreed with continuing dobutamine drip and maintaining a systolic blood pressure greater than 110. On the evening of 12/23 patient seen in follow going to the bathroom and was found to be unresponsive with possible loss of pulses. CPR was initiated and after 1 round of CPR ROSC was noted, concern for possible vasovagal episode. He was awake and alert and did not require intubation. He was transferred to the ICU in critical care was consulted. There was some conc kay of possible seizure activity versus true cardiac arrest. Head CT was completed which showed no acute process, EEG was normal. His transitioned off of dobutamine on 12/24. He developed abdominal distension, nausea, and abdominal pain on 12/[address] demonstrated large bowel ileus. He did have an enema which resulted in liquid bowel movement and he had one large formed BM the morning of 12/26, the rest were liquid. His renal function was slowly improving and he was kept on lasix. He started having multiple liquid bowel movements. He continued to have some liquid bowel movements but was tolerating a diet. On 01/04 he underwent colonoscopy which showed colonic ileus. MRI lumbar spine showed no evidence of discitis with bilateral multilevel neural foraminal narrowing due to disc space narrowing and facet arthropathy. Overnight on 12/29 the patient started spiking fevers at approximately 8 PM. He experienced respiratory distress and was noted to be hypoxemic. CXR demonstrated patchy perihilar infiltrates and COVID testing came back positive. He required BiPap for O2 support he was transferred to the ICU. Pulmonary was reconsulted. He was noted to have high procalcitonin and was started on Zosyn. He then became nauseated and surgery made him NPO and ordered dulcolax. + blood culture and possible MRSA on 12/30 started on vanco. Source of infection was unknown. Patient had prolonged positive blood cultures with staph. Infectious disease following. Patient was transitioned to daptomycin on 01/04. There is consideration for possible JOHN, however due to patient's Covid positive status cardiology recommended avoiding a JOHN at this time and repeating a transthoracic echocardiogram. This was completed and again showed an ejection fraction of 20- 25%, severe global hypokinesis of the left ventricle, moderate aortic sclerosis with moderate aortic stenosis, severe pulmonary hypertension, and no vegetation on valves. Nephrology restarted her Lasix drips on 01/07 and added Zaroxolyn on 01/08 due to worsening fluid overload. Cardio reconsulted regarding dobutamine. tagged WBC scan without pyogenic area. Patient seen and examined at bedside. He states that the Iselin did not control his pain. He denies any nausea, vomiting, still no bowel movements. Encouraged him to get up to General: ill appearing, mild distress due to pain, appears at stated age Derm: warm, dry, multiple areas of ecchymosis Head: atraumatic, normocephalic, symmetric Eyes: EOMI, no lid lag, anicteric sclera Mouth: no lip lesion, mucus membranes dry Cardiovascular: S1S2 irreg wth grade 3 ejection murmur, positive posterior tibial pulse bilateral, Lungs: + Decreased breath sounds bilateral bases, no accessory muscle use, no conversational dyspnea Abdominal: soft, bowel sounds present, nontender to palpation, no guarding, no appreciable organomegaly Ext: no gross muscle atrophy, diffuse anasarca, no contractures Neuro: CN II-XI grossly intact, no focal neuro deficits Psych: Awake alert and oriented 3 with appropriate affect Persistent MRSA bacteremia must suspect endocarditis - continue Dapto - ID recs: Plan to treat as presumed endocarditis - repeat blood culture 01/08 remain positive - TTE without valvular disease, patient is not a candidate for JOHN secondary to shortness of breath and Covid Acute exacerbation of systolic congestive heart failure with ejection fraction 20-25% -Cardiology recommendations appreciated -Strict I's and O's, daily weights -Lopressor, losartan on hold due to LLUÚ -Off dobutamine, okay to restart per cardiology if needed -Lasix gtt LULÚ on CKD IIIa, metabolic acidosis - nephrology recs: Lasix gtt, Metalozone - hold losartan - Off fluids - On oral bicarb - ? need for dobutamine again, okay with cardio if needed Covid-19 pneumonitis with acute hypoxic respiratory failure secondary to COVID pneumonitis CHF - Pulm recs - Decadron therapy completed - vit C, zinc, vit D - Wean O2 as able. - Elevated pro calcitonin likely secondary to bacteremia and not reflective of pneumonia large bowel ileus, improved - Surgery recs appreciated New-onset Paroxysmal A. fib -Started on IV amiodarone and then transitioned to oral amiodarone -Eliquis, renal dose adjusted. Non-STEMI with history of coronary artery disease and CABG -Cath with patent GAYLE to LAD and prior stents, no intervention needed -Continue with Plavix, Lipitor, Imdur, Lopressor Iron deficiency anemia -Follow CBC -No indication for transfusion at this point in time. -Recommend colonoscopy as outpatient in light of ileus, frequent use of imodium at home, and iron deficiency Diabetes mellitus type 2 - off metformin - SSI - follow BS - A1C 6 Hypertension - controlled - Continue with metoprolol - follow BP Dyslipidemia - Statin Hypomagnesemia, resolved Thrombocytopenia, resolved Cardiac event possible syncope vs cardiac arrest Hypokalemia, resolved Updated [id number] Tara over the phone DVT prophylaxis: Cara Discussed with: patient, nursing Anticipated discharge:undetermined Anticipated discharge place: undetermined A total of 35 minutes was spent on the care of this complex patient more than 50% of the time was spent in counseling and care coordination. Objective - Vital Signs Vital signs: Vital Signs Temp 97.6 F 01/10/21 12:00 Pulse 82 01/10/21 12:00 Resp 16 01/10/21 14:00 BP 130/85 01/10/21 12:00 Pulse Ox 97 01/10/21 12:00 Intake & Output 01/09/21 01/10/21 01/10/21 18:59 06:59 18:59 Intake Total 100 63.667 1200 Output Total 2353 2252 2 Balance -1333 -2188.333 1198 Weight 105 kg Intake: Intake, IV Titration 100 63.667 Amount Furosemide 100 mg In 100 63.667 Sodium Chloride 0.9% 90 ml @ 5 MG/HR 5 mls/hr IV .Q20H [facility] Rx#:[id number] Oral 1200 Output: Urine 2350 2250 Stool 3 2 2 Other: Voiding Method Indwelling Catheter Indwelling Catheter Indwelling Catheter # Bowel Movements 1 2 3 - Labs CBC & Chem 7: 01/10/21 09:31 01/10/21 09:31 Labs: Abnormal Lab Results - Last 24 Hours (Table) 01/09/21 01/09/21 01/10/21 Range/Units 16:55 20:00 06:05 WBC (3.8-10.6) k/uL RBC (4.30-5.90) m/uL Hgb (13.0-17.5) gm/dL Hct (39.0-53.0) % RDW (11.5-15.5) % Neutrophils # (1.3-7.7) k/uL Lymphocytes # (1.0-4.8) k/uL Sodium (137-145) mmol/L Chloride (98-107) mmol/L BUN (9-20) mg/dL Creatinine (0.66-1.25) mg/dL Glucose (74-99) mg/dL POC Glucose (mg/dL) 267 H 266 H 257 H (75-99) mg/dL Calcium (8.4-10.2) mg/dL Alkaline Phosphatase (38-126) U/L Total Protein (6.3-8.2) g/dL Albumin (3.5-5.0) g/dL 01/10/21 01/10/21 01/10/21 Range/Units 09:31 09:31 11:53 WBC 12.1 H (3.8-10.6) k/uL RBC 3.48 L (4.30-5.90) m/uL Hgb 9.9 L (13.0-17.5) gm/dL Hct 29.9 L (39.0-53.0) % RDW 17.1 H (11.5-15.5) % Neutrophils # 11.5 H (1.3-7.7) k/uL Lymphocytes # 0.3 L (1.0-4.8) k/uL Sodium 135 L (137-145) mmol/L Chloride 96 L (98-107) mmol/L BUN 68 H (9-20) mg/dL Creatinine 1.44 H (0.66-1.25) mg/dL Glucose 195 H (74-99) mg/dL POC Glucose (mg/dL) 172 H (75-99) mg/dL Calcium 8.2 L (8.4-10.2) mg/dL Alkaline Phosphatase 131 H (38-126) U/L Total Protein 6.0 L (6.3-8.2) g/dL Albumin 2.9 L (3.5-5.0) g/dL Microbiology - Last 24 Hours (Table) 01/09/21 06:30 Blood Culture Gram Stain - Preliminary Blood 01/09/21 06:32 Blood Culture - Final Blood 01/04/21 03:30 Blood Culture - Final Blood No Growth after 144 hours 01/07/21 05:53 Blood Culture Gram Stain - Final Blood Blood Culture - Final Methicillin resist S. aureus 01/08/21 07:13 Blood Culture Gram Stain - Preliminary Blood Blood Culture - Preliminary Presumptive MRSA
--- NOTE | 2021-01-10 16:59 | P.PN ---
Subjective Progress Note Date: 01/10/21 Principal diagnosis: Acute hypoxic respiratory failure, multifactorial. 12/31/2020, patient is being seen in follow-up in the intensive care unit. The patient the patient is an acute hypoxic respiratory failure due to a combination of the congestion heart failure and coronavirus/Covid 19 related pneumonia. Note that the patient has CHF on the patient also has impaired left ventricular function with an ejection fraction of 20-25% and the patient is post cardiac catheterization and coronary stent placed earlier was noted to be normal and patent and no intervention was performed. The patient also is post brief cardiac arrest with PEA requiring CPR and return of spontaneous circulation occurred on 12/23/2020. Note that the patient's computed tomography scan of the head that was done showed no abnormalities an EEG was also normal. During the course of her treatment here in the hospital, the patient also developed an ileus with secondary abdominal distention and nausea and emesis and the CAT scan of the abdomen that was done on 12/25/2020 showed large bowel ileus. The patient has was given an enema which resulted in to a liquid bowel movement and subsequently the patient phoned 1 large bowel movement and the rest was essentially liquids. The patient is known to have CAD, previous bypass surgery, ischemic cardiomyopathy, diabetes mellitus, and she fibrillation which is a new onset in addition to hypertension and hyperlipidemia and history of colonic ileus. The patient currently is in intensive care unit. The patient is on high flow oxygen 10 L per minute nasal cannula to maintain a saturation above 90%. The was dropped to Chest x-ray showing diffuse breath and pulmonary infiltrates. The patient is being treated with a combination of Decadron which is currently being given at a dose of 6 minute grams IV every 24 hours in addition to routine vitamin supplements for Covid 19 related pneumonia. At the same time, the patient is on broad-spectrum antibiotics with a combination of Zosyn and vancomycin. The antibiotic coverage essentially empiric as the patient has an elevated pro-calcitonin level. She has developed an acute kidney injury in the creatinine is up to 2.1 from a baseline of 1.32 at time of admission. This creatinine rises was from yesterday and based on that the patient on no diuretics. This acute kidney injury was thought to be related to a various factors including diuretics and contrast and heart failure. Based on the evolving acute kidney injury, the patient was taken off the diuretics. The patient is also in atrial fibrillation. The patient on amiodarone. The patient is on long-term and to coagulation with Eliquis. Creatinine today is up to 2.48 and the patient has staph aureus On 01/01/2021, the patient is being seen for a follow-up. The patient is quite comfortable on 3 L by nasal cannula. Repeat chest x-ray was done and it showed no major interval change compared to yesterday. Meanwhile, the patient is still in the intensive care unit and he is being treated for all these comorbidities. In terms of his respiratory status, the patient is still on Decadron 6 mg daily. His inflammatory markers show an LDH of 810 with a CRP of 164 which is down compared to yesterday. He did have staph aureus in the blood which is presumptively staph aureus. Due to concern of his underlying renal failure, I stopped the vancomycin which probably has to be restarted back again. He is also on Zosyn. His pro-calcitonin level was as high as 8.8. A serum vancomycin level is not available at this point in time. Note that the patient also developed an acute kidney injury. Creatinine is at 2.5 which is slightly higher compared to yesterday. Serum bicarb is at 17 and the BUN is a 61. The patient's cardiac rhythm is still atrial fibrillation which is controlled for now. Abdominal ileus is still present as the patient's abdomen is slightly distended and patient is having liquid bowel movements. No nausea. No emesis. He is tolerating no direct for now and the patient is currently nothing by mouth. The abdominal film from yesterday showed persistence of ileus and distention of the large bowel. No abdominal pain at this point in time. As of his atrial fibrillation, the patient is on a combination of metoprolol 25 twice a day and amiodarone and the patient is on Eliquis 2.5 mg by mouth twice a day. His rate is currently controlled. His heart rate is in the mid 80s. 01/02/2021 the patient is being seen for a follow-up. In terms of his pulmonary status, the patient remains on oxygen at 2 L per minute nasal cannula. As mentioned earlier, the patient has a Covid 19 related pneumonia and the patient remains on Decadron 6 mg by mouth daily. In terms of his inflammatory markers, the levels are still pending for now and they have been ordered. Meanwhile, the patient has positive blood culture with MRSA. There are at least 3 the positive blood cultures of last dose being on 12/31/2020 and the patient remains on vancomycin. The patient is also on empiric antibiotic coverage with IV Zosyn. Follow calcitonin level has been elevated at 23 consistent with underlying sepsi s with staph aureus. The vancomycin trough was 19.7 from this morning. Vancomycin dosing adjustments is being done by pharmacy. White cell count 7.6. D-dimer is at 1.7. Creatinine is improving started around 2.1. The chest x-ray from today is showing cardiomegaly with stable bilateral pulmonary infiltrates and I will say they perihilar infiltrates have improved compared to earlier chest x-rays. In terms of his ileus, the patient is tolerating full liquid diet and he is requesting for more fluids. The patient remains in atrial fibrillation. He has cardiomyopathy with an ejection fraction of 20-25%. His rate is controlled for now with a combination of metoprolol 25 mg by mouth twice a day and amiodarone 400 mg by mouth twice a day and he is also on long-term anticoagulation with Eliquis 2.5 mg by mouth twice a day. Function continues to improve. Neck fluid balance over the past 24 hours is negative for 16 mL. He is on no diuretics for now and the Lasix and placed on hold bases underlying renal failure. 01/03/2021, the patient is persistently bacteremic with MRSA. I think this is a main ongoing issue along with his Covid 19 related pneumonia, acute kidney injury, and abdominal ileus. The blood culture from yesterday came back again positive for MRSA and the patient remains on vancomycin. I'm not absolutely sure of the source of the infection. Unlikely to be related to MRSA pneumonia. Consider endovascular infection. Echocardiogram that was done during this current admission. Days back showed no evidence of any valvular vegetation. Remains on vancomycin. The chest x-ray f showed no major abnormalities. No evidence of any significant consolidation and the findings are essentially the same compared to yesterday's film. The patient's only on 2 L of oxygen by nasal cannula. Antibiotic coverage with Zosyn and vancomycin. His white cell count today that 7.3 and the patient is afebrile. I'm also noticing improvement in his renal function and the creatinine is down to 1.5 and the diuretics has been on hold. Potassium level needs to be replaced. His LDH level is down to 850 and the CRP is down to 53 and the patient remains on Decadron. The pro- calcitonin level is still quite elevated and the level came up to 23 and this is consistent with his MRSA bacteremia/sepsis. The patient has a vancomycin trough of 12.8. He remains in atrial fibrillation. He has a poor ejection fraction of 20-25%. His fluid balance over the past 24 hours has been in the order of +1.1 L. Abdomen is still distended. The patient is having liquidy stool. The abdomen is tympanic. The plan is to do a colonoscopy. The patient has taken follow-up prep with [facility]. 01/04/2021, the patient is on 2 L of oxygen by nasal cannula. He underwent his colonoscopy this morning it is ongoing ileus and the patient was found to have no major abnormalities. He was found to have some colonic polyps. 4 report is pending for now. The patient otherwise is not having any significant respiratory distress. Renal function continues to improve in the creatinine is down to 1.1. His chest x-ray from today is still pending. The blood cultures is still showing persistent bacteremia with the blood culture from 01/02/2021 was still positive for MRSA and a subsequent blood cultures from 01/03/2021 are positive for gram-positive cocci. As such, the patient is still bacteremic. He did have MRSA in his blood. He remains on vancomycin. The trough is 12.8 from yesterday. ID is on the case. No plans for JOHN by cardiology despite this ongoing bacteremia. As of his Covid 19 infection, the patient remains on Decadron 6 mg and he will complete a total of 10 day course. I make sure that they follow-up chest x-ray is obtained from today. 01/05/2021 I'm seeing the patient for the follow-up. He is currently out of the intensive care unit and is currently on the medical floor. He remains on 2 L of oxygen by nasal cannula. No signs of any significant respiratory distress. Active issues for now are Covid 19 related pneumonia, ileus which is improved and ongoing septicemia/bacteremia with MRSA. The last blood culture from 01/04/2021 is not showing any growth yet it's early. Prior to that, his cultures from 01/03/2021 were again positive for MRSA. The patient remains on vancomycin. His vancomycin trough level is at 12.8 from 01/03/2021 and pharmacy is adjusting the dose of vancomycin. His white cell count today is at pending and the rest of the electrolytes including his renal function is stable with a creatinine of 1.0 with a BUN of 36 and a sodium of 140. He is back on diuretics and is currently taking Lasix 40 mg IV every 12 hours. He has chronic atrial fibrillation. He remains on anticoagulation with Eliquis. No other significant events otherwise for now. He is tolerating diet 01/06/2021, not to my surprise, the patient's blood cultures came back positive again for MRSA. He remains on vancomycin. I'm not sure what is the plan for this patient in terms of infectious disease and cardiology, I feel that the patient may benefit from a JOHN for diagnostic purposes. He was on vancomycin and he was switched to daptomycin by infectious disease.. He is afebrile. He is quite debilitated. He is receiving Lasix and he is in a negative fluid balance for now. He was slightly more short of breath and he was placed on 3 L of oxygen by nasal cannula and his current pulse ox is around 89-90%. As mentioned, the likelihood of this patient having a MRSA pneumonia is extremely unlikely. We'll need to look for any endovascular infection causing this persistent bacteremia with MRSA. MRI of the lumbar spine was done and showed no evidence of any abscesses. A repeat chest x-ray was done today. The patient continues to have interstitial infiltrates bilaterally mainly in the peripheries either from CHF versus Covid 19 related pneumonia as both of these cases Presents with a similar chest x-ray finding. He remains on long-term anticoagulation with Eliquis. He is also on Decadron 6 mg by mouth daily. He was started on Dapto The patient is seen today 01/08/2020 on follow-up on the regular medical floor. He is currently quite restless and short of breath. He is on 15 L high flow nasal cannula plus seen nonrebreather mask. Yesterday's x-ray revealed mild interval worsening in the acute diffuse inflammatory process within the lungs. Arterial blood gases done earlier this morning revealed a pO2 of 68, pCO2 37, pH 7.44 on 100% FiO2. Sodium 135. Potassium 3.7. Creatinine 1.1. Pro-calcitonin 0.48. Blood cultures are positive for MRSA. Patient will need for a JOHN. He is currently on daptomycin. He remains anticoagulated with Eliquis. Ejection fraction is 20-25%. He was given Lasix 40 mg IVP 1. The patient is seen today 01/08/2021 in follow-up on the selective care unit. He is currently sitting up in a chair at the bedside. Awake and alert in no acute distress. Doing quite a bit better today compared to yesterday. He is still on 15 L high flow nasal cannula and maintaining O2 saturations in the 90s. Chest x-ray continues to show diffuse interstitial opacities and extensive patchy bilateral airspace disease. Minimally improved. White count 11.9. Hemoglobin 10.4. Lymphocytes 0.2. Sodium 139. Potassium 3.7. Creatinine 1.10. He remains on bronchodilators, dexamethasone, vitamin supplements, adequately related with Eliquis. Remains on a Lasix drip at 10 mg an hour. Remains in a negative balance. Continued on daptomycin. Patient was reevaluated today patient seems to be doing much better today that he has been doing over the last few days. Breathing a lot easier. He is now only on 5 L high flow nasal cannula, and his O2 saturation is 97%. No chest x- ray was done today, but I plan to do one tomorrow. Patient remains on Lasix at 10 mg per hour, and I will cut it down to 5 mg per hour. Patient underwent/tagged study/WBC whole body scan, and it came back nondiagnostic Patient was reevaluated today on 01/10/2021, remains on 4 L nasal cannula. O2 sats is 97%, patient tells that he is still feeling fine compared to yesterday. And the day before. Remains on Lasix at 5 mg per hour IV infusion. Not much of a change in the last 24 hours, renal functioning remains borderline, hence I would continue the Lasix at the same dose may be switch him to IV push Lasix in the next 24 hours. Chest x-ray is showing significant interstitial infiltrates and edema bilaterally. CBC is relatively normal lites are normal BUN is up to 68 creatinine is 1.44. Blood sugar is 172. Objective - Vital Signs Vital signs: Vital Signs Temp 97.6 F 01/10/21 12:00 Pulse 82 01/10/21 12:00 Resp 16 01/10/21 14:00 BP 130/85 01/10/21 12:00 Pulse Ox 97 01/10/21 12:00 Intake & Output 01/09/21 01/10/21 01/10/21 18:59 06:59 18:59 Intake Total 100 63.667 1200 Output Total 2353 2252 2 Balance -2253 -2188.333 1198 Weight 105 kg Intake: Intake, IV Titration 100 63.667 Amount Furosemide 100 mg In 100 63.667 Sodium Chloride 0.9% 90 ml @ 5 MG/HR 5 mls/hr IV .Q20H BHASKAR Rx#:[id number] Oral 1200 Output: Urine 2350 2250 Stool 3 2 2 Other: Voiding Method Indwelling Catheter Indwelling Catheter Indwelling Catheter # Bowel Movements 1 2 3 - Exam General: 70-year-old gentleman, ill appearing, up in a chair at the bedside appears older than stated age, currently on 4 L cannula, in no distress. Derm: warm, dry, multiple areas of ecchymosis Head: Head exam was generally normal. There was no scleral icterus or corneal arcus. Mucous membranes were moist. Eyes: EOMI, no lid lag, anicteric sclera Mouth: no lip lesion, mucus membranes dry Cardiovascular: The patient is currently in an atrial fibrillation with S1S2 irreg with grade 3 ejection murmur Lungs: Very diminished breath sounds at the bases, minimal crackles only. No rhonchi and no wheezes. Abdominal: soft, + high pitched bowel sounds, nontender to palpation, no guarding, no appreciable organomegaly Ext: no gross muscle atrophy, 2+ edema b/l LE, no contractures Neuro: Alert and oriented 3, no gross focal neurologic deficits.. Psych: Normal mood, affect and normal mental status examination. - Labs CBC & Chem 7: 01/10/21 09:31 01/10/21 09:31 Labs: Abnormal Lab Results - Last 24 Hours (Table) 01/09/21 01/09/21 01/10/21 Range/Units 16:55 20:00 06:05 WBC (3.8-10.6) k/uL RBC (4.30-5.90) m/uL Hgb (13.0-17.5) gm/dL Hct (39.0-53.0) % RDW (11.5-15.5) % Neutrophils # (1.3-7.7) k/uL Lymphocytes # (1.0-4.8) k/uL Sodium (137-145) mmol/L Chloride (98-107) mmol/L BUN (9-20) mg/dL Creatinine (0.66-1.25) mg/dL Glucose (74-99) mg/dL POC Glucose (mg/dL) 267 H 266 H 257 H (75-99) mg/dL Calcium (8.4-10.2) mg/dL Alkaline Phosphatase (38-126) U/L Total Protein (6.3-8.2) g/dL Albumin (3.5-5.0) g/dL 01/10/21 01/10/21 01/10/21 Range/Units 09:31 09:31 11:53 WBC 12.1 H (3.8-10.6) k/uL RBC 3.48 L (4.30-5.90) m/uL Hgb 9.9 L (13.0-17.5) gm/dL Hct 29.9 L (39.0-53.0) % RDW 17.1 H (11.5-15.5) % Neutrophils # 11.5 H (1.3-7.7) k/uL Lymphocytes # 0.3 L (1.0-4.8) k/uL Sodium 135 L (137-145) mmol/L Chloride 96 L (98-107) mmol/L BUN 68 H (9-20) mg/dL Creatinine 1.44 H (0.66-1.25) mg/dL Glucose 195 H (74-99) mg/dL POC Glucose (mg/dL) 172 H (75-99) mg/dL Calcium 8.2 L (8.4-10.2) mg/dL Alkaline Phosphatase 131 H (38-126) U/L Total Protein 6.0 L (6.3-8.2) g/dL Albumin 2.9 L (3.5-5.0) g/dL Microbiology - Last 24 Hours (Table) 01/09/21 06:30 Blood Culture Gram Stain - Preliminary Blood 01/09/21 06:32 Blood Culture - Final Blood 01/04/21 03:30 Blood Culture - Final Blood No Growth after 144 hours 01/07/21 05:53 Blood Culture Gram Stain - Final Blood Blood Culture - Final Methicillin resist S. aureus 01/08/21 07:13 Blood Culture Gram Stain - Preliminary Blood Blood Culture - Preliminary Presumptive MRSA Assessment and Plan Assessment: 1 acute hypoxic respiratory failure, currently on 4 L nasal cannula and the respiratory failure is essentially due to combination of CHF exacerbation and covid 19 related pneumonia, currently the patient is on Decadron. Chest x-ray is still showing persistent bilateral pulmonary infiltrates with peripheral distribution more consistent with Covid 19. 2 acute covid 19 related pneumonia currently on Decadron and this to a combination of vitamin C, zinc and vitamin D. Superimposed pneumonia is likely the patient had an elevated pro-calcitonin level due to his bacteremia and sepsis with MRSA. Nevertheless, a superinfection involving the lung is felt to be less likely. 3 CHF with impaired left ventricular function and systolic heart failure with an ejection fraction of 20-25%. The patient was taken off diuretics due to an a cute kidney injury. The patient was also off losartan and off dobutamine. 4 acute kidney injury, recovered and the patient has a normal renal function for now 5 large bowel ileus, please refer to the most recent CAT scan of the abdomen and the patient was given an enema with adequate bowel movements. General surgeries on the case ,colonoscopy today Reveals no abnormalities. The patient is p assing flatus and bowel movement activity 6 coronary artery disease, post non-STEMI, post cardiac catheterization with a patent GAYLE to LAD and patent previous stent inserted stents 7 new-onset atrial fibrillation, rate controlled on amiodarone and metoprolol and the patient is on long-term articulation with Eliquis, and correlation will be restarted post colonoscopy8 iron deficiency anemia 9 Diabetes mellitus type 2, currently off metformin due to acute kidney injury 10 hypertension 11 hyperlipidemia 12 thrombocytopenia, recovered 13 MRSA bacteremia, being addressed by infectious disease on the case, remains on daptomycin. Recommendation: Continue present treatment plan, Continue antibiotics. Continue Lasix at 5 mg per hour. Plan to transition to IV push Lasix tomorrow Continue Decadron and vitamin supplements. Continue anticoagulation therapy. Chest x-ray was reviewed today Continue oxygen at 4 L nasal cannula and titrate accordingly. We'll continue to follow. Time with Patient: Less than 30
[2021-01-10 17:12] LABS: Glucose,Whole Blood 326 mg/dL (75-99)
[2021-01-10] MEDS ORDERED: INSULIN REGULAR BOLUS (FROM DRIP BAG) IV ONE (17:12)
[2021-01-10] MEDS ORDERED: INSULIN REGULAR 100 UNIT in SODIUM CHLORIDE 0.9% 100 ML IV SCH (17:15)
[2021-01-10 18:32] LABS: Glucose,Whole Blood 375 mg/dL (75-99)
[2021-01-10 19:35] LABS: Glucose,Whole Blood 311 mg/dL (75-99)
[2021-01-10 20:02] LABS: Glucose,Whole Blood 315 mg/dL (75-99)
[2021-01-10 21:10] LABS: Glucose,Whole Blood 186 mg/dL (75-99)
[2021-01-10] MEDS: HYDROcodone/APAP 7.5-325MG 1 EACH TAB PO PRN (21:19)
[2021-01-10 22:12] LABS: Glucose,Whole Blood 133 mg/dL (75-99)
--- NOTE | 2021-01-10 23:16 | PN ---
PROGRESS NOTE DATE OF SERVICE: 01/10/2021 REASON FOR FOLLOWUP: MRSA bacteremia, likely endovascular source. INTERVAL HISTORY: The patient is currently afebrile. He is breathing slightly comfortably. The patient denies having any chest pain. Did have some cough. No sputum production. No nausea. No vomiting. No abdominal pain. No diarrhea. PHYSICAL EXAMINATION: Blood pressure is 141/75 with a pulse of 110. Temperature 97.6. He is 94% on 4 L nasal cannula. General description is an elderly male lying in bed in no distress. Respiratory system: Unlabored breathing, decreased breath sounds. No wheeze. Heart S1, S2. Regular rate and rhythm. Abdomen soft, no tenderness. LABS: Hemoglobin is 9.1, white count 12.1. Blood culture from yesterday still positive. DIAGNOSTIC IMPRESSION AND PLAN: Patient with persistent MRSA bacteremia, possible endovascular source in this patient who did have extensive workup including MRI of the lumbosacral spine. WBC scan has been negative. Patient is covered with daptomycin, dose will be adjusted up and continue supportive care. Plan of care was discussed with the admitting physician on the floor. MMODL / IJN: [id number] /
[2021-01-11 00:04] LABS: Glucose,Whole Blood 97 mg/dL (75-99)
[2021-01-11 01:10] LABS: Glucose,Whole Blood 213 mg/dL (75-99)
[2021-01-11 03:15] LABS: Glucose,Whole Blood 73 mg/dL (75-99)
[2021-01-11 04:19] LABS: Glucose,Whole Blood 95 mg/dL (75-99)
[2021-01-11 05:46] LABS: Glucose,Whole Blood 128 mg/dL (75-99)
[2021-01-11] MEDS: HYDROcodone/APAP 7.5-325MG 1 EACH TAB PO PRN ×2 (05:57→18:31)
[2021-01-11] MEDS: PANTOPRAZOLE 40 MG TABLET PO SCH (05:57)
[2021-01-11 06:34] LABS: Glucose,Whole Blood 164 mg/dL (75-99)
[2021-01-11] MEDS: ALBUTEROL HFA INHALER INHALATION PRN ×2 (08:14→12:33)
[2021-01-11 08:33] LABS: Glucose,Whole Blood 177 mg/dL (75-99)
[2021-01-11] MEDS: LIDOCAINE 5% PATCH TOPICAL SCH (09:04)
[2021-01-11] MEDS: ASCORBIC ACID 500 MG TAB PO SCH (09:05)
[2021-01-11] MEDS: TAMSULOSIN 0.4 MG CAP.ER.24H PO SCH ×2 (09:05→21:02)
[2021-01-11] MEDS: ZINC SULFATE 220 MG CAP PO SCH (09:05)
[2021-01-11] MEDS: allopurinoL 100 MG TAB PO SCH (09:05)
[2021-01-11] MEDS: CHOLECALCIFEROL 25 MCG (1000 IU) TABLET PO SCH (09:05)
[2021-01-11] MEDS: CLOPIDOGREL 75 MG TAB PO SCH (09:05)
[2021-01-11] MEDS: dexAMETHasone 2 MG TAB PO SCH (09:05)
[2021-01-11] MEDS: AMIODARONE 200 MG TAB PO SCH ×2 (09:05→21:00)
[2021-01-11] MEDS: APIXABAN 5 MG TAB PO SCH ×2 (09:05→21:00)
[2021-01-11] MEDS: SODIUM BICARBONATE TAB 650 MG TAB PO SCH (09:05)
[2021-01-11] MEDS: metOLazone 5 MG TAB PO SCH (09:05)
[2021-01-11] MEDS: ISOSORBIDE MONONITRATE ER 30 MG TAB.ER.24H PO SCH (09:06)
[2021-01-11] MEDS: METOPROLOL TARTRATE 25 MG TAB PO SCH ×2 (09:06→21:02)
[2021-01-11] MEDS: INSULIN ASPART (NovoLOG) 100 UNIT/ML VIAL SQ SCH ×4 (09:06→20:59)
[2021-01-11] MEDS: bisacodyL 10 MG SUPP RECTAL SCH (09:07)
[2021-01-11] MEDS: FUROSEMIDE 100 MG in SODIUM CHLORIDE 0.9% 90 ML IV SCH (09:07)
[2021-01-11] MEDS: DAPTOmycin 750 MG in SODIUM CHLORIDE 0.9% 50 ML IVPB SCH (09:17)
[2021-01-11 09:29] LABS: Albumin 2.7 g/dL (3.5-5.0); Calcium 8.1 mg/dL (8.4-10.2); Magnesium 1.8 mg/dL (1.6-2.3); Potassium 3.5 mmol/L (3.5-5.1); Total Bilirubin 0.8 mg/dL (0.2-1.3); Total Protein 5.8 g/dL (6.3-8.2)
[2021-01-11] MEDS: SIMETHICONE 40 MG/0.6 ML DROPS 2,000 MG/30 ML BOTTLE PO SCH ×4 (09:50→20:59)
[2021-01-11 10:37] LABS: Glucose,Whole Blood 205 mg/dL (75-99)
[2021-01-11] MEDS ORDERED: POTASSIUM CHLORIDE ER 20 MEQ TAB.ER PO STA (11:19)
--- NOTE | 2021-01-11 11:21 | P.PN ---
Subjective Patient is seen in follow-up for acute kidney injury. He is currently maintained on Lasix drip at 5 mL an hour. Nonoliguric. Has a Duckworth catheter. Urine output documented is 1.7 L in the last 24 hours. Renal function a little worse from diuresis with creatinine 1.51 today. Oral intake poor. Currently on 2 L high flow cannula. Edema improving. Vital signs are stable. General: The patient appeared well nourished and normally developed. HEENT: Head exam is unremarkable. Neck is without jugular venous distension. LUNGS: Breath sounds decreased. HEART: Rate and Rhythm are regular. ABDOMEN: Soft, no distention noted. EXTREMITITES: 1+ edema. Objective - Vital Signs Vital signs: Vital Signs Temp 97.9 F 01/11/21 09:00 Pulse 108 H 01/11/21 09:00 Resp 18 01/11/21 09:00 BP 134/73 01/11/21 09:00 Pulse Ox 93 L 01/11/21 09:00 Intake & Output 01/10/21 01/11/21 01/11/21 18:59 06:59 18:59 Intake Total 1780 60.991 244.4 Output Total 652 1050 475 Balance 1128 -989.009 -230.6 Weight 104.8 kg Intake: Intake, IV Titration 100 60.991 4.4 Amount Furosemide 100 mg In 100 Sodium Chloride 0.9% 90 ml @ 5 MG/HR 5 mls/hr IV .Q20H [facility] Rx#:[id number] Insulin Regular 100 unit 60.991 4.4 In Sodium Chloride 0.9% 100 ml @ Titrate IV .Q0M [facility] Rx#:[id number] Oral 1680 240 Output: Urine 650 1050 475 Stool 2 Other: Voiding Method Indwelling Catheter Indwelling Catheter # Voids 1 # Bowel Movements 3 1 - Labs CBC & Chem 7: 01/10/21 09:31 01/11/21 08:12 Labs: Abnormal Lab Results - Last 24 Hours (Table) 01/10/21 01/10/21 01/10/21 Range/Units 09:02 09:31 09:31 WBC 12.1 H (3.8-10.6) k/uL RBC 3.48 L (4.30-5.90) m/uL Hgb 9.9 L (13.0-17.5) gm/dL Hct 29.9 L (39.0-53.0) % RDW 17.1 H (11.5-15.5) % Neutrophils # 11.5 H (1.3-7.7) k/uL Lymphocytes # 0.3 L (1.0-4.8) k/uL Sodium 135 L (137-145) mmol/L Chloride 96 L (98-107) mmol/L Carbon Dioxide (22-30) mmol/L BUN 68 H (9-20) mg/dL Creatinine 1.44 H (0.66-1.25) mg/dL Glucose 195 H (74-99) mg/dL POC Glucose (mg/dL) (75-99) mg/dL Calcium 8.2 L (8.4-10.2) mg/dL AST (17-59) U/L ALT (4-49) U/L Alkaline Phosphatase 131 H (38-126) U/L Total Protein 6.0 L (6.3-8.2) g/dL Albumin 2.9 L (3.5-5.0) g/dL Coronavirus (PCR) Detected A (Not Detectd) 01/10/21 01/10/21 01/10/21 Range/Units 11:53 17:03 18:31 WBC (3.8-10.6) k/uL RBC (4.30-5.90) m/uL Hgb (13.0-17.5) gm/dL Hct (39.0-53.0) % RDW (11.5-15.5) % Neutrophils # (1.3-7.7) k/uL Lymphocytes # (1.0-4.8) k/uL Sodium (137-145) mmol/L Chloride (98-107) mmol/L Carbon Dioxide (22-30) mmol/L BUN (9-20) mg/dL Creatinine (0.66-1.25) mg/dL Glucose (74-99) mg/dL POC Glucose (mg/dL) 172 H 326 H 375 H (75-99) mg/dL Calcium (8.4-10.2) mg/dL AST (17-59) U/L ALT (4-49) U/L Alkaline Phosphatase (38-126) U/L Total Protein (6.3-8.2) g/dL Albumin (3.5-5.0) g/dL Coronavirus (PCR) (Not Detectd) 01/10/21 01/10/21 01/10/21 Range/Units 19:15 19:56 21:07 WBC (3.8-10.6) k/uL RBC (4.30-5.90) m/uL Hgb (13.0-17.5) gm/dL Hct (39.0-53.0) % RDW (11.5-15.5) % Neutrophils # (1.3-7.7) k/uL Lymphocytes # (1.0-4.8) k/uL Sodium (137-145) mmol/L Chloride (98-107) mmol/L Carbon Dioxide (22-30) mmol/L BUN (9-20) mg/dL Creatinine (0.66-1.25) mg/dL Glucose (74-99) mg/dL POC Glucose (mg/dL) 311 H 315 H 186 H (75-99) mg/dL Calcium (8.4-10.2) mg/dL AST (17-59) U/L ALT (4-49) U/L Alkaline Phosphatase (38-126) U/L Total Protein (6.3-8.2) g/dL Albumin (3.5-5.0) g/dL Coronavirus (PCR) (Not Detectd) 01/10/21 01/11/21 01/11/21 Range/Units 22:10 01:08 03:13 WBC (3.8-10.6) k/uL RBC (4.30-5.90) m/uL Hgb (13.0-17.5) gm/dL Hct (39.0-53.0) % RDW (11.5-15.5) % Neutrophils # (1.3-7.7) k/uL Lymphocytes # (1.0-4.8) k/uL Sodium (137-145) mmol/L Chloride (98-107) mmol/L Carbon Dioxide (22-30) mmol/L BUN (9-20) mg/dL Creatinine (0.66-1.25) mg/dL Glucose (74-99) mg/dL POC Glucose (mg/dL) 133 H 213 H 73 L (75-99) mg/dL Calcium (8.4-10.2) mg/dL AST (17-59) U/L ALT (4-49) U/L Alkaline Phosphatase (38-126) U/L Total Protein (6.3-8.2) g/dL Albumin (3.5-5.0) g/dL Coronavirus (PCR) (Not Detectd) 01/11/21 01/11/21 01/11/21 Range/Units 05:28 06:32 08:12 WBC (3.8-10.6) k/uL RBC (4.30-5.90) m/uL Hgb (13.0-17.5) gm/dL Hct (39.0-53.0) % RDW (11.5-15.5) % Neutrophils # (1.3-7.7) k/uL Lymphocytes # (1.0-4.8) k/uL Sodium 133 L (137-145) mmol/L Chloride 92 L (98-107) mmol/L Carbon Dioxide 32 H (22-30) mmol/L BUN 76 H (9-20) mg/dL Creatinine 1.51 H (0.66-1.25) mg/dL Glucose 141 H (74-99) mg/dL POC Glucose (mg/dL) 128 H 164 H (75-99) mg/dL Calcium 8.1 L (8.4-10.2) mg/dL AST 62 H (17-59) U/L ALT 51 H (4-49) U/L Alkaline Phosphatase (38-126) U/L Total Protein 5.8 L (6.3-8.2) g/dL Albumin 2.7 L (3.5-5.0) g/dL Coronavirus (PCR) (Not Detectd) 01/11/21 01/11/21 Range/Units 08:31 10:34 WBC (3.8-10.6) k/uL RBC (4.30-5.90) m/uL Hgb (13.0-17.5) gm/dL Hct (39.0-53.0) % RDW (11.5-15.5) % Neutrophils # (1.3-7.7) k/uL Lymphocytes # (1.0-4.8) k/uL Sodium (137-145) mmol/L Chloride (98-107) mmol/L Carbon Dioxide (22-30) mmol/L BUN (9-20) mg/dL Creatinine (0.66-1.25) mg/dL Glucose (74-99) mg/dL POC Glucose (mg/dL) 177 H 205 H (75-99) mg/dL Calcium (8.4-10.2) mg/dL AST (17-59) U/L ALT (4-49) U/L Alkaline Phosphatase (38-126) U/L Total Protein (6.3-8.2) g/dL Albumin (3.5-5.0) g/dL Coronavirus (PCR) (Not Detectd) Microbiology - Last 24 Hours (Table) 01/09/21 06:30 Blood Culture Gram Stain - Preliminary Blood Blood Culture - Preliminary Presumptive MRSA 01/08/21 07:13 Blood Culture Gram Stain - Final Blood Blood Culture - Final Methicillin resist S. aureus 01/10/21 09:31 Blood Culture Gram Stain - Preliminary Blood 01/10/21 09:31 Blood Culture - Final Blood 01/09/21 06:32 Blood Culture - Final Blood Assessment and Plan Plan: Assessment: 1. Acute kidney injury secondary to ATN secondary to cardiorenal syndrome. Renal function a little worse from diuresis. Creatinine 1.51 today. 2. Acute on chronic systolic CHF with ejection fraction of 20%. 3. Chronic kidney disease stage IIIa with baseline creatinine near 1.3. 4. Volume overload. Improving with diuresis. 5. Covid 19 pneumonia. Maintained on steroids and zinc. 6. MRSA bacteremia maintained on antibiotics. Infectious disease following. No vegetation noted on the valves. 7. Metabolic acidosis secondary to acute kidney injury maintained on oral bicarb. Resolved. 8. Hypokalemia from diuresis. Plan: Maintain Lasix drip - can likely private branch exchange service adviser to oral diuretics tomorrow. Maintain metolazone. Low-salt diet. Strict is and os. Avoid nephrotoxins. Stop bicarb. Replace potassium. 40 mEq today.
[2021-01-11 12:30] LABS: Glucose,Whole Blood 115 mg/dL (75-99)
[2021-01-11] MEDS: FERROUS SULFATE 325 MG TAB PO SCH (12:40)
--- NOTE | 2021-01-11 13:43 | P.PN ---
Subjective Progress Note Date: 01/11/21 CHIEF COMPLAINT: Persistent bacteremia, JOHN HISTORY OF PRESENT ILLNESS: 01/03/2021 This is a 70-year-old male with a past medical history significant for coronary artery disease with previous CABG and PCI, diabetes mellitus, GERD, hypertension, and hyperlipidemia. Patient follows in the office with . We have been asked to see the patient in consultation for persistent bacteremia and possible JOHN. The patient is admitted to the hospital due to acute hypoxic respiratory failure due to congestive heart failure. Patient was also found to be positive for Covid. Patient has developed new onset atrial fibrillation since being in the hospital. Patient had positive blood cultures on 12/30/2020 for MRSA. Repeat cultures on 12/31 and 01/01 are also positive for MRSA. Telemetry reveals atrial fibrillation with controlled ventricular rate Chest xray persistent scattered patchy infiltrate seen without significant interval change. Laboratory data: WBC 7.3. Hemoglobin 10.7. Platelet count 165. Sodium 136. Potassium 2.8. BUN 53. Creatinine 1.57. Current home cardiac medications include lisinopril 40 mg daily, Norvasc 10 mg daily, Demadex 20 mg daily, metoprolol tartrate 75 mg twice a day, Imdur 30 mg daily, Plavix 75 mg daily, Lipitor 80 mg daily, and aspirin 81 mg daily Echocardiogram completed on 01/01/2021 revealed ejection fraction 20-25%, mild aortic stenosis, trace to mild mitral regurgitation, and mild tricuspid regurgitation Patient underwent cardiac catheterization on 12/19/[address] Hicks. Patient was found to have stable coronary artery disease with patent GAYLE to the LAD and widely open circumflex and right coronary artery at the previous stented areas. 01/10/2021 Cardiology was reconsulted secondary to worsening congestive heart failure and possible dobutamine infusion to be reinstated. patient's creatinine 1.44 today, up from 1.33 yesterday. he is currently on a Lasix drip per nephrology. repeat echocardiogram completed on 01/08/2021 revealed ejection fraction 20-25% with no vegetation noted on the valves. 01/11/2021 Patient remains on a Lasix drip per nephrology. Fluid balance over the last 24 hours is +138 mL. Creatinine is 1.51, up from 1.44. Repeat Covid testing yest erday was positive. Blood cultures remain positive for MRSA. PHYSICAL EXAM: Thorough physical exam not completed secondary to limited evaluation/examination and due to Covid19 ASSESSMENT: MRSA bacteremia Acute exacerbation of chronic systolic heart failure, EF 20-25% Acute hypoxic respiratory failure Covid 19 NSTEMI New-onset paroxysmal atrial fibrillation Coronary artery disease with previous CABG and PCI Acute kidney injury Large bowel ileus Hypertension Hyperlipidemia Diabetes mellitus GERD Hypokalemia PLAN: Continue antibiotics per Dr. Kramer Continue diuretics per nephrology Monitor kidney function Daily weights Accurate I&O Further recommendations pending patient course We will follow on an as needed basis. Please call with questions or concerns. Nurse practitioner note has been reviewed by physician. Signing provider agrees with the documented findings, assessment, and plan of care. Objective - Vital Signs Vital signs: Vital Signs Temp 97.9 F 01/11/21 09:00 Pulse 77 01/11/21 12:41 Resp 18 01/11/21 12:41 BP 115/71 01/11/21 12:41 Pulse Ox 94 L 01/11/21 12:41 Intake & Output 01/10/21 01/11/21 01/11/21 18:59 06:59 18:59 Intake Total 1780 60.991 344.4 Output Total 652 1050 475 Balance 1128 -989.009 -130.6 Weight 104.8 kg Intake: Intake, IV Titration 100 60.991 104.4 Amount Furosemide 100 mg In 100 100 Sodium Chloride 0.9% 90 ml @ 5 MG/HR 5 mls/hr IV .Q20H [facility] Rx#:[id number] Insulin Regular 100 unit 60.991 4.4 In Sodium Chloride 0.9% 100 ml @ Titrate IV .Q0M [facility] Rx#:[id number] Oral 1680 240 Output: Urine 650 1050 475 Stool 2 Other: Voiding Method Indwelling Catheter Indwelling Catheter # Voids 1 # Bowel Movements 3 1 - Labs CBC & Chem 7: 01/12/21 07:49 01/11/21 08:12 Labs: Abnormal Lab Results - Last 24 Hours (Table) 01/10/21 01/10/21 01/10/21 Range/Units 09:02 17:03 18:31 Sodium (137-145) mmol/L Chloride (98-107) mmol/L Carbon Dioxide (22-30) mmol/L BUN (9-20) mg/dL Creatinine (0.66-1.25) mg/dL Glucose (74-99) mg/dL POC Glucose (mg/dL) 326 H 375 H (75-99) mg/dL Calcium (8.4-10.2) mg/dL AST (17-59) U/L ALT (4-49) U/L Total Protein (6.3-8.2) g/dL Albumin (3.5-5.0) g/dL Coronavirus (PCR) Detected A (Not Detectd) 01/10/21 01/10/21 01/10/21 Range/Units 19:15 19:56 21:07 Sodium (137-145) mmol/L Chloride (98-107) mmol/L Carbon Dioxide (22-30) mmol/L BUN (9-20) mg/dL Creatinine (0.66-1.25) mg/dL Glucose (74-99) mg/dL POC Glucose (mg/dL) 311 H 315 H 186 H (75-99) mg/dL Calcium (8.4-10.2) mg/dL AST (17-59) U/L ALT (4-49) U/L Total Protein (6.3-8.2) g/dL Albumin (3.5-5.0) g/dL Coronavirus (PCR) (Not Detectd) 01/10/21 01/11/21 01/11/21 Range/Units 22:10 01:08 03:13 Sodium (137-145) mmol/L Chloride (98-107) mmol/L Carbon Dioxide (22-30) mmol/L BUN (9-20) mg/dL Creatinine (0.66-1.25) mg/dL Glucose (74-99) mg/dL POC Glucose (mg/dL) 133 H 213 H 73 L (75-99) mg/dL Calcium (8.4-10.2) mg/dL AST (17-59) U/L ALT (4-49) U/L Total Protein (6.3-8.2) g/dL Albumin (3.5-5.0) g/dL Coronavirus (PCR) (Not Detectd) 01/11/21 01/11/21 01/11/21 Range/Units 05:28 06:32 08:12 Sodium 133 L (137-145) mmol/L Chloride 92 L (98-107) mmol/L Carbon Dioxide 32 H (22-30) mmol/L BUN 76 H (9-20) mg/dL Creatinine 1.51 H (0.66-1.25) mg/dL Glucose 141 H (74-99) mg/dL POC Glucose (mg/dL) 128 H 164 H (75-99) mg/dL Calcium 8.1 L (8.4-10.2) mg/dL AST 62 H (17-59) U/L ALT 51 H (4-49) U/L Total Protein 5.8 L (6.3-8.2) g/dL Albumin 2.7 L (3.5-5.0) g/dL Coronavirus (PCR) (Not Detectd) 01/11/21 01/11/21 01/11/21 Range/Units 08:31 10:34 12:28 Sodium (137-145) mmol/L Chloride (98-107) mmol/L Carbon Dioxide (22-30) mmol/L BUN (9-20) mg/dL Creatinine (0.66-1.25) mg/dL Glucose (74-99) mg/dL POC Glucose (mg/dL) 177 H 205 H 115 H (75-99) mg/dL Calcium (8.4-10.2) mg/dL AST (17-59) U/L ALT (4-49) U/L Total Protein (6.3-8.2) g/dL Albumin (3.5-5.0) g/dL Coronavirus (PCR) (Not Detectd) Microbiology - Last 24 Hours (Table) 01/10/21 09:31 Blood Culture Gram Stain - Preliminary Blood 01/09/21 06:30 Blood Culture Gram Stain - Preliminary Blood Blood Culture - Preliminary Presumptive MRSA 01/08/21 07:13 Blood Culture Gram Stain - Final Blood Blood Culture - Final Methicillin resist S. aureus 01/10/21 09:31 Blood Culture - Final Blood 01/09/21 06:32 Blood Culture - Final Blood
[2021-01-11 14:39] LABS: Glucose,Whole Blood 230 mg/dL (75-99)
--- NOTE | 2021-01-11 14:55 | P.PN ---
Subjective Progress Note Date: 01/11/21 (isabel charting seen at 0905) Principal diagnosis: shortness of breath Patient is a 70-year-old male with a past medical history of coronary artery disease with history of CABG in 1999, diabetes mellitus type 2, hypertension, and dyslipidemia who presented to the emergency room with shortness of breath. He was subsequently found to have an acute exacerbation of systolic congestive heart failure. He was tachypneic and hypoxic on presentation. He was started on IV heparin due to an elevated troponin. He was started on Lasix and admitted. Cardiology was consulted who agreed with continuing Lasix and IV heparin. He had some optimal diuresis and therefore his Lasix was increased to 80 mg every 8 hours. Due to his low ejection fraction of 20-25% which was newly discovered plan was for cardiac catheterization, this was completed on 12/23 his stent were found to be patent LAD was widely open, with no additional intervention required. He was noted to have worsening renal function and his lisinopril was discontinued. He was transitioned off of heparin drip and onto Eliquis. He was also started on dobutamine. He did go into A. fib and was started on IV amiodarone and then transitioned to oral amiodarone. He was noted to have worsening renal function was seen by nephrology on 12/23. They agreed with continuing dobutamine drip and maintaining a systolic blood pressure greater than 110. On the evening of 12/23 patient seen in follow going to the bathroom and was found to be unresponsive with possible loss of pulses. CPR was initiated and after 1 round of CPR ROSC was noted, concern for possible vasovagal episode. He was awake and alert and did not require intubation. He was transferred to the ICU in critical care was consulted. There was some con cern of possible seizure activity versus true cardiac arrest. Head CT was completed which showed no acute process, EEG was normal. His transitioned off of dobutamine on 12/24. He developed abdominal distension, nausea, and abdominal pain on 12/[address] demonstrated large bowel ileus. He did have an enema which resulted in liquid bowel movement and he had one large formed BM the morning of 12/26, the rest were liquid. His renal function was slowly improving and he was kept on lasix. He started having multiple liquid bowel movements. He continued to have some liquid bowel movements but was tolerating a diet. Overnight on 12/29 the patient started spiking fevers at approximately 8 PM. He experienced respiratory distress and was noted to be hypoxemic. CXR demonstrated patchy perihilar infiltrates and COVID testing came back positive. He required BiPap for O2 support he was transferred to the ICU. Pulmonary was reconsulted. He was noted to have high procalcitonin and was started on Zosyn. He then became nauseated and surgery made him NPO and ordered dulcolax. + blood culture and possible MRSA on 12/30 started on vanco. Source of infection was unknown. Patient had prolonged positive blood cultures with staph. Infectious disease following. Patient was transitioned to daptomycin on 01/04. There is consideration for possible JOHN, however due to patient's Covid positive status cardiology recommended avoiding a JOHN at this time and repeating a transthoracic echocardiogram. This was completed and again showed an ejection fraction of 20- 25%, severe global hypokinesis of the left ventricle, moderate aortic sclerosis with moderate aortic stenosis, severe pulmonary hypertension, and no vegetation on valves. Nephrology restarted her Lasix drips on 01/07 and added Zaroxolyn on 01/08 due to worsening fluid overload. Cardio reconsulted regarding dobutamine. tagged WBC scan without pyogenic area. On 01/04 he underwent colonoscopy which showed colonic ileus. MRI lumbar spine showed no evidence of discitis with bilateral multilevel neural foraminal narrowing due to disc space narrowing and facet arthropathy. He continued to struggle with positive blood cultures. Patient seen and examined at bedside. he states sitting in the chair was good yesterday and his back pain is slightly better today but still present. It is not tolerable. He states that his breathing is somewhat improved and he can move his legs slightly easier. He is eating and drinking okay. He continues to have normal bowel movements. General: ill appearing, no idstress appears at stated age Derm: warm, dry, multiple areas of ecchymosis Head: atraumatic, normocephalic, symmetric Eyes: EOMI, no lid lag, anicteric sclera Mouth: no lip lesion, mucus membranes dry Cardiovascular: S1S2 irreg wth grade 3 ejection murmur, positive posterior tibial pulse bilateral, Lungs: + Decreased breath sounds bilateral bases, no accessory muscle use, no conversational dyspnea Abdominal: soft, bowel sounds present, nontender to palpation, no guarding, no appreciable organomegaly Ext: no gross muscle atrophy, diffuse anasarca, no contractures Neuro: CN II-XI grossly intact, no focal neuro deficits Psych: Awake alert and oriented 3 with appropriate affect Persistent MRSA bacteremia must suspect endocarditis - continue Dapto dose increased on 01/10. - ID recs: Plan to treat as presumed endocarditis - repeat blood culture 01/10 remain positive - TTE without valvular disease, patient is not a candidate for JOHN secondary to shortness of breath and recent Covid Acute exacerbation of systolic congestive heart failure with ejection fraction 20-25% -Cardiology recommendations appreciated -Strict I's and O's, daily weights -Lopressor, losartan on hold due to LULÚ -Off dobutamine, okay to restart per cardiology if needed -Lasix gtt LULÚ on CKD IIIa, metabolic acidosis - nephrology recs: Lasix gtt, Metalozone - hold losartan - Off fluids - On oral bicarb - ? need for dobutamine again, okay with cardio if needed Acute hypoxic respiratory failure secondary to CHF and rrecent COVID pneumonitis (12/30) - Wean O2 as able. - Elevated pro calcitonin likely secondary to bacteremia and not reflective of pneumonia New-onset Paroxysmal A. fib -Started on IV amiodarone and then transitioned to oral amiodarone -Eliquis. Non-STEMI with history of coronary artery disease and CABG -Cath with patent GAYLE to LAD and prior stents, no intervention needed -Continue with Plavix, Lipitor, Imdur, Lopressor Iron deficiency anemia -Follow CBC -No indication for transfusion at this point in time. - colonoscopy completed this admission no signs of polyps Diabetes mellitus type 2 with hyperglycemia - off metformin - SSI, levemir, stop insulin gtt. anticipate improvement off steroids. - follow BS - A1C 6 Hypertension - controlled - Continue with metoprolol - follow BP Dyslipidemia - Statin Chronic back pain - norco, lidodrem patch Covid-19 pneumonitis, completed therapy large bowel ileus, improved Hypomagnesemia, resolved Thrombocytopenia, resolved Cardiac event possible syncope vs cardiac arrest Hypokalemia, resolved Updated [id number] Tara over the phone DVT prophylaxis: Eliquis Discussed with: patient, nursing, Dr Kramer Anticipated discharge:undetermined Anticipated discharge place: [facility] A total of 35 minutes was spent on the care of this complex patient more than 50% of the time was spent in counseling and care coordination. Objective - Vital Signs Vital signs: Vital Signs Temp 97.9 F 01/11/21 09:00 Pulse 77 01/11/21 12:50 Resp 18 01/11/21 12:50 BP 115/71 01/11/21 12:41 Pulse Ox 94 L 01/11/21 12:41 Intake & Output 01/10/21 01/11/21 01/11/21 18:59 06:59 18:59 Intake Total 1780 60.991 344.4 Output Total 652 1050 475 Balance 1128 -989.009 -130.6 Weight 104.8 kg Intake: Intake, IV Titration 100 60.991 104.4 Amount Furosemide 100 mg In 100 100 Sodium Chloride 0.9% 90 ml @ 5 MG/HR 5 mls/hr IV .Q20H [facility] Rx#:[id number] Insulin Regular 100 unit 60.991 4.4 In Sodium Chloride 0.9% 100 ml @ Titrate IV .Q0M [facility] Rx#:[id number] Oral 1680 240 Output: Urine 650 1050 475 Stool 2 Other: Voiding Method Indwelling Catheter Indwelling Catheter Indwelling Catheter # Voids 1 # Bowel Movements 3 1 - Labs CBC & Chem 7: 01/10/21 09:31 01/11/21 08:12 Labs: Abnormal Lab Results - Last 24 Hours (Table) 01/10/21 01/10/21 01/10/21 Range/Units 09:02 17:03 18:31 Sodium (137-145) mmol/L Chloride (98-107) mmol/L Carbon Dioxide (22-30) mmol/L BUN (9-20) mg/dL Creatinine (0.66-1.25) mg/dL Glucose (74-99) mg/dL POC Glucose (mg/dL) 326 H 375 H (75-99) mg/dL Calcium (8.4-10.2) mg/dL AST (17-59) U/L ALT (4-49) U/L Total Protein (6.3-8.2) g/dL Albumin (3.5-5.0) g/dL Coronavirus (PCR) Detected A (Not Detectd) 01/10/21 01/10/21 01/10/21 Range/Units 19:15 19:56 21:07 Sodium (137-145) mmol/L Chloride (98-107) mmol/L Carbon Dioxide (22-30) mmol/L BUN (9-20) mg/dL Creatinine (0.66-1.25) mg/dL Glucose (74-99) mg/dL POC Glucose (mg/dL) 311 H 315 H 186 H (75-99) mg/dL Calcium (8.4-10.2) mg/dL AST (17-59) U/L ALT (4-49) U/L Total Protein (6.3-8.2) g/dL Albumin (3.5-5.0) g/dL Coronavirus (PCR) (Not Detectd) 01/10/21 01/11/21 01/11/21 Range/Units 22:10 01:08 03:13 Sodium (137-145) mmol/L Chloride (98-107) mmol/L Carbon Dioxide (22-30) mmol/L BUN (9-20) mg/dL Creatinine (0.66-1.25) mg/dL Glucose (74-99) mg/dL POC Glucose (mg/dL) 133 H 213 H 73 L (75-99) mg/dL Calcium (8.4-10.2) mg/dL AST (17-59) U/L ALT (4-49) U/L Total Protein (6.3-8.2) g/dL Albumin (3.5-5.0) g/dL Coronavirus (PCR) (Not Detectd) 01/11/21 01/11/21 01/11/21 Range/Units 05:28 06:32 08:12 Sodium 133 L (137-145) mmol/L Chloride 92 L (98-107) mmol/L Carbon Dioxide 32 H (22-30) mmol/L BUN 76 H (9-20) mg/dL Creatinine 1.51 H (0.66-1.25) mg/dL Glucose 141 H (74-99) mg/dL POC Glucose (mg/dL) 128 H 164 H (75-99) mg/dL Calcium 8.1 L (8.4-10.2) mg/dL AST 62 H (17-59) U/L ALT 51 H (4-49) U/L Total Protein 5.8 L (6.3-8.2) g/dL Albumin 2.7 L (3.5-5.0) g/dL Coronavirus (PCR) (Not Detectd) 01/11/21 01/11/21 01/11/21 Range/Units 08:31 10:34 12:28 Sodium (137-145) mmol/L Chloride (98-107) mmol/L Carbon Dioxide (22-30) mmol/L BUN (9-20) mg/dL Creatinine (0.66-1.25) mg/dL Glucose (74-99) mg/dL POC Glucose (mg/dL) 177 H 205 H 115 H (75-99) mg/dL Calcium (8.4-10.2) mg/dL AST (17-59) U/L ALT (4-49) U/L Total Protein (6.3-8.2) g/dL Albumin (3.5-5.0) g/dL Coronavirus (PCR) (Not Detectd) 01/11/21 Range/Units 14:36 Sodium (137-145) mmol/L Chloride (98-107) mmol/L Carbon Dioxide (22-30) mmol/L BUN (9-20) mg/dL Creatinine (0.66-1.25) mg/dL Glucose (74-99) mg/dL POC Glucose (mg/dL) 230 H (75-99) mg/dL Calcium (8.4-10.2) mg/dL AST (17-59) U/L ALT (4-49) U/L Total Protein (6.3-8.2) g/dL Albumin (3.5-5.0) g/dL Coronavirus (PCR) (Not Detectd) Microbiology - Last 24 Hours (Table) 01/10/21 09:31 Blood Culture Gram Stain - Preliminary Blood 01/09/21 06:30 Blood Culture Gram Stain - Preliminary Blood Blood Culture - Preliminary Presumptive MRSA 01/08/21 07:13 Blood Culture Gram Stain - Final Blood Blood Culture - Final Methicillin resist S. aureus 01/10/21 09:31 Blood Culture - Final Blood 01/09/21 06:32 Blood Culture - Final Blood
[2021-01-11 17:01] LABS: Glucose,Whole Blood 330 mg/dL (75-99)
--- NOTE | 2021-01-11 17:50 | PN ---
PROGRESS NOTE DATE OF SERVICE: 01/11/2021 REASON FOR FOLLOWUP: MRSA bacteremia. INTERVAL HISTORY: The patient is currently afebrile. The patient is breathing slightly comfortably today. The patient denies having any chest pain. Occasional cough. No nausea, no vomiting, no abdominal pain or diarrhea. PHYSICAL EXAMINATION: Blood pressure 115/71 with a pulse of 77. Temperature is 97.9. He is 94% on 2 L nasal cannula. General description is an elderly male up in the bed in no distress. RESPIRATORY SYSTEM: Unlabored breathing with decreased intensity of breath sounds. No wheeze. HEART: S1, S2. Regular rate and rhythm. ABDOMEN: Soft. No tenderness. LABS: Blood culture from yesterday is still positive. DIAGNOSTIC IMPRESSION AND PLAN: Patient with persistent methicillin-resistant Staphylococcus aeruginosa bacteremia concerning for endovascular source in this patient who did have an extensive workup with no clear focus. JOHN has been requested; not done. MRI of the lumbosacral spine was negative. The patient was on vancomycin; subsequently switched to daptomycin. Dose has been adjusted up. Do not add rifampin, as the patient is on amiodarone. If he has persistent bacteremia, he may need transfer to tertiary care. Continue with daptomycin at this point. Continue with supportive care. MMODL / IJN: [id number] /
--- NOTE | 2021-01-11 17:51 | P.PN ---
Subjective Progress Note Date: 01/11/21 Principal diagnosis: Acute hypoxic respiratory failure, multifactorial. 12/31/2020, patient is being seen in follow-up in the intensive care unit. The patient the patient is an acute hypoxic respiratory failure due to a combination of the congestion heart failure and coronavirus/Covid 19 related pneumonia. Note that the patient has CHF on the patient also has impaired left ventricular function with an ejection fraction of 20-25% and the patient is post cardiac catheterization and coronary stent placed earlier was noted to be normal and patent and no intervention was performed. The patient also is post brief cardiac arrest with PEA requiring CPR and return of spontaneous circulation occurred on 12/23/2020. Note that the patient's computed tomography scan of the head that was done showed no abnormalities an EEG was also normal. During the course of her treatment here in the hospital, the patient also developed an ileus with secondary abdominal distention and nausea and emesis and the CAT scan of the abdomen that was done on 12/25/2020 showed large bowel ileus. The patient has was given an enema which resulted in to a liquid bowel movement and subsequently the patient phoned 1 large bowel movement and the rest was essentially liquids. The patient is known to have CAD, previous bypass surgery, ischemic cardiomyopathy, diabetes mellitus, and she fibrillation which is a new onset in addition to hypertension and hyperlipidemia and history of colonic ileus. The patient currently is in intensive care unit. The patient is on high flow oxygen 10 L per minute nasal cannula to maintain a saturation above 90%. The was dropped to Chest x-ray showing diffuse breath and pulmonary infiltrates. The patient is being treated with a combination of Decadron which is currently being given at a dose of 6 minute grams IV every 24 hours in addition to routine vitamin supplements for Covid 19 related pneumonia. At the same time, the patient is on broad-spectrum antibiotics with a combination of Zosyn and vancomycin. The antibiotic coverage essentially empiric as the patient has an elevated pro-calcitonin level. She has developed an acute kidney injury in the creatinine is up to 2.1 from a baseline of 1.32 at time of admission. This creatinine rises was from yesterday and based on that the patient on no diuretics. This acute kidney injury was thought to be related to a various factors including diuretics and contrast and heart failure. Based on the evolving acute kidney injury, the patient was taken off the diuretics. The patient is also in atrial fibrillation. The patient on amiodarone. The patient is on long-term and to coagulation with Eliquis. Creatinine today is up to 2.48 and the patient has staph aureus On 01/01/2021, the patient is being seen for a follow-up. The patient is quite comfortable on 3 L by nasal cannula. Repeat chest x-ray was done and it showed no major interval change compared to yesterday. Meanwhile, the patient is still in the intensive care unit and he is being treated for all these comorbidities. In terms of his respiratory status, the patient is still on Decadron 6 mg daily. His inflammatory markers show an LDH of 810 with a CRP of 164 which is down compared to yesterday. He did have staph aureus in the blood which is presumptively staph aureus. Due to concern of his underlying renal failure, I stopped the vancomycin which probably has to be restarted back again. He is also on Zosyn. His pro-calcitonin level was as high as 8.8. A serum vancomycin level is not available at this point in time. Note that the patient also developed an acute kidney injury. Creatinine is at 2.5 which is slightly higher compared to yesterday. Serum bicarb is at 17 and the BUN is a 61. The patient's cardiac rhythm is still atrial fibrillation which is controlled for now. Abdominal ileus is still present as the patient's abdomen is slightly distended and patient is having liquid bowel movements. No nausea. No emesis. He is tolerating no direct for now and the patient is currently nothing by mouth. The abdominal film from yesterday showed persistence of ileus and distention of the large bowel. No abdominal pain at this point in time. As of his atrial fibrillation, the patient is on a combination of metoprolol 25 twice a day and amiodarone and the patient is on Eliquis 2.5 mg by mouth twice a day. His rate is currently controlled. His heart rate is in the mid 80s. 01/02/2021 the patient is being seen for a follow-up. In terms of his pulmonary status, the patient remains on oxygen at 2 L per minute nasal cannula. As mentioned earlier, the patient has a Covid 19 related pneumonia and the patient remains on Decadron 6 mg by mouth daily. In terms of his inflammatory markers, the levels are still pending for now and they have been ordered. Meanwhile, the patient has positive blood culture with MRSA. There are at least 3 the positive blood cultures of last dose being on 12/31/2020 and the patient remains on vancomycin. The patient is also on empiric antibiotic coverage with IV Zosyn. Follow calcitonin level has been elevated at 23 consistent with underlying sepsi s with staph aureus. The vancomycin trough was 19.7 from this morning. Vancomycin dosing adjustments is being done by pharmacy. White cell count 7.6. D-dimer is at 1.7. Creatinine is improving started around 2.1. The chest x-ray from today is showing cardiomegaly with stable bilateral pulmonary infiltrates and I will say they perihilar infiltrates have improved compared to earlier chest x-rays. In terms of his ileus, the patient is tolerating full liquid diet and he is requesting for more fluids. The patient remains in atrial fibrillation. He has cardiomyopathy with an ejection fraction of 20-25%. His rate is controlled for now with a combination of metoprolol 25 mg by mouth twice a day and amiodarone 400 mg by mouth twice a day and he is also on long-term anticoagulation with Eliquis 2.5 mg by mouth twice a day. Function continues to improve. Neck fluid balance over the past 24 hours is negative for 16 mL. He is on no diuretics for now and the Lasix and placed on hold bases underlying renal failure. 01/03/2021, the patient is persistently bacteremic with MRSA. I think this is a main ongoing issue along with his Covid 19 related pneumonia, acute kidney injury, and abdominal ileus. The blood culture from yesterday came back again positive for MRSA and the patient remains on vancomycin. I'm not absolutely sure of the source of the infection. Unlikely to be related to MRSA pneumonia. Consider endovascular infection. Echocardiogram that was done during this current admission. Days back showed no evidence of any valvular vegetation. Remains on vancomycin. The chest x-ray f showed no major abnormalities. No evidence of any significant consolidation and the findings are essentially the same compared to yesterday's film. The patient's only on 2 L of oxygen by nasal cannula. Antibiotic coverage with Zosyn and vancomycin. His white cell count today that 7.3 and the patient is afebrile. I'm also noticing improvement in his renal function and the creatinine is down to 1.5 and the diuretics has been on hold. Potassium level needs to be replaced. His LDH level is down to 850 and the CRP is down to 53 and the patient remains on Decadron. The pro- calcitonin level is still quite elevated and the level came up to 23 and this is consistent with his MRSA bacteremia/sepsis. The patient has a vancomycin trough of 12.8. He remains in atrial fibrillation. He has a poor ejection fraction of 20-25%. His fluid balance over the past 24 hours has been in the order of +1.1 L. Abdomen is still distended. The patient is having liquidy stool. The abdomen is tympanic. The plan is to do a colonoscopy. The patient has taken follow-up prep with [facility]. 01/04/2021, the patient is on 2 L of oxygen by nasal cannula. He underwent his colonoscopy this morning it is ongoing ileus and the patient was found to have no major abnormalities. He was found to have some colonic polyps. 4 report is pending for now. The patient otherwise is not having any significant respiratory distress. Renal function continues to improve in the creatinine is down to 1.1. His chest x-ray from today is still pending. The blood cultures is still showing persistent bacteremia with the blood culture from 01/02/2021 was still positive for MRSA and a subsequent blood cultures from 01/03/2021 are positive for gram-positive cocci. As such, the patient is still bacteremic. He did have MRSA in his blood. He remains on vancomycin. The trough is 12.8 from yesterday. ID is on the case. No plans for JOHN by cardiology despite this ongoing bacteremia. As of his Covid 19 infection, the patient remains on Decadron 6 mg and he will complete a total of 10 day course. I make sure that they follow-up chest x-ray is obtained from today. 01/05/2021 I'm seeing the patient for the follow-up. He is currently out of the intensive care unit and is currently on the medical floor. He remains on 2 L of oxygen by nasal cannula. No signs of any significant respiratory distress. Active issues for now are Covid 19 related pneumonia, ileus which is improved and ongoing septicemia/bacteremia with MRSA. The last blood culture from 01/04/2021 is not showing any growth yet it's early. Prior to that, his cultures from 01/03/2021 were again positive for MRSA. The patient remains on vancomycin. His vancomycin trough level is at 12.8 from 01/03/2021 and pharmacy is adjusting the dose of vancomycin. His white cell count today is at pending and the rest of the electrolytes including his renal function is stable with a creatinine of 1.0 with a BUN of 36 and a sodium of 140. He is back on diuretics and is currently taking Lasix 40 mg IV every 12 hours. He has chronic atrial fibrillation. He remains on anticoagulation with Eliquis. No other significant events otherwise for now. He is tolerating diet 01/06/2021, not to my surprise, the patient's blood cultures came back positive again for MRSA. He remains on vancomycin. I'm not sure what is the plan for this patient in terms of infectious disease and cardiology, I feel that the patient may benefit from a JOHN for diagnostic purposes. He was on vancomycin and he was switched to daptomycin by infectious disease.. He is afebrile. He is quite debilitated. He is receiving Lasix and he is in a negative fluid balance for now. He was slightly more short of breath and he was placed on 3 L of oxygen by nasal cannula and his current pulse ox is around 89-90%. As mentioned, the likelihood of this patient having a MRSA pneumonia is extremely unlikely. We'll need to look for any endovascular infection causing this persistent bacteremia with MRSA. MRI of the lumbar spine was done and showed no evidence of any abscesses. A repeat chest x-ray was done today. The patient continues to have interstitial infiltrates bilaterally mainly in the peripheries either from CHF versus Covid 19 related pneumonia as both of these cases Presents with a similar chest x-ray finding. He remains on long-term anticoagulation with Eliquis. He is also on Decadron 6 mg by mouth daily. He was started on Dapto The patient is seen today 01/08/2020 on follow-up on the regular medical floor. He is currently quite restless and short of breath. He is on 15 L high flow nasal cannula plus seen nonrebreather mask. Yesterday's x-ray revealed mild interval worsening in the acute diffuse inflammatory process within the lungs. Arterial blood gases done earlier this morning revealed a pO2 of 68, pCO2 37, pH 7.44 on 100% FiO2. Sodium 135. Potassium 3.7. Creatinine 1.1. Pro-calcitonin 0.48. Blood cultures are positive for MRSA. Patient will need for a JOHN. He is currently on daptomycin. He remains anticoagulated with Eliquis. Ejection fraction is 20-25%. He was given Lasix 40 mg IVP 1. The patient is seen today 01/08/2021 in follow-up on the selective care unit. He is currently sitting up in a chair at the bedside. Awake and alert in no acute distress. Doing quite a bit better today compared to yesterday. He is still on 15 L high flow nasal cannula and maintaining O2 saturations in the 90s. Chest x-ray continues to show diffuse interstitial opacities and extensive patchy bilateral airspace disease. Minimally improved. White count 11.9. Hemoglobin 10.4. Lymphocytes 0.2. Sodium 139. Potassium 3.7. Creatinine 1.10. He remains on bronchodilators, dexamethasone, vitamin supplements, adequately related with Eliquis. Remains on a Lasix drip at 10 mg an hour. Remains in a negative balance. Continued on daptomycin. Patient was reevaluated today patient seems to be doing much better today that he has been doing over the last few days. Breathing a lot easier. He is now only on 5 L high flow nasal cannula, and his O2 saturation is 97%. No chest x- ray was done today, but I plan to do one tomorrow. Patient remains on Lasix at 10 mg per hour, and I will cut it down to 5 mg per hour. Patient underwent/tagged study/WBC whole body scan, and it came back nondiagnostic Patient was reevaluated today on 01/10/2021, remains on 4 L nasal cannula. O2 sats is 97%, patient tells that he is still feeling fine compared to yesterday. And the day before. Remains on Lasix at 5 mg per hour IV infusion. Not much of a change in the last 24 hours, renal functioning remains borderline, hence I would continue the Lasix at the same dose may be switch him to IV push Lasix in the next 24 hours. Chest x-ray is showing significant interstitial infiltrates and edema bilaterally. CBC is relatively normal lites are normal BUN is up to 68 creatinine is 1.44. Blood sugar is 172. Reevaluated today on 01/11/2021, patient continues to do well, he is down now to 2 L nasal cannula, breathing easier, in no distress, however he remains on Lasix drip at 5 mg per hour. And I will go ahead and discontinue the Lasix drip and switch him to Lasix IV push 60 mg IV push every 12 hours. His last chest x-ray was concerning and this was done yesterday. Patient has chronic shortness of breath which is again multifactorial related to underlying Covid 19 infection/pneumonia and congestive heart failure. Objective - Vital Signs Vital signs: Vital Signs Temp 97.9 F 01/11/21 09:00 Pulse 77 01/11/21 12:50 Resp 18 01/11/21 12:50 BP 115/71 01/11/21 12:41 Pulse Ox 94 L 01/11/21 12:41 Intake & Output 01/10/21 01/11/21 01/11/21 18:59 06:59 18:59 Intake Total 1780 60.991 344.4 Output Total 652 1050 475 Balance 1128 -989.009 -130.6 Weight 104.8 kg Intake: Intake, IV Titration 100 60.991 104.4 Amount Furosemide 100 mg In 100 100 Sodium Chloride 0.9% 90 ml @ 5 MG/HR 5 mls/hr IV .Q20H BHASKAR Rx#:[id number] Insulin Regular 100 unit 60.991 4.4 In Sodium Chloride 0.9% 100 ml @ Titrate IV .Q0M BHASKAR Rx#:[id number] Oral 1680 240 Output: Urine 650 1050 475 Stool 2 Other: Voiding Method Indwelling Catheter Indwelling Catheter Indwelling Catheter # Voids 1 # Bowel Movements 3 1 - Exam General: 70-year-old gentleman, on 2 L nasal cannula, in no distress. Derm: warm, dry, multiple areas of ecchymosis Head: Head exam was generally normal. There was no scleral icterus or corneal arcus. Mucous membranes were moist. Eyes: EOMI, no lid lag, anicteric sclera Mouth: no lip lesion, mucus membranes dry Cardiovascular: Irregular irregular rhythm, 3/6 systolic murmur thought the precordium. Lungs: Very diminished breath sounds at the bases, minimal crackles only. No rhonchi and no wheezes. Abdominal: soft, + high pitched bowel sounds, nontender to palpation, no guarding, no appreciable organomegaly Ext: no gross muscle atrophy, 2+ edema b/l LE, no contractures Neuro: Alert and oriented 3, no gross focal neurologic deficits.. Psych: Normal mood, affect and normal mental status examination. - Labs CBC & Chem 7: 01/10/21 09:31 01/11/21 08:12 Labs: Abnormal Lab Results - Last 24 Hours (Table) 01/10/21 01/10/21 01/10/21 Range/Units 09:02 18:31 19:15 Sodium (137-145) mmol/L Chloride (98-107) mmol/L Carbon Dioxide (22-30) mmol/L BUN (9-20) mg/dL Creatinine (0.66-1.25) mg/dL Glucose (74-99) mg/dL POC Glucose (mg/dL) 375 H 311 H (75-99) mg/dL Calcium (8.4-10.2) mg/dL AST (17-59) U/L ALT (4-49) U/L Total Protein (6.3-8.2) g/dL Albumin (3.5-5.0) g/dL Coronavirus (PCR) Detected A (Not Detectd) 01/10/21 01/10/21 01/10/21 Range/Units 19:56 21:07 22:10 Sodium (137-145) mmol/L Chloride (98-107) mmol/L Carbon Dioxide (22-30) mmol/L BUN (9-20) mg/dL Creatinine (0.66-1.25) mg/dL Glucose (74-99) mg/dL POC Glucose (mg/dL) 315 H 186 H 133 H (75-99) mg/dL Calcium (8.4-10.2) mg/dL AST (17-59) U/L ALT (4-49) U/L Total Protein (6.3-8.2) g/dL Albumin (3.5-5.0) g/dL Coronavirus (PCR) (Not Detectd) 01/11/21 01/11/21 01/11/21 Range/Units 01:08 03:13 05:28 Sodium (137-145) mmol/L Chloride (98-107) mmol/L Carbon Dioxide (22-30) mmol/L BUN (9-20) mg/dL Creatinine (0.66-1.25) mg/dL Glucose (74-99) mg/dL POC Glucose (mg/dL) 213 H 73 L 128 H (75-99) mg/dL Calcium (8.4-10.2) mg/dL AST (17-59) U/L ALT (4-49) U/L Total Protein (6.3-8.2) g/dL Albumin (3.5-5.0) g/dL Coronavirus (PCR) (Not Detectd) 01/11/21 01/11/21 01/11/21 Range/Units 06:32 08:12 08:31 Sodium 133 L (137-145) mmol/L Chloride 92 L (98-107) mmol/L Carbon Dioxide 32 H (22-30) mmol/L BUN 76 H (9-20) mg/dL Creatinine 1.51 H (0.66-1.25) mg/dL Glucose 141 H (74-99) mg/dL POC Glucose (mg/dL) 164 H 177 H (75-99) mg/dL Calcium 8.1 L (8.4-10.2) mg/dL AST 62 H (17-59) U/L ALT 51 H (4-49) U/L Total Protein 5.8 L (6.3-8.2) g/dL Albumin 2.7 L (3.5-5.0) g/dL Coronavirus (PCR) (Not Detectd) 01/11/21 01/11/21 01/11/21 Range/Units 10:34 12:28 14:36 Sodium (137-145) mmol/L Chloride (98-107) mmol/L Carbon Dioxide (22-30) mmol/L BUN (9-20) mg/dL Creatinine (0.66-1.25) mg/dL Glucose (74-99) mg/dL POC Glucose (mg/dL) 205 H 115 H 230 H (75-99) mg/dL Calcium (8.4-10.2) mg/dL AST (17-59) U/L ALT (4-49) U/L Total Protein (6.3-8.2) g/dL Albumin (3.5-5.0) g/dL Coronavirus (PCR) (Not Detectd) 01/11/21 Range/Units 16:59 Sodium (137-145) mmol/L Chloride (98-107) mmol/L Carbon Dioxide (22-30) mmol/L BUN (9-20) mg/dL Creatinine (0.66-1.25) mg/dL Glucose (74-99) mg/dL POC Glucose (mg/dL) 330 H (75-99) mg/dL Calcium (8.4-10.2) mg/dL AST (17-59) U/L ALT (4-49) U/L Total Protein (6.3-8.2) g/dL Albumin (3.5-5.0) g/dL Coronavirus (PCR) (Not Detectd) Microbiology - Last 24 Hours (Table) 01/10/21 09:31 Blood Culture Gram Stain - Preliminary Blood 01/09/21 06:30 Blood Culture Gram Stain - Preliminary Blood Blood Culture - Preliminary Presumptive MRSA 01/08/21 07:13 Blood Culture Gram Stain - Final Blood Blood Culture - Final Methicillin resist S. aureus 01/10/21 09:31 Blood Culture - Final Blood Assessment and Plan Assessment: 1 acute hypoxic respiratory failure, currently on 2 L nasal cannula and the respiratory failure is essentially due to combination of CHF exacerbation and covid 19 related pneumonia, 2 acute covid 19 related pneumonia currently on Decadron and this to a combination of vitamin C, zinc and vitamin D. 3 CHF with impaired left ventricular function and systolic heart failure with an ejection fraction of 20-25%. The patient was taken off diuretics due to an acute kidney injury. The patient was also off losartan and off dobutamine. 4 acute kidney injury, recovered and the patient has a normal renal function for now 5 large bowel ileus, please refer to the most recent CAT scan of the abdomen and the patient was given an enema with adequate bowel movements. General surgeries on the case ,colonoscopy today Reveals no abnormalities. The patient is passing flatus and bowel movement activity 6 coronary artery disease, post non-STEMI, post cardiac catheterization with a patent GAYLE to LAD and patent previous stent inserted stents 7 new-onset atrial fibrillation, rate controlled on amiodarone and metoprolol and the patient is on long-term articulation with Eliquis, and correlation will be restarted post colonoscopy8 iron deficiency anemia 9 Diabetes mellitus type 2, currently off metformin due to acute kidney injury 10 hypertension 11 hyperlipidemia 12 thrombocytopenia, recovered 13 MRSA bacteremia, being addressed by infectious disease on the case, remains on daptomycin. Recommendation: Discontinue Lasix infusion and start Lasix 60 mg IV push every 12 hours. Continue antibiotics. Continue the Covid 19 cocktail.. Continue anticoagulation therapy. Continue oxygen at 2 L nasal cannula We'll continue to follow. Time with Patient: Less than 30
[2021-01-11 20:10] LABS: Glucose,Whole Blood 324 mg/dL (75-99)
[2021-01-11] MEDS: INSULIN DETEMIR (LEVEMIR) 100 UNIT/ML SYR SQ SCH (20:59)
[2021-01-11] MEDS: FUROSEMIDE 10 MG/ML 10 ML VIAL IV SCH (21:00)
--- NOTE | 2021-01-11 21:28 | P.PN ---
Subjective Progress Note Date: 01/11/21 CHIEF COMPLAINT: Colonic distention HISTORY OF PRESENT ILLNESS: The patient is a 70 year old male with acute on chronic congestive heart failure, chronic anticoagulation, multiple cardiopulmonary arrest, recent diagnosis coronavirus and focal segmental edema causing functional intermittent bowel obstruction. He denies any abdominal pain. He is passing flatus and having bowel bovements. REVIEW OF ORGAN SYSTEMS: No fevers or chills. No reports of abdominal pain. PHYSICAL EXAM: VITALS: Reviewed CONSTITUTIONAL: Well developed and in no acute distress. EYES: Conjuctivae without sclera icterus. Extraocular movements grossly intact. HEAD, EARS, NOSE, THROAT: Moist buccal mucosa. Head is atraumatic, normocephalic. Hears conversational speech. No nasal drainage. Wears glasses. NECK: No thyroidomegaly. RESPIRATORY: Non-labored respirations and equal bilateral excursions. CARDIOVASCULAR: Iregular rate and rhythm. ABDOMEN: No peritonitis. MUSCULOSKELETAL: No clubbing. No cyanosis. SKIN: Well perfused with good skin turgor. NEUROLOGIC: Cranial nerves II through XII grossly intact. Sensation upper and extremities intact. No focal or lateralizing signs. PSYCH: Appropriate affect. Alert and oriented to person, place and time. Displays appropriate insight. CLINCAL LABS: Reviewed. Creatinine up from 1.06 to 1.51 ASSESSMENT: 1. Abdominal distention with large bowel dilation, persistent 2. Coronary artery disease with history of stent 3. Acute on chronic congestive heart failure 4. History of recent cardiac event requiring cardiopulmonary resuscitation 5. Diabetes type 2, [id number] 6. Hypokalemia 7. Acute on chronic renal injury 8. Anemia 9. Leukopenia, improved. 10. Coronavirus positive serology 11. Functional obstruction due to colonic edema 12. MSSA bacteremia PLAN: 1. Diet as tolerated. 2. Continue antibiotics for MSSA bacteremia Objective - Vital Signs Vital signs: Vital Signs Temp 97.7 F 01/11/21 15:45 Pulse 90 01/11/21 15:45 Resp 16 01/11/21 15:45 BP 118/60 01/11/21 15:45 Pulse Ox 95 01/11/21 15:45 Intake & Output 01/11/21 01/11/21 01/12/21 06:59 18:59 06:59 Intake Total 60.991 434.4 240 Output Total 4909 494 5051 Balance -989.009 -40.6 -1360 Weight 104.8 kg Intake: IV 40 Furosemide 100 mg In 40 Sodium Chloride 0.9% 90 ml @ 5 MG/HR 5 mls/hr IV .Q20H [facility] Rx#:[id number] Intake, IV Titration 60.991 154.4 Amount DAPTOmycin 750 mg In 50 Sodium Chloride 0.9% 50 ml @ 100 mls/hr IVPB Q24H [facility] Rx#:[id number] Furosemide 100 mg In 100 Sodium Chloride 0.9% 90 ml @ 5 MG/HR 5 mls/hr IV .Q20H [facility] Rx#:[id number] Insulin Regular 100 unit 60.991 4.4 In Sodium Chloride 0.9% 100 ml @ Titrate IV .Q0M [facility] Rx#:[id number] Oral 240 240 Output: Urine 2864 773 5599 Other: Voiding Method Indwelling Catheter Indwelling Catheter # Voids 1 # Bowel Movements 1 1 - Labs CBC & Chem 7: 01/10/21 09:31 01/11/21 08:12 Labs: Abnormal Lab Results - Last 24 Hours (Table) 01/10/21 01/11/21 01/11/21 Range/Units 22:10 01:08 03:13 Sodium (137-145) mmol/L Chloride (98-107) mmol/L Carbon Dioxide (22-30) mmol/L BUN (9-20) mg/dL Creatinine (0.66-1.25) mg/dL Glucose (74-99) mg/dL POC Glucose (mg/dL) 133 H 213 H 73 L (75-99) mg/dL Calcium (8.4-10.2) mg/dL AST (17-59) U/L ALT (4-49) U/L Total Protein (6.3-8.2) g/dL Albumin (3.5-5.0) g/dL 01/11/21 01/11/21 01/11/21 Range/Units 05:28 06:32 08:12 Sodium 133 L (137-145) mmol/L Chloride 92 L (98-107) mmol/L Carbon Dioxide 32 H (22-30) mmol/L BUN 76 H (9-20) mg/dL Creatinine 1.51 H (0.66-1.25) mg/dL Glucose 141 H (74-99) mg/dL POC Glucose (mg/dL) 128 H 164 H (75-99) mg/dL Calcium 8.1 L (8.4-10.2) mg/dL AST 62 H (17-59) U/L ALT 51 H (4-49) U/L Total Protein 5.8 L (6.3-8.2) g/dL Albumin 2.7 L (3.5-5.0) g/dL 01/11/21 01/11/21 01/11/21 Range/Units 08:31 10:34 12:28 Sodium (137-145) mmol/L Chloride (98-107) mmol/L Carbon Dioxide (22-30) mmol/L BUN (9-20) mg/dL Creatinine (0.66-1.25) mg/dL Glucose (74-99) mg/dL POC Glucose (mg/dL) 177 H 205 H 115 H (75-99) mg/dL Calcium (8.4-10.2) mg/dL AST (17-59) U/L ALT (4-49) U/L Total Protein (6.3-8.2) g/dL Albumin (3.5-5.0) g/dL 01/11/21 01/11/21 01/11/21 Range/Units 14:36 16:59 20:09 Sodium (137-145) mmol/L Chloride (98-107) mmol/L Carbon Dioxide (22-30) mmol/L BUN (9-20) mg/dL Creatinine (0.66-1.25) mg/dL Glucose (74-99) mg/dL POC Glucose (mg/dL) 230 H 330 H 324 H (75-99) mg/dL Calcium (8.4-10.2) mg/dL AST (17-59) U/L ALT (4-49) U/L Total Protein (6.3-8.2) g/dL Albumin (3.5-5.0) g/dL Microbiology - Last 24 Hours (Table) 01/10/21 09:31 Blood Culture Gram Stain - Preliminary Blood 01/09/21 06:30 Blood Culture Gram Stain - Preliminary Blood Blood Culture - Preliminary Presumptive MRSA 01/08/21 07:13 Blood Culture Gram Stain - Final Blood Blood Culture - Final Methicillin resist S. aureus 01/10/21 09:31 Blood Culture - Final Blood Assessment and Plan (1) Anemia Current Visit: Yes Status: Acute Code(s): D64.9 - ANEMIA, UNSPECIFIED SNOMED Code(s): 908781132 (2) Leukopenia Current Visit: Yes Status: Acute Code(s): D72.819 - DECREASED WHITE BLOOD CELL COUNT, UNSPECIFIED SNOMED Code(s): 16850250 (3) Acute on chronic renal insufficiency Current Visit: Yes Status: Acute Code(s): N28.9 - DISORDER OF KIDNEY AND URETER, UNSPECIFIED; N18.9 - CHRONIC KIDNEY DISEASE, UNSPECIFIED SNOMED Code(s): 320635985 (4) CHF (congestive heart failure) Current Visit: Yes Status: Acute Code(s): I50.9 - HEART FAILURE, UNSPECIFIED SNOMED Code(s): 91522224 (5) Cardiopulmonary arrest Current Visit: Yes Status: Acute Code(s): I46.9 - CARDIAC ARREST, CAUSE UNSPECIFIED SNOMED Code(s): 858728710 (6) Elevated troponin Current Visit: Yes Status: Acute Code(s): R77.8 - OTHER SPECIFIED ABNORMALITIES OF PLASMA PROTEINS SNOMED Code(s): 905979025 (7) Hypokalemia Current Visit: Yes Status: Acute Code(s): E87.6 - HYPOKALEMIA SNOMED Code(s): 02693861 (8) Ileus Current Visit: Yes Status: Acute Code(s): K56.7 - ILEUS, UNSPECIFIED SNOMED Code(s): 521460107 (9) Anasarca Current Visit: Yes Status: Acute Code(s): R60.1 - GENERALIZED EDEMA SNOMED Code(s): 189008304
--- NOTE | 2021-01-11 21:33 | P.PN ---
Subjective Progress Note Date: 01/10/21 CHIEF COMPLAINT: Colonic distention HISTORY OF PRESENT ILLNESS: The patient is a 70 year old male with acute on chronic congestive heart failure, chronic anticoagulation, multiple cardiopulmonary arrest, recent diagnosis coronavirus and focal segmental edema causing functional intermittent bowel obstruction. He has completed JOHN. No nausea or vomiting. He denies any new complaints. REVIEW OF ORGAN SYSTEMS: No fevers or chills. No reports of abdominal pain. PHYSICAL EXAM: VITALS: Reviewed CONSTITUTIONAL: Well developed and in no acute distress. EYES: Conjuctivae without sclera icterus. Extraocular movements grossly intact. HEAD, EARS, NOSE, THROAT: Moist buccal mucosa. Head is atraumatic, normocephalic. Hears conversational speech. No nasal drainage. Wears glasses. NECK: No thyroidomegaly. RESPIRATORY: Non-labored respirations and equal bilateral excursions. CARDIOVASCULAR: Iregular rate and rhythm. ABDOMEN: No peritonitis. Mild distention MUSCULOSKELETAL: No clubbing. No cyanosis. SKIN: Well perfused with good skin turgor. NEUROLOGIC: Cranial nerves II through XII grossly intact. Sensation upper and extremities intact. No focal or lateralizing signs. PSYCH: Appropriate affect. Alert and oriented to person, place and time. Displays appropriate insight. CLINCAL LABS: Reviewed. WBC elevated 12.1. Creatinine 1.44 and elevated. ASSESSMENT: 1. Abdominal distention with large bowel dilation, persistent 2. Coronary artery disease with history of stent 3. Acute on chronic congestive heart failure 4. History of recent cardiac event requiring cardiopulmonary resuscitation 5. Diabetes type 2, [id number] 6. Hypokalemia 7. Acute on chronic renal injury 8. Anemia 9. Leukopenia, improved. 10. Coronavirus positive serology 11. Functional obstruction due to colonic edema 12. MSSA bacteremia PLAN: 1. Patient stable from a surgical standpoint 2. Diet as tolerated Objective - Vital Signs Vital signs: Vital Signs Temp 97.7 F 01/11/21 15:45 Pulse 90 01/11/21 15:45 Resp 16 01/11/21 15:45 BP 118/60 01/11/21 15:45 Pulse Ox 95 01/11/21 15:45 Intake & Output 01/11/21 01/11/21 01/12/21 06:59 18:59 06:59 Intake Total 60.991 434.4 240 Output Total 5348 611 3063 Balance -989.009 -40.6 -1360 Weight 104.8 kg Intake: IV 40 Furosemide 100 mg In 40 Sodium Chloride 0.9% 90 ml @ 5 MG/HR 5 mls/hr IV .Q20H [facility] Rx#:[id number] Intake, IV Titration 60.991 154.4 Amount DAPTOmycin 750 mg In 50 Sodium Chloride 0.9% 50 ml @ 100 mls/hr IVPB Q24H [facility] Rx#:[id number] Furosemide 100 mg In 100 Sodium Chloride 0.9% 90 ml @ 5 MG/HR 5 mls/hr IV .Q20H [facility] Rx#:[id number] Insulin Regular 100 unit 60.991 4.4 In Sodium Chloride 0.9% 100 ml @ Titrate IV .Q0M [facility] Rx#:[id number] Oral 240 240 Output: Urine 3607 804 4691 Other: Voiding Method Indwelling Catheter Indwelling Catheter # Voids 1 # Bowel Movements 1 1 - Labs CBC & Chem 7: 01/10/21 09:31 01/11/21 08:12 Labs: Abnormal Lab Results - Last 24 Hours (Table) 01/10/21 01/11/21 01/11/21 Range/Units 22:10 01:08 03:13 Sodium (137-145) mmol/L Chloride (98-107) mmol/L Carbon Dioxide (22-30) mmol/L BUN (9-20) mg/dL Creatinine (0.66-1.25) mg/dL Glucose (74-99) mg/dL POC Glucose (mg/dL) 133 H 213 H 73 L (75-99) mg/dL Calcium (8.4-10.2) mg/dL AST (17-59) U/L ALT (4-49) U/L Total Protein (6.3-8.2) g/dL Albumin (3.5-5.0) g/dL 01/11/21 01/11/21 01/11/21 Range/Units 05:28 06:32 08:12 Sodium 133 L (137-145) mmol/L Chloride 92 L (98-107) mmol/L Carbon Dioxide 32 H (22-30) mmol/L BUN 76 H (9-20) mg/dL Creatinine 1.51 H (0.66-1.25) mg/dL Glucose 141 H (74-99) mg/dL POC Glucose (mg/dL) 128 H 164 H (75-99) mg/dL Calcium 8.1 L (8.4-10.2) mg/dL AST 62 H (17-59) U/L ALT 51 H (4-49) U/L Total Protein 5.8 L (6.3-8.2) g/dL Albumin 2.7 L (3.5-5.0) g/dL 01/11/21 01/11/21 01/11/21 Range/Units 08:31 10:34 12:28 Sodium (137-145) mmol/L Chloride (98-107) mmol/L Carbon Dioxide (22-30) mmol/L BUN (9-20) mg/dL Creatinine (0.66-1.25) mg/dL Glucose (74-99) mg/dL POC Glucose (mg/dL) 177 H 205 H 115 H (75-99) mg/dL Calcium (8.4-10.2) mg/dL AST (17-59) U/L ALT (4-49) U/L Total Protein (6.3-8.2) g/dL Albumin (3.5-5.0) g/dL 01/11/21 01/11/21 01/11/21 Range/Units 14:36 16:59 20:09 Sodium (137-145) mmol/L Chloride (98-107) mmol/L Carbon Dioxide (22-30) mmol/L BUN (9-20) mg/dL Creatinine (0.66-1.25) mg/dL Glucose (74-99) mg/dL POC Glucose (mg/dL) 230 H 330 H 324 H (75-99) mg/dL Calcium (8.4-10.2) mg/dL AST (17-59) U/L ALT (4-49) U/L Total Protein (6.3-8.2) g/dL Albumin (3.5-5.0) g/dL Microbiology - Last 24 Hours (Table) 01/10/21 09:31 Blood Culture Gram Stain - Preliminary Blood 01/09/21 06:30 Blood Culture Gram Stain - Preliminary Blood Blood Culture - Preliminary Presumptive MRSA 01/08/21 07:13 Blood Culture Gram Stain - Final Blood Blood Culture - Final Methicillin resist S. aureus 01/10/21 09:31 Blood Culture - Final Blood Assessment and Plan (1) Anemia Current Visit: Yes Status: Acute Code(s): D64.9 - ANEMIA, UNSPECIFIED SNOMED Code(s): 131185811 (2) Leukopenia Current Visit: Yes Status: Acute Code(s): D72.819 - DECREASED WHITE BLOOD CELL COUNT, UNSPECIFIED SNOMED Code(s): 67438503 (3) Acute on chronic renal insufficiency Current Visit: Yes Status: Acute Code(s): N28.9 - DISORDER OF KIDNEY AND URETER, UNSPECIFIED; N18.9 - CHRONIC KIDNEY DISEASE, UNSPECIFIED SNOMED Code(s): 479061892 (4) CHF (congestive heart failure) Current Visit: Yes Status: Acute Code(s): I50.9 - HEART FAILURE, UNSPECIFIED SNOMED Code(s): 67382514 (5) Cardiopulmonary arrest Current Visit: Yes Status: Acute Code(s): I46.9 - CARDIAC ARREST, CAUSE UNSPECIFIED SNOMED Code(s): 557119495 (6) Elevated troponin Current Visit: Yes Status: Acute Code(s): R77.8 - OTHER SPECIFIED ABNORMALITIES OF PLASMA PROTEINS SNOMED Code(s): 164180881 (7) Hypokalemia Current Visit: Yes Status: Acute Code(s): E87.6 - HYPOKALEMIA SNOMED Code(s): 12418238 (8) Ileus Current Visit: Yes Status: Acute Code(s): K56.7 - ILEUS, UNSPECIFIED SNOMED Code(s): 490430455 (9) Anasarca Current Visit: Yes Status: Acute Code(s): R60.1 - GENERALIZED EDEMA SNOMED Code(s): 194764325
[2021-01-12 06:38] LABS: Glucose,Whole Blood 134 mg/dL (75-99)
[2021-01-12] MEDS: INSULIN ASPART (NovoLOG) 100 UNIT/ML VIAL SQ SCH ×4 (06:38→21:03)
[2021-01-12] MEDS: PANTOPRAZOLE 40 MG TABLET PO SCH (06:39)
[2021-01-12 07:30] LABS: Glucose,Whole Blood 130 mg/dL (75-99)
[2021-01-12] MEDS: ALBUTEROL HFA INHALER INHALATION PRN ×3 (07:47→15:51)
[2021-01-12] MEDS: HYDROcodone/APAP 7.5-325MG 1 EACH TAB PO PRN ×3 (08:58→22:52)
[2021-01-12 09:14] LABS: Anisocytosis Slight; HCT 29.3 % (39.0-53.0); HGB 9.5 gm/dL (13.0-17.5); Hypochromasia Slight; MCH 27.4 pg (25.0-35.0); MCHC 32.3 g/dL (31.0-37.0); MCV 84.7 fL (80.0-100.0); Platelet Count 258 k/uL (150-450); RBC 3.46 m/uL (4.30-5.90); RDW 17.2 % (11.5-15.5)
[2021-01-12 09:36] LABS: Calcium 8.1 mg/dL (8.4-10.2); Magnesium 1.9 mg/dL (1.6-2.3); Potassium 3.4 mmol/L (3.5-5.1)
[2021-01-12] MEDS: FUROSEMIDE 10 MG/ML 10 ML VIAL IV SCH ×2 (09:47→21:03)
[2021-01-12] MEDS: LIDOCAINE 5% PATCH TOPICAL SCH (09:48)
[2021-01-12] MEDS: metOLazone 5 MG TAB PO SCH (09:48)
[2021-01-12] MEDS: ISOSORBIDE MONONITRATE ER 30 MG TAB.ER.24H PO SCH (09:49)
[2021-01-12] MEDS: ASCORBIC ACID 500 MG TAB PO SCH (09:49)
[2021-01-12] MEDS: AMIODARONE 200 MG TAB PO SCH ×2 (09:49→21:03)
[2021-01-12] MEDS: allopurinoL 100 MG TAB PO SCH (09:49)
[2021-01-12] MEDS: bisacodyL 10 MG SUPP RECTAL SCH (09:49)
[2021-01-12] MEDS: ZINC SULFATE 220 MG CAP PO SCH (09:49)
[2021-01-12] MEDS: CHOLECALCIFEROL 25 MCG (1000 IU) TABLET PO SCH (09:49)
[2021-01-12] MEDS: CLOPIDOGREL 75 MG TAB PO SCH (09:49)
[2021-01-12] MEDS: APIXABAN 5 MG TAB PO SCH ×2 (09:49→21:03)
[2021-01-12] MEDS: TAMSULOSIN 0.4 MG CAP.ER.24H PO SCH ×2 (09:49→21:04)
[2021-01-12] MEDS: SIMETHICONE 40 MG/0.6 ML DROPS 2,000 MG/30 ML BOTTLE PO SCH ×4 (09:50→21:04)
[2021-01-12] MEDS: METOPROLOL TARTRATE 25 MG TAB PO SCH ×2 (09:52→21:03)
[2021-01-12 12:08] LABS: Glucose,Whole Blood 238 mg/dL (75-99)
[2021-01-12] MEDS: FERROUS SULFATE 325 MG TAB PO SCH (13:04)
[2021-01-12] MEDS: DAPTOmycin 750 MG in SODIUM CHLORIDE 0.9% 50 ML IVPB SCH (13:04)
--- NOTE | 2021-01-12 14:02 | P.PN ---
Subjective Progress Note Date: 01/12/21 (delayed charting seen at 0845) Principal diagnosis: shortness of breath Patient is a 70-year-old male with a past medical history of coronary artery disease with history of CABG in 1999, diabetes mellitus type 2, hypertension, and dyslipidemia who presented to the emergency room with shortness of breath. He was subsequently found to have an acute exacerbation of systolic congestive heart failure. He was tachypneic and hypoxic on presentation. He was started on IV heparin due to an elevated troponin. He was started on Lasix and admitted. Cardiology was consulted who agreed with continuing Lasix and IV heparin. He had some optimal diuresis and therefore his Lasix was increased to 80 mg every 8 hours. Due to his low ejection fraction of 20-25% which was newly discovered plan was for cardiac catheterization, this was completed on 12/23 his stent were found to be patent LAD was widely open, with no additional intervention required. He was noted to have worsening renal function and his lisinopril was discontinued. He was transitioned off of heparin drip and onto Eliquis. He was also started on dobutamine. He did go into A. fib and was started on IV amiodarone and then transitioned to oral amiodarone. He was noted to have worsening renal function was seen by nephrology on 12/23. They agreed with continuing dobutamine drip and maintaining a systolic blood pressure greater than 110. On the evening of 12/23 patient seen in follow going to the bathroom and was found to be unresponsive with possible loss of pulses. CPR was initiated and after 1 round of CPR ROSC was noted, concern for possible vasovagal episode. He was awake and alert and did not require intubation. He was transferred to the ICU in critical care was consulted. There was some conc kay of possible seizure activity versus true cardiac arrest. Head CT was completed which showed no acute process, EEG was normal. His transitioned off of dobutamine on 12/24. He developed abdominal distension, nausea, and abdominal pain on 12/[address] demonstrated large bowel ileus. He did have an enema which resulted in liquid bowel movement and he had one large formed BM the morning of 12/26, the rest were liquid. His renal function was slowly improving and he was kept on lasix. He started having multiple liquid bowel movements. He continued to have some liquid bowel movements but was tolerating a diet. Overnight on 12/29 the patient started spiking fevers at approximately 8 PM. He experienced respiratory distress and was noted to be hypoxemic. CXR demonstrated patchy perihilar infiltrates and COVID testing came back positive. He required BiPap for O2 support he was transferred to the ICU. Pulmonary was reconsulted. He was noted to have high procalcitonin and was started on Zosyn. He then became nauseated and surgery made him NPO and ordered dulcolax. + blood culture and possible MRSA on 12/30 started on vanco. Source of infection was unknown. Patient had prolonged positive blood cultures with staph. Infectious disease following. Patient was transitioned to daptomycin on 01/04. There is consideration for possible JOHN, however due to patient's Covid positive status cardiology recommended avoiding a JOHN at this time and repeating a transthoracic echocardiogram. This was completed and again showed an ejection fraction of 20- 25%, severe global hypokinesis of the left ventricle, moderate aortic sclerosis with moderate aortic stenosis, severe pulmonary hypertension, and no vegetation on valves. Nephrology restarted her Lasix drips on 01/07 and added Zaroxolyn on 01/08 due to worsening fluid overload. Cardio reconsulted regarding dobutamine. tagged WBC scan without pyogenic area. On 01/04 he underwent colonoscopy which showed colonic ileus. MRI lumbar spine showed no evidence of discitis with bilateral multilevel neural foraminal narrowing due to disc space narrowing and facet arthropathy. He continued to struggle with positive blood cultures. Patient seen and examined at bedside. He is requesting to again get in the chair. He denies any chest pain. He states his breathing is good. He denies any nausea, vomiting, or diarrhea. He states that sitting in the chair is what helps his back most and is asking to be put up into the chair. I explained to radha m that it will probably take a little bit of time for physical therapy to be available but that we will attempt to get him back in the chair today, he states he is as an emergency and he wants them right now. He states that his mother came to visit him yesterday. General: ill appearing, no distress, appears at stated age Derm: warm, dry, multiple areas of ecchymosis Head: atraumatic, normocephalic, symmetric Eyes: EOMI, no lid lag, anicteric sclera Mouth: no lip lesion, mucus membranes dry Cardiovascular: S1S2 irreg with grade 3 ejection murmur, positive posterior tibial pulse bilateral, Lungs: + Decreased breath sounds bilateral bases, no accessory muscle use, no conversational dyspnea Abdominal: soft, bowel sounds present, nontender to palpation, no guarding, no appreciable organomegaly Ext: no gross muscle atrophy, 2+ LE edema, no contractures Neuro: CN II-XI grossly intact, no focal neuro deficits Psych: Awake alert and oriented 3 with appropriate affect Persistent MRSA bacteremia must suspect endocarditis - continue Dapto dose increased on 01/10. - ID recs: Plan to treat as presumed endocarditis - repeat blood culture 01/11 remain positive - TTE without valvular disease, patient is not a candidate for JOHN secondary to shortness of breath and recent Covid Acute exacerbation of systolic congestive heart failure with ejection fraction 20-25% -Cardiology recommendations appreciated -Strict I's and O's, daily weights -Lopressor, losartan on hold due to LULÚ -Off dobutamine, okay to restart per cardiology if needed -Lasix IVP LULÚ on CKD IIIa, metabolic acidosis - nephrology recs: Lasix, Metalozone - hold losartan - Off fluids - On oral bicarb Acute hypoxic respiratory failure secondary to CHF and recent COVID pneumonitis (12/30) - Wean O2 as able. - Elevated pro calcitonin likely secondary to bacteremia and not reflective of pneumonia New-onset Paroxysmal A. fib -Started on IV amiodarone and then transitioned to oral amiodarone -Eliquis. Non-STEMI with history of coronary artery disease and CABG -Cath with patent GAYLE to LAD and prior stents, no intervention needed -Continue with Plavix, Lipitor, Imdur, Lopressor Iron deficiency anemia -Follow CBC -No indication for transfusion at this point in time. - colonoscopy completed this admission no signs of polyps Diabetes mellitus type 2 with hyperglycemia - off metformin - SSI, levemir, stop insulin gtt. anticipate improvement off steroids. - follow BS - A1C 6 Hypertension - controlled - Continue with metoprolol - follow BP Dyslipidemia - Statin Chronic back pain - norco, lidodrem patch Covid-19 pneumonitis, completed therapy large bowel ileus, improved Hypomagnesemia, resolved Thrombocytopenia, resolved Cardiac event possible syncope vs cardiac arrest Hypokalemia, resolved Updated [id number] Tara over the phone DVT prophylaxis: Eliquis Discussed with: patient, nursing, Dr Kramer Anticipated discharge:undetermined Anticipated discharge place: [facility] A total of 35 minutes was spent on the care of this complex patient more than 50% of the time was spent in counseling and care coordination. Objective - Vital Signs Vital signs: Vital Signs Temp 97.4 F L 01/12/21 09:45 Pulse 95 01/12/21 09:45 Resp 18 01/12/21 09:45 BP 131/70 01/12/21 09:45 Pulse Ox 93 L 01/12/21 09:45 Intake & Output 01/11/21 01/12/21 01/12/21 18:59 06:59 18:59 Intake Total 434.4 240 240 Output Total 475 2400 1 Balance -40.6 -2160 239 Weight 96 kg Intake: IV 40 Furosemide 100 mg In 40 Sodium Chloride 0.9% 90 ml @ 5 MG/HR 5 mls/hr IV .Q20H [facility] Rx#:[id number] Intake, IV Titration 154.4 Amount DAPTOmycin 750 mg In 50 Sodium Chloride 0.9% 50 ml @ 100 mls/hr IVPB Q24H [facility] Rx#:[id number] Furosemide 100 mg In 100 Sodium Chloride 0.9% 90 ml @ 5 MG/HR 5 mls/hr IV .Q20H [facility] Rx#:[id number] Insulin Regular 100 unit 4.4 In Sodium Chloride 0.9% 100 ml @ Titrate IV .Q0M [facility] Rx#:[id number] Oral 240 240 240 Output: Urine 475 2400 Stool 1 Other: Voiding Method Indwelling Catheter Indwelling Catheter Indwelling Catheter # Bowel Movements 5 - Labs CBC & Chem 7: 01/12/21 07:49 01/12/21 07:49 Labs: Abnormal Lab Results - Last 24 Hours (Table) 01/11/21 01/11/21 01/11/21 Range/Units 14:36 16:59 20:09 WBC (3.8-10.6) k/uL RBC (4.30-5.90) m/uL Hgb (13.0-17.5) gm/dL Hct (39.0-53.0) % RDW (11.5-15.5) % Sodium (137-145) mmol/L Potassium (3.5-5.1) mmol/L Chloride (98-107) mmol/L Carbon Dioxide (22-30) mmol/L BUN (9-20) mg/dL Creatinine (0.66-1.25) mg/dL Glucose (74-99) mg/dL POC Glucose (mg/dL) 230 H 330 H 324 H (75-99) mg/dL Calcium (8.4-10.2) mg/dL 01/12/21 01/12/21 01/12/21 Range/Units 06:36 07:28 07:49 WBC 13.0 H (3.8-10.6) k/uL RBC 3.46 L (4.30-5.90) m/uL Hgb 9.5 L (13.0-17.5) gm/dL Hct 29.3 L (39.0-53.0) % RDW 17.2 H (11.5-15.5) % Sodium (137-145) mmol/L Potassium (3.5-5.1) mmol/L Chloride (98-107) mmol/L Carbon Dioxide (22-30) mmol/L BUN (9-20) mg/dL Creatinine (0.66-1.25) mg/dL Glucose (74-99) mg/dL POC Glucose (mg/dL) 134 H 130 H (75-99) mg/dL Calcium (8.4-10.2) mg/dL 01/12/21 01/12/21 Range/Units 07:49 12:07 WBC (3.8-10.6) k/uL RBC (4.30-5.90) m/uL Hgb (13.0-17.5) gm/dL Hct (39.0-53.0) % RDW (11.5-15.5) % Sodium 131 L (137-145) mmol/L Potassium 3.4 L (3.5-5.1) mmol/L Chloride 92 L (98-107) mmol/L Carbon Dioxide 33 H (22-30) mmol/L BUN 88 H (9-20) mg/dL Creatinine 1.42 H (0.66-1.25) mg/dL Glucose 102 H (74-99) mg/dL POC Glucose (mg/dL) 238 H (75-99) mg/dL Calcium 8.1 L (8.4-10.2) mg/dL Microbiology - Last 24 Hours (Table) 01/11/21 08:12 Blood Culture Gram Stain - Preliminary Blood Blood Culture - Preliminary Staphylococcus aureus 01/09/21 06:30 Blood Culture Gram Stain - Final Blood Blood Culture - Final Methicillin resist S. aureus 01/11/21 08:12 Blood Culture - Final Blood 01/10/21 09:31 Blood Culture Gram Stain - Preliminary Blood Blood Culture - Preliminary Presumptive MRSA
[2021-01-12] MEDS ORDERED: POTASSIUM CHLORIDE ER 20 MEQ TAB.ER PO STA (14:43)
--- NOTE | 2021-01-12 15:08 | P.PN ---
Subjective Progress Note Date: 01/12/21 Follow-up for acute kidney injury. Good urine output.Neck negative of 2.2 L Objective - Vital Signs Vital signs: Vital Signs Temp 98.3 F 01/12/21 12:25 Pulse 86 01/12/21 12:25 Resp 20 01/12/21 14:00 BP 112/63 01/12/21 12:25 Pulse Ox 96 01/12/21 12:25 Intake & Output 01/11/21 01/12/21 01/12/21 18:59 06:59 18:59 Intake Total 434.4 240 770 Output Total 475 2400 1 Balance -40.6 -2160 769 Weight 96 kg Intake: IV 40 Furosemide 100 mg In 40 Sodium Chloride 0.9% 90 ml @ 5 MG/HR 5 mls/hr IV .Q20H [facility] Rx#:[id number] Intake, IV Titration 154.4 50 Amount DAPTOmycin 750 mg In 50 50 Sodium Chloride 0.9% 50 ml @ 100 mls/hr IVPB Q24H [facility] Rx#:[id number] Furosemide 100 mg In 100 Sodium Chloride 0.9% 90 ml @ 5 MG/HR 5 mls/hr IV .Q20H [facility] Rx#:[id number] Insulin Regular 100 unit 4.4 In Sodium Chloride 0.9% 100 ml @ Titrate IV .Q0M [facility] Rx#:[id number] Oral 240 240 720 Output: Urine 475 2400 Stool 1 Other: Voiding Method Indwelling Catheter Indwelling Catheter Indwelling Catheter # Bowel Movements 5 - Exam No acute distress S1-S2 heard Decreased breath sounds Edema - Labs CBC & Chem 7: 01/12/21 07:49 01/12/21 07:49 Labs: Abnormal Lab Results - Last 24 Hours (Table) 01/11/21 01/11/21 01/12/21 Range/Units 16:59 20:09 06:36 WBC (3.8-10.6) k/uL RBC (4.30-5.90) m/uL Hgb (13.0-17.5) gm/dL Hct (39.0-53.0) % RDW (11.5-15.5) % Sodium (137-145) mmol/L Potassium (3.5-5.1) mmol/L Chloride (98-107) mmol/L Carbon Dioxide (22-30) mmol/L BUN (9-20) mg/dL Creatinine (0.66-1.25) mg/dL Glucose (74-99) mg/dL POC Glucose (mg/dL) 330 H 324 H 134 H (75-99) mg/dL Calcium (8.4-10.2) mg/dL 01/12/21 01/12/21 01/12/21 Range/Units 07:28 07:49 07:49 WBC 13.0 H (3.8-10.6) k/uL RBC 3.46 L (4.30-5.90) m/uL Hgb 9.5 L (13.0-17.5) gm/dL Hct 29.3 L (39.0-53.0) % RDW 17.2 H (11.5-15.5) % Sodium 131 L (137-145) mmol/L Potassium 3.4 L (3.5-5.1) mmol/L Chloride 92 L (98-107) mmol/L Carbon Dioxide 33 H (22-30) mmol/L BUN 88 H (9-20) mg/dL Creatinine 1.42 H (0.66-1.25) mg/dL Glucose 102 H (74-99) mg/dL POC Glucose (mg/dL) 130 H (75-99) mg/dL Calcium 8.1 L (8.4-10.2) mg/dL 01/12/21 Range/Units 12:07 WBC (3.8-10.6) k/uL RBC (4.30-5.90) m/uL Hgb (13.0-17.5) gm/dL Hct (39.0-53.0) % RDW (11.5-15.5) % Sodium (137-145) mmol/L Potassium (3.5-5.1) mmol/L Chloride (98-107) mmol/L Carbon Dioxide (22-30) mmol/L BUN (9-20) mg/dL Creatinine (0.66-1.25) mg/dL Glucose (74-99) mg/dL POC Glucose (mg/dL) 238 H (75-99) mg/dL Calcium (8.4-10.2) mg/dL Microbiology - Last 24 Hours (Table) 01/11/21 08:12 Blood Culture Gram Stain - Preliminary Blood Blood Culture - Preliminary Presumptive MRSA 01/09/21 06:30 Blood Culture Gram Stain - Final Blood Blood Culture - Final Methicillin resist S. aureus 01/11/21 08:12 Blood Culture - Final Blood 01/10/21 09:31 Blood Culture Gram Stain - Preliminary Blood Blood Culture - Preliminary Presumptive MRSA Assessment and Plan Assessment: #1 nonoliguric acute kidney injury secondary to type I CRS #2 Chronickidney disease stage III secondary to recurrent acute kidney injury/type to CRS with a baseline creatinine of 1.3 MG per DL. #3 CHF with systolic dysfunction EF of 20% #4 volume overloaded #5 Covid 19 pneumonia #6 MRSA bacteremia Plan: 1 continue with Lasix 60 mg IV twice a day #2 renal function stable #3 avoid nephrotoxic agents and hypotensive episodes
--- NOTE | 2021-01-12 16:33 | P.PN ---
Subjective Progress Note Date: 01/12/21 Principal diagnosis: Acute hypoxic respiratory failure, multifactorial. 12/31/2020, patient is being seen in follow-up in the intensive care unit. The patient the patient is an acute hypoxic respiratory failure due to a combination of the congestion heart failure and coronavirus/Covid 19 related pneumonia. Note that the patient has CHF on the patient also has impaired left ventricular function with an ejection fraction of 20-25% and the patient is post cardiac catheterization and coronary stent placed earlier was noted to be normal and patent and no intervention was performed. The patient also is post brief cardiac arrest with PEA requiring CPR and return of spontaneous circulation occurred on 12/23/2020. Note that the patient's computed tomography scan of the head that was done showed no abnormalities an EEG was also normal. During the course of her treatment here in the hospital, the patient also developed an ileus with secondary abdominal distention and nausea and emesis and the CAT scan of the abdomen that was done on 12/25/2020 showed large bowel ileus. The patient has was given an enema which resulted in to a liquid bowel movement and subsequently the patient phoned 1 large bowel movement and the rest was essentially liquids. The patient is known to have CAD, previous bypass surgery, ischemic cardiomyopathy, diabetes mellitus, and she fibrillation which is a new onset in addition to hypertension and hyperlipidemia and history of colonic ileus. The patient currently is in intensive care unit. The patient is on high flow oxygen 10 L per minute nasal cannula to maintain a saturation above 90%. The was dropped to Chest x-ray showing diffuse breath and pulmonary infiltrates. The patient is being treated with a combination of Decadron which is currently being given at a dose of 6 minute grams IV every 24 hours in addition to routine vitamin supplements for Covid 19 related pneumonia. At the same time, the patient is on broad-spectrum antibiotics with a combination of Zosyn and vancomycin. The antibiotic coverage essentially empiric as the patient has an elevated pro-calcitonin level. She has developed an acute kidney injury in the creatinine is up to 2.1 from a baseline of 1.32 at time of admission. This creatinine rises was from yesterday and based on that the patient on no diuretics. This acute kidney injury was thought to be related to a various factors including diuretics and contrast and heart failure. Based on the evolving acute kidney injury, the patient was taken off the diuretics. The patient is also in atrial fibrillation. The patient on amiodarone. The patient is on long-term and to coagulation with Eliquis. Creatinine today is up to 2.48 and the patient has staph aureus On 01/01/2021, the patient is being seen for a follow-up. The patient is quite comfortable on 3 L by nasal cannula. Repeat chest x-ray was done and it showed no major interval change compared to yesterday. Meanwhile, the patient is still in the intensive care unit and he is being treated for all these comorbidities. In terms of his respiratory status, the patient is still on Decadron 6 mg daily. His inflammatory markers show an LDH of 810 with a CRP of 164 which is down compared to yesterday. He did have staph aureus in the blood which is presumptively staph aureus. Due to concern of his underlying renal failure, I stopped the vancomycin which probably has to be restarted back again. He is also on Zosyn. His pro-calcitonin level was as high as 8.8. A serum vancomycin level is not available at this point in time. Note that the patient also developed an acute kidney injury. Creatinine is at 2.5 which is slightly higher compared to yesterday. Serum bicarb is at 17 and the BUN is a 61. The patient's cardiac rhythm is still atrial fibrillation which is controlled for now. Abdominal ileus is still present as the patient's abdomen is slightly distended and patient is having liquid bowel movements. No nausea. No emesis. He is tolerating no direct for now and the patient is currently nothing by mouth. The abdominal film from yesterday showed persistence of ileus and distention of the large bowel. No abdominal pain at this point in time. As of his atrial fibrillation, the patient is on a combination of metoprolol 25 twice a day and amiodarone and the patient is on Eliquis 2.5 mg by mouth twice a day. His rate is currently controlled. His heart rate is in the mid 80s. 01/02/2021 the patient is being seen for a follow-up. In terms of his pulmonary status, the patient remains on oxygen at 2 L per minute nasal cannula. As mentioned earlier, the patient has a Covid 19 related pneumonia and the patient remains on Decadron 6 mg by mouth daily. In terms of his inflammatory markers, the levels are still pending for now and they have been ordered. Meanwhile, the patient has positive blood culture with MRSA. There are at least 3 the positive blood cultures of last dose being on 12/31/2020 and the patient remains on vancomycin. The patient is also on empiric antibiotic coverage with IV Zosyn. Follow calcitonin level has been elevated at 23 consistent with underlying sepsi s with staph aureus. The vancomycin trough was 19.7 from this morning. Vancomycin dosing adjustments is being done by pharmacy. White cell count 7.6. D-dimer is at 1.7. Creatinine is improving started around 2.1. The chest x-ray from today is showing cardiomegaly with stable bilateral pulmonary infiltrates and I will say they perihilar infiltrates have improved compared to earlier chest x-rays. In terms of his ileus, the patient is tolerating full liquid diet and he is requesting for more fluids. The patient remains in atrial fibrillation. He has cardiomyopathy with an ejection fraction of 20-25%. His rate is controlled for now with a combination of metoprolol 25 mg by mouth twice a day and amiodarone 400 mg by mouth twice a day and he is also on long-term anticoagulation with Eliquis 2.5 mg by mouth twice a day. Function continues to improve. Neck fluid balance over the past 24 hours is negative for 16 mL. He is on no diuretics for now and the Lasix and placed on hold bases underlying renal failure. 01/03/2021, the patient is persistently bacteremic with MRSA. I think this is a main ongoing issue along with his Covid 19 related pneumonia, acute kidney injury, and abdominal ileus. The blood culture from yesterday came back again positive for MRSA and the patient remains on vancomycin. I'm not absolutely sure of the source of the infection. Unlikely to be related to MRSA pneumonia. Consider endovascular infection. Echocardiogram that was done during this current admission. Days back showed no evidence of any valvular vegetation. Remains on vancomycin. The chest x-ray f showed no major abnormalities. No evidence of any significant consolidation and the findings are essentially the same compared to yesterday's film. The patient's only on 2 L of oxygen by nasal cannula. Antibiotic coverage with Zosyn and vancomycin. His white cell count today that 7.3 and the patient is afebrile. I'm also noticing improvement in his renal function and the creatinine is down to 1.5 and the diuretics has been on hold. Potassium level needs to be replaced. His LDH level is down to 850 and the CRP is down to 53 and the patient remains on Decadron. The pro- calcitonin level is still quite elevated and the level came up to 23 and this is consistent with his MRSA bacteremia/sepsis. The patient has a vancomycin trough of 12.8. He remains in atrial fibrillation. He has a poor ejection fraction of 20-25%. His fluid balance over the past 24 hours has been in the order of +1.1 L. Abdomen is still distended. The patient is having liquidy stool. The abdomen is tympanic. The plan is to do a colonoscopy. The patient has taken follow-up prep with [facility]. 01/04/2021, the patient is on 2 L of oxygen by nasal cannula. He underwent his colonoscopy this morning it is ongoing ileus and the patient was found to have no major abnormalities. He was found to have some colonic polyps. 4 report is pending for now. The patient otherwise is not having any significant respiratory distress. Renal function continues to improve in the creatinine is down to 1.1. His chest x-ray from today is still pending. The blood cultures is still showing persistent bacteremia with the blood culture from 01/02/2021 was still positive for MRSA and a subsequent blood cultures from 01/03/2021 are positive for gram-positive cocci. As such, the patient is still bacteremic. He did have MRSA in his blood. He remains on vancomycin. The trough is 12.8 from yesterday. ID is on the case. No plans for JOHN by cardiology despite this ongoing bacteremia. As of his Covid 19 infection, the patient remains on Decadron 6 mg and he will complete a total of 10 day course. I make sure that they follow-up chest x-ray is obtained from today. 01/05/2021 I'm seeing the patient for the follow-up. He is currently out of the intensive care unit and is currently on the medical floor. He remains on 2 L of oxygen by nasal cannula. No signs of any significant respiratory distress. Active issues for now are Covid 19 related pneumonia, ileus which is improved and ongoing septicemia/bacteremia with MRSA. The last blood culture from 01/04/2021 is not showing any growth yet it's early. Prior to that, his cultures from 01/03/2021 were again positive for MRSA. The patient remains on vancomycin. His vancomycin trough level is at 12.8 from 01/03/2021 and pharmacy is adjusting the dose of vancomycin. His white cell count today is at pending and the rest of the electrolytes including his renal function is stable with a creatinine of 1.0 with a BUN of 36 and a sodium of 140. He is back on diuretics and is currently taking Lasix 40 mg IV every 12 hours. He has chronic atrial fibrillation. He remains on anticoagulation with Eliquis. No other significant events otherwise for now. He is tolerating diet 01/06/2021, not to my surprise, the patient's blood cultures came back positive again for MRSA. He remains on vancomycin. I'm not sure what is the plan for this patient in terms of infectious disease and cardiology, I feel that the patient may benefit from a JOHN for diagnostic purposes. He was on vancomycin and he was switched to daptomycin by infectious disease.. He is afebrile. He is quite debilitated. He is receiving Lasix and he is in a negative fluid balance for now. He was slightly more short of breath and he was placed on 3 L of oxygen by nasal cannula and his current pulse ox is around 89-90%. As mentioned, the likelihood of this patient having a MRSA pneumonia is extremely unlikely. We'll need to look for any endovascular infection causing this persistent bacteremia with MRSA. MRI of the lumbar spine was done and showed no evidence of any abscesses. A repeat chest x-ray was done today. The patient continues to have interstitial infiltrates bilaterally mainly in the peripheries either from CHF versus Covid 19 related pneumonia as both of these cases Presents with a similar chest x-ray finding. He remains on long-term anticoagulation with Eliquis. He is also on Decadron 6 mg by mouth daily. He was started on Dapto The patient is seen today 01/08/2020 on follow-up on the regular medical floor. He is currently quite restless and short of breath. He is on 15 L high flow nasal cannula plus seen nonrebreather mask. Yesterday's x-ray revealed mild interval worsening in the acute diffuse inflammatory process within the lungs. Arterial blood gases done earlier this morning revealed a pO2 of 68, pCO2 37, pH 7.44 on 100% FiO2. Sodium 135. Potassium 3.7. Creatinine 1.1. Pro-calcitonin 0.48. Blood cultures are positive for MRSA. Patient will need for a JOHN. He is currently on daptomycin. He remains anticoagulated with Eliquis. Ejection fraction is 20-25%. He was given Lasix 40 mg IVP 1. The patient is seen today 01/08/2021 in follow-up on the selective care unit. He is currently sitting up in a chair at the bedside. Awake and alert in no acute distress. Doing quite a bit better today compared to yesterday. He is still on 15 L high flow nasal cannula and maintaining O2 saturations in the 90s. Chest x-ray continues to show diffuse interstitial opacities and extensive patchy bilateral airspace disease. Minimally improved. White count 11.9. Hemoglobin 10.4. Lymphocytes 0.2. Sodium 139. Potassium 3.7. Creatinine 1.10. He remains on bronchodilators, dexamethasone, vitamin supplements, adequately related with Eliquis. Remains on a Lasix drip at 10 mg an hour. Remains in a negative balance. Continued on daptomycin. Patient was reevaluated today patient seems to be doing much better today that he has been doing over the last few days. Breathing a lot easier. He is now only on 5 L high flow nasal cannula, and his O2 saturation is 97%. No chest x- ray was done today, but I plan to do one tomorrow. Patient remains on Lasix at 10 mg per hour, and I will cut it down to 5 mg per hour. Patient underwent/tagged study/WBC whole body scan, and it came back nondiagnostic Patient was reevaluated today on 01/10/2021, remains on 4 L nasal cannula. O2 sats is 97%, patient tells that he is still feeling fine compared to yesterday. And the day before. Remains on Lasix at 5 mg per hour IV infusion. Not much of a change in the last 24 hours, renal functioning remains borderline, hence I would continue the Lasix at the same dose may be switch him to IV push Lasix in the next 24 hours. Chest x-ray is showing significant interstitial infiltrates and edema bilaterally. CBC is relatively normal lites are normal BUN is up to 68 creatinine is 1.44. Blood sugar is 172. Reevaluated today on 01/11/2021, patient continues to do well, he is down now to 2 L nasal cannula, breathing easier, in no distress, however he remains on Lasix drip at 5 mg per hour. And I will go ahead and discontinue the Lasix drip and switch him to Lasix IV push 60 mg IV push every 12 hours. His last chest x-ray was concerning and this was done yesterday. Patient has chronic shortness of breath which is again multifactorial related to underlying Covid 19 infection/pneumonia and congestive heart failure. Reevaluated today on 01/12/2021, patient remains on 2 L nasal cannula, sating at a bedside chair, in no distress. Yesterday I discontinued his Lasix drip and I started him on Lasix IV push at 60 mg IV push every 12 hours. Continues to have good urine output, his weight has gone down from 105-96 kg over the last 24 hours. His creatinine continues to improve, it is 1.4 today compared to 1.51 yesterday. Patient seems to be more comfortable than he was few days ago before the Lasix infusion. Objective - Vital Signs Vital signs: Vital Signs Temp 98.3 F 01/12/21 12:25 Pulse 86 01/12/21 12:25 Resp 20 01/12/21 14:00 BP 112/63 01/12/21 12:25 Pulse Ox 96 01/12/21 12:25 Intake & Output 01/11/21 01/12/21 01/12/21 18:59 06:59 18:59 Intake Total 434.4 240 990 Output Total 475 2400 1351 Balance -40.6 -2160 -361 Weight 96 kg Intake: IV 40 Furosemide 100 mg In 40 Sodium Chloride 0.9% 90 ml @ 5 MG/HR 5 mls/hr IV .Q20H [facility] Rx#:[id number] Intake, IV Titration 154.4 50 Amount DAPTOmycin 750 mg In 50 50 Sodium Chloride 0.9% 50 ml @ 100 mls/hr IVPB Q24H [facility] Rx#:[id number] Furosemide 100 mg In 100 Sodium Chloride 0.9% 90 ml @ 5 MG/HR 5 mls/hr IV .Q20H [facility] Rx#:[id number] Insulin Regular 100 unit 4.4 In Sodium Chloride 0.9% 100 ml @ Titrate IV .Q0M [facility] Rx#:[id number] Oral 240 240 940 Output: Urine 475 2400 1350 Stool 1 Other: Voiding Method Indwelling Catheter Indwelling Catheter Indwelling Catheter # Bowel Movements 5 - Exam General: 70-year-old gentleman, on 2 L nasal cannula, in no distress. Derm: warm, dry, multiple areas of ecchymosis Head: Head exam was generally normal. There was no scleral icterus or corneal arcus. Mucous membranes were moist. Eyes: EOMI, no lid lag, anicteric sclera Mouth: no lip lesion, mucus membranes dry Cardiovascular: Irregular irregular rhythm, 3/6 systolic murmur thought the precordium. Lungs: Very diminished breath sounds at the bases, minimal crackles only. No rhonchi and no wheezes. Abdominal: soft, + high pitched bowel sounds, nontender to palpation, no guarding, no appreciable organomegaly Ext: no gross muscle atrophy, 2+ edema b/l LE, no contractures Neuro: Alert and oriented 3, no gross focal neurologic deficits.. Psych: Normal mood, affect and normal mental status examination. - Labs CBC & Chem 7: 01/12/21 07:49 01/12/21 07:49 Labs: Abnormal Lab Results - Last 24 Hours (Table) 01/11/21 01/11/21 01/12/21 Range/Units 16:59 20:09 06:36 WBC (3.8-10.6) k/uL RBC (4.30-5.90) m/uL Hgb (13.0-17.5) gm/dL Hct (39.0-53.0) % RDW (11.5-15.5) % Sodium (137-145) mmol/L Potassium (3.5-5.1) mmol/L Chloride (98-107) mmol/L Carbon Dioxide (22-30) mmol/L BUN (9-20) mg/dL Creatinine (0.66-1.25) mg/dL Glucose (74-99) mg/dL POC Glucose (mg/dL) 330 H 324 H 134 H (75-99) mg/dL Calcium (8.4-10.2) mg/dL 01/12/21 01/12/21 01/12/21 Range/Units 07:28 07:49 07:49 WBC 13.0 H (3.8-10.6) k/uL RBC 3.46 L (4.30-5.90) m/uL Hgb 9.5 L (13.0-17.5) gm/dL Hct 29.3 L (39.0-53.0) % RDW 17.2 H (11.5-15.5) % Sodium 131 L (137-145) mmol/L Potassium 3.4 L (3.5-5.1) mmol/L Chloride 92 L (98-107) mmol/L Carbon Dioxide 33 H (22-30) mmol/L BUN 88 H (9-20) mg/dL Creatinine 1.42 H (0.66-1.25) mg/dL Glucose 102 H (74-99) mg/dL POC Glucose (mg/dL) 130 H (75-99) mg/dL Calcium 8.1 L (8.4-10.2) mg/dL 01/12/21 Range/Units 12:07 WBC (3.8-10.6) k/uL RBC (4.30-5.90) m/uL Hgb (13.0-17.5) gm/dL Hct (39.0-53.0) % RDW (11.5-15.5) % Sodium (137-145) mmol/L Potassium (3.5-5.1) mmol/L Chloride (98-107) mmol/L Carbon Dioxide (22-30) mmol/L BUN (9-20) mg/dL Creatinine (0.66-1.25) mg/dL Glucose (74-99) mg/dL POC Glucose (mg/dL) 238 H (75-99) mg/dL Calcium (8.4-10.2) mg/dL Microbiology - Last 24 Hours (Table) 01/11/21 08:12 Blood Culture Gram Stain - Preliminary Blood Blood Culture - Preliminary Presumptive MRSA 01/09/21 06:30 Blood Culture Gram Stain - Final Blood Blood Culture - Final Methicillin resist S. aureus 01/11/21 08:12 Blood Culture - Final Blood 01/10/21 09:31 Blood Culture Gram Stain - Preliminary Blood Blood Culture - Preliminary Presumptive MRSA Assessment and Plan Assessment: 1 acute hypoxic respiratory failure, currently on 2 L nasal cannula and the respiratory failure is essentially due to combination of CHF exacerbation and covid 19 related pneumonia, 2 acute covid 19 related pneumonia currently on Decadron and this to a combin ation of vitamin C, zinc and vitamin D. 3 CHF with impaired left ventricular function and systolic heart failure with an ejection fraction of 20-25%. The patient was taken off diuretics due to an a cute kidney injury. The patient was also off losartan and off dobutamine. 4 acute kidney injury, recovered and the patient has a normal renal function for now 5 large bowel ileus, please refer to the most recent CAT scan of the abdomen and the patient was given an enema with adequate bowel movements. General surgeries on the case ,colonoscopy today Reveals no abnormalities. The patient is p assing flatus and bowel movement activity 6 coronary artery disease, post non-STEMI, post cardiac catheterization with a patent GAYLE to LAD and patent previous stent inserted stents 7 new-onset atrial fibrillation, rate controlled on amiodarone and metoprolol and the patient is on long-term articulation with Eliquis, and correlation will be restarted post colonoscopy8 iron deficiency anemia 9 Diabetes mellitus type 2, currently off metformin due to acute kidney injury 10 hypertension 11 hyperlipidemia 12 thrombocytopenia, recovered 13 MRSA bacteremia, being addressed by infectious disease on the case, remains on daptomycin. Recommendation: Continue Lasix IV push. Continue antibiotics. Continue the Covid 19 cocktail.. Continue anticoagulation therapy. Continue oxygen at 2 L nasal cannula We will sign off for now, and follow the patient on when necessary basis. His cardiac issues and renal issues are addressed by other consultants. Long-term prognosis remains extremely poor Time with Patient: Less than 30
[2021-01-12 17:16] LABS: Glucose,Whole Blood 122 mg/dL (75-99)
--- NOTE | 2021-01-12 19:40 | PN ---
PROGRESS NOTE DATE OF SERVICE: 01/12/2021 REASON FOR FOLLOWUP: MRSA bacteremia, possible endovascular source. INTERVAL HISTORY: Patient is currently afebrile. He is breathing better, breathing comfortably. Denies having any chest pain, shortness of breath or cough. No abdominal pain or diarrhea. PHYSICAL EXAMINATION: Blood pressure is 127/66, pulse of 107, temperature 99.1. He is 94%. General description is an elderly male lying in bed in no distress. Respiratory system: Unlabored breathing, decreased breath sounds at bases. No wheeze. HEART: S1, S2. Regular rate and rhythm. ABDOMEN: Soft, no tenderness. LABS: Creatinine 1.4, white count 13,000. Blood culture from yesterday is positive. DIAGNOSTIC IMPRESSION AND PLAN: Patient with persistent MRSA bacteremia with high clinical suspicion for endovascular source in this patient now with persistent bacteremia despite being on 8 mg/kg of daptomycin. We will increase the dose to 10 mg/kg to hopefully clear of his bacteremia. Also, daily blood cultures and continue with supportive care. MMODL / IJN: [id number] /
[2021-01-12 20:03] LABS: Glucose,Whole Blood 283 mg/dL (75-99)
[2021-01-12] MEDS: INSULIN DETEMIR (LEVEMIR) 100 UNIT/ML SYR SQ SCH (21:03)
[2021-01-13] MEDS: ACETAMINOPHEN TAB 325 MG TAB PO PRN (04:58)
[2021-01-13 06:34] LABS: Glucose,Whole Blood 172 mg/dL (75-99)
[2021-01-13] MEDS: PANTOPRAZOLE 40 MG TABLET PO SCH (06:37)
[2021-01-13] MEDS: INSULIN ASPART (NovoLOG) 100 UNIT/ML VIAL SQ SCH ×4 (06:37→20:12)
[2021-01-13 07:30] LABS: Anisocytosis Slight; HCT 26.7 % (39.0-53.0); HGB 9.2 gm/dL (13.0-17.5); MCH 28.6 pg (25.0-35.0); MCHC 34.5 g/dL (31.0-37.0); Platelet Count 225 k/uL (150-450); RBC 3.22 m/uL (4.30-5.90); RDW 17.1 % (11.5-15.5); WBC 15.6 k/uL (3.8-10.6)
[2021-01-13 07:42] LABS: Calcium 8.2 mg/dL (8.4-10.2); Magnesium 1.8 mg/dL (1.6-2.3)
[2021-01-13] MEDS ORDERED: POTASSIUM CHLORIDE ER 20 MEQ TAB.ER PO STA (08:38)
[2021-01-13] MEDS: ALBUTEROL HFA INHALER INHALATION PRN ×2 (09:23→16:44)
[2021-01-13] MEDS: FUROSEMIDE 10 MG/ML 10 ML VIAL IV SCH ×2 (09:55→20:11)
[2021-01-13] MEDS: CHOLECALCIFEROL 25 MCG (1000 IU) TABLET PO SCH (09:56)
[2021-01-13] MEDS: CLOPIDOGREL 75 MG TAB PO SCH (09:56)
[2021-01-13] MEDS: APIXABAN 5 MG TAB PO SCH ×2 (09:56→20:11)
[2021-01-13] MEDS: TAMSULOSIN 0.4 MG CAP.ER.24H PO SCH ×2 (09:56→20:12)
[2021-01-13] MEDS: ASCORBIC ACID 500 MG TAB PO SCH (09:56)
[2021-01-13] MEDS: ZINC SULFATE 220 MG CAP PO SCH (09:56)
[2021-01-13] MEDS: ISOSORBIDE MONONITRATE ER 30 MG TAB.ER.24H PO SCH (09:56)
[2021-01-13] MEDS: allopurinoL 100 MG TAB PO SCH (09:56)
[2021-01-13] MEDS: METOPROLOL TARTRATE 25 MG TAB PO SCH ×2 (09:56→20:12)
[2021-01-13] MEDS: AMIODARONE 200 MG TAB PO SCH ×2 (09:56→20:10)
[2021-01-13] MEDS: FERROUS SULFATE 325 MG TAB PO SCH (09:56)
[2021-01-13] MEDS: SIMETHICONE 40 MG/0.6 ML DROPS 2,000 MG/30 ML BOTTLE PO SCH ×4 (09:57→20:13)
[2021-01-13] MEDS: bisacodyL 10 MG SUPP RECTAL SCH (09:57)
[2021-01-13] MEDS: POTASSIUM CHLORIDE 10 MEQ in WATER FOR INJECTION 1 100ML.BAG IVPB SCH ×4 (09:58→15:21)
[2021-01-13] MEDS: metOLazone 5 MG TAB PO SCH (09:59)
[2021-01-13] MEDS: LIDOCAINE 5% PATCH TOPICAL SCH (09:59)
[2021-01-13] MEDS: HYDROcodone/APAP 7.5-325MG 1 EACH TAB PO PRN (10:05)
[2021-01-13] MEDS: ALPRAZolam 0.25 MG TAB PO PRN ×2 (10:05→20:10)
[2021-01-13 12:31] LABS: Glucose,Whole Blood 102 mg/dL (75-99)
--- NOTE | 2021-01-13 12:38 | P.PN ---
Subjective Progress Note Date: 01/13/21 (delayed charting seen at approx 0904) Principal diagnosis: shortness of breath Patient is a 70-year-old male with a past medical history of coronary artery disease with history of CABG in 1999, diabetes mellitus type 2, hypertension, and dyslipidemia who presented to the emergency room with shortness of breath. He was subsequently found to have an acute exacerbation of systolic congestive heart failure. He was tachypneic and hypoxic on presentation. He was started on IV heparin due to an elevated troponin. He was started on Lasix and admitted. Cardiology was consulted who agreed with continuing Lasix and IV heparin. He had some optimal diuresis and therefore his Lasix was increased to 80 mg every 8 hours. Due to his low ejection fraction of 20-25% which was newly discovered plan was for cardiac catheterization, this was completed on 12/23 his stent were found to be patent LAD was widely open, with no additional intervention required. He was noted to have worsening renal function and his lisinopril was discontinued. He was transitioned off of heparin drip and onto Eliquis. He was also started on dobutamine. He did go into A. fib and was started on IV amiodarone and then transitioned to oral amiodarone. He was noted to have worsening renal function was seen by nephrology on 12/23. They agreed with continuing dobutamine drip and maintaining a systolic blood pressure greater than 110. On the evening of 12/23 patient seen in follow going to the bathroom and was found to be unresponsive with possible loss of pulses. CPR was initiated and after 1 round of CPR ROSC was noted, concern for possible vasovagal episode. He was awake and alert and did not require intubation. He was transferred to the ICU in critical care was consulted. There was some concern of possible seizure activity versus true cardiac arrest. Head CT was completed which showed no acute process, EEG was normal. His transitioned off of dobutamine on 12/24. He developed abdominal distension, nausea, and abdominal pain on 12/[address] demonstrated large bowel ileus. He did have an enema which resulted in liquid bowel movement and he had one large formed BM the morning of 12/26, the rest were liquid. His renal function was slowly improving and he was kept on lasix. He started having multiple liquid bowel movements. He continued to have some liquid bowel movements but was tolerating a diet. Overnight on 12/29 the patient started spiking fevers at approximately 8 PM. He experienced respiratory distress and was noted to be hypoxemic. CXR demonstrated patchy perihilar infiltrates and COVID testing came back positive. He required BiPap for O2 support he was transferred to the ICU. Pulmonary was reconsulted. He was noted to have high procalcitonin and was started on Zosyn. He then became nauseated and surgery made him NPO and ordered dulcolax. + blood culture and p ossible MRSA on 12/30 started on vanco. Source of infection was unknown. Patient had prolonged positive blood cultures with staph. Infectious disease following. Patient was transitioned to daptomycin on 01/04. There is consideration for possible JOHN, however due to patient's Covid positive status cardiology recommended avoiding a JOHN at this time and repeating a transthoracic echocardiogram. This was completed and again showed an ejection fraction of 20- 25%, severe global hypokinesis of the left ventricle, moderate aortic sclerosis with moderate aortic stenosis, severe pulmonary hypertension, and no vegetation on valves. Nephrology restarted her Lasix drips on 01/07 and added Zaroxolyn on 01/08 due to worsening fluid overload. Cardio reconsulted regarding dobutamine. tagged WBC scan without pyogenic area. On 01/04 he underwent colonoscopy which showed colonic ileus. MRI lumbar spine showed no evidence of discitis with bilateral multilevel neural foraminal narrowing due to disc space narrowing and facet arthropathy. He continued to struggle with positive blood cultures. Patient seen and examined at bedside. He is feeling better today. He wants his oxygen off. He denies nausea, and vomiting, states that he has been eating and drinking well. General: ill appearing, no distress, appears at stated age Derm: warm, dry, multiple areas of ecchymosis Head: atraumatic, normocephalic, symmetric Eyes: EOMI, no lid lag, anicteric sclera Mouth: no lip lesion, mucus membranes dry Cardiovascular: S1S2 irreg with grade 3 ejection murmur, positive posterior tibial pulse bilateral, Lungs: + Decreased breath sounds bilateral bases, no accessory muscle use, no conversational dyspnea Abdominal: soft, bowel sounds present, nontender to palpation, no guarding, no appreciable organomegaly Ext: no gross muscle atrophy, 1+ LE edema, no contractures Neuro: CN II-XI grossly intact, no focal neuro deficits Psych: Awake alert and oriented 3 with appropriate affect Persistent MRSA bacteremia must suspect endocarditis - continue Dapto dose increased on 01/12. - ID recs: Plan to treat as presumed endocarditis - repeat blood culture 01/11 remain positive - TTE without valvular disease, patient is not a candidate for JOHN secondary to shortness of breath and recent Covid Acute exacerbation of systolic congestive heart failure with ejection fraction 20-25% -Cardiology recommendations appreciated -Strict I's and O's, daily weights -Lopressor, losartan on hold due to LULÚ -Off dobutamine, okay to restart per cardiology if needed -Lasix IVP LULÚ on CKD IIIa, metabolic acidosis - nephrology recs: Lasix, Metalozone - hold losartan - Off fluids - On oral bicarb Acute hypoxic respiratory failure secondary to CHF and recent COVID pneumonitis (12/30) - Wean O2 as able. - Elevated pro calcitonin likely secondary to bacteremia and not reflective of pneumonia New-onset Paroxysmal A. fib -Started on IV amiodarone and then transitioned to oral amiodarone -Eliquis. Non-STEMI with history of coronary artery disease and CABG -Cath with patent GAYLE to LAD and prior stents, no intervention needed -Continue with Plavix, Lipitor, Imdur, Lopressor Iron deficiency anemia -Follow CBC -No indication for transfusion at this point in time. - colonoscopy completed this admission no signs of polyps Diabetes mellitus type 2 with hyperglycemia - off metformin - SSI, levemir, stop insulin gtt. anticipate improvement off steroids. - follow BS - A1C 6 Hypertension - controlled - Continue with metoprolol - follow BP Dyslipidemia - Statin Chronic back pain - norco, lidodrem patch Covid-19 pneumonitis, completed therapy large bowel ileus, improved Hypomagnesemia, resolved Thrombocytopenia, resolved Cardiac event possible syncope vs cardiac arrest Hypokalemia, resolved Updated [id number] Tara over the phone DVT prophylaxis: Cara Discussed with: patient, nursing, Dr Kramer Anticipated discharge:undetermined Anticipated discharge place: [facility] A total of 35 minutes was spent on the care of this complex patient more than 50% of the time was spent in counseling and care coordination. Objective - Vital Signs Vital signs: Vital Signs Temp 97.8 F 01/13/21 07:15 Pulse 121 H 01/13/21 07:15 Resp 18 01/13/21 07:15 BP 124/77 01/13/21 07:15 Pulse Ox 91 L 01/13/21 07:15 Intake & Output 01/12/21 01/13/21 01/13/21 18:59 06:59 18:59 Intake Total 990 480 487 Output Total 1351 2050 800 Balance -361 -1570 -313 Weight 101.5 kg Intake: IV 10 Invasive Line 8 10 Intake, IV Titration 50 Amount DAPTOmycin 750 mg In 50 Sodium Chloride 0.9% 50 ml @ 100 mls/hr IVPB Q24H [facility] Rx#:[id number] Oral 940 480 477 Output: Urine 1350 2050 800 Stool 1 Other: Voiding Method Indwelling Catheter Indwelling Catheter Indwelling Catheter - Labs CBC & Chem 7: 01/13/21 07:00 01/13/21 07:00 Labs: Abnormal Lab Results - Last 24 Hours (Table) 01/12/21 01/12/21 01/13/21 Range/Units 17:15 20:01 06:33 WBC (3.8-10.6) k/uL RBC (4.30-5.90) m/uL Hgb (13.0-17.5) gm/dL Hct (39.0-53.0) % RDW (11.5-15.5) % Sodium (137-145) mmol/L Potassium (3.5-5.1) mmol/L Chloride (98-107) mmol/L Carbon Dioxide (22-30) mmol/L BUN (9-20) mg/dL Creatinine (0.66-1.25) mg/dL Glucose (74-99) mg/dL POC Glucose (mg/dL) 122 H 283 H 172 H (75-99) mg/dL Calcium (8.4-10.2) mg/dL 01/13/21 01/13/21 Range/Units 07:00 07:00 WBC 15.6 H (3.8-10.6) k/uL RBC 3.22 L (4.30-5.90) m/uL Hgb 9.2 L (13.0-17.5) gm/dL Hct 26.7 L (39.0-53.0) % RDW 17.1 H (11.5-15.5) % Sodium 131 L (137-145) mmol/L Potassium 3.0 L (3.5-5.1) mmol/L Chloride 90 L (98-107) mmol/L Carbon Dioxide 33 H (22-30) mmol/L BUN 85 H (9-20) mg/dL Creatinine 1.67 H (0.66-1.25) mg/dL Glucose 100 H (74-99) mg/dL POC Glucose (mg/dL) (75-99) mg/dL Calcium 8.2 L (8.4-10.2) mg/dL Microbiology - Last 24 Hours (Table) 01/12/21 07:49 Blood Culture Gram Stain - Preliminary Blood 01/12/21 07:49 Blood Culture - Final Blood 01/10/21 09:31 Blood Culture Gram Stain - Final Blood Blood Culture - Final Methicillin resist S. aureus 01/11/21 08:12 Blood Culture Gram Stain - Preliminary Blood Blood Culture - Preliminary Presumptive MRSA 01/09/21 06:30 Blood Culture Gram Stain - Final Blood Blood Culture - Final Methicillin resist S. aureus
--- NOTE | 2021-01-13 13:19 | XR ---
EXAMINATION TYPE: XR chest 1V portable DATE OF EXAM: 01/13/2021 Comparison: 01/10/2021 Clinical History: 70-year-old male CHF Findings: Median sternotomy wires are present with post-CABG clips in the mediastinum. Heart mildly enlarged. D iffuse airspace opacity persists. No sizable effusion on the frontal view. Atherosclerotic arterial c alcifications. Impression: Bilateral pulmonary edema similar to minimally improved from prior.
--- NOTE | 2021-01-13 13:22 | P.PN ---
Subjective Progress Note Date: 01/13/21 Follow-up for acute kidney injury. Good urine output.net negative of 2.0 L Objective - Vital Signs Vital signs: Vital Signs Temp 97.8 F 01/13/21 07:15 Pulse 121 H 01/13/21 07:15 Resp 18 01/13/21 07:15 BP 124/77 01/13/21 07:15 Pulse Ox 91 L 01/13/21 07:15 Intake & Output 01/12/21 01/13/21 01/13/21 18:59 06:59 18:59 Intake Total 990 480 724 Output Total 1351 2050 800 Balance -361 -1570 -76 Weight 101.5 kg Intake: IV 10 Invasive Line 8 10 Intake, IV Titration 50 Amount DAPTOmycin 750 mg In 50 Sodium Chloride 0.9% 50 ml @ 100 mls/hr IVPB Q24H [facility] Rx#:[id number] Oral 940 480 714 Output: Urine 1350 2050 800 Stool 1 Other: Voiding Method Indwelling Catheter Indwelling Catheter Indwelling Catheter - Exam No acute distress S1-S2 heard Decreased breath sounds Edema - Labs CBC & Chem 7: 01/13/21 07:00 01/13/21 07:00 Labs: Abnormal Lab Results - Last 24 Hours (Table) 01/12/21 01/12/21 01/13/21 Range/Units 17:15 20:01 06:33 WBC (3.8-10.6) k/uL RBC (4.30-5.90) m/uL Hgb (13.0-17.5) gm/dL Hct (39.0-53.0) % RDW (11.5-15.5) % Sodium (137-145) mmol/L Potassium (3.5-5.1) mmol/L Chloride (98-107) mmol/L Carbon Dioxide (22-30) mmol/L BUN (9-20) mg/dL Creatinine (0.66-1.25) mg/dL Glucose (74-99) mg/dL POC Glucose (mg/dL) 122 H 283 H 172 H (75-99) mg/dL Calcium (8.4-10.2) mg/dL 01/13/21 01/13/21 01/13/21 Range/Units 07:00 07:00 12:08 WBC 15.6 H (3.8-10.6) k/uL RBC 3.22 L (4.30-5.90) m/uL Hgb 9.2 L (13.0-17.5) gm/dL Hct 26.7 L (39.0-53.0) % RDW 17.1 H (11.5-15.5) % Sodium 131 L (137-145) mmol/L Potassium 3.0 L (3.5-5.1) mmol/L Chloride 90 L (98-107) mmol/L Carbon Dioxide 33 H (22-30) mmol/L BUN 85 H (9-20) mg/dL Creatinine 1.67 H (0.66-1.25) mg/dL Glucose 100 H (74-99) mg/dL POC Glucose (mg/dL) 102 H (75-99) mg/dL Calcium 8.2 L (8.4-10.2) mg/dL Microbiology - Last 24 Hours (Table) 01/12/21 07:49 Blood Culture Gram Stain - Preliminary Blood 01/12/21 07:49 Blood Culture - Final Blood 01/10/21 09:31 Blood Culture Gram Stain - Final Blood Blood Culture - Final Methicillin resist S. aureus 01/11/21 08:12 Blood Culture Gram Stain - Preliminary Blood Blood Culture - Preliminary Presumptive MRSA Assessment and Plan Assessment: #1 nonoliguric acute kidney injury secondary to type I CRS #2 Chronickidney disease stage III secondary to recurrent acute kidney injury/type to CRS with a baseline creatinine of 1.3 MG per DL. #3 CHF with systolic dysfunction EF of 20% #4 volume overloaded #5 Covid 19 pneumonia #6 MRSA bacteremia Plan: 1 continue with Lasix 60 mg IV twice a day #2 renal function stable #3 avoid nephrotoxic agents and hypotensive episodes #4 replace electrolytes
[2021-01-13 17:47] LABS: Glucose,Whole Blood 182 mg/dL (75-99)
--- NOTE | 2021-01-13 19:26 | PN ---
PROGRESS NOTE DATE OF SERVICE: 01/13/2021 REASON FOR FOLLOWUP: MRSA bacteremia concerning for endocarditis. INTERVAL HISTORY: The patient did spike a fever of 101.7 this morning. The patient afebrile since then. The patient is feeling slightly better. He is breathing comfortably. He did have a cough, not bringing any sputum. No vomiting or abdominal pain, no diarrhea. PHYSICAL EXAMINATION: Blood pressure 106/72, pulse of 87, temp is 97.8. He is 93% on 2 L nasal cannula. General description is an elderly male lying in bed in no distress. Respiratory system: Unlabored breathing, decreased breath sounds at the base, no wheeze. Heart S1, S2. Regular rate and rhythm. Abdomen soft, no tenderness. LABS: Hemoglobin 9.4, WBC 15.2, BUN 85, creatinine 1.67. Blood cultures from the 3rd positive as well. DIAGNOSTIC IMPRESSION AND PLAN: Patient with persistent MRSA bacteremia concerning for endovascular source in this patient who did have a MRI of the lumbosacral spine that was negative. He did have multiple x-rays. No evidence of any pneumonia, mostly pulmonary edema. WBC scan was negative as well. Possible transfer out. He is currently on 10 mg/kg of daptomycin with daily blood work, blood cultures. Prognosis remains to be guarded. Plan of care discussed with the admitting physician. MMOLAYINKAL / RENETTAN: [id number] /
[2021-01-13 20:00] LABS: Glucose,Whole Blood 273 mg/dL (75-99)
[2021-01-13] MEDS: INSULIN DETEMIR (LEVEMIR) 100 UNIT/ML SYR SQ SCH (20:12)
[2021-01-14 01:20] LABS: Glucose,Whole Blood 80 mg/dL (75-99)
[2021-01-14 05:56] LABS: Glucose,Whole Blood 83 mg/dL (75-99)
[2021-01-14] MEDS: INSULIN ASPART (NovoLOG) 100 UNIT/ML VIAL SQ SCH ×4 (06:28→23:31)
[2021-01-14] MEDS: PANTOPRAZOLE 40 MG TABLET PO SCH (06:29)
[2021-01-14 07:47] LABS: Glucose,Whole Blood 73 mg/dL (75-99)
[2021-01-14 08:15] LABS: Anisocytosis Slight; HCT 25.3 % (39.0-53.0); HGB 8.5 gm/dL (13.0-17.5); MCH 28.2 pg (25.0-35.0); MCHC 33.7 g/dL (31.0-37.0); MCV 83.6 fL (80.0-100.0); Mean Platelet Volume 7.7; Platelet Count 172 k/uL (150-450); RBC 3.03 m/uL (4.30-5.90); RDW 17.4 % (11.5-15.5); WBC 13.2 k/uL (3.8-10.6)
[2021-01-14 08:29] LABS: Albumin 2.3 g/dL (3.5-5.0); Calcium 7.9 mg/dL (8.4-10.2); Magnesium 1.9 mg/dL (1.6-2.3); Potassium 3.2 mmol/L (3.5-5.1); Total Protein 5.1 g/dL (6.3-8.2)
--- NOTE | 2021-01-14 08:29 | CT ---
EXAMINATION TYPE: CT brain wo con DATE OF EXAM: 01/14/2021 COMPARISON: 12/24/2020 HISTORY: Confusion, consistently + blood cultures, sepsis CT DLP: 1090.[address] of the brain was performed. The ventricles, basal cisterns and sulci overlying the cerebral convexities demonstrate mild enlargem ent. There is no evidence for intracranial hemorrhage or sulcal effacement. There is decreased attenuation about the periventricular white matter and deep white matter of both c erebral hemispheres, compatible with chronic small vessel ischemia. Differential diagnosis does inclu de demyelination. No mass effects are seen.No midline shift. Osseous calvarium is intact. If symptoms persist consider MRI. IMPRESSION: 1. Age related atrophic and chronic small vessel ischemic change without acute intracranial process s een at this time.
[2021-01-14 08:31] LABS: INR 1.2 (<1.2); Prothrombin Time 12.3 sec (9.0-12.0)
[2021-01-14] MEDS ORDERED: DEXTROSE 50% SYRINGE 50 ML IVP STA (08:31)
--- NOTE | 2021-01-14 08:48 | P.PN ---
Subjective Progress Note Date: 01/14/21 CHIEF COMPLAINT: Ileus HISTORY OF PRESENT ILLNESS: The patient is a 70 year old male with acute on chr onic congestive heart failure, chronic anticoagulation, multiple cardiopulmonary arrest, recent diagnosis coronavirus and focal segmental edema causing functional intermittent bowel obstruction. Per discussion with nursing, patient is becoming septic. On exam he is more lethargic. He denies any abdominal pain. He is tolerating regular diet. He expresses he wants to go home. REVIEW OF ORGAN SYSTEMS: No fevers or chills. Has change in mental status with lethargy. PHYSICAL EXAM: VITALS: Reviewed CONSTITUTIONAL: Well developed and in no acute distress. EYES: Conjuctivae without sclera icterus. Extraocular movements grossly intact. HEAD, EARS, NOSE, THROAT: Moist buccal mucosa. Head is atraumatic, normocephalic. Hears conversational speech. No nasal drainage. Wears glasses. NECK: No thyroidomegaly. RESPIRATORY: On exam. CARDIOVASCULAR: Iregular rate and rhythm. ABDOMEN: No peritonitis. MUSCULOSKELETAL: No clubbing. No cyanosis. SKIN: Well perfused with good skin turgor. NEUROLOGIC: Cranial nerves II through XII grossly intact. Sensation upper and extremities intact. No focal or lateralizing signs. PSYCH: Alert to person. CLINCAL LABS: Reviewed. WBC elevated at 15.6 now down to 13.2. Hemoglobin was anemia 8.5. Glucose low 45. MICRIOBIOLGY: 01/13/2021 with gram-positive cocci with MRSA bacteremia ASSESSMENT: 1. Abdominal distention with large bowel dilation, persistent 2. Coronary artery disease with history of stent 3. Acute on chronic congestive heart failure 4. History of recent cardiac event requiring cardiopulmonary resuscitation 5. Diabetes type 2, [id number] 6. Hypokalemia 7. Acute on chronic renal injury 8. Anemia 9. Leukopenia, improved. 10. Coronavirus positive serology 11. Functional obstruction due to colonic edema 12. MRSA bacteremia 13. Hypoglycemia. PLAN: 1. Overall, patient has global decline in the past week. 2. From the abdomen standpoint, no peritonitis or abdomen as a cause for infection. 3. Recommend correction of hypoglycemia 4. Prognosis becoming guarded Objective - Vital Signs Vital signs: Vital Signs Temp 97.5 F L 01/14/21 05:05 Pulse 113 H 01/14/21 05:05 Resp 25 H 01/14/21 05:05 BP 152/92 01/14/21 05:05 Pulse Ox 93 L 01/14/21 05:05 Intake & Output 01/13/21 01/14/21 01/14/21 18:59 06:59 18:59 Intake Total 1171 20 Output Total 1802 602 Balance -631 -582 Weight 95 kg Intake: IV 20 20 Invasive Line 8 20 20 Oral 1151 Output: Urine 1800 600 Stool 2 2 Other: Voiding Method Indwelling Catheter Indwelling Catheter # Bowel Movements 1 - Labs CBC & Chem 7: 01/14/21 07:54 01/14/21 07:47 Labs: Abnormal Lab Results - Last 24 Hours (Table) 01/13/21 01/13/21 01/13/21 Range/Units 12:08 17:43 19:59 WBC (3.8-10.6) k/uL RBC (4.30-5.90) m/uL Hgb (13.0-17.5) gm/dL Hct (39.0-53.0) % RDW (11.5-15.5) % PT (9.0-12.0) sec INR (<1.2) Sodium (137-145) mmol/L Potassium (3.5-5.1) mmol/L Chloride (98-107) mmol/L Carbon Dioxide (22-30) mmol/L BUN (9-20) mg/dL Creatinine (0.66-1.25) mg/dL Glucose (74-99) mg/dL POC Glucose (mg/dL) 102 H 182 H 273 H (75-99) mg/dL Calcium (8.4-10.2) mg/dL ALT (4-49) U/L Total Protein (6.3-8.2) g/dL Albumin (3.5-5.0) g/dL 01/14/21 01/14/21 01/14/21 Range/Units 07:44 07:47 07:54 WBC 13.2 H (3.8-10.6) k/uL RBC 3.03 L (4.30-5.90) m/uL Hgb 8.5 L (13.0-17.5) gm/dL Hct 25.3 L (39.0-53.0) % RDW 17.4 H (11.5-15.5) % PT (9.0-12.0) sec INR (<1.2) Sodium 130 L (137-145) mmol/L Potassium 3.2 L (3.5-5.1) mmol/L Chloride 91 L (98-107) mmol/L Carbon Dioxide 34 H (22-30) mmol/L BUN 91 H (9-20) mg/dL Creatinine 1.69 H (0.66-1.25) mg/dL Glucose 47 L* (74-99) mg/dL POC Glucose (mg/dL) 73 L (75-99) mg/dL Calcium 7.9 L (8.4-10.2) mg/dL ALT 57 H (4-49) U/L Total Protein 5.1 L (6.3-8.2) g/dL Albumin 2.3 L (3.5-5.0) g/dL 01/14/21 Range/Units 07:54 WBC (3.8-10.6) k/uL RBC (4.30-5.90) m/uL Hgb (13.0-17.5) gm/dL Hct (39.0-53.0) % RDW (11.5-15.5) % PT 12.3 H (9.0-12.0) sec INR 1.2 H (<1.2) Sodium (137-145) mmol/L Potassium (3.5-5.1) mmol/L Chloride (98-107) mmol/L Carbon Dioxide (22-30) mmol/L BUN (9-20) mg/dL Creatinine (0.66-1.25) mg/dL Glucose (74-99) mg/dL POC Glucose (mg/dL) (75-99) mg/dL Calcium (8.4-10.2) mg/dL ALT (4-49) U/L Total Protein (6.3-8.2) g/dL Albumin (3.5-5.0) g/dL Microbiology - Last 24 Hours (Table) 01/13/21 07:00 Blood Culture Gram Stain - Preliminary Blood 01/13/21 07:00 Blood Culture - Final Blood 01/12/21 07:49 Blood Culture Gram Stain - Preliminary Blood Blood Culture - Preliminary Presumptive MRSA 01/11/21 08:12 Blood Culture Gram Stain - Final Blood Blood Culture - Final Methicillin resist S. aureus Assessment and Plan (1) Anemia Current Visit: Yes Status: Acute Code(s): D64.9 - ANEMIA, UNSPECIFIED SNOMED Code(s): 204151587 (2) Leukopenia Current Visit: Yes Status: Acute Code(s): D72.819 - DECREASED WHITE BLOOD CELL COUNT, UNSPECIFIED SNOMED Code(s): 78560091 (3) Acute on chronic renal insufficiency Current Visit: Yes Status: Acute Code(s): N28.9 - DISORDER OF KIDNEY AND URETER, UNSPECIFIED; N18.9 - CHRONIC KIDNEY DISEASE, UNSPECIFIED SNOMED Code(s): 089450131 (4) CHF (congestive heart failure) Current Visit: Yes Status: Acute Code(s): I50.9 - HEART FAILURE, UNSPECIFIED SNOMED Code(s): 25641534 (5) Cardiopulmonary arrest Current Visit: Yes Status: Acute Code(s): I46.9 - CARDIAC ARREST, CAUSE UNSPECIFIED SNOMED Code(s): 437728256 (6) Elevated troponin Current Visit: Yes Status: Acute Code(s): R77.8 - OTHER SPECIFIED ABNORMALITIES OF PLASMA PROTEINS SNOMED Code(s): 704640814 (7) Hypokalemia Current Visit: Yes Status: Acute Code(s): E87.6 - HYPOKALEMIA SNOMED Co de(s): 59308147 (8) Ileus Current Visit: Yes Status: Acute Code(s): K56.7 - ILEUS, UNSPECIFIED SNOMED Code(s): 700452033 (9) Anasarca Current Visit: Yes Status: Acute Code(s): R60.1 - GENERALIZED EDEMA SNOMED Code(s): 303262486
[2021-01-14] MEDS: SIMETHICONE 40 MG/0.6 ML DROPS 2,000 MG/30 ML BOTTLE PO SCH ×4 (08:50→20:07)
[2021-01-14] MEDS: CLOPIDOGREL 75 MG TAB PO SCH (08:51)
[2021-01-14] MEDS: metOLazone 5 MG TAB PO SCH (08:51)
[2021-01-14] MEDS: CHOLECALCIFEROL 25 MCG (1000 IU) TABLET PO SCH (08:51)
[2021-01-14] MEDS: APIXABAN 5 MG TAB PO SCH ×2 (08:51→20:07)
[2021-01-14] MEDS: TAMSULOSIN 0.4 MG CAP.ER.24H PO SCH ×2 (08:51→20:07)
[2021-01-14] MEDS: ASCORBIC ACID 500 MG TAB PO SCH (08:51)
[2021-01-14] MEDS: AMIODARONE 200 MG TAB PO SCH ×2 (08:51→20:07)
[2021-01-14] MEDS: FUROSEMIDE 10 MG/ML 10 ML VIAL IV SCH ×2 (08:51→20:07)
[2021-01-14] MEDS: allopurinoL 100 MG TAB PO SCH (08:51)
[2021-01-14] MEDS: bisacodyL 10 MG SUPP RECTAL SCH (08:52)
[2021-01-14] MEDS: ZINC SULFATE 220 MG CAP PO SCH (08:52)
[2021-01-14] MEDS: METOPROLOL TARTRATE 25 MG TAB PO SCH ×2 (08:52→20:07)
[2021-01-14] MEDS: LIDOCAINE 5% PATCH TOPICAL SCH (08:53)
[2021-01-14] MEDS: ISOSORBIDE MONONITRATE ER 30 MG TAB.ER.24H PO SCH (09:00)
[2021-01-14] MEDS: ALBUTEROL HFA INHALER INHALATION PRN ×3 (09:34→20:34)
--- NOTE | 2021-01-14 10:12 | XR ---
EXAMINATION TYPE: XR chest 1V portable DATE OF EXAM: 01/14/2021 Comparison: 01/13/2021 Clinical History: 70-year-old male CHF Findings: Median sternotomy wires are present with post-CABG clips in the mediastinum. Heart mildly enlarged. P rogressive, worsening bilateral airspace opacities. No sizable effusion seen on the frontal view. Impression: Cardiomegaly and worsening bilateral airspace disease/pulmonary edema.
[2021-01-14] MEDS: POTASSIUM BICARBONATE/CIT AC 20 MEQ TABLET.EFF PO SCH ×2 (10:30→11:30)
[2021-01-14] MEDS: IOPAMIDOL CONTRAST (ORAL USE) VIAL PO PRN ×2 (12:00→13:00)
[2021-01-14] MEDS: FERROUS SULFATE 325 MG TAB PO SCH (12:17)
[2021-01-14 12:31] LABS: Glucose,Whole Blood 142 mg/dL (75-99)
--- NOTE | 2021-01-14 12:56 | P.PN ---
Subjective Progress Note Date: 01/14/21 Principal diagnosis: shortness of breath Patient is a 70-year-old male with a past medical history of coronary artery disease with history of CABG in 1999, diabetes mellitus type 2, hypertension, and dyslipidemia who presented to the emergency room with shortness of breath. He was subsequently found to have an acute exacerbation of systolic congestive heart failure. He was tachypneic and hypoxic on presentation. He was started on IV heparin due to an elevated troponin. He was started on Lasix and admitted. Cardiology was consulted who agreed with continuing Lasix and IV heparin. He had some optimal diuresis and therefore his Lasix was increased to 80 mg every 8 hours. Due to his low ejection fraction of 20-25% which was newly discovered plan was for cardiac catheterization, this was completed on 12/23 his stent were found to be patent LAD was widely open, with no additional intervention required. He was noted to have worsening renal function and his lisinopril was discontinued. He was transitioned off of heparin drip and onto Eliquis. He was also started on dobutamine. He did go into A. fib and was started on IV amiodarone and then transitioned to oral amiodarone. He was noted to have worsening renal function was seen by nephrology on 12/23. They agreed with continuing dobutamine drip and maintaining a systolic blood pressure greater than 110. On the evening of 12/23 patient seen in follow going to the bathroom and was found to be unresponsive with possible loss of pulses. CPR was initiated and after 1 round of CPR ROSC was noted, concern for possible vasovagal episode. He was awake and alert and did not require intubation. He was transferred to the ICU in critical care was consulted. There was some concern of possible seizure activity versus true cardiac arrest. Head CT was completed which showed no acute process, EEG was normal. His transitioned off of dobutamine on 12/24. He developed abdominal distension, nausea, and abdominal pain on 12/[address] demonstrated large bowel ileus. He did have an enema which resulted in liquid bowel movement and he had one large formed BM the morning of 12/26, the rest were liquid. His renal function was slowly improving and he was kept on lasix. He started having multiple liquid bowel movements. He continued to have some liquid bowel movements but was tolerating a diet. Overnight on 12/29 the patient started spiking fevers at approximately 8 PM. He experienced respiratory distress and was noted to be hypoxemic. CXR demonstrated patchy perihilar infiltrates and COVID testing came back positive. He required BiPap for O2 support he was transferred to the ICU. Pulmonary was reconsulted. He was noted to have high procalcitonin and was started on Zosyn. He then became nauseated and surgery made him NPO and ordered dulcolax. + blood culture and possible MRSA on 12/30 started on vanco. Source of infection was unknown. Patient had prolonged positive blood cultures with staph. Infectious disease following. Patient was transitioned to daptomycin on 01/04. There is consideration for possible JOHN, however due to patient's Covid positive status cardiology recommended avoiding a JOHN at this time and repeating a transthoracic echocardiogram. This was completed and again showed an ejection fraction of 20- 25%, severe global hypokinesis of the left ventricle, moderate aortic sclerosis with moderate aortic stenosis, severe pulmonary hypertension, and no vegetation on valves. Nephrology restarted her Lasix drips on 01/07 and added Zaroxolyn on 01/08 due to worsening fluid overload. Cardio reconsulted regarding dobutamine. tagged WBC scan without pyogenic area. On 01/04 he underwent colonoscopy which showed colonic ileus. MRI lumbar spine showed no evidence of discitis with yanira ateral multilevel neural foraminal narrowing due to disc space narrowing and facet arthropathy. He continued to struggle with positive blood cultures. On the morning of 01/14 his blood cultures were again positive, D/W ID and will proceed with CT Chest, abd, and pelvis. Head CT checked due to menatl status changes and without acute process. Patient seen and examined at bedside. He is lethargic but arouses and states that he remember me. He denies pain at this time, he denies nausea, vomiting or diarrhea. General: ill appearing, mild distress, appears at stated age Derm: warm, dry, multiple areas of ecchymosis Head: atraumatic, normocephalic, symmetric Eyes: EOMI, no lid lag, anicteric sclera Mouth: no lip lesion, mucus membranes dry Cardiovascular: S1S2 irreg with grade 3 ejection murmur, positive posterior tibial pulse bilateral, Lungs: + Decreased breath sounds bilateral bases, no accessory muscle use, no conversational dyspnea Abdominal: soft, bowel sounds present, nontender to palpation, no guarding, no appreciable organomegaly Ext: no gross muscle atrophy, 1+ LE edema, no contractures Neuro: CN II-XI grossly intact, no focal neuro deficits Psych: Awake alert and oriented 3 with appropriate affect Persistent MRSA bacteremia, suspect endocarditis - continue Dapto dose increased on 01/12. - ID recs: Plan to treat as presumed endocarditis - repeat blood culture 01/13 remain positive - TTE without valvular disease - D/W ID and will proceed with CT chest/abd/pelvis, ID will speak to cardio, ? stop amio to use rifampin if needed. Altered mentation likely due to hypoglycemia - stop levemir - follow BS 1 amp D50 - treatment of infection Acute exacerbation of systolic congestive heart failure with ejection fraction 20-25% -Cardiology recommendations appreciated -Strict I's and O's, daily weights -Lopressor, losartan on hold due to LULÚ -Off dobutamine, okay to restart per cardiology if needed -Lasix IVP LULÚ on CKD IIIa, metabolic acidosis - nephrology recs: Lasix, Metalozone - hold losartan - Off fluids - On oral bicarb Acute hypoxic respiratory failure secondary to CHF and recent COVID pneumonitis (12/30) - Wean O2 as able. - Elevated pro calcitonin likely secondary to bacteremia and not reflective of pneumonia New-onset Paroxysmal A. fib -Started on IV amiodarone and then transitioned to oral amiodarone -Eliquis. Non-STEMI with history of coronary artery disease and CABG -Cath with patent GAYLE to LAD and prior stents, no intervention needed -Continue with Plavix, Lipitor, Imdur, Lopressor Iron deficiency anemia -Follow CBC -No indication for transfusion at this point in time. - colonoscopy completed this admission no signs of polyps Diabetes mellitus type 2 with hyperglycemia - off metformin - SSI, levemir - follow BS - A1C 6 Hypertension - controlled - Continue with metoprolol - follow BP Dyslipidemia - Statin Chronic back pain - norco, lidodrem patch Stage II pressure ucler - frequent turn - barrier cream and dressing Covid-19 pneumonitis, completed therapy large bowel ileus, improved Hypomagnesemia, resolved Thrombocytopenia, resolved Cardiac event possible syncope vs cardiac arrest Hypokalemia, resolved Called [facility] and they have no bed availability to accept the patient at this time, I have asked Dr. Kramer to speak with cardiology about need for echo he ordered a CT chest ABD and pelvis. DVT prophylaxis: Cara Discussed with: patient, nursing, Dr Kramer Anticipated discharge:undetermined Anticipated discharge place: undetermined A total of 35 minutes was spent on the care of this complex patient more than 50% of the time was spent in counseling and care coordination. Objective - Vital Signs Vital signs: Vital Signs Temp 97.5 F L 01/14/21 05:05 Pulse 113 H 01/14/21 05:05 Resp 25 H 01/14/21 05:05 BP 152/92 01/14/21 05:05 Pulse Ox 93 L 01/14/21 05:05 Intake & Output 01/13/21 01/14/21 01/14/21 18:59 06:59 18:59 Intake Total 1171 20 0 Output Total 1802 602 Balance -631 -582 0 Weight 95 kg Intake: IV 20 20 Invasive Line 8 20 20 Oral 1151 0 Output: Urine 1800 600 Stool 2 2 Other: Voiding Method Indwelling Catheter Indwelling Catheter # Bowel Movements 1 - Labs CBC & Chem 7: 01/14/21 07:54 01/14/21 07:47 Labs: Abnormal Lab Results - Last 24 Hours (Table) 01/13/21 01/13/21 01/13/21 Range/Units 12:08 17:43 19:59 WBC (3.8-10.6) k/uL RBC (4.30-5.90) m/uL Hgb (13.0-17.5) gm/dL Hct (39.0-53.0) % RDW (11.5-15.5) % PT (9.0-12.0) sec INR (<1.2) Sodium (137-145) mmol/L Potassium (3.5-5.1) mmol/L Chloride (98-107) mmol/L Carbon Dioxide (22-30) mmol/L BUN (9-20) mg/dL Creatinine (0.66-1.25) mg/dL Glucose (74-99) mg/dL POC Glucose (mg/dL) 102 H 182 H 273 H (75-99) mg/dL Calcium (8.4-10.2) mg/dL ALT (4-49) U/L Total Protein (6.3-8.2) g/dL Albumin (3.5-5.0) g/dL 01/14/21 01/14/21 01/14/21 Range/Units 07:44 07:47 07:54 WBC 13.2 H (3.8-10.6) k/uL RBC 3.03 L (4.30-5.90) m/uL Hgb 8.5 L (13.0-17.5) gm/dL Hct 25.3 L (39.0-53.0) % RDW 17.4 H (11.5-15.5) % PT (9.0-12.0) sec INR (<1.2) Sodium 130 L (137-145) mmol/L Potassium 3.2 L (3.5-5.1) mmol/L Chloride 91 L (98-107) mmol/L Carbon Dioxide 34 H (22-30) mmol/L BUN 91 H (9-20) mg/dL Creatinine 1.69 H (0.66-1.25) mg/dL Glucose 47 L* (74-99) mg/dL POC Glucose (mg/dL) 73 L (75-99) mg/dL Calcium 7.9 L (8.4-10.2) mg/dL ALT 57 H (4-49) U/L Total Protein 5.1 L (6.3-8.2) g/dL Albumin 2.3 L (3.5-5.0) g/dL 01/14/21 Range/Units 07:54 WBC (3.8-10.6) k/uL RBC (4.30-5.90) m/uL Hgb (13.0-17.5) gm/dL Hct (39.0-53.0) % RDW (11.5-15.5) % PT 12.3 H (9.0-12.0) sec INR 1.2 H (<1.2) Sodium (137-145) mmol/L Potassium (3.5-5.1) mmol/L Chloride (98-107) mmol/L Carbon Dioxide (22-30) mmol/L BUN (9-20) mg/dL Creatinine (0.66-1.25) mg/dL Glucose (74-99) mg/dL POC Glucose (mg/dL) (75-99) mg/dL Calcium (8.4-10.2) mg/dL ALT (4-49) U/L Total Protein (6.3-8.2) g/dL Albumin (3.5-5.0) g/dL Microbiology - Last 24 Hours (Table) 01/13/21 07:00 Blood Culture Gram Stain - Preliminary Blood 01/13/21 07:00 Blood Culture - Final Blood 01/12/21 07:49 Blood Culture Gram Stain - Preliminary Blood Blood Culture - Preliminary Presumptive MRSA 01/11/21 08:12 Blood Culture Gram Stain - Final Blood Blood Culture - Final Methicillin resist S. aureus
--- NOTE | 2021-01-14 13:53 | CT ---
EXAMINATION TYPE: CT ChestAbdPelvis wo con DATE OF EXAM: 01/14/2021 COMPARISON: 12/25/2020 HISTORY: Bacteremia CT DLP: 1284.8mGycm Unenhanced CT of the Chest, Abdomen and Pelvis Unenhanced CT of the chest ,abdomen and pelvis is performed. The lack of intravenous contrast limits evaluation of the solid and hollow viscera. Patient motion limits portions of the study. Oral contrast: Yes CT Chest: LUNGS: Diffuse airspace infiltrates are seen throughout both lung gonzalez compatible with pneumonia. S mall left pleural effusions are noted bilaterally. No pulmonary nodule or mass is detected. No pleur al effusion or CT evidence of interstitial lung disease. MEDIASTINUM: Thoracic aorta is of normal caliber. The heart is enlarged. No evidence for mediastin al mass or adenopathy. HILAR STRUCTURES: No evidence for mass. No hilar adenopathy is appreciated. OTHER: No significant abnormality. CONTRAST CT ABDOMEN AND PELVIS: LIVER/GB: Tiny layering gallstones suggested. No space occupying hepatic lesion. Biliary tree is of n ormal caliber. PANCREAS: No inflammation. No distinct mass. SPLEEN: No splenic enlargement. No lesion seen. ADRENALS: No nodule. No thickening. KIDNEYS/BLADDER: No hydronephrosis. No nephrolithiasis. No distinct renal mass. BOWEL: Normal appendix. Normal bowel caliber. No inflammation. GENITAL ORGANS: No gross abnormality. LYMPH NODES: No greater than 1cm abdominal or pelvic lymph nodes are appreciated. AORTA: No significant abnormality. OSSEOUS STRUCTURES: Bilateral hip prosthesis with streak artifact limiting evaluation of the pelvic s tructures. Degenerative changes lumbar spine. OTHER: Small amount of ascites noted. IMPRESSION: 1. Diffuse airspace infiltrates are seen throughout both lung gonzalez compatible with pneumonia. Small left pleural effusions are noted bilaterally. 2.
[2021-01-14 14:32] VITALS: BMI 32.8
[2021-01-14] MEDS: HYDROcodone/APAP 7.5-325MG 1 EACH TAB PO PRN (14:45)
--- NOTE | 2021-01-14 14:59 | PN ---
PROGRESS NOTE The patient is seen for followup for acute kidney injury, volume overload. He has underlying COVID-19 pneumonia. Currently he is being diuresed. There are plans to transfer the patient to tertiary care center secondary to persistent bacteremia. PHYSICAL EXAMINATION: On examination today, patient is very lethargic, awake. He does open his eyes, does not communicate much. Blood pressure was 126/80, heart rate of 113 per minute. Patient is afebrile. EXAMINATION OF THE HEART: S1, S2. EXAMINATION OF THE LUNGS: Decreased breath sounds at bases. Abdomen is soft, nontender. Examination of lower extremities shows edema 2+ bilaterally. LABS: Labs show sodium 130, potassium 3.2, chloride 91, BUN 91, creatinine 1.69. ASSESSMENT: 1. Acute kidney injury, acute tubular necrosis. 2. Chronic kidney disease stage 3 secondary to recurrent acute kidney injury cardiorenal syndrome. 3. Congestive heart failure, systolic acute on top of chronic. 4. Persistent MRSA bacteremia source not identified, possibly endocarditis. 5. COVID-19 pneumonia. PLAN: Continue with IV Lasix. Agree with transfer to tertiary care facility. MMODL / IJN: [id number] /
[2021-01-14] MEDS ORDERED: FUROSEMIDE 10 MG/ML 10 ML VIAL IV STA (15:11)
[2021-01-14] MEDS: LINEZOLID 600 MG in DEXTROSE/WATER 1 300ML.BAG IVPB SCH ×2 (15:52→20:29)
--- NOTE | 2021-01-14 16:45 | P.DS ---
Providers Date of admission: 12/19/20 07:22 Expected date of discharge: 01/14/21 Attending physician: Cary Dale Consults: 12/19/20 07:23 Consult Physician Routine Consulting Provider: Amado Hicks Consult Reason/Comments: CHF; elevated trop Do you want consulting provider notified?: Yes 12/23/20 11:26 Consult Physician Routine Consulting Provider: Lizbeth Rondon Consult Reason/Comments: LULÚ Do you want consulting provider notified?: Yes 12/23/20 22:41 Consult Physician Stat Consulting Provider: Halie Azar Consult Reason/Comments: ICU management Do you want consulting provider notified?: Yes 12/27/20 13:07 Consult Physician Routine Consulting Provider: Thuy Alvarado Consult Reason/Comments: large bowel ileus Do you want consulting provider notified?: Already Contacted 01/01/21 07:26 Consult Physician Routine Consulting Provider: Fredo Kramer Consult Reason/Comments: MRSA bacteremia Do you want consulting provider notified?: Yes 01/09/21 14:48 Consult Physician Routine Consulting Provider: Lluvia Aquino Consult Reason/Comments: CHF worsening again, possible need for dobutamine Do you want consulting provider notified?: Yes Primary care physician: Kyle Saez Hospital Course: Discharge Diagnosis: Persistent MRSA bacteremia- suspect infectious endocarditis Acute metabolic encephalopathy- related to hypoglycemia, improved Acute exacerbation of systolic CHF with EF 20-25% LULÚ on CKD IIIa due to cardiorenal syndrome (max Cr this hospital stay 2.52 baseline Cr 1.22), Metabolic acidosis Covid-19 Pneumonitis Acute hypoxic respiratory failure Iron deficiency anemia- colonoscopy with descending hyperplastic colonpolyp (not removed), repeat colonoscopy in 5 years HLD HTN DM 2 well controlled at baseline with A1C 6 Chronic back pain Stage II Pressure ulcer on buttock large bowel ileus, improved Hypomagnesemia, resolved Thrombocytopenia, resolved Cardiac event possible syncope vs cardiac arrest Hypokalemia Hospital Course: Patient is a 70-year-old male with a past medical history of coronary artery disease with history of CABG in 1999, diabetes mellitus type 2, hypertension, and dyslipidemia who presented to the emergency room with shortness of breath. He was subsequently found to have an acute exacerbation of systolic congestive heart failure. He was tachypneic and hypoxic on presentation. He was started on IV heparin due to an elevated troponin and Lasix. Cardiology was consulted who agreed with continuing Lasix and IV heparin. He had suboptimal diuresis and therefore his Lasix was increased to 80 mg every 8 hours. Due to his low ejection fraction of 20-25% which was newly discovered he underwent cardiac cath on 12/23 his stent were found to be patent LAD was widely open, with no additional intervention required. He was noted to have worsening renal function and his lisinopril was discontinued. He was transitioned off of heparin drip and onto Eliquis. He was also started on dobutamine. He did go into A. fib and was started on IV amiodarone and then transitioned to oral amiodarone. He was noted to have worsening renal function was seen by nephrology on 12/23. They agreed with continuing dobutamine drip and maintaining a systolic blood pressure greater than 110. On the evening of 12/23 patient seen in follow going to the bathroom and was found to be unresponsive with possible loss of pulses. CPR was initiated and after 1 round of CPR ROSC was noted, concern for possible vasovagal episode. He was awake and alert and did not require intubation. He was transferred to the ICU in critical care was consulted. There was some concern of possible seizure activity versus true cardiac arrest. Head CT was completed which showed no acute process, EEG was normal. His transitioned off of dobutamine on 12/24. He developed abdominal distension, nausea, and abdominal pain on 12/[address] demonstrated large bowel ileus. He did have an enema which resulted in liquid bowel movement and he had one large formed BM the morning of 12/26, the rest were liquid. His renal function was slowly improving and he was kept on lasix. He started having multiple liquid bowel movements. He continued to have some liquid bowel movements but was tolerating a diet. Overnight on 12/29 the patient started spiking fevers at approximately 8 PM. He experienced respiratory distress and was noted to be hypoxemic. CXR demonstrated patchy perihilar infiltrates and COVID testing came back positive. He required BiPap for O2 support he was transferred to the ICU. Pulmonary was reconsulted. He was noted to have high procalcitonin and was started on Zosyn. He then became nauseated and surgery made him NPO and ordered dulcolax. Colonoscopy completed 01/04 with hyperplaastic polyp X 1 and focal segmental edema. Nephrology restarted her Lasix drips on 01/07 and added Zaroxolyn on 01/08 due to worsening fluid overload. Bactermia course: + blood culture and possible MRSA on 12/30 started on vanco. Source of infection was unknown, but possibly pneumonia. Patient had prolonged positive blood cultures with MRSA and infectous disese has been following. Patient was transitioned to daptomycin on 01/04, dose increased on 01/12/21, chenged to zyvox on 01/14/21. There was consideration for possible JOHN, however due to patient's Covid positive status cardiology recommended avoiding a JOHN at this time and repeating a transthoracic echocardiogram, after 10 days post COVID cardio still did not feel comfortable completing JOHN due to overall clinical status. This was completed and again showed an ejection fraction of 20-25%, severe global hypokinesis of the left ventricle, moderate aortic sclerosis with moderate aortic stenosis, severe pulmonary hypertension, and no vegetation on valves. Tagged WBC scan without pyogenic area. MRI lumbar spine showed no evidence of discitis with bilateral multilevel neural foraminal narrowing due to disc space narrowing and facet arthropathy. He continued to struggle with positive blood cultures. On the morning of 01/14 his blood cultures were again positive, D/W ID and will proceed with CT Chest, abd, and pelvis which demonstrated infiltrates of pneumonia vs edema. Head CT checked due to mental status changes and without acute process, suspected due to glucose of 46 and resolved with dextrose. D/W ID and cardio multiple times. On 01/14 it was decided that patient would be better served at a tertiary care center. He was graciously accepted by Dr. Halima Wesley at [facility]. Family and patient in agreement with transfer to higher level of care. If there are any questions regarding this patient once he arrives at the [facility] our hospitalist direct line is [phone] please do not hesitate to contact us if we can be of help. Follow-up: Transferred to [facility] for Further care. See progress note same date for physical exam A total of 47 minutes of time were spent preparing this complex discharge summar y . Patient Condition at Discharge: Serious Plan - Discharge Summary Discharge Rx Participant: No New Discharge Prescriptions: No Action lisinopriL 40 mg PO DAILY allopurinoL [Zyloprim] 100 mg PO DAILY amLODIPine [Norvasc] 10 mg PO DAILY Pantoprazole Sodium [Protonix] 40 mg PO DAILY Potassium Chloride ER [K-Dur 20] 20 meq PO BID Tamsulosin HCl [Flomax] 0.4 mg PO BID Metoprolol Tartrate [Lopressor] 75 mg PO BID Aspirin 81 mg PO DAILY #90 chew Atorvastatin [Lipitor] 80 mg PO DAILY #90 tab Nitroglycerin Sl Tabs [Nitrostat] 0.4 mg SUBLINGUAL Q5M PRN #25 tab PRN Reason: Chest Pain Clopidogrel [Plavix] 75 mg PO DAILY #90 tab metFORMIN HCL [Glucophage] 500 mg PO BID #0 Torsemide [Demadex] 20 mg PO DAILY #30 tablet Isosorbide Mononitrate ER [Imdur] 30 mg PO DAILY Cholecalciferol [Vitamin D3 (25 Mcg = 1000 Iu)] 25 mcg PO DAILY Discharge Medication List Pantoprazole Sodium [Protonix] 40 mg PO DAILY 01/20/18 [History] allopurinoL [Zyloprim] 100 mg PO DAILY 01/20/18 [History] amLODIPine [Norvasc] 10 mg PO DAILY 01/20/18 [History] lisinopriL 40 mg PO DAILY 01/20/18 [History] Potassium Chloride ER [K-Dur 20] 20 meq PO BID 02/08/19 [History] Tamsulosin HCl [Flomax] 0.4 mg PO BID 02/08/19 [History] Metoprolol Tartrate [Lopressor] 75 mg PO BID 02/17/19 [History] Aspirin 81 mg PO DAILY #90 chew 05/27/19 [Rx] Atorvastatin [Lipitor] 80 mg PO DAILY #90 tab 05/27/19 [Rx] Clopidogrel [Plavix] 75 mg PO DAILY #90 tab 05/27/19 [Rx] Nitroglycerin Sl Tabs [Nitrostat] 0.4 mg SUBLINGUAL Q5M PRN #25 tab 05/27/19 [Rx] Torsemide [Demadex] 20 mg PO DAILY #30 tablet 05/27/19 [Rx] metFORMIN HCL [Glucophage] 500 mg PO BID #0 05/27/19 [Rx] Isosorbide Mononitrate ER [Imdur] 30 mg PO DAILY 08/24/19 [History] Cholecalciferol [Vitamin D3 (25 Mcg = 1000 Iu)] 25 mcg PO DAILY 12/19/20 [History] Follow up Appointment(s)/Referral(s): [facility] [NON-STAFF] - As Needed Thuy Alvarado MD [STAFF PHYSICIAN] - 02/05/21 [facility], [NON-STAFF] - 1-2 Days Alvaro Arias DO [REFERRING] - 1-2 days Patient Instructions/Handouts: Colorectal Polyps (DC), Colonoscopy (DC) Activity/Diet/Wound Care/Special Instructions: Activity: [] Diet: [] Wound Care: [] Special Instructions: Will need to have a colonoscopy in the future due to low iron levels and ileus
[2021-01-14 17:19] LABS: Glucose,Whole Blood 219 mg/dL (75-99)
[2021-01-14] MEDS: SODIUM CHLORIDE 0.9% IVPB SCH (18:48)
[2021-01-14] MEDS: CEFTAROLINE FOSAMIL IVPB SCH (18:48)
[2021-01-14 20:28] LABS: Glucose,Whole Blood 289 mg/dL (75-99)
[2021-01-14] MEDS ORDERED: INSULIN DETEMIR (LEVEMIR) 100 UNIT/ML SYR SQ SCH (21:00)
[2021-01-14] MEDS ORDERED: LINEZOLID 600 MG in DEXTROSE/WATER 1 300ML.BAG IVPB SCH (21:00)
--- NOTE | 2021-01-14 23:33 | PN ---
PROGRESS NOTE DATE OF SERVICE: 01/14/2021 REASON FOR FOLLOW UP: Persistent MRSA bacteremia. INTERVAL HISTORY: Patient is currently afebrile, complaining of shortness of breath. No chest pain though. No nausea, no vomiting. No abdominal pain. No diarrhea and no new symptoms. PHYSICAL EXAMINATION: Blood pressure 129/81, pulse of 90, temperature of 98.2. He is 94% on 2 L nasal cannula. GENERAL description is an elderly male lying in bed in no distress. RESPIRATORY system: Unlabored breathing, coarse breath sounds in the bases bilaterally. No wheeze. HEART S1, S2. Regular rate and rhythm. ABDOMEN is soft, no tenderness. EXTREMITIES: 2+ edema of feet. LABS: Hemoglobin 8.5, white count 13.2, BUN of 91, creatinine 1.69. Richter PCR is positive. DIAGNOSTIC IMPRESSION AND PLAN: Patient with persistent MRSA bacteremia concern for endovascular source in this patient who did have extensive workup including CT of chest, abdomen and pelvis. MRI of the lumbar spine and WBC scan. 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 The patient is currently being transferred to [facility] to be evaluated by at that facility in view of the patient's failure with vancomycin followed by daptomycin 110 mg, antibiotic switched over to Teflaro with daily monitoring the blood cultures and close outpatient followup. MMODL / IJN: [id number] /
[2021-01-15] MEDS: CEFTAROLINE FOSAMIL IVPB SCH ×2 (03:47→17:00)
[2021-01-15] MEDS: HYDROcodone/APAP 7.5-325MG 1 EACH TAB PO PRN ×3 (03:47→17:00)
[2021-01-15] MEDS: SODIUM CHLORIDE 0.9% IVPB SCH ×2 (03:47→17:00)
[2021-01-15 06:24] LABS: Glucose,Whole Blood 246 mg/dL (75-99)
[2021-01-15] MEDS: PANTOPRAZOLE 40 MG TABLET PO SCH (06:42)
[2021-01-15 09:32] LABS: Anisocytosis Slight; HCT 25.4 % (39.0-53.0); HGB 8.5 gm/dL (13.0-17.5); MCHC 33.4 g/dL (31.0-37.0); MCV 83.7 fL (80.0-100.0); Mean Platelet Volume 8.4; Platelet Count 179 k/uL (150-450); RBC 3.03 m/uL (4.30-5.90); RDW 17.4 % (11.5-15.5); WBC 12.5 k/uL (3.8-10.6)
[2021-01-15 09:48] LABS: Calcium 7.8 mg/dL (8.4-10.2); Magnesium 1.9 mg/dL (1.6-2.3); Phosphorus 5.9 mg/dL (2.5-4.5); Potassium 4.5 mmol/L (3.5-5.1)
[2021-01-15 10:12] LABS: C Reactive Protein 229.5 mg/L (<10.0)
[2021-01-15] MEDS: INSULIN ASPART (NovoLOG) 100 UNIT/ML VIAL SQ SCH ×3 (10:41→17:49)
[2021-01-15] MEDS: FUROSEMIDE 10 MG/ML 10 ML VIAL IV SCH ×2 (10:54→16:56)
[2021-01-15] MEDS: CHOLECALCIFEROL 25 MCG (1000 IU) TABLET PO SCH (11:04)
[2021-01-15] MEDS: ZINC SULFATE 220 MG CAP PO SCH (11:05)
[2021-01-15] MEDS: metOLazone 5 MG TAB PO SCH (11:05)
[2021-01-15] MEDS: CLOPIDOGREL 75 MG TAB PO SCH (11:05)
[2021-01-15] MEDS: AMIODARONE 200 MG TAB PO SCH (11:05)
[2021-01-15] MEDS: ISOSORBIDE MONONITRATE ER 30 MG TAB.ER.24H PO SCH (11:05)
[2021-01-15] MEDS: APIXABAN 5 MG TAB PO SCH (11:05)
[2021-01-15] MEDS: allopurinoL 100 MG TAB PO SCH (11:05)
[2021-01-15] MEDS: METOPROLOL TARTRATE 25 MG TAB PO SCH (11:05)
[2021-01-15] MEDS: LIDOCAINE 5% PATCH TOPICAL SCH (11:06)
[2021-01-15] MEDS: ASCORBIC ACID 500 MG TAB PO SCH (11:06)
[2021-01-15] MEDS: bisacodyL 10 MG SUPP RECTAL SCH ×2 (11:06→11:10)
[2021-01-15] MEDS: TAMSULOSIN 0.4 MG CAP.ER.24H PO SCH (11:06)
[2021-01-15] MEDS: FERROUS SULFATE 325 MG TAB PO SCH (11:06)
[2021-01-15] MEDS: SIMETHICONE 40 MG/0.6 ML DROPS 2,000 MG/30 ML BOTTLE PO SCH ×3 (11:07→17:11)
[2021-01-15] MEDS ORDERED: TOLVAPTAN 15 MG 1/2 TABLET PO ONE (11:30)
[2021-01-15 11:54] LABS: Glucose,Whole Blood 222 mg/dL (75-99)
[2021-01-15 12:22] LABS: Erythrocyte Sedimentation Rate 90 mm/hr (0-15)
[2021-01-15 13:00] LABS: Glucose,Whole Blood 192 mg/dL (75-99)
--- NOTE | 2021-01-15 13:58 | P.PN ---
Subjective Progress Note Date: 01/15/21 CHIEF COMPLAINT: Colonic distention HISTORY OF PRESENT ILLNESS: The patient is a 70 year old male with acute on chronic congestive heart failure, chronic anticoagulation, multiple cardiopulmonary arrest, recent diagnosis coronavirus and focal segmental edema causing functional intermittent bowel obstruction. Patient being treated for MRSA bacteremia. Blood cultures remain positive. Infectious disease concern for endovascular source causing patient's bacteremia. Patient is awaiting transfer to a tertiary care center. He still has bacteremia despite being on antibiotics. Patient denies any abdominal pain. He did report a bowel movement yesterday. Afebrile. He is on 5 L satting at 95%. WBC 12.5 HGB 8.5 platelets 179 sodium 123 creatinine 2.15 Computed tomography scan of the chest abdomen and pelvis done yesterday shows diffuse airspace infiltrates are seen throughout both lung gonzalez compatible with pneumonia. Small left pleural effusions are noted bilaterally. Normal appendix. Normal bowel caliber. No inflammation. PHYSICAL EXAM: VITAL SIGNS: Reviewed GENERAL: Well-developed in no acute distress. HEENT: No sclera icterus. Extraocular movements grossly intact. Moist buccal mucosa. Head is atraumatic, normocephalic. Hears conversational speech. No nasal drainage. NECK: Supple without lymphadenopathy. CHEST: Non-labored respirations and equal bilateral excursions. CARDIOVASCULAR: Palpable 2+ radial pulses. ABDOMEN: Soft. Nondistended. Nontender. MUSCULOSKELETAL: No clubbing or cyanosis. NEUROLOGIC: No focal or lateralizing signs. Cranial nerves II through XII grossly intact. PSYCH: Appropriate affect. Alert and oriented to person, place and time. SKIN: Well perfused. Good skin turgor. ASSESSMENT: 1. Abdominal distention with large bowel dilation, improved 2. Coronary artery disease with history of stent 3. Acute on chronic congestive heart failure 4. History of recent cardiac event requiring cardiopulmonary resuscitation 5. Diabetes type 2, [id number] 6. Hypokalemia 7. Acute on chronic renal injury 8. Anemia 9. Leukopenia, improved. 10. Coronavirus positive serology 11. Functional obstruction due to colonic edema 12. MRSA bacteremia 13. Hypoglycemia improved PLAN: -Continue supportive care -Continue heart healthy, carb consistent diet -No surgical intervention planned -Patient is awaiting transfer to tertiary care center at the [facility] [place] Physician Superintendent Transportation note has been reviewed by physician. Signing provider agrees with the documented findings, assessment, and plan of care. Objective - Vital Signs Vital signs: Vital Signs Temp 98.3 F 01/15/21 02:55 Pulse 93 01/15/21 02:55 Resp 21 01/15/21 02:55 BP 141/73 01/15/21 02:55 Pulse Ox 95 01/15/21 07:30 Intake & Output 01/14/21 01/15/21 01/15/21 18:59 06:59 18:59 Intake Total 1297 520 960 Output Total 2404 323 Balance -1107 197 960 Weight 95 kg 93.5 kg Intake: IV 460 40 Ceftaroline Fosamil 400 30 mg In Sodium Chloride 0.9 % 30 ml @ 50 mls/hr IVPB Q12H [facility] Rx#:[id number] DAPTOmycin 1,000 mg In 100 Sodium Chloride 0.9% 50 ml @ 100 mls/hr IVPB Q24H [facility] Rx#:[id number] Invasive Line 8 20 20 Invasive Line 9 10 20 Linezolid 600 mg In 300 Dextrose/Water 1 300ml. bag @ 150 mls/hr IVPB Q12HR [facility] Rx#:[id number] Oral 837 480 960 Output: Urine 2400 320 Uretheral (Duckworth) 1600 Stool 4 3 Other: Voiding Method Indwelling Catheter Indwelling Catheter # Bowel Movements 3 1 - Labs CBC & Chem 7: 01/15/21 08:37 01/15/21 12:37 Labs: Abnormal Lab Results - Last 24 Hours (Table) 01/14/21 01/14/21 01/14/21 Range/Units 15:45 17:18 20:27 WBC (3.8-10.6) k/uL RBC (4.30-5.90) m/uL Hgb (13.0-17.5) gm/dL Hct (39.0-53.0) % RDW (11.5-15.5) % ESR (0-15) mm/hr Sodium (137-145) mmol/L Chloride (98-107) mmol/L BUN (9-20) mg/dL Creatinine (0.66-1.25) mg/dL Glucose (74-99) mg/dL POC Glucose (mg/dL) 219 H 289 H (75-99) mg/dL Calcium (8.4-10.2) mg/dL Phosphorus (2.5-4.5) mg/dL C-Reactive Protein (<10.0) mg/L Coronavirus (PCR) Detected A (Not Detectd) 01/15/21 01/15/21 01/15/21 Range/Units 06:23 08:37 08:37 WBC 12.5 H (3.8-10.6) k/uL RBC 3.03 L (4.30-5.90) m/uL Hgb 8.5 L (13.0-17.5) gm/dL Hct 25.4 L (39.0-53.0) % RDW 17.4 H (11.5-15.5) % ESR 90 H (0-15) mm/hr Sodium 122 L (137-145) mmol/L Chloride 83 L (98-107) mmol/L BUN 100 H (9-20) mg/dL Creatinine 2.15 H (0.66-1.25) mg/dL Glucose 250 H (74-99) mg/dL POC Glucose (mg/dL) 246 H (75-99) mg/dL Calcium 7.8 L (8.4-10.2) mg/dL Phosphorus 5.9 H (2.5-4.5) mg/dL C-Reactive Protein 229.5 H (<10.0) mg/L Coronavirus (PCR) (Not Detectd) 01/15/21 01/15/21 01/15/21 Range/Units 11:52 12:37 12:59 WBC (3.8-10.6) k/uL RBC (4.30-5.90) m/uL Hgb (13.0-17.5) gm/dL Hct (39.0-53.0) % RDW (11.5-15.5) % ESR (0-15) mm/hr Sodium 123 L (137-145) mmol/L Chloride (98-107) mmol/L BUN (9-20) mg/dL Creatinine (0.66-1.25) mg/dL Glucose (74-99) mg/dL POC Glucose (mg/dL) 222 H 192 H (75-99) mg/dL Calcium (8.4-10.2) mg/dL Phosphorus (2.5-4.5) mg/dL C-Reactive Protein (<10.0) mg/L Coronavirus (PCR) (Not Detectd) Microbiology - Last 24 Hours (Table) 01/14/21 07:28 Blood Culture Gram Stain - Preliminary Blood 01/14/21 07:28 Blood Culture - Final Blood 01/12/21 07:49 Blood Culture Gram Stain - Final Blood Blood Culture - Final Methicillin resist S. aureus 01/13/21 07:00 Blood Culture Gram Stain - Preliminary Blood Blood Culture - Preliminary Presumptive MRSA 01/10/21 09:31 Blood Culture Gram Stain - Final Blood Blood Culture - Final Methicillin resist S. aureus
--- NOTE | 2021-01-15 14:24 | PN ---
PROGRESS NOTE DATE OF SERVICE: 01/15/2021 REASON FOR FOLLOWUP: MRSA bacteremia endovascular source. INTERVAL HISTORY: The patient is currently afebrile. He is breathing slightly comfortably. Patient denies having any chest pain. He did have some cough, not bringing any sputum. No abdominal pain or diarrhea. PHYSICAL EXAMINATION: Blood pressure 141/73 with pulse of 93, temperature 98.3. He is 98% on 2 L nasal cannula. General description is an elderly male lying in bed in no distress. RESPIRATORY SYSTEM: Unlabored breathing, coarse breath sounds at the bases. No wheeze. HEART: S1, S2. Regular rate and rhythm. ABDOMEN: Soft, no tenderness. LABS: Hemoglobin 8.5, white count 12.5, creatinine is 2.15. DIAGNOSTIC IMPRESSION AND PLAN: Patient with persistent MRSA bacteremia in this patient who did have extensive workup including CT abdomen, pelvis, chest, MRI of the lumbar spine, and WBC scans. JOHN with concern being transferred to [facility] to be evaluated by cardiology services. Patient initially treated with vancomycin followed by daptomycin and hence currently on Teflaro. the patient is on amiodarone. Overall prognosis remains to be guarded. Care was discussed with admitting hospitalist. MMODL / IJN: [id number] /
[2021-01-15 15:58] VITALS: TEMP 96.1
--- NOTE | 2021-01-15 16:19 | PN ---
PROGRESS NOTE The patient is a 70-year-old male who is seen for followup for acute kidney injury, volume overload. He also has underlying persistent MRSA bacteremia. There are plans to transfer to tertiary care center as JOHN could not be performed due to patient's critical condition. The patient is maintained on Lasix 60 mg q.8 hours. This morning he is noted to have a sodium of 122, which has dropped significantly from 1:30 yesterday. The patient remains lethargic. He does, however, open his eyes and answer the simple questions. He is complaining of some shortness of breath as well. Oxygen requirements are about the same as yesterday. The patient has an indwelling Duckworth catheter with 24-hour urine output at about 2.4 L and he was -900 mL over 24 hours. PHYSICAL EXAMINATION: On examination today, blood pressure was 125/72, heart rate of 94 per minute. Patient is afebrile. EXAMINATION OF THE HEART: S1, S2. EXAMINATION OF THE LUNGS: Bilateral breath sounds are heard. Decreased breath sounds at bases. Abdomen is soft, distended. Abdominal wall edema noted. Examination of lower extremities shows 3+ edema bilaterally. 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 He is, however, lethargic. LABS: Labs show sodium 122 this morning, potassium 4.5, BUN 100, serum creatinine 2.15, hemoglobin 8.5 g/dL. ASSESSMENT: 1. Acute kidney injury, cardiorenal. Serum creatinine is slightly higher from yesterday. Patient is currently being diuresed. I will hold off on the Lasix this morning secondary to the significant hyponatremia noted today. The patient has a Duckworth catheter. He has good urine output. Blood pressure is staying on the lower side. If his renal function continues to deteriorate, we may need to add dobutamine as his ejection fraction is about 20% to 25%. Avoid hypotension. 2. Hyponatremia, hypervolemic. Continue with Lasix. Hold today's dose give one dose of Samsca and repeat sodium this evening. 3. Persistent MRSA bacteremia source not clear, being followed by ID. Currently maintained on ceftaroline. Patient was also on Zyvox. PLAN: Samsca 15 mg x1, repeat sodium this evening. Hold this morning dose of Lasix and continue with the remainder doses. May need 3% saline if the serum sodium does not improve since it is quite an acute drop. Overall prognosis is guarded. MMODL / IJN: [id number] /
[2021-01-15 16:44] VITALS: BP 116/72; PULSE 80; RESP 26
[2021-01-15 16:48] LABS: Glucose,Whole Blood 254 mg/dL (75-99)
--- NOTE | 2021-01-15 20:19 | P.DS ---
Providers Date of admission: 12/19/20 07:22 Expected date of discharge: 01/15/21 Attending physician: Cary Dale Consults: 12/19/20 07:23 Consult Physician Routine Consulting Provider: Amado Hicks Consult Reason/Comments: CHF; elevated trop Do you want consulting provider notified?: Yes 12/23/20 11:26 Consult Physician Routine Consulting Provider: Lizbeth Rondon Consult Reason/Comments: LULÚ Do you want consulting provider notified?: Yes 12/23/20 22:41 Consult Physician Stat Consulting Provider: Halie Azar Consult Reason/Comments: ICU management Do you want consulting provider notified?: Yes 12/27/20 13:07 Consult Physician Routine Consulting Provider: Thuy Alvarado Consult Reason/Comments: large bowel ileus Do you want consulting provider notified?: Already Contacted 01/01/21 07:26 Consult Physician Routine Consulting Provider: Fredo Kramer Consult Reason/Comments: MRSA bacteremia Do you want consulting provider notified?: Yes 01/09/21 14:48 Consult Physician Routine Consulting Provider: Lluvia Aquino Consult Reason/Comments: CHF worsening again, possible need for dobutamine Do you want consulting provider notified?: Yes Primary care physician: Kyle Saez Hospital Course: Discharge Diagnosis: Persistent MRSA bacteremia- suspect infectious endocarditis Acute metabolic encephalopathy- related to hypoglycemia, improved Acute exacerbation of systolic CHF with EF 20-25% LULÚ on CKD IIIa due to cardiorenal syndrome (max Cr this hospital stay 2.52 baseline Cr 1.22), Metabolic acidosis Covid-19 Pneumonitis Acute hypoxic respiratory failure Iron deficiency anemia- colonoscopy with descending hyperplastic colonpolyp (not removed), repeat colonoscopy in 5 years HLD HTN DM 2 well controlled at baseline with A1C 6 Chronic back pain Stage II Pressure ulcer on buttock large bowel ileus, improved Hypomagnesemia, resolved Thrombocytopenia, resolved Cardiac event possible syncope vs cardiac arrest Hypokalemia Hospital Course: Patient is a 70-year-old male with a past medical history of coronary artery disease with history of CABG in 1999, diabetes mellitus type 2, hypertension, and dyslipidemia who presented to the emergency room with shortness of breath. He was subsequently found to have an acute exacerbation of systolic congestive heart failure. He was tachypneic and hypoxic on presentation. He was started on IV heparin due to an elevated troponin and Lasix. Cardiology was consulted who agreed with continuing Lasix and IV heparin. He had suboptimal diuresis and therefore his Lasix was increased to 80 mg every 8 hours. Due to his low ejection fraction of 20-25% which was newly discovered he underwent cardiac cath on 12/23 his stent were found to be patent LAD was widely open, with no additional intervention required. He was noted to have worsening renal function and his lisinopril was discontinued. He was transitioned off of heparin drip and onto Eliquis. He was also started on dobutamine. He did go into A. fib and was started on IV amiodarone and then transitioned to oral amiodarone. He was noted to have worsening renal function was seen by nephrology on 12/23. They agreed with continuing dobutamine drip and maintaining a systolic blood pressure greater than 110. On the evening of 12/23 patient seen in follow going to the bathroom and was found to be unresponsive with possible loss of pulses. CPR was initiated and after 1 round of CPR ROSC was noted, concern for possible vasovagal episode. He was awake and alert and did not require intubation. He was transferred to the ICU in critical care was consulted. There was some concern of possible seizure activity versus true cardiac arrest. Head CT was completed which showed no acute process, EEG was normal. His transitioned off of dobutamine on 12/24. He developed abdominal distension, nausea, and abdominal pain on 12/[address] demonstrated large bowel ileus. He did have an enema which resulted in liquid bowel movement and he had one large formed BM the morning of 12/26, the rest were liquid. His renal function was slowly improving and he was kept on lasix. He started having multiple liquid bowel movements. He continued to have some liquid bowel movements but was tolerating a diet. Overnight on 12/29 the patient started spiking fevers at approximately 8 PM. He experienced respiratory distress and was noted to be hypoxemic. CXR demonstrated patchy perihilar infiltrates and COVID testing came back positive. He required BiPap for O2 support he was transferred to the ICU. Pulmonary was reconsulted. He was noted to have high procalcitonin and was started on Zosyn. He then became nauseated and surgery made him NPO and ordered dulcolax. Colonoscopy completed 01/04 with hyperplaastic polyp X 1 and focal segmental edema. Nephrology restarted her Lasix drips on 01/07 and added Zaroxolyn on 01/08 due to worsening fluid overload. Bactermia course: + blood culture and possible MRSA on 12/30 started on vanco. Source of infection was unknown, but possibly pneumonia. Patient had prolonged positive blood cultures with MRSA and infectous disese has been following. Patient was transitioned to daptomycin on 01/04, dose increased on 01/12/21, chenged to zyvox on 01/14/21. There was consideration for possible JOHN, however due to patient's Covid positive status cardiology recommended avoiding a JOHN at this time and repeating a transthoracic echocardiogram, after 10 days post COVID cardio still did not feel comfortable completing JOHN due to overall clinical status. This was completed and again showed an ejection fraction of 20-25%, severe global hypokinesis of the left ventricle, moderate aortic sclerosis with moderate aortic stenosis, severe pulmonary hypertension, and no vegetation on valves. Tagged WBC scan without pyogenic area. MRI lumbar spine showed no evidence of discitis with bilateral multilevel neural foraminal narrowing due to disc space narrowing and facet arthropathy. He continued to struggle with positive blood cultures. On the morning of 01/14 his blood cultures were again positive, D/W ID and will proceed with CT Chest, abd, and pelvis which demonstrated infiltrates of pneumonia vs edema. Head CT checked due to mental status changes and without acute process, suspected due to glucose of 46 and resolved with dextrose. D/W ID and cardio multiple times. On 01/14 it was decided that patient would be better served at a tertiary care center. He was graciously accepted by Dr. Halima Wesley at [facility]. Family and patient in agreement with transfer to higher level of care.Patient was not initially discharged on 01/14 as there was no bed available. A bed was available on 01/15 and he was subsequently discharged to [facility]. Of note patient had been transitioned to ceftaroline on the day of discharge by infectious disease, he id dhave a slight increase in Cr due to forced diuresis and his lasix was held X 1 dose. Spoke with [id number] Latoya on the phone and updated on bed now available at [facility]. If there are any questions regarding this patient once he arrives at the [facility] our hospitalist direct line is [phone] please do not hesitate to contact us if we can be of help. Follow-up: Transferred to [facility] for Further care. Patient seen and examined at bedside. He is feeling good today, back pain tolerable, no chest pain, breathing is better today but still winded with small amounts of activity, General: ill appearing, no distress, appears at stated age Derm: warm, dry, multiple areas of ecchymosis Head: atraumatic, normocephalic, symmetric Eyes: EOMI, no lid lag, anicteric sclera Mouth: no lip lesion, mucus membranes dry Cardiovascular: S1S2 irreg with grade 3 ejection murmur, positive posterior tibial pulse bilateral, Lungs: + Decreased breath sounds bilateral bases, no accessory muscle use, no conversational dyspnea Abdominal: soft, bowel sounds present, nontender to palpation, no guarding, no appreciable organomegaly Ext: + gross muscle atrophy, 2+ LE edema, no contractures Neuro: CN II-XI grossly intact, no focal neuro deficits Psych: Awake alert and oriented 3 with appropriate affect A total of 35 minutes of time were spent preparing this complex discharge summary . Patient Condition at Discharge: Serious Plan - Discharge Summary Discharge Rx Participant: No New Discharge Prescriptions: No Action lisinopriL 40 mg PO DAILY allopurinoL [Zyloprim] 100 mg PO DAILY amLODIPine [Norvasc] 10 mg PO DAILY Pantoprazole Sodium [Protonix] 40 mg PO DAILY Potassium Chloride ER [K-Dur 20] 20 meq PO BID Tamsulosin HCl [Flomax] 0.4 mg PO BID Metoprolol Tartrate [Lopressor] 75 mg PO BID Aspirin 81 mg PO DAILY #90 chew Atorvastatin [Lipitor] 80 mg PO DAILY #90 tab Nitroglycerin Sl Tabs [Nitrostat] 0.4 mg SUBLINGUAL Q5M PRN #25 tab PRN Reason: Chest Pain Clopidogrel [Plavix] 75 mg PO DAILY #90 tab metFORMIN HCL [Glucophage] 500 mg PO BID #0 Torsemide [Demadex] 20 mg PO DAILY #30 tablet Isosorbide Mononitrate ER [Imdur] 30 mg PO DAILY Cholecalciferol [Vitamin D3 (25 Mcg = 1000 Iu)] 25 mcg PO DAILY Discharge Medication List Pantoprazole Sodium [Protonix] 40 mg PO DAILY 01/20/18 [History] allopurinoL [Zyloprim] 100 mg PO DAILY 01/20/18 [History] amLODIPine [Norvasc] 10 mg PO DAILY 01/20/18 [History] lisinopriL 40 mg PO DAILY 01/20/18 [History] Potassium Chloride ER [K-Dur 20] 20 meq PO BID 02/08/19 [History] Tamsulosin HCl [Flomax] 0.4 mg PO BID 02/08/19 [History] Metoprolol Tartrate [Lopressor] 75 mg PO BID 02/17/19 [History] Aspirin 81 mg PO DAILY #90 chew 05/27/19 [Rx] Atorvastatin [Lipitor] 80 mg PO DAILY #90 tab 05/27/19 [Rx] Clopidogrel [Plavix] 75 mg PO DAILY #90 tab 05/27/19 [Rx] Nitroglycerin Sl Tabs [Nitrostat] 0.4 mg SUBLINGUAL Q5M PRN #25 tab 05/27/19 [Rx] Torsemide [Demadex] 20 mg PO DAILY #30 tablet 05/27/19 [Rx] metFORMIN HCL [Glucophage] 500 mg PO BID #0 05/27/19 [Rx] Isosorbide Mononitrate ER [Imdur] 30 mg PO DAILY 08/24/19 [History] Cholecalciferol [Vitamin D3 (25 Mcg = 1000 Iu)] 25 mcg PO DAILY 12/19/20 [History] Follow up Appointment(s)/Referral(s): [facility] [NON-STAFF] - As Needed Thuy Alvarado MD [STAFF PHYSICIAN] - 02/05/21 [facility], [NON-STAFF] - 1-2 Days Alvaro Arias DO [REFERRING] - 1-2 days Patient Instructions/Handouts: Colorectal Polyps (DC), Colonoscopy (DC) Activity/Diet/Wound Care/Special Instructions: Activity: [] Diet: [] Wound Care: [] Special Instructions: Will need to have a colonoscopy in the future due to low iron levels and ileus Discharge Disposition: OTHER INSTITUTION NOT DEFINED
[2021-01-16] MEDS ORDERED: CEFTAROLINE FOSAMIL IVPB SCH (05:00)
[2021-01-16] MEDS ORDERED: SODIUM CHLORIDE 0.9% IVPB SCH (05:00)
== END 2021-01-15 18:06 | disposition short-term general hospital (02) | DRG 280 ==
LOC: EC 06:01 → 3SCARD 07:22 → 2SICU 12-23 22:51 → 5NMEDONC 12-27 16:29 → 2SICU 12-30 00:44 → 4SSUR 01-04 21:13 → 3SCARD 01-07 16:02
PROVIDERS: ADMIT Internal Medicine; ATTEND Internal Medicine
PROC: 4A023N7 Measurement of Cardiac Sampling and Pressure, Left Heart, Percutaneous Approach (ICD-10-PCS; principal; 2020-12-23)
PROC: B2111ZZ Fluoroscopy of Multiple Coronary Arteries using Low Osmolar Contrast (ICD-10-PCS; 2020-12-23)
PROC: B2181ZZ Fluoroscopy of Left Internal Mammary Bypass Graft using Low Osmolar Contrast (ICD-10-PCS; 2020-12-23)
PROC: 3E033XZ Introduction of Vasopressor into Peripheral Vein, Percutaneous Approach (ICD-10-PCS; 2020-12-23)
PROC: 5A12012 Performance of Cardiac Output, Single, Manual (ICD-10-PCS; 2020-12-23)
PROC: 05HC33Z Insertion of Infusion Device into Left Basilic Vein, Percutaneous Approach (ICD-10-PCS; 2021-01-02)
PROC: 0DJD8ZZ Inspection of Lower Intestinal Tract, Via Natural or Artificial Opening Endoscopic (ICD-10-PCS; 2021-01-04)
PROC: 05HC33Z Insertion of Infusion Device into Left Basilic Vein, Percutaneous Approach (ICD-10-PCS; 2021-01-14)
DX: I13.0 Hypertensive heart and chronic kidney disease with heart failure and stage 1 through stage 4 chronic kidney disease, or unspecified chronic kidney disease (principal); I33.0 Acute and subacute infective endocarditis; I21.4 Non-ST elevation (NSTEMI) myocardial infarction; A41.02 Sepsis due to Methicillin resistant Staphylococcus aureus; J96.01 Acute respiratory failure with hypoxia; J12.82 Pneumonia due to coronavirus disease 2019; N17.0 Acute kidney failure with tubular necrosis; I50.23 Acute on chronic systolic (congestive) heart failure; U07.1 COVID-19; G93.41 Metabolic encephalopathy; J15.9 Unspecified bacterial pneumonia; I46.9 Cardiac arrest, cause unspecified; R18.8 Other ascites; K56.7 Ileus, unspecified; E87.1 Hypo-osmolality and hyponatremia; E87.2 Acidosis; I48.20 Chronic atrial fibrillation, unspecified; L89.302 Pressure ulcer of unspecified buttock, stage 2; D69.6 Thrombocytopenia, unspecified; I27.20 Pulmonary hypertension, unspecified; E11.649 Type 2 diabetes mellitus with hypoglycemia without coma; D63.1 Anemia in chronic kidney disease; E11.22 Type 2 diabetes mellitus with diabetic chronic kidney disease; E11.65 Type 2 diabetes mellitus with hyperglycemia; N18.32 Chronic kidney disease, stage 3b; E11.39 Type 2 diabetes mellitus with other diabetic ophthalmic complication; I70.0 Atherosclerosis of aorta; I25.5 Ischemic cardiomyopathy; E83.42 Hypomagnesemia; I25.10 Atherosclerotic heart disease of native coronary artery without angina pectoris; I44.0 Atrioventricular block, first degree; E87.6 Hypokalemia; I08.3 Combined rheumatic disorders of mitral, aortic and tricuspid valves; E78.5 Hyperlipidemia, unspecified; K63.5 Polyp of colon; K64.8 Other hemorrhoids; M47.816 Spondylosis without myelopathy or radiculopathy, lumbar region; D50.9 Iron deficiency anemia, unspecified; N14.1 Nephropathy induced by other drugs, medicaments and biological substances; T50.2X5A Adverse effect of carbonic-anhydrase inhibitors, benzothiadiazides and other diuretics, initial encounter; T50.8X5A Adverse effect of diagnostic agents, initial encounter; H40.9 Unspecified glaucoma; H42 Glaucoma in diseases classified elsewhere; I49.3 Ventricular premature depolarization; I25.2 Old myocardial infarction; K21.9 Gastro-esophageal reflux disease without esophagitis; G89.29 Other chronic pain; M51.36 Other intervertebral disc degeneration, lumbar region; M79.601 Pain in right arm; M79.602 Pain in left arm; M10.9 Gout, unspecified; M19.90 Unspecified osteoarthritis, unspecified site; Z79.82 Long term (current) use of aspirin; Z79.84 Long term (current) use of oral hypoglycemic drugs; Z79.02 Long term (current) use of antithrombotics/antiplatelets; Z79.899 Other long term (current) drug therapy; Z95.1 Presence of aortocoronary bypass graft; Z95.5 Presence of coronary angioplasty implant and graft; Z87.891 Personal history of nicotine dependence; Z87.81 Personal history of (healed) traumatic fracture; Z98.42 Cataract extraction status, left eye; Z98.41 Cataract extraction status, right eye; Z96.643 Presence of artificial hip joint, bilateral; Z87.39 Personal history of other diseases of the musculoskeletal system and connective tissue; Z98.890 Other specified postprocedural states; Z88.6 Allergy status to analgesic agent; W19.XXXA Unspecified fall, initial encounter; Z82.49 Family history of ischemic heart disease and other diseases of the circulatory system
CPT/HCPCS: 36410; 36415; 36600; 45378; 70450; 71045; 71046; 71110; 71250; 72148; 74018; 74019; 74176; 76937; 78306; 80048; 80053; 80202; 81001; 82105; 82378; 82533; 82550; 82728; 82805; 83036; 83540; 83550; 83605; 83615; 83690; 83735; 83880; 84100; 84132; 84145; 84146; 84295; 84484; 85025; 85027; 85379; 85610; 85652; 85730; 86140; 86304; 87040; 87070; 87077; 87086; 87186; 87205; 87324; 87635; 93005; 93306; 93459; 94640; 94660; 94760; 95816; 99285